=== PATIENT | male | born 1985 | race African-American/Black ===

== ENCOUNTER → 2020-09-15 07:55 | Outpatient (BNVA) | payer OTHER, SELFPAY | PROVIDERS: PCP Physician Assistant; Visit Provider Internal Medicine | DX: E11.59 Type 2 diabetes mellitus with other circulatory complications (principal); I10 Essential (primary) hypertension; E78.5 Hyperlipidemia, unspecified; Z79.4 Long term (current) use of insulin | CPT/HCPCS: 82947; 99212 ==

== ENCOUNTER 2020-09-15 08:56 | Outpatient (REF) | payer OTHER, SELFPAY ==
[2020-09-15 10:31] LABS: Hematocrit 34.5 % (42-52); Hemoglobin 10.9 g/dl (14.0-18.0); Mean Corpuscular HGB Conc 31.6 g/dl (31.0-36.0); Mean Corpuscular Hemoglobin 28.5 pg (27.0-33.0); Mean Corpuscular Volume 90.1 fL (80-98); Mean Platelet Volume 10.3 fL (9.4-12.4); Platelet Count 366 X10*3/uL (160-400); Red Blood Count 3.83 X10*6/uL (4.60-5.80); Red Cell Distribution Width 12.4 % (11.0-16.0); White Blood Count 6.4 X10*3/uL (4.8-10.8)
[2020-09-15 10:38] LABS: Alanine Aminotransferase 18 U/L (0-40); Albumin Level 4.2 g/dL (3.5-5.0); Alkaline Phosphatase 124 U/L (39-117); Anion Gap 15 (12-20); Aspartate Amino Transferase 14 U/L (5-37); Bilirubin Total 0.4 mg/dL (0.0-1.0); Blood Urea Nitrogen 26 mg/dL (9-16); Calcium 9.5 mg/dL (8.4-10.2); Carbon Dioxide 28 mmol/L (22-29); Chloride 102 mmol/L (96-108); Cholesterol 174 mg/dL; Estimated Glomerular Filt Rate 58; Glucose Fasting 116 mg/dL (60-99); HDL Cholesterol 25 mg/dL; Iron 52 mcg/dL (45-160); LDL Cholesterol Calculated 106 mg/dl; Percent Iron Saturation 19 % (15-50); Potassium 4.5 mmol/L (3.3-5.1); Sodium 140 mmol/L (135-145); Total Iron Binding Capacity 277 mcg/dL (228-428); Total Protein 7.3 g/dL (6.5-8.0); Triglycerides 216 mg/dL; Unsaturated Iron Binding 225 ug/dL
[2020-09-15 10:51] LABS: Vitamin D 25-OH Total 23.4 ng/mL (>30)
[2020-09-15 10:58] LABS: TSH reflex Free T4 2.96 uIU/mL (0.32-4.0)
[2020-09-15 11:06] LABS: Microalbum/Creatinine Ratio Ur 814.9 ug/mg cr
[2020-09-16 06:07] LABS: LDL Cholesterol Direct 113 mg/dL (<100)
[2020-09-22 14:46] LABS: Insulinoma associated 2 aatb <5.4 U/mL (<5.4)
[2020-09-22 23:51] LABS: Islet Cell Antibody Screen NEGATIVE (NEGATIVE)
[2020-09-23 08:06] LABS: Glutamic acid decarboxylase Ab <5 IU/mL (<5)
== END 2020-09-15 08:57 | disposition home or self-care (01) ==
LOC: HO.10HDL 08:56
PROVIDERS: Physician Assistant; Absent Provider Internal Medicine; Visit Provider Internal Medicine
DX: E11.59 Type 2 diabetes mellitus with other circulatory complications (principal); Z79.4 Long term (current) use of insulin; D50.9 Iron deficiency anemia, unspecified; E55.9 Vitamin D deficiency, unspecified
CPT/HCPCS: 36415; 80053; 80061; 82043; 82306; 83540; 83721; 84443; 85027; 86255; 86341

== ENCOUNTER → 2020-10-14 13:03 | Outpatient (BNVA) | payer OTHER, SELFPAY | PROVIDERS: PCP Physician Assistant; Visit Provider Dietitian, Registered ==

== ENCOUNTER → 2020-11-01 13:03 | Outpatient (BNVA) | payer OTHER, SELFPAY | PROVIDERS: PCP Physician Assistant; Visit Provider Internal Medicine ==

== ENCOUNTER → 2020-11-12 11:11 | Outpatient (BNVA) | payer OTHER, SELFPAY | PROVIDERS: PCP Physician Assistant; Visit Provider Dietitian, Registered | DX: E11.59 Type 2 diabetes mellitus with other circulatory complications (principal); Z79.4 Long term (current) use of insulin | CPT/HCPCS: 97803 ==

== ENCOUNTER → 2020-11-19 08:22 | Outpatient (BNVA) | payer OTHER, SELFPAY | PROVIDERS: PCP Physician Assistant; Visit Provider Surgery ==

== ENCOUNTER → 2020-11-24 12:58 | Outpatient (BNVA) | payer OTHER, SELFPAY | PROVIDERS: PCP Physician Assistant; Visit Provider Physician Assistant ==

== ENCOUNTER 2020-12-09 08:48 | Outpatient (REF) | payer OTHER, SELFPAY ==
--- NOTE | ~2020-12-09 | US_ITS ---
EXAMINATION: US COMPLETE ABDOMEN WITH LIVER ELASTOGRAPHY CLINICAL INFORMATION: Type 2 diabetes mellitus with other circulatory findings. COMPARISON: None. TECHNIQUE: Real-time imaging of the abdominal viscera. Noninvasive ultrasound liver fibrosis assessment is performed using Jose Martin ElastPQ point quantification shear wave elastography (pSWE) with a C5-2 MHz transducer. Multiple elastography samples are obtained. FINDINGS: PANCREAS: The body of the pancreas appears homogeneous in echotexture. The head and the tail of the pancreas are obscured by overlying gas. ABDOMINAL AORTA: The proximal, middle, and distal aortic segments are normal in caliber. INFERIOR VENA CAVA: Visualized portions are normal. LIVER: The liver demonstrates normal size, contour and increased echogenicity. There is a focal area of fatty sparing around the gallbladder. No other focal lesion or intrahepatic biliary duct dilatation. The right lobe measures 22.3 cm in length. The left lobe measures 18.2 cm in length. Portal flow is hepatopedal. Shear wave liver elastography median stiffness is 2.62 m/s (reference: normal median stiffness is 1.3 m/s or less). IQR/median stiffness to assess sampling precision is 0.31 (reference: good quality data set is IQR/median stiffness of 0.15 or less). GALLBLADDER: Normal. The gallbladder is physiologically distended without evidence of stones, sludge, polyps, wall thickening or pericholecystic fluid. COMMON BILE DUCT: Normal in caliber measuring 0.7 cm in diameter. RIGHT KIDNEY: Normal. No hydronephrosis. No renal calculi or focal parenchymal lesions. The kidney measures 12.0 cm in maximum dimension. LEFT KIDNEY: Normal. No hydronephrosis. No renal calculi or focal parenchymal lesions. The kidney measures 13.1 cm in maximum dimension. SPLEEN: Normal. The spleen measures 9.5 cm in maximum dimension. FREE FLUID: None. US/US abdomen comp w elastography IMPRESSION: 1. Hepatic steatosis with area of focal fatty sparing around the gallbladder. 2. Liver elastography: Highly suggestive of CSPH. REFERENCE: Society of Radiologists in Ultrasound Liver Stiffness Thresholds (2019): LIVER STIFFNESS THRESHOLDS: *Liver Stiffness equal or less than 1.3 m/s: High probability of being normal. *Liver Stiffness less than 1.7 m/s: In the absence of other known clinical signs, rules out compensated advanced chronic liver disease. *Liver Stiffness 1.7-2.1 m/s: Suggestive of compensated advanced chronic liver disease but need further test for confirmation. *Liver Stiffness over 2.1 m/s: Rules in compensated advanced chronic liver disease. *Liver Stiffness over 2.4 m/s: Suggestive of clinically significant portal hypertension. QUALITY OF DATA SET: *IQR/Median value equal or less than 0.15 implies a quality data set. *IQR/Median value over 0.15 implies a poor quality data set. SIGNIFICANT CHANGE FROM PRIOR EXAM: Significant change if liver stiffness measurement is 10% or greater from prior exam. OTHER CONSIDERATIONS: The stage of liver fibrosis may be overestimated in the setting of acute hepatitis, liver inflammation, elevated liver function tests, hepatic vascular congestion, obstructive cholestasis, non-fasting state, and infiltrative diseases such as amyloidosis and lymphoma. In some patients with NAFLD, the liver stiffness thresholds for compensated advanced chronic liver disease may be lower. In causes other than viral hepatitis and NAFLD, liver stiffness thresholds are not well established.
--- NOTE | ~2020-12-09 | FL_ITS ---
EXAMINATION: XR GI SERIES CLINICAL INFORMATION: Type 2 diabetes mellitus. COMPARISON: None TECHNIQUE: Routine upper GI single-contrast study. FINDINGS: Following oral administration of thin barium in recumbent position, there is normal propagation of bolus from the oral cavity through the pharynx, esophagus into stomach without any evidence of obstruction, narrowing or stricture. The gastroesophageal junction is widely patent. A large gastroesophageal reflux is seen. There is normal flow seen through the stomach into the duodenum. The course, caliber and peristalsis of the stomach and the duodenum are normal. The mucosal pattern of the stomach and the duodenum is normal. FLUOROSCOPY TIME: 1.3 minutes DOSE AREA PRODUCT: 57.362 uGy-m2 (microgray-meter squared) FL/FL upper GI series IMPRESSION: Large gastroesophageal reflux without hiatal hernia. Otherwise, unremarkable single-contrast barium study in the recumbent position.
--- NOTE | ~2020-12-09 | XR_ITS ---
EXAMINATION: XR CHEST CLINICAL INFORMATION: Type 2 diabetes. COMPARISON: None TECHNIQUE: 2 views of the chest were obtained. FINDINGS: No significant abnormality is noted involving the heart, lungs, mediastinum, bony thorax or soft tissues. XR/XR chest 2V IMPRESSION: Unremarkable chest examination.
[2020-12-09 11:17] LABS: MANUAL DIFF FLAG NO
[2020-12-09 11:32] LABS: Estimated Average Glucose 220 mg/dL; Hemoglobin A1c % 9.3 %
[2020-12-09 11:46] LABS: Basophils Percent Auto 0.7 % (0-2); Eosinophils Absolute Auto 0.2 X10*3/uL (0.0-0.4); Eosinophils Percent Auto 3.2 % (0-4); Hematocrit 35.9 % (42-52); Hemoglobin 11.3 g/dl (14.0-18.0); Imm Gran Abs Auto 0.02 X10*3/uL (0.00-0.03); Imm Gran Pct Auto 0.3 % (0.0-0.4); Lymphocytes Percent Auto 33.9 % (20-40); Mean Corpuscular HGB Conc 31.5 g/dl (31.0-36.0); Mean Corpuscular Hemoglobin 28.2 pg (27.0-33.0); Mean Corpuscular Volume 89.5 fL (80-98); Mean Platelet Volume 10.2 fL (9.4-12.4); Monocytes Absolute Auto 0.4 X10*3/uL (0.1-1.2); Monocytes Percent Auto 6.9 % (2-11); Neutrophils Absolute Auto 3.2 X10*3/uL (2.0-8.3); Platelet Count 362 X10*3/uL (160-400); Red Blood Count 4.01 X10*6/uL (4.60-5.80); Red Cell Distribution Width 12.2 % (11.0-16.0); White Blood Count 5.9 X10*3/uL (4.8-10.8)
[2020-12-09 11:52] LABS: Alanine Aminotransferase 21 U/L (0-40); Albumin Level 4.6 g/dL (3.5-5.0); Alkaline Phosphatase 119 U/L (39-117); Anion Gap 14 (12-20); Aspartate Amino Transferase 16 U/L (5-37); Bilirubin Total 0.6 mg/dL (0.0-1.0); Blood Urea Nitrogen 28 mg/dL (9-16); C Reactive Protein 0.93 mg/dL (< or = 0.50); Calcium 9.9 mg/dL (8.4-10.2); Carbon Dioxide 27 mmol/L (22-29); Chloride 105 mmol/L (96-108); Cholesterol 144 mg/dL; Estimated Glomerular Filt Rate 52; Glucose Random 80 mg/dL (60-115); HDL Cholesterol 22 mg/dL; LDL Cholesterol Calculated 86 mg/dl; Potassium 4.7 mmol/L (3.3-5.1); Sodium 141 mmol/L (135-145); Total Protein 7.9 g/dL (6.5-8.0); Triglycerides 183 mg/dL
[2020-12-09 11:56] LABS: Ferritin 208 ng/mL (20-250); TSH reflex Free T4 1.89 uIU/mL (0.32-4.0); Vitamin D 25-OH Total 27.6 ng/mL (>30)
[2020-12-09 12:13] LABS: Folate 9.2 ng/mL (> or = 4.0); Vitamin B12 560 pg/mL (200-900)
[2020-12-10 17:57] LABS: Calcium (PTHI) 9.8 mg/dL (8.6-10.3); PTHI 87 pg/mL (14-64)
[2020-12-12 23:47] LABS: Zinc 82 mcg/dL (60-130)
[2020-12-14 11:41] LABS: Vitamin A 82 mcg/dL (38-98)
[2020-12-15 12:44] LABS: Vitamin B1 7 nmol/L (8-30)
== END 2020-12-09 08:49 | disposition home or self-care (01) ==
LOC: HO.US 08:48
PROVIDERS: PCP Physician Assistant; Visit Provider Surgery
DX: K21.9 Gastro-esophageal reflux disease without esophagitis (principal); S88.119A Complete traumatic amputation at level between knee and ankle, unspecified lower leg, initial encounter; E11.59 Type 2 diabetes mellitus with other circulatory complications; E66.01 Morbid (severe) obesity due to excess calories; E78.5 Hyperlipidemia, unspecified; G47.30 Sleep apnea, unspecified; I10 Essential (primary) hypertension; G47.10 Hypersomnia, unspecified; G47.19 Other hypersomnia; Z79.4 Long term (current) use of insulin
CPT/HCPCS: 36415; 71046; 74240; 76705; 76981; 80053; 80061; 82306; 82607; 82728; 82746; 83036; 83525; 83970; 84425; 84443; 84590; 84630; 85025; 86140

== ENCOUNTER → 2020-12-13 08:18 | Outpatient (BNVA) | payer OTHER, SELFPAY | PROVIDERS: PCP Physician Assistant; Visit Provider Surgery ==

== ENCOUNTER → 2020-12-14 11:29 | Outpatient (BNVA) | payer OTHER, SELFPAY | PROVIDERS: PCP Physician Assistant; Visit Provider Physician Assistant ==

== ENCOUNTER → 2020-12-15 08:05 | Outpatient (BNVA) | payer OTHER, SELFPAY | PROVIDERS: PCP Physician Assistant; Visit Provider Dietitian, Registered | DX: E66.01 Morbid (severe) obesity due to excess calories (principal); Z68.43 Body mass index [BMI] 50.0-59.9, adult | CPT/HCPCS: 97802 ==

== ENCOUNTER 2020-12-30 07:13 | Day surgery (SDC) | payer OTHER, SELFPAY ==
[2020-12-23 13:15] VITALS: BMI 52.4
--- NOTE | 2020-12-28 14:43 | P.CONAN_ITS ---
Documented by User: Doreen Hernández 12/29/20 08:58 HPI - Anesthesia Eval Consult details Narrative: 35yo M for Upper Endoscopy h/o BKA L eye blind PMFSH Active Problems Active Problems: All Active Problems (Updated 12/23/20 @ 12:58 by Jessica Gloria) Type 2 diabetes mellitus (Acute) HTN (hypertension) (Acute) Below knee amputation (Acute) Morbidly obese (Acute) GERD (gastroesophageal reflux disease) (Acute) Amputated right leg (Acute) Phantom pain (Acute) Adjustment disorder, unspecified (Acute) Depression (Acute) Neuropathy (Acute) CVA (cerebral vascular accident) (Acute) Sleep apnea (Acute) Obesity (Acute) Vitamin D deficiency (Acute) HLD (hyperlipidemia) (Acute) Past Medical History Medical History Below knee amputation Blind left eye CVA (cerebral vascular accident) Depression GERD (gastroesophageal reflux disease) GERD (gastroesophageal reflux disease) HLD (hyperlipidemia) HTN (hypertension) Neuropathy Obesity Right below-knee amputee Sleep apnea Type 2 diabetes mellitus Vitamin D deficiency Family History Family History Mother Diabetes Father Prostate cancer Paternal Aunt Diabetes Brother No problems noted. Brother No problems noted. Brother No problems noted. Brother No problems noted. Brother No problems noted. Sister No problems noted. Surgical History Surgical History History of amputation of right foot Hx of eye surgery Social History Social History Alcohol intake: never Patient Tobacco Use Status: Never used Tobacco Use of substances other than those prescribed or required for medical reasons: No Have you been hit, kicked, punched, or otherwise hurt by someone within the past year? If so, by whom?: No Are you DNR?: No Advance Directives: No Advance Directives Information Provided: No Advance Directives on File: No Recently lost weight without trying: No Meds Allergies Allergy/AdvReac Type Severity Reaction Status Date / Time No Known Allergies Allergy Verified 12/23/20 12:58 Home Medications Medication Instructions Recorded Confirmed Last Taken Type lancets 28 gauge #100 ea 06/21/20 11/19/20 Unknown History blood sugar diagnostic #10 ea 09/15/20 11/19/20 Unknown History dorzolamide-timolol 1 drp OPHTHALMIC-RIGHT BID 12/23/20 12/23/20 Unknown History latanoprost 1 drp OPHTHALMIC (EYE) BEDTIME 12/23/20 12/23/20 Unknown History lisinopril 1 tab PO DAILY 12/23/20 12/23/20 Unknown History Exam Exam Date and Time: December 28, 2020 1443 Height,Weight and Vital Signs: Height 5 ft 9 in Weight 161.025 kg Pertinent Lab Results Pertinent Lab Results: Laboratory Tests 12/09/20 12/09/20 10:35 10:35 WBC 5.9 Hgb 11.3 L Hct 35.9 L Plt Count 362 Sodium 141 Potassium 4.7 Chloride 105 Carbon Dioxide 27 BUN 28 H Creatinine 1.52 H Assessment and Plan Assessment Anesthesia Assessment: Chart Reviewed Documented by User: Cristal Sher 12/30/20 08:23 [facility] Past Medical History Medical History Below knee amputation Blind left eye CVA (cerebral vascular accident) Depression GERD (gastroesophageal reflux disease) GERD (gastroesophageal reflux disease) HLD (hyperlipidemia) HTN (hypertension) Neuropathy Obesity Right below-knee amputee Sleep apnea Type 2 diabetes mellitus Vitamin D deficiency Family History Family History Mother Diabetes Father Prostate cancer Paternal Aunt Diabetes Brother No problems noted. Brother No problems noted. Brother No problems noted. Brother No problems noted. Brother No problems noted. Sister No problems noted. Surgical History Surgical History History of amputation of right foot Hx of eye surgery Social History Social History Alcohol intake: never Patient Tobacco Use Status: Never used Tobacco Use of substances other than those prescribed or required for medical reasons: No Have you been hit, kicked, punched, or otherwise hurt by someone within the past year? If so, by whom?: No Are you DNR?: No Advance Directives: No Advance Directives Information Provided: No Advance Directives on File: No Recently lost weight without trying: No Meds Allergies Allergy/AdvReac Type Severity Reaction Status Date / Time No Known Allergies Allergy Verified 12/23/20 12:58 Home Medications Medication Instructions Recorded Confirmed Last Taken Type lancets 28 gauge #100 ea 06/21/20 11/19/20 Unknown History blood sugar diagnostic #10 ea 09/15/20 11/19/20 Unknown History dorzolamide-timolol 1 drp OPHTHALMIC-RIGHT BID 12/23/20 12/23/20 Unknown History latanoprost 1 drp OPHTHALMIC (EYE) BEDTIME 12/23/20 12/23/20 Unknown History lisinopril 1 tab PO DAILY 12/23/20 12/23/20 Unknown History Exam Airway Mallampati Class: III TM Dist: >3cm Neck ROM: Limited Loose/Missing/Broken Teeth: No Heart: RRR Lungs: CTA Assessment and Plan Assessment Anesthesia Assessment: Anesthesia Plan Discussed and Chart Reviewed Final Anesthetic Review NPO: Yes ASA Class: III Final Preanesthetic Review: Meds/Allgs Chart Reviewed, Consent Obtained/Reviewed and Anes Risks/Benef Reviewed Patient Risk: Intermediate Procedure Risk: Intermediate Anesthetic Plan Anesthetic Plan: MAC: Disposition: Standard PACU
[2020-12-30 07:27] LABS: Glucose, Whole Blood 272 mg/dL (60-115)
[2020-12-30 07:29] VITALS: BP 168/87; PULSE 98; RESP 18; TEMP 35.9; O2SAT 98
--- NOTE | 2020-12-30 07:41 | MHC.SHP ---
Pre-Procedural Eval Section A The patient is an INPATIENT: No The History & Physical has been completed within 30 days and I have reviewed it.: Yes Section B Chief Complaint: GERD Details of Present Illness: GERD Relevant Family History (Specify if Yes): No Relevant Social History: None Present Medications: None Medical History: No relevant PMH History of Previous Operations: No relevant previous surgery Allergies: Allergies Allergy/AdvReac Type Severity Reaction Status Date / Time No Known Allergies Allergy Verified 12/23/20 12:58 Review of Systems Sugical H&P ROS: Negative: Constitution, Cardiovascular, Respiratory, Neurological, Psychiatric, Hem-Onc, Allergic/Immunologic, Gastrointestinal, Genitourinary, Musculoskeletal, Integumentary, Endocrine and Eyes/Ears/Nose/Throat Exam Surgical H&P Exam: Normal: HEENT, Normal: Heart, Normal: Lungs, Normal: Extremities, Normal: Abdomen, Normal: Skin and Normal: Neurological Plan Diagnosis/Plan: Unchanged (EGD to assess for GERD and H pylori) I have reviewed the history and physical and performed a pertinent physical examination on my patient. No changes have occurred unless specified.
--- NOTE | 2020-12-30 08:02 | PM.OP ---
Brief Operative Note Date of Service: 12/30/20 Pre-op diagnosis: GERD Post-op diagnosis: same (Hiatal hernia and esophagitis) Procedure: PROCEDURE DATE: 12/30/2020 PREOPERATIVE DIAGNOSIS: GERD and obesity POSTOPERATIVE DIAGNOSIS: Same as above. 1) small hiatal hernia, 2) distal gastritis, 3) esophagitis III, PROCEDURE: [id number] with biopsies Surgeon: Andrés Hays M.D.. Ph.D. Sanitation Supervisor: None Anesthesia: IV sedation Estimated blood loss: Minimal FINDINGS AND PROCEDURE: OPERATIVE INDICATIONS: The patient is a 35 year old female known to nd who is evaluated for morbid obesity and bariatric surgery. She had severe GERD and was not able to discontinue the PPI for 2 weeks to perform the H. pylori breath test. She presents for an endoscopy and a biopsy. Risks and complications of the surgery were discussed with the patient in advance particularly the possibility of perforation or bleeding that may require surgical intervention. The patient understood the risks and was in agreement with the plan. PROCEDURE: After informed consent was obtained by the patient, the patient was transferred to the Operating Room and was placed in the supine position. After successful induction of IV sedation, a mouth block was inserted and the patient was placed in the left lateral decubitus position. An upper endoscopy was performed next, the oropharynx and esophagus appeared within the normal limits. There was a small hiatal hernia. The z-line was irregular with tongues of gastric mucosa protruding into the esophagus in more than 50% circumference. One biopsy was obtained from the distal esohagus 2-3 cm proximal to the GE junction and two additional biopsies from the GE junction. The stomach was entered and it appeared to be of normal size. There was mild gastritis at distal antrum. There was no stricture or ulcer. Biopsies were obtained from the proximal stomach as well as the distal antrum. No significant bleeding was noted from any of the biopsy sites. The scope was then advanced into the duodenum which appeared to be normal as well. At that point the duodenum and the stomach were decompressed and the scope was withdrawn from the patient's mouth. The patient extubated and was transferred in stable condition to the Recovery Room for further care. I was present and performed all steps of the procedure. There were no residents to assist with this case. Andrés Hays M.D., Ph.D. Surgeon: Neri Hays MD Anesthesia: MAC Was an Sanitation Supervisor used for this Procedure?: No Estimated blood loss (mL): 0 IV fluids (mL): 400 Urine output (mL): 0 (No [place] to record) Pathology: other (1) GEJ x2, distal esophagus x1, 3) proximal stomach x1, 4) antrum x1) Condition: stable Disposition: PACU
[2020-12-30] MEDS: 0.9 % Sodium Chloride 1,000 ML 50 ML IVCONT (08:19)
[2020-12-30 08:55] VITALS: BP 113/55; PULSE 63; RESP 16; TEMP 36.6; O2SAT 96
[2020-12-30 09:10] VITALS: BP 141/85; PULSE 97; RESP 18; O2SAT 94
[2020-12-30 09:34] VITALS: BP 151/86; PULSE 95; RESP 18; O2SAT 96
== END 2020-12-30 10:26 ==
LOC: HO.SSS 07:13
PROVIDERS: PCP Physician Assistant; Visit Provider Surgery
PROC: 0DJ08ZZ Inspection of Upper Intestinal Tract, Via Natural or Artificial Opening Endoscopic (ICD-10-PCS; CPT 43235; principal; 2020-12-30 07:30)
DX: K21.9 Gastro-esophageal reflux disease without esophagitis (principal); K29.50 Unspecified chronic gastritis without bleeding; K44.9 Diaphragmatic hernia without obstruction or gangrene; K20.80 Other esophagitis without bleeding; E66.9 Obesity, unspecified; I10 Essential (primary) hypertension; G47.33 Obstructive sleep apnea (adult) (pediatric); E11.9 Type 2 diabetes mellitus without complications; G62.9 Polyneuropathy, unspecified; E78.5 Hyperlipidemia, unspecified; Z79.4 Long term (current) use of insulin; E55.9 Vitamin D deficiency, unspecified; Z89.511 Acquired absence of right leg below knee; Z79.899 Other long term (current) drug therapy
CPT/HCPCS: 43239; 82947; 88305; 88342

== ENCOUNTER → 2021-01-04 14:01 | Outpatient (BNVA) | payer OTHER, SELFPAY | PROVIDERS: PCP Physician Assistant; Referring Provider Physician Assistant; Visit Provider Internal Medicine | DX: Z01.810 Encounter for preprocedural cardiovascular examination (principal); E66.01 Morbid (severe) obesity due to excess calories; E11.8 Type 2 diabetes mellitus with unspecified complications; I10 Essential (primary) hypertension; Z86.73 Personal history of transient ischemic attack (TIA), and cerebral infarction without residual deficits | CPT/HCPCS: 93005; 99202 ==

== ENCOUNTER → 2021-01-10 07:47 | Outpatient (BNVA) | payer OTHER, SELFPAY | PROVIDERS: PCP Physician Assistant; Visit Provider Surgery ==

== ENCOUNTER → 2021-01-13 08:10 | Outpatient (BNVA) | payer OTHER, SELFPAY | PROVIDERS: PCP Physician Assistant; Visit Provider Dietitian, Registered | DX: E66.01 Morbid (severe) obesity due to excess calories (principal); Z68.43 Body mass index [BMI] 50.0-59.9, adult | CPT/HCPCS: 97803 ==

== ENCOUNTER → 2021-01-19 13:56 | Outpatient (REF) | payer OTHER, SELFPAY ==
--- NOTE | 2021-01-19 14:01 | CA_ITS ---
Transthoracic Echocardiogram Patient (Last, First, Middle): Kaitlynn Gómezrus, Gender: Male Date of : 1985 Age: 35 Procedure Date: 01/19/2021 Procedure Type: Transthoracic Echocardiogram Location: OP Height: 175.26 cm Weight: 161.03 kg BSA: 2.64 m2 Heart Rate: bpm BP: 118 / 76 mmHg Engineering Program Manager: MIKKI Referring MD: Jaguar Dodge MD Symptoms: Z01.810 - Encounter for preprocedural cardiovascular exam... Study Quality: Technically Difficult ECG Rhythm: Sinus Conclusions: - The left ventricular systolic function is normal. The visually estimated ejection fraction is between 60-65%. - There is mild mitral annular calcification. - No obvious valvular pathology seen on this study. Findings Procedure Information Contrast agent, definity, is being given per protocol without apparent complications. The patient receives contrast. Left Ventricle Normal left ventricular cavity size. There is moderately increased left ventricular wall thickness. The left ventricular systolic function is normal. The visually estimated ejection fraction is between 60-65%. There is no evidence of regional wall motion abnormalities. E/E prime ratio is between 8 and 15 consistent with indeterminate filling pressures. Evidence suggests grade I (mild) diastolic dysfunction. Right Ventricle Normal right ventricular cavity size and systolic function. Atria The left atrium is mildly dilated. The right atrium is normal in size. Aortic Valve There is a normal trileaflet aortic valve. There is no aortic valve stenosis. There is no aortic valve regurgitation. Mitral Valve There is mild mitral annular calcification. There is no mitral valve regurgitation. There is no mitral valve stenosis. Pulmonic Valve The pulmonic valve was not well visualized. Tricuspid Valve Normal tricuspid valve structure. There is trace tricuspid valve regurgitation. The pulmonary artery systolic pressure is normal. Great Vessels The aortic annulus, sinuses of valsalva, and asc aorta are normal in size. Venous The inferior vena cava was not well visualized. Pericardium/Pleural There is a trivial pericardial effusion. Prior Study Comparison No prior study available for comparison. Recommendations, Care & Conclusions No obvious valvular pathology seen on this study. Measurements M-Mode Liner Measurements Normals - Women/Men AOV Cusps: 2.40 1.5-2.6 cm/m2 2D Linear Measurements IVSd: 1.37 0.6-0.9/0.6-1.0 cm LVIDd: 4.68 3.9-5.3/4.2-5.9 cm LVIDd Index: 1.77 2.4-3.2/2.2-3.1 cm/m2 LVIDs: 3.29 2.0-3.6 cm LVPWd: 1.42 0.7-1.1 cm Ao Root: 3.00 2.1-3.5 cm LA Diam: 4.50 2.7-3.8/3.0-4.0 cm LAIDs Index: 1.70 1.5-2.3 cm/m2 LV Mass: 326.90 67-162/88-224 g LV Mass Index: 123.83 43-95/49-115 g/m2 LVOT Diam: 2.30 3.0+(-)1.3 cm Mitral Valve MV Pk E: 1.35 MV PK A: 1.42 MV Decel Time: 198.00 E/A: 1.00 E'Lateral: 7.83 E'Medial: 10.40 E/E' Med: 13.00 E/E' Lat: 17.20 PHT: 58.00 MVA PHT: 3.79 Decel [place]S: 6.81 Aortic Valve AoV Pk [place]: 1.45 AoV Mn Jordan: 1.01 AoV VTI: 0.25 AoV Pk Grad: 8.00 Aov Mn Grad: 5.00 PETTY Cont.VTI: 3.24 LVOT LVOT Pk [place]: 1.08 LVOT Mn [place]: 0.83 LVOT VTI: 0.20 LVOT Pk Grad: 5.00 LVOT Mn Grad: 3.00 LVOT Diam: 2.30 LVOT Area: 4.15 Diastolic Function MV Pk E: 1.35 MV Pk A: 1.42 E/A: 1.00 E'Medial: 10.40 E/E' Med: 13.00 E' Laterial: 7.83 E/E' Lat: 17.20 Great Vessels Aorta Ao Root-2D: 3.00 2.0-3.7 cm Ao Asc: 2.90 2.1-3.4 cm Pulmonary Valve PV Pk [place]: 1.17 Peak PV Grad: 5.00 Updated in Other Vendor System with Status of Final Jaguar Dodge MD electronically signed on 01/21/2021 1:30:40 PM with status of Final
== END ==
LOC: HO.CARD 13:56
PROVIDERS: Visit Provider Internal Medicine
DX: Z01.810 Encounter for preprocedural cardiovascular examination (principal)
CPT/HCPCS: 93306; Q9957

== ENCOUNTER → 2021-02-02 10:10 | Outpatient (REF) | payer OTHER, SELFPAY ==
--- NOTE | ~2021-02-02 | NM_ITS ---
Lexiscan Myocardial perfusion study Indication: Preoperative cardiac vascular evaluation, assess for coronary disease Technique: The patient was brought in for a Lexiscan perfusion study on 02/02/2021 and was injected 0.4 mg of Lexiscan intravenously. Within a minute of this injection 45 mCi of sestamibi was given intravenously. Images were obtained using the SPECT gamma camera interlaced with the gating device. Images were obtained in supine position. Resting perfusion study was performed on 02/03/2021. Patient was administered 45 mCi of sestamibi intravenously at rest. Images were then obtained in supine position. Total DLP 184mGy-cm. Images were processed with the software and compared side to side in short axis, horizontal long axis and vertical long axis views. Findings: Raw acquisition was reviewed. The stress perfusion study showed diminished tracer uptake along the lateral wall. With CT attenuation correction, there is improved uptake and hence this could all be from soft tissue attenuation artifact. The gated study shows normal LV systolic function with calculated LVEF of 63%. LV cavity is normal in size. The gated study shows diminished thickening in the lateral wall. Resting study shows no significant perfusion abnormality. Gating at rest reveals normal wall motion with ejection fraction at 55%. The findings are consistent with reversible lateral wall defect. NM/NM stuart perf SPECT rest & str Impression: 1. Myocardial perfusion imaging study shows reversible lateral defect but improving with CT attenuation correction. Probably from soft tissue attenuation artifact. Less likely to be from ischemia. 2. Gated LVEF is 63% during stress and 55% during rest. 3. Transient ischemic dilatation not present. EKG component of the test reported separately.
--- NOTE | 2021-02-02 10:18 | CA_ITS ---
Acquisition Time: 2021-02-02 10:24:19 Total Exercise Time: 00:02:00 Test Indications: PREOP Medications: SEE CHART Protocol: LEXISCAN Max HR: 106 BPM 57% of Pred: 184 BPM Max BP: 142/078 mmHG Max Work Load: 1.0 METS Pharmacological stress test with lexiscan injection, while sitting and kicking his left leg, without anginal symptoms, without arrythmia, with normotensive response to injection, with nondiagnostic EKG for ischemia. Nuclear images pending. Test reviewed with Dr Goldstein. Referred By: Jaguar Dodge Overread By: JUAN TORRE
== END ==
LOC: HO.CARD 10:10
PROVIDERS: Visit Provider Internal Medicine
DX: Z01.810 Encounter for preprocedural cardiovascular examination (principal)
CPT/HCPCS: 78452; 93017; A9500; J0280; J2785

== ENCOUNTER → 2021-02-28 13:39 | Outpatient (BNVA) | payer OTHER, SELFPAY | PROVIDERS: PCP Physician Assistant; Referring Provider Physician Assistant; Visit Provider Internal Medicine | DX: Z01.810 Encounter for preprocedural cardiovascular examination (principal); E66.01 Morbid (severe) obesity due to excess calories; E11.8 Type 2 diabetes mellitus with unspecified complications; I10 Essential (primary) hypertension; Z86.73 Personal history of transient ischemic attack (TIA), and cerebral infarction without residual deficits | CPT/HCPCS: 99212 ==

== ENCOUNTER → 2021-03-02 06:55 | Outpatient (BNVA) | payer OTHER, SELFPAY | PROVIDERS: PCP Physician Assistant; Visit Provider Surgery ==

== ENCOUNTER 2021-03-22 14:55 | Emergency (ER) | payer OTHER, SELFPAY ==
--- NOTE | ~2021-03-22 | XR_ITS ---
EXAMINATION: XR TOES, LEFT CLINICAL INFORMATION: First and second toe wound; question osteomyelitis. COMPARISON: None TECHNIQUE: Frontal, oblique and lateral views of the left toes were obtained. FINDINGS: Bony alignment and mineralization are normal. At the lateral articular surface of the base of the distal phalanx of the left great toe, there is a small focal cortical erosion. No periosteal thickening is seen. There is a small avulsion fragment of indeterminate chronicity is seen at the lateral aspect of the first metatarsophalangeal joint. There is mild osteoarthritic change of the left first and fifth metatarsophalangeal joints. A small bunionette is seen of the fifth metatarsal head. There is an old, healed of fracture of the second proximal phalanx. No acute fracture or dislocation is seen. There are atherosclerotic calcifications. There is generalized soft tissue swelling of the first and second toes. No soft tissue gas or foreign body is seen. XR/XR toe LT min 2V IMPRESSION: 1. There is soft tissue swelling of the left great toe. There is a small focal cortical erosion at the lateral aspect of the articular surface of the base of the distal phalanx of the left great toe. This is suspicious for acute osteomyelitis, versus alternatively a tiny osteochondral defect, and could be more fully evaluated with MRI, if clinically indicated. 2. At the lateral aspect of the first metatarsophalangeal joint, there is a small avulsion fragment of indeterminate chronicity. Please correlate clinically. 3. There is mild osteoarthritic change of the left first and fifth metatarsophalangeal joints. 4. The left second toe shows soft tissue swelling, without finding to suggest acute osteomyelitis. There is an old, healed fracture of the left second proximal phalanx. 5. There is a small bunionette is seen of the left fifth metatarsal head.
[2021-03-22 15:42] VITALS: BP 133/75; PULSE 93; RESP 18; TEMP 36.8; O2SAT 98; BMI 53.1
[2021-03-22 19:36] VITALS: BP 135/69; PULSE 90; RESP 18; TEMP 36.6; O2SAT 99
--- NOTE | 2021-03-22 19:47 | ED_ITS ---
HPI - Extremity Injury (Lower) General Chief Complaint: Extremity Injury, Lower <Guy Gutiérrez MD - Last Filed: 03/22/21 21:01> Stated Complaint: toe infection <Guy Gutiérrez MD - Last Filed: 03/22/21 21:01> Time Seen by Provider: 03/22/21 19:47 <Guy Gutiérrez MD - Last Filed: 03/22/21 21:01> Source: patient <Guy Gutiérrez MD - Last Filed: 03/22/21 21:01> Mode of arrival: ambulatory <Guy Gutiérrez MD - Last Filed: 03/22/21 21:01> Limitations: no limitations <Guy Gutiérrez MD - Last Filed: 03/22/21 21:01> History of Present Illness HPI Narrative: patient with left toe infection for past 4 days. patient with diabetic neuropathy, no fever. Patient denies injury. His PMD Dr. Guevara feels that the toe infection might have started with his toe trimming by his pediatrist.. patient is currently on bactrim and Keflex. <Guy Gutiérrez MD - Last Filed: 03/22/21 21:01> MD complaint: other (foot infection) <Guy Gutiérrez MD - Last Filed: 03/22/21 21:01> Onset (ago): day(s) <Guy Gutiérrez MD - Last Filed: 03/22/21 21:01> Related Data Home Medications: Home Medications Medication Instructions Recorded Confirmed lancets 28 gauge #100 ea 06/21/20 03/22/21 dorzolamide 22.3 mg-timolol 6.8 1 drp OPHTHALMIC-RIGHT BID 12/23/20 03/22/21 mg/mL eye drops latanoprost 0.005 % eye drops 1 drp OPHTHALMIC (EYE) BEDTIME 12/23/20 03/22/21 lisinopril 20 mg tablet 1 tab PO DAILY 12/23/20 03/22/21 melatonin 10 mg tablet 10 mg PO DAILY 01/04/21 03/22/21 Previous Rx's Medication Instructions Recorded blood pressure kit-extra large #1 ea 05/17/20 incontinence pad, liner, disp #18 ea 06/08/20 latex gloves (Latex Gloves, Large) #24 ea 06/08/20 alcohol swabs 1 pad TOPICAL QID #200 pad 10/07/20 omeprazole 40 mg capsule,delayed 40 mg PO DAILY 90 Days #90 cap 10/07/20 release pantoprazole 40 mg tablet,delayed 40 mg PO DAILY 90 Days #90 tab 10/07/20 release pen needle, diabetic 31 gauge x #1200 ea 10/07/2012/19 spironolactone 25 mg tablet 25 mg PO DAILY 90 Days #90 tab 10/07/20 miscellaneous medical supply 1 ea MISCELLANEOUS .once per week 10/21/20 28 Days #4 ea atorvastatin 80 mg tablet 80 mg PO BEDTIME 30 Days #30 tab 11/01/20 duloxetine 30 mg capsule,delayed 30 mg PO BID #60 cap 11/14/20 release nifedipine 90 mg tablet,extended 90 mg PO DAILY #30 tab 12/27/20 release 24 hr cholecalciferol (vitamin D3) 25 25 mcg PO DAILY #30 tab 01/06/21 mcg (1,000 unit) tablet (Vitamin D3) furosemide 40 mg tablet 40 mg PO DAILY 90 Days #90 tab 01/06/21 aspirin 81 mg tablet,delayed 81 mg PO DAILY 90 Days #90 tab 02/02/21 release (Adult Aspirin Regimen) ferrous sulfate 325 mg (65 mg 325 mg PO DAILY #30 tab 02/02/21 iron) tablet acetaminophen 650 mg 1,300 mg PO Q8H PRN 90 Days #180 02/10/21 tablet,extended release (Mapap tab Arthritis Pain) carvedilol 25 mg tablet 25 mg PO BID #180 tab 02/16/21 tramadol 50 mg tablet 50 mg PO BID 30 Days #60 tab 02/21/21 insulin regular hum U-500 conc 300 unit SUBCUT .COMPLEX 30 Days 02/26/21 (Humulin R U-500 (Conc) Insulin #18 ml Kwikpen) miscellaneous medical supply 1 ea MISCELLANEOUS ONCE 28 Days #4 03/09/21 ea gabapentin 600 mg tablet 600 mg PO BID 30 Days #60 tab 03/14/21 hydralazine 100 mg tablet 100 mg PO BID #60 tab 03/14/21 blood sugar diagnostic #100 ea 03/18/21 blood sugar diagnostic (FreeStyle #100 ea 03/21/21 Lite Strips) cephalexin 500 mg capsule 500 mg PO Q12H 10 Days #20 cap 03/21/21 sulfamethoxazole 800 1 tab PO Q12H 10 Days #20 tab 03/21/21 mg-trimethoprim 160 mg tablet (Bactrim DS) doxycycline hyclate 100 mg capsule 100 mg PO BID 10 Days #20 cap 03/23/21 <Guy Gutiérrez MD - Last Filed: 03/22/21 21:01> Allergies/Adverse Reactions: Allergies Allergy/AdvReac Type Severity Reaction Status Date / Time No Known Allergies Allergy Verified 03/22/21 15:42 <Guy Gutiérrez MD - Last Filed: 03/22/21 21:01> Review of Systems Constitutional: Constitutional: Reports no additional constitutional complaints <Guy Gutiérrez MD - Last Filed: 03/22/21 21:01> Eyes: Eyes: Reports no additional eye complaints <Guy Gutiérrez MD - Last Filed: 03/22/21 21:01> ENT: Denies dizziness <Guy Gutiérrez MD - Last Filed: 03/22/21 21:01> Cardiovascular: Cardiovascular: Reports no additional cardiovascular complaints <Guy Gutiérrez MD - Last Filed: 03/22/21 21:01> Respiratory: Respiratory: Reports as per HPI <Guy Gutiérrez MD - Last Filed: 03/22/21 21:01> Gastrointestinal: Gastrointestinal: Reports no additional gastrointestinal complaints <Guy Gutiérrez MD - Last Filed: 03/22/21 21:01> Musculoskeletal: Musculoskeletal: Reports no additional musculoskeletal complaints <Guy Gutiérrez MD - Last Filed: 03/22/21 21:01> Integumentary/Breasts: Skin/Breast: Denies rash <Guy Gutiérrez MD - Last Filed: 03/22/21 21:01> Neurologic: Reports system reviewed and no additional complaints, except as documented, Denies dizziness and Denies Sensory deficit (Neuro) <Guy Gutiérrez MD - Last Filed: 03/22/21 21:01> Psychiatric: Psychiatric: Denies anxiety <Guy Gutiérrez MD - Last Filed: 03/22/21 21:01> PMFSH Past Medical History Medical History: Medical History Below knee amputation Blind left eye CVA (cerebral vascular accident) Depression GERD (gastroesophageal reflux disease) GERD (gastroesophageal reflux disease) HLD (hyperlipidemia) HTN (hypertension) Neuropathy Obesity Right below-knee amputee Sleep apnea Type 2 diabetes mellitus Vitamin D deficiency <Guy Gutiérrez MD - Last Filed: 03/22/21 21:01> Surgical History: Surgical History History of amputation of right foot Hx of eye surgery <Guy Gutiérrez MD - Last Filed: 03/22/21 21:01> Family History Family History: Family History Mother Diabetes Father Prostate cancer Paternal Aunt Diabetes Brother No problems noted. Brother No problems noted. Brother No problems noted. Brother No problems noted. Brother No problems noted. Sister No problems noted. <Guy Gutiérrez MD - Last Filed: 03/22/21 21:01> Social History Social History: Social History Alcohol intake: never Patient Tobacco Use Status: Never used Tobacco Advance Directives: No <Guy Gutiérrez MD - Last Filed: 03/22/21 21:01> Physical Exam Vital Signs: Vital Signs: Last Vital Signs Temp 97.8 F 03/22/21 19:36 Pulse 90 03/22/21 19:36 Resp 18 03/22/21 19:36 BP 135/69 03/22/21 19:36 Pulse Ox 99 03/22/21 19:36 Body Mass Index 53.1 <Guy Gutiérrez MD - Last Filed: 03/22/21 21:01> Vital Signs: Last Vital Signs Temp 97.8 F 03/22/21 19:36 Pulse 90 03/22/21 19:36 Resp 18 03/22/21 19:36 BP 135/69 03/22/21 19:36 Pulse Ox 99 03/22/21 19:36 Body Mass Index 53.1 <Cristal Wick MD - Last Filed: 03/23/21 01:08> Const: Other: obese male chronically ill. <Guy Gutiérrez MD - Last Filed: 03/22/21 21:01> Nutritional Appearance: obese <Guy Gutiérrez MD - Last Filed: 03/22/21 21:01> Orientation/consciousness: oriented to person and patient oriented x3 <Walter Gutiérrez MD - Last Filed: 03/22/21 21:01> Limitations: no limitations <Guy Gutiérrez MD - Last Filed: 03/22/21 21:01> HENMT: Head: Yes normal to inspection <Guy Gutiérrez MD - Last Filed: 03/22/21 21:01> Ears: external ears normal <Guy Gutiérrez MD - Last Filed: 03/22/21 21:01> General nose exam: Normal external nose present <Guy Gutiérrez MD - Last F iled: 03/22/21 21:01> Mouth: Normal oral and palatal mucosa present and oropharynx normal <Guy Gutiérrez MD - Last Filed: 03/22/21 21:01> Throat: Yes posterior oropharynx normal <Guy Gutiérrez MD - Last Filed: 03/22/21 21:01> Eyes: General: appearance normal, both eyes and all related structures <Guy Gutiérrez MD - Last Filed: 03/22/21 21:01> Neck: Other: supple <Guy Gutiérrez MD - Last Filed: 03/22/21 21:01> Neck: Yes normal visual inspection <Guy Gutiérrez MD - Last Filed: 03/22/21 21:01> Chest: Chest palpation & inspection: normal inspection of the chest <Guy Gutiérrez MD - Last Filed: 03/22/21 21:01> Resp: Auscultation: clear to auscultation bilaterally <Guy Gutiérrez MD - Last Filed: 03/22/21 21:01> Cardio: Jugular venous distension: no JVD <Guy Gutiérrez MD - Last Filed: 03/22/21 21:01> Rate: regular rate <Guy Gutiérrez MD - Last Filed: 03/22/21 21:01> Rhythm: regular rhythm <Guy Gutiérrez MD - Last Filed: 03/22/21 21:01> Heart sounds: S1 normal heart sound present and S2 normal heart sound present <Guy Gutiérrez MD - Last Filed: 03/22/21 21:01> GI: Inspection: Yes normal to inspection <Guy Gutiérrez MD - Last Filed: 03/22/21 21:> Palpation (GI): Soft to palpation, nontender and No hepatosplenomegaly present <Guy Gutiérrez MD - Last Filed: 03/22/21 21:01> Auscultation: normal bowel sounds <Guy Gutiérrez MD - Last Filed: 03/22/21 21:01> : General: Yes no CVA tenderness <Guy Gutiérrez MD - Last Filed: 03/22/21 21:01> Back/Spine/Pelvis: Back: no CVA tenderness <Guy Gutiérrez MD - Last Filed: 03/22/21 21:01> Skin: Other: left great toe with slight swelling and erythema, some subungual pus, no extending erythema, second toe with similar swelling. <Guy Gutiérrez MD - Last Filed: 03/22/21 21:01> Neuro: Other: right hemiparesis is old <Guy Gutiérrez MD - Last Filed: 03/22/21 21:01> General: oriented to person and patient oriented x3 <Guy Gutiérrez MD - Last Filed: 03/22/21 21:01> Cranial nerves: Yes CN's II-XII intact bilaterally <Guy Gutiérrez MD - Last Filed: 03/22/21 21:01> Sensory Exam: No Sensory deficit (Neuro) <Guy Gutiérrez MD - Last Filed: 03/22/21 21:01> Extrem: General: Yes normal to inspection <Guy Gutiérrez MD - Last Filed: 03/22/21 21:01> Psych: Appearance: grossly normal <Guy Gutiérrez MD - Last Filed: 03/22/21 21:01> Course Reevaluation(s) Reevaluation #1: MRI staff stating the patient is too heavy for scanning and needs a GFR for scanning <Guy Gutiérrez MD - Last Filed: 03/22/21 21:01> Time: 20:43 <Guy Gutiérrez MD - Last Filed: 03/22/21 21:01> Reevaluation #2: patient with DM, neuropathy too heavy for MRI will check sed rate and CRP. Patient on a good combination for keflex and bactrim <Guy Gutiérrez MD - Last Filed: 03/22/21 21:01> Time: 21:01 <Guy Gutiérrez MD - Last Filed: 03/22/21 21:01> Reevaluation #3: On review of all investigations and on re-evaluation of the patient although there is noted elevation of the CRP/ESR this is likely demonstrative of patient's obvious infection of left toes. He has not taken any of the antibiotics since prescribed and will be provided with a dose here in the emergency room and then on review of his renal function I will switch Bactrim to doxycycline. He will be provided with a wound care referral and instructions to contact his primary care provider 1st thing in the morning for further outpati ent management. <Cristal Wick MD - Last Filed: 03/23/21 01:08> Time: 00:54 <Cristal Wick MD - Last Filed: 03/23/21 01:08> MDM - Extremity Injury (Lower) Lab Data Result diagrams: : 03/22/21 21:27 03/22/21 21:27 <Guy Gutiérrez MD - Last Filed: 03/22/21 21:01> Labs: Lab Results 03/22/21 03/22/21 03/22/21 Range/Units 21:27 21:27 21:27 WBC 8.4 (4.8-10.8) X10*3/uL RBC 3.80 L (4.60-5.80) X10*6/uL Hgb 11.0 L (14.0-18.0) g/dl Hct 33.1 L (42-52) % MCV 87.1 (80-98) fL MCH 28.9 (27.0-33.0) pg MCHC 33.2 (31.0-36.0) g/dl RDW 12.6 (11.0-16.0) % Plt Count 387 (160-400) X10*3/uL MPV 9.7 (9.4-12.4) fL Immature Gran % (Auto) 0.1 (0.0-0.4) % Neut % (Auto) 58.2 (45-73) % Lymph % (Auto) 32.5 (20-40) % [place] % (Auto) 6.2 (2-11) % Eos % (Auto) 2.6 (0-4) % Baso % (Auto) 0.4 (0-2) % Lymph # (Auto) 2.7 (1.2-4.9) X10*3/uL [place] # (Auto) 0.5 (0.1-1.2) X10*3/uL Eos # (Auto) 0.2 (0.0-0.4) X10*3/uL Baso # (Auto) 0.0 (0.0-0.2) X10*3/uL Abs Immat Gran (auto) 0.01 (0.00-0.03) X10*3/uL Absolute Neuts (auto) 4.9 (2.0-8.3) X10*3/uL Absolute Nucleated RBC 0.000 (0.0-0.012) X10*3/uL Nucleated RBC % (auto) 0.0 (0.0-0.2) /100WBC ESR 58 H (0-15) MM/HR Sodium 138 (135-145) mmol/L Potassium 4.0 (3.3-5.1) mmol/L Chloride 102 (96-108) mmol/L Carbon Dioxide 26 (22-29) mmol/L Anion Gap 14 (12-20) BUN 27 H (9-16) mg/dL Creatinine 2.27 H (0.5-1.4) mg/dL Estim Creat Clear Calc 68.5 Estimated GFR 33 Random Glucose 191 H D (60-115) mg/dL Calcium 10.4 H (8.4-10.2) mg/dL Total Bilirubin 0.3 (0.0-1.0) mg/dL AST 21 (5-37) U/L ALT 27 (0-40) U/L Alkaline Phosphatase 135 H (39-117) U/L C-Reactive Protein 1.32 H (< or = 0.50) mg/dL Total Protein 7.6 (6.5-8.0) g/dL Albumin 4.4 (3.5-5.0) g/dL /17/ Range/Units 21:27 WBC (4.8-10.8) X10*3/uL RBC (4.60-5.80) X10*6/uL Hgb (14.0-18.0) g/dl Hct (42-52) % MCV (80-98) fL MCH (27.0-33.0) pg MCHC (31.0-36.0) g/dl RDW (11.0-16.0) % Plt Count (160-400) X10*3/uL MPV (9.4-12.4) fL Immature Gran % (Auto) (0.0-0.4) % Neut % (Auto) (45-73) % Lymph % (Auto) (20-40) % [place] % (Auto) (2-11) % Eos % (Auto) (0-4) % Baso % (Auto) (0-2) % Lymph # (Auto) (1.2-4.9) X10*3/uL [place] # (Auto) (0.1-1.2) X10*3/uL Eos # (Auto) (0.0-0.4) X10*3/uL Baso # (Auto) (0.0-0.2) X10*3/uL Abs Immat Gran (auto) (0.00-0.03) X10*3/uL Absolute Neuts (auto) (2.0-8.3) X10*3/uL Absolute Nucleated RBC (0.0-0.012) X10*3/uL Nucleated RBC % (auto) (0.0-0.2) /100WBC ESR (0-15) MM/HR Sodium (135-145) mmol/L Potassium (3.3-5.1) mmol/L Chloride (96-108) mmol/L Carbon Dioxide (22-29) mmol/L Anion Gap (12-20) BUN (9-16) mg/dL Creatinine (0.5-1.4) mg/dL Estim Creat Clear Calc Estimated GFR Random Glucose (60-115) mg/dL Calcium (8.4-10.2) mg/dL Total Bilirubin (0.0-1.0) mg/dL AST (5-37) U/L ALT (0-40) U/L Alkaline Phosphatase (39-117) U/L C-Reactive Protein Cancelled (< or = 0.50) mg/dL Total Protein (6.5-8.0) g/dL Albumin (3.5-5.0) g/dL <Guy Gutiérrez MD - Last Filed: 03/22/21 21:01> Lab Results 03/22/21 03/22/21 03/22/21 Range/Units 21:27 21:27 21:27 WBC 8.4 (4.8-10.8) X10*3/uL RBC 3.80 L (4.60-5.80) X10*6/uL Hgb 11.0 L (14.0-18.0) g/dl Hct 33.1 L (42-52) % MCV 87.1 (80-98) fL MCH 28.9 (27.0-33.0) pg MCHC 33.2 (31.0-36.0) g/dl RDW 12.6 (11.0-16.0) % Plt Count 387 (160-400) X10*3/uL MPV 9.7 (9.4-12.4) fL Immature Gran % (Auto) 0.1 (0.0-0.4) % Neut % (Auto) 58.2 (45-73) % Lymph % (Auto) 32.5 (20-40) % [place] % (Auto) 6.2 (2-11) % Eos % (Auto) 2.6 (0-4) % Baso % (Auto) 0.4 (0-2) % Lymph # (Auto) 2.7 (1.2-4.9) X10*3/uL [place] # (Auto) 0.5 (0.1-1.2) X10*3/uL Eos # (Auto) 0.2 (0.0-0.4) X10*3/uL Baso # (Auto) 0.0 (0.0-0.2) X10*3/uL Abs Immat Gran (auto) 0.01 (0.00-0.03) X10*3/uL Absolute Neuts (auto) 4.9 (2.0-8.3) X10*3/uL Absolute Nucleated RBC 0.000 (0.0-0.012) X10*3/uL Nucleated RBC % (auto) 0.0 (0.0-0.2) /100WBC ESR 58 H (0-15) MM/HR Sodium 138 (135-145) mmol/L Potassium 4.0 (3.3-5.1) mmol/L Chloride 102 (96-108) mmol/L Carbon Dioxide 26 (22-29) mmol/L Anion Gap 14 (12-20) BUN 27 H (9-16) mg/dL Creatinine 2.27 H (0.5-1.4) mg/dL Estim Creat Clear Calc 68.5 Estimated GFR 33 Random Glucose 191 H D (60-115) mg/dL Calcium 10.4 H (8.4-10.2) mg/dL Total Bilirubin 0.3 (0.0-1.0) mg/dL AST 21 (5-37) U/L ALT 27 (0-40) U/L Alkaline Phosphatase 135 H (39-117) U/L C-Reactive Protein 1.32 H (< or = 0.50) mg/dL Total Protein 7.6 (6.5-8.0) g/dL Albumin 4.4 (3.5-5.0) g/dL 03/22/21 Range/Units 21:27 WBC (4.8-10.8) X10*3/uL RBC (4.60-5.80) X10*6/uL Hgb (14.0-18.0) g/dl Hct (42-52) % MCV (80-98) fL MCH (27.0-33.0) pg MCHC (31.0-36.0) g/dl RDW (11.0-16.0) % Plt Count (160-400) X10*3/uL MPV (9.4-12.4) fL Immature Gran % (Auto) (0.0-0.4) % Neut % (Auto) (45-73) % Lymph % (Auto) (20-40) % [place] % (Auto) (2-11) % Eos % (Auto) (0-4) % Baso % (Auto) (0-2) % Lymph # (Auto) (1.2-4.9) X10*3/uL [place] # (Auto) (0.1-1.2) X10*3/uL Eos # (Auto) (0.0-0.4) X10*3/uL Baso # (Auto) (0.0-0.2) X10*3/uL Abs Immat Gran (auto) (0.00-0.03) X10*3/uL Absolute Neuts (auto) (2.0-8.3) X10*3/uL Absolute Nucleated RBC (0.0-0.012) X10*3/uL Nucleated RBC % (auto) (0.0-0.2) /100WBC ESR (0-15) MM/HR Sodium (135-145) mmol/L Potassium (3.3-5.1) mmol/L Chloride (96-108) mmol/L Carbon Dioxide (22-29) mmol/L Anion Gap (12-20) BUN (9-16) mg/dL Creatinine (0.5-1.4) mg/dL Estim Creat Clear Calc Estimated GFR Random Glucose (60-115) mg/dL Calcium (8.4-10.2) mg/dL Total Bilirubin (0.0-1.0) mg/dL AST (5-37) U/L ALT (0-40) U/L Alkaline Phosphatase (39-117) U/L C-Reactive Protein Cancelled (< or = 0.50) mg/dL Total Protein (6.5-8.0) g/dL Albumin (3.5-5.0) g/dL <Cristal Wick MD - Last Filed: 03/23/21 01:08> Imaging Data left foot xray: Radiologist's impression: IMPRESSION: ? 1. There is soft tissue swelling of the left great toe. There is a small focal cortical erosion at the lateral aspect of the articular surface of the base of the distal phalanx of the left great toe. This is suspicious for acute osteomyelitis, versus alternatively a tiny osteochondral defect, and could be more fully evaluated with MRI, if clinically indicated. ? 2. At the lateral aspect of the first metatarsophalangeal joint, there is a small avulsion fragment of indeterminate chronicity. Please correlate clinically. ? 3. There is mild osteoarthritic change of the left first and fifth metatarsophalangeal joints. ? 4. The left second toe shows soft tissue swelling, without finding to suggest acute osteomyelitis. There is an old, healed fracture of the left second proximal phalanx. ? 5. There is a small bunionette is seen of the left fifth metatarsal head. <Guy Gutiérrez MD - Last Filed: 03/22/21 21:01> Discharge Plan Discharge Clinical Impression: Toe infection, Diabetes <Guy Gutiérrez MD - Last Filed: 03/22/21 21:01> Patient Disposition: Home, Self-Care <Guy Gutiérrez MD - Last Filed: 03/22/21 21:01> Instructions: Foot Care for People with Diabetes (ED), Acute Wounds (ED) <Guy Gutiérrez MD - Last Filed: 03/22/21 21:> Additional Instructions: 1. Resume all home medications as prescribed. 2. Continue with the Keflex (cephalexin) as prescribed. You are receiving the 1st dose here in the ER. 3. STOP taking Bactrim DS (sulfamethoxazole). 4. START taking doxycycline as directed on the prescription. You have received the 1st dose here in the ER. 5. You are being given a referral for the [facility] and should call them in the morning. 6. Follow-up with your primary care doctor by calling the office 1st thing in the morning for further outpatient management. Return to the ER for acute worsening of your symptoms. <Guy Gutiérrez MD - Last Filed: 03/22/21 21:01> Prescriptions: New doxycycline hyclate 100 mg capsule 100 mg PO BID 10 Days Qty: 20 RF: 0 No Action (DME) blood pressure kit-extra large Kit See Rx Instructions .ROUTE .MEDSUPPLY Qty: 1 RF: 0 (DME) latex gloves [Latex Gloves, Large] Misc See Rx Instructions .ROUTE .MEDSUPPLY Qty: 24 RF: 0 (DME) incontinence pad, liner, disp Pad See Rx Instructions .ROUTE .MEDSUPPLY Qty: 18 RF: 0 alcohol swabs Pads, Medicated 1 pad topical QID Qty: 200 RF: 5 omeprazole 40 mg capsule,delayed release(DR/EC) 40 mg PO DAILY 90 Days Qty: 90 RF: 2 (DME) pen needle, diabetic 31 gauge x 5/16 needle See Rx Instructions ea .ROUTE BID Qty: 1200 RF: 3 spironolactone 25 mg tablet 25 mg PO DAILY 90 Days Qty: 90 RF: 2 pantoprazole 40 mg tablet,delayed release (DR/EC) 40 mg PO DAILY 90 Days Qty: 90 RF: 2 duloxetine 30 mg capsule,delayed release(DR/EC) 30 mg PO BID Qty: 60 RF: 4 nifedipine 90 mg tablet extended release 24hr 90 mg PO DAILY Qty: 30 RF: 3 furosemide 40 mg tablet 40 mg PO DAILY 90 Days Qty: 90 RF: 2 cholecalciferol (vitamin D3) [Vitamin D3] 25 mcg (1,000 unit) tablet 25 mcg PO DAILY Qty: 30 RF: 2 ferrous sulfate 325 mg (65 mg iron) tablet 325 mg PO DAILY Qty: 30 RF: 3 aspirin [Adult Aspirin Regimen] 81 mg tablet,delayed release (DR/EC) 81 mg PO DAILY 90 Days Qty: 90 RF: 2 acetaminophen [Mapap Arthritis Pain] 650 mg tablet extended release 1,300 mg PO Q8H PRN (Reason: pain) 90 Days Qty: 180 RF: 3 carvedilol 25 mg tablet 25 mg PO BID Qty: 180 RF: 2 tramadol 50 mg tablet 50 mg PO BID 30 Days Qty: 60 RF: 2 insulin regular hum U-500 conc [Humulin R U-500 (Conc) Kwikpen] 500 unit/mL (3 mL) insulin pen 300 unit subcut .COMPLEX 30 Days Qty: 18 RF: 2 miscellaneous medical supply Misc 1 ea miscellaneous ONCE 28 Days Qty: 4 RF: 3 hydralazine 100 mg tablet 100 mg PO BID Qty: 60 RF: 3 gabapentin 600 mg tablet 600 mg PO BID 30 Days Qty: 60 RF: 3 (DME) blood sugar diagnostic Strip See Rx Instructions ea Not Applicable .MEDSUPPLY Qty: 100 RF: 11 (DME) FreeStyle Lite Strips Strip See Rx Instructions .Route Qty: 100 RF: 3 latanoprost 0.005 % drops 1 drp ophthalmic (eye) BEDTIME RF: 0 lisinopril 20 mg tablet 1 tab PO DAILY RF: 0 dorzolamide-timolol 22.3-6.8 mg/mL drops 1 drp ophthalmic-Right BID RF: 0 (DME) lancets 28 gauge misc See Rx Instructions ea topical QID Qty: 100 RF: 0 miscellaneous medical supply Misc 1 ea miscellaneous .once per week 28 Days Qty: 4 RF: 2 sulfamethoxazole-trimethoprim [Bactrim DS] 800-160 mg tablet 1 tab PO Q12H 10 Days Qty: 20 RF: 0 cephalexin 500 mg capsule 500 mg PO Q12H 10 Days Qty: 20 RF: 0 melatonin 10 mg tablet 10 mg PO DAILY RF: 0 atorvastatin 80 mg tablet 80 mg PO BEDTIME 30 Days Qty: 30 RF: 11 <Guy Gutiérrez MD - Last Filed: 03/22/21 21:01> Referrals: Clay Guevara PA-C [Primary Care Provider] - 1 day (Patient needs to be followed, an MRI is not possible currently due to weight restrictions, patient's Bactrim was switched to doxycycline due to the noted renal function. And he was provided with a wound care clinic referral.) [facility] [Outside] - 2 days (Please evaluate and assist and COVID management of patient's infected left great toe, 2nd and 3rd toe. He is currently on antibiotics.) <Guy Gutiérrez MD - Last Filed: 03/22/21 21:01>
[2021-03-22 21:35] LABS: Basophils Percent Auto 0.4 % (0-2); Eosinophils Absolute Auto 0.2 X10*3/uL (0.0-0.4); Eosinophils Percent Auto 2.6 % (0-4); Hematocrit 33.1 % (42-52); Imm Gran Abs Auto 0.01 X10*3/uL (0.00-0.03); Imm Gran Pct Auto 0.1 % (0.0-0.4); Lymphocytes Absolute Auto 2.7 X10*3/uL (1.2-4.9); Lymphocytes Percent Auto 32.5 % (20-40); MANUAL DIFF FLAG NO; Mean Corpuscular HGB Conc 33.2 g/dl (31.0-36.0); Mean Corpuscular Hemoglobin 28.9 pg (27.0-33.0); Mean Corpuscular Volume 87.1 fL (80-98); Mean Platelet Volume 9.7 fL (9.4-12.4); Monocytes Absolute Auto 0.5 X10*3/uL (0.1-1.2); Monocytes Percent Auto 6.2 % (2-11); Neutrophils Absolute Auto 4.9 X10*3/uL (2.0-8.3); Neutrophils Percent Auto 58.2 % (45-73); Platelet Count 387 X10*3/uL (160-400); Red Cell Distribution Width 12.6 % (11.0-16.0); White Blood Count 8.4 X10*3/uL (4.8-10.8)
[2021-03-22 22:04] LABS: Alanine Aminotransferase 27 U/L (0-40); Albumin Level 4.4 g/dL (3.5-5.0); Alkaline Phosphatase 135 U/L (39-117); Anion Gap 14 (12-20); Aspartate Amino Transferase 21 U/L (5-37); Bilirubin Total 0.3 mg/dL (0.0-1.0); Blood Urea Nitrogen 27 mg/dL (9-16); C Reactive Protein 1.32 mg/dL (< or = 0.50); Calcium 10.4 mg/dL (8.4-10.2); Carbon Dioxide 26 mmol/L (22-29); Chloride 102 mmol/L (96-108); Creatinine Clr Calc Pharmacy 68.5; Estimated Glomerular Filt Rate 33; Glucose Random 191 mg/dL (60-115); Sodium 138 mmol/L (135-145); Total Protein 7.6 g/dL (6.5-8.0)
[2021-03-22 22:29] LABS: Erythrocyte Sedimentation Rate 58 MM/HR (0-15)
[2021-03-23 02:00] VITALS: BP 137/65; PULSE 99; RESP 18; O2SAT 97
== END 2021-03-23 02:24 | disposition home or self-care (01) ==
PROVIDERS: Emergency Provider Emergency Medicine; PCP Physician Assistant
DX: L08.9 Local infection of the skin and subcutaneous tissue, unspecified (principal); E11.40 Type 2 diabetes mellitus with diabetic neuropathy, unspecified; I10 Essential (primary) hypertension; E66.01 Morbid (severe) obesity due to excess calories; E78.5 Hyperlipidemia, unspecified; Z79.4 Long term (current) use of insulin; Z79.82 Long term (current) use of aspirin; Z79.899 Other long term (current) drug therapy; Z79.02 Long term (current) use of antithrombotics/antiplatelets; Z86.73 Personal history of transient ischemic attack (TIA), and cerebral infarction without residual deficits; Z89.511 Acquired absence of right leg below knee
CPT/HCPCS: 36415; 73660; 80053; 85025; 85652; 86140; 87040; 99283; 99284

== ENCOUNTER 2021-03-29 09:19 | Outpatient (RCR) | payer OTHER, SELFPAY | END 2021-06-13 16:08 | disposition home or self-care (01) | LOC: HO.WCC 09:19 | PROVIDERS: PCP Family Medicine; Visit Provider Physician Assistant | DX: E11.621 Type 2 diabetes mellitus with foot ulcer (principal); L97.521 Non-pressure chronic ulcer of other part of left foot limited to breakdown of skin; E11.40 Type 2 diabetes mellitus with diabetic neuropathy, unspecified; E11.51 Type 2 diabetes mellitus with diabetic peripheral angiopathy without gangrene; I10 Essential (primary) hypertension; L84 Corns and callosities; R60.0 Localized edema; Z89.511 Acquired absence of right leg below knee | CPT/HCPCS: 11730; 97597; 99213 ==

== ENCOUNTER → 2021-04-18 15:19 | Outpatient (BNVA) | payer OTHER, SELFPAY | PROVIDERS: PCP Family Medicine; Visit Provider Physician Assistant ==

== ENCOUNTER 2021-05-02 13:35 | Outpatient (REF) | payer OTHER, SELFPAY ==
--- NOTE | ~2021-05-02 | US_ITS ---
EXAMINATION: US LEFT LOWER EXTREMITY DUPLEX CLINICAL INFORMATION: Nonhealing foot ulcer. TECHNIQUE: Real-time ultrasound and Doppler techniques (integrating B-mode 2-D vascular images, Doppler spectral analysis and color flow Doppler imaging) were utilized to interrogate the lower extremities. COMPARISON: None. FINDINGS: LEFT LEG: Common femoral artery: 165 cm/s, biphasic Profunda femoris artery: 124 cm/s, monophasic Superficial femoral artery (proximal): 111 cm/s, biphasic Superficial femoral artery (mid): 110 cm/s, biphasic Superficial femoral artery (distal): 90.3 cm/s, Triphasic Popliteal artery: 102 cm/s, biphasic Posterior tibial artery: 92 cm/s, monophasic US/US arterial duplex LE LT IMPRESSION: No evidence of hemodynamically significant arterial disease involving the left lower extremity.
== END 2021-05-02 13:36 | disposition home or self-care (01) ==
LOC: HO.US 13:35
PROVIDERS: PCP Physician Assistant; Visit Provider Physician Assistant
DX: E11.621 Type 2 diabetes mellitus with foot ulcer (principal)
CPT/HCPCS: 93926

== ENCOUNTER → 2021-05-04 13:01 | Outpatient (REF) | payer OTHER, SELFPAY | LOC: HO.SL 13:01 | PROVIDERS: Visit Provider Surgery | DX: G47.19 Other hypersomnia (principal); G47.33 Obstructive sleep apnea (adult) (pediatric) | CPT/HCPCS: 95806 ==

== ENCOUNTER → 2021-05-26 14:11 | Outpatient (BNVA) | payer OTHER, SELFPAY | PROVIDERS: PCP Physician Assistant; Visit Provider Internal Medicine | DX: G47.33 Obstructive sleep apnea (adult) (pediatric) (principal); E66.01 Morbid (severe) obesity due to excess calories | CPT/HCPCS: 99202 ==

== ENCOUNTER → 2021-06-10 14:41 | Outpatient (BNVA) | payer OTHER, SELFPAY | PROVIDERS: PCP Physician Assistant; Referring Provider Physician Assistant; Visit Provider Physician Assistant ==

== ENCOUNTER → 2021-06-16 08:01 | Outpatient (BNVA) | payer OTHER, SELFPAY | PROVIDERS: PCP Physician Assistant; Visit Provider Dietitian, Registered | DX: E66.01 Morbid (severe) obesity due to excess calories (principal) | CPT/HCPCS: 97803 ==

== ENCOUNTER 2021-06-20 10:17 | Outpatient (REF) | payer OTHER, SELFPAY ==
[2021-06-20 12:31] LABS: Estimated Average Glucose 209 mg/dL; Hemoglobin A1c % 8.9 %
[2021-06-20 12:52] LABS: Alanine Aminotransferase 28 U/L (0-40); Albumin Level 4.4 g/dL (3.5-5.0); Alkaline Phosphatase 117 U/L (39-117); Anion Gap 16 (12-20); Aspartate Amino Transferase 22 U/L (5-37); Bilirubin Total 0.5 mg/dL (0.0-1.0); Blood Urea Nitrogen 36 mg/dL (9-16); Calcium 9.4 mg/dL (8.4-10.2); Carbon Dioxide 24 mmol/L (22-29); Chloride 104 mmol/L (96-108); Cholesterol 148 mg/dL; Estimated Glomerular Filt Rate 43; Glucose Random 153 mg/dL (60-115); HDL Cholesterol 24 mg/dL; LDL Cholesterol Calculated 89 mg/dl; Sodium 139 mmol/L (135-145); Total Protein 7.6 g/dL (6.5-8.0); Triglycerides 175 mg/dL
[2021-06-20 13:23] LABS: Creatinine Urine 119.28 mg/dL
[2021-06-20 14:11] LABS: Microalbum/Creatinine Ratio Ur 413.3 ug/mg cr
[2021-06-22 03:56] LABS: LDL Cholesterol Direct 96 mg/dL (<100)
== END 2021-06-20 10:18 | disposition home or self-care (01) ==
LOC: HO.LAB 10:17
PROVIDERS: Absent Provider Internal Medicine; PCP Physician Assistant; Referring Provider Physician Assistant; Visit Provider Surgery
DX: E66.01 Morbid (severe) obesity due to excess calories (principal); Z68.42 Body mass index [BMI] 45.0-49.9, adult; E11.59 Type 2 diabetes mellitus with other circulatory complications; Z79.4 Long term (current) use of insulin; Z71.3 Dietary counseling and surveillance
CPT/HCPCS: 36415; 80053; 80061; 82043; 83036; 83721; 99212

== ENCOUNTER → 2021-07-13 15:11 | Outpatient (BNVA) | payer OTHER, SELFPAY | PROVIDERS: PCP Physician Assistant; Referring Provider Physician Assistant; Visit Provider Physician Assistant | DX: E66.01 Morbid (severe) obesity due to excess calories (principal); E78.5 Hyperlipidemia, unspecified; G47.30 Sleep apnea, unspecified; E11.22 Type 2 diabetes mellitus with diabetic chronic kidney disease; I12.9 Hypertensive chronic kidney disease with stage 1 through stage 4 chronic kidney disease, or unspecified chronic kidney disease; N18.30 Chronic kidney disease, stage 3 unspecified; K21.9 Gastro-esophageal reflux disease without esophagitis; Z86.73 Personal history of transient ischemic attack (TIA), and cerebral infarction without residual deficits | CPT/HCPCS: 99212 ==

== ENCOUNTER → 2021-07-15 14:03 | Outpatient (BNVA) | payer OTHER, SELFPAY | PROVIDERS: PCP Physician Assistant; Referring Provider Physician Assistant; Visit Provider Nurse Practitioner Family | DX: Z01.810 Encounter for preprocedural cardiovascular examination (principal); I10 Essential (primary) hypertension; E66.01 Morbid (severe) obesity due to excess calories; Z89.611 Acquired absence of right leg above knee; I69.351 Hemiplegia and hemiparesis following cerebral infarction affecting right dominant side; R94.39 Abnormal result of other cardiovascular function study | CPT/HCPCS: 93005; 99212 ==

== ENCOUNTER → 2021-08-15 11:35 | Outpatient (BNVA) | payer OTHER, SELFPAY | PROVIDERS: PCP Physician Assistant; Visit Provider Internal Medicine | DX: E11.59 Type 2 diabetes mellitus with other circulatory complications (principal); E78.5 Hyperlipidemia, unspecified; E55.9 Vitamin D deficiency, unspecified; E66.09 Other obesity due to excess calories; I10 Essential (primary) hypertension; Z79.4 Long term (current) use of insulin | CPT/HCPCS: 82947; 99212 ==

== ENCOUNTER → 2021-08-18 16:08 | Outpatient (BNVA) | payer OTHER, SELFPAY | PROVIDERS: PCP Physician Assistant; Referring Provider Physician Assistant; Visit Provider Physician Assistant | DX: E66.01 Morbid (severe) obesity due to excess calories (principal); F32.9 Major depressive disorder, single episode, unspecified; S88.911A Complete traumatic amputation of right lower leg, level unspecified, initial encounter; Z91.19 Patient's noncompliance with other medical treatment and regimen; Z68.43 Body mass index [BMI] 50.0-59.9, adult | CPT/HCPCS: 99212 ==

== ENCOUNTER → 2021-08-24 15:55 | Outpatient (BNVA) | payer OTHER, SELFPAY | PROVIDERS: PCP Physician Assistant; Referring Provider Physician Assistant; Visit Provider Dietitian, Registered | DX: E66.01 Morbid (severe) obesity due to excess calories (principal); E11.9 Type 2 diabetes mellitus without complications | CPT/HCPCS: 97803 ==

== ENCOUNTER → 2021-09-06 14:07 | Outpatient (BNVA) | payer OTHER, SELFPAY | PROVIDERS: PCP Physician Assistant; Visit Provider Internal Medicine | DX: G47.33 Obstructive sleep apnea (adult) (pediatric) (principal); E66.01 Morbid (severe) obesity due to excess calories | CPT/HCPCS: 99212 ==

== ENCOUNTER → 2021-12-19 09:23 | Outpatient (BNVA) | payer OTHER, SELFPAY | PROVIDERS: PCP Physician Assistant; Visit Provider Internal Medicine | DX: E11.59 Type 2 diabetes mellitus with other circulatory complications (principal); E78.5 Hyperlipidemia, unspecified; E55.9 Vitamin D deficiency, unspecified; E66.09 Other obesity due to excess calories; I10 Essential (primary) hypertension; Z79.4 Long term (current) use of insulin | CPT/HCPCS: 99212 ==

== ENCOUNTER 2022-01-25 15:10 | Outpatient (REF) | payer OTHER, SELFPAY ==
[2022-01-25 16:22] LABS: Estimated Average Glucose 183 mg/dL
[2022-01-25 16:27] LABS: Alanine Aminotransferase 32 U/L (0-40); Albumin Level 4.1 g/dL (3.5-5.0); Alkaline Phosphatase 107 U/L (39-117); Anion Gap 11 (12-20); Aspartate Amino Transferase 26 U/L (5-37); Bilirubin Total 0.5 mg/dL (0.0-1.0); Blood Urea Nitrogen 30 mg/dL (9-16); Carbon Dioxide 28 mmol/L (22-29); Chloride 106 mmol/L (96-108); Cholesterol 134 mg/dL; Estimated Glomerular Filt Rate 37; Glucose Random 196 mg/dL (60-115); HDL Cholesterol 21 mg/dL; LDL Cholesterol Calculated 76 mg/dl; Sodium 140 mmol/L (135-145); Total Protein 7.1 g/dL (6.5-8.0); Triglycerides 189 mg/dL
[2022-01-25 16:46] LABS: Vitamin D 25-OH Total 22.7 ng/mL (>30)
[2022-01-25 17:39] LABS: Microalbum/Creatinine Ratio Ur 329.5 ug/mg cr
[2022-01-26 18:11] LABS: LDL Cholesterol Direct 79 mg/dL (<100)
== END 2022-01-25 15:11 | disposition home or self-care (01) ==
LOC: HO.LAB 15:10
PROVIDERS: PCP Physician Assistant; Visit Provider Internal Medicine
DX: E11.8 Type 2 diabetes mellitus with unspecified complications (principal); E55.9 Vitamin D deficiency, unspecified
CPT/HCPCS: 36415; 80053; 80061; 82043; 82306; 83036; 83721

== ENCOUNTER 2022-02-05 16:17 | Emergency (ER) | payer OTHER, SELFPAY ==
[2022-02-05 16:28] VITALS: BP 156/86; PULSE 90; RESP 18; TEMP 36.6; O2SAT 99; BMI 48.7
--- NOTE | 2022-02-05 21:36 | ED_ITS ---
HPI - General Adult General Chief complaint: Wound/Laceration Stated complaint: diabetic sore on heal Time Seen by Provider: 02/05/22 21:36 Source: patient Limitations: no limitations History of Present Illness HPI narrative: this is a 36-year-old male with history of type 2 diabetes as well as morbid obesity, who has history also of right [id number] amputation, who notes that a chronic ulcer on his left heel today seemed to have some liquid drainage that smelled bad. The patient does have a visiting nurse who comes once a week on . She had put a new bandage on it few days ago. Patient denies any fever. He states he wanted to make sure to get it checked before got too bad. Related Data Home Medications Medication Instructions Recorded Confirmed lancets 28 gauge #100 ea 06/21/20 12/19/21 dorzolamide 22.3 mg-timolol 6.8 1 drp ophthalmic-Right BID 12/23/20 12/19/21 mg/mL eye drops latanoprost 0.005 % eye drops 1 drp ophthalmic (eye) BEDTIME 12/23/20 12/19/21 lisinopril 20 mg tablet 1 tab PO DAILY 12/23/20 12/19/21 insulin regular hum U-500 conc 80 unit subcut BID 12/19/21 12/19/21 (Humulin R U-500 (Conc) Insulin Kwikpen) Previous Rx's Medication Instructions Recorded blood pressure kit-extra large #1 ea 05/17/20 incontinence pad, liner, disp #18 ea 06/08/20 miscellaneous medical supply 1 ea miscellaneous ONCE 4 weeks #4 03/09/21 ea blood sugar diagnostic #100 ea 03/18/21 blood sugar diagnostic (FreeStyle #100 ea 03/21/21 Lite Strips) miscellaneous medical supply 1 ea miscellaneous .once per week 05/23/21 4 weeks #4 ea thiamine HCl (vitamin B1) 100 mg 100 mg PO DAILY #30 tabs 06/20/21 tablet spironolactone 25 mg tablet 25 mg PO DAILY 90 days #90 tabs 06/21/21 pantoprazole 40 mg tablet,delayed 80 mg PO DAILY 90 days #180 tabs 06/27/21 release omeprazole 40 mg capsule,delayed 40 mg PO DAILY 90 days #90 caps 07/31/21 release latex gloves (Latex Gloves, Large) #1,000 ea 08/29/21 miscellaneous medical supply 1 ea miscellaneous DAILY 90 days 08/29/21 #1,000 ea nifedipine 90 mg tablet,extended 90 mg PO DAILY #30 tabs 08/30/21 release 24 hr cholecalciferol (vitamin D3) 25 25 mcg PO DAILY #30 tabs 09/19/21 mcg (1,000 unit) tablet (Vitamin D3) duloxetine 30 mg capsule,delayed 30 mg PO BID #60 caps 09/19/21 release famotidine 20 mg tablet 20 mg PO DAILY 30 days #30 tabs 09/19/21 alcohol swabs 1 pad topical QID for diabetes 10/17/21 mellitus #200 pad ferrous sulfate 325 mg (65 mg 325 mg PO DAILY #30 tabs 10/17/21 iron) tablet carvedilol 25 mg tablet 25 mg PO BID #180 tabs 10/19/21 clotrimazole 1 % topical cream 1 appl topical DAILY 30 days #45 10/26/21 grams atorvastatin 80 mg tablet 80 mg PO BEDTIME 30 days #30 tabs 11/01/21 melatonin 10 mg tablet 10 mg PO DAILY #90 tabs 11/01/21 pen needle, diabetic 31 gauge x #1,200 ea 11/01/21 5/ gabapentin 600 mg tablet 600 mg PO BID 30 days #60 tabs 11/23/21 lidocaine 5 % topical patch 1 patch topical DAILY 30 days #30 11/28/21 ea tramadol 50 mg tablet 50 mg PO TID PRN pain 30 days #90 12/21/21 tabs acetaminophen 650 mg 1,300 mg PO Q8H PRN pain 90 days 12/30/21 tablet,extended release (Mapap #180 tabs Arthritis Pain) hydralazine 100 mg tablet 100 mg PO BID #60 tabs 01/16/22 amoxicillin 875 mg-potassium 1 tab PO BID #14 tabs 02/05/22 clavulanate 125 mg tablet aspirin 81 mg tablet,delayed 81 mg PO DAILY 90 days #90 tabs 02/05/22 release (Adult Aspirin Regimen) Allergies Allergy/AdvReac Type Severity Reaction Status Date / Time sulfamethoxazole AdvReac Intermediate Elevated Verified 02/05/22 16:28 [From Bactrim] renal functions trimethoprim [From Bactrim] AdvReac Intermediate Elevated Verified 02/05/22 16:28 renal functions Review of Systems Review of Systems: As per HPI [facility] Past Medical History Medical History Below knee amputation Blind left eye CVA (cerebral vascular accident) Depression GERD (gastroesophageal reflux disease) GERD (gastroesophageal reflux disease) HLD (hyperlipidemia) HTN (hypertension) Morbid obesity Neuropathy Obesity NOLAN (obstructive sleep apnea) Right below-knee amputee Sleep apnea Type 2 diabetes mellitus Vitamin D deficiency Surgical History History of amputation of right foot Hx of eye surgery Family History Family History Mother Diabetes Father Prostate cancer Paternal Aunt Diabetes Brother No problems noted. Brother No problems noted. Brother No problems noted. Brother No problems noted. Brother No problems noted. Sister No problems noted. Social History Social History Housing: Apartment Alcohol intake: never Patient Tobacco Use Status: Never used Tobacco Advance Directives: No Advance Directives Information Provided: No Current occupational status: disabled Physical Exam ED Vital Signs: Vital Signs - 24 hr 02/05/22 16:28 Temperature 97.8 F Pulse Rate 90 Respiratory Rate 18 Blood Pressure 156/86 H Pulse Oximetry 99 Oxygen Delivery Method Room Air BMI result Body Mass Index 48.7 Const Other: obese, not ill appearing General: no acute distress Orientation/consciousness: patient oriented x3 HENMT Head: Yes normal to inspection General nose exam: Normal external nose present Mouth: moist mucous membranes Throat: Yes posterior oropharynx normal, Yes tonsils normal and Yes uvula midline Eyes Eyelids: Yes eyelids normal Conjunctivae: conjunctivae normal Pupils: Equal, round and reactive pupils present Neck Neck: Yes supple Resp Effort & Inspection: normal respiratory effort Auscultation: clear to auscultation bilaterally Cardio Rate: regular rate Rhythm: regular rhythm Heart sounds: S1 normal heart sound present, S2 normal heart sound present, no gallops, no murmurs and no rubs GI Inspection: No distended Palpation (GI): Soft to palpation and nontender Auscultation: normal bowel sounds Skin Other: left heel with what appears to be an old ulcer along the lateral posterior aspect, which has healed, with healthy pink tissue. There is some skin that has peeled along the inferior aspect but there is no localized erythema. There is no drainage from the wound. Superior to the wound there is an area of more darker coloration, but it is not frankly erythematous and there is no fluctuance or crepitus, no pus can be expressed from the adjacent corner. General skin exam: other (Warm and dry) Neuro General: patient oriented x3 and CN's II-XI intact bilaterally Cranial nerves: Yes Equal, round and reactive pupils present Extrem General: Yes no pedal edema Psych Affect: normal affect Attitude: cooperative Medical Decision Making MDM Narrative Medical decision making narrative: Obese, diabetic patient concerned about a left heel ulcer. There is evidence of a previously healed wound that overall appears well. Slight discoloration and a proximal aspect, but no drainage, no erythema or swelling. Will start the patient on Augmentin for 7 days, recommend continued wound care , recheck by visiting nurse in 4 days Discharge Plan Discharge Clinical Impression: Diabetic foot ulcer Patient Disposition: Home, Self-Care Instructions: Diabetic Foot Ulcers (ED) Additional Instructions: try to soak the wound twice a day for 10 minutes in warm water, then pat dry, apply antibiotic ointment and a new bandage. Take the Augmentin as prescribed. Return for any new or worsened symptoms. Make sure your visiting nurse assesses the wound again when she comes on . Prescriptions: New amoxicillin-pot clavulanate 875-125 mg tablet 1 tab PO BID Qty: 14 0RF No Action (DME) blood pressure kit-extra large Kit See Rx Instructions .ROUTE .MEDSUPPLY Qty: 1 0RF Rx Instructions: As directed (DME) incontinence pad, liner, disp Pad See Rx Instructions .ROUTE .MEDSUPPLY Qty: 18 0RF Rx Instructions: As directed miscellaneous medical supply Misc 1 ea miscellaneous ONCE 28 Days Qty: 4 3RF (DME) blood sugar diagnostic Strip See Rx Instructions Not Applicable .MEDSUPPLY Qty: 100 11RF Rx Instructions: 4x daily (DME) FreeStyle Lite Strips Strip See Rx Instructions .Route Qty: 100 3RF Rx Instructions: As directed miscellaneous medical supply [facility] [place] 1 ea miscellaneous .once per week 28 Days Qty: 4 2RF spironolactone 25 mg tablet 25 mg PO DAILY 90 Days Qty: 90 2RF pantoprazole 40 mg tablet,delayed release (DR/EC) 80 mg PO DAILY 90 Days Qty: 180 2RF omeprazole 40 mg capsule,delayed release(DR/EC) 40 mg PO DAILY 90 Days Qty: 90 2RF (DME) latex gloves [Latex Gloves, Large] Misc See Rx Instructions .ROUTE .MEDSUPPLY Qty: 1000 3RF Rx Instructions: As directed miscellaneous medical supply Misc 1 ea miscellaneous DAILY 90 Days Qty: 1000 3RF nifedipine 90 mg tablet extended release 24hr 90 mg PO DAILY Qty: 30 3RF famotidine 20 mg tablet 20 mg PO DAILY 30 Days Qty: 30 4RF cholecalciferol (vitamin D3) [Vitamin D3] 25 mcg (1,000 unit) tablet 25 mcg PO DAILY Qty: 30 4RF duloxetine 30 mg capsule,delayed release(DR/EC) 30 mg PO BID Qty: 60 4RF alcohol swabs Pads, Medicated 1 pad topical QID Qty: 200 5RF ferrous sulfate 325 mg (65 mg iron) tablet 325 mg PO DAILY Qty: 30 3RF carvedilol 25 mg tablet 25 mg PO BID Qty: 180 2RF atorvastatin 80 mg tablet 80 mg PO BEDTIME 30 Days Qty: 30 11RF melatonin 10 mg tablet 10 mg PO DAILY Qty: 90 1RF (DME) pen needle, diabetic 31 gauge x 5/16 needle See Rx Instructions .ROUTE BID Qty: 1200 3RF Rx Instructions: As directed gabapentin 600 mg tablet 600 mg PO BID 30 Days Qty: 60 3RF lidocaine 5 % adhesive patch,medicated 1 patch topical DAILY 30 Days Qty: 30 3RF Rx Instructions: leave on most painful area for up to 12 hrs tramadol 50 mg tablet 50 mg PO TID PRN (Reason: pain) 30 Days Qty: 90 1RF acetaminophen [Mapap Arthritis Pain] 650 mg tablet extended release 1,300 mg PO Q8H PRN (Reason: pain) 90 Days Qty: 180 3RF hydralazine 100 mg tablet 100 mg PO BID Qty: 60 3RF aspirin [Adult Aspirin Regimen] 81 mg tablet,delayed release (DR/EC) 81 mg PO DAILY 90 Days Qty: 90 2RF latanoprost 0.005 % drops 1 drp ophthalmic (eye) BEDTIME lisinopril 20 mg tablet 1 tab PO DAILY dorzolamide-timolol 22.3-6.8 mg/mL drops 1 drp ophthalmic-Right BID (DME) lancets 28 gauge misc See Rx Instructions topical QID Qty: 100 Rx Instructions: As directed clotrimazole 1 % cream 1 appl topical DAILY 30 Days Qty: 45 2RF thiamine HCl (vitamin B1) 100 mg tablet 100 mg PO DAILY Qty: 30 2RF Humulin R U-500 (Conc) Kwikpen 500 unit/mL (3 mL) insulin pen 80 unit subcut BID Interventions: ED Discharge Assessment Last Done: 02/05/22 22:47 Discharge Date/Time: 02/05/22 22:49
[2022-02-05] MEDS: Amoxicillin/Potassium Clav 875 MG TABLET PO (22:33)
== END 2022-02-05 22:49 | disposition home or self-care (01) ==
PROVIDERS: Emergency Provider Emergency Medicine; PCP Physician Assistant
DX: E11.621 Type 2 diabetes mellitus with foot ulcer (principal); Z79.899 Other long term (current) drug therapy
CPT/HCPCS: 99282; 99283

== ENCOUNTER → 2022-02-20 11:44 | Outpatient (BNVA) | payer OTHER, SELFPAY | PROVIDERS: PCP Physician Assistant; Visit Provider Internal Medicine | DX: E11.59 Type 2 diabetes mellitus with other circulatory complications (principal); E78.5 Hyperlipidemia, unspecified; E55.9 Vitamin D deficiency, unspecified; E66.01 Morbid (severe) obesity due to excess calories; I10 Essential (primary) hypertension; Z79.4 Long term (current) use of insulin | CPT/HCPCS: 82947; 99212 ==

== ENCOUNTER 2022-02-24 14:05 | Outpatient (RCR) | payer OTHER, SELFPAY | END 2022-05-04 11:09 | disposition home or self-care (01) | LOC: HO.WCC 14:05 | PROVIDERS: PCP Physician Assistant; Visit Provider Physician Assistant | DX: E11.621 Type 2 diabetes mellitus with foot ulcer (principal); L97.422 Non-pressure chronic ulcer of left heel and midfoot with fat layer exposed; Q82.0 Hereditary lymphedema; E11.40 Type 2 diabetes mellitus with diabetic neuropathy, unspecified; E11.22 Type 2 diabetes mellitus with diabetic chronic kidney disease; I12.9 Hypertensive chronic kidney disease with stage 1 through stage 4 chronic kidney disease, or unspecified chronic kidney disease; N18.9 Chronic kidney disease, unspecified; E66.9 Obesity, unspecified; Z89.511 Acquired absence of right leg below knee; Z79.4 Long term (current) use of insulin; Z86.73 Personal history of transient ischemic attack (TIA), and cerebral infarction without residual deficits | CPT/HCPCS: 11042 ==

== ENCOUNTER 2022-08-14 14:28 | Outpatient (REF) | payer OTHER, SELFPAY ==
[2022-08-14 16:07] LABS: Estimated Average Glucose 169 mg/dL; Hemoglobin A1c % 7.5 %
[2022-08-14 16:23] LABS: Alanine Aminotransferase 24 U/L (0-40); Albumin Level 4.3 g/dL (3.5-5.0); Alkaline Phosphatase 149 U/L (39-117); Anion Gap 12 (12-20); Aspartate Amino Transferase 19 U/L (5-37); Bilirubin Total 0.5 mg/dL (0.0-1.0); Blood Urea Nitrogen 32 mg/dL (9-16); Calcium 9.6 mg/dL (8.4-10.2); Carbon Dioxide 27 mmol/L (22-29); Chloride 107 mmol/L (96-108); Cholesterol 124 mg/dL; Estimated Glomerular Filt Rate 49; Glucose Random 122 mg/dL (60-115); HDL Cholesterol 24 mg/dL; LDL Cholesterol Calculated 75 mg/dl; Potassium 4.2 mmol/L (3.3-5.1); Sodium 142 mmol/L (135-145); Total Protein 7.4 g/dL (6.5-8.0); Triglycerides 128 mg/dL
[2022-08-14 16:41] LABS: Vitamin D 25-OH Total 26.6 ng/mL (>30)
[2022-08-14 18:09] LABS: Creatinine Urine 62.09 mg/dL; Microalbum/Creatinine Ratio Ur 431.6 ug/mg cr
[2022-08-16 04:13] LABS: LDL Cholesterol Direct 79 mg/dL (<100)
== END 2022-08-14 14:29 | disposition home or self-care (01) ==
LOC: HO.LAB 14:28
PROVIDERS: Absent Provider Internal Medicine; PCP Physician Assistant; Visit Provider Registered Nurse Diabetes Educator
DX: E11.59 Type 2 diabetes mellitus with other circulatory complications (principal); E66.09 Other obesity due to excess calories; E78.5 Hyperlipidemia, unspecified; I10 Essential (primary) hypertension; E55.9 Vitamin D deficiency, unspecified; Z71.89 Other specified counseling; Z71.3 Dietary counseling and surveillance; Z79.4 Long term (current) use of insulin; Z79.899 Other long term (current) drug therapy
CPT/HCPCS: 36415; 80053; 80061; 82043; 82306; 82947; 83036; 83721; 99211; 99212

== ENCOUNTER → 2022-12-12 08:25 | Outpatient (BNVA) | payer OTHER, SELFPAY | PROVIDERS: PCP Physician Assistant; Visit Provider Registered Nurse Diabetes Educator | DX: E11.8 Type 2 diabetes mellitus with unspecified complications (principal); Z79.4 Long term (current) use of insulin; Z79.84 Long term (current) use of oral hypoglycemic drugs | CPT/HCPCS: 99211 ==

== ENCOUNTER → 2022-12-20 14:56 | Outpatient (BNVA) | payer OTHER, SELFPAY | PROVIDERS: PCP Physician Assistant; Visit Provider Internal Medicine | DX: E11.59 Type 2 diabetes mellitus with other circulatory complications (principal); E78.5 Hyperlipidemia, unspecified; E55.9 Vitamin D deficiency, unspecified; E66.09 Other obesity due to excess calories; I10 Essential (primary) hypertension; Z79.4 Long term (current) use of insulin | CPT/HCPCS: 82947; 83036; 99212 ==

== ENCOUNTER 2023-02-15 15:10 | Outpatient (AMB) | payer OTHER, SELFPAY ==
[2023-02-15 15:14] VITALS: BP 122/60; PULSE 101; O2SAT 98
--- NOTE | 2023-02-15 15:14 | A.OFFPC_ITS ---
Vital Signs 02/15/23 15:14 Height 5 ft 9 in BMI Reason not done Patient refused/unable BP 122/60 Blood Pressure Location Lt brachial Position Sitting Pulse 101 H Pulse Source Pulse Oximeter Temp Source Skin Pulse Oximetry (%) 98 Oxygen Delivery Method Room Air Intake Visit Reasons: PE Intake Note: Patient is here today for a physical. 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 Allergies sulfamethoxazole [From Bactrim] Adverse Reaction (Intermediate, Verified 02/15/23 15:23) Elevated renal functions trimethoprim [From Bactrim] Adverse Reaction (Intermediate, Verified 02/15/23 15:23) Elevated renal functions Medication List - Last Reconciled 02/15/23 by [place] acetaminophen ER (Mapap Arthritis Pain) 1,300 mg (2 x 650 mg) PO Q8H PRN 90 days alcohol swabs 1 pad topical QID aspirin (Adult Aspirin Regimen) 81 mg PO DAILY 90 days atorvastatin 80 mg PO BEDTIME 30 days blood pressure kit-extra large As directed blood sugar diagnostic (FreeStyle Lite Strips) As directed blood sugar diagnostic 4x daily carvedilol 25 mg PO BID cholecalciferol (vitamin D3) (Vitamin D3) 25 mcg PO DAILY duloxetine 30 mg PO BID famotidine 20 mg PO DAILY 30 days ferrous sulfate 325 mg PO DAILY furosemide 40 mg (2 x 20 mg) PO DAILY 30 days gabapentin 800 mg PO BID 30 days hydralazine 100 mg PO BID incontinence pad, liner, disp As directed insulin regular hum U-500 conc (Humulin R U-500 (Conc) Insulin Kwikpen) 40 units (0.08 mL) subcut TID 30 days lancets As directed latex gloves (Latex Gloves, Large) As directed lisinopril 1 tab PO DAILY melatonin 10 mg PO DAILY miscellaneous medical supply 1 ea miscellaneous ONCE 4 weeks miscellaneous medical supply 1 ea miscellaneous .once per week 4 weeks miscellaneous medical supply 1 ea miscellaneous DAILY 90 days nifedipine ER 90 mg PO DAILY 90 days omeprazole 40 mg PO DAILY 90 days pantoprazole 80 mg (2 x 40 mg) PO DAILY 90 days pen needle, diabetic As directed semaglutide 1 mg (0.75 mL) subcut QWEEK 30 days spironolactone 25 mg PO DAILY 90 days thiamine HCl (vitamin B1) 100 mg PO DAILY tramadol 50 mg PO TID PRN 30 days Tobacco use date assessed: 02/15/23 Dental Screening Dental Screen Date: 02/15/23 Did you have a dental visit in the last 12 months?: Yes Did you have a dental problem in the last 6 months where you did not have access to dental care?: No Was dental information given to patient?: Patient has dentist HPI PE HPI Details Patient is a 37-year-old male presents today for physical exam. Patient of RONY Guevara. medical history significant for hyperlipidemia, obesity, sleep apnea-on CPAP-followed by Dr. Anderson, history of CVA, depression, neuropathy, amputated right leg-phantom pain-stable with gabapentin, hypertension, GERD, diabetes type 2, CKD stage 3-followed by nephrology-blood pressure medications are managed by Nephrology as well, lower extremity edema. Patient reports that he is compliant with medications and denies side effects. He is also followed by Endocrinology for diabetes. Patient reports that he will call weight management to see them again. Patient reports that he has prosthesis for his right leg although is not working well, patient reports that he will start seeing weight management and then when he loses weight he will try to obtain new prosthesis for his right leg. Patient is due for diabetic eye exam, will refer, reports blind in left eye. Patient has declined tetanus vaccine. Patient is in a wheelchair. Patient denies shortness of breath or chest pain. [facility] Medical History Below knee amputation Blind left eye CVA (cerebral vascular accident) Depression GERD (gastroesophageal reflux disease) GERD (gastroesophageal reflux disease) HLD (hyperlipidemia) HTN (hypertension) Morbid obesity Neuropathy Obesity NOLAN (obstructive sleep apnea) Right below-knee amputee Sleep apnea Type 2 diabetes mellitus Vitamin D deficiency Surgical History History of amputation of right foot Hx of eye surgery Family History Mother Diabetes Father Prostate cancer Paternal Aunt Diabetes Brother No problems noted. Brother No problems noted. Brother No problems noted. Brother No problems noted. Brother No problems noted. Sister No problems noted. Social History Housing: Apartment Alcohol intake: never Patient Tobacco Use Status: Never used Tobacco e-Cigarette/Vaping Use: Never Used Second Hand Smoke Exposure: No service: No Current occupational status: disabled Cognitive needs: Yes (walk, wheelchair) Hearing needs: No Vision needs: Yes (glasses) Questionnaire PHQ-9 Over the last 2 weeks, how often have you been bothered by any of the following problems? 1. Little interest or pleasure in doing things: not at all 2. Feeling down, depressed, or hopeless: not at all 3. Trouble falling or staying asleep, or sleeping too much: not at all 4. Feeling tired or having little energy: not at all 5. Poor appetite or overeating: not at all 6. Feeling bad about yourself - or that you are a failure or have let yourself or your family down: not at all 7. Trouble concentrating on things, such as reading the newspaper or watching television: not at all 8. Moving or speaking so slowly that other people could have noticed. Or the op posite - being so fidgety or restless that you have been moving around a lot more than usual: not at all 9. Thoughts that you would be better off or of hurting yourself in some way: not at all Total score: 0 Depression Screening Interpretation: Negative 82511 - PHQ-9 Billing: Yes Source: Developed by Drs. Flaco Tovar, Muna Baumann, Satnam Pendleton and colleagues, with an educational carmelo from [employer]. Thrive Questionnaire Date Thrive assessed: 01/03/23 AUDIT C Alcohol Use Questionnaire (AUDIT-C) 1. How often do you have a drink containing alcohol?: Never Total Score: 0 Score Reviewed/Action Taken: No KAMALA-7 AMB Questionnaire KAMALA-7 Date KAMALA - 7 assessed: 02/15/23 Feeling nervous, anxious, or on edge: 0 = Not at all Not being able to stop or control worryin = Not at all Worrying too much about different things: 0 = Not at all Trouble relaxin = Not at all Being so restless that it is hard to sit still: 0 = Not at all Becoming easily annoyed or irritable: 0 = Not at all Feeling afraid as if something awful might happen: 0 = Not at all Total KAMALA-7 score (0-4 normal; 5-9 mild; 10-14 moderate; 15-21 severe): 0 Source: Developed by Drs. Flaco Tovar, Muna Baumann, Satnam Pendleton and colleagues, with an educational carmelo from [employer]. KAMALA-7 Assessment Billing KAMALA-7 Assessment Tool: KAMALA-7 Assessment 30517 Review of Systems Const Denies body aches, Denies chills, Denies fever(s) and Denies headache(s) Eyes Reports as per HPI ENT Denies dizziness, Denies otalgia, Denies headache(s), Denies nasal discharge, Denies sinus pain and Denies sore throat Card Denies chest pain, Denies edema, Reports leg edema (Left), Denies lightheadedness and Denies dyspnea Resp Denies cough and Denies dyspnea GI Denies constipation, Denies diarrhea, Denies nausea and Denies vomiting Denies dysuria Musc Details: Phantom pain right leg - s/p amputation Denies myalgias Skin/Breast Denies rash Neuro Denies dizziness and Denies headache(s) Physical exam (Primary Care) Vital Signs: Last Vital Signs Pulse 101 H 02/15/23 15:14 BP 122/60 02/15/23 15:14 Pulse Ox 98 02/15/23 15:14 Oxygen Delivery Method Room Air 02/15/23 15:14 Tobacco/Smoking Status: Tobacco use Status Tobacco use date assessed 02/15/23 02/15/23 15:19 Patient Tobacco Use Status Never used Tobacco 02/15/23 15:19 e-Cigarette/Vaping Use Never Used 02/15/23 15:19 PHQ-9: PHQ-9 Score PHQ-9: Total score 0 02/15/23 15:28 Depression Screening Interpretation: Negative Thrive Assessment: Date of Thrive Assessment Date Thrive assessed 01/03/23 02/15/23 15:19 Const Other: In wheelchair General: cooperative and no acute distress Orientation/consciousness: patient oriented x3 HENMT Head: Yes normocephalic and Yes atraumatic Ears: TM's normal bilaterally Face and sinus: Yes sinuses nontender Mouth: oropharynx normal and moist mucous membranes Throat: Yes posterior oropharynx normal Eyes General: appearance normal, both eyes and all related structures Pupils: Equal, round and reactive pupils present EOM: EOMs intact bilaterally Neck Neck: Yes normal visual inspection, Yes full ROM and Yes no lymphadenopathy Thyroid: Thyroid normal Resp Effort & Inspection: normal respiratory effort and able to speak in complete sentences Auscultation: clear to auscultation bilaterally, no crackles, no rales, no rhonchi and no wheezes Cardio Rate: regular rate Rhythm: regular rhythm Heart sounds: S1 normal heart sound present, S2 normal heart sound present and no murmurs GI Palpation (GI): Soft to palpation, not firm, nontender, no guarding, not rigid and no hepatosplenomegaly Auscultation: normal bowel sounds Skin General skin exam: no rashes or lesions noted Neuro General: patient oriented x3 Cranial nerves: Yes Equal, round and reactive pupils present Extrem Other: Right arm mild weakness noted status post CVA Left lower extremity nonpitting edema +2 Right BKA Assessment and Plan Assessment & Plan (1) Lower extremity edema: Code(s): R60.0 - Localized edema Plan: Elevate left lower extremity Encouraged to apply Evens wrap on during the day and off at night Continue Lasix 40 mg daily (2) Morbid obesity: Comment: Patient is in weight management program. Weight is still up and down. He does need to lose lot of weight, I think he will benefit from bariatric surgery, which has not been considered yet Code(s): E66.01 - Morbid (severe) obesity due to excess calories Plan: Patient reports that he will call weight management for an appointment Encouraged healthy food choices (3) CKD (chronic kidney disease) stage 3, GFR 30-59 ml/min: Code(s): N18.30 - Chronic kidney disease, stage 3 unspecified Qualifiers: Chronic kidney disease stage 3 subtype: unspecified whether 3a or 3b Qualified Code(s): N18.30 - Chronic kidney disease, stage 3 unspecified Plan: Continue to follow-up with nephrology as scheduled Avoid nephrotoxic medications (4) Annual physical exam: Code(s): Z00.00 - Encounter for general adult medical examination without abnormal findings Plan: Repeat in 1 year (5) Type 2 diabetes mellitus with unspecified complications: Code(s): E11.8 - Type 2 diabetes mellitus with unspecified complications Plan: A1c 6.9 12/2022 Continue current treatment Continue to follow-up with endocrinology Ophthalmology referral for diabetic eye exam (6) Essential hypertension: Code(s): I10 - Essential (primary) hypertension Plan: Goal BP equal or less than 140/90 Continue current treatment Low-sodium diet (7) GERD (gastroesophageal reflux disease): Code(s): K21.9 - Gastro-esophageal reflux disease without esophagitis Qualifiers: Esophagitis presence: without esophagitis Qualified Code(s): K21.9 - Gastro-esophageal reflux disease without esophagitis Plan: Continue current treatment Avoid GERD trigger foods Do not lay down 2-3 hours after evening meal (8) HLD (hyperlipidemia): Code(s): E78.5 - Hyperlipidemia, unspecified Qualifiers: Hyperlipidemia type: unspecified Qualified Code(s): E78.5 - Hyperlipidemia, unspecified Plan: LDL 75 08/2022 Continue atorvastatin Low-cholesterol diet Plan Follow-up with PCP in 3 months or sooner as needed Orders: Orders TSH reflex Free T4 Today E11.8 - Type 2 diabetes mellitus with unspecified complications Complete Blood Count Auto Diff Today E11.8 - Type 2 diabetes mellitus with unspecified complications Referrals Ophthalmology Referral E11.8 - Type 2 diabetes mellitus with unspecified complications Coding Level of Care Code Est Pt Prev Care 18-39y([id number]) Diagnoses Lower extremity edema R60.0 Morbid obesity E66.01 CKD (chronic kidney disease) stage 3, GFR 30-59 ml/min N18.30 Chronic kidney disease stage 3 subtype: unspecified whether 3a or 3b Annual physical exam Z00.00 Type 2 diabetes mellitus with unspecified complications E11.8 Essential hypertension I10 GERD (gastroesophageal reflux disease) K21.9 Esophagitis presence: without esophagitis HLD (hyperlipidemia) E78.5 Hyperlipidemia type: unspecified Additional Codes KAMALA-7 Assessment Billing - KAMALA-7 Assessment Tool: KAMALA-7 Assessment [id number] ([id number])
== END 2023-02-15 15:40 | disposition home or self-care (01) ==
PROVIDERS: PCP Physician Assistant; Visit Provider Nurse Practitioner Family
DX: Z00.00 Encounter for general adult medical examination without abnormal findings (principal); E11.22 Type 2 diabetes mellitus with diabetic chronic kidney disease; N18.30 Chronic kidney disease, stage 3 unspecified; I12.9 Hypertensive chronic kidney disease with stage 1 through stage 4 chronic kidney disease, or unspecified chronic kidney disease; E66.01 Morbid (severe) obesity due to excess calories; R60.0 Localized edema; K21.9 Gastro-esophageal reflux disease without esophagitis; E78.5 Hyperlipidemia, unspecified
CPT/HCPCS: 99395

== ENCOUNTER 2023-03-12 14:02 | Outpatient (AMB) | payer OTHER, SELFPAY ==
--- NOTE | 2023-03-12 14:24 | MHC.OFFVIS ---
Intake Vital Signs 03/12/23 14:26 Height 5 ft 9 in BMI Reason not done Patient refused/unable BP 122/68 Blood Pressure Location Lt brachial Position Sitting Pulse 100 Pulse Source Pulse Oximeter Pulse Oximetry (%) 100 Oxygen Delivery Method Room Air Intake Visit Reasons: Obstructive sleep apnea Intake Note: pt is here for follow up and states he is doing well with c-pap , breathing is good. Optician Manager Required: No Allergies sulfamethoxazole [From Bactrim] Adverse Reaction (Intermediate, Verified 03/12/23 14:39) Elevated renal functions trimethoprim [From Bactrim] Adverse Reaction (Intermediate, Verified 03/12/23 14:39) Elevated renal functions Medication List - Last Reconciled 03/12/23 by Malu Anderson MD acetaminophen ER (Mapap Arthritis Pain) 1,300 mg (2 x 650 mg) PO Q8H PRN 90 days alcohol swabs 1 pad topical QID aspirin (Adult Aspirin Regimen) 81 mg PO DAILY 90 days atorvastatin 80 mg PO BEDTIME 30 days blood pressure kit-extra large As directed blood sugar diagnostic (FreeStyle Lite Strips) As directed blood sugar diagnostic 4x daily carvedilol 25 mg PO BID cholecalciferol (vitamin D3) (Vitamin D3) 25 mcg PO DAILY duloxetine 30 mg PO BID famotidine 20 mg PO DAILY 30 days ferrous sulfate 325 mg PO DAILY furosemide 40 mg (2 x 20 mg) PO DAILY 30 days gabapentin 800 mg PO BID 30 days hydralazine 100 mg PO BID incontinence pad, liner, disp As directed insulin regular hum U-500 conc (Humulin R U-500 (Conc) Insulin Kwikpen) 40 units (0.08 mL) subcut TID 30 days lancets As directed latex gloves (Latex Gloves, Large) As directed lisinopril 1 tab PO DAILY melatonin 10 mg PO DAILY miscellaneous medical supply 1 ea miscellaneous ONCE 4 weeks miscellaneous medical supply 1 ea miscellaneous .once per week 4 weeks miscellaneous medical supply 1 ea miscellaneous DAILY 90 days nifedipine ER 90 mg PO DAILY 90 days omeprazole 40 mg PO DAILY 90 days pantoprazole 80 mg (2 x 40 mg) PO DAILY 90 days pen needle, diabetic As directed semaglutide 1 mg (0.75 mL) subcut QWEEK 30 days spironolactone 25 mg PO DAILY 90 days thiamine HCl (vitamin B1) 100 mg PO DAILY tramadol 50 mg PO TID PRN 30 days Do you need a note to return to daycare/school/sports/work: No HPI Obstructive sleep apnea HPI Details 37 YEARS OLD GENTLEMAN WITH MORBID OBESITY, COULD NOT BE WEIGHED IN THE OFFICE TODAY, HE HAS OBSTRUCTIVE SLEEP APNEA, BEING TREATED WITH CPAP. THE PATIENT IS NON AMBULATORY, STATUS POST RIGHT BELOW-KNEE AMPUTATION, AND HAS STASIS EDEMA OF THE LEFT LEG. HE IS IN A WIDE WHEELCHAIR. AT HOME HE HAS HOSPITAL BED , SLEEPS IN THE BED WITH HAD PROPPED UP. SLEEP APNEA IS BEING TREATED EFFECTIVELY WITH USE OF CPAP, ( APAP 6-20 CMS NASAL MASK ) HE STATES THAT HE USES CPAP EVERY NIGHT AT LEAST FOR 6-7 HOURS PER NIGHT AND SLEEPS GOOD. . DENIES ANY RESPIRATORY ISSUES HE GETS HIS SUPPLIES REGULARLY ON TIME. HE HAD MISSED GOING TO WEIGHT MANAGEMENT PROGRAM. HE SAY IS THAT HE IS DEFINITELY GOING TO CALL AND MAKE APPOINTMENT TO PARTICIPATE IN THE WEIGHT MANAGEMENT PROGRAM AGAIN. [facility] Medical History Below knee amputation Blind left eye CVA (cerebral vascular accident) Depression GERD (gastroesophageal reflux disease) GERD (gastroesophageal reflux disease) HLD (hyperlipidemia) HTN (hypertension) Morbid obesity Neuropathy Obesity NOLAN (obstructive sleep apnea) Right below-knee amputee Sleep apnea Type 2 diabetes mellitus Vitamin D deficiency Surgical History History of amputation of right foot Hx of eye surgery Family History Mother Diabetes Father Prostate cancer Paternal Aunt Diabetes Brother No problems noted. Brother No problems noted. Brother No problems noted. Brother No problems noted. Brother No problems noted. Sister No problems noted. Social History Housing: Apartment Alcohol intake: never Patient Tobacco Use Status: Never used Tobacco e-Cigarette/Vaping Use: Never Used Second Hand Smoke Exposure: No service: No Current occupational status: disabled Cognitive needs: Yes (walk, wheelchair) Hearing needs: No Vision needs: Yes (glasses) Review of Systems Const All systems reviewed & are unremarkable except as noted in HPI and below Reports snoring (Much less since he is using CPAP) Eyes Reports no additional complaints ENT Reports no additional complaints Card Denies chest pain, Denies irregular heart rhythm and Denies leg edema Resp Reports no additional complaints, Denies cough, Reports snoring (Much less since he is using CPAP) and Denies wheezing GI Reports heartburn (Being treated for GERD) Reports no additional complaints Musc Reports abnormal gait (Non ambulatory mostly in the powered wheelchair), Reports back pain and Reports muscle weakness Skin/Breast Reports system reviewed and no additional complaints, except as documented Neuro Reports abnormal gait (Non ambulatory mostly in the powered wheelchair) Psych Reports no additional complaints Aller/Immun Denies wheezing Physical Exam Vital Signs: Last Vital Signs Pulse 100 03/12/23 14:26 BP 122/68 03/12/23 14:26 Pulse Ox 100 03/12/23 14:26 Oxygen Delivery Method Room Air 03/12/23 14:26 He is obviously morbidly obese, with a round face. He is in powered wheelchair, Const General: comfortable, no acute distress, alert and awake Orientation/consciousness: patient oriented x3 HEENT Head: Yes normal to inspection General nose exam: No nasal polyps present and No nasal discharge present Face and sinus: Yes sinuses nontender Mouth: oropharynx abnormals (Very crowded and narrow oropharynx, Mallampati class 4) Throat: Yes posterior oropharynx normal Eyes General: appearance normal, both eyes and all related structures Neck Neck: Yes normal visual inspection, Yes no lymphadenopathy, Yes trachea midline and Yes no JVD Thyroid: Thyroid normal Chest Chest palpation & inspection: normal inspection of the chest, normal palpation of entire chest wall and no tenderness Resp Other: Percussion note is not perceptible, breath sounds are distant because of the thick chest wall. But no wheezes or rhonchi are heard. Cardio Palpation: PMI not normal (Not palpable) Rate: regular rate Rhythm: regular rhythm Heart sounds: no gallops and no murmurs Peripheral pulses: Peripheral pulses 2+ throughout GI Palpation (GI): Soft to palpation, nontender, No hepatosplenomegaly present, no masses and Other GI palpation findings present (Abdomen grossly obese and protuberant) Auscultation: normal bowel sounds Back/Spine/Pelvis Thoracic/Lumbar Spine: thoracic and lumbar spine normal to inspection and thoraco-lumbar ROM limited Skin General skin exam: no rashes or lesions noted Neuro General: patient oriented x3, No gait normal (Non ambulatory) and no focal motor deficits Cranial nerves: Yes CN's II-XII intact bilaterally Extrem Other: Right leg amputee. General: Yes normal to inspection, Yes no clubbing, cyanosis or edema, Yes no calf tenderness and Yes edema (PUFFINESS AROUND THE LEFT ANKLE, WITH QUESTIONABLE STASIS EDEMA.) Psych Appearance: grossly normal and well kempt Speech and movement: Normal speech and movement present Assessment & Plan Assessment & Plan (1) NOLAN (obstructive sleep apnea): Comment: PATIENT HAS LONG-STANDING HISTORY OF OBSTRUCTIVE SLEEP APNEA, EXPECTED FROM HIS MORBID OBESITY. SLEEP STUDY CONFIRMED PRESENCE OF MODERATELY SEVERE NOLAN, WITH MINIMAL NOCTURNAL HYPOXEMIA. PATIENT WAS STARTED ON AUTO PAP MODE PRESSURE SETTING 6-20 CM. COMPLIANCE DATA NOT AVAILABLE TODAY BUT THE PATIENT CLAIMS THAT HE IS USING IT REGULARLY EVERY NIGHT, AND SLEEPS GOOD. CLINICALLY HE IS DEFINITELY BENEFITTING FROM THE USE OF CPAP . Code(s): G47.33 - Obstructive sleep apnea (adult) (pediatric) (2) Morbid obesity: Comment: PATIENT REMAINS MORBIDLY OBESE, COULD NOT GET HIS EXACT WEIGHT BECAUSE HE IS NOT ABLE TO STAND. PATIENT HAS LEFT THE WEIGHT MANAGEMENT PROGRAM. I HAVE URGED HIM TO CALL BACK FOR AN APPOINTMENT AND REJOIN THE PROGRAM. ALSO URGED HIM TO KEEP HIS APPOINTMENTS OF EVERY 6 MONTHS FOR FOLLOW-UP. Code(s): E66.01 - Morbid (severe) obesity due to excess calories Coding Level of Care Code Est Pt Level 3 (37557) Diagnoses NOLAN (obstructive sleep apnea) G47.33 Morbid obesity E66.01
[2023-03-12 14:26] VITALS: BP 122/68; PULSE 100; O2SAT 100
== END 2023-03-12 14:39 | disposition home or self-care (01) ==
PROVIDERS: PCP Physician Assistant; Visit Provider Internal Medicine
DX: G47.33 Obstructive sleep apnea (adult) (pediatric) (principal); E66.01 Morbid (severe) obesity due to excess calories
CPT/HCPCS: 99213

== ENCOUNTER → 2023-03-12 14:02 | Outpatient (BNVA) | payer OTHER, SELFPAY | PROVIDERS: PCP Physician Assistant; Visit Provider Internal Medicine | DX: G47.33 Obstructive sleep apnea (adult) (pediatric) (principal); E66.01 Morbid (severe) obesity due to excess calories | CPT/HCPCS: 99212 ==

== ENCOUNTER 2023-05-21 15:09 | Outpatient (AMB) | payer OTHER, SELFPAY ==
--- NOTE | 2023-05-21 15:14 | MHC.PC.OV ---
Vital Signs 05/21/23 15:29 Height 5 ft 9 in BP 122/82 Blood Pressure Location Lt brachial Position Sitting Pulse 94 Pulse Source Pulse Oximeter Pulse Oximetry (%) 98 Oxygen Delivery Method Room Air Intake Visit Reasons: DM, HTN, GERD Planner/Scheduler Required: No Accompanied by: Sister Allergies sulfamethoxazole [From Bactrim] Adverse Reaction (Intermediate, Verified 05/21/23 16:05) Elevated renal functions trimethoprim [From Bactrim] Adverse Reaction (Intermediate, Verified 05/21/23 16:05) Elevated renal functions Medication List - Last Reconciled 05/21/23 by Clay Guevara PA-C acetaminophen ER (Mapap Arthritis Pain) 1,300 mg (2 x 650 mg) PO Q8H PRN 90 days alcohol swabs 1 pad topical QID aspirin (Adult Aspirin Regimen) 81 mg PO DAILY 90 days atorvastatin 80 mg PO BEDTIME 30 days blood pressure kit-extra large As directed blood sugar diagnostic (FreeStyle Lite Strips) As directed blood sugar diagnostic 4x daily carvedilol 25 mg PO BID cholecalciferol (vitamin D3) (Vitamin D3) 25 mcg PO DAILY duloxetine 30 mg PO BID famotidine 20 mg PO DAILY 30 days ferrous sulfate 325 mg PO DAILY furosemide 40 mg (2 x 20 mg) PO DAILY 30 days gabapentin 800 mg PO BID 30 days hydralazine 100 mg PO BID incontinence pad, liner, disp As directed insulin regular hum U-500 conc (Humulin R U-500 (Conc) Insulin Kwikpen) 40 units (0.08 mL) subcut TID 30 days lancets As directed latex gloves (Latex Gloves, Large) As directed lisinopril 1 tab PO DAILY melatonin 10 mg PO DAILY miscellaneous medical supply 1 ea miscellaneous ONCE 4 weeks miscellaneous medical supply 1 ea miscellaneous .once per week 4 weeks miscellaneous medical supply 1 ea miscellaneous DAILY 90 days nifedipine ER 90 mg PO DAILY 90 days omeprazole 40 mg PO DAILY 90 days pantoprazole 80 mg (2 x 40 mg) PO DAILY 90 days pen needle, diabetic As directed semaglutide 1 mg (0.75 mL) subcut QWEEK 30 days spironolactone 25 mg PO DAILY 90 days thiamine HCl (vitamin B1) 100 mg PO DAILY tramadol 50 mg PO TID PRN 30 days Tobacco use date assessed: 02/15/23 Dental Screening Dental Screen Date: 05/21/23 Did you have a dental visit in the last 12 months?: Yes Did you have a dental problem in the last 6 months where you did not have access to dental care?: No Was dental information given to patient?: Patient has dentist HPI DM, HTN, GERD HPI Details Patient a 37-year-old male here today for follow-up visit. ? Patient has a past medical history significant for DMII, HTN, HLD, Obesity, CVA, CKD , Amputee ( Right foot), CHF. Concerns--> he reports he continues to have lower extremity phantom limb pain. He does take gabapentin 800 BID which has not been very helpful. He also reports he continues to have shoulder pain that he has done physical therapy for. Has been also using tramadol 50 mg b.i.d. .. CHRONIC MEDICAL CONDITION--> Obesity:? He is currently enrolled in the weight management program here at [place] and has gotten cardiac evaluation and clearance for surgery.? He reports he did lose 30 lb when he was active with weight management room. ? Has been having a difficult time losing weight.? He has stopped following up with weight management and interested reestablishing care. ?Also will be going for sleep study in the next few weeks for his obstructive sleep apnea. He is eager to bariatric surgery to help loose weight. ? .. ? DMII: He was followed by Director Of Philanthropy here in [place].? Today's A1c at 8.3 from 6.9. He does report some dietary indiscretion as of lately. He ?Had a DM nonhealing foot ulcer in 2017 and needed an amputation.? Patient reports he is still awaiting a right lower extremity prosthesis so he can be come more active.? He does report gaining weight due to not being physically active. PLAN: Will increase his so some back to 2 mg weekly for better diabetes control and added benefit of weight loss. .. GERD:? Currently taking omeprazole in the morning and pantoprazole at night. .. Obstructive sleep apnea:? He now has a CPAP machine which he uses a nightly basis with good effect.? He follows a central office equipment installer. ? .. ? HTN:? Pressures have been better controlled with the addition of carvedilol 25 mg b.i.d..? Patient denies any chest discomfort, headaches, palpitations. ? .. ? CKD stage3 - Followed by vocational services specialist? whom is managing blood pressure meds. He has been set up for US of his kidney in Aug 2020. Most recent microalbumin elevated.? He was seen urgently at ER will taking Bactrim and his creatinine was 2.27 which is elevated above baseline. Laboratory Tests 08/14/22 12/20/22 05/21/23 15:50 15:21 15:53 Hgb A1c (Clinic) 6.9 H 8.3 H LDL Cholesterol Di rect 79 PFSH Medical History (Updated 05/22/23 @ 07:35 by Clay Guevara PA-C) Abnormal stress test History of stroke Morbid obesity NOLAN (obstructive sleep apnea) GERD (gastroesophageal reflux disease) HTN (hypertension) Right below-knee amputee Blind left eye Depression Neuropathy CVA (cerebral vascular accident) Sleep apnea Obesity Vitamin D deficiency HLD (hyperlipidemia) GERD (gastroesophageal reflux disease) Below knee amputation Type 2 diabetes mellitus Surgical History Hx of eye surgery History of amputation of right foot Family History Mother Diabetes Father Prostate cancer Paternal Aunt Diabetes Brother No problems noted. Brother No problems noted. Brother No problems noted. Brother No problems noted. Brother No problems noted. Sister No problems noted. Social History Housing: Apartment Alcohol intake: never Patient Tobacco Use Status: Never used Tobacco e-Cigarette/Vaping Use: Never Used Second Hand Smoke Exposure: No service: No Current occupational status: disabled Cognitive needs: Yes (walk, wheelchair) Hearing needs: No Vision needs: Yes (glasses) Questionnaire Thrive Questionnaire Date Thrive assessed: 01/03/23 KAMALA-7 AMB Questionnaire KAMALA-7 Date KAMALA - 7 assessed: 02/15/23 Source: Developed by Drs. Flaco Tovar, Muna Baumann, Satnam Pendleton and colleagues, with an educational carmelo from [employer]. Review of Systems Const Denies headache(s) Eyes Denies loss of vision ENT Denies vertigo, Denies dizziness, Denies headache(s) and Denies sore throat Card Denies chest pain, Denies leg edema and Denies lightheadedness Resp Denies cough, Denies hemoptysis and Denies wheezing GI Denies abdominal pain, Denies melena, Denies constipation, Denies diarrhea and Denies vomiting Denies dysuria, Denies urinary frequency and Denies urinary urgency Musc Denies arthralgias, Denies joint swelling, Denies numbness and Denies tingling Neuro Denies Abnormal speech present, Denies behavioral changes, Denies vertigo, Denies dizziness, Denies headache(s), Denies loss of vision, Denies memory loss, Denies numbness and Denies tingling Psych Denies anxiety, Denies behavioral changes, Denies depression, Denies memory loss and Denies panic attacks Eugenio/Lymph Denies easy bleeding and Denies easy bruising Aller/Immun Denies wheezing Physical exam (Primary Care) Vital Signs: Last Vital Signs Pulse 94 05/21/23 15:29 BP 122/82 05/21/23 15:29 Pulse Ox 98 05/21/23 15:29 Oxygen Delivery Method Room Air 05/21/23 15:29 BMI Assessment/Plan discussion: High Tobacco/Smoking Status: Tobacco use Status Tobacco use date assessed 02/15/23 05/21/23 15:14 Patient Tobacco Use Status Never used Tobacco 05/21/23 15:14 e-Cigarette/Vaping Use Never Used 05/21/23 15:14 Thrive Assessment: Date of Thrive Assessment Date Thrive assessed 01/03/23 05/21/23 15:14 Const Other: Morbidly obese, sitting somewhat comfortably in wheelchair. General: healthy appearing, no acute distress, alert and awake Nutritional Appearance: well nourished Orientation/consciousness: oriented to person, oriented to place and oriented to time HENMT Ears: TM's normal bilaterally General nose exam: Normal nasal mucous membranes and turbinates present Eyes Conjunctivae: conjunctivae normal Sclerae: sclerae normal Pupils: Equal, round and reactive pupils present Neck Neck: Yes no lymphadenopathy and Yes no JVD Thyroid: Thyroid normal Carotids: no bruits Resp Effort & Inspection: normal respiratory effort and not tachypneic Auscultation: no crackles, no rales, no rhonchi and no wheezes Cardio Rate: regular rate Rhythm: regular rhythm Heart sounds: no murmurs and normal S1 and S2 GI Palpation (GI): Soft to palpation, nontender, no hepatomegaly and no splenomegaly Auscultation: normal bowel sounds Skin General skin exam: no rashes or lesions noted and dry skin Neuro General: oriented to person, oriented to place and oriented to time Cranial nerves: Yes Equal, round and reactive pupils present Speech: No Abnormal speech present Gait exam (Neuro): Normal gait present Motor exam (neuro): no tremor noted Extrem Other: RIGHT LOWER EXTREMITY NOTED BELOW-KNEE AMPUTATION. Right upper extremity: full ROM Left upper extremity: full ROM Right lower extremity: edema Left lower extremity: full ROM; no edema Psych Mental Status: mental status grossly normal Speech and movement: Normal speech and movement present Affect: normal affect Attitude: cooperative Thought process: Normal thought process present Office Procedures Flu Questionnaire Does the patient have a severe egg allergy?: No Does the patient have severe life threatening allergies?: No Does the patient have a fever or illness today?: No Has the patient ever had Guillain-[place] Syndrome?: No Has the patient ever had any past reaction to a flu shot?: No Results AMB Hemoglobin A1c AMB Hemoglobin A1c 8.3 % Last Edit by WALE Benitez on 05/21/23 15:54 Immunizations flu vacc [id number] 6mos up(PF) 60 mcg(15 mcgx4)/0.5 mL IM syringe Performing Provider: Clay Guevara PA-C Performing Location: [facility] Administered by: WALE Benitez on 05/21/23 15:54 Dose Route Admin Location Dispensed Lot Number Expiration Date NDC Starting Sheet Tank Operator 0.5 mL IM Right Deltoid 0.5 mL [id number] 02/03/24 91988-198-05 [place] VIS Given Date VIS Provided VIS Publication Date 05/21/23 Single Vaccine 21 Eligibility Eligibility Date Funding Source Not [facility] Eligible 05/21/23 Private Results Reviewed Results Reviewed: Laboratory Last Values Hgb A1c (Clinic) 8.3 % (4.0-6.0) H 05/21/23 15:53 Assessment and Plan Assessment & Plan (1) Type 2 diabetes mellitus with unspecified complications: Code(s): E11.8 - Type 2 diabetes mellitus with unspecified complications Plan: Patient's type 2 diabetes seems to be well controlled now that he has at continues glucose monitor. He is on high-dose insulin therapy and continues follow-up with his electronic bench technician. Will increase his Ozempic dose. Goal A1c is to be below 7.0 (2) Phantom pain: Code(s): G54.6 - Phantom limb syndrome with pain Plan: Patient reports his phantom limb pain has been worsened late. He does report gabapentin work some though feels he needs a higher dose thus will increase gabapentin 800 t.i.d.. (3) Essential hypertension: Code(s): I10 - Essential (primary) hypertension Plan: Patient reports blood pressures have been stable. Continues on multiple medications for his blood pressure at this time. Goal blood pressure be below 140/90 (4) Morbidly obese: Code(s): E66.01 - Morbid (severe) obesity due to excess calories Plan: He is considering bariatric surgery still. He was followed by a [facility] bariatric program though has not had any follow-up in unfortunately has gained his weight back. He is consider restarting program (5) CKD (chronic kidney disease) stage 3, GFR 30-59 ml/min: Code(s): N18.30 - Chronic kidney disease, stage 3 unspecified Qualifiers: Chronic kidney disease stage 3 subtype: unspecified whether 3a or 3b Qualified Code(s): N18.30 - Chronic kidney disease, stage 3 unspecified Plan: Patient continues to follow nephrology. Most recent creatinine 1.59, continues to have microalbuminuria. Will continue to avoid nephrotoxins. (6) Amputated right leg: Code(s): S88.911A - Complete traumatic amputation of right lower leg, level unspecified, initial encounter Plan: Continues to be mostly wheelchair-bound, does have prosthetic for his right lower extremity. He does report having some phantom limb pain as of late which she reports gabapentin is helpful though feels he needs higher dose. He is also interested in speaking with a set painter about pain reduction as phantom limb pain. (7) CVA (cerebral vascular accident): Code(s): I63.9 - Cerebral infarction, unspecified Qualifiers: CVA mechanism: embolism Precerebral and cerebral artery: unspecified cerebral artery Qualified Code(s): I63.40 - Cerebral infarction due to embolism of unspecified cerebral artery Plan: Secondary to his comorbidities hypertension type 2 diabetes. Has not had any stroke symptoms. Does have deficit on right side. (8) Right shoulder pain: Code(s): M25.511 - Pain in right shoulder Qualifiers: Chronicity: chronic Qualified Code(s): M25.511 - Pain in right shoulder; G89.29 - Other chronic pain Plan: Continues to have right neck shoulder pain. Has done physical therapy though has not main much improvement. He would like to see orthopedic for evaluation possible cortisone injection. (9) Morbid obesity: Comment: PATIENT REMAINS MORBIDLY OBESE, COULD NOT GET HIS EXACT WEIGHT BECAUSE HE IS NOT ABLE TO STAND. PATIENT HAS LEFT THE WEIGHT MANAGEMENT PROGRAM. I HAVE URGED HIM TO CALL BACK FOR AN APPOINTMENT AND REJOIN THE PROGRAM. ALSO URGED HIM TO KEEP HIS APPOINTMENTS OF EVERY 6 MONTHS FOR FOLLOW-UP. Code(s): E66.01 - Morbid (severe) obesity due to excess calories Plan: Patient does understand he is morbidly obese. He has been in and out of weight management programs though has found it difficult to lose weight. He does seem to lack somewhat motivation. He does admit he has have a eating problem and will try to work on his eating habits. Orders: Orders AMB Hemoglobin A1c 05/21/23 E11.8 - Type 2 diabetes mellitus with unspecified complications Influenza [id number] Immunization 05/21/23 Z23 - Encounter for immunization Microalbumin, Random (w Creat) 05/21/23 I10 - Essential (primary) hypertension Comprehensive [place]. Panel Fast 05/21/23 I10 - Essential (primary) hypertension Lipid Panel 05/21/23 E78.5 - Hyperlipidemia, unspecified Complete Blood Count no Diff 05/21/23 E11.8 - Type 2 diabetes mellitus with unspecified complications Referrals Pain Management Referral G54.6 - Phantom limb syndrome with pain Ophthalmology Referral E11.8 - Type 2 diabetes mellitus with unspecified complications Orthopedics Referral M19.011 - Primary osteoarthritis, right shoulder Medications: New semaglutide (Ozempic) 2 mg (0.75 mL) subcut QWEEK 4 weeks 3 mL 3RF E11.8 - Type 2 diabetes mellitus with unspecified complications chair, wheel (Wheel chair) As directed 1 ea 0RF S88.911A - Complete traumatic amputation of right lower leg, level unspecified, initial encounter Changed From gabapentin 800 mg PO BID 30 days 60 tabs 3RF G54.6 - Phantom limb syndrome with pain To gabapentin 800 mg PO TID 30 days 90 tabs 3RF G54.6 - Phantom limb syndrome with pain Discontinued thiamine HCl (vitamin B1) Discontinued Reason: Doctor's Order 100 mg PO DAILY 30 tabs 2RF E51.9 - Thiamine deficiency, unspecified semaglutide Discontinued Reason: Doctor's Order 1 mg (0.75 mL) subcut QWEEK 30 days 3.75 mL 6RF E11.8 - Type 2 diabetes mellitus with unspecified complications Coding Level of Care Code Est Pt Level 4 (76322) Diagnoses Type 2 diabetes mellitus with unspecified complications E11.8 Phantom pain G54.6 Essential hypertension I10 Morbidly obese E66.01 Stage 3 chronic kidney disease, unspecified whether stage 3a or 3b CKD N18.30 Chronic kidney disease stage 3 subtype: unspecified whether 3a or 3b Amputated right leg S88.911A Cerebrovascular accident (CVA) due to embolism of cerebral artery I63.40 CVA mechanism: embolism Precerebral and cerebral artery: unspecified cerebral artery Chronic right shoulder pain M25.511; G89.29 Chronicity: chronic
[2023-05-21 15:29] VITALS: BP 122/82; PULSE 94; O2SAT 98
== END 2023-05-21 16:23 | disposition home or self-care (01) ==
PROVIDERS: PCP Physician Assistant; Visit Provider Physician Assistant
DX: Z23 Encounter for immunization (principal); E11.8 Type 2 diabetes mellitus with unspecified complications
CPT/HCPCS: 83036; 90471; 90686; 99214

== ENCOUNTER 2023-06-06 10:20 | Outpatient (REF) | payer OTHER, SELFPAY ==
--- NOTE | ~2023-06-06 | XR_ITS ---
EXAMINATION: XR SHOULDER, RIGHT CLINICAL INFORMATION: Reason for Exam M25.511 - Pain in right shoulder COMPARISON: None TECHNIQUE: Three views of the shoulder. FINDINGS: No acute fracture. Inferior subluxation of the humeral head with respect to the glenoid which can be seen in the setting of rotator cuff pathology.. Joint spaces are maintained without significant degenerative change. Soft tissues are unremarkable. XR/XR shoulder RT min 2V IMPRESSION: 1. Inferior subluxation of the humeral head with respect to the glenoid which can be seen in the setting of rotator cuff pathology. 2. No acute fracture.
== END 2023-06-06 10:21 | disposition home or self-care (01) ==
LOC: HO.HOSX 10:20
PROVIDERS: Visit Provider Orthopaedic Surgery
DX: M25.511 Pain in right shoulder (principal); M25.811 Other specified joint disorders, right shoulder; Z79.899 Other long term (current) drug therapy
CPT/HCPCS: 20610; 73030; 99202; J3301

== ENCOUNTER 2023-06-06 14:05 | Outpatient (AMB) | payer OTHER, SELFPAY ==
--- NOTE | 2023-06-06 14:22 | A.OFFVIS_ITS ---
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 Hx of stroke. Patient reports that he has had ongoing right shoulder pain for about 5-6 year now. Pain is felt on the right side of the neck and down to the shoulder. He has done PT with minimal relief. Hx of cortisone which was helpful. He is interested in possible cortisone. Allergies sulfamethoxazole [From Bactrim] Adverse Reaction (Intermediate, Verified 06/06/23 14:28) Elevated renal functions trimethoprim [From Bactrim] Adverse Reaction (Intermediate, Verified 06/06/23 14:28) Elevated renal functions Medication List - Last Reconciled 06/06/23 by Raffi Martins MD acetaminophen ER (Mapap Arthritis Pain) 1,300 mg (2 x 650 mg) PO Q8H PRN 90 days alcohol swabs 1 pad topical QID aspirin (Adult Aspirin Regimen) 81 mg PO DAILY 90 days atorvastatin 80 mg PO BEDTIME 30 days blood pressure kit-extra large As directed blood sugar diagnostic (FreeStyle Lite Strips) As directed blood sugar diagnostic 4x daily carvedilol 25 mg PO BID chair, wheel (Wheel chair) As directed cholecalciferol (vitamin D3) (Vitamin D3) 25 mcg PO DAILY duloxetine 30 mg PO BID famotidine 20 mg PO DAILY 30 days ferrous sulfate 325 mg PO DAILY furosemide 40 mg (2 x 20 mg) PO DAILY 30 days gabapentin 800 mg PO TID 30 days hydralazine 100 mg PO BID incontinence pad, liner, disp As directed insulin regular hum U-500 conc (Humulin R U-500 (Conc) Insulin Kwikpen) 40 units (0.08 mL) subcut TID 30 days lancets As directed latex gloves (Latex Gloves, Large) As directed lisinopril 1 tab PO DAILY melatonin 10 mg PO DAILY miscellaneous medical supply 1 ea miscellaneous ONCE 4 weeks miscellaneous medical supply 1 ea miscellaneous .once per week 4 weeks miscellaneous medical supply 1 ea miscellaneous DAILY 90 days nifedipine ER 90 mg PO DAILY 90 days omeprazole 40 mg PO DAILY 90 days pantoprazole 80 mg (2 x 40 mg) PO DAILY 90 days pen needle, diabetic As directed semaglutide (Ozempic) 2 mg (0.75 mL) subcut QWEEK 4 weeks spironolactone 25 mg PO DAILY 90 days tramadol 50 mg PO TID PRN 30 days [facility] Medical History Abnormal stress test History of stroke Morbid obesity NOLAN (obstructive sleep apnea) GERD (gastroesophageal reflux disease) HTN (hypertension) Right below-knee amputee Blind left eye Depression Neuropathy CVA (cerebral vascular accident) Sleep apnea Obesity Vitamin D deficiency HLD (hyperlipidemia) GERD (gastroesophageal reflux disease) Below knee amputation Type 2 diabetes mellitus Surgical History Hx of eye surgery History of amputation of right foot Family History Mother Diabetes Father Prostate cancer Paternal Aunt Diabetes Brother No problems noted. Brother No problems noted. Brother No problems noted. Brother No problems noted. Brother No problems noted. Sister No problems noted. Social History Housing: Apartment Alcohol intake: never Patient Tobacco Use Status: Never used Tobacco e-Cigarette/Vaping Use: Never Used Second Hand Smoke Exposure: No service: No Current occupational status: disabled Cognitive needs: Yes (walk, wheelchair) Hearing needs: No Vision needs: Yes (glasses) Physical Exam Const Other: Well-nourished well-developed very friendly male awake alert and oriented x3 in no acute distress Extrem Other: Bilateral upper extremity examination shows good capillary refill, no skin lesions noted, normal sensation light touch Right shoulder examination shows slightly decreased range of motion when compared to his left shoulder, positive impingement signs, mild tenderness over his acromioclavicular joint Office Procedures Joint Injection/Drain Joint Injection/Drain Primary Site: right shoulder Prep: site was prepped using aseptic technique Injected: 40 mg of, Kenalog and 1% plain lidocaine Procedure: The patient tolerated the procedure well Coding 63274 - Large joint Procedure code (CPT) selection complete Results Reviewed Results Reviewed: 06/06/23 14:39 Lidocaine HCl 2 % MPF [Xylocaine 2 % MPF] 5 ml .ROUTE .STK-MED ONE Triamcinolone Acetonide [Kenalog-40] 40 mg .ROUTE .STK-MED ONE X-rays of the patient's right shoulder show acromioclavicular joint narrowing, type 2 acromion, no acute bony abnormalities Assessment & Plan Assessment & Plan (1) Impingement of right shoulder: Code(s): M25.811 - Other specified joint disorders, right shoulder Plan: Mr. Gómez presents with right shoulder pain due to impingement syndrome. I had a lengthy discussion with the patient regarding the options. The risks and benefits of a cortisone injection were discussed at length with the patient. Th e patient wished to proceed. Patient tolerated the right shoulder cortisone injection well. He will continue with his home stretching program to prevent stiffness. He will follow up with me on an as-needed basis should his symptoms not plateau at an unacceptable level over the next few months. Feel free to call me at any time should questions regarding his orthopedic management arise. Thank you very much for asking me to see this very friendly gentleman. I spent 22 minutes in reviewing the patient's records and imaging studies, seeing the patient and documenting in the medical record. Orders: Orders XR shoulder RT min 2V Today M25.511 - Pain in right shoulder AMB Joint Injection/Aspiration Today M25.811 - Other specified joint disorders, right shoulder Coding Level of Care Code New Pt Level 2 (83990) Diagnoses Impingement of right shoulder M25.811 CPT Codes Coding - 82717 Large joint: 14532 - Large joint ([id number])
== END 2023-06-06 14:56 | disposition home or self-care (01) ==
PROVIDERS: PCP Physician Assistant; Visit Provider Orthopaedic Surgery
DX: M25.811 Other specified joint disorders, right shoulder (principal); M75.41 Impingement syndrome of right shoulder
CPT/HCPCS: 20610; 99204

== ENCOUNTER 2023-07-04 13:01 | Outpatient (AMB) | payer OTHER, SELFPAY ==
--- NOTE | 2023-07-04 13:29 | A.OFFVIS_ITS ---
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 Nursing Required: No Accompanied by: Other Relationship Allergies sulfamethoxazole [From Bactrim] Adverse Reaction (Intermediate, Verified 06/06/23 14:28) Elevated renal functions trimethoprim [From Bactrim] Adverse Reaction (Intermediate, Verified 06/06/23 14:28) Elevated renal functions HPI Comprehensive Diabetes Asmnt Most Recent Diabetes Results: Microalb/Creat Ratio 431.6 ug/mg cr 08/14/22 Cholesterol 124 mg/dL 08/14/22 HDL Cholesterol 24 mg/dL 08/14/22 Triglycerides 128 mg/dL 08/14/22 Creatinine 1.59 mg/dL (0.5-1.4) H 08/14/22 Blood Urea Nitrogen 32 mg/dL (9-16) H 08/14/22 Sodium 142 mmol/L (135-145) 08/14/22 Potassium 4.2 mmol/L (3.3-5.1) 08/14/22 Chloride 107 mmol/L (96-108) 08/14/22 Carbon Dioxide 27 mmol/L (22-29) 08/14/22 Calcium 9.6 mg/dL (8.4-10.2) 08/14/22 AST 19 U/L (5-37) 08/14/22 ALT 24 U/L (0-40) 08/14/22 Total Protein 7.4 g/dL (6.5-8.0) 08/14/22 Albumin 4.3 g/dL (3.5-5.0) 08/14/22 [facility] Medical History Abnormal stress test History of stroke Morbid obesity NOLAN (obstructive sleep apnea) GERD (gastroesophageal reflux disease) HTN (hypertension) Right below-knee amputee Blind left eye Depression Neuropathy CVA (cerebral vascular accident) Sleep apnea Obesity Vitamin D deficiency HLD (hyperlipidemia) GERD (gastroesophageal reflux disease) Below knee amputation Type 2 diabetes mellitus Surgical History Hx of eye surgery History of amputation of right foot Family History Mother Diabetes Father Prostate cancer Paternal Aunt Diabetes Brother No problems noted. Brother No problems noted. Brother No problems noted. Brother No problems noted. Brother No problems noted. Sister No problems noted. Social History (Reviewed 06/06/23 @ 14:23 by Cecilia Kan [facility]) Housing: Apartment Alcohol intake: never Patient Tobacco Use Status: Never used Tobacco e-Cigarette/Vaping Use: Never Used Second Hand Smoke Exposure: No service: No Current occupational status: disabled Cognitive needs: Yes (walk, wheelchair) Hearing needs: No Vision needs: Yes (glasses) Assessment & Plan Assessment & Plan (1) Type 2 diabetes mellitus with unspecified complications: Code(s): E11.8 - Type 2 diabetes mellitus with unspecified complications Plan: Personal Continuous Glucose Monitor: Patients CGM information reviewed Reviewed patient's sensor data: Hypoglycemia: ?0% Hyperglycemia:? 48% Time in Range:?52% Average glucose for the last 2 weeks? 182 mg/dL patient reports he takes Ozempic 2 mg weekly he is prescribed Humulin U 500 40 units t.i.d., however reports he really takes over 40 units in the a.m. because he often does not eat until between 12:00 and 1:00pm patient's glucose is elevated in the evenings and overnight. recommended to patient to increase mid day dose of Humulin U 500 to 45 units Reviewed how to interpret trend arrows Reminded patient that to check finger sticks if symptoms do not match sensor reading. Discussed lag time between finger stick and sensor data.? Patient able to insert sensor independently at home without issue.? Patient Instructions: Increase mid day dose from Humulin U 500 40 units to Humulin U 500 to 45 units Use rule of 15 to treat any hypoglycemia, if evening or overnight hypoglycemia increases go back to Humulin U 500 40 units Coding Level of Care Code Est Pt Level 1 (88935) Diagnoses Type 2 diabetes mellitus with unspecified complications E11.8
== END 2023-07-04 13:33 | disposition home or self-care (01) ==
PROVIDERS: PCP Physician Assistant; Visit Provider Registered Nurse Diabetes Educator
DX: E11.8 Type 2 diabetes mellitus with unspecified complications (principal)

== ENCOUNTER → 2023-07-04 13:01 | Outpatient (BNVA) | payer OTHER, SELFPAY | PROVIDERS: PCP Physician Assistant; Visit Provider Registered Nurse Diabetes Educator | DX: E11.8 Type 2 diabetes mellitus with unspecified complications (principal) | CPT/HCPCS: 99211 ==

== ENCOUNTER 2023-08-09 09:39 | Outpatient (AMB) | payer OTHER, SELFPAY ==
[2023-08-09 09:41] VITALS: BP 118/80; PULSE 95; O2SAT 100
--- NOTE | 2023-08-09 09:41 | MHC.OFFVIS ---
Intake Vital Signs 08/09/23 09:41 Height 5 ft 9 in BMI Reason not done Patient refused/unable BP 118/80 Blood Pressure Location Lt brachial Position Sitting Pulse 95 Pulse Source Pulse Oximeter Pulse Oximetry (%) 100 Oxygen Delivery Method Room Air Intake Visit Reasons: P&O Solution Ref for Hx R BKA & L LE swelling Intake Note: Pt presents to the office today for a P&O solution ref for Hx R BKA & L LE swelling. Pt states he is having bad ankle swelling for a couple of years. Pt states his leg and ankle are not painful. Pt states he is unable to put a sock on due to the swelling. Allergies sulfamethoxazole [From Bactrim] Adverse Reaction (Intermediate, Verified 08/09/23 09:42) Elevated renal functions trimethoprim [From Bactrim] Adverse Reaction (Intermediate, Verified 08/09/23 09:42) Elevated renal functions HPI P&O Solution Ref for Hx R BKA & L LE swelling HPI Details Very complex 37-year-old gentleman presents for evaluation regarding left lower extremity swelling. Undergone right BKA approximately 8 years ago in [place]. He reports this was secondary to a diabetic foot ulcer that was uncontrolled. It progressed and he did require amputation. Of note he is wheelchair-bound secondary to a stroke that happened about 5 years ago. This was all treated back in [place]. In addition he has been a diabetic since the age of 14 and is a type 2 diabetic. Has transitioned his care up here. Upon workup by the primary care team he was noted to have a significantly swollen left lower extremity. He now presents to us for follow-up evaluation [facility] Medical History Abnormal stress test History of stroke Morbid obesity NOLAN (obstructive sleep apnea) GERD (gastroesophageal reflux disease) HTN (hypertension) Right below-knee amputee Blind left eye Depression Neuropathy CVA (cerebral vascular accident) Sleep apnea Obesity Vitamin D deficiency HLD (hyperlipidemia) GERD (gastroesophageal reflux disease) Below knee amputation Type 2 diabetes mellitus Surgical History Hx of eye surgery History of amputation of right foot Family History Mother Diabetes Father Prostate cancer Paternal Aunt Diabetes Brother No problems noted. Brother No problems noted. Brother No problems noted. Brother No problems noted. Brother No problems noted. Sister No problems noted. Social History Housing: Apartment Alcohol intake: never Patient Tobacco Use Status: Never used Tobacco e-Cigarette/Vaping Use: Never Used Second Hand Smoke Exposure: No service: No Current occupational status: disabled Cognitive needs: Yes (walk, wheelchair) Hearing needs: No Vision needs: Yes (glasses) Review of Systems Const All systems reviewed & are unremarkable except as noted in HPI and below Reports no additional complaints ENT Reports Normal hearing present Card Denies chest pain, Denies chest pain at rest, Denies chest pain with activity and Denies pedal edema Resp Denies cough GI Denies abdominal pain Musc Denies abnormal gait, Denies muscle cramps and Denies radiating pain into limb Skin/Breast Denies skin ulcer and Denies wounds Neuro Reports Normal hearing present and Denies abnormal gait Psych Reports no additional complaints Physical Exam Vital Signs: Last Vital Signs Pulse 95 08/09/23 09:41 BP 118/80 08/09/23 09:41 Pulse Ox 100 08/09/23 09:41 Oxygen Delivery Method Room Air 08/09/23 09:41 Const General: cooperative, healthy appearing and comfortable Orientation/consciousness: oriented to person, oriented to place and oriented to time HEENT Head: Yes normal to inspection Neck Neck: Yes normal visual inspection Carotids: no bruits Chest Chest palpation & inspection: normal inspection of the chest Resp Effort & Inspection: normal respiratory effort and able to speak in complete sentences Auscultation: clear to auscultation bilaterally, no crackles, no rales, no rhonchi and no wheezes Cardio Rate: regular rate Rhythm: regular rhythm Heart sounds: S1 normal heart sound present and S2 normal heart sound present Bruits: no carotid bruits Peripheral pulses: Peripheral pulses 2+ throughout GI Inspection: Yes normal to inspection Skin Wounds: amputation site (Right stump well-healed) Hair: normal Neuro General: oriented to person, oriented to place and oriented to time Cranial nerves: Yes CN's II-XII intact bilaterally and Yes Normal hearing present Cognition (Neuro): normal cognition Motor exam (neuro): 5/5 motor strength present throughout Extrem Other: venous exam: +2 edema left lower extremity General: No clubbing, No cyanosis and Yes edema Psych Appearance: grossly normal Mental Status: mental status grossly normal Speech and movement: Normal speech and movement present Assessment & Plan Assessment & Plan (1) Bilateral carotid bruits: Code(s): R09.89 - Other specified symptoms and signs involving the circulatory and respiratory systems Plan: Patient has a prior history of stroke. He has had no surveillance follow-up of this. Due to his prior history of stroke I have taken the liberty of ordering carotid ultrasound. In addition we did discuss risk factor modification in particular diabetes control . He will follow up with us after testing (2) Varicose veins of left lower extremity with inflammation: Code(s): I83.12 - Varicose veins of left lower extremity with inflammation Plan: He has significant swelling of the left lower extremity and I have taken the liberty of ordering a left lower extremity venous insufficiency test. We did discuss routine conservative measures including compression elevation and exercise as tolerated. (3) PAD (peripheral artery disease): Code(s): I73.9 - Peripheral vascular disease, unspecified Plan: He has a longstanding history of diabetes and I am unable to appreciate palpable left lower extremity pulses. We will get an ultrasound of that left leg. (4) Lymphedema: Code(s): I89.0 - Lymphedema, not elsewhere classified Plan: He has classical clinical stigmata of lymphedema. I have taken the liberty of ordering arterial and venous testing to work that up. Should that prove to be negative he may benefit from lymphedema pumps. This was discussed with the patient. He will follow up with us after testing. Thank you for allowing us to assist in his care. Plan The patient had an opportunity to ask questions regarding the treatment plan. All questions were answered. Imaging studies, laboratory studies and physical exam results were discussed and reviewed in detail. No major barriers to understanding were identified. The patient expressed understanding and agreement with the above treatment plan. The patient is aware they should contact our office by phone for worsening of the current condition or the appearance of new symptoms. Thank you for allowing me to participate in the vascular care of this patient. If you have any questions or concerns regarding the treatment for the above condition please do not hesitate to contact me. The office telephone contact is [phone]. This note is constructed using voice recognition software. While every effort has been made to ensure accuracy, customs opener verifier packer errors may have been included. Thank you for allowing me to participate in the care of your patient. Yours sincerely, Alfredo Gutierrez MD, FACS, R.P.V.I. Orders: Orders US arterial duplex LE LT 1 Week I73.9 - Peripheral vascular disease, unspecified US venous duplex LE LT 1 Week I83.12 - Varicose veins of left lower extremity with inflammation US carotid duplex BI 1 Week R09.89 - Other specified symptoms and signs involving the circulatory and respiratory systems Coding Level of Care Code Est Pt Level 4 (77627) Diagnoses Bilateral carotid bruits R09.89 Varicose veins of left lower extremity with inflammation I83.12 PAD (peripheral artery disease) I73.9 Lymphedema I89.0
== END 2023-08-09 10:05 | disposition home or self-care (01) ==
PROVIDERS: PCP Physician Assistant; Visit Provider Surgery Vascular Surgery
DX: R09.89 Other specified symptoms and signs involving the circulatory and respiratory systems (principal); I83.12 Varicose veins of left lower extremity with inflammation; I73.9 Peripheral vascular disease, unspecified; I89.0 Lymphedema, not elsewhere classified
CPT/HCPCS: 99214

== ENCOUNTER → 2023-08-09 09:39 | Outpatient (BNVA) | payer OTHER, SELFPAY | PROVIDERS: PCP Physician Assistant; Visit Provider Surgery Vascular Surgery | DX: R09.89 Other specified symptoms and signs involving the circulatory and respiratory systems (principal); I83.12 Varicose veins of left lower extremity with inflammation; I73.9 Peripheral vascular disease, unspecified; I89.0 Lymphedema, not elsewhere classified | CPT/HCPCS: 99212 ==

== ENCOUNTER 2023-08-30 14:28 | Outpatient (REF) | payer OTHER, SELFPAY ==
--- NOTE | ~2023-08-30 | US_ITS ---
EXAMINATION: US LOWER EXTREMITY DUPLEX, LEFT CLINICAL INFORMATION: Peripheral vascular disease, history of BKA TECHNIQUE: Real-time ultrasound and Doppler techniques (integrating B-mode 2-D vascular images, Doppler spectral analysis and color flow Doppler imaging) were utilized to interrogate the left lower extremities. COMPARISON: None FINDINGS: LEFT LEG: Common femoral artery: 118 cm/s, Triphasic Profunda femoris artery: 68 cm/s, Triphasic Superficial femoral artery (proximal): 87 cm/s, Triphasic Superficial femoral artery (mid): 104 cm/s, monophasic Superficial femoral artery (distal): 86 cm/s, monophasic Popliteal artery: 75 cm/s, Triphasic Anterior tibial artery: 25 cm/s, monophasic Posterior tibial artery: 82 cm/s, monophasic Dorsalis pedis artery: 31 cm/s, monophasic US/US arterial duplex LE LT IMPRESSION: Mild plaque throughout the left lower extremity. However, no increased peak systolic velocities to suggest peripheral vascular disease by Doppler criteria.
== END 2023-08-30 14:29 | disposition home or self-care (01) ==
LOC: HO.US 14:28
PROVIDERS: PCP Physician Assistant; Visit Provider Surgery Vascular Surgery
DX: I73.9 Peripheral vascular disease, unspecified (principal)
CPT/HCPCS: 93926

== ENCOUNTER 2023-09-05 10:12 | Outpatient (REF) | payer OTHER, SELFPAY ==
[2023-09-05 12:36] LABS: Hematocrit 33.9 % (42.0-52.0); Mean Corpuscular HGB Conc 32.4 g/dl (31.0-36.0); Mean Corpuscular Hemoglobin 29.5 pg (27.0-33.0); Mean Corpuscular Volume 90.9 fL (80.0-98.0); Mean Platelet Volume 10.1 fL (9.4-12.4); Platelet Count 322 X10*3/uL (160-400); Red Blood Count 3.73 X10*6/uL (4.60-5.80); Red Cell Distribution Width 12.6 % (11.0-16.0); White Blood Count 5.9 X10*3/uL (4.8-10.8)
[2023-09-05 13:19] LABS: Creatinine Urine 121.89 mg/dL; Microalbum/Creatinine Ratio Ur 384.7 ug/mg cr (<30)
[2023-09-05 13:19] LABS: Alanine Aminotransferase 28 U/L (0-40); Albumin Level 3.5 g/dL (3.5-5.0); Alkaline Phosphatase 104 U/L (39-117); Anion Gap 12 (12-20); Aspartate Amino Transferase 22 U/L (5-37); Bilirubin Total 0.3 mg/dL (0.0-1.0); Blood Urea Nitrogen 22 mg/dL (9-16); Calcium 9.7 mg/dL (8.4-10.2); Carbon Dioxide 24 mmol/L (22-29); Chloride 108 mmol/L (96-108); Cholesterol 104 mg/dL (<200); Estimated Glomerular Filt Rate 51; Glucose Fasting 122 mg/dL (60-99); HDL Cholesterol 24 mg/dL (>40); LDL Cholesterol Calculated 54 mg/dL (<100); Potassium 4.3 mmol/L (3.3-5.1); Sodium 140 mmol/L (135-145); Total Protein 7.8 g/dL (6.5-8.0); Triglycerides 130 mg/dL (<150)
== END 2023-09-05 10:13 | disposition home or self-care (01) ==
LOC: HO.LAB 10:12
PROVIDERS: Absent Provider Internal Medicine; PCP Physician Assistant; Visit Provider Internal Medicine Endocrinology, Diabetes & Metabolism
DX: E11.8 Type 2 diabetes mellitus with unspecified complications (principal); I10 Essential (primary) hypertension; E78.5 Hyperlipidemia, unspecified
CPT/HCPCS: 36415; 80053; 80061; 82043; 82570; 82947; 83036; 85027; 99211; 99212

== ENCOUNTER 2023-09-05 10:12 | Outpatient (AMB) | payer OTHER, SELFPAY ==
[2023-09-05 10:17] VITALS: BP 140/86; PULSE 95
--- NOTE | 2023-09-05 10:17 | A.OFFVIS_ITS ---
Intake Vital Signs 09/05/23 10:17 Height 5 ft 9 in BP 140/86 H Blood Pressure Location Lt brachial Position Sitting Pulse 95 Pulse Source Pulse Oximeter Intake Visit Reasons: dm/CONFIRMED Intake Note: Patient presents today to follow up on D2MT. Last seen by Dr. Carter. Last Diabetic Eye exam: Patient can't recall his last eye exam. Last Podiatry Visit: 2022 Random Glucose: 122 mg/dl HgA1c: 7.5% Clearing House Clerk Required: No Information Interpreted: non-clinical & clinical Accompanied by: Self / Same As Patient Allergies sulfamethoxazole [From Bactrim] Adverse Reaction (Intermediate, Verified 09/05/23 10:32) Elevated renal functions trimethoprim [From Bactrim] Adverse Reaction (Intermediate, Verified 09/05/23 10:32) Elevated renal functions Medication List - Last Reconciled 09/05/23 by Flaco Styles MD acetaminophen ER (Mapap Arthritis Pain) 1,300 mg (2 x 650 mg) PO Q8H PRN 90 days alcohol swabs 1 pad topical QID aspirin (Adult Aspirin Regimen) 81 mg PO DAILY 90 days atorvastatin 80 mg PO BEDTIME 30 days blood pressure kit-extra large As directed blood sugar diagnostic (FreeStyle Lite Strips) As directed blood sugar diagnostic (FreeStyle Lite Strips) USE TO TEST FINGER STICK BLOOD SUGAR 4 (FOUR) TIMES DAILY carvedilol 25 mg PO BID chair, wheel (Wheel chair) lifetime use cholecalciferol (vitamin D3) (Vitamin D3) 25 mcg PO DAILY duloxetine 30 mg PO BID famotidine 20 mg PO DAILY 30 days ferrous sulfate 325 mg PO DAILY furosemide 40 mg (2 x 20 mg) PO DAILY 30 days gabapentin 800 mg PO TID 30 days hydralazine 100 mg PO BID incontinence pad, liner, disp As directed insulin regular hum U-500 conc (Humulin R U-500 (Conc) Insulin Kwikpen) 40 units (0.08 mL) subcut TID 30 days lancets As directed latex gloves (Latex Gloves, Large) As directed lisinopril 1 tab PO DAILY melatonin 10 mg PO DAILY miscellaneous medical supply 1 ea miscellaneous ONCE 4 weeks miscellaneous medical supply 1 ea miscellaneous .once per week 4 weeks miscellaneous medical supply 1 ea miscellaneous DAILY 90 days nifedipine ER 90 mg PO DAILY 90 days omeprazole 40 mg PO DAILY 90 days pantoprazole 80 mg (2 x 40 mg) PO DAILY 90 days pen needle, diabetic As directed spironolactone 25 mg PO DAILY 90 days tirzepatide (Mounjaro) 2.5 mg (0.5 mL) subcut QWEEK 4 weeks tramadol 50 mg PO TID PRN 30 days HPI HPI Comments History of Present Illness Details 38 YO M with PMHx T2DM who is seen in F/U for the same. Initially diagnosed with T2DM at the age of 14. Was initially started on treatment with Metformin and Glyburide. Began using Insulin at the age of 20. Current regimen Ozempic 2 mg once a week and Humulin U500 40 units with with breakfast, lunch and dinner. Has DEXCOM G6. 14 days of data downloaded from 08/21/2023 through 09/03/2023h . This reveals an average glucose of 162 and SD of 42 . He is at goal 71% of the time, above goal 29% of the time, and below goal 0% of the time. No hypoglycemia He has been undergoing evaluation for bariatric surgery, but has not met the weight loss goal so surgery has been put on hold. Most recent A1C: 6.9% 12/20/2022, down from 7.5% 08/14/2021, 8.0% 01/25/2022. A1C is inaccurate given his CKD. Family history of T2DM in his Parents. Has eyes checked yearly, last eye exam , Has retinopathy. Has neuropathy. Had a R BKA in 2017 due to an infected ulcer. Has nephropathy, on Lisinopril 20 mg PO daily. UAC 431.6 08/14/2022. Has HLD, on Atorvastatin 40 mg PO daily. LDL 79 08/14/2022. Has CAD and a prior CVA. Diet: Very poor. Does not monitor carbohydrates. Admits to drinking sweetened beverages such as juice and sprite all day long. Weight: Has severe obesity. Currently attending [facility]. Labs: Laboratory Tests 08/14/22 08/14/22 08/14/22 15:50 15:50 15:50 Sodium 142 Potassium 4.2 Creatinine 1.59 H Estimated GFR 49 Hemoglobin A1c % 7.5 LDL Cholesterol Di rect 79 25-OH Vitamin D To jonah 26.6 Microalb/Creat Rat io 08/14/22 16:15 Sodium Potassium Creatinine Estimated GFR Hemoglobin A1c % LDL Cholesterol Di rect 25-OH Vitamin D To jonah Microalb/Creat Rat io 431.6 [facility] Medical History (Updated 08/14/23 @ 10:56 by Stephanie Sue RN) Abnormal stress test History of stroke Morbid obesity NOLAN (obstructive sleep apnea) GERD (gastroesophageal reflux disease) HTN (hypertension) Right below-knee amputee Blind left eye Depression Neuropathy CVA (cerebral vascular accident) Sleep apnea Obesity Vitamin D deficiency HLD (hyperlipidemia) GERD (gastroesophageal reflux disease) Below knee amputation Type 2 diabetes mellitus Surgical History Hx of eye surgery History of amputation of right foot Family History Mother Diabetes Father Prostate cancer Paternal Aunt Diabetes Brother No problems noted. Brother No problems noted. Brother No problems noted. Brother No problems noted. Brother No problems noted. Sister No problems noted. Social History Housing: Apartment Alcohol intake: never Patient Tobacco Use Status: Never used Tobacco e-Cigarette/Vaping Use: Never Used Second Hand Smoke Exposure: No service: No Current occupational status: disabled Cognitive needs: Yes (walk, wheelchair) Hearing needs: No Vision needs: Yes (glasses) Physical Exam Vital Signs: Last Vital Signs Pulse 95 09/05/23 10:17 BP 140/86 H 09/05/23 10:17 Absence of Cushingoid features. Absence of acromegalic features. Neck exam reveals nl size thyroid about 15 gms. No thyroid nodules palpable. No carotid bruits present. Lungs CTA. Heart S1 S2, Reg R/R. No M/R/ G. Skin exam reveals absence of vitiligo or acanthosis nigricans. Abdominal exam reveals Soft NT/ND with NA BS. No organomegaly present. Neck Other: . Extrem Other: Visual exam of foot performed. R BKA LLE 3 + edema No ulcerations or open lesions. No onchomycosis, no callouses.Pulses 2 + distally Sensation intact to monofilament exam. Vibratory sensation sensed is decreased with 128 Hz tuning fork Results AMB Hemoglobin A1c AMB Hemoglobin A1c 7.5 % Last Edit by YUNI Vu on 09/05/23 11:04 Results Reviewed Results Reviewed: Laboratory Last Values Glucose (Clinic) 122 mg/dL (60-115) H 09/05/23 10:29 Hgb A1c (Clinic) 7.5 % (4.0-6.0) H 09/05/23 11:03 Assessment & Plan Assessment & Plan (1) Type 2 diabetes mellitus with unspecified complications: Code(s): E11.8 - Type 2 diabetes mellitus with unspecified complications Plan: This is a 38-year-old black male with a history of type 2 diabetes being treated with U-500 insulin and Ozempic with fair glycemic control with known microvascular and macrovascular complications including retinopathy, neuropathy, nephropathy, CAD and CVA. Plan is to switch the Ozempic to Mounjaro 2.5 mg Q weekly which would provide greater efficacy terms of A1c lowering and weight loss. Went over side effects of Mounjaro including but not limited to nausea, vomiting rare risk of pancreatitis. Patient will follow up with production operations inspector. Patient was told report any hypoglycemia once switching to Mounjaro so that the U-500 insulin dose can be adjusted Orders: Orders Lipid Panel Today E11.8 - Type 2 diabetes mellitus with unspecified complications Microalbumin, Random (w Creat) Today E11.8 - Type 2 diabetes mellitus with unspecified complications AMB Hemoglobin A1c Today E11.8 - Type 2 diabetes mellitus with unspecified complications Medications: New tirzepatide (Mounjaro) 2.5 mg (0.5 mL) subcut QWEEK 4 weeks 2 mL 0RF Discontinued semaglutide (Ozempic) Discontinued Reason: Doctor's Order 2 mg (0.75 mL) subcut QWEEK 4 weeks 3 mL 3RF E11.8 - Type 2 diabetes mellitus with unspecified complications Coding Level of Care Code Est Pt Level 4 (82593) Diagnoses Type 2 diabetes mellitus with unspecified complications E11.8
[2023-09-05 10:33] LABS: Glucose, Whole Blood 122 mg/dL (60-115)
== END 2023-09-05 11:18 | disposition home or self-care (01) ==
PROVIDERS: PCP Physician Assistant; Visit Provider Internal Medicine Endocrinology, Diabetes & Metabolism
DX: E11.8 Type 2 diabetes mellitus with unspecified complications (principal)
CPT/HCPCS: 99214

== ENCOUNTER 2023-09-05 12:03 | Outpatient (AMB) | payer OTHER, SELFPAY ==
--- NOTE | 2023-09-05 12:28 | A.OFFVIS_ITS ---
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: 30 min/CONFIRMED Sand Caster Required: No Accompanied by: Self / Same As Patient Allergies sulfamethoxazole [From Bactrim] Adverse Reaction (Intermediate, Verified 09/05/23 10:32) Elevated renal functions trimethoprim [From Bactrim] Adverse Reaction (Intermediate, Verified 09/05/23 10:32) Elevated renal functions HPI Comprehensive Diabetes Asmnt Most Recent Diabetes Results: Microalb/Creat Ratio 384.7 ug/mg cr (<30) H 09/05/23 Cholesterol 104 mg/dL (<200) 09/05/23 HDL Cholesterol 24 mg/dL (>40) L 09/05/23 Triglycerides 130 mg/dL (<150) 09/05/23 Creatinine 1.53 mg/dL (0.5-1.4) H 09/05/23 Blood Urea Nitrogen 22 mg/dL (9-16) H 09/05/23 Sodium 140 mmol/L (135-145) 09/05/23 Potassium 4.3 mmol/L (3.3-5.1) 09/05/23 Chloride 108 mmol/L (96-108) 09/05/23 Carbon Dioxide 24 mmol/L (22-29) 09/05/23 Calcium 9.7 mg/dL (8.4-10.2) 09/05/23 AST 22 U/L (5-37) 09/05/23 ALT 28 U/L (0-40) 09/05/23 Total Protein 7.8 g/dL (6.5-8.0) 09/05/23 Albumin 3.5 g/dL (3.5-5.0) 09/05/23 [facility] Medical History (Updated 08/14/23 @ 10:56 by Stephanie Sue RN) Abnormal stress test History of stroke Morbid obesity NOLAN (obstructive sleep apnea) GERD (gastroesophageal reflux disease) HTN (hypertension) Right below-knee amputee Blind left eye Depression Neuropathy CVA (cerebral vascular accident) Sleep apnea Obesity Vitamin D deficiency HLD (hyperlipidemia) GERD (gastroesophageal reflux disease) Below knee amputation Type 2 diabetes mellitus Surgical History Hx of eye surgery History of amputation of right foot Family History Mother Diabetes Father Prostate cancer Paternal Aunt Diabetes Brother No problems noted. Brother No problems noted. Brother No problems noted. Brother No problems noted. Brother No problems noted. Sister No problems noted. Social History Housing: Apartment Alcohol intake: never Patient Tobacco Use Status: Never used Tobacco e-Cigarette/Vaping Use: Never Used Second Hand Smoke Exposure: No service: No Current occupational status: disabled Cognitive needs: Yes (walk, wheelchair) Hearing needs: No Vision needs: Yes (glasses) Assessment & Plan Assessment & Plan (1) Type 2 diabetes mellitus with unspecified complications: Code(s): E11.8 - Type 2 diabetes mellitus with unspecified complications Plan: Insulin/Incretin?Mimetic Education visit Patient is transitioning from [facility] to [facility] Patient Education: Patient was instructed and provided with demonstration of the following: Insulin action and Incretin Mimetics medication storage how to set up medication pen/or syringe and vial Handwashing insulin injection site rotation Site rotation recognizing hypertrophy Testing blood glucose Removing and disposing needle from insulin pen Safe disposal of sharps Target blood sugar Signs/ symptoms/treatment of hypoglycemia/hyperglycemia Patient verbalized understanding of education provided and was able to demonstrate proper use of inject into injection pillow Reviewed rule of 15s to treat glucose under 70 mg/dL All questions were answered and patient was advised to contact the office with any questions or concerns. Patient at visit to set up an insert Instructed patient sensors water proof you can shower, or swim do not submerge sensor in water for over 30 minutes Is sensor falls off cannot put back in you need to replace sensor, customer service number given to patient for sensor replacement Sensor placed on the back of R arm Patient left visit with sensor in warmup Reviewed how to interpret trend arrows Reminded patient that to check finger sticks if symptoms do not match sensor reading. Discussed lag time between finger stick and sensor data.? Instructed patient she should always keep blood glucometer for backup testing if needed Reviewed delay of CGM from fingersticks Reminded pt that if symptoms do not match sensor still needs to check fingersticks. Patient Instructions: Follow-up with certified adaptive physical educator in 2 months Coding Level of Care Code Est Pt Level 1 (88373) Diagnoses Type 2 diabetes mellitus with unspecified complications E11.8 Results AMB Hemoglobin A1c AMB Hemoglobin A1c 7.5 % Last Edit by YUNI Vu on 09/05/23 11:04
== END 2023-09-05 14:32 | disposition home or self-care (01) ==
LOC: HO.ENCR 12:03
PROVIDERS: PCP Physician Assistant; Visit Provider Registered Nurse Diabetes Educator
DX: E11.8 Type 2 diabetes mellitus with unspecified complications (principal)

== ENCOUNTER 2023-09-06 14:24 | Outpatient (AMB) | payer OTHER, SELFPAY ==
--- NOTE | 2023-09-06 14:25 | A.OFFVIS_ITS ---
Intake Vital Signs 09/06/23 14:25 Height 5 ft 9 in Intake Visit Reasons: OV-Right shoulder INJ 06/06/23 Intake Note: Jerome is a 38 year old left handed male who presents today with CODING COMPLIANCE MANAGER for a follow up of right shoulder pain. Patient reports his last injection of the Right shoulder on 06/06/2023 helped and would like to repeat the injection. Allergies sulfamethoxazole [From Bactrim] Adverse Reaction (Intermediate, Verified 09/06/23 14:49) Elevated renal functions trimethoprim [From Bactrim] Adverse Reaction (Intermediate, Verified 09/06/23 14:49) Elevated renal functions PFSH Medical History Abnormal stress test History of stroke Morbid obesity NOLAN (obstructive sleep apnea) GERD (gastroesophageal reflux disease) HTN (hypertension) Right below-knee amputee Blind left eye Depression Neuropathy CVA (cerebral vascular accident) Sleep apnea Obesity Vitamin D deficiency HLD (hyperlipidemia) GERD (gastroesophageal reflux disease) Below knee amputation Type 2 diabetes mellitus Surgical History Hx of eye surgery History of amputation of right foot Family History Mother Diabetes Father Prostate cancer Paternal Aunt Diabetes Brother No problems noted. Brother No problems noted. Brother No problems noted. Brother No problems noted. Brother No problems noted. Sister No problems noted. Social History Housing: Apartment Alcohol intake: never Patient Tobacco Use Status: Never used Tobacco e-Cigarette/Vaping Use: Never Used Second Hand Smoke Exposure: No service: No Current occupational status: disabled Cognitive needs: Yes (walk, wheelchair) Hearing needs: No Vision needs: Yes (glasses) Physical Exam Extrem Other: Right shoulder examination shows pain with range of motion, tenderness over his acromioclavicular joint, positive impingement signs, no instability Office Procedures Joint Injection/Drain Joint Injection/Drain Primary Site: right shoulder Prep: site was prepped using aseptic technique Injected: 40 mg of, DepoMedrol and 1% plain lidocaine Procedure: The patient tolerated the procedure well Coding 53279 - Large joint Procedure code (CPT) selection complete Assessment & Plan Assessment & Plan (1) Impingement of right shoulder: Code(s): M25.811 - Other specified joint disorders, right shoulder Plan Mr. Gómez presents with right shoulder pain due to impingement syndrome. I had a lengthy discussion with the patient regarding the treatment options. He wishes to hold off on surgery for as long as possible. I agree with this plan. The risks and benefits of a right shoulder cortisone injection were discussed at length with the patient. The patient wished to proceed. He tolerated the injection well. Will continue with his home stretching program. He will follow up with me on an as-needed basis should his symptoms not plateau at an unacceptable level over the next few months. Feel free to call me at any time should questions regarding his orthopedic management arise. I spent 22 minutes in reviewing the patient's records and imaging studies, seeing the patient and documenting in the medical record. Orders: Orders 2 AMB Joint Injection/Aspiration 09/06/23 M25.811 - Other specified joint disorders, right shoulder Coding Level of Care Code Est Pt Level 2 (83224) Diagnoses Impingement of right shoulder M25.811 CPT Codes Coding - 98942 Large joint: 29520 - Large joint ([id number])
== END 2023-09-06 15:07 | disposition home or self-care (01) ==
PROVIDERS: PCP Physician Assistant; Visit Provider Orthopaedic Surgery
DX: M25.811 Other specified joint disorders, right shoulder (principal)
CPT/HCPCS: 20610; 99213

== ENCOUNTER → 2023-09-06 14:24 | Outpatient (BNVA) | payer OTHER, SELFPAY | PROVIDERS: PCP Physician Assistant; Visit Provider Orthopaedic Surgery | DX: M25.811 Other specified joint disorders, right shoulder (principal) | CPT/HCPCS: 20610; 99212; J1020 ==

== ENCOUNTER 2023-09-10 14:30 | Outpatient (AMB) | payer OTHER, SELFPAY ==
[2023-09-10 15:01] VITALS: BP 130/70; PULSE 95; O2SAT 98
--- NOTE | 2023-09-10 15:01 | A.OFFVIS_ITS ---
Intake Vital Signs 09/10/23 15:01 Height 5 ft 9 in BP 130/70 Blood Pressure Location Lt brachial Position Sitting Pulse 95 Pulse Source Pulse Oximeter Pulse Oximetry (%) 98 Oxygen Delivery Method Room Air Intake Visit Reasons: Obstructive sleep apnea Intake Note: Call [facility] to help get machine to have internet capabilities, receiving supplies okay, feel good, using machine everynight and using c-pap every night, cannot sleep with out it,. Network Management Specialist Required: No Allergies sulfamethoxazole [From Bactrim] Adverse Reaction (Intermediate, Verified 09/10/23 15:20) Elevated renal functions trimethoprim [From Bactrim] Adverse Reaction (Intermediate, Verified 09/10/23 15:20) Elevated renal functions Medication List - Last Reconciled 09/10/23 by Malu Anderson MD acetaminophen ER (Mapap Arthritis Pain) 1,300 mg (2 x 650 mg) PO Q8H PRN 90 days alcohol swabs 1 pad topical QID aspirin (Adult Aspirin Regimen) 81 mg PO DAILY 90 days atorvastatin 80 mg PO BEDTIME 30 days blood pressure kit-extra large As directed blood sugar diagnostic (FreeStyle Lite Strips) As directed blood sugar diagnostic (FreeStyle Lite Strips) USE TO TEST FINGER STICK BLOOD SUGAR 4 (FOUR) TIMES DAILY blood-glucose sensor (iLyngo G7 Sensor device) As directed change every 10 days carvedilol 25 mg PO BID chair, wheel (Wheel chair) lifetime use cholecalciferol (vitamin D3) (Vitamin D3) 25 mcg PO DAILY duloxetine 30 mg PO BID famotidine 20 mg PO DAILY 30 days ferrous sulfate 325 mg PO DAILY furosemide 40 mg (2 x 20 mg) PO DAILY 30 days gabapentin 800 mg PO TID 30 days hydralazine 100 mg PO BID incontinence pad, liner, disp As directed insulin regular hum U-500 conc (Humulin R U-500 (Conc) Insulin Kwikpen) 40 units (0.08 mL) subcut TID 30 days lancets As directed latex gloves (Latex Gloves, Large) As directed lisinopril 1 tab PO DAILY melatonin 10 mg PO DAILY miscellaneous medical supply 1 ea miscellaneous ONCE 4 weeks miscellaneous medical supply 1 ea miscellaneous .once per week 4 weeks miscellaneous medical supply 1 ea miscellaneous DAILY 90 days nifedipine ER 90 mg PO DAILY 90 days omeprazole 40 mg PO DAILY 90 days pantoprazole 80 mg (2 x 40 mg) PO DAILY 90 days pen needle, diabetic As directed spironolactone 25 mg PO DAILY 90 days tirzepatide (Mounjaro) 2.5 mg (0.5 mL) subcut QWEEK 4 weeks tramadol 50 mg PO TID PRN 30 days Do you need a note to return to daycare/school/sports/work: No HPI Obstructive sleep apnea HPI Details 38 years old gentleman with super morbid obesity. And multiple comorbidities. He comes today for follow-up on his obstructive sleep apnea. He uses CPAP regularly every night and a defect cannot sleep without the CPAP. He has the a Cassi model, which is not transmitting the data for compliance . We have call the DME supplier and they have confirms that he get supplies on time and according to their information he is very compliant. [facility] Medical History Abnormal stress test History of stroke Morbid obesity NOLAN (obstructive sleep apnea) GERD (gastroesophageal reflux disease) HTN (hypertension) Right below-knee amputee Blind left eye Depression Neuropathy CVA (cerebral vascular accident) Sleep apnea Obesity Vitamin D deficiency HLD (hyperlipidemia) GERD (gastroesophageal reflux disease) Below knee amputation Type 2 diabetes mellitus Surgical History Hx of eye surgery History of amputation of right foot Family History Mother Diabetes Father Prostate cancer Paternal Aunt Diabetes Brother No problems noted. Brother No problems noted. Brother No problems noted. Brother No problems noted. Brother No problems noted. Sister No problems noted. Social History Housing: Apartment Alcohol intake: never Patient Tobacco Use Status: Never used Tobacco e-Cigarette/Vaping Use: Never Used Second Hand Smoke Exposure: No service: No Current occupational status: disabled Cognitive needs: Yes (walk, wheelchair) Hearing needs: No Vision needs: Yes (glasses) Review of Systems Const All systems reviewed & are unremarkable except as noted in HPI and below Reports snoring (Much less since he is using CPAP) Eyes Reports no additional complaints ENT Reports no additional complaints Card Denies chest pain, Denies irregular heart rhythm and Denies leg edema Resp Reports no additional complaints, Denies cough, Reports snoring (Much less since he is using CPAP) and Denies wheezing GI Reports heartburn (Being treated for GERD) Reports no additional complaints Musc Reports abnormal gait (Non ambulatory mostly in the powered wheelchair), Reports back pain and Reports muscle weakness Skin/Breast Reports system reviewed and no additional complaints, except as documented Neuro Reports abnormal gait (Non ambulatory mostly in the powered wheelchair) Psych Reports no additional complaints Aller/Immun Denies wheezing Physical Exam Vital Signs: Last Vital Signs Pulse 95 09/10/23 15:01 BP 130/70 09/10/23 15:01 Pulse Ox 98 09/10/23 15:01 Oxygen Delivery Method Room Air 09/10/23 15:01 He is obviously morbidly obese, with a round face. He is in powered wheelchair, Const General: comfortable, no acute distress, alert and awake Orientation/consciousness: patient oriented x3 HEENT Head: Yes normal to inspection General nose exam: No nasal polyps present and No nasal discharge present Face and sinus: Yes sinuses nontender Mouth: oropharynx abnormals (Very crowded and narrow oropharynx, Mallampati class 4) Throat: Yes posterior oropharynx normal Eyes General: appearance normal, both eyes and all related structures Neck Neck: Yes normal visual inspection, Yes no lymphadenopathy, Yes trachea midline and Yes no JVD Thyroid: Thyroid normal Chest Chest palpation & inspection: normal inspection of the chest, normal palpation of entire chest wall and no tenderness Resp Other: Percussion note is not perceptible, breath sounds are distant because of the thick chest wall. But no wheezes or rhonchi are heard. Cardio Palpation: PMI not normal (Not palpable) Rate: regular rate Rhythm: regular rhythm Heart sounds: no gallops and no murmurs Peripheral pulses: Peripheral pulses 2+ throughout GI Palpation (GI): Soft to palpation, nontender, No hepatosplenomegaly present, no masses and Other GI palpation findings present (Abdomen grossly obese and protuberant) Auscultation: normal bowel sounds Back/Spine/Pelvis Thoracic/Lumbar Spine: thoracic and lumbar spine normal to inspection and thoraco-lumbar ROM limited Skin General skin exam: no rashes or lesions noted Neuro General: patient oriented x3, No gait normal (Non ambulatory) and no focal motor deficits Cranial nerves: Yes CN's II-XII intact bilaterally Extrem Other: Right leg amputee. General: Yes normal to inspection, Yes no clubbing, cyanosis or edema, Yes no calf tenderness and Yes edema (PUFFINESS AROUND THE LEFT ANKLE, WITH QUESTIONAB LE STASIS EDEMA.) Psych Appearance: grossly normal and well kempt Speech and movement: Normal speech and movement present Assessment & Plan Assessment & Plan (1) Morbid obesity: Comment: PATIENT REMAINS MORBIDLY OBESE, COULD NOT GET HIS EXACT WEIGHT BECAUSE HE IS NOT ABLE TO STAND. PATIENT IS NO LONGER IN THE WEIGHT MANAGEMENT PROGRAM. Code(s): E66.01 - Morbid (severe) obesity due to excess calories Plan: AGAIN DISCUSSED WITH HIM AND URGED FOR HIM TO CALL AND MAKE APPOINTMENT WITH THE WEIGHT MANAGEMENT PROGRAM. (2) NOLAN (obstructive sleep apnea): Comment: PATIENT HAS LONG-STANDING HISTORY OF OBSTRUCTIVE SLEEP APNEA, EXPECTED FROM HIS MORBID OBESITY. SLEEP STUDY CONFIRMED PRESENCE OF MODERATELY SEVERE NOLAN, WITH MINIMAL NOCTURNAL HYPOXEMIA. PATIENT HAS BEEN ON CPAP THERAPY WITH AUTOPAP MODE ( 6-20 CMs ) COMPLIANCE DATA NOT AVAILABLE TODAY BUT THE PATIENT CLAIMS THAT HE IS USING IT REGULARLY EVERY NIGHT, AND SLEEPS GOOD. CLINICALLY HE IS DEFINITELY BENEFITTING FROM THE USE OF CPAP . Code(s): G47.33 - Obstructive sleep apnea (adult) (pediatric) Plan: ADVISED TO CONTINUE USING IT EVERY NIGHT REGULARLY. Coding Level of Care Code Est Pt Level 3 (66665) Diagnoses Morbid obesity E66.01 NOLAN (obstructive sleep apnea) G47.33
== END 2023-09-10 15:20 | disposition home or self-care (01) ==
PROVIDERS: PCP Physician Assistant; Visit Provider Internal Medicine
DX: E66.01 Morbid (severe) obesity due to excess calories (principal); G47.33 Obstructive sleep apnea (adult) (pediatric)
CPT/HCPCS: 99213

== ENCOUNTER → 2023-09-10 14:30 | Outpatient (BNVA) | payer OTHER, SELFPAY | PROVIDERS: PCP Physician Assistant; Visit Provider Internal Medicine | DX: G47.33 Obstructive sleep apnea (adult) (pediatric) (principal); E66.01 Morbid (severe) obesity due to excess calories | CPT/HCPCS: 99212 ==

== ENCOUNTER 2023-09-17 13:41 | Outpatient (REF) | payer OTHER, SELFPAY ==
--- NOTE | ~2023-09-17 | US_ITS ---
EXAMINATION: US EXTRACRANIAL CAROTID DUPLEX, BILATERAL CLINICAL INFORMATION: Other specified symptoms and signs involving the circulatory anatomy. COMPARISON: None available. TECHNIQUE: Real-time ultrasound and Doppler techniques (integrating B-mode 2-D vascular images, Doppler spectral analysis and color-flow Doppler imaging) were utilized to interrogate the extracranial carotid arteries, the vertebral arteries and proximal subclavian arteries bilaterally. The degree of stenosis is determined by criteria similar to NASCET. FINDINGS: Right Side: 1. There is no atherosclerotic plaque seen in the bifurcation/proximal ICA region. 2. The common carotid artery PSV proximally is 83 cm/s and distally 74 cm/s. 3. The proximal internal carotid artery velocities are 52 cm/s systolic and 15 cm/s diastolic. 4. The proximal external carotid artery PSV is 74 cm/s. 5. The vertebral artery shows antegrade flow. 6. The subclavian artery waveforms are normal. Left Side: 1. There is no atherosclerotic plaque seen in the bifurcation/proximal ICA region. 2. The common carotid artery PSV proximally is 129 cm/s and distally 80 cm/s. 3. The proximal internal carotid artery velocities are 53 cm/s systolic and 13 cm/s diastolic. 4. The proximal external carotid artery PSV is 72 cm/s. 5. The vertebral artery shows antegrade flow. 6. The subclavian artery waveforms are normal. US/US carotid duplex BI IMPRESSION: 1. RIGHT: Normal right internal carotid artery without atherosclerotic plaque or hemodynamically significant stenosis. 2. LEFT: Normal left internal carotid artery without atherosclerotic plaque or hemodynamically significant stenosis.
== END 2023-09-17 13:42 | disposition home or self-care (01) ==
LOC: HO.US 13:41
PROVIDERS: PCP Physician Assistant; Visit Provider Surgery Vascular Surgery
DX: R09.89 Other specified symptoms and signs involving the circulatory and respiratory systems (principal)
CPT/HCPCS: 93880

== ENCOUNTER 2023-09-24 14:38 | Outpatient (AMB) | payer OTHER, SELFPAY ==
[2023-09-24 14:43] VITALS: BP 118/76; PULSE 95; O2SAT 98
--- NOTE | 2023-09-24 14:43 | MHC.PC.OV ---
Vital Signs 09/24/23 14:43 Height 5 ft 9 in BP 118/76 Blood Pressure Location Lt brachial Position Sitting Pulse 95 Pulse Source Pulse Oximeter Pulse Oximetry (%) 98 Oxygen Delivery Method Room Air Intake Visit Reasons: Type 2 diabetes hypertension and phantom limb pain Transmission Mechanic Required: No Accompanied by: Self / Same As Patient Allergies sulfamethoxazole [From Bactrim] Adverse Reaction (Intermediate, Verified 09/24/23 14:55) Elevated renal functions trimethoprim [From Bactrim] Adverse Reaction (Intermediate, Verified 09/24/23 14:55) Elevated renal functions Medication List - Last Reconciled 09/24/23 by Clay Guevara PA-C acetaminophen ER 1,300 mg (2 x 650 mg) PO Q8H PRN 90 days alcohol swabs 1 pad topical QID aspirin (Adult Aspirin Regimen) 81 mg PO DAILY 90 days atorvastatin 80 mg PO BEDTIME 30 days blood pressure kit-extra large As directed blood sugar diagnostic (FreeStyle Lite Strips) As directed blood sugar diagnostic (FreeStyle Lite Strips) USE TO TEST FINGER STICK BLOOD SUGAR 4 (FOUR) TIMES DAILY blood-glucose sensor (netFactor G7 Sensor device) As directed change every 10 days carvedilol 25 mg PO BID chair, wheel (Wheel chair) lifetime use cholecalciferol (vitamin D3) (Vitamin D3) 25 mcg PO DAILY duloxetine 30 mg PO BID famotidine 20 mg PO DAILY 30 days ferrous sulfate 325 mg PO DAILY furosemide 40 mg (2 x 20 mg) PO DAILY 30 days gabapentin 800 mg PO TID 30 days hydralazine 100 mg PO BID incontinence pad, liner, disp As directed insulin regular hum U-500 conc (Humulin R U-500 (Conc) Insulin Kwikpen) 40 units (0.08 mL) subcut TID 30 days lancets As directed latex gloves (Latex Gloves, Large) As directed lisinopril 1 tab PO DAILY melatonin 10 mg PO DAILY miscellaneous medical supply 1 ea miscellaneous ONCE 4 weeks miscellaneous medical supply 1 ea miscellaneous .once per week 4 weeks miscellaneous medical supply 1 ea miscellaneous DAILY 90 days nifedipine ER 90 mg PO DAILY 90 days omeprazole 40 mg PO DAILY 90 days pantoprazole 80 mg (2 x 40 mg) PO DAILY 90 days pen needle, diabetic As directed spironolactone 25 mg PO DAILY 90 days tirzepatide (Mounjaro) 2.5 mg (0.5 mL) subcut QWEEK 4 weeks tramadol 50 mg PO TID PRN 30 days Tobacco use date assessed: 09/24/23 Dental Screening Dental Screen Date: 09/24/23 Did you have a dental visit in the last 12 months?: Yes Did you have a dental problem in the last 6 months where you did not have access to dental care?: No Was dental information given to patient?: Patient has dentist HPI Type 2 diabetes hypertension and phantom limb pain HPI Details Patient a 38-year-old male here today for follow-up visit. ? Patient has a past medical history significant for DMII, HTN, HLD, Obesity, CVA, CKD , Amputee ( Right foot), CHF. Shoulder pain: Has followed up with Orthopedics and received cortisone injections with significantly reduced his shoulder pain. He did go over his medication list in reported he does not feel pantoprazole affective thus discontinued. Unclear as to why he is taking iron supplementation thus will put this on hold. Also he would like to reduce or stop taking Aldactone as he feels he is taking too many blood pressure medication. .. CHRONIC MEDICAL CONDITION--> Obesity:? He is currently enrolled in the weight management program here at [place] and has gotten cardiac evaluation and clearance for surgery.? ? Has been having a difficult time losing weight.? He has stopped following up with weight management and interested reestablishing care. ? .. ? DMII: He was followed by Occupational Analyst here in [place].? Has recently transition to [facility] from [facility]. He does report some dietary indiscretion as of lately. He ?Had a DM nonhealing foot ulcer in 2017 and needed an amputation.? Patient reports he is still awaiting a right lower extremity prosthesis so he can be come more active.? He does report gaining weight due to not being physically active. .. Below-knee amputation right side: Has phantom limb pain thus uses tramadol and gabapentin which is fairly effective. Has a prosthetic and is due for a new prothetic .. GERD:? Currently taking omeprazole in the morning and famotidine at night. .. Obstructive sleep apnea:? He now has a CPAP machine which he uses a nightly basis with good effect.? He follows a certified health education specialist. ? .. ? HTN:? Pressures have been better controlled with the addition of carvedilol 25 mg b.i.d..? Patient denies any chest discomfort, headaches, palpitations. ? .. ? CKD stage 3 - Followed by signal operator linguist? whom is managing blood pressure meds. He has been set up for US of his kidney in Aug 2020. Most recent microalbumin elevated.? Laboratory Tests 08/14/22 09/05/23 09/05/23 15:50 11:36 11:52 RBC 3.73 L Hgb 11.0 L Creatinine 1.59 H 1.53 H Fasting Glucose Cholesterol LDL Cholesterol, C alc Urine Microalbumin 469.0 09/05/23 11:52 RBC Hgb Creatinine Fasting Glucose 122 H Cholesterol 104 LDL Cholesterol, C alc 54 Urine Microalbumin PFS Medical History Abnormal stress test History of stroke Morbid obesity NOLAN (obstructive sleep apnea) GERD (gastroesophageal reflux disease) HTN (hypertension) Right below-knee amputee Blind left eye Depression Neuropathy CVA (cerebral vascular accident) Sleep apnea Obesity Vitamin D deficiency HLD (hyperlipidemia) GERD (gastroesophageal reflux disease) Below knee amputation Type 2 diabetes mellitus Surgical History Hx of eye surgery History of amputation of right foot Family History Mother Diabetes Father Prostate cancer Paternal Aunt Diabetes Brother No problems noted. Brother No problems noted. Brother No problems noted. Brother No problems noted. Brother No problems noted. Sister No problems noted. Social History Housing: Apartment Alcohol intake: never Patient Tobacco Use Status: Never used Tobacco e-Cigarette/Vaping Use: Never Used Second Hand Smoke Exposure: No service: No Current occupational status: disabled Cognitive needs: Yes (walk, wheelchair) Hearing needs: No Vision needs: Yes (glasses) Questionnaire PHQ-9 Over the last 2 weeks, how often have you been bothered by any of the following problems? 1. Little interest or pleasure in doing things: not at all 2. Feeling down, depressed, or hopeless: not at all 3. Trouble falling or staying asleep, or sleeping too much: not at all 4. Feeling tired or having little energy: not at all 5. Poor appetite or overeating: not at all 6. Feeling bad about yourself - or that you are a failure or have let yourself or your family down: not at all 7. Trouble concentrating on things, such as reading the newspaper or watching television: not at all 8. Moving or speaking so slowly that other people could have noticed. Or the opposite - being so fidgety or restless that you have been moving around a lot more than usual: not at all 9. Thoughts that you would be better off or of hurting yourself in some way: not at all Total score: 0 Depression Screening Interpretation: Negative Depression Screening Done: Yes 80174 - PHQ-9 Billing: Yes Source: Developed by Drs. Flaco Tovar, Muna Baumann, Satnam Pendleton and colleagues, with an educational carmelo from [employer] Thrive Questionnaire Date Thrive assessed: 09/24/23 I am a: Patient What is your living situation today?: I have a steady place to live Within the past 12 months, did the food you bought not last and you didn't have the money to get more?: Never true Within the past 12 months, did you worry whether your food would run out before you got money to buy more?: Never true Do you have trouble paying for medicines?: No Do you have trouble getting transportation to medical appointments?: No Do you have trouble paying your heating and electricity bill?: No Do you have trouble taking care of your child, family member or friend?: No Do you have trouble with day-to-day activities such as bathing, preparing meals, shopping, managing finances, etc.?: No Are you currently unemployed and looking for a job?: No Are you interested in more education?: No Please select the resources that you would like help with: None Currently or been in a relationship where the following occur: no concerns reported THRIVE Score: 0 AUDIT C Alcohol Use Questionnaire (AUDIT-C) 1. How often do you have a drink containing alcohol?: Never Total Score: 0 Score Reviewed/Action Taken: No KAMALA-7 AMB Questionnaire KAMALA-7 Date KAMALA - 7 assessed: 09/24/23 Feeling nervous, anxious, or on edge: 0 = Not at all Not being able to stop or control worryin = Not at all Worrying too much about different things: 0 = Not at all Trouble relaxin = Not at all Being so restless that it is hard to sit still: 0 = Not at all Becoming easily annoyed or irritable: 0 = Not at all Feeling afraid as if something awful might happen: 0 = Not at all Total KAMALA-7 score (0-4 normal; 5-9 mild; 10-14 moderate; 15-21 severe): 0 Source: Developed by Drs. Flaco Tovar, Muna Baumann, Satnam Pendleton and colleagues, with an educational carmelo from [employer] KAMALA-7 Assessment Billing KAMALA-7 Assessment Tool: KAMALA-7 Assessment 01190 Review of Systems Const Denies headache(s) Eyes Denies loss of vision ENT Denies vertigo, Denies dizziness, Denies headache(s) and Denies sore throat Card Denies chest pain, Denies leg edema and Denies lightheadedness Resp Denies cough, Denies hemoptysis and Denies wheezing GI Denies abdominal pain, Denies melena, Denies constipation, Denies diarrhea and Denies vomiting Denies dysuria, Denies urinary frequency and Denies urinary urgency Musc Denies arthralgias, Denies joint swelling, Denies numbness and Denies tingling Neuro Denies Abnormal speech present, Denies behavioral changes, Denies vertigo, Denies dizziness, Denies headache(s), Denies loss of vision, Denies memory loss, Denies numbness and Denies tingling Psych Denies anxiety, Denies behavioral changes, Denies depression, Denies memory loss and Denies panic attacks Eugenio/Lymph Denies easy bleeding and Denies easy bruising Aller/Immun Denies wheezing Physical exam (Primary Care) Vital Signs: Last Vital Signs Pulse 95 09/24/23 14:43 BP 118/76 09/24/23 14:43 Pulse Ox 98 09/24/23 14:43 Oxygen Delivery Method Room Air 09/24/23 14:43 Tobacco/Smoking Status: Tobacco use Status Tobacco use date assessed 09/24/23 09/24/23 14:53 Patient Tobacco Use Status Never used Tobacco 09/24/23 14:43 e-Cigarette/Vaping Use Never Used 09/24/23 14:43 PHQ-9: PHQ-9 Score PHQ-9: Total score 0 09/24/23 14:52 Depression Screening Interpretation: Negative Thrive Assessment: Date of Thrive Assessment Date Thrive assessed 09/24/23 09/24/23 14:53 Currently or been in a relationship where the following occur: no concerns reported Const General: healthy appearing, no acute distress, alert and awake Nutritional Appearance: well nourished Orientation/consciousness: oriented to person, oriented to place and oriented to time HENMT Ears: TM's normal bilaterally General nose exam: Normal nasal mucous membranes and turbinates present Eyes Conjunctivae: conjunctivae normal Sclerae: sclerae normal Pupils: Equal, round and reactive pupils present Neck Neck: Yes no lymphadenopathy and Yes no JVD Thyroid: Thyroid normal Carotids: no bruits Resp Effort & Inspection: normal respiratory effort and not tachypneic Auscultation: no crackles, no rales, no rhonchi and no wheezes Cardio Rate: regular rate Rhythm: regular rhythm Heart sounds: no murmurs and normal S1 and S2 GI Palpation (GI): Soft to palpation, nontender, no hepatomegaly and no splenomegaly Auscultation: normal bowel sounds Skin General skin exam: no rashes or lesions noted and dry skin Neuro General: oriented to person, oriented to place and oriented to time Cranial nerves: Yes Equal, round and reactive pupils present Speech: No Abnormal speech present Gait exam (Neuro): Normal gait present Motor exam (neuro): no tremor noted Extrem Right upper extremity: full ROM Left upper extremity: full ROM Right lower extremity: full ROM and edema Left lower extremity: full ROM and edema Ankle/foot/toe images: 1. RIGHT BELOW-KNEE AMPUTATION Psych Mental Status: mental status grossly normal Speech and movement: Normal speech and movement present Affect: normal affect Attitude: cooperative Thought process: Normal thought process present Assessment and Plan Assessment & Plan (1) Type 2 diabetes mellitus with unspecified complications: Code(s): E11.8 - Type 2 diabetes mellitus with unspecified complications Plan: Patient's type 2 diabetes seems to be well controlled now that he has at continues glucose monitor. He is on high-dose insulin therapy and continues follow-up with his senior j2ee developer. HAS TRANSITIONED TO [place]. Goal A1c is to be below 7.0 (2) Phantom pain: Code(s): G54.6 - Phantom limb syndrome with pain Plan: Patient reports his phantom limb pain has been worsened late. He does report gabapentin work some though. (3) Essential hypertension: Code(s): I10 - Essential (primary) hypertension Plan: Patient reports blood pressures have been stable. Continues on multiple medications for his blood pressure at this time. Goal blood pressure be below 140/90 He is questioning why the using Aldactone thus place this on hold. Advised to monitor for increased swelling and monitor blood pressure readings (4) Morbidly obese: Code(s): E66.01 - Morbid (severe) obesity due to excess calories Plan: He is considering bariatric surgery still. He was followed by a [place] bariatric program though has not had any follow-up in unfortunately has gained his weight back. He is consider restarting program (5) CKD (chronic kidney disease) stage 3, GFR 30-59 ml/min: Code(s): N18.30 - Chronic kidney disease, stage 3 unspecified Qualifiers: Chronic kidney disease stage 3 subtype: unspecified whether 3a or 3b Qualified Code(s): N18.30 - Chronic kidney disease, stage 3 unspecified Plan: Patient continues to follow nephrology. Most recent creatinine 1.5, continues to have microalbuminuria. Will continue to avoid nephrotoxins. (6) Amputated right leg: Code(s): S88.911A - Complete traumatic amputation of right lower leg, level unspecified, initial encounter Plan: Continues to be mostly wheelchair-bound, does have prosthetic for his right lower extremity. He has difficulty with using his prosthetic as he has extra skin and muscle in his stump that causes his prosthetic not to fit right. He does report having some phantom limb pain as of late which she reports gabapentin is helpful though feels he needs higher dose. (7) CVA (cerebral vascular accident): Code(s): I63.9 - Cerebral infarction, unspecified Qualifiers: CVA mechanism: embolism Precerebral and cerebral artery: unspecified cerebral artery Qualified Code(s): I63.40 - Cerebral infarction due to embolism of unspecified cerebral artery Plan: Secondary to his comorbidities hypertension type 2 diabetes. Has not had any stroke symptoms. Does have deficit on right side. (8) Right shoulder pain: Code(s): M25.511 - Pain in right shoulder Qualifiers: Chronicity: chronic Qualified Code(s): M25.511 - Pain in right shoulder; G89.29 - Other chronic pain Plan: Has received cortisone injections which have been very effective on reducing his shoulder pain (9) Morbid obesity: Comment: PATIENT REMAINS MORBIDLY OBESE, COULD NOT GET HIS EXACT WEIGHT BECAUSE HE IS NOT ABLE TO STAND. PATIENT IS NO LONGER IN THE WEIGHT MANAGEMENT PROGRAM. Code(s): E66.01 - Morbid (severe) obesity due to excess calories Plan: Patient does understand he is morbidly obese. He has been in and out of weight management programs though has found it difficult to lose weight. He does seem to lack somewhat motivation. He does admit he has have a eating problem and will try to work on his eating habits. (10) Constipation: Code(s): K59.00 - Constipation, unspecified Qualifiers: Constipation type: unspecified constipation type Qualified Code(s): K59.00 - Constipation, unspecified Plan: Reports having a bowel movement every 4-5 days. Will supply patient with MiraLax powder to use for constipation. Will place hold on iron supplement could be causing constipation. He does have slightly low hemoglobin though likely has anemia of chronic disease. Will check iron studies Orders: Orders IRON PROFILE Today D50.9 - Iron deficiency anemia, unspecified, K21.9 - Gastro-esophageal reflux disease without esophagitis Referrals Gastroenterology Referral K21.9 - Gastro-esophageal reflux disease without esophagitis Ophthalmology Referral E11.8 - Type 2 diabetes mellitus with unspecified complications Medications: New polyethylene glycol 3350 (Miralax) Makes 17 g packet in to 8 oz of water and drink daily 17 grams PO DAILY 30 days 30 ea 3RF Constipation K59.00 - Constipation, unspecified Changed From acetaminophen ER (Mapap Arthritis Pain) 1,300 mg (2 x 650 mg) PO Q8H 90 days PRN 180 tabs 3RF pain G54.6 - Phantom limb syndrome with pain, S88.119A - Complete traumatic amputation at level between knee and ankle, unspecified lower leg, initial encounter To acetaminophen ER 1,300 mg (2 x 650 mg) PO Q8H 90 days PRN 180 tabs 3RF pain G54.6 - Phantom limb syndrome with pain, S88.119A - Complete traumatic amputation at level between knee and ankle, unspecified lower leg, initial encounter Refilled carvedilol 25 mg PO BID 180 tabs 2RF Discontinued pantoprazole Discontinued Reason: Doctor's Order 80 mg (2 x 40 mg) PO DAILY 90 days 180 tabs 2RF K21.9 - Gastro-esophageal reflux disease without esophagitis On Hold ferrous sulfate Hold Comment: Doctor's Order 325 mg PO DAILY 30 tabs 6RF spironolactone Hold Comment: Doctor's Order 25 mg PO DAILY 90 days 90 tabs 2RF I10 - Essential (primary) hypertension Coding Level of Care Code Est Pt Level 4 (51378) Diagnoses Type 2 diabetes mellitus with unspecified complications E11.8 Phantom pain G54.6 Essential hypertension I10 Morbidly obese E66.01 Stage 3 chronic kidney disease, unspecified whether stage 3a or 3b CKD N18.30 Chronic kidney disease stage 3 subtype: unspecified whether 3a or 3b Amputated right leg S88.911A Cerebrovascular accident (CVA) due to embolism of cerebral artery I63.40 CVA mechanism: embolism Precerebral and cerebral artery: unspecified cerebral artery Chronic right shoulder pain M25.511; G89.29 Chronicity: chronic Constipation, unspecified constipation type K59.00 Constipation type: unspecified constipation type Additional Codes KAMALA-7 Assessment Billing - KAMALA-7 Assessment Tool: KAMALA-7 Assessment 66081 ([id number])
== END 2023-09-24 15:17 | disposition home or self-care (01) ==
PROVIDERS: PCP Physician Assistant; Visit Provider Physician Assistant
DX: E11.8 Type 2 diabetes mellitus with unspecified complications (principal); G54.6 Phantom limb syndrome with pain; E66.01 Morbid (severe) obesity due to excess calories; N18.30 Chronic kidney disease, stage 3 unspecified; S88.911A Complete traumatic amputation of right lower leg, level unspecified, initial encounter; I63.40 Cerebral infarction due to embolism of unspecified cerebral artery; I10 Essential (primary) hypertension; M25.511 Pain in right shoulder; G89.29 Other chronic pain; K59.00 Constipation, unspecified
CPT/HCPCS: 99214

== ENCOUNTER 2023-10-22 08:58 | Outpatient (REF) | payer OTHER, SELFPAY ==
--- NOTE | ~2023-10-22 | US_ITS ---
EXAMINATION: US LOWER EXTREMITY VENOUS (REFLUX EXAM), LEFT CLINICAL INDICATION: Varicose veins of left lower extremity with inflammation COMPARISON: Arterial duplex of the left lower extremity dated 08/30/2023. TECHNIQUE: Color flow triplex imaging and compression Doppler was performed to evaluate both the deep and the superficial systems of the left lower extremity. To evaluate the superficial system, the examination was performed in the upright position. Color-flow Doppler ultrasound and compression ultrasound were utilized. In addition, maneuvers were utilized to demonstrate reflux. FINDINGS: 1. DEEP VENOUS ULTRASOUND OF THE LEFT LOWER EXTREMITY: Common Femoral Vein: Compressible, normal respiratory variation and augmented flow. Femoral Vein: Compressible, normal color flow and augmentation. Popliteal Vein: Compressible, normal augmentation. Deep Reflux: There is no evidence of reflux in the deep system in either the common femoral vein, superficial femoral or the popliteal vein. There is no evidence of a Adair's cyst. 2. SUPERFICIAL ULTRASOUND WITH DOPPLER OF LEFT LOWER EXTREMITY: GREAT SAPHENOUS VEIN: Saphenofemoral Junction: 0.8 cm; Reflux: 0 ms Proximal Thigh: 0.5 cm; Reflux: 0 ms Mid Thigh: 0.4 cm; Reflux: 0 ms Above Knee: 0.5 cm; Reflux: 0 ms At Knee: 0.5 cm; Reflux: 0 ms Below Knee: 0.3 cm; Reflux: 1108 ms Mid Calf: 0.4 cm; Reflux: 0 ms Ankle: 0.3 cm; Reflux: 924 ms DUPLICATED MEDIAL GREAT SAPHENOUS VEIN: Saphenofemoral Junction: 0.4 cm; Reflux: 0 ms Mid Thigh: 0.3 cm; Reflux: 0 ms DUPLICATED LATERAL GREAT SAPHENOUS VEIN: Saphenofemoral Junction: 0.3 cm; Reflux: 0 ms Mid Thigh: 0.4 cm; Reflux: 0 ms SMALL SAPHENOUS VEIN: Saphenopopliteal Junction: 0.7 cm; Reflux: 1524 ms Proximal: 0.4 cm; Reflux: 1164 ms Distal: 0.3 cm; Reflux: 1388 ms VEIN OF GIACOMINI: Size: NA Reflux: NA PERFORATORS: Location: Mid calf; Size: 0.2; Reflux: 0 Location: Distal calf; Size: 0.3; Reflux: 0 Location: Midthigh; Size: 0.3; Reflux: 0 VARICOSITIES: Location: Proximal calf; Size: 0.3; Reflux: 0 US/US venous duplex LE LT IMPRESSION: 1. No evidence of deep venous thrombosis or reflux in the left common femoral vein, femoral vein, and popliteal vein. 2. Significant segmental reflux of the left great saphenous vein below the knee measuring up to 1108 ms. 3. Significant reflux in the small saphenous vein measuring up to 1524 ms.
== END 2023-10-22 08:59 | disposition home or self-care (01) ==
LOC: HO.US 08:58
PROVIDERS: PCP Physician Assistant; Visit Provider Surgery Vascular Surgery
DX: I83.12 Varicose veins of left lower extremity with inflammation (principal)
CPT/HCPCS: 93971

== ENCOUNTER 2023-10-25 13:47 | Outpatient (AMB) | payer OTHER, SELFPAY ==
--- NOTE | 2023-10-25 13:54 | MHC.OFFVIS ---
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: s/p US 10/04/2023 Intake Note: Patient presents for follow up 10/21 US, Carotid US 09/17 and arterial US 08/30. He has swelling in left leg that is of great concern to him. There is no pain in the left leg. Accompanied by: Self / Same As Patient Allergies sulfamethoxazole [From Bactrim] Adverse Reaction (Intermediate, Verified 09/24/23 14:55) Elevated renal functions trimethoprim [From Bactrim] Adverse Reaction (Intermediate, Verified 09/24/23 14:55) Elevated renal functions HPI s/p US 10/04/2023 HPI Details Very pleasant 38-year-old gentleman who presents for follow-up regarding his lower extremities. He is wheelchair-bound and has extremely edematous legs. He has undergone carotid testing arterial testing and venous testing. He now presents for follow-up. The left leg continues to be a source of concern for him. [facility] Medical History Abnormal stress test History of stroke Morbid obesity NOLAN (obstructive sleep apnea) GERD (gastroesophageal reflux disease) HTN (hypertension) Right below-knee amputee Blind left eye Depression Neuropathy CVA (cerebral vascular accident) Sleep apnea Obesity Vitamin D deficiency HLD (hyperlipidemia) GERD (gastroesophageal reflux disease) Below knee amputation Type 2 diabetes mellitus Surgical History Hx of eye surgery History of amputation of right foot Family History Mother Diabetes Father Prostate cancer Paternal Aunt Diabetes Brother No problems noted. Brother No problems noted. Brother No problems noted. Brother No problems noted. Brother No problems noted. Sister No problems noted. Social History Housing: Apartment Alcohol intake: never Patient Tobacco Use Status: Never used Tobacco e-Cigarette/Vaping Use: Never Used Second Hand Smoke Exposure: No service: No Current occupational status: disabled Cognitive needs: Yes (walk, wheelchair) Hearing needs: No Vision needs: Yes (glasses) Review of Systems Const All systems reviewed & are unremarkable except as noted in HPI and below Reports no additional complaints ENT Reports Normal hearing present Card Denies chest pain, Denies chest pain at rest, Denies chest pain with activity and Denies pedal edema Resp Denies cough GI Denies abdominal pain Musc Denies abnormal gait, Denies muscle cramps and Denies radiating pain into limb Skin/Breast Denies skin ulcer and Denies wounds Neuro Reports Normal hearing present and Denies abnormal gait Psych Reports no additional complaints Physical Exam Const General: cooperative, healthy appearing and comfortable Orientation/consciousness: oriented to person, oriented to place and oriented to time HEENT Head: Yes normal to inspection Neck Neck: Yes normal visual inspection Carotids: no bruits Chest Chest palpation & inspection: normal inspection of the chest Resp Effort & Inspection: normal respiratory effort and able to speak in complete sentences Auscultation: clear to auscultation bilaterally, no crackles, no rales, no rhonchi and no wheezes Cardio Rate: regular rate Rhythm: regular rhythm Heart sounds: S1 normal heart sound present and S2 normal heart sound present Bruits: no carotid bruits Peripheral pulses: Peripheral pulses 2+ throughout GI Inspection: Yes normal to inspection Skin Wounds: no wounds Hair: normal Neuro General: oriented to person, oriented to place and oriented to time Cranial nerves: Yes CN's II-XII intact bilaterally and Yes Normal hearing present Cognition (Neuro): normal cognition Motor exam (neuro): 5/5 motor strength present throughout Extrem Other: venous exam: +3 edema left greater than right. Right stump well-healed Right in cm: Amputation Left in cm: Thigh 75.5 Knee 65 Calf 49 Ankle 50 General: No clubbing, No cyanosis and Yes edema Psych Appearance: grossly normal Mental Status: mental status grossly normal Speech and movement: Normal speech and movement present Results Reviewed Results Reviewed: Arterial testing dated 08/30/2023 demonstrates no evidence of peripheral vascular disease. Venous insufficiency testing 10/22/2023 is essentially negative. He does have some reflux in the small saphenous vein Carotid testing dated 09/17/2023 was negative bilateral 0-49% stenosis. Assessment & Plan Assessment & Plan (1) Lymphedema: Code(s): I89.0 - Lymphedema, not elsewhere classified Plan: In short the patient has late on sent lymphedema. The patient has been on conservative treatment for at least 3 months with minimal relief. Patient has tried 30 mm of mercury compression garments, elevation, exercise healthy diet and doing manual says self MLD to the best of their ability for over 4 weeks but with no significant relief. She has been compliant with the program but has provided minimal relief. In addition on physical we are noticing hyperpigmentation, lymphorrhea, and hyperplasia. It appears that she has stage 2 lymphedema. Patient has completed multiple forms of conservative therapy yet significant symptoms remain. Patient requires the use of a pneumatic compression device which we will assist in trying to have the patient obtain them. A pneumatic compression device will help reduce swelling and other lymphedema comorbidities. He will follow up with us on our lymphedema clinic day. Thank you for allowing us to assist in his care. Coding Level of Care Code Est Pt Level 4 (66531) Diagnoses Lymphedema I89.0
== END 2023-10-25 14:45 | disposition home or self-care (01) ==
PROVIDERS: PCP Physician Assistant; Visit Provider Surgery Vascular Surgery
DX: I89.0 Lymphedema, not elsewhere classified (principal)
CPT/HCPCS: 99214

== ENCOUNTER → 2023-10-25 13:47 | Outpatient (BNVA) | payer OTHER, SELFPAY | PROVIDERS: PCP Physician Assistant; Visit Provider Surgery Vascular Surgery | DX: I89.0 Lymphedema, not elsewhere classified (principal); Z99.3 Dependence on wheelchair | CPT/HCPCS: 99212 ==

== ENCOUNTER 2023-11-26 14:37 | Outpatient (AMB) | payer OTHER, SELFPAY ==
[2023-11-26 14:40] VITALS: BMI 53.2
--- NOTE | 2023-11-26 14:40 | A.OFFVIS_ITS ---
Vital Signs 11/26/23 14:40 Height 5 ft 9 in Weight 360 lb BMI 53.2 Intake Visit Reasons: Lymphedema follow up Intake Note: follow up lumphedema in the left LE, started over 1 year ago. Pt states he elevates leg almost consistently, swelling does not go down. Has some hyperplasia, no discoloration or hyperkaratosis, no weeping. Accompanied by: Self / Same As Patient Allergies sulfamethoxazole [From Bactrim] Adverse Reaction (Intermediate, Verified 11/26/23 14:44) Elevated renal functions trimethoprim [From Bactrim] Adverse Reaction (Intermediate, Verified 11/26/23 14:44) Elevated renal functions HPI HPI Lymphedema follow up: Details: Very pleasant 38-year-old Year old patient presents for evaluation of lymphedema. The patient complains of lymphedema located bilateral lower extremity. Of note he is wheelchair-bound and has significantly edematous legs This has been present for approximately many years. Symptoms that the patient has been experiencing include hyperkeratosis hyperpigmentation lymphedema papillomatosis pitting edema recurrent episodes of infection cellulitis pain and wounds. Patient has had a trial of conservative therapy inclusive compression garments of 20-30 mmHg starting on 10/04/2023. In addition the patient has tried exercise limb elevation and home manual lymph decongestive therapy for proximally 30 minutes a day. They have not experienced any significant relief from the swelling and discomfort. They now present for follow-up evaluation. [facility] Medical History Abnormal stress test History of stroke Morbid obesity NOLAN (obstructive sleep apnea) GERD (gastroesophageal reflux disease) HTN (hypertension) Right below-knee amputee Blind left eye Depression Neuropathy CVA (cerebral vascular accident) Sleep apnea Obesity Vitamin D deficiency HLD (hyperlipidemia) GERD (gastroesophageal reflux disease) Below knee amputation Type 2 diabetes mellitus Surgical History Hx of eye surgery History of amputation of right foot Family History Mother Diabetes Father Prostate cancer Paternal Aunt Diabetes Brother No problems noted. Brother No problems noted. Brother No problems noted. Brother No problems noted. Brother No problems noted. Sister No problems noted. Social History (Reviewed 11/26/23 @ 14:45 by Felicia Prado [facility]) Housing: Apartment Alcohol intake: never Patient Tobacco Use Status: Never used Tobacco e-Cigarette/Vaping Use: Never Used Second Hand Smoke Exposure: No service: No Current occupational status: disabled Cognitive needs: Yes (walk, wheelchair) Hearing needs: No Vision needs: Yes (glasses) Review of Systems Const All systems reviewed & are unremarkable except as noted in HPI and below Reports no additional complaints ENT Reports Normal hearing present Card Denies chest pain, Denies chest pain at rest, Denies chest pain with activity and Denies pedal edema Resp Denies cough GI Denies abdominal pain Musc Denies abnormal gait, Denies muscle cramps and Denies radiating pain into limb Skin/Breast Denies skin ulcer and Denies wounds Neuro Reports Normal hearing present and Denies abnormal gait Psych Reports no additional complaints Physical Exam Vital Signs: BMI result Body Mass Index 53.2 Const General: cooperative, healthy appearing and comfortable Orientation/consciousness: oriented to person, oriented to place and oriented to time HEENT Head: Yes normal to inspection Neck Neck: Yes normal visual inspection Carotids: no bruits Chest Chest palpation & inspection: normal inspection of the chest Resp Effort & Inspection: normal respiratory effort and able to speak in complete sentences Auscultation: clear to auscultation bilaterally, no crackles, no rales, no rhonchi and no wheezes Cardio Rate: regular rate Rhythm: regular rhythm Heart sounds: S1 normal heart sound present and S2 normal heart sound present Bruits: no carotid bruits Peripheral pulses: Peripheral pulses 2+ throughout GI Inspection: Yes normal to inspection Skin Other: Right in cm: Thigh 71.5 Knee 56.5 Calf 53.25 Ankle 43.5 Left in cm: Thigh 68 Knee 54 Calf 49.5 Ankle 43.5 /waist 152.25 In seem left 63 right 54 Wounds: no wounds Hair: normal Neuro General: oriented to person, oriented to place and oriented to time Cranial nerves: Yes CN's II-XII intact bilaterally and Yes Normal hearing present Cognition (Neuro): normal cognition Motor exam (neuro): 5/5 motor strength present throughout Extrem Other: venous exam: No significant superficial varicosities or spider telangiectasias, minimal edema General: No clubbing, No cyanosis and No edema Psych Appearance: grossly normal Mental Status: mental status grossly normal Speech and movement: Normal speech and movement present Assessment & Plan Assessment & Plan (1) Lymphedema: Code(s): I89.0 - Lymphedema, not elsewhere classified Category: Medical Plan: In short the patient has late on sent lymphedema. The patient has been on conservative treatment for at least 3 months with minimal relief. Patient has tried 30 mm of mercury compression garments, elevation, exercise healthy diet and doing manual says self MLD to the best of their ability for over 4 weeks but with no significant relief. She has been compliant with the program but has provided minimal relief. In addition on physical we are noticing hyperp igmentation, lymphorrhea, and hyperplasia. It appears that she has stage 2 lymphedema. Patient has completed multiple forms of conservative therapy yet significant symptoms remain. Patient requires the use of a pneumatic compression device which we will assist in trying to have the patient obtain them. A pneumatic compression device will help reduce swelling and other lymphedema comorbidities. Thank you for allowing us to assist in this patient's care. Medications: Discontinued semaglutide (Ozempic) Discontinued Reason: Doctor's Order 1 mg (0.75 mL) subcut QWEEK 3 mL 4RF Coding Level of Care Code Est Pt Level 4 (71761) Diagnoses Lymphedema I89.0
== END 2023-11-27 08:37 | disposition home or self-care (01) ==
LOC: HO.HVS 14:38
PROVIDERS: PCP Physician Assistant; Visit Provider Surgery Vascular Surgery
DX: I89.0 Lymphedema, not elsewhere classified (principal)
CPT/HCPCS: 99214

== ENCOUNTER → 2023-11-26 14:37 | Outpatient (BNVA) | payer OTHER, SELFPAY | PROVIDERS: PCP Physician Assistant; Visit Provider Surgery Vascular Surgery | DX: I89.0 Lymphedema, not elsewhere classified (principal) | CPT/HCPCS: 99212 ==

== ENCOUNTER 2023-12-19 14:40 | Outpatient (AMB) | payer OTHER, SELFPAY ==
--- NOTE | 2023-12-19 14:40 | MHC.OFFVIS ---
Intake Visit Reasons: Gastroesophageal reflux disease (GERD) Intake Note: Jerome presents as a telehealth today regarding acid reflux. 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 Patient reports that has been having episodic heartburn and retrosternal chest pain on and off for at least the last 3-5 years. Takes omeprazole in the morning around 10:00, after breakfast. Symptoms also pronounced around bedtime. Does not smoke. Drinks occasionally. No recent NSAID use. Has morbid obesity with BMI of 50. Other metabolic factors include type 2 diabetes complicated by nonhealing diabetic foot ulcer leading to foot amputation. Hypertension. Likely sleep apnea. [facility] Medical History Abnormal stress test History of stroke Morbid obesity NOLAN (obstructive sleep apnea) GERD (gastroesophageal reflux disease) HTN (hypertension) Right below-knee amputee Blind left eye Depression Neuropathy CVA (cerebral vascular accident) Sleep apnea Obesity Vitamin D deficiency HLD (hyperlipidemia) GERD (gastroesophageal reflux disease) Below knee amputation Type 2 diabetes mellitus Surgical History Hx of eye surgery History of amputation of right foot Family History Mother Diabetes Father Prostate cancer Paternal Aunt Diabetes Brother No problems noted. Brother No problems noted. Brother No problems noted. Brother No problems noted. Brother No problems noted. Sister No problems noted. Social History Housing: Apartment Alcohol intake: never Patient Tobacco Use Status: Never used Tobacco e-Cigarette/Vaping Use: Never Used Second Hand Smoke Exposure: No service: No Current occupational status: disabled Cognitive needs: Yes (walk, wheelchair) Hearing needs: No Vision needs: Yes (glasses) Review of Systems Const All systems reviewed & are unremarkable except as noted in HPI and below Physical Exam Vital Signs: Video visit Obese appearing No acute distress Able to speak in full sentences Telehealth Telehealth Telehealth Platform: [employer] Location of provider rendering services: practice address Location of patient: address on file Patient Identification confirmed using: Name, : Yes Telehealth method: video Patient verbally consented to treatment: Yes Patient verbally consented to billing insurance company: Yes Patient informed of any privacy concerns related to visit: Yes Minutes spent on Phone/Video with Pt.: 12 Assessment & Plan Assessment & Plan (1) GERD (gastroesophageal reflux disease): Code(s): K21.9 - Gastro-esophageal reflux disease without esophagitis Category: Medical Qualifiers: Esophagitis presence: without esophagitis Qualified Code(s): K21.9 - Gastro-esophageal reflux disease without esophagitis Plan Reviewed with the patient the correct method of taking PPI is on empty stomach. In addition, recommend using it twice a day due to prominent nighttime symptoms. He was also advised to wait for at least 3 hours before going to bed after last meal. Most likely has compromised reflux barrier due to super morbid obesity, barium swallow ordered. He was also encouraged to follow back with Bariatric Medicine program. Follow-up in 3 months Orders: Orders FL barium swallow 12/19/23 K21.9 - Gastro-esophageal reflux disease without esophagitis Medications: New omeprazole 40 mg PO BID 90 days 180 caps 0RF K21.9 - Gastro-esophageal reflux disease without esophagitis Coding Level of Care Code Tele New Pt Level 3 (14890) Diagnoses Gastroesophageal reflux disease without esophagitis K21.9 Esophagitis presence: without esophagitis
== END 2023-12-19 14:54 | disposition home or self-care (01) ==
PROVIDERS: PCP Physician Assistant; Visit Provider Internal Medicine
DX: K21.9 Gastro-esophageal reflux disease without esophagitis (principal)
CPT/HCPCS: 99203

== ENCOUNTER → 2023-12-19 14:40 | Outpatient (BNVA) | payer OTHER, SELFPAY | PROVIDERS: PCP Physician Assistant; Visit Provider Internal Medicine ==

== ENCOUNTER 2024-01-08 09:22 | Outpatient (REF) | payer OTHER, SELFPAY ==
--- NOTE | ~2024-01-08 | FL_ITS ---
EXAMINATION: XR FLUOROSCOPY UPPER GI WITH AIR CLINICAL INFORMATION: Reflux COMPARISON: Upper GI December 2020 TECHNIQUE: Fluoroscopic air contrast upper GI examination was performed utilizing standard techniques with thin and thick barium and effervescent granules. Numerous spot images were obtained. FINDINGS: Dual and single contrast images of the esophagus demonstrate patulous caliber. There is normal contour and mucosal pattern. No evidence of stricture, mass, or ulcerations identified. Esophageal peristalsis was mildly disordered. A small type I hiatal hernia is present. Linear filling defect noted along the lateral margin of the hernia, possible thickened gastric folds versus esophageal varices. Severe gastroesophageal reflux is seen up to the thoracic inlet. Dual contrast and single contrast images of the stomach demonstrated a normal contour. Evaluation the gastric mucosa is limited due to poor coating and difficulty positioning the patient. Contrast freely passed into the gastric antrum and duodenal bulb without delay. Single and air-contrast images of the duodenal bulb demonstrate no abnormality. The duodenal sweep has a normal appearance, course, and mucosal fold appearance. The imaged proximal jejunum has a normal fold pattern and caliber. FLUOROSCOPY TIME: 4 minutes 11 seconds Number of Spot Images: 7 Number of Cine: 11 DOSE AREA PRODUCT: [id number] uGy-m2 (microgray-meter squared) FL/FL barium swallow IMPRESSION: 1. Small type I hiatal hernia. Linear filling defects along the margin of the hernia may relate to thickened gastric folds versus varices. 2. Severe gastroesophageal reflux. Patulous GE junction. 3. Patulous esophagus with mildly disordered peristalsis. No definite mucosal abnormality. 4. Limited evaluation of the gastric mucosa due to poor coating and difficulty positioning the patient. Consider correlating with EGD. This procedure was performed by Sammy Moreno PA-C, and supervised by Dr. Monterroso
== END 2024-01-08 09:23 | disposition home or self-care (01) ==
LOC: HO.XRAY 09:22
PROVIDERS: PCP Physician Assistant; Visit Provider Internal Medicine
DX: K21.9 Gastro-esophageal reflux disease without esophagitis (principal)
CPT/HCPCS: 74220

== ENCOUNTER → 2024-01-08 09:25 | Outpatient (BNV) | payer OTHER, SELFPAY | PROVIDERS: PCP Physician Assistant; Visit Provider Physician Assistant Surgical | DX: K21.9 Gastro-esophageal reflux disease without esophagitis (principal) | CPT/HCPCS: 74246 ==

== ENCOUNTER 2024-01-14 10:19 | Outpatient (AMB) | payer OTHER, SELFPAY ==
[2024-01-14 10:25] VITALS: BP 128/82; PULSE 98
--- NOTE | 2024-01-14 10:25 | MHC.OFFVIS ---
Vital Signs 01/14/24 10:25 Height 5 ft 9 in BP 128/82 Blood Pressure Location Lt brachial Position Sitting Pulse 98 Pulse Source Pulse Oximeter Intake Visit Reasons: f/u Type 2 DM-confirmed Intake Note: Patient presents today to follow up on D2MT. Last Diabetic Eye exam: Over 1 year ago but has upcoming appt on 01/16/24. Last Podiatry Visit: Random Glucose: 84 mg/dl HgA1c: 7.0% Mount Loader Required: No Accompanied by: Self / Same As Patient Allergies sulfamethoxazole [From Bactrim] Adverse Reaction (Intermediate, Verified 01/14/24 10:31) Elevated renal functions trimethoprim [From Bactrim] Adverse Reaction (Intermediate, Verified 01/14/24 10:31) Elevated renal functions Medication List - Last Reconciled 01/14/24 by Flaco Styles MD acetaminophen ER 1,300 mg (2 x 650 mg) PO Q8H PRN 90 days alcohol swabs 1 pad topical QID aspirin (Adult Aspirin Regimen) 81 mg PO DAILY 90 days atorvastatin 80 mg PO BEDTIME 30 days blood pressure kit-extra large As directed blood sugar diagnostic (FreeStyle Lite Strips) As directed blood sugar diagnostic (FreeStyle Lite Strips) USE TO TEST FINGER STICK BLOOD SUGAR 4 (FOUR) TIMES DAILY blood-glucose sensor ([employer] G7 Sensor device) As directed change every 10 days carvedilol 25 mg PO BID chair, wheel (Wheel chair) LIFETIME USE cholecalciferol (vitamin D3) (Vitamin D3) 25 mcg PO DAILY duloxetine 30 mg PO BID famotidine 40 mg PO BEDTIME 30 days ferrous sulfate 325 mg PO DAILY furosemide 40 mg (2 x 20 mg) PO DAILY 30 days gabapentin 800 mg PO TID 30 days hydralazine 100 mg PO BID incontinence pad, liner, disp As directed insulin regular hum U-500 conc (Humulin R U-500 (Conc) Insulin Kwikpen) 40 units (0.08 mL) subcut TID lancets As directed lancets (Easy Touch Lancets) As directed latex gloves (Latex Gloves, Large) As directed lidocaine 5% 1 patch topical DAILY lisinopril 1 tab PO DAILY [manual wheel chair As directed with adjustable leg rests ] melatonin 10 mg PO DAILY miscellaneous medical supply 1 ea miscellaneous ONCE 4 weeks miscellaneous medical supply 1 ea miscellaneous .once per week 4 weeks miscellaneous medical supply 1 ea miscellaneous DAILY 90 days nifedipine ER 90 mg PO DAILY 90 days omeprazole 40 mg PO DAILY 90 days omeprazole 40 mg PO BID 90 days pen needle, diabetic As directed polyethylene glycol 3350 (Miralax) 17 grams PO DAILY 30 days [Power wheel chair As directed] semaglutide (Ozempic) 2 mg (0.75 mL) subcut QWEEK spironolactone 25 mg PO DAILY 90 days tramadol 50 mg PO TID PRN 30 days HPI Comments Details: 38 YO M with PMHx T2DM who is seen in F/U for the same. Initially diagnosed with T2DM at the age of 14. Was initially started on treatment with Metformin and Glyburide. Began using Insulin at the age of 20. Current regimen Ozempic 2 mg once a week and Humulin U500 40 units with with breakfast, lunch and dinner. Has DEXCOM G6. 14 days of data downloaded from 01/01/24 through 01/14/24 . This reveals an average glucose of 164 and SD of 44 . He is at goal 68% of the time, above goal 31% of the time, and below goal <1% of the time. No hypoglycemia He has been undergoing evaluation for bariatric surgery, but has not met the weight loss goal so surgery has been put on hold. Most recent A1C: 6.9% 12/20/2022, down from 7.5% 08/14/2021, 8.0% 01/25/2022. A1C is inaccurate given his CKD. Family history of T2DM in his Parents. Has eyes checked yearly, has appt in 2 days , Has retinopathy. Has neuropathy. Had a R BKA in 2017 due to an infected ulcer. Has nephropathy, on Lisinopril 20 mg PO daily. UAC 431.6 08/14/2022. Has HLD, on Atorvastatin 40 mg PO daily. LDL 79 08/14/2022. Has CAD and a prior CVA. Diet: Very poor. Does not monitor carbohydrates. Admits to drinking sweetened beverages such as juice and sprite all day long. Weight: Has severe obesity. Currently attending [facility]. Labs: Laboratory Tests 08/14/22 08/14/22 08/14/22 15:50 15:50 15:50 Sodium 142 Potassium 4.2 Creatinine 1.59 H Estimated GFR 49 Hemoglobin A1c % 7.5 LDL Cholesterol Direct 79 25-OH Vitamin D Total 26.6 Microalb/Creat Ratio 08/14/22 16:15 Sodium Potassium Creatinine Estimated GFR Hemoglobin A1c % LDL Cholesterol Direct 25-OH Vitamin D Total Microalb/Creat Ratio 431.6 [facility] Medical History Abnormal stress test History of stroke Morbid obesity NOLAN (obstructive sleep apnea) GERD (gastroesophageal reflux disease) HTN (hypertension) Right below-knee amputee Blind left eye Depression Neuropathy CVA (cerebral vascular accident) Sleep apnea Obesity Vitamin D deficiency HLD (hyperlipidemia) GERD (gastroesophageal reflux disease) Below knee amputation Type 2 diabetes mellitus Surgical History Hx of eye surgery History of amputation of right foot Family History Mother Diabetes Father Prostate cancer Paternal Aunt Diabetes Brother No problems noted. Brother No problems noted. Brother No problems noted. Brother No problems noted. Brother No problems noted. Sister No problems noted. Social History Housing: Apartment Alcohol intake: never Patient Tobacco Use Status: Never used Tobacco e-Cigarette/Vaping Use: Never Used Second Hand Smoke Exposure: No service: No Current occupational status: disabled Cognitive needs: Yes (walk, wheelchair) Hearing needs: No Vision needs: Yes (glasses) Physical Exam Vital Signs: Last Vital Signs Pulse 98 01/14/24 10:25 BP 128/82 01/14/24 10:25 Absence of Cushingoid features. Absence of acromegalic features. Neck exam reveals nl size thyroid about 15 gms. No thyroid nodules palpable. No carotid bruits present. Lungs CTA. Heart S1 S2, Reg R/R. No M/R/ G. Skin exam reveals absence of vitiligo or acanthosis nigricans. Abdominal exam reveals Soft NT/ND with NA BS. No organomegaly present. Neck Other: . Extrem Other: Visual exam of foot performed. R BKA LLE 3 + edema No ulcerations or open lesions. No onchomycosis, no callouses.Pulses 2 + distally Sensation intact to monofilament exam. Vibratory sensation sensed is decreased with 128 Hz tuning fork Results AMB Hemoglobin A1c AMB Hemoglobin A1c 7.0 % Last Edit by YUNI Barbour on 01/14/24 11:01 Results Reviewed Results Reviewed: Laboratory Last Values Glucose (Clinic) 84 mg/dL (60-115) 01/14/24 10:33 Hgb A1c (Clinic) 7.0 % (4.0-6.0) H 01/14/24 10:36 Assessment & Plan Assessment & Plan (1) Type 2 diabetes mellitus with unspecified complications: Code(s): E11.8 - Type 2 diabetes mellitus with unspecified complications Category: Medical Plan: This is a 38-year-old black male with a history of type 2 diabetes being treated with U-500 insulin and Ozempic with excellent improved glycemic control with known microvascular and macrovascular complications including retinopathy, neuropathy, nephropathy, CAD and CVA. Plan is to continue the current regimen . We talked about his primary provider potentially giving him a referral to lymphedema clinic at [facility] or occupational therapy here to deal with his lymphedema. We also talked about potentially returning to bariatric clinic for possible bariatric surgery Orders: Orders AMB Hemoglobin A1c Today E11.8 - Type 2 diabetes mellitus with unspecified complications, Z13.9 - Encounter for screening, unspecified Coding Level of Care Code Est Pt Level 4 (19739) Diagnoses Type 2 diabetes mellitus with unspecified complications E11.8
[2024-01-14 10:37] LABS: Glucose, Whole Blood 84 mg/dL (60-115)
== END 2024-01-14 10:53 | disposition home or self-care (01) ==
PROVIDERS: PCP Physician Assistant; Visit Provider Internal Medicine Endocrinology, Diabetes & Metabolism
DX: Z13.9 Encounter for screening, unspecified (principal); E11.8 Type 2 diabetes mellitus with unspecified complications
CPT/HCPCS: 99214

== ENCOUNTER → 2024-01-14 10:19 | Outpatient (BNVA) | payer OTHER, SELFPAY | PROVIDERS: PCP Physician Assistant; Visit Provider Internal Medicine Endocrinology, Diabetes & Metabolism | DX: E11.8 Type 2 diabetes mellitus with unspecified complications (principal) | CPT/HCPCS: 82947; 83036; 99212 ==

== ENCOUNTER 2024-03-19 13:55 | Outpatient (AMB) | payer OTHER, SELFPAY ==
--- NOTE | 2024-03-19 13:57 | MHC.OFFVIS ---
Vital Signs 03/19/24 14:06 Height 5 ft 9 in Weight 354 lb BMI 52.3 BP 140/64 H Blood Pressure Location Lt brachial Position Sitting Pulse 96 Intake Visit Reasons: Follow up BS results Intake Note: Patient follow up for BS results. Patient cc: vomit in the morning on and off, constipation, acid reflex with burning sensation come and go. Camouflage Specialist Required: No Accompanied by: Family/Other Allergies NSAIDS (Non-Steroidal Anti-Inflamma Allergy (Unknown, Verified 05/03/24 15:28) Unknown sulfamethoxazole [From Bactrim] Adverse Reaction (Intermediate, Verified 05/03/24 15:28) Elevated renal functions trimethoprim [From Bactrim] Adverse Reaction (Intermediate, Verified 05/03/24 15:28) Elevated renal functions HPI Comments Details: This is a 38-year-old gentleman who was referred to our office for ongoing reflux symptoms. Patient reports that has been having episodic heartburn and retrosternal chest pain on and off for at least the last 3-5 years. Takes omeprazole in the morning around 10:00, after breakfast. Symptoms also pronounced around bedtime. Does not smoke. Drinks occasionally. No recent NSAID use. Has morbid obesity with BMI of 50. Other metabolic factors include type 2 diabetes complicated by non-healing diabetic foot ulcer leading to foot amputation. Hypertension. Likely sleep apnea. 03/19/24: Here for in person visit. Reports good contol of sx with BID PPI. Has been taking this for the last 3 months. No nausea or vomiting. Has not had a chance to reconnect with bariatrics yet. Barium swallow reviewed question of varices raised. Plt count normal, however will proceed with EGD. [facility] Medical History Abnormal stress test History of stroke Morbid obesity NOLAN (obstructive sleep apnea) GERD (gastroesophageal reflux disease) HTN (hypertension) Right below-knee amputee Blind left eye Depression Neuropathy CVA (cerebral vascular accident) Sleep apnea Obesity Vitamin D deficiency HLD (hyperlipidemia) GERD (gastroesophageal reflux disease) Below knee amputation Type 2 diabetes mellitus Surgical History Hx of eye surgery History of amputation of right foot Family History Mother Diabetes Father Prostate cancer Paternal Aunt Diabetes Brother No problems noted. Brother No problems noted. Brother No problems noted. Brother No problems noted. Brother No problems noted. Sister No problems noted. Social History Housing: Apartment Alcohol intake: never Patient Tobacco Use Status: Never used Tobacco e-Cigarette/Vaping Use: Never Used Second Hand Smoke Exposure: No service: No Current occupational status: disabled Cognitive needs: Yes (walk, wheelchair (w/c weighs 360lbs)) Hearing needs: No Vision needs: Yes (glasses) Review of Systems Const All systems reviewed & are unremarkable except as noted in HPI and below Physical Exam Vital Signs: Last Vital Signs Pulse 96 03/19/24 14:06 BP 140/64 H 03/19/24 14:06 BMI result Body Mass Index 52.3 No apparent distress Nonicteric, with obesity Abdomen soft, nondistended Alert and oriented x3, wheelchair bound, s/p amputated leg Assessment & Plan Assessment & Plan (1) Morbid obesity: Code(s): E66.01 - Morbid (severe) obesity due to excess calories Category: Medical (2) GERD (gastroesophageal reflux disease): Code(s): K21.9 - Gastro-esophageal reflux disease without esophagitis Category: Medical Qualifiers: Esophagitis presence: without esophagitis Qualified Code(s): K21.9 - Gastro-esophageal reflux disease without esophagitis (3) Abnormal barium swallow: Code(s): R93.3 - Abnormal findings on diagnostic imaging of other parts of digestive tract Category: Medical Plan #Low probability of portal HTN/varices based on fib 4 score 0.49 and total platelet count. However, barium swallow raises question of gastric varices versus thickened gastric folds. Will proceed with an upper endoscopy. # For his GERD, has good control with PPI therapy. Reviewed with the patient that this is most likely 2/2 central obesity leading to weakened reflux barrier. Hiatal hernia is small. BMI is >50. Would strongly recommend reestablish care with Bariatrics program for not just managing GERD but also for NOLAN, fatty liver. Reports difficulty/inability to stand as a barrier to weight loss. Encouraged to regularly wear prosthesis to try to stay active. Referral to Bariatrics requested today. Omeprazole refilled Follow up after procedure Orders: Referrals Bariatric Surgery Referral E66.01 - Morbid (severe) obesity due to excess calories, E11.8 - Type 2 diabetes mellitus with unspecified complications Medications: Changed From omeprazole 40 mg PO BID 90 days 180 caps 0RF K21.9 - Gastro-esophageal reflux disease without esophagitis To omeprazole 40 mg PO .night time 90 caps 1RF 90 days K21.9 - Gastro-esophageal reflux disease without esophagitis Discontinued omeprazole Discontinued Reason: Doctor's Order 40 mg PO DAILY 90 days 90 caps 2RF K21.9 - Gastro-esophageal reflux disease without esophagitis Coding Level of Care Code Est Pt Level 4 (03719) Diagnoses Morbid obesity E66.01 Gastroesophageal reflux disease without esophagitis K21.9 Esophagitis presence: without esophagitis Abnormal barium swallow R93.3
[2024-03-19 14:06] VITALS: BP 140/64; PULSE 96; BMI 52.3
== END 2024-03-19 14:45 | disposition home or self-care (01) ==
PROVIDERS: PCP Physician Assistant; Visit Provider Internal Medicine
DX: E66.01 Morbid (severe) obesity due to excess calories (principal); K21.9 Gastro-esophageal reflux disease without esophagitis; R93.3 Abnormal findings on diagnostic imaging of other parts of digestive tract
CPT/HCPCS: 99214

== ENCOUNTER → 2024-03-19 13:55 | Outpatient (BNVA) | payer OTHER, SELFPAY | PROVIDERS: PCP Physician Assistant; Visit Provider Internal Medicine | DX: E66.01 Morbid (severe) obesity due to excess calories (principal); Z68.43 Body mass index [BMI] 50.0-59.9, adult; K21.9 Gastro-esophageal reflux disease without esophagitis; R93.3 Abnormal findings on diagnostic imaging of other parts of digestive tract; Z79.899 Other long term (current) drug therapy | CPT/HCPCS: 99212 ==

== ENCOUNTER → 2024-03-31 13:08 | Outpatient (BNVA) | payer OTHER, SELFPAY | PROVIDERS: PCP Physician Assistant; Visit Provider Physician Assistant Surgical ==

== ENCOUNTER 2024-04-14 12:33 | Outpatient (REF) | payer OTHER, SELFPAY ==
[2024-04-14 12:59] LABS: MANUAL DIFF FLAG NO
[2024-04-14 13:09] LABS: Basophils Percent Auto 0.4 % (0-2); Eosinophils Absolute Auto 0.1 X10*3/uL (0.0-0.4); Eosinophils Percent Auto 2.5 % (0-4); Hematocrit 35.3 % (42.0-52.0); Hemoglobin 11.5 g/dl (14.0-18.0); Imm Gran Abs Auto 0.01 X10*3/uL (0.00-0.03); Imm Gran Pct Auto 0.2 % (0.0-0.4); Lymphocytes Absolute Auto 1.8 X10*3/uL (1.2-4.9); Lymphocytes Percent Auto 35.5 % (20-40); Mean Corpuscular HGB Conc 32.6 g/dl (31.0-36.0); Mean Corpuscular Hemoglobin 28.9 pg (27.0-33.0); Mean Corpuscular Volume 88.7 fL (80.0-98.0); Mean Platelet Volume 9.5 fL (9.4-12.4); Monocytes Absolute Auto 0.4 X10*3/uL (0.1-1.2); Neutrophils Absolute Auto 2.8 x10*3/uL (2.0-8.3); Neutrophils Percent Auto 54.4 % (45-73); Platelet Count 329 X10*3/uL (160-400); Red Blood Count 3.98 X10*6/uL (4.60-5.80); Red Cell Distribution Width 12.8 % (11.0-16.0); White Blood Count 5.2 X10*3/uL (4.8-10.8)
[2024-04-14 13:54] LABS: PTH Intact Intraoperative 178.3 pg/mL (8.7-77.1)
[2024-04-14 13:57] LABS: Albumin Level 4.3 g/dL (3.5-5.0); Anion Gap 12 (12-20); Blood Urea Nitrogen 30 mg/dL (9-16); Calcium 9.7 mg/dL (8.4-10.2); Carbon Dioxide 26 mmol/L (22-29); Chloride 107 mmol/L (96-108); Estimated Glomerular Filt Rate 45; Glucose Random 119 mg/dL (60-115); Phosphorus 3.3 mg/dL (2.7-4.5); Potassium 4.7 mmol/L (3.3-5.1); Sodium 140 mmol/L (135-145)
[2024-04-14 14:09] LABS: Vitamin D 25-OH Total 31.4 ng/mL (>30)
[2024-04-14 14:41] LABS: Uric Acid 7.7 mg/dL (3.4-7.0)
[2024-04-14 15:29] LABS: Appearance Urine Clear; Color Urine Yellow; Glucose Urine UA Negative (Negative); Leukocyte Esterase Urine Trace (Negative); Nitrite Urine Negative (Negative); UMIC TRIGGER UA YES; Urine Blood Negative (Negative); Urine Ketones Negative (Negative); Urine Protein 100 (2+) mg/dL (Neg-Trace)
[2024-04-14 15:33] LABS: Bacteria Urine None Seen (None Seen); Hyaline Casts Urine 0-2 /LPF (0-2); RBC Urine 0-2 /HPF (0-2); Squamous Epithelial Cell Urine 0-2 /HPF (0-2); WBC Urine 0-5 /HPF (0-5)
[2024-04-14 17:32] LABS: Creatinine Urine 158.38 mg/dL; Microalbum/Creatinine Ratio Ur 462.1 ug/mg cr (<30)
== END 2024-04-14 12:34 | disposition home or self-care (01) ==
LOC: HO.LAB 12:33
PROVIDERS: PCP Physician Assistant; Visit Provider Internal Medicine Nephrology
DX: R80.9 Proteinuria, unspecified (principal)
CPT/HCPCS: 36415; 80048; 81001; 82040; 82043; 82306; 82570; 83735; 83970; 84100; 84550; 85025

== ENCOUNTER → 2024-04-21 13:01 | Outpatient (BNVA) | payer OTHER, SELFPAY | PROVIDERS: PCP Physician Assistant; Visit Provider Physician Assistant Surgical ==

== ENCOUNTER 2024-05-02 08:51 | Outpatient (AMB) | payer OTHER, SELFPAY ==
--- NOTE | 2024-05-02 08:54 | MHC.OFFVISWM ---
VS Expanded 05/02/24 08:59 BP 120/66 Blood Pressure Location Rt brachial Blood Pressure Position Sitting Pulse 98 Pulse Source Pulse Oximeter Temp 97.9 F Temperature Source Tympanic Pulse Oximetry 99 Oxygen Delivery Method Room Air Height 5 ft 9 in Weight 327 lb 6.183 oz BMI 48.3 Intake Visit Reasons: OV Re-Est SWL *NO TANITA - WHEELCHAIR BOUND* Allergies NSAIDS (Non-Steroidal Anti-Inflamma Allergy (Unknown, Verified 05/02/24 13:01) Unknown sulfamethoxazole [From Bactrim] Adverse Reaction (Intermediate, Verified 05/02/24 13:01) Elevated renal functions trimethoprim [From Bactrim] Adverse Reaction (Intermediate, Verified 05/02/24 13:01) Elevated renal functions Medication List - Last Reconciled 05/02/24 by Neri Hays MD acetaminophen ER 1,300 mg (2 x 650 mg) PO Q8H PRN 90 days alcohol swabs 1 pad topical QID aspirin (Adult Aspirin Regimen) 81 mg PO DAILY 90 days atorvastatin 80 mg PO BEDTIME 30 days blood pressure kit-extra large As directed blood sugar diagnostic (FreeStyle Lite Strips) As directed blood sugar diagnostic (FreeStyle Lite Strips) USE TO TEST FINGER STICK BLOOD SUGAR 4 (FOUR) TIMES DAILY blood-glucose sensor ([employer] G7 Sensor device) As directed change every 10 days carvedilol 25 mg PO BID chair, wheel (Wheel chair) LIFETIME USE cholecalciferol (vitamin D3) (Vitamin D3) 25 mcg PO DAILY duloxetine 30 mg PO BID famotidine 40 mg PO BEDTIME 30 days ferrous sulfate 325 mg PO DAILY furosemide 40 mg (2 x 20 mg) PO DAILY 30 days gabapentin 800 mg PO TID 30 days hydralazine 100 mg PO BID incontinence pad, liner, disp As directed insulin regular hum U-500 conc (Humulin R U-500 (Conc) Insulin Kwikpen) 40 units (0.08 mL) subcut TID lancets As directed lancets (Easy Touch Lancets) As directed latex gloves (Latex Gloves, Large) As directed lisinopril 1 tab PO DAILY [manual wheel chair As directed with adjustable leg rests ] melatonin 10 mg PO DAILY miscellaneous medical supply 1 ea miscellaneous ONCE 4 weeks miscellaneous medical supply 1 ea miscellaneous .once per week 4 weeks miscellaneous medical supply 1 ea miscellaneous DAILY 90 days nifedipine ER 90 mg PO DAILY 90 days omeprazole 40 mg PO .night time 90 days pen needle, diabetic As directed [Power wheel chair As directed] semaglutide (Ozempic) 2 mg (0.75 mL) subcut QWEEK spironolactone 25 mg PO DAILY 90 days tramadol 50 mg PO TID PRN 30 days HPI Comments Details: Patient is re-establishing care No significant changes in his health since last time he was here I reviewed extensive previous records: 01/08/24: severe GERD and small HH. The HH is new from previous UGI in 202012/09/20: H pylori was negative by EGD. EGD was incomplete due to significant amount of food contents 12/09/20: abdominal US: severe hepatomegaly and severe fibrosis 01/19/2021: Lexiscan nuclear stress test: poss reversible defect but most likely soft tissue attenuation 01/19/2021: Echo: mod LVH PFSH Medical History Abnormal stress test History of stroke Morbid obesity NOLAN (obstructive sleep apnea) GERD (gastroesophageal reflux disease) HTN (hypertension) Right below-knee amputee Blind left eye Depression Neuropathy CVA (cerebral vascular accident) Sleep apnea Obesity Vitamin D deficiency HLD (hyperlipidemia) GERD (gastroesophageal reflux disease) Below knee amputation Type 2 diabetes mellitus Surgical History Hx of eye surgery History of amputation of right foot Family History Mother Diabetes Father Prostate cancer Paternal Aunt Diabetes Brother No problems noted. Brother No problems noted. Brother No problems noted. Brother No problems noted. Brother No problems noted. Sister No problems noted. Social History Housing: Apartment Alcohol intake: never Patient Tobacco Use Status: Never used Tobacco e-Cigarette/Vaping Use: Never Used Second Hand Smoke Exposure: No service: No Current occupational status: disabled Cognitive needs: Yes (walk, wheelchair (w/c weighs 360lbs)) Hearing needs: No Vision needs: Yes (glasses) Physical Exam Vital Signs: Last Vital Signs Temp 97.9 F 05/02/24 08:59 Pulse 98 05/02/24 08:59 BP 120/66 05/02/24 08:59 Pulse Ox 99 05/02/24 08:59 Oxygen Delivery Method Room Air 05/02/24 08:59 BMI result Body Mass Index 48.3 GI Inspection: Yes normal to inspection (Android [employer]us) and Yes obesity Palpation (GI): Firmness to palpation present (GI) Extrem Left lower extremity: edema Assessment & Plan Assessment & Plan (1) Morbidly obese: Code(s): E66.01 - Morbid (severe) obesity due to excess calories Category: Medical Plan: 1.? Plan for lap sleeve gastrectomy. If diaphragmatic or ventral hernias are present at time of surgery, these will be repaired laparoscopically as well. Risks and complications include possible conversion to an open procedure, anastomotic leak, bleeding requiring transfusion, small bowel obstruction, , DVT and pulmonary embolism, cardiac, or pulmonary complications, as detention complications such as anastomotic ulcer, insufficient weight loss and vitamin deficiencies. I emphasized the importance of close follow-up, adherence to instructions and good communication. 2. Nutritional counseling. Start with one PREMIER protein shake (HALF scoop in 8oz low fat unsweetened almond milk) at 10am-12pm, lunch at 1pm (10 forks of protein and 10 forks of salad/vegetables), one Pure protein bar at 3pm-5pm, dinner at 6pm (10 forks of protein and 10 forks of salad/vegetables), one PREMIER protein shake (HALF scoop in 8oz low fat unsweetened almond milk) at 8pm-10pm and one more Pure protein bar at 11pm-1am. So you do 2 protein shakes, 2 protein bars and 2 meals per day. Meal to include lean meat (beef, fish, pork, turkey, chicken), or telugu yogurt, or egg whites, or beans with a salad with olive oil and fruits (berries, pears, apples, kiwi). Avoid salt, breads, potatoes, rice, pasta, desserts. 3. Each shake would be drunk slowly, like coffee in a period of 2 hours. 4. Cut each bar in 4 pieces and eat each piece in 30min ?to make each bar last 2 hours. 5. I emphasized the importance of measuring accurately the food portion and measure it when serving the food in plate 6. The meal portions include 10 full-size forks of meat and 10 full-size forks of salad. You always eat the meat portion but you can replace up to 5 forks for salad/vegetables with rice, potatoes or pasta, or a fruit ?if you like. The less you do it the better weight loss will be. 7. One full-size fork is what it can be scooped on the fork without falling aside and not what can be bit with the fork. Use regular forks like those you find in a typical restaurant. 8.? Please send me weight measurements weekly on Fridays. Weigh with the prosthesis unsupported and weigh also the prosthesis separately 9. Try to wear the prosthesis and walk as much as possible within your house 10. Emphasized the importance of monitoring the blood pressure daily in am when wakes up and two more times throughout the day. If systolic blood pressure is 120 mmHg, or less I explained to the patient that needs to notify me. Also I explained the symptoms of orthostatic hypotension (dizziness and lightheadedness) for which the patient also needs to notify me. 11. Emphasized the importance of checking his blood glucose levels frequently and daily and to report to me any blood glucose below 100, so I can adjust his insulin and prevent hypoglycemic episodes 14. Please follow the diet plan exactly without any change. If you don't like something about the plan or you feel hungry you need to communicate with me so I can help you revise the plan. You should not change the plan yourself.
[2024-05-02 08:59] VITALS: BP 120/66; PULSE 98; TEMP 36.6; O2SAT 99; BMI 48.3
== END 2024-05-02 14:04 | disposition home or self-care (01) ==
PROVIDERS: PCP Physician Assistant; Visit Provider Surgery
DX: E66.01 Morbid (severe) obesity due to excess calories (principal); Z68.42 Body mass index [BMI] 45.0-49.9, adult
CPT/HCPCS: 99214

== ENCOUNTER → 2024-05-02 08:51 | Outpatient (BNVA) | payer OTHER, SELFPAY | PROVIDERS: PCP Physician Assistant; Visit Provider Surgery | DX: E66.01 Morbid (severe) obesity due to excess calories (principal); Z68.42 Body mass index [BMI] 45.0-49.9, adult; Z71.3 Dietary counseling and surveillance | CPT/HCPCS: 99212 ==

== ENCOUNTER 2024-05-03 15:13 | Emergency (ER) | payer OTHER, SELFPAY ==
[2024-05-03 15:24] VITALS: BP 109/62; PULSE 104; RESP 18; TEMP 36.8; O2SAT 99; BMI 48.3
--- NOTE | 2024-05-03 15:24 | ED_ITS ---
HPI - General Adult General Chief complaint: Skin/Abscess/Foreign Body Stated complaint: Boil is the middle of the buttocks Time Seen by Provider: 05/03/24 17:34 Source: patient Mode of arrival: ambulatory Limitations: no limitations History of Present Illness ED Provider: mary HPI narrative: Patient is a 38-year-old male with history of CKD, diabetes, HLD, HTN, GERD, BKA, CVA presenting to the ED with report of two painful masses to left side of gluteal cleft for the past few days. Reports similar episode around one month prior but at that time he was able to get the area to drain spontaneously. Has not had any discharge or drainage from the area this most recent time. Denies fevers, chills, body aches. Has been taking warm baths without any change in symptoms. MD complaint: pilonidal cyst Onset (ago): day(s) Location: buttocks Severity: moderate Quality: aching Associated symptoms: denies other symptoms Treatments prior to arrival: heat therapy Related Data Home Medications ?Medication ?Instructions ?Recorded ?Confirmed lancets 28 gauge #100 ea 06/21/20 05/02/24 lisinopril 20 mg tablet 1 tab PO DAILY 12/23/20 05/02/24 Previous Rx's ?Medication ?Instructions ?Recorded blood pressure kit-extra large #1 ea 05/17/20 incontinence pad, liner, disp #18 ea 06/08/20 miscellaneous medical supply 1 ea miscellaneous ONCE 4 weeks #4 03/09/21 ea blood sugar diagnostic (FreeStyle #100 ea 03/21/21 Lite Strips) miscellaneous medical supply 1 ea miscellaneous .once per week 05/23/21 4 weeks #4 ea latex gloves (Latex Gloves, Large) #1,000 ea 08/29/21 miscellaneous medical supply 1 ea miscellaneous DAILY 90 days 08/29/21 #1,000 ea duloxetine 30 mg capsule,delayed 30 mg PO BID #60 caps 02/02/23 release ferrous sulfate 325 mg (65 mg 325 mg PO DAILY #30 tabs 03/16/23 iron) tablet aspirin 81 mg tablet,delayed 81 mg PO DAILY 90 days #90 tabs 06/15/23 release (Adult Aspirin Regimen) blood sugar diagnostic (FreeStyle #100 strips 11/10/23 Lite Strips) blood-glucose sensor (Dexcom G7 #3 ea 09/05/23 Sensor device) spironolactone 25 mg tablet 25 mg PO DAILY 90 days #90 tabs 09/19/23 carvedilol 25 mg tablet 25 mg PO BID #180 tabs 09/24/23 chair, wheel (Wheel chair) #1 ea 10/02/23 manual wheel chair #1 ea 10/02/23 alcohol swabs 1 pad topical QID for diabetes 10/24/23 mellitus #200 pad hydralazine 100 mg tablet 100 mg PO BID #60 tabs 11/08/23 atorvastatin 80 mg tablet 80 mg PO BEDTIME 30 days #30 tabs 11/26/23 cholecalciferol (vitamin D3) 25 25 mcg PO DAILY #30 tabs 11/26/23 mcg (1,000 unit) tablet (Vitamin D3) insulin regular hum U-500 conc 500 40 unit (0.08 mL) subcut TID #6 mL 11/26/23 unit/mL(3 mL) subcut pen (Humulin R U-500 (Conc) Insulin Kwikpen) pen needle, diabetic 31 gauge x #1,200 ea 11/26/23/16 lancets 28 gauge (Easy Touch #100 ea 11/27/23 Lancets) semaglutide 2 mg/dose (8 mg/3 mL) 2 mg (0.75 mL) subcut QWEEK #3 mL 11/27/23 subcutaneous pen injector (Ozempic) Power wheel chair #1 ea 12/24/23 furosemide 20 mg tablet 40 mg (2 x 20 mg) PO DAILY 30 days 01/12/24 #60 tabs melatonin 10 mg tablet 10 mg PO DAILY #30 tabs 01/12/24 acetaminophen 650 mg 1,300 mg (2 x 650 mg) PO Q8H PRN 01/24/24 tablet,extended release pain 90 days #180 tabs tramadol 50 mg tablet 50 mg PO TID PRN pain 30 days #90 01/24/24 tabs famotidine 40 mg tablet 40 mg PO BEDTIME 30 days #30 tabs 02/13/24 gabapentin 800 mg tablet 800 mg PO TID 30 days #90 tabs 03/14/24 nifedipine 90 mg tablet,extended 90 mg PO DAILY 90 days #90 tabs 03/14/24 release 24 hr omeprazole 40 mg capsule,delayed 40 mg PO .night time 90 days #90 03/19/24 release caps cephalexin 500 mg capsule 500 mg PO QID 7 days #28 caps 05/03/24 Allergies Allergy/AdvReac Type Severity Reaction Status Date / Time NSAIDS (Non-Steroidal Allergy Unknown Unknown Verified 05/03/24 15:28 Anti-Inflamma sulfamethoxazole AdvReac Intermediate Elevated Verified 05/03/24 15:28 [From Bactrim] renal functions trimethoprim [From Bactrim] AdvReac Intermediate Elevated Verified 05/03/24 15:28 renal functions Review of Systems 2 Review of Systems: As per HPI. Yes all other systems are reviewed and are negative Constitutional: Constitutional: Reports as per HPI [facility] Past Medical History Medical History Abnormal stress test History of stroke Morbid obesity NOLAN (obstructive sleep apnea) GERD (gastroesophageal reflux disease) HTN (hypertension) Right below-knee amputee Blind left eye Depression Neuropathy CVA (cerebral vascular accident) Sleep apnea Obesity Vitamin D deficiency HLD (hyperlipidemia) GERD (gastroesophageal reflux disease) Below knee amputation Type 2 diabetes mellitus Surgical History Hx of eye surgery History of amputation of right foot Family History Family History Mother Diabetes Father Prostate cancer Paternal Aunt Diabetes Brother No problems noted. Brother No problems noted. Brother No problems noted. Brother No problems noted. Brother No problems noted. Sister No problems noted. Social History Social History Housing: Apartment Alcohol intake: never Patient Tobacco Use Status: Never used Tobacco e-Cigarette/Vaping Use: Never Used Second Hand Smoke Exposure: No Advance Directives: No Advance Directives Information Provided: No service: No Current occupational status: disabled Cognitive needs: Yes (walk, wheelchair (w/c weighs 360lbs)) Hearing needs: No Vision needs: Yes (glasses) Physical Exam ED Vital Signs: Vital Signs - 24 hr 05/03/24 15:24 Temperature 98.2 F Pulse Rate 104 H Respiratory Rate 18 Blood Pressure 109/62 Pulse Oximetry 99 Oxygen Delivery Method Room Air BMI result Body Mass Index 48.3 Vital signs have been reviewed and appear to be correct. Blood pressure normal. Heart rate slightly tachycardic. Respiratory rate normal. Temperature normal. Oxygen saturation normal. Const General: cooperative, healthy appearing and no acute distress Orientation/consciousness: oriented to person, oriented to place, oriented to time and patient oriented x3 Limitations: no limitations HENMT Head: Yes normocephalic and Yes atraumatic Ears: external ears normal General nose exam: Normal external nose present Face and sinus: Yes face symmetric Mouth: oropharynx normal and moist mucous membranes Throat: Yes uvula midline Eyes Pupils: Equal, round and reactive pupils present Neck Neck: Yes normal visual inspection and Yes supple Resp Effort & Inspection: normal respiratory effort and able to speak in complete sentences Auscultation: clear to auscultation bilaterally Cardio Rate: regular rate Rhythm: regular rhythm Heart sounds: S1 normal heart sound present and S2 normal heart sound present GI Palpation (GI): Soft to palpation and nontender Auscultation: normoactive bowel sounds General: Yes no CVA tenderness Back/Spine/Pelvis Back: no CVA tenderness Skin Other: Exam chaperoned by Mellisa quantitative analyst General skin exam: elasticity normal and turgor normal Full body images: 2 1. 2 firm nodules to left side of gluteal cleft, one with slight erythema, no fluctuance, no drainage, no surrounding warmth or erythema Neuro General: oriented to person, oriented to place, oriented to time, patient oriented x3, moves all extremities, no focal motor deficits and CN's II-XI intact bilaterally Cranial nerves: Yes Equal, round and reactive pupils present Cognition (Neuro): normal cognition Extrem Other: rigth BKA General: Yes full ROM, Yes no pedal edema and Yes no calf tenderness Psych Mental Status: mental status grossly normal Affect: normal affect Thought process: Normal thought process present Course Course Course Narrative: This is an RME: Additional HPI, ROS, PE not included below will be deferred to primary provider. RME assessment and note performed by: Sushma Mondragon PA-C This is a 20-sncr-pyb-male, with a hx of CKD, diabetes, HLD, HTN, GERD, BKA, CVA, who presents to the ER with complaints of gluteal cleft lump x 2 days. Pt had this 1 month ago and popped it by himself, reports went away, then developed swelling and pain to this area yesterday. No fevers or chills. sugars have been WNL. Unable to visualize given limited privacy in triage Plan: further ER eval needed for physical exam Medical Decision Making Medical Decision Making [facility] Narrative: Patient is a 38-year-old male with history of CKD, diabetes, HLD, HTN, GERD, BKA, CVA presenting to the ED with report of two painful masses to left side of gluteal cleft for the past few days. On exam patient is awake, A+Ox3, VS WNL, afebrile, normal neurological exam without focal deficits, physical exam findings as above. Given reported symptoms and physical exam findings, initial differential includes abscess, pilonidal cyst, cellulitis. Physical exam findings consistent with pilonidal cysts, no fluctuance noted, I and D not indicated at this time. Given history of diabetes, will start patient on cephalexin. Advised him to continue warm baths. Follow-up with PCP. Return precautions discussed. Patient verbalized understanding of and agreement with plan. Differential Diagnosis Differential Diagnoses: The differential diagnosis associated with the presentation includes As per MDM. External Record Review External record reviewed: Inpatient record, Office record and Outpatient record Prescription Management I considered prescription management with: Antibiotic Discharge Plan Discharge Clinical Impression: Pilonidal cyst Patient Disposition: Home, Self-Care Instructions: Pilonidal Cyst (ED) Additional Instructions: You have been evaluated in the emergency department today for a painful mass on your buttock area, called a pilonidal cyst. Please take your prescribed antibiotics as directed for the full course of the medication. We recommend that you take warm baths several times daily. You can use Tylenol or ibuprofen per package instructions every 6 hours as needed for pain. If necessary, you can alternate these medications so that you can take one medication every 3 hours. For instance, at noon take ibuprofen, then at 3:00 p.m. take Tylenol, then at 6:00 p.m. take ibuprofen. Please schedule an appointment for follow-up with your primary care physician as soon as possible. Return to the emergency department if you experience recurrent vomiting, fevers greater than 100.4? F, increasing area of redness, warmth around the area, foul-smelling discharge from the area, increased tenderness around the area, or any other concerning symptoms. Prescriptions: New cephalexin 500 mg capsule 500 mg PO QID 7 Days Qty: 28 0RF No Action (DME) blood pressure kit-extra large Kit See Rx Instructions .ROUTE .MEDSUPPLY Qty: 1 0RF Rx Instructions: As directed (DME) incontinence pad, liner, disp Pad See Rx Instructions .ROUTE .MEDSUPPLY Qty: 18 0RF Rx Instructions: As directed miscellaneous medical supply [facility] [place] 1 ea miscellaneous ONCE 28 Days Qty: 4 3RF (DME) FreeStyle Lite Strips Strip See Rx Instructions .Route Qty: 100 3RF Rx Instructions: As directed miscellaneous medical supply [facility] [place] 1 ea miscellaneous .once per week 28 Days Qty: 4 2RF (DME) latex gloves [Latex Gloves, Large] Misc See Rx Instructions .ROUTE .MEDSUPPLY Qty: 1000 3RF Rx Instructions: As directed miscellaneous medical supply [facility] [place] 1 ea miscellaneous DAILY 90 Days Qty: 1000 3RF duloxetine 30 mg capsule,delayed release(DR/EC) 30 mg PO BID Qty: 60 0RF ferrous sulfate 325 mg (65 mg iron) tablet 325 mg PO DAILY Qty: 30 6RF (DME) FreeStyle Lite Strips Strip See Rx Instructions .ROUTE .COMPLEX Qty: 100 11RF Dose Instruction: USE TO TEST FINGER STICK BLOOD SUGAR 4 (FOUR) TIMES DAILY Rx Instructions: USE TO TEST FINGER STICK BLOOD SUGAR 4 (FOUR) TIMES DAILY aspirin [Adult Aspirin Regimen] 81 mg tablet,delayed release (DR/EC) 81 mg PO DAILY 90 Days Qty: 90 2RF (DME) Dexcom G7 Sensor Device See Rx Instructions .Route Qty: 3 5RF Rx Instructions: As directed change every 10 days spironolactone 25 mg tablet 25 mg PO DAILY 90 Days Qty: 90 2RF (DME) Wheel chair Kit See Rx Instructions .Route Qty: 1 0RF Rx Instructions: LIFETIME USE (DME) manual wheel chair 20 inch See Rx Instructions .Route .MEDSUPPLY Qty: 1 0RF Rx Instructions: As directed with adjustable leg rests alcohol swabs Pads, Medicated 1 pad topical QID Qty: 200 5RF hydralazine 100 mg tablet 100 mg PO BID Qty: 60 6RF (DME) pen needle, diabetic 31 gauge x 5/16 needle See Rx Instructions .ROUTE BID Qty: 1200 3RF Rx Instructions: As directed atorvastatin 80 mg tablet 80 mg PO BEDTIME 30 Days Qty: 30 11RF cholecalciferol (vitamin D3) [Vitamin D3] 25 mcg (1,000 unit) tablet 25 mcg PO DAILY Qty: 30 11RF Humulin R U-500 (Conc) Kwikpen 500 unit/mL (3 mL) insulin pen 40 unit subcut TID Qty: 6 11RF Ozempic 2 mg/dose (8 mg/3 mL) pen injector 2 mg subcut QWEEK Qty: 3 4RF (DME) lancets [Easy Touch Lancets] 28 gauge misc See Rx Instructions .Route Qty: 100 4RF Rx Instructions: As directed (DME) Power wheel chair See Rx Instructions .Route .MEDSUPPLY Qty: 1 0RF Rx Instructions: As directed furosemide 20 mg tablet 40 mg PO DAILY 30 Days Qty: 60 2RF melatonin 10 mg tablet 10 mg PO DAILY Qty: 30 5RF acetaminophen 650 mg tablet extended release 1,300 mg PO Q8H PRN (Reason: pain) 90 Days Qty: 180 3RF tramadol 50 mg tablet 50 mg PO TID PRN (Reason: pain) 30 Days Qty: 90 3RF famotidine 40 mg tablet 40 mg PO BEDTIME 30 Days Qty: 30 3RF Rx Instructions: increased dose to 40mg To take in the p.m.. nifedipine 90 mg tablet extended release 24hr 90 mg PO DAILY 90 Days Qty: 90 0RF gabapentin 800 mg tablet 800 mg PO TID 30 Days Qty: 90 0RF lisinopril 20 mg tablet 1 tab PO DAILY (DME) lancets 28 gauge misc See Rx Instructions topical QID Qty: 100 Rx Instructions: As directed carvedilol 25 mg tablet 25 mg PO BID Qty: 180 2RF omeprazole 40 mg capsule,delayed release(DR/EC) 40 mg PO .night time 90 Days Qty: 90 1RF Print Language: Zambian
[2024-05-03] MEDS: cephALEXin 500 MG CAPSULE PO (18:17)
[2024-05-03 18:23] VITALS: BP 124/72; PULSE 98; RESP 20; TEMP 36.6; O2SAT 99
[2024-05-03 18:24] VITALS: BP 124/72; PULSE 98; RESP 20; TEMP 36.6; O2SAT 99
== END 2024-05-03 18:24 | disposition home or self-care (01) ==
PROVIDERS: Emergency Provider Emergency Medicine; PCP Physician Assistant
DX: R22.2 Localized swelling, mass and lump, trunk (principal); L05.91 Pilonidal cyst without abscess; E11.22 Type 2 diabetes mellitus with diabetic chronic kidney disease; I12.9 Hypertensive chronic kidney disease with stage 1 through stage 4 chronic kidney disease, or unspecified chronic kidney disease; N18.9 Chronic kidney disease, unspecified
CPT/HCPCS: 99282; 99283

== ENCOUNTER 2024-05-27 12:45 | Outpatient (AMB) | payer OTHER, SELFPAY ==
--- NOTE | 2024-05-27 13:14 | AM.OFFVISNUR ---
Intake Visit Reasons: flu shot Allergies NSAIDS (Non-Steroidal Anti-Inflamma Allergy (Unknown, Verified 05/03/24 15:28) Unknown sulfamethoxazole [From Bactrim] Adverse Reaction (Intermediate, Verified 05/03/24 15:28) Elevated renal functions trimethoprim [From Bactrim] Adverse Reaction (Intermediate, Verified 05/03/24 15:28) Elevated renal functions Office Procedures Flu Questionnaire Does the patient have a severe egg allergy?: No Does the patient have severe life threatening allergies?: No Does the patient have a fever or illness today?: No Has the patient ever had Guillain-[place] Syndrome?: No Has the patient ever had any past reaction to a flu shot?: No Assessment & Plan Assessment & Plan Orders: Orders Influenza [id number] Immunization Today Z23 - Encounter for immunization Medications: New Fluarix Triv [id number] (PF) (flu vacc [id number] 6mos up(PF)) 0.5 mL IM ONCE 0.5 mL 0RF NS Z23 - Encounter for immunization
== END 2024-05-27 13:33 | disposition home or self-care (01) ==
PROVIDERS: PCP Physician Assistant; Visit Provider Physician Assistant
DX: Z23 Encounter for immunization (principal)

== ENCOUNTER → 2024-05-27 12:45 | Outpatient (BNVA) | payer OTHER, SELFPAY | PROVIDERS: PCP Physician Assistant; Visit Provider Physician Assistant | DX: Z23 Encounter for immunization (principal) | CPT/HCPCS: 90471; 90656 ==

== ENCOUNTER 2024-06-16 11:57 | Outpatient (REF) | payer OTHER, SELFPAY ==
[2024-06-16 12:33] LABS: Hematocrit 34.2 % (42.0-52.0); Hemoglobin 11.4 g/dl (14.0-18.0); Mean Corpuscular HGB Conc 33.3 g/dl (31.0-36.0); Mean Corpuscular Hemoglobin 29.2 pg (27.0-33.0); Mean Corpuscular Volume 87.5 fL (80.0-98.0); Mean Platelet Volume 9.7 fL (9.4-12.4); Platelet Count 366 X10*3/uL (160-400); Red Blood Count 3.91 X10*6/uL (4.60-5.80); White Blood Count 6.7 X10*3/uL (4.8-10.8)
[2024-06-16 13:16] LABS: Creatinine Urine 228.45 mg/dL
[2024-06-16 13:17] LABS: Alanine Aminotransferase 35 U/L (0-40); Albumin Level 4.2 g/dL (3.5-5.0); Alkaline Phosphatase 101 U/L (39-117); Anion Gap 13 (12-20); Aspartate Amino Transferase 36 U/L (5-37); Bilirubin Total 0.5 mg/dL (0.0-1.0); Blood Urea Nitrogen 30 mg/dL (9-16); Calcium 9.6 mg/dL (8.4-10.2); Carbon Dioxide 25 mmol/L (22-29); Chloride 105 mmol/L (96-108); Cholesterol 106 mg/dL (<200); Estimated Glomerular Filt Rate 47; Glucose Fasting 182 mg/dL (60-99); HDL Cholesterol 20 mg/dL (>40); Iron 37 mcg/dL (45-160); LDL Cholesterol Calculated 47 mg/dL (<100); Percent Iron Saturation 19 % (15-50); Potassium 3.7 mmol/L (3.3-5.1); Sodium 139 mmol/L (135-145); Total Iron Binding Capacity 200 mcg/dL (228-428); Total Protein 7.7 g/dL (6.5-8.0); Triglycerides 198 mg/dL (<150); Unsaturated Iron Binding 163 ug/dL
[2024-06-16 13:30] LABS: Microalbum/Creatinine Ratio Ur 875.4 ug/mg cr (<30); Microalbumin Urine > 2000.0 mg/L
[2024-06-16 13:34] LABS: Vitamin D 25-OH Total 29.3 ng/mL (>30)
[2024-06-17 08:19] LABS: HIV AB/AG Nonreactive (Nonreactive); HIV Num 1 0.05 S/CO (0.00-0.99)
== END 2024-06-16 11:58 | disposition home or self-care (01) ==
LOC: HO.LAB 11:57
PROVIDERS: PCP Physician Assistant; Visit Provider Physician Assistant
DX: E11.8 Type 2 diabetes mellitus with unspecified complications (principal); I10 Essential (primary) hypertension; E55.9 Vitamin D deficiency, unspecified; E78.5 Hyperlipidemia, unspecified; D50.9 Iron deficiency anemia, unspecified; K21.9 Gastro-esophageal reflux disease without esophagitis; Z11.3 Encounter for screening for infections with a predominantly sexual mode of transmission
CPT/HCPCS: 36415; 80053; 80061; 82043; 82306; 82570; 82947; 83036; 83540; 85027; 87389; 99212

== ENCOUNTER 2024-06-16 12:48 | Outpatient (AMB) | payer OTHER, SELFPAY ==
--- NOTE | 2024-06-16 13:13 | MHC.OFFVIS ---
Vital Signs 06/16/24 13:16 BMI Reason not done Patient refused/unable BP 130/72 Blood Pressure Location Lt radial Position Sitting Pulse 107 H Pulse Source Pulse Oximeter Intake Visit Reasons: f/u Type 2 DM-mv not set up Intake Note: Patient present today to follow up on Type 2 Diabetes Mellitus. Last Diabetic Eye exam: Within the Past 6 months Last Podiatry Visit: [facility] , requesting New Referral. Right foot amputated. Random Glucose: 173 mg/dl HgA1C: 7.0% 06/16/24 Inside Sales Account Manager Required: No Accompanied by: Self / Same As Patient Allergies NSAIDS (Non-Steroidal Anti-Inflamma Allergy (Unknown, Verified 06/16/24 13:17) Unknown sulfamethoxazole [From Bactrim] Adverse Reaction (Intermediate, Verified 06/16/24 13:17) Elevated renal functions trimethoprim [From Bactrim] Adverse Reaction (Intermediate, Verified 06/16/24 13:17) Elevated renal functions Medication List - Last Reconciled 06/16/24 by Flaco Styles MD acetaminophen ER 1,300 mg (2 x 650 mg) PO Q8H PRN 90 days alcohol swabs 1 pad topical QID aspirin (Adult Aspirin Regimen) 81 mg PO DAILY 90 days atorvastatin 80 mg PO BEDTIME 30 days blood pressure kit-extra large As directed blood sugar diagnostic (FreeStyle Lite Strips) As directed blood sugar diagnostic (FreeStyle Lite Strips) USE TO TEST FINGER STICK BLOOD SUGAR 4 (FOUR) TIMES DAILY blood-glucose sensor (Dexcom G7 Sensor device) As directed change every 10 days carvedilol 25 mg PO BID cephalexin 500 mg PO QID 7 days chair, wheel (Wheel chair) LIFETIME USE cholecalciferol (vitamin D3) (Vitamin D3) 25 mcg PO DAILY duloxetine 30 mg PO BID famotidine 40 mg PO BEDTIME 30 days ferrous sulfate 325 mg PO DAILY furosemide 40 mg (2 x 20 mg) PO DAILY 30 days gabapentin 800 mg PO TID 30 days hydralazine 100 mg PO BID incontinence pad, liner, disp As directed insulin regular hum U-500 conc (Humulin R U-500 (Conc) Insulin Kwikpen) 40 units (0.08 mL) subcut TID lancets As directed lancets (Easy Touch Lancets) As directed latex gloves (Latex Gloves, Large) As directed lisinopril 1 tab PO DAILY [manual wheel chair As directed with adjustable leg rests ] melatonin 10 mg PO DAILY miscellaneous medical supply 1 ea miscellaneous ONCE 4 weeks miscellaneous medical supply 1 ea miscellaneous .once per week 4 weeks miscellaneous medical supply 1 ea miscellaneous DAILY 90 days nifedipine ER 90 mg PO DAILY 90 days omeprazole 40 mg PO .night time 90 days pen needle, diabetic As directed [Power wheel chair As directed] semaglutide (Ozempic) 2 mg (0.75 mL) subcut QWEEK spironolactone 25 mg PO DAILY 90 days tramadol 50 mg PO TID PRN 30 days HPI Comments Details: 38 YO M with PMHx T2DM who is seen in F/U for the same. Initially diagnosed with T2DM at the age of 14. Was initially started on treatment with Metformin and Glyburide. Began using Insulin at the age of 20. Current regimen Ozempic 2 mg once a week and Humulin U500 40 units with with breakfast, lunch and dinner. Has DEXCOM G6. 14 days of data downloaded from 09/03/23 through 06/16/24 . This reveals an average glucose of 163 and SD of 40 . He is at goal 70% of the time, above goal 30% of the time, and below goal <1% of the time. No hypoglycemia He has been undergoing evaluation for bariatric surgery, but has not met the weight loss goal so surgery has been put on hold.Waiting on date for surgery Family history of T2DM in his Parents. Has eyes checked yearly,last saw optho 6 mos ago , Has retinopathy. Has neuropathy. Had a R BKA in 2017 due to an infected ulcer. Has nephropathy, on Lisinopril 20 mg PO daily. UAC 431.6 08/14/2022. Has HLD, on Atorvastatin 40 mg PO daily. LDL 79 08/14/2022. Has CAD and a prior CVA. Diet: Very poor. Does not monitor carbohydrates. Admits to drinking sweetened beverages such as juice and sprite all day long. Weight: Has severe obesity. Currently attending [facility]. Labs: Laboratory Tests 08/14/22 08/14/22 08/14/22 15:50 15:50 15:50 Sodium 142 Potassium 4.2 Creatinine 1.59 H Estimated GFR 49 Hemoglobin A1c % 7.5 LDL Cholesterol Direct 79 25-OH Vitamin D Total 26.6 Microalb/Creat Ratio 08/14/22 16:15 Sodium Potassium Creatinine Estimated GFR Hemoglobin A1c % LDL Cholesterol Direct 25-OH Vitamin D Total Microalb/Creat Ratio 431.6 [facility] Medical History Abnormal stress test History of stroke Morbid obesity NOLAN (obstructive sleep apnea) GERD (gastroesophageal reflux disease) HTN (hypertension) Right below-knee amputee Blind left eye Depression Neuropathy CVA (cerebral vascular accident) Sleep apnea Obesity Vitamin D deficiency HLD (hyperlipidemia) GERD (gastroesophageal reflux disease) Below knee amputation Type 2 diabetes mellitus Surgical History Hx of eye surgery History of amputation of right foot Family History Mother Diabetes Father Prostate cancer Paternal Aunt Diabetes Brother No problems noted. Brother No problems noted. Brother No problems noted. Brother No problems noted. Brother No problems noted. Sister No problems noted. Social History Housing: Apartment Alcohol intake: never Patient Tobacco Use Status: Never used Tobacco e-Cigarette/Vaping Use: Never Used Second Hand Smoke Exposure: No service: No Current occupational status: disabled Cognitive needs: Yes (walk, wheelchair (w/c weighs 360lbs)) Hearing needs: No Vision needs: Yes (glasses) Physical Exam Vital Signs: Last Vital Signs Pulse 107 H 06/16/24 13:16 BP 130/72 06/16/24 13:16 Absence of Cushingoid features. Absence of acromegalic features. Neck exam reveals nl size thyroid about 15 gms. No thyroid nodules palpable. No carotid bruits present. Lungs CTA. Heart S1 S2, Reg R/R. No M/R/ G. Skin exam reveals absence of vitiligo or acanthosis nigricans. Abdominal exam reveals Soft NT/ND with NA BS. No organomegaly present. Neck Other: . Extrem Other: Visual exam of foot performed. R BKA LLE 3 + edema No ulcerations or open lesions. No onchomycosis, no callouses.Pulses 2 + distally Sensation intact to monofilament exam. Vibratory sensation sensed is decreased with 128 Hz tuning fork Results AMB Hemoglobin A1c AMB Hemoglobin A1c 7.0 % Last Edit by YUNI Vu on 06/16/24 13:32 Results Reviewed Results Reviewed: Laboratory Last Values Glucose (Clinic) 173 mg/dL (60-115) H 06/16/24 13:23 Assessment & Plan Assessment & Plan (1) Type 2 diabetes mellitus with unspecified complications: Code(s): E11.8 - Type 2 diabetes mellitus with unspecified complications Category: Medical Plan: This is a 38-year-old black male with a history of type 2 diabetes being treated with U-500 insulin and Ozempic with excellent improved glycemic control with known microvascular and macrovascular complications including retinopathy, neuropathy, nephropathy, CAD and CVA. Plan is to continue the current regimen . Will have follow-up with Shira Linda NP in 2 mos Orders: Orders AMB Hemoglobin A1c Today E11.8 - Type 2 diabetes mellitus with unspecified complications Coding Level of Care Code Est Pt Level 4 (71903) Complex EM visit Add On G2211 Diagnoses Type 2 diabetes mellitus with unspecified complications E11.8
[2024-06-16 13:16] VITALS: BP 130/72; PULSE 107
[2024-06-16 13:27] LABS: Glucose, Whole Blood 173 mg/dL (60-115)
== END 2024-06-16 13:45 | disposition home or self-care (01) ==
PROVIDERS: PCP Physician Assistant; Visit Provider Internal Medicine Endocrinology, Diabetes & Metabolism
DX: E11.8 Type 2 diabetes mellitus with unspecified complications (principal)
CPT/HCPCS: 99214; G2211

== ENCOUNTER → 2024-06-24 14:03 | Outpatient (BNVA) | payer OTHER, SELFPAY | PROVIDERS: PCP Physician Assistant; Visit Provider Surgery ==

== ENCOUNTER 2024-06-27 08:51 | Outpatient (AMB) | payer OTHER, SELFPAY ==
--- NOTE | 2024-06-27 08:57 | A.OFFVIS_ITS ---
VS Expanded 06/27/24 09:06 BP 141/73 H Blood Pressure Location Rt brachial Blood Pressure Position Sitting Pulse 95 Pulse Source Pulse Oximeter Temp 98.0 F Temperature Source Temporal Artery Scan Pulse Oximetry 98 Oxygen Delivery Method Room Air Height 5 ft 9 in Weight 315 lb 6.4 oz BMI 46.6 Intake Visit Reasons: OV Follow Up SWL Allergies NSAIDS (Non-Steroidal Anti-Inflamma Allergy (Unknown, Verified 06/27/24 09:08) Unknown sulfamethoxazole [From Bactrim] Adverse Reaction (Intermediate, Verified 06/27/24 09:08) Elevated renal functions trimethoprim [From Bactrim] Adverse Reaction (Intermediate, Verified 06/27/24 09:08) Elevated renal functions Medication List - Last Reconciled 06/27/24 by Neri Hays MD acetaminophen ER 1,300 mg (2 x 650 mg) PO Q8H PRN 90 days alcohol swabs 1 pad topical QID aspirin (Adult Aspirin Regimen) 81 mg PO DAILY 90 days atorvastatin 80 mg PO BEDTIME 30 days blood pressure kit-extra large As directed blood sugar diagnostic (FreeStyle Lite Strips) As directed blood sugar diagnostic (FreeStyle Lite Strips) USE TO TEST FINGER STICK BLOOD SUGAR 4 (FOUR) TIMES DAILY blood-glucose sensor (Seamless G7 Sensor device) As directed change every 10 days carvedilol 25 mg PO BID cephalexin 500 mg PO QID 7 days chair, wheel (Wheel chair) LIFETIME USE cholecalciferol (vitamin D3) (Vitamin D3) 25 mcg PO DAILY duloxetine 30 mg PO BID famotidine 40 mg PO BEDTIME 30 days ferrous sulfate 325 mg PO DAILY furosemide 40 mg (2 x 20 mg) PO DAILY 30 days gabapentin 800 mg PO TID 30 days hydralazine 100 mg PO BID incontinence pad, liner, disp As directed insulin regular hum U-500 conc (Humulin R U-500 (Conc) Insulin Kwikpen) 40 units (0.08 mL) subcut TID lancets As directed lancets (Easy Touch Lancets) As directed latex gloves (Latex Gloves, Large) As directed lisinopril 1 tab PO DAILY [manual wheel chair As directed with adjustable leg rests ] melatonin 10 mg PO DAILY miscellaneous medical supply 1 ea miscellaneous ONCE 4 weeks miscellaneous medical supply 1 ea miscellaneous .once per week 4 weeks miscellaneous medical supply 1 ea miscellaneous DAILY 90 days nifedipine ER 90 mg PO DAILY 90 days omeprazole 40 mg PO .night time 90 days pen needle, diabetic As directed [Power wheel chair As directed] semaglutide (Ozempic) 2 mg (0.75 mL) subcut QWEEK spironolactone 25 mg PO DAILY 90 days tirzepatide (weight loss) (Zepbound) 2.5 mg (0.5 mL) subcut QWEEK tramadol 50 mg PO TID PRN 30 days HPI Comments Details: Overall weight loss: 39.6lbs or 11.15% TBWL Is doing one protein shake, 3 protein bars and one meal for dinner Exercise: very limited as he is wheelchair bound due to his amputation COUNT INCLUDES THE [facility] Medical History Abnormal stress test History of stroke Morbid obesity NOLAN (obstructive sleep apnea) GERD (gastroesophageal reflux disease) HTN (hypertension) Right below-knee amputee Blind left eye Depression Neuropathy CVA (cerebral vascular accident) Sleep apnea Obesity Vitamin D deficiency HLD (hyperlipidemia) GERD (gastroesophageal reflux disease) Below knee amputation Type 2 diabetes mellitus Surgical History Hx of eye surgery History of amputation of right foot Family History Mother Diabetes Father Prostate cancer Paternal Aunt Diabetes Brother No problems noted. Brother No problems noted. Brother No problems noted. Brother No problems noted. Brother No problems noted. Sister No problems noted. Social History Housing: Apartment Alcohol intake: never Patient Tobacco Use Status: Never used Tobacco e-Cigarette/Vaping Use: Never Used Second Hand Smoke Exposure: No service: No Current occupational status: disabled Cognitive needs: Yes (walk, wheelchair (w/c weighs 360lbs)) Hearing needs: No Vision needs: Yes (glasses) Physical Exam Vital Signs: Last Vital Signs Temp 98.0 F 06/27/24 09:06 Pulse 95 06/27/24 09:06 BP 141/73 H 06/27/24 09:06 Pulse Ox 98 06/27/24 09:06 Oxygen Delivery Method Room Air 06/27/24 09:06 BMI result Body Mass Index 46.6 GI Inspection: Yes normal to inspection and Yes obesity Palpation (GI): Soft to palpation (softer than previous exam) Assessment & Plan Assessment & Plan (1) Morbid obesity: Code(s): E66.01 - Morbid (severe) obesity due to excess calories Category: Medical Plan: The patient has made substantial progress despite his limitations. However, more weight loss is required and that is difficult given he cannot exercise due to his below the knee amputation. The patient has been in our practice for nearly 3 years participating in our multidisciplinary program. In addition, he is not a candidate for Phentermine as he has an elevated blood pressure and he has a history of severe hypertension and is on 5 anti-hypertensive medications. In addition, he is on Ozempic with a modest result. Therefore I believe he is a very good candidate for the Zepbound which I will order and I hope that it will be approved by his insurance. We discussed the common side effects of this medication including constipation, nausea, diarrhea, abdominal pain or GERD. We also discussed the need to monitor his blood sugar as it may interfere with his diabetes management and needs to report to me any blood sugar below 100. The plan was discussed with the patient and he is in agreement with the plan. Medications: New tirzepatide (weight loss) (Zepbound) for 4 weeks 2.5 mg (0.5 mL) subcut QWEEK 2 mL 0RF E66.01 - Morbid (severe) obesity due to excess calories
[2024-06-27 09:06] VITALS: BP 141/73; PULSE 95; TEMP 36.7; O2SAT 98; BMI 46.6
== END 2024-06-27 12:01 | disposition home or self-care (01) ==
LOC: HO.HBS 08:51
PROVIDERS: PCP Physician Assistant; Visit Provider Surgery
DX: E66.01 Morbid (severe) obesity due to excess calories (principal); E66.813 Obesity, class 3; Z68.42 Body mass index [BMI] 45.0-49.9, adult
CPT/HCPCS: 99214

== ENCOUNTER → 2024-06-27 08:51 | Outpatient (BNVA) | payer OTHER, SELFPAY | PROVIDERS: PCP Physician Assistant; Visit Provider Surgery | DX: E66.01 Morbid (severe) obesity due to excess calories (principal); Z68.42 Body mass index [BMI] 45.0-49.9, adult | CPT/HCPCS: 99212 ==

== ENCOUNTER → 2024-07-22 13:51 | Outpatient (BNVA) | payer OTHER, SELFPAY | PROVIDERS: PCP Physician Assistant; Visit Provider Physician Assistant Surgical ==

== ENCOUNTER 2024-07-22 14:13 | Outpatient (REF) | payer OTHER, SELFPAY | END 2024-07-22 14:14 | disposition home or self-care (01) | LOC: HO.LAB 14:13 | PROVIDERS: PCP Physician Assistant; Visit Provider Physician Assistant | DX: Z13.89 Encounter for screening for other disorder (principal) ==

== ENCOUNTER 2024-07-29 13:42 | Outpatient (REF) | payer OTHER, SELFPAY ==
[2024-07-29 15:24] LABS: Cholesterol 111 mg/dL (<200); HDL Cholesterol 27 mg/dL (>40); LDL Cholesterol Calculated 60 mg/dL (<100); Triglycerides 124 mg/dL (<150)
[2024-07-30 10:45] LABS: CT PCR NOT DETECTED (Not Detect.); NG PCR NOT DETECTED (Not Detect.)
[2024-07-31 14:04] LABS: Syphilis Screen Nonreactive (Nonreactive)
[2024-07-31 15:07] LABS: HIV AB/AG Nonreactive (Nonreactive); HIV Num 1 0.11 S/CO (0.00-0.99)
== END 2024-07-29 13:43 | disposition home or self-care (01) ==
LOC: HO.LAB 13:42
PROVIDERS: PCP Physician Assistant; Visit Provider Physician Assistant
DX: E78.5 Hyperlipidemia, unspecified (principal); Z20.2 Contact with and (suspected) exposure to infections with a predominantly sexual mode of transmission; Z11.3 Encounter for screening for infections with a predominantly sexual mode of transmission
CPT/HCPCS: 80061; 86780; 87389; 87491; 87591

== ENCOUNTER → 2024-08-18 13:39 | Outpatient (BNVA) | payer OTHER, SELFPAY | PROVIDERS: PCP Physician Assistant; Visit Provider Physician Assistant Surgical ==

== ENCOUNTER 2024-09-09 10:09 | Outpatient (AMB) | payer OTHER, SELFPAY ==
[2024-09-09 10:32] VITALS: BP 140/80; PULSE 89; O2SAT 98; BMI 44.3
--- NOTE | 2024-09-09 10:32 | MHC.OFFVIS ---
Vital Signs 09/09/24 10:32 Height 5 ft 9 in Weight 300 lb BMI 44.3 BP 140/80 H Blood Pressure Location Lt brachial Position Sitting Pulse 89 Pulse Source Pulse Oximeter Pulse Oximetry (%) 98 Oxygen Delivery Method Room Air Intake Visit Reasons: sleep apnea Intake Note: pt is here for follow up of NOLAN, and he states he uses his machine every night. Personnel Scheduler Required: No Allergies NSAIDS (Non-Steroidal Anti-Inflamma Allergy (Unknown, Verified 09/09/24 10:35) Unknown sulfamethoxazole [From Bactrim] Adverse Reaction (Intermediate, Verified 09/09/24 10:35) Elevated renal functions trimethoprim [From Bactrim] Adverse Reaction (Intermediate, Verified 09/09/24 10:35) Elevated renal functions Medication List - Last Reconciled 09/09/24 by Malu Anderson MD acetaminophen ER 1,300 mg (2 x 650 mg) PO Q8H PRN 90 days alcohol swabs 1 pad topical QID aspirin (Adult Aspirin Regimen) 81 mg PO DAILY 90 days atorvastatin 80 mg PO BEDTIME 30 days blood pressure kit-extra large As directed blood sugar diagnostic (FreeStyle Lite Strips) As directed blood sugar diagnostic (FreeStyle Lite Strips) USE TO TEST FINGER STICK BLOOD SUGAR 4 (FOUR) TIMES DAILY blood-glucose sensor (9Flava G7 Sensor device) As directed change every 10 days carvedilol 25 mg PO BID cephalexin 500 mg PO QID 7 days chair, wheel (Wheel chair) LIFETIME USE cholecalciferol (vitamin D3) (Vitamin D3) 25 mcg PO DAILY duloxetine 30 mg PO BID famotidine 40 mg PO BEDTIME 30 days ferrous sulfate 325 mg PO DAILY furosemide 40 mg (2 x 20 mg) PO DAILY 30 days gabapentin 800 mg PO TID 30 days hydralazine 100 mg PO BID incontinence pad, liner, disp As directed insulin regular hum U-500 conc (Humulin R U-500 (Conc) Insulin Kwikpen) 40 units (0.08 mL) subcut TID lancets (Easy Touch Lancets) As directed lancets As directed latex gloves (Latex Gloves, Large) As directed lisinopril 1 tab PO DAILY [manual wheel chair As directed with adjustable leg rests ] melatonin 10 mg PO DAILY miscellaneous medical supply 1 ea miscellaneous ONCE 4 weeks miscellaneous medical supply 1 ea miscellaneous .once per week 4 weeks miscellaneous medical supply 1 ea miscellaneous DAILY 90 days nifedipine ER 90 mg PO DAILY 90 days omeprazole 40 mg PO .night time 90 days pen needle, diabetic As directed [Power wheel chair As directed] spironolactone 25 mg PO DAILY 90 days tirzepatide (weight loss) (Zepbound) 2.5 mg (0.5 mL) subcut QWEEK tirzepatide (weight loss) (Zepbound) 5 mg (0.5 mL) subcut QWEEK tramadol 50 mg PO TID PRN 30 days walker (Ultra-Light Rollator misc) As directed [Walker repair As directed] Do you need a note to return to daycare/school/sports/work: No HPI HPI sleep apnea: Details: This 39 years old gentleman who is morbidly obese, has impaired locomotion and has had right below-knee amputation, He is a case of severe obstructive sleep apnea, which is being treated with use of CPAP. Patient has been very compliant in using the CPAP, and sleeps well. He has old [employer] model and it does not transmit the data to print compliance report. He denies any difficulty. With the mask or the machine For weight reduction he is trying to do his best in controlling diet and has recently been started on ZEPBOUND THERAPY. REMAINS IN MOTORIZED CHAIR , AND REMAINS IN GOOD SPIRITS. [facility] Medical History Abnormal stress test History of stroke Morbid obesity NOLAN (obstructive sleep apnea) GERD (gastroesophageal reflux disease) HTN (hypertension) Right below-knee amputee Blind left eye Depression Neuropathy CVA (cerebral vascular accident) Sleep apnea Obesity Vitamin D deficiency HLD (hyperlipidemia) GERD (gastroesophageal reflux disease) Below knee amputation Type 2 diabetes mellitus Surgical History Hx of eye surgery History of amputation of right foot Family History Mother Diabetes Father Prostate cancer Paternal Aunt Diabetes Brother No problems noted. Brother No problems noted. Brother No problems noted. Brother No problems noted. Brother No problems noted. Sister No problems noted. Social History Housing: Apartment Alcohol intake: never Patient Tobacco Use Status: Never used Tobacco e-Cigarette/Vaping Use: Never Used Second Hand Smoke Exposure: No service: No Current occupational status: disabled Cognitive needs: Yes (walk, wheelchair (w/c weighs 360lbs)) Hearing needs: No Vision needs: Yes (glasses) Review of Systems Const All systems reviewed & are unremarkable except as noted in HPI and below Reports snoring (Much less since he is using CPAP) Eyes Reports no additional complaints ENT Reports no additional complaints Card Denies chest pain, Denies irregular heart rhythm and Denies leg edema Resp Reports no additional complaints, Denies cough, Reports snoring (Much less since he is using CPAP) and Denies wheezing GI Reports heartburn (Being treated for GERD) Reports no additional complaints Musc Reports abnormal gait (Non ambulatory mostly in the powered wheelchair), Reports back pain and Reports muscle weakness Skin/Breast Reports system reviewed and no additional complaints, except as documented Neuro Reports abnormal gait (Non ambulatory mostly in the powered wheelchair) Psych Reports no additional complaints Aller/Immun Denies wheezing Physical Exam Vital Signs: Last Vital Signs Pulse 89 09/09/24 10:32 BP 140/80 H 09/09/24 10:32 Pulse Ox 98 09/09/24 10:32 Oxygen Delivery Method Room Air 09/09/24 10:32 BMI result Body Mass Index 44.3 He is obviously morbidly obese, with a round face. He is in powered wheelchair, Const General: comfortable, no acute distress, alert and awake Orientation/consciousness: patient oriented x3 HEENT Head: Yes normal to inspection General nose exam: No nasal polyps present and No nasal discharge present Face and sinus: Yes sinuses nontender Mouth: oropharynx abnormals (Very crowded and narrow oropharynx, Mallampati class 4) Throat: Yes posterior oropharynx normal Eyes General: appearance normal, both eyes and all related structures Neck Neck: Yes normal visual inspection, Yes no lymphadenopathy, Yes trachea midline and Yes no JVD Thyroid: Thyroid normal Chest Chest palpation & inspection: normal inspection of the chest, normal palpation of entire chest wall and no tenderness Resp Other: Percussion note is not perceptible, breath sounds are distant because of the thick chest wall. But no wheezes or rhonchi are heard. Cardio Palpation: PMI not normal (Not palpable) Rate: regular rate Rhythm: regular rhythm Heart sounds: no gallops and no murmurs Peripheral pulses: Peripheral pulses 2+ throughout GI Palpation (GI): Soft to palpation, nontender, No hepatosplenomegaly present, no masses and Other GI palpation findings present (Abdomen grossly obese and protuberant) Auscultation: normal bowel sounds Back/Spine/Pelvis Thoracic/Lumbar Spine: thoracic and lumbar spine normal to inspection and thoraco-lumbar ROM limited Skin General skin exam: no rashes or lesions noted Neuro General: patient oriented x3, No gait normal (Non ambulatory) and no focal motor deficits Cranial nerves: Yes CN's II-XII intact bilaterally Extrem Other: Right leg amputee. General: Yes normal to inspection, Yes no clubbing, cyanosis or edema, Yes no calf tenderness and Yes edema (PUFFINESS AROUND THE LEFT ANKLE, WITH QUESTIONABLE STASIS EDEMA.) Psych Appearance: grossly normal and well kempt Speech and movement: Normal speech and movement present Results Reviewed Results Reviewed: COMPLIANCE REPORT IS NOT PRINTABLE. BUT ACCORDING TO HIS STATEMENT HE IS A 100% USER OF CPAP EVERY NIGHT. Assessment & Plan Assessment & Plan (1) Morbidly obese: Comment: PATIENT REMAINS MORBIDLY OBESE, HE IS SEDENTARY, MOSTLY IN THE POWERED WHEELCHAIR RECENTLY STARTED ON ZEPBOUND THERAPY, Code(s): E66.01 - Morbid (severe) obesity due to excess calories Category: Medical Plan: ENCOURAGED TO WATCH HIS DIET AND LOSE MUCH WEIGHT HE CAN (2) NOLAN (obstructive sleep apnea): Comment: PATIENT HAS LONG-STANDING HISTORY OF OBSTRUCTIVE SLEEP APNEA, EXPECTED FROM HIS MORBID OBESITY. * SLEEP STUDY CONFIRMED PRESENCE OF MODERATELY SEVERE NOLAN, WITH MINIMAL NOCTURNAL HYPOXEMIA. PATIENT HAS BEEN ON CPAP THERAPY WITH AUTOPAP MODE ( 6-20 CMs ) COMPLIANCE DATA NOT AVAILABLE BUT THE PATIENT CLAIMS THAT HE IS USING IT REGULARLY EVERY NIGHT, AND SLEEPS GOOD. CLINICALLY HE IS DEFINITELY BENEFITTING FROM THE USE OF CPAP . Code(s): G47.33 - Obstructive sleep apnea (adult) (pediatric) Category: Medical Plan: ENCOURAGED TO USE CPAP EVERY NIGHT,, DO USE THE DISTILLED WATER FOR HUMIDIFICATION. Coding Level of Care Code Est Pt Level 3 (98295) Diagnoses Morbidly obese E66.01 NOLAN (obstructive sleep apnea) G47.33
--- OUTSIDE RECORDS SUMMARY | 2024-09-09 10:52 | XMS_ITS | Encounter Summary ---
Author Organization [facility], Address [address] [place] [address] Phone Care Team Providers Care Livestock Inspector Name Role Phone Clay Guevara Primary Care Provider [phone] Reason for Visit * Reason Comments Med Refill Encounter Details Date Type Department Care Team (Late st Contact Info) Description 11/19/2023 Refill [facility], [address] [place] [phone] Lucio Hancock MD [address] [place] [phone] Social History Tobacco Use Types Packs/Day Years Used Date Smoking Tobacco: Never Alcohol Use Standard Drinks/Week Comments Yes 0 (1 standard drink = 0.6 oz pure alcohol) Alcoholic Drinks/day: Occasional social drink Sex and Gender Information Value Date Recorded Sex Assigned at Not on file Legal Sex Male 4:31 PM EST Gender Identity Not on file Sexual Orientation Not on file documented as of this encounter Plan of Treatment Not on file documented as of this encounter Visit Diagnoses Not on filedocumented in this encounter Care Teams Livestock Inspector Relationship Specialty Start Date End Date Clay Guevara PA [address], [address] [place], [place] [phone] PCP - General Physician Electronic Sensing Equipment Assembler 06/23/20 documented as of this encounter
--- OUTSIDE RECORDS SUMMARY | 2024-09-09 10:52 | XMS_ITS | Encounter Summary ---
Author Organization [facility], Address [address] [place] [address] Phone Care Team Providers Care Grinder Chipper Name Role Phone Clay Guevara Primary Care Provider [phone] Reason for Visit * Reason Comments Med Refill Encounter Details Date Type Department Care Team (Late st Contact Info) Description 12/15/2023 Refill [facility], [address] [place] [phone] Luico Hancock MD [address] [place] [phone] Social History Tobacco Use Types Packs/Day Years [...] on filedocumented in this encounter Care Teams Grinder Chipper Relationship Specialty Start Date End Date Clay Guevara PA [address], [address] [place], [place] [phone] PCP - General Physician Fuel Efficient Automobile Designer 06/23/20 documented as of this encounter
--- OUTSIDE RECORDS SUMMARY | 2024-09-09 10:53 | XMS_ITS | Encounter Summary ---
Author Organization [facility], Address [address] [place] [address] Phone Care Team Providers Care Lumber Press Operator Name Role Phone Clay Guevara Primary Care Provider [phone] Reason for Visit * Reason Onset Date Comments retirement visit 08/14/2019 CKDIII/HTN Encounter Details Date Type Department Care Team (Late st Contact Info) Description 08/14/2019 Documentation Only [facility] [address] [place] [phone] Connie Stafford PA retirement visit (CKDIII/HTN) Social History Tobacco Use Types Packs/Day Years Used Date Smoking Tobacco: Never Assessed Sex and Gender Information Value Date Recorded Sex Assigned at Not on file Legal Sex Male 4:31 PM EST Gender Identity Not on file Sexual Orientation Not on file documented as of this encounter Plan of Treatment Not on file documented as of this encounter Visit Diagnoses Not on filedocumented in this encounter Care Teams Lumber Press Operator Relationship Specialty Start Date End Date Clay Guevara PA [address], [address] [place] [id number] PCP - General Physician Asphalt Screed Operator 06/23/20 documented as of this encounter
--- OUTSIDE RECORDS SUMMARY | 2024-09-09 10:53 | XMS_ITS | Encounter Summary ---
Author Organization [facility], Address [address] [place] [address] Phone Care Team Providers Care Inside Barrel Polisher Name Role Phone Clay Guevara Primary Care Provider [phone] Encounter Details Date Type Department Care Team (Late st Contact Info) Description 04/28/2021 Documentation Only [facility], [address] [place] [address] Connie Stafford PA Social History Tobacco Use Types Packs/Day Years [...] on filedocumented in this encounter Care Teams Inside Barrel Polisher Relationship Specialty Start Date End Date Clay Guevara PA [address], [address] [place], [place] [phone] PCP - General Physician Eddy Current Inspector 06/23/20 documented as of this encounter
--- OUTSIDE RECORDS SUMMARY | 2024-09-09 10:53 | XMS_ITS | Clinical Summary ---
Author Organization [facility], Address [address] [place] [address] Phone Care Team Providers Care Can Repairer Name Role Phone Clay Guevara Primary Care Provider [phone] Allergies Active Allergy Reactions Criticality Noted Date Comments Nsaids Other (see comments) 03/05/2020 Medications insulin lispro (HumaLOG) 100 UNIT/ML injection Inject 15-23 Units under the skin 3 (three) times a day before meals Active omeprazole (PriLOSEC) [address] capsule Take 40 mg by mouth 2 (two) times a day Active DULoxetine HCl 30 MG Capsule Delayed Release Sprinkle Take 30 mg by mouth 2 (two) times a day Active hydrALAZINE (APRESOLINE) 100 MG tablet Take 100 mg by mouth 2 (two) times a day Active Cholecalciferol (Vitamin D) 25 MCG (1000 UT) tablet Take by mouth 1 (one) time each day Active ferrous sulfate 325 (65 Fe) MG tablet Take by mouth 1 (one) time each day Active NIFEdipine CC (ADALAT CC) 90 MG 24 hr tablet Take 90 mg by mouth daily Do not crush, chew, or split. Active Aspirin Low Dose 81 MG EC tablet TAKE 1 TABLET (81 MG TOTAL) BY MOUTH 1 (ONE) TIME EACH DAY 30 tablet 2 0 Active furosemide (LASIX) 40 MG tablet Take 40 mg by mouth 1 (one) time each day 1 Active carvedilol (COREG) 25 MG tablet Take 25 mg by mouth in the morning and 25 mg in the evening. Take with meals. 1 Active traMADol (ULTRAM) 50 MG tablet 50 MG BY MOUTH TWICE A DAY FOR PAIN 1 Active [facility] Melatonin 10 MG capsule Take 1 tablet by mouth 1 (one) time each day 1 Active Lancets (freestyle) lancets USE TO PRICK FINGERTIPS FOR BLOOD GLUCOSE TESTING UP TO 4 TIMES A DAY, E11.65 0 Active HumuLIN R U-500 KWIKPEN 500 UNIT/ML CONCENTRATED injection 100 units with breakfast, 80 units with lunch and 100 units with dinner. 1 Active B-D ULTRAFINE III SHORT PEN 31G X 8 MM misc USE TO INJECT HUMULIN 2 TIMES DAILY 0 Active FREESTYLE LITE test strip 1 Active gabapentin (NEURONTIN) 600 MG tablet Take 600 mg by mouth twice a day 1 Active dorzolamide-delonte lol (COSOPT) 22.3-6.8 MG/ML ophthalmic solution INSTILL 1 DROP INTO RIGHT EYE TWICE A DAY 0 Active spironolactone (ALDACTONE) 25 MG tablet Take 25 mg by mouth 1 (one) time each day 1 Active atorvastatin (LIPITOR) 80 MG tablet Take 40 mg by mouth every night Active insulin regular (HumuLIN R) 500 UNIT/ML patient supplied pump Inject 300 Units under the skin in the morning. Active thiamine (,VITAMIN B-1,) 100 MG tablet Take 100 mg by mouth 1 (one) time each day 2 Active DULoxetine (CYMBALTA) [address] capsule TAKE ONE CAPSULE BY MOUTH two (2) times a day 2 Active famotidine (PEPCID) 20 MG tablet TAKE ONE TABLET BY MOUTH DAILY. use as alternative to second dose of protonix 2 Active lisinopril 20 MG tablet Take 1 tablet (20 mg total) by mouth 1 (one) time each day 90 tablet 3 4 02/04/20 25 Active Active Problems Problem Noted Date Diagnosed Date Stage 3a chronic kidney disease 03/05/2020 Overview (10/06/2020): Update for Diagnosis Load Renal disorder due to type 2 diabetes mellitus Overview (10/06/2020): with diabetic neuropathy and nonproliferative retinopathy with macular edema Proteinuria Essential hypertension Resolved Problems Problem Noted Date Diagnosed Date Resolved Date Sleep apnea 10/06/2020 11/04/2020 Obesity 10/06/2020 11/04/2020 Lymphedema 10/06/2020 11/04/2020 Acute nontraumatic kidney injury 10/06/2020 11/04/2020 Vitamin D deficiency 021 TIA 07/07/2020 Overview (03/05/2020): recurrent TIA's Serum creatinine above reference range 11/04/2020 Iron deficiency anemia 08/29 Glycosuria 07/07/2020 Hyperkalemia 11/04/2020 Edema 11/04/2020 Diastolic dysfunction 2020 Family History Medical History Relation Comments Prostate cancer Father Prostate cancer Father's Brother 1 Prostate cancer Father's Brother 2 Diabetes type II Maternal Grandmother Diabetes Mother Diabetes type II Mother Hyperlipidemia Mother Hypertension Mother Diabetes type II Mother's Sister Diabetes Sibling Hypertension Sibling Relation Status Comments Father Alive Father's Brother 1 Father's Brother 2 Maternal Grandmother Mother Alive Mother's Sister Sibling Social History Tobacco Use Types Packs/Day Years Used Date Smoking Tobacco: Never Alcohol Use Standard Drinks/Week Comments Yes 0 (1 standard drink = 0.6 oz pure alcohol) Alcoholic Drinks/day: Occasional social drink Sex and Gender Information Value Date Recorded Sex Assigned at Not on file Legal Sex Male 4:31 PM EST Gender Identity Not on file Sexual Orientation Not on file Last Filed Vital Signs Vital Sign Reading Time Taken Comments Blood Pressure 145/64 10/27/2021 3:34 PM EDT Pulse 91 10/27/2021 3:34 PM EDT Temperature - - Respiratory Rate - - Oxygen Saturation - - Inhaled Oxygen Concentration - - Weight - - Height - - Body Mass Index - - Plan of Treatment Health Maintenance Due Date Last Done Comments Pneumococcal Vaccine: Pediat rics (0 to 5 Years) and At-Risk Patients (6 to 64 Years) (1 of 2 - PCV) 1990 Hepatitis B Vaccine (1 of 3 - 19+ 3-dose series) 08/15 Diabetes: Ophthalmology Exam 03/05/2020 Diabetes: Pedal Pulse Checked 03/05/2020 Diabetes: Sensory Foot Exam 03/05/2020 Diabetes: Visual Foot Exam 03/05/2020 Diabetes: Hemoglobin A1C 01/27/2022 10/27/2021 Influenza Vaccine (#1) 2024 Procedures Procedure Name Priority Date/Time Associated Diagnosis Comments HEMOGLOBIN A1C Routine 10/27/2021 3:46 PM EDT Stage 3b chronic kidney disease (HCC) from Last 3 Months or Most Recently Relevant to Health Maintenance Results * (ABNORMAL) Hemoglobin A1c (10/27/2021 3:46 PM EDT) Hemoglobin A1C 7.5(H) (4.0-5.6) % [facility] Comment: MONITORING: In known diabetic patients, hemoglobin A1c targets should be discussed with health care provider. DIAGNOSTIC USE: ??The [place] Diabetes Association (ADA) and the World Health Organization (WHO) recommend the use of HbA1c to diagnose diabetes using a threshold of 6.5%. Patients who have an HbA1c between 5.7% and 6.4% are considered at increased risk for developing diabetes in the future. CAUTION: Falsely low HbA1c results may be observed in patients with hemolytic anemia, homozygous forms of abnormal hemoglobin (e.g. SS, CC, SC), , recent blood loss or hemoglobin F greater than 7%. Fructosamine may be used as an alternate test in these cases. REFERENCE: ADA: Standards of Medical Care in Diabetes 2020, The Journal of Clinical and Applied Research and Education Volume 43, Supplement 1 Testing performed or reported by [facility], a Service of [facility], [address] [place] [id number] Marco Delgado MD, Principal Biostatistician [facility]# [id number] Blood (Blood, Venous) 10/27/2021 3:46 PM EDT 10/27/2021 4:03 PM EDT us Connie [facility] LAB BLOOD ORDERABLES Final Res ult [facility] from Last 3 Months or Most Recently Relevant to Health Maintenance Insurance [facility] Care Teams Can Repairer Relationship Specialty Start Date End Date Clay Guevara PA [address] [place] [address] Drive, [address] [place] [address] PCP - General Physician Printing Shop Supervisor 06/23/20
--- OUTSIDE RECORDS SUMMARY | 2024-09-09 10:53 | XMS_ITS | Encounter Summary ---
Author Organization [facility], Address [address] [place] [address] Phone Care Team Providers Care Hot Strip Finisher Name Role Phone Clay Guevara Primary Care Provider [phone] Encounter Details Date Type Department Care Team (Late st Contact Info) Description 04/16/2024 Documentation Only [facility], [address] [place] [address] Jean [place]án[place], [place] [address] [place] [address] Social History Tobacco Use Types Packs/Day Years [...] on filedocumented in this encounter Care Teams Hot Strip Finisher Relationship Specialty Start Date End Date Clay Guevara PA [address], [address] [place], [place] [id number] PCP - General Physician Timber Faller 06/23/20 documented as of this encounter
== END 2024-09-09 10:55 | disposition home or self-care (01) ==
PROVIDERS: PCP Physician Assistant; Visit Provider Internal Medicine
DX: E66.01 Morbid (severe) obesity due to excess calories (principal); G47.33 Obstructive sleep apnea (adult) (pediatric)
CPT/HCPCS: 99213

== ENCOUNTER → 2024-09-09 10:09 | Outpatient (BNVA) | payer OTHER, SELFPAY | PROVIDERS: PCP Physician Assistant; Visit Provider Internal Medicine | DX: G47.33 Obstructive sleep apnea (adult) (pediatric) (principal); E66.01 Morbid (severe) obesity due to excess calories; Z68.41 Body mass index [BMI] 40.0-44.9, adult | CPT/HCPCS: 99212 ==

== ENCOUNTER 2024-09-16 14:03 | Outpatient (AMB) | payer OTHER, SELFPAY ==
--- NOTE | 2024-09-16 14:10 | MHC.OFFVIS ---
Vital Signs 09/16/24 14:13 Height 5 ft 9 in Weight 300 lb BMI 44.3 BP 140/80 H Blood Pressure Location Rt brachial Position Sitting Pulse 90 Pulse Source Pulse Oximeter Pulse Oximetry (%) 99 Oxygen Delivery Method Room Air Intake Visit Reasons: T2DM Intake Note: Patient present today to follow up on Type 2 Diabetes Mellitus. Last Diabetic Eye exam: Within the new year Last Podiatry Visit: Van Driver Helper , requesting New Referral. Right foot amputated Random Glucose: 90 mg/dl HgA1C: 6.8% 09/16/2024 Manager Medicaid Required: No Allergies NSAIDS (Non-Steroidal Anti-Inflamma Allergy (Unknown, Verified 09/16/24 14:14) Unknown sulfamethoxazole [From Bactrim] Adverse Reaction (Intermediate, Verified 09/16/24 14:14) Elevated renal functions trimethoprim [From Bactrim] Adverse Reaction (Intermediate, Verified 09/16/24 14:14) Elevated renal functions Medication List - Last Reconciled 09/16/24 by Flaco Styles MD acetaminophen ER 1,300 mg (2 x 650 mg) PO Q8H PRN 90 days alcohol swabs 1 pad topical QID aspirin (Adult Aspirin Regimen) 81 mg PO DAILY 90 days atorvastatin 80 mg PO BEDTIME 30 days blood pressure kit-extra large As directed blood sugar diagnostic (FreeStyle Lite Strips) As directed blood sugar diagnostic (FreeStyle Lite Strips) USE TO TEST FINGER STICK BLOOD SUGAR 4 (FOUR) TIMES DAILY blood-glucose sensor (Dexcom G7 Sensor device) As directed change every 10 days carvedilol 25 mg PO BID cephalexin 500 mg PO QID 7 days chair, wheel (Wheel chair) LIFETIME USE cholecalciferol (vitamin D3) (Vitamin D3) 25 mcg PO DAILY duloxetine 30 mg PO BID famotidine 40 mg PO BEDTIME 30 days ferrous sulfate 325 mg PO DAILY furosemide 40 mg (2 x 20 mg) PO DAILY 30 days gabapentin 800 mg PO TID 30 days hydralazine 100 mg PO BID incontinence pad, liner, disp As directed insulin regular hum U-500 conc (Humulin R U-500 (Conc) Insulin Kwikpen) 40 units (0.08 mL) subcut TID lancets (Easy Touch Lancets) As directed lancets As directed latex gloves (Latex Gloves, Large) As directed lisinopril 1 tab PO DAILY [manual wheel chair As directed with adjustable leg rests ] melatonin 10 mg PO DAILY miscellaneous medical supply 1 ea miscellaneous ONCE 4 weeks miscellaneous medical supply 1 ea miscellaneous .once per week 4 weeks miscellaneous medical supply 1 ea miscellaneous DAILY 90 days nifedipine ER 90 mg PO DAILY 90 days omeprazole 40 mg PO .night time 90 days pen needle, diabetic As directed [Power wheel chair As directed] spironolactone 25 mg PO DAILY 90 days tirzepatide (weight loss) (Zepbound) 2.5 mg (0.5 mL) subcut QWEEK tirzepatide (weight loss) (Zepbound) 5 mg (0.5 mL) subcut QWEEK tramadol 50 mg PO TID PRN 30 days walker (Ultra-Light Rollator misc) As directed [Walker repair As directed] HPI Comments Details: 39 YO M with PMHx T2DM who is seen in F/U for the same. Initially diagnosed with T2DM at the age of 14. Was initially started on treatment with Metformin and Glyburide. Began using Insulin at the age of 20. Current regimen Mounjaro 5 mg Qwkly once a week just uped from 2.5 mg and Humulin U500 40 units with with breakfast, lunch and dinner. Has DEXCOM G6. 14 days of data downloaded from 09/03/23 through 09/16/23 . This reveals an average glucose of 177 and SD of 38.2 . He is at goal 52% of the time, above goal 45% of the time, and below goal 3% of the time. pattern shows drops in blood sugar overnight with increases in point of care occurring after 15:00 and after dinner He has been undergoing evaluation for bariatric surgery, but has not met the weight loss goal so surgery has been put on hold.Waiting on date for surgery No sx with hypoglycemia Family history of T2DM in his Parents. Has eyes checked yearly,last saw optho 6 mos a go , Has retinopathy. Has neuropathy. Had a R BKA in 2017 due to an infected ulcer. Has nephropathy, on Lisinopril 20 mg PO daily. UAC 431.6 08/14/2022. Has HLD, on Atorvastatin 40 mg PO daily. LDL 79 08/14/2022. Has CAD and a prior CVA. Diet: Following with bariatric and is on a meal replacements Weight: Has severe obesity. Currently attending [facility]. Labs: Laboratory Tests 08/14/22 08/14/22 08/14/22 15:50 15:50 15:50 Sodium 142 Potassium 4.2 Creatinine 1.59 H Estimated GFR 49 Hemoglobin A1c % 7.5 LDL Cholesterol Direct 79 25-OH Vitamin D Total 26.6 Microalb/Creat Ratio 08/14/22 16:15 Sodium Potassium Creatinine Estimated GFR Hemoglobin A1c % LDL Cholesterol Direct 25-OH Vitamin D Total Microalb/Creat Ratio 431.6 [facility] Medical History Abnormal stress test History of stroke Morbid obesity NOLAN (obstructive sleep apnea) GERD (gastroesophageal reflux disease) HTN (hypertension) Right below-knee amputee Blind left eye Depression Neuropathy CVA (cerebral vascular accident) Sleep apnea Obesity Vitamin D deficiency HLD (hyperlipidemia) GERD (gastroesophageal reflux disease) Below knee amputation Type 2 diabetes mellitus Surgical History Hx of eye surgery History of amputation of right foot Family History Mother Diabetes Father Prostate cancer Paternal Aunt Diabetes Brother No problems noted. Brother No problems noted. Brother No problems noted. Brother No problems noted. Brother No problems noted. Sister No problems noted. Social History Housing: Apartment Alcohol intake: never Patient Tobacco Use Status: Never used Tobacco e-Cigarette/Vaping Use: Never Used Second Hand Smoke Exposure: No service: No Current occupational status: disabled Cognitive needs: Yes (walk, wheelchair (w/c weighs 360lbs)) Hearing needs: No Vision needs: Yes (glasses) Physical Exam Vital Signs: Last Vital Signs Pulse 90 09/16/24 14:13 BP 140/80 H 09/16/24 14:13 Pulse Ox 99 09/16/24 14:13 Oxygen Delivery Method Room Air 09/16/24 14:13 BMI result Body Mass Index 44.3 Absence of Cushingoid features. Absence of acromegalic features. Neck exam reveals nl size thyroid about 15 gms. No thyroid nodules palpable. No carotid bruits present. Lungs CTA. Heart S1 S2, Reg R/R. No M/R/ G. Skin exam reveals absence of vitiligo or acanthosis nigricans. Abdominal exam reveals Soft NT/ND with NA BS. No organomegaly present. Neck Other: . Extrem Other: Visual exam of foot performed. R BKA LLE 3 + edema No ulcerations or open lesions. No onchomycosis, no callouses.Pulses 2 + distally Sensation intact to monofilament exam. Vibratory sensation sensed is decreased with 128 Hz tuning fork Results AMB Hemoglobin A1c AMB Hemoglobin A1c 6.8 % Last Edit by YUNI Vu on 09/16/24 14:43 Results Reviewed Results Reviewed: Laboratory Last Values Glucose (Clinic) 90 mg/dL (60-115) 09/16/24 14:15 Assessment & Plan Assessment & Plan (1) Type 2 diabetes mellitus with unspecified complications: Code(s): E11.8 - Type 2 diabetes mellitus with unspecified complications Category: Medical Plan: This is a 39-year-old black male with a history of type 2 diabetes being treated with U-500 insulin and Mounjaro with fair worsening improved glycemic control with known microvascular and macrovascular complications including retinopathy, neuropathy, nephropathy, CAD and CVA. Plan is to i continue the increased dose of Mounjaro to 5 mg Q weekly. Will attempt to switch U-500 insulin to Tresiba 70 units with Humalog U 200 20 units before supper. Could consider starting an SGLT 2 inhibitor but only with very close follow-up with Nephrology for adjustment of other medication Medications: New insulin degludec (Tresiba FlexTouch U-200 insulin) 70 units (0.35 mL) subcut BEDTIME 9 mL 5RF insulin lispro (Humalog KwikPen U-200 Insulin) 20 units (0.1 mL) subcut .ac dinner 6 mL 5RF Discontinued insulin regular hum U-500 conc (Humulin R U-500 (Conc) Insulin Kwikpen) Discontinued Reason: Doctor's Order 40 units (0.08 mL) subcut TID 6 mL 11RF E11.59 - Type 2 diabetes mellitus with other circulatory complications, Z79.4 - manager long term care (current) use of insulin Coding Level of Care Code Est Pt Level 4 (95374) Complex EM visit Add On G2211 Diagnoses Type 2 diabetes mellitus with unspecified complications E11.8
[2024-09-16 14:13] VITALS: BP 140/80; PULSE 90; O2SAT 99; BMI 44.3
[2024-09-16 14:20] LABS: Glucose, Whole Blood 90 mg/dL (60-115)
== END 2024-09-16 14:42 | disposition home or self-care (01) ==
PROVIDERS: PCP Physician Assistant; Visit Provider Internal Medicine Endocrinology, Diabetes & Metabolism
DX: E11.8 Type 2 diabetes mellitus with unspecified complications (principal)
CPT/HCPCS: 99214; G2211

== ENCOUNTER → 2024-09-16 14:03 | Outpatient (BNVA) | payer OTHER, SELFPAY | PROVIDERS: PCP Physician Assistant; Visit Provider Internal Medicine Endocrinology, Diabetes & Metabolism | DX: E11.8 Type 2 diabetes mellitus with unspecified complications (principal) | CPT/HCPCS: 82947; 83036; 99212 ==

== ENCOUNTER 2024-09-17 13:19 | Outpatient (AMB) | payer OTHER, SELFPAY ==
[2024-09-17 13:21] VITALS: BP 150/100; PULSE 88; O2SAT 99
--- NOTE | 2024-09-17 13:21 | MHC.PC.OV ---
Vital Signs 09/17/24 13:21 Height 5 ft 9 in BMI Reason not done Patient refused/unable BP 150/100 H Blood Pressure Location Lt brachial Position Sitting Pulse 88 Pulse Source Pulse Oximeter Pulse Oximetry (%) 99 Oxygen Delivery Method Room Air Intake Visit Reasons: Annual pe [employer] Field Supervisor Required: No Accompanied by: Self / Same As Patient Allergies NSAIDS (Non-Steroidal Anti-Inflamma Allergy (Unknown, Verified 09/17/24 13:33) Unknown sulfamethoxazole [From Bactrim] Adverse Reaction (Intermediate, Verified 09/17/24 13:33) Elevated renal functions trimethoprim [From Bactrim] Adverse Reaction (Intermediate, Verified 09/17/24 13:33) Elevated renal functions Medication List - Last Reconciled 09/17/24 by Clay Guevara PA-C acetaminophen ER 1,300 mg (2 x 650 mg) PO Q8H PRN 90 days alcohol swabs 1 pad topical QID aspirin (Adult Aspirin Regimen) 81 mg PO DAILY 90 days atorvastatin 80 mg PO BEDTIME 30 days blood pressure kit-extra large As directed blood sugar diagnostic (FreeStyle Lite Strips) As directed blood sugar diagnostic (FreeStyle Lite Strips) USE TO TEST FINGER STICK BLOOD SUGAR 4 (FOUR) TIMES DAILY blood-glucose sensor (DexHard Candy Cases G7 Sensor device) As directed change every 10 days carvedilol 25 mg PO BID cephalexin 500 mg PO QID 7 days chair, wheel (Wheel chair) LIFETIME USE cholecalciferol (vitamin D3) (Vitamin D3) 25 mcg PO DAILY duloxetine 30 mg PO BID famotidine 40 mg PO BEDTIME 30 days ferrous sulfate 325 mg PO DAILY furosemide 40 mg (2 x 20 mg) PO DAILY 30 days gabapentin 800 mg PO TID 30 days hydralazine 100 mg PO BID incontinence pad, liner, disp As directed insulin degludec (Tresiba FlexTouch U-200 insulin) 70 units (0.35 mL) subcut BEDTIME insulin lispro (Humalog KwikPen U-200 Insulin) 20 units (0.1 mL) subcut .ac dinner lancets (Easy Touch Lancets) As directed lancets As directed latex gloves (Latex Gloves, Large) As directed lisinopril 1 tab PO DAILY [manual wheel chair As directed with adjustable leg rests ] melatonin 10 mg PO DAILY miscellaneous medical supply 1 ea miscellaneous ONCE 4 weeks miscellaneous medical supply 1 ea miscellaneous .once per week 4 weeks miscellaneous medical supply 1 ea miscellaneous DAILY 90 days nifedipine ER 90 mg PO DAILY 90 days omeprazole 40 mg PO .night time 90 days pen needle, diabetic As directed [Power wheel chair As directed] spironolactone 25 mg PO DAILY 90 days tirzepatide (weight loss) (Zepbound) 5 mg (0.5 mL) subcut QWEEK tramadol 50 mg PO TID PRN 30 days walker (Ultra-Light Rollator misc) As directed [Walker repair As directed] Tobacco use date assessed: 09/17/24 Dental Screening Dental Screen Date: 09/17/24 Did you have a dental visit in the last 12 months?: Yes Did you have a dental problem in the last 6 months where you did not have access to dental care?: No Was dental information given to patient?: Patient has dentist HPI Annual pe HPI Details Patient a 39-year-old male here today for a routine annual physical ? Patient has a past medical history significant for DMII, HTN, HLD, Obesity, CVA, CKD , Amputee ( Right foot), CHF. .. CHRONIC MEDICAL CONDITION--> Obesity:? He is currently enrolled in the weight management program here at [place] and has gotten cardiac evaluation and clearance for surgery.? ? Has been able to lose weight with dietary modifications. Does have physical therapy coming to his home which he feels his exercise for him. He has also been on a GLP 1 that has been helpful on reducing his weight. ? .. ? DMII: He was followed by Associate Loan Officer here in [place].? Has recently transition to [facility] from [facility]. He does report some dietary indiscretion as of lately. ?Had a DM nonhealing foot ulcer in 2017 and needed an amputation.? Patient reports he is still awaiting a right lower extremity prosthesis so he can be come more active.? He does report gaining weight due to not being physically active. .. Below-knee amputation right side: Has phantom limb pain thus uses tramadol and gabapentin which is fairly effective. Has a prosthetic and is due for a new prosthesis. .. GERD:? Currently taking omeprazole in the morning and famotidine at night. .. Obstructive sleep apnea:? He now has a CPAP machine which he uses a nightly basis with good effect.? He follows a deck cadet. ? .. ? HTN:? Pressures have been better controlled with the addition of carvedilol 25 mg b.i.d..? Patient denies any chest discomfort, headaches, palpitations. ? .. ? CKD stage 3 - Followed by cloth stock sorter? whom is managing blood pressure meds. He has been set up for US of his kidney in Aug 2020. Most recent microalbumin very elevated.? Vaccines: Up-to-date with COVID vaccine, flu vaccine, pneumonia vaccine [facility] Medical History Abnormal stress test History of stroke Morbid obesity NOLAN (obstructive sleep apnea) GERD (gastroesophageal reflux disease) HTN (hypertension) Right below-knee amputee Blind left eye Depression Neuropathy CVA (cerebral vascular accident) Sleep apnea Obesity Vitamin D deficiency HLD (hyperlipidemia) GERD (gastroesophageal reflux disease) Below knee amputation Type 2 diabetes mellitus Surgical History Hx of eye surgery History of amputation of right foot Family History Mother Diabetes Father Prostate cancer Paternal Aunt Diabetes Brother No problems noted. Brother No problems noted. Brother No problems noted. Brother No problems noted. Brother No problems noted. Sister No problems noted. Social History Housing: Apartment Alcohol intake: never Patient Tobacco Use Status: Never used Tobacco e-Cigarette/Vaping Use: Never Used Second Hand Smoke Exposure: No service: No Current occupational status: disabled Cognitive needs: Yes (walk, wheelchair (w/c weighs 360lbs)) Hearing needs: No Vision needs: Yes (glasses) Questionnaire PHQ-9 Over the last 2 weeks, how often have you been bothered by any of the following problems? 1. Little interest or pleasure in doing things: not at all 2. Feeling down, depressed, or hopeless: not at all 3. Trouble falling or staying asleep, or sleeping too much: more than half the days 4. Feeling tired or having little energy: more than half the days 5. Poor appetite or overeating: more than half the days 6. Feeling bad about yourself - or that you are a failure or have let yourself or your family down: not at all 7. Trouble concentrating on things, such as reading the newspaper or watching television: not at all 8. Moving or speaking so slowly that other people could have noticed. Or the opposite - being so fidgety or restless that you have been moving around a lot more than usual: not at all 9. Thoughts that you would be better off or of hurting yourself in some way: not at all Total score: 6 Depression Screening Interpretation: Positive Depression Screening Follow-up: Existing condition Depression Screening Done: Yes 93974 - PHQ-9 Billing: Yes Source: Developed by Drs. Flaco Tovar, Muna Baumann, Satnam Pendleton and colleagues, with an educational carmelo from [email or web address]. Thrive Questionnaire Date Thrive assessed: 09/17/24 I am a: Patient What is your living situation today?: I have a steady place to live Within the past 12 months, did the food you bought not last and you didn't have the money to get more?: Sometimes True Within the past 12 months, did you worry whether your food would run out before you got money to buy more?: Sometimes True Do you have trouble paying for medicines?: No Do you have trouble getting transportation to medical appointments?: No Do you have trouble paying your heating and electricity bill?: Yes Do you have trouble taking care of your child, family member or friend?: No Do you have trouble with day-to-day activities such as bathing, preparing meals, shopping, managing finances, etc.?: Yes Are you currently unemployed and looking for a job?: No Are you interested in more education?: Yes Please select the resources that you would like help with: None Currently or been in a relationship where the following occur: No concerns reported THRIVE Score: 3 AUDIT C Alcohol Use Questionnaire (AUDIT-C) 1. How often do you have a drink containing alcohol?: Never 3. How often do you have six or more drinks on one occasion?: Never Total Score: 0 KAMALA-7 AMB Questionnaire KAMALA-7 Date KAMALA - 7 assessed: 09/17/24 Feeling nervous, anxious, or on edge: 0 = Not at all Not being able to stop or control worryin = Not at all Worrying too much about different things: 0 = Not at all Trouble relaxin = Not at all Being so restless that it is hard to sit still: 0 = Not at all Becoming easily annoyed or irritable: 0 = Not at all Feeling afraid as if something awful might happen: 0 = Not at all Total KAMALA-7 score (0-4 normal; 5-9 mild; 10-14 moderate; 15-21 severe): 0 Source: Developed by Drs. Flaco Tovar, Muna Baumann, Satnam Pendleton and colleagues, with an educational carmelo from [email or web address]. KAMALA-7 Assessment Billing KAMALA-7 Assessment Tool: KAMALA-7 Assessment 86957 Review of Systems Const Denies body aches, Denies chills, Denies excessive sweating, Denies fatigue, Denies fever(s) and Denies headache(s) Eyes Denies blurry vision ENT Denies dysphagia, Denies vertigo, Denies dizziness, Denies headache(s), Denies hearing loss and Denies tinnitus Card Denies chest pain, Denies chest pain with activity, Denies syncope, Denies irregular heart rhythm and Denies dyspnea Resp Denies chest congestion, Denies cough, Denies hemoptysis, Denies dyspnea and Denies wheezing GI Denies abdominal pain, Denies melena, Denies hematochezia, Denies coffee ground emesis, Denies dysphagia, Denies diarrhea, Denies nausea and Denies vomiting Denies difficulty urinating, Denies dysuria, Denies urinary frequency, Denies urinary hesitancy and Denies urinary urgency Musc Denies arthralgias, Denies limited range of motion, Denies muscle cramps and Denies muscle weakness Skin/Breast Denies rash and Denies skin ulcer Neuro Denies Abnormal speech present, Denies confusion, Denies vertigo, Denies dizziness, Denies syncope, Denies headache(s), Denies memory loss and Denies seizure-like activity Psych Denies anxiety, Denies confusion, Denies depression, Denies memory loss, Denies panic attacks and Denies paranoia Endo Denies excessive sweating, Denies fatigue, Denies flushing, Denies polydipsia and Denies polyuria Aller/Immun Denies wheezing Physical exam (Primary Care) Vital Signs: Last Vital Signs Pulse 88 09/17/24 13:21 BP 150/100 H 09/17/24 13:21 Pulse Ox 99 09/17/24 13:21 Oxygen Delivery Method Room Air 09/17/24 13:21 Tobacco/Smoking Status: Tobacco use Status Tobacco use date assessed 09/17/24 09/17/24 13:28 Patient Tobacco Use Status Never used Tobacco 09/17/24 13:28 e-Cigarette/Vaping Use Never Used 09/17/24 13:28 PHQ-9: PHQ-9 Score PHQ-9: Total score 6 09/17/24 13:28 Depression Screening Interpretation: Positive Depression Screening Follow-up: Existing condition Thrive Assessment: Date of Thrive Assessment Date Thrive assessed 09/17/24 09/17/24 13:28 Currently or been in a relationship where the following occur: No concerns reported Const General: cooperative, comfortable, no acute distress, alert and awake; No confusion Orientation/consciousness: oriented to person, oriented to place, patient oriented x3 and No confusion HENMT Head: Yes normocephalic Ears: external ears normal and TM's normal bilaterally Face and sinus: No sinus tenderness Mouth: Normal oral and palatal mucosa present and tongue normal Teeth and gingiva: dentition normal and gingiva normal Throat: Yes posterior oropharynx normal, Yes tonsils normal and Yes uvula midline Eyes Conjunctivae: conjunctivae normal Sclerae: sclerae normal Pupils: Equal, round and reactive pupils present EOM: EOMs intact bilaterally Direct Ophthalmoscopy: No no photophobia Neck Neck: Yes no lymphadenopathy, No tender and Yes no JVD Thyroid: Thyroid normal Carotids: no bruits Chest Chest palpation & inspection: no tenderness Resp Effort & Inspection: normal respiratory effort, no audible wheezes, not labored and no stridor Auscultation: no crackles, no rales, no rhonchi and no wheezes Cardio Jugular venous distension: no JVD Rate: regular rate, not bradycardic and not tachycardic Rhythm: regular rhythm Bruits: no carotid bruits Peripheral pulses: Peripheral pulses 2+ throughout GI Inspection: Yes normal to inspection, No abdominal wall ecchymosis and No visible herniation Palpation (GI): Soft to palpation, nontender, no guarding, not rigid and No hepatosplenomegaly present Auscultation: normoactive bowel sounds General: Yes no CVA tenderness Back/Spine/Pelvis Back: no CVA tenderness and No back tenderness Cervical Spine: cervical ROM normal Thoracic/Lumbar Spine: thoracic and lumbar spine normal to inspection, straight leg raise negative bilaterally, No thoraco-lumbar ROM limited and No lumbar spinal tenderness Skin Lesions: no lesions Rashes: no rashes Wounds: no wounds Neuro General: oriented to person, oriented to place, patient oriented x3, CN's II-XI intact bilaterally and No confusion Cranial nerves: Yes Equal, round and reactive pupils present and Yes Normal accommodation reflex present Cognition (Neuro): normal cognition Speech: No Abnormal speech present Gait exam (Neuro): Normal gait present Motor exam (neuro): 5/5 motor strength present throughout Extrem Right upper extremity: full ROM; no cyanosis Left upper extremity: full ROM; no cyanosis Right lower extremity: no edema Left lower extremity: no edema Psych Appearance: grossly normal Mental Status: mental status grossly normal Affect: normal affect Attitude: cooperative Thought process: Normal thought process present Coding Level of Care Code Est Pt Prev Care 40-64y(31246) Diagnoses Annual physical exam Z00.00 Stage 3 chronic kidney disease, unspecified whether stage 3a or 3b CKD N18.30 Chronic kidney disease stage 3 subtype: unspecified whether 3a or 3b Cerebrovascular accident (CVA) due to embolism of cerebral artery I63.40 CVA mechanism: embolism Precerebral and cerebral artery: unspecified cerebral artery Type 2 diabetes mellitus with unspecified complications E11.8 Essential hypertension I10 Hypertension type: essential hypertension Hyperlipidemia, unspecified hyperlipidemia type E78.5 Hyperlipidemia type: unspecified Amputated right leg S88.911A PAD (peripheral artery disease) I73.9 Phantom pain G54.6 Additional Codes PHQ-9 - 04184 - PHQ-9 Billing: Yes ([id number]) KAMALA-7 Assessment Billing - KAMALA-7 Assessment Tool: KAMALA-7 Assessment 04995 ([id number]) Assessment & Plan Assessment & Plan (1) Annual physical exam: Code(s): Z00.00 - Encounter for general adult medical examination without abnormal findings Category: Medical Plan: As per HPI (2) CKD (chronic kidney disease) stage 3, GFR 30-59 ml/min: Code(s): N18.30 - Chronic kidney disease, stage 3 unspecified Category: Medical Qualifiers: Chronic kidney disease stage 3 subtype: unspecified whether 3a or 3b Qualified Code(s): N18.30 - Chronic kidney disease, stage 3 unspecified Plan: Patient continues to follow Nephrology. Today's blood pressure elevated. He reports he just took his antihypertensive medication. On high doses of antihypertensive medication. He does not regularly check his blood pressure at home and will try to supply him (3) CVA (cerebral vascular accident): Code(s): I63.9 - Cerebral infarction, unspecified Category: Medical Qualifiers: CVA mechanism: embolism Precerebral and cerebral artery: unspecified cerebral artery Qualified Code(s): I63.40 - Cerebral infarction due to embolism of unspecified cerebral artery Plan: PATIENT HAD A CVA YEARS AGO AND HAS I SIDE ISSUES AND RIGHT-SIDED NEUROVASCULAR DEFICIT. Continues on aspirin therapy indefinitely. (4) Type 2 diabetes mellitus with unspecified complications: Code(s): E11.8 - Type 2 diabetes mellitus with unspecified complications Category: Medical Plan: Patient's type 2 diabetes has been well managed recently. Most recent A1c is 6.8. Continues on an insulin regime. He was started on zepbound by his bariatric surgeon has lost weight. He anticipates getting surgery though still undergoing fasting (5) HTN (hypertension): Code(s): I10 - Essential (primary) hypertension Category: Medical Qualifiers: Hypertension type: essential hypertension Qualified Code(s): I10 - Essential (primary) hypertension Plan: Patient's blood pressure very elevated today in office. He is asymptomatic. He reports he recently just took his medication. Already taking high doses of blood pressure medication at this point. He continues to follow Nephrology. Will supply patient with a home blood pressure monitor script. Goal blood pressures to be below 140/90 (6) HLD (hyperlipidemia): Code(s): E78.5 - Hyperlipidemia, unspecified Category: Medical Qualifiers: Hyperlipidemia type: unspecified Qualified Code(s): E78.5 - Hyperlipidemia, unspecified Plan: Most recent lipid panel showing good control of his total cholesterol and LDL. Will continue his current dose of statin therapy with goal LDL to be optimally below 100 (7) Amputated right leg: Code(s): S88.911A - Complete traumatic amputation of right lower leg, level unspecified, initial encounter Category: Medical Plan: Patient has a below knee right amputation. He is dependent on his electric wheelchair. He does able to stand and pivot while at home. He is asking for a new bariatric walker to help him with transfers. (8) PAD (peripheral artery disease): Code(s): I73.9 - Peripheral vascular disease, unspecified Category: Medical Plan: Continues to follow vascular surgeon. Again does have a below knee right amputation. He is awaiting to get a prosthesis. He continues to have chronic edema in his lower extremities though has been much better since getting better control of his diabetes and blood pressure. Does use a compression sock over his left lower extremity (9) Phantom pain: Code(s): G54.6 - Phantom limb syndrome with pain Category: Medical Plan: Continues to use gabapentin and tramadol for his phantom limb pain Orders: Orders Vitamin D 25-OH Total Today E55.9 - Vitamin D deficiency, unspecified Comprehensive [place]. Panel Fast Today I10 - Essential (primary) hypertension Complete Blood Count no Diff Today I10 - Essential (primary) hypertension Lipid Panel Today E78.5 - Hyperlipidemia, unspecified Medications: New [BARIATRIC WALKER] As directed 1 ea 0RF E66.01 - Morbid (severe) obesity due to excess calories, S88.911A - Complete traumatic amputation of right lower leg, level unspecified, initial encounter blood pressure monitor As directed 1 ea 0RF I10 - Essential (primary) hypertension Patient Instructions: Goal: Blood pressure to be below 140/90 A1c to remain below 7.0, LDL to be below 100 Barriers: Adherence to physical activity and healthy eating habits, below knee amputation on right side
--- OUTSIDE RECORDS SUMMARY | 2024-09-17 14:38 | XMS_ITS | Clinical Summary ---
Author Organization [facility], Address [address] [place] [address] Phone Care Team Providers Care Director Perioperative Name Role Phone Clay Guevara Primary Care Provider [phone] Allergies Active Allergy Reactions Criticality Noted Date [...] PM EDT) Hemoglobin A1C 7.5(H) (4.0-5.6) % [facility] Comment: MONITORING: In known diabetic patients, hemoglobin A1c targets should be discussed with health care provider. DIAGNOSTIC USE: ??The [place] Diabetes Association (ADA) and the World Health [...] Supplement 1 Testing performed or reported by [facility], a Service of [facility], [address] [place] [id number] Marco Delgado MD, Customer Support Associate [facility]# [id number] Blood (Blood, Venous) 10/27/2021 3:46 PM EDT 10/27/2021 4:03 PM EDT us Connie URIBE LAB BLOOD ORDERABLES Final Res ult [facility] from Last 3 Months or Most Recently Relevant to Health Maintenance Insurance [facility] Care Teams Director Perioperative Relationship Specialty Start Date End Date Clay Guevara PA [address] [place] [address] Drive, [address] [place] [address] PCP - General Physician Chalker Soles 06/23/20
--- OUTSIDE RECORDS SUMMARY | 2024-09-17 14:38 | XMS_ITS | Encounter Summary ---
Author Organization [facility], Address [address] [place] [address] Phone Care Team Providers Care Visiting Professor Name Role Phone Clay Guevara Primary Care Provider [phone] Encounter Details Date Type Department Care Team (Late st Contact Info) Description 04/28/2021 Documentation Only [facility], [address] [place] [address] Connie Stafford PA Social History Tobacco Use [...] on filedocumented in this encounter Care Teams Visiting Professor Relationship Specialty Start Date End Date Clay Guevara PA [address], [address] [place], [place] [id number] PCP - General Physician Distance Education Faculty Liaison 06/23/20 documented as of this encounter
--- OUTSIDE RECORDS SUMMARY | 2024-09-17 14:38 | XMS_ITS | Encounter Summary ---
Author Organization [facility], Address [address] [place] [address] Phone Care Team Providers Care Plant Accountant Name Role Phone Clay Guevara Primary Care Provider [phone] Reason for Visit * Reason Comments Med Refill Encounter Details Date Type Department Care Team (Late st Contact Info) Description 12/15/2023 Refill [facility], [address] [place] [phone] Lucio Hancock MD [address] [place] [phone] Social History Tobacco Use Types Packs/Day Years [...] on filedocumented in this encounter Care Teams Plant Accountant Relationship Specialty Start Date End Date Clay Guevara PA [address], [address] [place], [place] [phone] PCP - General Physician Explosive Ordnance Disposal Specialist 06/23/20 documented as of this encounter
--- OUTSIDE RECORDS SUMMARY | 2024-09-17 14:38 | XMS_ITS | Encounter Summary ---
Author Organization [facility], Address [address] [place] [address] Phone Care Team Providers Care Lumber Sorter Name Role Phone Clay Guevara Primary Care Provider [phone] Encounter Details Date Type Department Care Team (Late st Contact Info) Description 04/16/2024 Documentation Only [facility], [address] [place] [address] Jean [place], [place] [address] [place] [address] Social History Tobacco Use Types [...] filedocumented in this encounter Care Teams Lumber Sorter Relationship Specialty Start Date End Date Clay Guevara PA [address], [address] [place], [place] [phone] PCP - General Physician Fuselage Framer 06/23/20 documented as of this encounter
--- OUTSIDE RECORDS SUMMARY | 2024-09-17 14:38 | XMS_ITS | Encounter Summary ---
Author Organization [facility], Address [address] [place] [address] Phone Care Team Providers Care Delinquency Counselor Name Role Phone Clay Guevara Primary Care Provider [phone] Reason for Visit * Reason Onset Date Comments alf visit 08/14/2019 CKDIII/HTN Encounter Details Date Type Department Care Team (Late st Contact Info) Description 08/14/2019 Documentation Only [facility] [address] [place] [phone] Connie Stafford PA alf visit (CKDIII/HTN) Social History Tobacco Use Types [...] on filedocumented in this encounter Care Teams Delinquency Counselor Relationship Specialty Start Date End Date Clay Guevara PA [address], [address] [place] [id number] PCP - General Physician Affirmative Action Specialist 06/23/20 documented as of this encounter
--- OUTSIDE RECORDS SUMMARY | 2024-09-17 14:38 | XMS_ITS | Encounter Summary ---
Author Organization [facility], Address [address] [place] [address] Phone Care Team Providers Care Mutual Fund Accountant Name Role Phone Clay Guevara Primary Care Provider [phone] Reason for Visit * Reason Comments Med Refill Encounter Details Date Type Department Care Team (Late st Contact Info) Description 11/19/2023 Refill [facility], [address] [place] [phone] Lucio Hancock MD [address] [place] [phone] Social History Tobacco Use Types Packs/Day Years [...] on filedocumented in this encounter Care Teams Mutual Fund Accountant Relationship Specialty Start Date End Date Clay Guevara PA [address], [address] [place], [place] [phone] PCP - General Physician Printing Engineer 06/23/20 documented as of this encounter
== END 2024-09-17 13:59 | disposition home or self-care (01) ==
PROVIDERS: PCP Physician Assistant; Visit Provider Physician Assistant
DX: Z00.00 Encounter for general adult medical examination without abnormal findings (principal); I12.9 Hypertensive chronic kidney disease with stage 1 through stage 4 chronic kidney disease, or unspecified chronic kidney disease; N18.30 Chronic kidney disease, stage 3 unspecified; I63.40 Cerebral infarction due to embolism of unspecified cerebral artery; E11.8 Type 2 diabetes mellitus with unspecified complications; S88.911A Complete traumatic amputation of right lower leg, level unspecified, initial encounter; I73.9 Peripheral vascular disease, unspecified; G54.6 Phantom limb syndrome with pain; E78.5 Hyperlipidemia, unspecified

== ENCOUNTER → 2024-09-17 13:19 | Outpatient (BNVA) | payer OTHER, SELFPAY | PROVIDERS: PCP Physician Assistant; Visit Provider Physician Assistant | DX: Z00.00 Encounter for general adult medical examination without abnormal findings (principal); I12.9 Hypertensive chronic kidney disease with stage 1 through stage 4 chronic kidney disease, or unspecified chronic kidney disease; E11.22 Type 2 diabetes mellitus with diabetic chronic kidney disease; N18.30 Chronic kidney disease, stage 3 unspecified; I63.40 Cerebral infarction due to embolism of unspecified cerebral artery; E78.5 Hyperlipidemia, unspecified; I73.9 Peripheral vascular disease, unspecified; G54.6 Phantom limb syndrome with pain; S88.911D Complete traumatic amputation of right lower leg, level unspecified, subsequent encounter | CPT/HCPCS: 96127; 99396 ==

== ENCOUNTER 2024-09-29 12:06 | Outpatient (AMB) | payer OTHER, SELFPAY ==
--- NOTE | 2024-09-29 12:00 | MHC.WMTHER ---
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: VIDEO Intake Allergies NSAIDS (Non-Steroidal Anti-Inflamma Allergy (Unknown, Verified 09/17/24 13:33) Unknown sulfamethoxazole [From Bactrim] Adverse Reaction (Intermediate, Verified 09/17/24 13:33) Elevated renal functions trimethoprim [From Bactrim] Adverse Reaction (Intermediate, Verified 09/17/24 13:33) Elevated renal functions [facility] Medical History Abnormal stress test History of stroke Morbid obesity NOLAN (obstructive sleep apnea) GERD (gastroesophageal reflux disease) HTN (hypertension) Right below-knee amputee Blind left eye Depression Neuropathy CVA (cerebral vascular accident) Sleep apnea Obesity Vitamin D deficiency HLD (hyperlipidemia) GERD (gastroesophageal reflux disease) Below knee amputation Type 2 diabetes mellitus Surgical History Hx of eye surgery History of amputation of right foot Family History Mother Diabetes Father Prostate cancer Paternal Aunt Diabetes Brother No problems noted. Brother No problems noted. Brother No problems noted. Brother No problems noted. Brother No problems noted. Sister No problems noted. Social History Housing: Apartment Alcohol intake: never Patient Tobacco Use Status: Never used Tobacco e-Cigarette/Vaping Use: Never Used Second Hand Smoke Exposure: No service: No Current occupational status: disabled Cognitive needs: Yes (walk, wheelchair (w/c weighs 360lbs)) Hearing needs: No Vision needs: Yes (glasses) Behavioral Health Assessment Weight Management Therapy Therapy Notes Details PT is a 39-year-old male presenting for a behavioral health (BH) assessment as part of the surgical weight loss program. He has been part of the weight management program (WMP) since 2020 and completed the initial BH assessment at that time, where he was cleared. However, PT discontinued services as he didn?t feel ready for surgery. He has since returned to re-establish care in April 2021 at 331 lbs. PT reports that in August of last year, after reaching his highest weight of 385 lbs, he began efforts to lose weight. He successfully lost 50 lbs before returning to the program, now weighing 297 lbs, which is the lowest he has weighed in the past 10 years.PT seeks to improve his quality of life as his health is declining, and he hopes that weight-loss surgery will provide the best opportunity for significant change. PT denies any history of mental health treatment, past hospitalizations, or behavioral health crises. He also reports no concerns related to suicidality, self-harm, or harm to others. There is no history of substance use, nor any evidence of stress or emotional eating. The results of the BES indicate a low risk for binge eating behavior. Additionally, his PHQ-9 score shows no active symptoms or concerns related to depression. The mental status exam was within normal limits, indicating that his functioning is not impaired. At this time, the patient is cleared from a behavioral health standpoint. Presenting Concerns Referral Source WMP- Provider. PT was seen by the surgeon on 04/2024 to re-establish care. Reason for referral Completion of behavioral health assessment as part of process for weight-loss surgery. Precipitating Event Obesity and worsen medical issues. Living Situation Current Living Situation Rent At risk of losing current housing? No Satisfied with current living situation? Yes Comments PT lives alone Food/Weight/Diet Expectations of change PT is hoping that he will have improved mobility; he had a stroke a couple of years ago and the weight has added to his limited mobility. . Current meal plan: PT is using [employer] site and has a combination of shakes, bars, and 1 meal. Exercise plan: Attending physical therapy 2 times a week and OT 2x a week. Scale: Yes. Sending weekly measures on Mondays. History/Relationship with food PT identifies as a bored eater; food is a joyous occasion . PT connects food to socializing and watching television. PT reports food is very big on his culture, and they made History/Relationship with weight PT reports that he has always been big but was content with his weight at 250#; PT gained a good deal of weight about 6 years ago while in a [facility]p after spending 2 years there. In the last 10 years, his highest is 385 Lbs, and 297 Lbs. (current weight) his lowest weight. He has lost about 80 lbs in the last year. History/Relationship with dieting PT has tried IF, Keto, Atkins, eating on a schedule. Has been at this program since 2020. Binge Eating Do you frequently eat large amounts of food in short periods of time, not feeling physically hungry? No Do you feel out of control when you eat a large amount of food in a short period of time? No Do you eat large amounts of food rapidly and typically alone? No Night Eating Do you wake up at least once during the night to eat? No If you wake up in the night, do you find that it is necessary to eat something in order to fall back asleep? No Do you have little or no appetite in the morning and feel very hungry in the evening, often overeating between dinner and when you go to bed? Yes Social History Family history and relationship PT is single, never and has no children. 3 sisters, 3 brothers, Parents are alive. PT reports good relationships with his family. 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 Mom and siblings. 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 None Education Highest grade completed 12th and some college - studied his gen eds Preferred learning style Auditory, Verbal, Written, Learn by doing and Visual Currently enrolled in educational program? Yes Interested in further educational program? 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 No Meaningful activities Plays piano, shopping, cooking. Financial Situation Describe current financial situation Comfortable and Occasional struggle Financial assistance? Food Dietrich and SSDI Service Service? No Mental Health and Addiction Treatment Current/Past substance abuse? No Comments Alcohol: None. Cigarettes/Tobacco: None. Cannabis/Edibles: None. Current/Past addictive behavior concerns? No Psychiatric history PT denies ever been in mental health Tx, crisis, or inpatient for mental health. There is no history and/or current concern about SI/SA and self-harm or other harm. Medical and Physical Health Summary Additional Medical History not covered in history None noted Sexual History concerns None noted Physical exam in the last year? Yes (Sep 2024) Pain Screening Current pain? Yes (Neuropathy (L) foot, arthritis (R) shoulder ) Pain in the last few months? Yes Medications Is the patient compliant with medications? Yes Does the patient have Powers Guardian in place? Not applicable Does the patient use complimentary health approaches? No Trauma/Abuse History History of trauma? No Current Involvement By None Reported Additional Mandated Report Required None Reported Safety and Protective Factors Indicated by Mental Status Exam No Harm to Others Factors Is this assessment indicated by the Mental Status Exam? No Self-Harm Factors Suicidal thoughts/plans/rehearsal behaviors None Suicide attempts None Self-harm behaviors None Family history of suicidal/self harm None Life threatening eating disorder None Victimized by others/places self in danger None Command hallucinations for self harm None Elopement without ability to self preserve None Other self-harm None Other Risk Factors Is this assessment indicated by the Mental Status Exam? No Questionnaires PHQ-9 Over the last 2 weeks, how often have you been bothered by any of the following problems? 1. Little interest or pleasure in doing things: not at all 2. Feeling down, depressed, or hopeless: not at all 3. Trouble falling or staying asleep, or sleeping too much: not at all 4. Feeling tired or having little energy: not at all 5. Poor appetite or overeating: several days (increased appetite since ozempic was changed but has not overeat.) 6. Feeling bad about yourself - or that you are a failure or have let yourself or your family down: not at all 7. Trouble concentrating on things, such as reading the newspaper or watching television: not at all 8. Moving or speaking so slowly that other people could have noticed. Or the opposite - being so fidgety or restless that you have been moving around a lot more than usual: not at all 9. Thoughts that you would be better off or of hurting yourself in some way: not at all Total score: 1 Depression Screening Interpretation: Negative Depression Screening Done: Yes 05717 - PHQ-9 Billing: Yes Source: Developed by Drs. Flaco Tovar, Muna Baumann, Satnam Pendleton and colleagues, with an educational carmelo from [employer]. Binge Eating Scale Group 1 A. I don't feel self-conscious about my wt. or body size when I'm with others. B. I feel concerned about how I look to others, but it normally does not make me fell disappointed with myself C. I do get self-conscious about my appearance and wt. which makes me feel disappointed in myself. D. I feel very self-conscious about my wt. and frequently I feel intense shame and disgust for myself. I try to avoid social contacts because of my self-consciousness. Response Group 1: B Group 2 A. I don't have any difficulty eating slowly in the proper manner. B. Although I seem to gobble down foods, I don't end up feeling stuffed because of eating to much. C. At times, I tend to eat quickly and then, I feel uncomfortably full afterwards. D. I have the habit of bolting down my food, without really chewing it. When this happens I usually feel uncomfortably stuffed because I've eaten to much. Response Group 2: D Group 3 A. I feel capable to control my eating urges when I want to. B. I feel like I have failed to control my eating more than the average person. C. I feel utterly helpless when it comes to feeling in control of my eating urges. D. Because I feel so helpless about controlling my eating I have become very desperate about trying to get control. Response Group 3: A Group 4 A. I don't have the habit of eating when I'm bored. B. I sometimes eat when I'm bored, but often I'm able to get busy and get my mind off food. C. I have a regular habit of eating when I'm bored, but occasionally, I can use some other activity to get my mind off eating. D. I have a strong habit of eating when I'm bored. Nothing seems to help me breath the habit. Response Group 4: B Group 5 A. I'm usually physically hungry when I eat something. B. Occasionally, I eat something on impulse even though I really am not hungry. C. I have the regular habit of eating foods, that I might not really enjoy, to satisfy a hungry feeling even though physically, I don't need the food. D. Although I'm not physically hungry, I get a hungry feeling in my mouth that only seems to be satisfied when I eat a food, like sandwich, that fills my mouth. Sometimes, when I eat the food to satisfy my mouth hunger, I then spit the food out so I won't gain weight. Response Group 5: B Group 6 A. I don't feel any guilt or self-hate after I overeat. B. After I overeat, occasionally I feel guilt or self-hate. C. Almost all the time I experience strong guilt or self-hate after I overeat. Response Group 6: A Group 7 A. I don't lose total control of my eating when dieting even after periods when I overeat. B. Sometimes when I eat a forbidden food on a diet, I feel like I blew it and eat even more. C. Frequently, I have the habit of saying to myself, I've blown it now, why not go all the way, when I overeat on a diet. When that happens I eat more. D. I have a regular habit of starting a strict diets for myself but I break the diets by going on an eating binge. My life seems to be either a feast or famine. Response Group 7: A Group 8 A. I rarely eat so much food that I feel uncomfortably stuffed afterwards. B. Usually about once a month, I each such a quantity of food, I end up feeling very stuffed. C. I have regular periods during the month when I eat large amounts of food, either at mealtime or at snacks. D. I eat so much food that I regularly feel quite uncomfortable after eating and sometimes a bit nauseous. Response Group 8: C Group 9 A. My level of calorie intake does not go up very high or go down very low on a regular basis. B. Sometimes after I overeat, I will try to reduce my caloric intake to almost nothing to compensate for the excess calories I've eaten. C. I have a regular habit of overeating during the night. It seems that my routine is not to be hungry in the morning but overeat in the evening. D. In my adult years, I have had week-long periods where I practically starve myself. This follows periods when I overeat. It seems I live a life of either feast or famine. Response Group 9: A Group 10 A. I usually am able to stop eating when I want to. I know when enough is enough. B. Every so often, I experience a compulsion to eat which I can't seem to control. C. Frequently, I experience strong urges to eat which I seem unable to control, but at other times I can control my eating urges. D. I feel incapable of controlling urges to eat. I have a fear of not being able to stop eating voluntarily. Response Group 10: A Group 11 A. I don't have any problem stopping eating when I feel full. B. I usually can stop eating when I feel full but occasionally overeat leaving me feeling uncomfortably stuffed. C. I have a problem stopping eating once I start and usually I feel uncomfortably stuffed after I eat a meal. D. Because I have a problem not being able to stop eating when I want, I sometimes have to induce vomiting to relieve my stuffed feeling. Response Group 11: B Group 12 A. I seem to eat just as much when I'm with others, Family social gatherings as when I'm by myself. B. Sometimes, when I'm with other persons, I don't eat as much as I want to eat because I'm self-conscious about my eating. C. Frequently, I eat only a small amount of food when others are present, because I'm very embarrassed about my eating. D. I feel so ashamed about overeating that I pick times to overeat when I know no one will see me. I feel like a closet eater. Response Group 12: A Group 13 A. I eat three meals a day with only an occasional between meal snack. B. I eat 3 meals a day, but I also normally snack between meals. C. When I am snacking heavily, I get in the habit of skipping regular meals. D. There are regular periods when I seem to be continually eating, with no planned meals. Response Group 13: D Group 14 A. I don't think much about trying to control unwanted eating urges. B. At least some of the time, I feel my thoughts are pre-occupied with trying to control my eating urges. C. I feel that frequently I spend much time thinking about how much I ate or about trying not to eat anymore. D. It seems to me that most of my waking hours are pre-occupied by thoughts about eating or not eating. I feel like I'm constantly struggling not to eat. Response Group 14: A Group 15 A. I don't think about food a great deal. B. I have strong craving for food but they last only for brief periods of time. C. I have days when I can't seem to think about anything else but food. D. Most of my days seem to be pre-occupied with thoughts about food. I feel like I live to eat. Response Group 15: A Group 16 A. I usually know whether or not I'm physically hungry. I take the right portion of food to satisfy me. B. Occasionally, I feel uncertain about knowing whether or not I'm physically hungry. A these times it's hard to know how much food I should take to satisfy me. C. Even though I might know how many calories I should eat, I don't have any idea what is a normal amount of food for me. Response Group 16: C Binge Eating Score: 14 Score less than 17 Minimal Risk Score between 18-26 Moderate Risk Score between 27-46 High Risk Assessment & Plan Assessment & Plan (1) Adjustment disorder, unspecified: Code(s): F43.20 - Adjustment disorder, unspecified Qualifiers: Adjustment disorder type: unspecified type Qualified Code(s): F43.20 - Adjustment disorder, unspecified Plan At this time, the patient is cleared from a behavioral health standpoint and will be seen again 2-4 weeks post-operatively for continued support. Telehealth Telehealth Telehealth Platform: [facility] Location of provider rendering services: other Location of patient: address on file Patient Identification confirmed using: Name, : Yes Telehealth method: video Patient verbally consented to treatment: Yes Patient verbally consented to billing insurance company: Yes Patient informed of any privacy concerns related to visit: Yes Minutes spent on Phone/Video with Pt.: 60 Coding Level of Care Code New Pt Tele Psy Diag Eval (14224) Patient Type New Diagnoses Adjustment disorder, unspecified type F43.20 Adjustment disorder type: unspecified type Additional Codes PHQ-9 - 23808 - PHQ-9 Billing: Yes ([id number]) Time Spent (min) 60
--- OUTSIDE RECORDS SUMMARY | 2024-09-29 13:56 | XMS_ITS | Encounter Summary ---
Author Organization [facility], Address [address] [place] [address] Phone Care Team Providers Care Vending Machine Operator Name Role Phone Clay Guevara Primary Care Provider [phone] Reason for Visit * Reason Comments Med Refill Encounter Details Date Type Department Care Team (Late st Contact Info) Description 12/15/2023 Refill [facility], [address] [place] [phone] Lucio Hancock MD [address] [place] [phone] Social History Tobacco Use Types Packs/Day Years [...] on filedocumented in this encounter Care Teams Vending Machine Operator Relationship Specialty Start Date End Date Clay Guevara PA [address], [address] [place], [place] [phone] PCP - General Physician Physical Therapist Clinic Director 06/23/20 documented as of this encounter
--- OUTSIDE RECORDS SUMMARY | 2024-09-29 13:56 | XMS_ITS | Encounter Summary ---
Author Organization [facility], Address [address] [place] [address] Phone Care Team Providers Care Mat Roller Name Role Phone Clay Guevara Primary Care Provider [phone] Encounter Details Date Type Department Care Team (Late st Contact Info) Description 04/16/2024 Documentation Only [facility], [address] [place] [address] Jean [place], [place] [address] [place] [address] Social History Tobacco Use Types [...] on filedocumented in this encounter Care Teams Mat Roller Relationship Specialty Start Date End Date Clay Guevara PA [address], [address] [place], [place] [phone] PCP - General Physician Director Of Informatics 06/23/20 documented as of this encounter
--- OUTSIDE RECORDS SUMMARY | 2024-09-29 13:56 | XMS_ITS | Encounter Summary ---
Author Organization [facility], Address [address] [place] [address] Phone Care Team Providers Care Mounter Automatic Name Role Phone Clay Guevara Primary Care Provider [phone] Reason for Visit * Reason Comments Med Refill Encounter Details Date Type Department Care Team (Late st Contact Info) Description 11/19/2023 Refill [facility], [address] [place] [phone] Lucio Hancock MD [address] [place] [phone] Social History Tobacco Use Types Packs/Day Years [...] on filedocumented in this encounter Care Teams Mounter Automatic Relationship Specialty Start Date End Date Clay Guevara PA [address], [address] [place], [place] [phone] PCP - General Physician Motorcycle Sales Associate 06/23/20 documented as of this encounter
--- OUTSIDE RECORDS SUMMARY | 2024-09-29 13:56 | XMS_ITS | Encounter Summary ---
Author Organization [facility], Address [address] [place] [address] Phone Care Team Providers Care Wallpaper Scraper Name Role Phone Clay Guevara Primary Care Provider [phone] Reason for Visit * Reason Onset Date Comments detention visit 08/14/2019 CKDIII/HTN Encounter Details Date Type Department Care Team (Late st Contact Info) Description 08/14/2019 Documentation Only [facility] [address] [place] [phone] Connie Stafford PA detention visit (CKDIII/HTN) Social History Tobacco Use Types [...] on filedocumented in this encounter Care Teams Wallpaper Scraper Relationship Specialty Start Date End Date Clay Guevara PA [address], [address] [place] [phone] PCP - General Physician Marine Painter 06/23/20 documented as of this encounter
--- OUTSIDE RECORDS SUMMARY | 2024-09-29 13:56 | XMS_ITS | Clinical Summary ---
Author Organization [facility], Address [address] [place] [address] Phone Care Team Providers Care Second Baller Name Role Phone Clay Guevara Primary Care Provider [phone] Allergies Active Allergy Reactions Criticality Noted Date [...] PM EDT) Hemoglobin A1C 7.5(H) (4.0-5.6) % [facility] Comment: MONITORING: In known diabetic patients, hemoglobin A1c targets should be discussed with health care provider. DIAGNOSTIC USE: ??The [place] Diabetes Association (ADA) and the World Health [...] Supplement 1 Testing performed or reported by [facility], a Service of [facility], [address] [place] [id number] Marco Delgado MD, Wall Mirror Department Supervisor [facility]# [id number] Blood (Blood, Venous) 10/27/2021 3:46 PM EDT 10/27/2021 4:03 PM EDT us Connie [facility] BLOOD ORDERABLES Final Res ult [facility] from Last 3 Months or Most Recently Relevant to Health Maintenance Insurance [facility] Care Teams Second Baller Relationship Specialty Start Date End Date Clay Guevara PA [address] [place] [address] Drive, [address] [place] [address] PCP - General Physician Manager Animation 06/23/20
--- OUTSIDE RECORDS SUMMARY | 2024-09-29 13:56 | XMS_ITS | Encounter Summary ---
Author Organization [facility], Address [address] [place] [address] Phone Care Team Providers Care Hydroelectric Plant Structural Engineer Name Role Phone Clay Guevara Primary Care Provider [phone] Encounter Details Date Type Department Care Team (Late st Contact Info) Description 04/28/2021 Documentation Only [facility], [address] [place] [address] Connie Stafford PA Social History Tobacco Use [...] on filedocumented in this encounter Care Teams Hydroelectric Plant Structural Engineer Relationship Specialty Start Date End Date Clay Guevara PA [address], [address] [place], [place] [id number] PCP - General Physician Scrap Metal Processing Worker 06/23/20 documented as of this encounter
== END 2024-09-29 13:41 | disposition home or self-care (01) ==
LOC: HO.HBST 12:06
PROVIDERS: PCP Physician Assistant; Visit Provider Counselor Mental Health
DX: F43.20 Adjustment disorder, unspecified (principal)
CPT/HCPCS: 90791

== ENCOUNTER 2024-10-16 09:23 | Day surgery (SDC) | payer OTHER, SELFPAY ==
--- NOTE | 2024-04-02 08:26 | HO.ANESPROP2 ---
HPI - Anesthesia Eval Consult details Narrative: 38yo M for Upper Endoscopy BMI : 52 Neg cardiac w/u for preop bariatric surgery 2020 (no longer in weight management program) Anesthesia Pre-Procedure Meds Is the patient on any of the following meds?: GLP1/DPP4 PMFSH Active Problems Active Problems: All Active Problems Constipation (Acute) Lymphedema (Acute) PAD (peripheral artery disease) (Acute) Varicose veins of left lower extremity with inflammation (Acute) Bilateral carotid bruits (Acute) Impingement of right shoulder (Acute) Lower extremity edema (Acute) Degenerative arthritis of right shoulder region (Acute) Right shoulder pain (Acute) Tinea (Acute) Morbid obesity (Acute) Vitamin B1 deficiency (Acute) NOLAN (obstructive sleep apnea) (Acute) CKD (chronic kidney disease) stage 3, GFR 30-59 ml/min (Acute) Annual physical exam (Acute) Essential hypertension (Acute) Type 2 diabetes mellitus with unspecified complications (Acute) Preoperative cardiovascular examination (Acute) GERD (gastroesophageal reflux disease) (Acute) HTN (hypertension) (Acute) Morbidly obese (Acute) Amputated right leg (Acute) Phantom pain (Acute) Neuropathy (Acute) CVA (cerebral vascular accident) (Acute) Sleep apnea (Acute) Obesity (Acute) Vitamin D deficiency (Acute) HLD (hyperlipidemia) (Acute) Past Medical History Medical History Abnormal stress test History of stroke Morbid obesity NOLAN (obstructive sleep apnea) GERD (gastroesophageal reflux disease) HTN (hypertension) Right below-knee amputee Blind left eye Depression Neuropathy CVA (cerebral vascular accident) Sleep apnea Obesity Vitamin D deficiency HLD (hyperlipidemia) GERD (gastroesophageal reflux disease) Below knee amputation Type 2 diabetes mellitus Family History Family History Mother Diabetes Father Prostate cancer Paternal Aunt Diabetes Brother No problems noted. Brother No problems noted. Brother No problems noted. Brother No problems noted. Brother No problems noted. Sister No problems noted. Surgical History Surgical History Hx of eye surgery History of amputation of right foot Social History Social History (Updated 03/31/24 @ 13:36 by Connie Montemayor CMA) Housing: Apartment Alcohol intake: never Patient Tobacco Use Status: Never used Tobacco e-Cigarette/Vaping Use: Never Used Second Hand Smoke Exposure: No service: No Current occupational status: disabled Cognitive needs: Yes (walk, wheelchair (w/c weighs 360lbs)) Hearing needs: No Vision needs: Yes (glasses) Meds Allergies Allergy/AdvReac Type Severity Reaction Status Date / Time NSAIDS (Non-Steroidal Allergy Unknown Unknown Unverified 03/31/24 13:29 Anti-Inflamma sulfamethoxazole AdvReac Intermediate Elevated Verified 03/19/24 13:57 [From Bactrim] renal functions trimethoprim [From Bactrim] AdvReac Intermediate Elevated Verified 03/19/24 13:57 renal functions Home Medications ?Medication ?Instructions ?Recorded ?Confirmed ?Last Taken ?Type lancets 28 gauge #100 ea 06/21/20 09/24/23 Unknown History lisinopril 20 mg tablet 1 tab PO DAILY 12/23/20 09/24/23 Unknown History Assessment and Plan Assessment Anesthesia Assessment: Chart Reviewed
[2024-10-14 14:52] VITALS: BMI 44.6
--- NOTE | 2024-10-15 08:39 | HO.ANESPROP2 ---
Documented by User: Doreen Hernández NP 10/15/24 08:43 HPI - Anesthesia Eval Consult details Narrative: 39yo M for Upper Endoscopy Anesthesia Pre-Procedure Meds Is the patient on any of the following meds?: GLP1/DPP4 PMFSH Active Problems Active Problems: All Active Problems Encounter for counseling before starting and about pre-exposure prophylaxis for HIV (Acute) Abnormal barium swallow (Acute) Constipation (Acute) Lymphedema (Acute) PAD (peripheral artery disease) (Acute) Varicose veins of left lower extremity with inflammation (Acute) Bilateral carotid bruits (Acute) Impingement of right shoulder (Acute) Lower extremity edema (Acute) Degenerative arthritis of right shoulder region (Acute) Right shoulder pain (Acute) Tinea (Acute) Morbid obesity (Acute) Vitamin B1 deficiency (Acute) NOLAN (obstructive sleep apnea) (Acute) CKD (chronic kidney disease) stage 3, GFR 30-59 ml/min (Acute) Annual physical exam (Acute) Essential hypertension (Acute) Type 2 diabetes mellitus with unspecified complications (Acute) Preoperative cardiovascular examination (Acute) GERD (gastroesophageal reflux disease) (Acute) HTN (hypertension) (Acute) Morbidly obese (Acute) Amputated right leg (Acute) Phantom pain (Acute) Neuropathy (Acute) CVA (cerebral vascular accident) (Acute) Sleep apnea (Acute) Obesity (Acute) Vitamin D deficiency (Acute) HLD (hyperlipidemia) (Acute) Past Medical History Medical History Abnormal stress test History of stroke Morbid obesity NOLAN (obstructive sleep apnea) GERD (gastroesophageal reflux disease) HTN (hypertension) Right below-knee amputee Blind left eye Depression Neuropathy CVA (cerebral vascular accident) Sleep apnea Obesity Vitamin D deficiency HLD (hyperlipidemia) GERD (gastroesophageal reflux disease) Below knee amputation Type 2 diabetes mellitus Family History Family History Mother Diabetes Father Prostate cancer Paternal Aunt Diabetes Brother No problems noted. Brother No problems noted. Brother No problems noted. Brother No problems noted. Brother No problems noted. Sister No problems noted. Surgical History Surgical History Hx of eye surgery History of amputation of right foot Social History Social History Housing: Apartment Are you a primary medicare insurance specialist to a significant other at home: No Do you presently have visiting nurse or other home services: No Alcohol intake: never Patient Tobacco Use Status: Never used Tobacco e-Cigarette/Vaping Use: Never Used Second Hand Smoke Exposure: No Use of substances other than those prescribed or required for medical reasons: No Have you been hit, kicked, punched, or otherwise hurt by someone within the past year? If so, by whom?: No Are you DNR?: No Advance Directives: No Advance Directives Information Provided: Yes Recently lost weight without trying: No service: No Current occupational status: disabled Cognitive needs: Yes (walk, wheelchair (w/c weighs 360lbs)) Hearing needs: No Vision needs: Yes (glasses) Meds Allergies Allergy/AdvReac Type Severity Reaction Status Date / Time NSAIDS (Non-Steroidal Allergy Unknown Unknown Verified 09/17/24 13:33 Anti-Inflamma sulfamethoxazole AdvReac Intermediate Elevated Verified 09/17/24 13:33 [From Bactrim] renal functions trimethoprim [From Bactrim] AdvReac Intermediate Elevated Verified 09/17/24 13:33 renal functions Home Medications ?Medication ?Instructions ?Recorded ?Confirmed ?Last Taken ?Type lisinopril 20 mg tablet 1 tab PO DAILY 12/23/20 09/17/24 Unknown History Exam Height,Weight and Vital Signs: Height 5 ft 9 in Weight 136.985 kg Pertinent Lab Results Pertinent Lab Results: Laboratory Tests 06/16/24 12:15 WBC 6.7 Hgb 11.4 L Hct 34.2 L Plt Count 366 Sodium 139 Potassium 3.7 D Chloride 105 Carbon Dioxide 25 BUN 30 H Creatinine 1.65 H Assessment and Plan Assessment Anesthesia Assessment: Chart Reviewed Documented by User: Luann Michel MD 10/16/24 13:25 HPI - Anesthesia Eval Anesthesia Pre-Procedure Meds Is the patient on any of the following meds?: GLP1/DPP4 (Last dose of Tirzepatide 10/05/24) If yes to any meds - educate patient: Pt education - increased risk of aspiration and/or euvolemic DKA PMFSH Active Problems Active Problems: All Active Problems Encounter for counseling before starting and about pre-exposure prophylaxis for HIV (Acute) Abnormal barium swallow (Acute) Constipation (Acute) Lymphedema (Acute) PAD (peripheral artery disease) (Acute) Varicose veins of left lower extremity with inflammation (Acute) Bilateral carotid bruits (Acute) Impingement of right shoulder (Acute) Lower extremity edema (Acute) Degenerative arthritis of right shoulder region (Acute) Right shoulder pain (Acute) Tinea (Acute) Morbid obesity (Acute) Vitamin B1 deficiency (Acute) NOLAN (obstructive sleep apnea) (Acute). Uses CPAP machine CKD (chronic kidney disease) stage 3, GFR 30-59 ml/min (Acute) Annual physical exam (Acute) Essential hypertension (Acute) Type 2 diabetes mellitus with unspecified complications (Acute) Preoperative cardiovascular examination (Acute) GERD (gastroesophageal reflux disease) (Acute) HTN (hypertension) (Acute) Morbidly obese (Acute) Amputated right leg (Acute) Phantom pain (Acute) Neuropathy (Acute) CVA (cerebral vascular accident) (Acute)- 6 years ago. Right sided weakness Sleep apnea (Acute) Obesity (Acute) Vitamin D deficiency (Acute) HLD (hyperlipidemia) (Acute) Past Medical History Medical History Abnormal stress test History of stroke Morbid obesity NOLAN (obstructive sleep apnea) GERD (gastroesophageal reflux disease) HTN (hypertension) Right below-knee amputee Blind left eye Depression Neuropathy CVA (cerebral vascular accident) Sleep apnea Obesity Vitamin D deficiency HLD (hyperlipidemia) GERD (gastroesophageal reflux disease) Below knee amputation Type 2 diabetes mellitus Family History Family History Mother Diabetes Father Prostate cancer Paternal Aunt Diabetes Brother No problems noted. Brother No problems noted. Brother No problems noted. Brother No problems noted. Brother No problems noted. Sister No problems noted. Family history of problems with anesthesia: No Surgical History Surgical History Hx of eye surgery History of amputation of right foot History of Problems with Anesthesia: No Social History Social History Housing: Apartment Are you a primary medicare insurance specialist to a significant other at home: No Do you presently have visiting nurse or other home services: No Alcohol intake: never Patient Tobacco Use Status: Never used Tobacco e-Cigarette/Vaping Use: Never Used Second Hand Smoke Exposure: No Use of substances other than those prescribed or required for medical reasons: No Have you been hit, kicked, punched, or otherwise hurt by someone within the past year? If so, by whom?: No Are you DNR?: No Advance Directives: No Advance Directives Information Provided: Yes Recently lost weight without trying: No service: No Current occupational status: disabled Cognitive needs: Yes (walk, wheelchair (w/c weighs 360lbs)) Hearing needs: No Vision needs: Yes (glasses) Meds Allergies Allergy/AdvReac Type Severity Reaction Status Date / Time NSAIDS (Non-Steroidal Allergy Unknown Unknown Verified 09/17/24 13:33 Anti-Inflamma sulfamethoxazole AdvReac Intermediate Elevated Verified 09/17/24 13:33 [From Bactrim] renal functions trimethoprim [From Bactrim] AdvReac Intermediate Elevated Verified 09/17/24 13:33 renal functions Home Medications ?Medication ?Instructions ?Recorded ?Confirmed ?Last Taken ?Type lisinopril 20 mg tablet 1 tab PO DAILY 12/23/20 09/17/24 Unknown History Exam Height,Weight and Vital Signs: Height 5 ft 9 in Weight 136.985 kg Vital Signs Temp Pulse Resp BP Pulse Ox O2 Del Method 10/16/24 11:13 98.1 F 82 16 148/68 H 99 Room Air Pertinent Lab Results Pertinent Lab Results: Laboratory Tests 06/16/24 12:15 WBC 6.7 Hgb 11.4 L Hct 34.2 L Plt Count 366 Sodium 139 Potassium 3.7 D Chloride 105 Carbon Dioxide 25 BUN 30 H Creatinine 1.65 H Lab Results 10/16/24 Range/Units 11:18 POC Glucose 152 H (60-115) mg/dL Airway Mallampati Class: III TM Dist: >3cm Neck ROM: Full Loose/Missing/Broken Teeth: No Heart: RRR Lungs: CTAB Assessment and Plan Assessment Anesthesia Assessment: Anesthesia Plan Discussed and Chart Reviewed Final Anesthetic Review Family History of Problems with Anesthesia: No History of Problems with Anesthesia: No NPO: Yes ASA Class: III Final Preanesthetic Review: No Changes in Pt Med Stat, Meds/Allgs Chart Reviewed, Consent Obtained/Reviewed and Anes Risks/Benef Reviewed Patient Risk: Intermediate Procedure Risk: Low Assessment/Block/Sedation in SS: Assess/Block/Sedation-SS Anesthetic Plan Anesthetic Plan: GA Disposition: Standard PACU
[2024-10-16] VITALS (7 sets, daily range): BP systolic 138–188; BP diastolic 68–95; PULSE 82–92; RESP 16; TEMP 36.1–36.7; O2SAT 94–99
[2024-10-16 11:22] LABS: Glucose, Whole Blood 152 mg/dL (60-115)
[2024-10-16] MEDS: Lactated Ringers 1,000 ML 100 ML IVCONT (11:23)
--- NOTE | 2024-10-16 11:46 | MHC.SHP ---
Pre-Procedural Eval Section A - 24 Hr Update-Section A only Date of Service: 10/16/24 Section B - Complete if H&P > 30 days Chief Complaint: GERD, varices Details of Present Illness: Abnormal stress test History of stroke Morbid obesity NOLAN (obstructive sleep apnea) GERD (gastroesophageal reflux disease) HTN (hypertension) Right below-knee amputee Blind left eye Depression Neuropathy CVA (cerebral vascular accident) Sleep apnea Obesity Vitamin D deficiency HLD (hyperlipidemia) GERD (gastroesophageal reflux disease) Below knee amputation Type 2 diabetes mellitus Surgical History Hx of eye surgery History of amputation of right foot Present Medications: see Short Stay Collaborative assessment Allergies: Allergies Allergy/AdvReac Type Severity Reaction Status Date / Time NSAIDS (Non-Steroidal Allergy Unknown Unknown Verified 09/17/24 13:33 Anti-Inflamma sulfamethoxazole AdvReac Intermediate Elevated Verified 09/17/24 13:33 [From Bactrim] renal functions trimethoprim [From Bactrim] AdvReac Intermediate Elevated Verified 09/17/24 13:33 renal functions Review of Systems Review of Systems Comment: Ten point ROS negative Exam Exam Comment: Gen appear: No acute distress HEENT: no icterus Chest: No overt resp distress Abd: soft, nontender, nondistended Psych: Stable affect, answering questions appropriately Neuro: A/Ox3 Plan Diagnosis/Plan: Unchanged I have reviewed the history and physical and performed a pertinent physical examination on my patient. No changes have occurred unless specified. Time Spent With Patient Time: Total time managing care of this patient today ____ minutes.
--- NOTE | 2024-10-16 13:05 | P.OP_ITS ---
Operative Note Operative Note Date of Service: 10/16/24 Narrative: Procedure: Esophagogastroduodenoscopy Endoscopist: Sadia Mao MD Indication: R/o varices Anesthesia Provider: hSannon Weber CRNA Anesthesia Type: GEA ?? EGD Procedure:?? The procedure, indications, preparation and potential complications were reviewed with the patient, who indicated understanding and gave written informed consent to proceed. A physical exam was performed. The patient was electively intubated for airway protection the anesthesiologist. The endoscope was introduced through the mouth, and advanced to the second part of duodenum. The mucosa was carefully examined on slow withdrawal of the endoscope. The patient tolerated the procedure well. There were no immediate complications.? ? EGD Findings:? * Esophagus:? Normal mucosa noted in the entire esophagus. The Z line was at 40 cm. No varices were noted. * Stomach:?Erythema and edema noted in the body of the stomach. A few polyps noted in the cardia. Cold forceps polypectomy was performed. Retroflexion was performed the cardia. Random cold forceps gastric biopsies were taken to rule out H Pylori infection. * Duodenum:? Normal mucosa was noted in the whole of the examined duodenum. Two polyps were noted in the 1st portion of the duodenum. Cold forceps polypectomy was performed. Cold forceps biopsies were taken from duodenal bulb and second portion of the duodenum to rule out celiac sprue. ? EGD Impressions:? * Normal esophagus * Gastritis (biopsy) * Gastric polyps (biopsy) * Duodenal polyps (biopsy) ?? Recommendations:?? * Follow biopsy results. Our office will call or send a letter with results within 7-10 days. * No varices were noted today. Will repeat elastography and if continues to show advanced fibrosis, will favor repeating EGD in 2 years. Above has been reviewed with the patient.
== END 2024-10-16 15:16 | disposition home or self-care (01) ==
PROVIDERS: PCP Physician Assistant; Visit Provider Internal Medicine
PROC: 0DJ08ZZ Inspection of Upper Intestinal Tract, Via Natural or Artificial Opening Endoscopic (ICD-10-PCS; CPT 43235; principal; 2024-10-16 12:40)
DX: K21.9 Gastro-esophageal reflux disease without esophagitis (principal); K29.50 Unspecified chronic gastritis without bleeding; K31.7 Polyp of stomach and duodenum; E66.01 Morbid (severe) obesity due to excess calories; Z68.43 Body mass index [BMI] 50.0-59.9, adult; G47.33 Obstructive sleep apnea (adult) (pediatric); I10 Essential (primary) hypertension; E78.5 Hyperlipidemia, unspecified; E55.9 Vitamin D deficiency, unspecified; H54.40 Blindness, one eye, unspecified eye; E11.9 Type 2 diabetes mellitus without complications; Z89.431 Acquired absence of right foot; Z86.73 Personal history of transient ischemic attack (TIA), and cerebral infarction without residual deficits; Z79.899 Other long term (current) drug therapy; Z88.2 Allergy status to sulfonamides; Z88.6 Allergy status to analgesic agent; Z56.0 Unemployment, unspecified
CPT/HCPCS: 43239; 82947; 88305; 88313; 88342; J2003; J2250; J2704; J3010

== ENCOUNTER → 2024-10-16 09:23 | Outpatient (BNV) | payer OTHER, SELFPAY | PROVIDERS: PCP Physician Assistant; Visit Provider Internal Medicine | DX: K31.7 Polyp of stomach and duodenum (principal); K29.70 Gastritis, unspecified, without bleeding | CPT/HCPCS: 43239 ==

== ENCOUNTER → 2024-10-30 11:00 | Outpatient (BNVA) | payer OTHER, SELFPAY | PROVIDERS: PCP Physician Assistant; Visit Provider Physician Assistant Surgical ==

== ENCOUNTER 2024-11-06 14:30 | Outpatient (AMB) | payer OTHER, SELFPAY ==
--- NOTE | 2024-11-06 10:33 | A.OFFVIS_ITS ---
Vital Signs 11/06/24 14:40 Height 5 ft 9 in BMI Reason not done Patient refused/unable BP 128/80 Blood Pressure Location Rt brachial Position Sitting Pulse 83 Pulse Source Pulse Oximeter Pulse Oximetry (%) 98 Oxygen Delivery Method Room Air Intake Visit Reasons: DM/NEEDS ROOM 5 Intake Note: Patient presents today for a follow-up on Type 2 Diabetes Mellitus: Last Diabetic eye exam was on: 05/2024 Last Podiatry exam was on: Patient needs new referral to see a new Conditioner Tumbler Operator. Most recent HgA1c: 6.8%, 09/16/2024 Random Glucose: 131 mg/dL, Today Wireless Technician Required: No Accompanied by: Self / Same As Patient Allergies NSAIDS (Non-Steroidal Anti-Inflamma Allergy (Unknown, Verified 09/17/24 13:33) Unknown sulfamethoxazole [From Bactrim] Adverse Reaction (Intermediate, Verified 09/17/24 13:33) Elevated renal functions trimethoprim [From Bactrim] Adverse Reaction (Intermediate, Verified 09/17/24 13:33) Elevated renal functions HPI Comments Details: 39 YO M with PMHx T2DM who is seen in F/U for the same. He was last seen by Dr. Styles 09/16/2024. Initially diagnosed with T2DM at the age of 14. Was initially started on treatment with Metformin and Glyburide. Began using Insulin at the age of 20. Current regimen Mounjaro 7.5 mg Qwkly once a week Hasn't increased to higher dose yet prescribed by weight loss clinic Tresiba 70 units Humaloh 20 units befor supper Has DEXCOM G6. avg 163 with a GMI of 7.2 no significant lows He has been undergoing evaluation for bariatric surgery, but has not met the weight loss goal so surgery has been put on hold .Waiting on date for surgery No sx with hypoglycemia Family history of T2DM in his Parents. Has eyes checked yearly,last seen May , Has retinopathy. Has neuropathy. Had a R BKA in 2017 due to an infected ulcer. Has nephropathy, on Lisinopril 20 mg PO daily. UAC 431.6 08/14/2022. Has HLD, on Atorvastatin 40 mg PO daily. LDL 79 08/14/2022. Has CAD and a prior CVA. Diet: Following with bariatric and is on a meal replacements Weight: Has severe obesity. Currently attending [facility] Medical History Abnormal stress test History of stroke Morbid obesity NOLAN (obstructive sleep apnea) GERD (gastroesophageal reflux disease) HTN (hypertension) Right below-knee amputee Blind left eye Depression Neuropathy CVA (cerebral vascular accident) Sleep apnea Obesity Vitamin D deficiency HLD (hyperlipidemia) GERD (gastroesophageal reflux disease) Below knee amputation Type 2 diabetes mellitus Surgical History Hx of eye surgery History of amputation of right foot Family History Mother Diabetes Father Prostate cancer Paternal Aunt Diabetes Brother No problems noted. Brother No problems noted. Brother No problems noted. Brother No problems noted. Brother No problems noted. Sister No problems noted. Social History Housing: Apartment Are you a primary rn intensive care unit to a significant other at home: No Do you presently have visiting nurse or other home services: No Alcohol intake: never Patient Tobacco Use Status: Never used Tobacco e-Cigarette/Vaping Use: Never Used Second Hand Smoke Exposure: No service: No Current occupational status: disabled Cognitive needs: Yes (walk, wheelchair (w/c weighs 360lbs)) Hearing needs: No Vision needs: Yes (glasses) Physical Exam Vital Signs: Last Vital Signs Pulse 83 11/06/24 14:40 BP 128/80 11/06/24 14:40 Pulse Ox 98 11/06/24 14:40 Oxygen Delivery Method Room Air 11/06/24 14:40 Const Other: Absence of Cushingoid features. Absence of acromegalic features. Neck exam reveals nl size thyroid about 15 gms. No thyroid nodules palpable. Heart S1 S2, Reg R/R. No M/R G. Skin exam reveals absence of vitiligo or acanthosis nigricans. Results Reviewed Results Reviewed: Laboratory Last Values Glucose (Clinic) 131 mg/dL (60-115) H 11/06/24 14:41 Assessment & Plan Assessment & Plan (1) Type 2 diabetes mellitus with unspecified complications: Code(s): E11.8 - Type 2 diabetes mellitus with unspecified complications Category: Medical Plan: 39-year-old type 2 diabetic who was doing better since coming off U500 insulin. He is followed by bariatric clinic. Surgery has not been scheduled yet. He has a prescription for higher dose of Mounjaro from weight loss clinic. Current GMI on sensors 7.2 %. Could consider SGLT2 inhibitor if needed. He is on a portion control/calorie restricted diet through weight loss clinic, The patient had an opportunity to ask questions regarding treatment plan. The patient expressed understanding and agreement with the above treatment plan. The patient is aware they should contact our office by phone for worsening glucose readings or for any low blood sugars which may warrant a change in diabetes medication. Compliance is encouraged with medications and any followup testing/consults which may have been ordered. Patient Instructions: Take 15 carb carbohydrate grams to treat a low sugar (3-4 glucose tablets, half a glass of juice or 15 carbohydrate grams of soft candy such as gummie snacks). Recheck your sugar in 15 minutes and re-treat again with 15 carbohydrate grams if low or still with symptoms. Do not drive a car or operate machinery if you do not know what your blood sugar is, if it is low or in excess of 300. The patient was counseled to achieve a target A1C of 7% (154 avg). Fasting blood sugars should be 90-130 in the morning and less than 180 two hours after meals. Reviewed the relationship between poor diabetic control and the development of complications. Coding Level of Care Code Est Pt Level 4 (98120) Complex EM visit Add On G2211 Diagnoses Type 2 diabetes mellitus with unspecified complications E11.8 Time Spent (min) 30 Comment Time spent reviewing labs/provider notes, face to face, chart doc
[2024-11-06 14:40] VITALS: BP 128/80; PULSE 83; O2SAT 98
[2024-11-06 14:47] LABS: Glucose, Whole Blood 131 mg/dL (60-115)
--- OUTSIDE RECORDS SUMMARY | 2024-11-06 16:01 | XMS_ITS | Encounter Summary ---
Author Organization [facility], Address [address] [place] [address] Phone Care Team Providers Care Speech Language Assistant Name Role Phone Clay Guevara Primary Care Provider [phone] Reason for Visit * Reason Comments Med Refill Encounter Details Date Type Department Care Team (Late st Contact Info) Description 11/19/2023 Refill [facility], [address] [place] [phone] Lucio Hancock MD [address] [place] [phone] Social History Tobacco Use Types Packs/Day Years [...] on filedocumented in this encounter Care Teams Speech Language Assistant Relationship Specialty Start Date End Date Clay Guevara PA [address], [address] [place], [place] [phone] PCP - General Physician Registered Nurse First Assistant 06/23/20 documented as of this encounter
--- OUTSIDE RECORDS SUMMARY | 2024-11-06 16:01 | XMS_ITS | Clinical Summary ---
Author Organization [facility], Address [address] [place] [address] Phone Care Team Providers Care Learning Analyst Name Role Phone Clay Guevara Primary Care Provider [phone] Allergies Active Allergy Reactions Criticality Noted Date [...] PM EDT) Hemoglobin A1C 7.5(H) (4.0-5.6) % [facility] Comment: MONITORING: In known diabetic patients, hemoglobin A1c targets should be discussed with health care provider. DIAGNOSTIC USE: ??The [place] Diabetes Association (ADA) and the World Health [...] Supplement 1 Testing performed or reported by [facility], a Service of [facility], [address] [place] [address] Marco Delgado MD, Triage Clinician [facility]# [id number] Blood (Blood, Venous) 10/27/2021 3:46 PM EDT 10/27/2021 4:03 PM EDT us Connie URIBE LAB BLOOD ORDERABLES Final Res ult [facility] from Last 3 Months or Most Recently Relevant to Health Maintenance Insurance [facility] Care Teams Learning Analyst Relationship Specialty Start Date End Date Clay Guevara PA [address] [place] [address] Drive, [address] [place] [address] PCP - General Physician Risk Management Director 06/23/20
--- OUTSIDE RECORDS SUMMARY | 2024-11-06 16:01 | XMS_ITS | Encounter Summary ---
Author Organization [facility], Address [address] [place] [address] Phone Care Team Providers Care Hrbp Name Role Phone Clay Guevara Primary Care Provider [phone] Encounter Details Date Type Department Care Team (Late st Contact Info) Description 04/16/2024 Documentation Only [facility], [address] [place] [place] [address] Jean [place], [place] [address] [place] [address] Social History Tobacco Use Types [...] on filedocumented in this encounter Care Teams Hrbp Relationship Specialty Start Date End Date Clay Guevara PA [address], [address] [place], [place] [phone] PCP - General Physician Municipal Maintenance Worker 06/23/20 documented as of this encounter
--- OUTSIDE RECORDS SUMMARY | 2024-11-06 16:01 | XMS_ITS | Encounter Summary ---
Author Organization [facility], Address [address] [place] [address] Phone Care Team Providers Care Network Engineer Name Role Phone Clay Guevara Primary Care Provider [phone] Reason for Visit * Reason Onset Date Comments half-way visit 08/14/2019 CKDIII/HTN Encounter Details Date Type Department Care Team (Late st Contact Info) Description 08/14/2019 Documentation Only [facility] [address] [place] [phone] Connie Stafford PA half-way visit (CKDIII/HTN) Social History Tobacco Use Types [...] on filedocumented in this encounter Care Teams Network Engineer Relationship Specialty Start Date End Date Clay Guevara PA [address], [address] [place] [id number] PCP - General Physician Neurology Tech 06/23/20 documented as of this encounter
--- OUTSIDE RECORDS SUMMARY | 2024-11-06 16:01 | XMS_ITS | Encounter Summary ---
Author Organization [facility], Address [address] [place] [address] Phone Care Team Providers Care Ranch Hand Name Role Phone Clay Guevara Primary Care Provider [phone] Encounter Details Date Type Department Care Team (Late st Contact Info) Description 04/28/2021 Documentation Only [facility], [address] [place] [address] Connie Stafford PA Social History Tobacco Use [...] on filedocumented in this encounter Care Teams Ranch Hand Relationship Specialty Start Date End Date Clay Guevara PA [address], [address] [place], [place] [phone] PCP - General Physician Bus Person Dishwasher 06/23/20 documented as of this encounter
--- OUTSIDE RECORDS SUMMARY | 2024-11-06 16:01 | XMS_ITS | Encounter Summary ---
Author Organization [facility], Address [address] [place] [address] Phone Care Team Providers Care Edger Saw Operator Name Role Phone Clay Guevara Primary Care Provider [phone] Reason for Visit * Reason Comments Med Refill Encounter Details Date Type Department Care Team (Late st Contact Info) Description 12/15/2023 Refill [facility], [address] [place] [phone] Lucio Hancock MD [address] [place] [phone] Social History Tobacco Use Types Packs/Day Years [...] on filedocumented in this encounter Care Teams Edger Saw Operator Relationship Specialty Start Date End Date Clay Guevara PA [address], [address] [place], [place] [id number] PCP - General Physician Medical Diagnostic Radiographer 06/23/20 documented as of this encounter
== END 2024-11-06 15:15 | disposition home or self-care (01) ==
LOC: HO.ENCR 14:30
PROVIDERS: PCP Physician Assistant; Visit Provider Nurse Practitioner Adult Health
DX: E11.8 Type 2 diabetes mellitus with unspecified complications (principal)
CPT/HCPCS: 99214; G2211

== ENCOUNTER → 2024-11-06 14:30 | Outpatient (BNVA) | payer OTHER, SELFPAY | PROVIDERS: PCP Physician Assistant; Visit Provider Nurse Practitioner Adult Health | DX: E11.8 Type 2 diabetes mellitus with unspecified complications (principal) | CPT/HCPCS: 82947; 99212 ==

== ENCOUNTER → 2024-11-13 13:39 | Outpatient (BNVA) | payer OTHER, SELFPAY | PROVIDERS: PCP Physician Assistant; Visit Provider Physician Assistant Surgical ==

== ENCOUNTER 2024-11-20 10:41 | Outpatient (REF) | payer OTHER, SELFPAY ==
--- NOTE | ~2024-11-20 | US_ITS ---
EXAMINATION: US ABDOMEN COMPLETE WITH LIVER ELASTOGRAPHY HISTORY: E66.01 - Morbid (severe) obesity due to excess calories TECHNIQUE: Real-time grayscale ultrasound imaging of the abdomen was performed and images were reviewed. COMPARISON: Comparison is made with the prior examination dated 12/09/2020. FINDINGS: Liver: The right lobe of the liver measures 21.7 cm in size. The left lobe of the liver measures 15.0 cm in size. The liver demonstrates increased echotexture, consistent with steatosis. No focal mass or intrahepatic biliary ductal dilatation is identified. There is normal hepatopedal flow in the portal vein. Ultrasound elastography of the liver was performed with 10 separate measurements of the liver parenchyma with the patient in the supine position. Measurements were obtained approximately 2 cm below Silvia's capsule and perpendicular to the capsule. Images are of satisfactory quality. The median shear wave velocity is 1.76 m/s (previously 2.62 m/s). The interquartile range/median (IQR/median) is 0.08. Gallbladder and biliary tree: There is echogenic bile within the gallbladder. The gallbladder is otherwise unremarkable, without evidence of calculi, wall thickening, or pericholecystic fluid. There is no sonographic Martínez sign. The common bile duct is normal in caliber measuring 3 mm. Kidneys: The right kidney measures 12.0 cm in length. The left kidney measures 13.1 cm in length. The kidneys are unremarkable, without evidence of masses, hydronephrosis, or calculi. Pancreas: The pancreatic head, neck, and body are unremarkable. The pancreatic tail is obscured by bowel gas. Spleen: The spleen is normal in size and contour, measuring 10.7 cm in length. Abdominal aorta and inferior vena cava: The visualized portions of the abdominal aorta and inferior vena cava are normal in caliber. There is no free fluid in the abdomen. US/US abdomen comp w elastography IMPRESSION: Hepatomegaly and hepatic steatosis. The median shear wave velocity in the liver is 1.76 m/s, corresponding to a median liver stiffness of 9.74 kPa. The IQR/median value is 0.08. This is indicative of a quality data set. Findings are indicative of a high elastography value suggestive of compensated advanced chronic liver disease. REFERENCE: Society of Radiologists in Ultrasound Liver Stiffness Thresholds (2020): LIVER STIFFNESS THRESHOLDS: *Shear wave velocity less than 1.3 m/s (Liver Stiffness equal or less than 5 kPa): High probability of being normal. *Shear wave velocity less than 1.7 m/s (Liver Stiffness less than 9 kPa): In the absence of other known clinical signs, rules out compensated advanced chronic liver disease. *Shear wave velocity between 1.7-2.1 m/s (Liver Stiffness 9-13 kPa): Suggestive of compensated advanced chronic liver disease but need further test for confirmation. *Shear wave velocity between 2.1-2.4 m/s (Liver Stiffness 13-17 kPa): Rules in compensated advanced chronic liver disease. *Shear wave velocity greater than 2.4 m/s (Liver Stiffness over 17 kPa): Suggestive of clinically significant portal hypertension. QUALITY OF DATA SET: *IQR/Median value equal or less than 0.15 implies a quality data set. *IQR/Median value over 0.15 implies a poor quality data set. SIGNIFICANT CHANGE FROM PRIOR EXAM: Significant change if liver stiffness measurement is 10% or greater from prior exam. OTHER CONSIDERATIONS: The stage of liver fibrosis may be overestimated in the setting of acute hepatitis, liver inflammation, elevated liver function tests, hepatic vascular congestion, obstructive cholestasis, non-fasting state, and infiltrative diseases such as amyloidosis and lymphoma. In some patients with NAFLD, the liver stiffness thresholds for compensated advanced chronic liver disease may be lower. In causes other than viral hepatitis and NAFLD, liver stiffness thresholds are not well established. Electronically signed by: Flaco Horne MD 11/20/2024 12:18 PM EDT
--- OUTSIDE RECORDS SUMMARY | 2024-11-20 12:57 | XMS_ITS | Encounter Summary ---
Author Organization [facility], Address [address] [place] [address] Phone Care Team Providers Care Grout Machine Operator Name Role Phone Clay Guevara Primary Care Provider [phone] Reason for Visit * Reason Onset Date Comments [facility] visit 08/14/2019 CKDIII/HTN Encounter Details Date Type Department Care Team (Late st Contact Info) Description 08/14/2019 Documentation Only [facility] [address] [place] [phone] Connie Stafford PA [facility] visit (CKDIII/HTN) Social History Tobacco Use Types Packs/Day Years Used Date Smoking Tobacco: Never Assessed Sex and Gender Information Value Date Recorded Sex Assigned at Not on file Legal Sex Male 4:31 PM EST Gender Identity Not on file Sexual Orientation Not on file documented as of this encounter Plan of Treatment Upcoming Encounters Date Type Department Care Team (Late st Contact Info) Description 02/18/2025 10:20 AM EDT Office Visit [facility], [address] [address] Lucio Hancock MD [address] [place] [phone] documented as of this encounter Visit Diagnoses Not on filedocumented in this encounter Care Teams Grout Machine Operator Relationship Specialty Start Date End Date Clay Guevara PA [address] [facility], [address] [place] [address] PCP - General Physician Glass Ribbon Machine Operator Assistant 06/23/20 documented as of this encounter
--- OUTSIDE RECORDS SUMMARY | 2024-11-20 12:57 | XMS_ITS | Clinical Summary ---
Author Organization [facility], Address [address] [place] [address] Phone Care Team Providers Care Central Supply Technician Name Role Phone Clay Guevara Primary Care Provider [phone] Allergies Active Allergy Reactions Criticality Noted Date [...] Mass Index - - Plan of Treatment Upcoming Encounters Date Type Department Care Team (Late st Contact Info) Description 02/18/2025 10:20 AM EDT Office Visit [facility], [address] [place] [address] Lucio Hancock MD [address] [place] [address] Health Maintenance Due Date Last Done Comments Hepatitis B Vaccine (1 of 3 - 19+ 3-dose series) 08/15 Pneumococcal Vaccine: Peds ( 0 to 5 Years) and At-Risk Patients (6 to 49 Years) (1 of 2 - PCV) 2003 Diabetes: Ophthalmology Exam 03/05/2020 Diabetes: Pedal Pulse Checked 03/05/2020 Diabetes: Sensory Foot Exam 03/05/2020 Diabetes: Visual Foot Exam 03/05/2020 Diabetes: Hemoglobin A1C 01/27/2022 10/27/2021 Influenza Vaccine (Season Ended) 2025 Procedures Procedure Name Priority Date/Time Associated Diagnosis Comments HEMOGLOBIN A1C Routine 10/27/2021 3:46 PM EDT Stage 3b chronic kidney disease (HCC) from Last 3 Months or Most Recently Relevant to Health Maintenance Results * (ABNORMAL) Hemoglobin A1c (10/27/2021 3:46 PM EDT) Hemoglobin A1C 7.5(H) (4.0-5.6) % [facility] Comment: MONITORING: In known diabetic patients, hemoglobin A1c targets should be discussed with health care provider. DIAGNOSTIC USE: ??The [place] Diabetes Association (ADA) and the World Health [...] Supplement 1 Testing performed or reported by [facility] Reference [employer], a Service of [facility], [address] [place] [id number] Marco Delgado MD, Supplier Engineer [facility]# [id number] Blood (Blood, Venous) 10/27/2021 3:46 PM EDT 10/27/2021 4:03 PM EDT us Connie [facility] LAB BLOOD ORDERABLES Final Res ult [facility] from Last 3 Months or Most Recently Relevant to Health Maintenance Insurance [employer] Care Teams Central Supply Technician Relationship Specialty Start Date End Date Clay Guevara PA [address], [address] [place] [address] PCP - General Physician Glazier [employer] Furniture 06/23/20
--- OUTSIDE RECORDS SUMMARY | 2024-11-20 12:57 | XMS_ITS | Encounter Summary ---
Author Organization [facility] Address [address] [place] [address] Phone Care Team Providers Care Color Control Supervisor Name Role Phone Clay Guevara Primary Care Provider [phone] Reason for Visit * Reason Comments Med Refill Encounter Details Date Type Department Care Team (Late st Contact Info) Description 11/19/2023 Refill [facility] [address] [place] [address] Lucio Hancock MD [address] [facility] [place] [address] Social History Tobacco Use Types Packs/Day Years [...] Office Visit [facility] [address] [place] [address] Lucio Hancock MD [address] [facility] [place] [address] documented as of this encounter Visit Diagnoses Not on filedocumented in this encounter Care Teams Color Control Supervisor Relationship Specialty Start Date End Date Clay Guevara PA [address] [place] [address], [address] [place] [address] PCP - General Physician Swimming Coach 06/23/20 documented as of this encounter
--- OUTSIDE RECORDS SUMMARY | 2024-11-20 12:57 | XMS_ITS | Encounter Summary ---
Author Organization [facility], Address [address] [place] [address] Phone Care Team Providers Care Global Manager Name Role Phone Clay Guevara Primary Care Provider [phone] Encounter Details Date Type Department Care Team (Late st Contact Info) Description 04/28/2021 Documentation Only [facility] [address] [place] [phone] Connie Stafford PA Social History Tobacco Use [...] Visit [facility] [address] [place] [address] Lucio Hancock MD [address] [place] [address] [place] [phone] documented as of this encounter Visit Diagnoses Not on filedocumented in this encounter Care Teams Global Manager Relationship Specialty Start Date End Date Clay Guevara PA [address] [place] [address], [address] [place] [address] PCP - General Physician Computer Numerical Control Operator 06/23/20 documented as of this encounter
--- OUTSIDE RECORDS SUMMARY | 2024-11-20 12:57 | XMS_ITS | Encounter Summary ---
Author Organization [facility] Address [address] [place] [address] Phone Care Team Providers Care Cub Reporter Name Role Phone Clay Guevara Primary Care Provider [phone] Encounter Details Date Type Department Care Team (Late st Contact Info) Description 04/16/2024 Documentation Only [facility] [address] [place] [address] Susanne Durán [place] [address] [place] [address] Social History Tobacco Use Types [...] Visit [facility] [address] [place] [address] Lucio Hancock MD [address] [place] [address] documented as of this encounter Visit Diagnoses Not on filedocumented in this encounter Care Teams Cub Reporter Relationship Specialty Start Date End Date Clay Guevara PA [address] [place] [address], [address] [place] [address] PCP - General Physician Machine Hamper Maker 06/23/20 documented as of this encounter
--- OUTSIDE RECORDS SUMMARY | 2024-11-20 12:57 | XMS_ITS | Encounter Summary ---
Author Organization [facility] Address [address] [place] [address] Phone Care Team Providers Care Review Engineer Name Role Phone Clay Guevara Primary Care Provider [phone] Reason for Visit * Reason Comments Med Refill Encounter Details Date Type Department Care Team (Late st Contact Info) Description 12/15/2023 Refill [facility] [address] [place] [address] Lucio Hancock MD [address] [address] [place] [address] Social History Tobacco Use Types [...] Office Visit [facility] [address] [place] [address] Lucio Hancock MD [address] [place] [address] documented as of this encounter Visit Diagnoses Not on filedocumented in this encounter Care Teams Review Engineer Relationship Specialty Start Date End Date Clay Guevara PA [address] [place] [address], [address] [place] [address] PCP - General Physician Chemical Economist 06/23/20 documented as of this encounter
== END 2024-11-20 10:42 | disposition home or self-care (01) ==
LOC: HO.US 10:41
PROVIDERS: PCP Physician Assistant; Visit Provider Internal Medicine
DX: E66.01 Morbid (severe) obesity due to excess calories (principal)
CPT/HCPCS: 76700; 76981

== ENCOUNTER → 2024-11-20 10:44 | Outpatient (BNV) | payer OTHER, SELFPAY | PROVIDERS: PCP Physician Assistant; Visit Provider Radiology Diagnostic Radiology | DX: R16.0 Hepatomegaly, not elsewhere classified (principal); K76.0 Fatty (change of) liver, not elsewhere classified | CPT/HCPCS: 76700; 76981 ==

== ENCOUNTER → 2024-11-25 13:52 | Outpatient (BNVA) | payer OTHER, SELFPAY | PROVIDERS: PCP Physician Assistant; Visit Provider Physician Assistant Surgical ==

== ENCOUNTER → 2024-12-09 13:04 | Outpatient (BNVA) | payer OTHER, SELFPAY | PROVIDERS: PCP Physician Assistant; Visit Provider Physician Assistant Surgical ==

== ENCOUNTER → 2024-12-25 13:23 | Outpatient (BNVA) | payer OTHER, SELFPAY | PROVIDERS: PCP Physician Assistant; Visit Provider Physician Assistant Surgical ==

== ENCOUNTER → 2025-01-01 13:21 | Outpatient (BNVA) | payer OTHER, SELFPAY | PROVIDERS: PCP Physician Assistant; Visit Provider Physician Assistant Surgical ==

== ENCOUNTER 2025-01-26 08:10 | Outpatient (AMB) | payer OTHER, SELFPAY ==
--- OUTSIDE RECORDS SUMMARY | 2025-01-26 08:16 | XMS_ITS | Encounter Summary ---
Author Organization [facility] Address [address] [place] [address] Phone Care Team Providers Care Movers Name Role Phone Clay Guevara Primary Care Provider [phone] Reason for Visit * Reason Comments Med Refill Encounter Details Date Type Department Care Team (Late st Contact Info) Description 11/19/2023 Refill [facility] [address] [place] [address] Lucio Hancock MD [address] [facility] [place] [address] Social History Tobacco Use Types [...] Care Team (Late st Contact Info) Description 04/01/2025 4:00 PM EDT Office Visit [facility] [address] [place] [address] Lucio Hancock MD [address] [facility] [place] [address] documented as of this encounter Visit Diagnoses Not on filedocumented in this encounter Care Teams Movers Relationship Specialty Start Date End Date Clay Guevara PA [address] [place] [address], [address] [place] [address] PCP - General Physician Dentistry Professor 06/23/20 documented as of this encounter
--- NOTE | 2025-01-26 09:14 | A.OFFVIS_ITS ---
"VS Expanded 01/26/25 09:27 Height 5 ft 9 in Weight 315 lb BMI 46.5 Intake Visit Reasons: TV Pre Op LSG 02/10/25 Allergies NSAIDS (Non-Steroidal Anti-Inflamma Allergy (Unknown, Verified 01/26/25 09:14) Unknown sulfamethoxazole (From Bactrim) Adverse Reaction (Intermediate, Verified 01/26/25 09:14) Elevated renal functions trimethoprim (From Bactrim) Adverse Reaction (Intermediate, Verified 01/26/25 09:14) Elevated renal functions Medication List - Last Reconciled 01/26/25 by Neri Hays MD acetaminophen ER 1,300 mg (2 x 650 mg) PO Q8H PRN 90 days alcohol swabs 1 pad topical QID aspirin (Adult Aspirin Regimen) 81 mg PO DAILY 90 days atorvastatin 80 mg PO BEDTIME 30 days [BARIATRIC WALKER As directed] blood pressure kit-extra large As directed blood pressure monitor As directed blood sugar diagnostic (FreeStyle Lite Strips) As directed blood sugar diagnostic (FreeStyle Lite Strips) USE TO TEST FINGER STICK BLOOD SUGAR 4 (FOUR) TIMES DAILY blood-glucose sensor ([employer] G7 Sensor device) As directed change every 10 days carvedilol 25 mg PO BID chair, wheel (Wheel chair) LIFETIME USE cholecalciferol (vitamin D3) (Vitamin D3) 25 mcg PO DAILY duloxetine 30 mg PO BID famotidine 20 mg PO DAILY ferrous sulfate 325 mg PO DAILY Held on 09/24/23. Instructions: Doctor's Order furosemide 40 mg (2 x 20 mg) PO DAILY 30 days gabapentin 800 mg PO TID 30 days hydralazine 100 mg PO BID incontinence pad, liner, disp As directed insulin degludec (Tresiba FlexTouch U-200 insulin) 70 units (0.35 mL) subcut BEDTIME insulin lispro (Humalog KwikPen U-200 Insulin) 34 units (0.17 mL) subcut .ac dinner 30 days lancets (Easy Touch Lancets) As directed lancets As directed latex gloves (Latex Gloves, Large) As directed lisinopril 1 tab PO DAILY [manual wheel chair As directed with adjustable leg rests ] melatonin 10 mg PO DAILY miscellaneous medical supply 1 ea miscellaneous ONCE 4 weeks miscellaneous medical supply 1 ea miscellaneous .once per week 4 weeks miscellaneous medical supply 1 ea miscellaneous DAILY 90 days nifedipine ER 90 mg PO DAILY 90 days omeprazole 20 mg PO DAILY 90 days ondansetron 4 mg PO Q12H pantoprazole 40 mg PO DAILY pen needle, diabetic As directed polyethylene glycol 3350 17 grams PO DAILY [Power wheel chair As directed] spironolactone 25 mg PO DAILY 90 days Held on 09/24/23. Instructions: Doctor's Order sucralfate 10 mL PO BID tirzepatide (weight loss) (Zepbound) 15 mg (0.5 mL) subcut QWEEK tramadol 50 mg PO TID PRN 30 days walker (Ultra-Light Rollator misc) As directed [Walker repair As directed] HPI HPI TV Pre Op LSG 02/10/25: Details: Start time: 9.00am, End time: 9.45am ?I spent 40 minutes speaking with the patient on the phone plus an additional 5 minutes reviewing and updating records for a total of 45 minutes HPI Comments Details: Overall weight loss: 40lbs or 11.3% TBWL This is his preop appointment for the upcoming sleeve gastrectomy [facility] Medical History Abnormal stress test History of stroke Morbid obesity NOLAN (obstructive sleep apnea) GERD (gastroesophageal reflux disease) HTN (hypertension) Right below-knee amputee Blind left eye Depression Neuropathy CVA (cerebral vascular accident) Sleep apnea Obesity Vitamin D deficiency HLD (hyperlipidemia) GERD (gastroesophageal reflux disease) Below knee amputation Type 2 diabetes mellitus Surgical History Hx of eye surgery History of amputation of right foot Family History Mother Diabetes Father Prostate cancer Paternal Aunt Diabetes Brother No problems noted. Brother No problems noted. Brother No problems noted. Brother No problems noted. Brother No problems noted. Sister No problems noted. Social History Housing: Apartment Are you a primary medicare specialist to a significant other at home: No Do you presently have visiting nurse or other home services: No Alcohol intake: never Patient Tobacco Use Status: Never used Tobacco e-Cigarette/Vaping Use: Never Used Second Hand Smoke Exposure: No service: No Current occupational status: disabled Cognitive needs: Yes (walk, wheelchair (w/c weighs 360lbs)) Hearing needs: No Vision needs: Yes (glasses) Telehealth Telehealth Telehealth Platform: Telephone Location of provider rendering services: practice address Location of patient: address on file Patient Identification confirmed using: Name, : Yes Telehealth method: voice only Patient verbally consented to treatment: Yes Patient verbally consented to billing insurance company: Yes Patient informed of any privacy concerns related to visit: Yes Minutes spent on Phone/Video with Pt.: 45 Assessment & Plan Assessment & Plan (1) Morbid obesity: Code(s): E66.01 - Morbid (severe) obesity due to excess calories Category: Medical Plan: 1. Plan for lap sleeve gastrectomy including upper GI endoscopy. All tests has been completed and reviewed and the patient is cleared for the surgery. ?If canelo phragmatic or ventral hernias are present at time of surgery, these will be repaired laparoscopically as well. 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 I emphasized the importance of close follow-up, adherence to instructions and good communication. So far he has proven to be an excellent communicator and very compliant with all our directions accomplishing a great weight loss. I believe that he is an excellent candidate and he is ready. 2. Preop prescriptions were provided and explained the purpose of each one. Need to be purchased preop. Start Pantoprazole now as you get it from the pharmacy, 1 pill per day. Sucralfate and Zofran are for after surgery as needed. 3. Bowel prep: please do 7 packets ?of Miralax mixing each one with a an 8oz glass of water, crystal light, gatorade zero, or propel ?on 02/08/25 and the same amount on 02/09/25. The Miralax you begin with one packet at a time in 8oz water or crystal light, gatorade zero, or propel ?as early in the day as you can and you do them back to back until you finish them. Continue the protein shakes during ?the bowel prep. 4. Needs to purchase 1oz medicine cups . 5. Needs to purchase Children's liquid Tylenol for postop pain control. 6. He needs to STOP: the Tirzepatide injections and the Aspirin on 02/03/25 or sooner, the Furosemide and Gabapentin on 02/07/25 (last dose). Avoid aspirin, motrin, Advil, Aleve, Meloxicam, Excedrin, Ibuprofen, Naproxyn. Tylenol is OK. 7. He needs to purchase the Celebrate multivitamins from the hospital's gift shop, chewable or pills whatever you prefer. 8. Will do basic preop blood work-up any day between Sunday02/02/25 and 02/05/25 fasting for 12 hours and is scheduled to see the Anesthesiologist prior to the day of surgery. 9. Check your blood sugar daily and let me know immediately of the blood sugar is below 100. 10. Importance of adherence to postop folllow-up and recommendations was underscored and she understands that. 11. Stop food and bars as of TODAY 01/26/25 and continue with 3 PREMIER premade protein shakes (8oz per shake and NOT the whole bottle) at 11am-1pm, 2pm-4pm and 5pm-7pm and TWO more premade PREMIER protein shakes (WHOLE BOTTLE) at 8pm-10pm and 11pm-1am. 12. No soups, broths or V8 13. The patient's?medical?history has been reviewed and they are considered low risk for post op DVT and therefore DVT prophylaxis is not considered necessary. Travel after surgery was reviewed. The patient has not disclosed any travel pl ans during the first 30 days after surgery and they have been advised that within the first 30 days after surgery any bus, plane, train or car travel over 2 hours in duration is contraindicated due to the possibility of developing blood clots from immobility. Any travel, needs to include periods of ambulation of 10 minutes in duration every 2 hours.? Patient was instructed to discuss any plans for travel during this period with their bariatric surgeon.? 14. Use your CPAP daily and bring it to the hospital with your mask 15. As of tomorrow, please check your blood pressure daily in the morning. If your blood pressure is: Below 120/70: take only the Spironolactone 121/71 to 130/80: take ONE Spironolactone, ONE Carvedilol and ONE Hydralazine 131/81 to 140/90: take ONE Spironolactone, ONE Carvedilol, ONE Nifedipine, HALF Furosemide, and ONE Hydralazine Over 141/91: take ONE Spironolactone, ONE Carvedilol, ONE Nifedipine, HALF Furosemide, ONE Lisinopril and ONE Hydralazine 16. Please take at the day of surgery the following medications: Lisinopril, Carvedilol, Nifedipine and Hydralazine IF the blood pressure that day is high enough to justify it based on the parameters at the previous bullet point. 17. Absolutely no smoking or vaping, or marijuana until the surgery and for at least the first 4 weeks. Only nicotine patches are allowed. 18. Send me weight measurements TOMORROW 01/27/25 from your home scale 19. Avoid any steroids by mouth for any reason. Let me know if someone prescribes them to you 20. These instructions supersede anything else you read in the handbook, anything you watched in videos or classes or you were told by any other provider. If there is any conflict, you follow the above instructions and nothing else. Orders: Orders Prothrombin Time INR Today E66.01 - Morbid (severe) obesity due to excess calories, I10 - Essential (primary) hypertension, K21.9 - Gastro-esophageal reflux disease without esophagitis Type and Screen Today E66.01 - Morbid (severe) obesity due to excess calories, I10 - Essential (primary) hypertension, K21.9 - Gastro-esophageal reflux disease without esophagitis Hemoglobin A1c Today E66.01 - Morbid (severe) obesity due to excess calories, I10 - Essential (primary) hypertension, K21.9 - Gastro-esophageal reflux disease without esophagitis Insulin Today E66.01 - Morbid (severe) obesity due to excess calories, I10 - Essential (primary) hypertension, K21.9 - Gastro-esophageal reflux disease without esophagitis Comprehensive Met. Panel Today E66.01 - Morbid (severe) obesity due to excess calories, I10 - Essential (primary) hypertension, K21.9 - Gastro-esophageal reflux disease without esophagitis TSH reflex Free T4 Today E66.01 - Morbid (severe) obesity due to excess calories, I10 - Essential (primary) hypertension, K21.9 - Gastro-esophageal reflux disease without esophagitis Partial Thromboplastin Time Today E66.01 - Morbid (severe) obesity due to excess calories, I10 - Essential (primary) hypertension, K21.9 - Gastro- esophageal reflux disease without esophagitis Lipid Panel Today E66.01 - Morbid (severe) obesity due to excess calories, I10 - Essential (primary) hypertension, K21.9 - Gastro-esophageal reflux disease without esophagitis C Reactive Protein Today E66.01 - Morbid (severe) obesity due to excess calories, I10 - Essential (primary) hypertension, K21.9 - Gastro-esophageal reflux disease without esophagitis Complete Blood Count Auto Diff Today E66.01 - Morbid (severe) obesity due to excess calories, I10 - Essential (primary) hypertension, K21.9 - Gastro- esophageal reflux disease without esophagitis Medications: New ondansetron Only take one every 12 hours as needed if you have nausea 4 mg PO Q12H 20 tabs 0RF nausea and vomiting R11.0 - Nausea polyethylene glycol 3350 Mix each measuring cup with 8oz of water, Crystal light, or Gatorade zero, or Propel and do 7 measuring cups on 02/08/25 and another 7 measuring cups on 02/09/25 17 grams PO DAILY 238 grams 0RF Z01.818 - Encounter for other preprocedural examination pantoprazole 40 mg PO DAILY 90 tabs 0RF K21.9 - Gastro-esophageal reflux disease without esophagitis sucralfate 10 mL PO BID 600 mL 2RF K21.9 - Gastro-esophageal reflux disease without esophagitis"
[2025-01-26 09:27] VITALS: BMI 46.5
== END 2025-01-26 09:46 | disposition home or self-care (01) ==
LOC: HO.HBS 08:10
PROVIDERS: PCP Physician Assistant; Visit Provider Surgery
DX: E66.01 Morbid (severe) obesity due to excess calories (principal); Z68.42 Body mass index [BMI] 45.0-49.9, adult
CPT/HCPCS: 99499

== ENCOUNTER → 2025-01-27 13:48 | Outpatient (BNVA) | payer OTHER, SELFPAY | PROVIDERS: PCP Physician Assistant; Visit Provider Physician Assistant Surgical | DX: E66.01 Morbid (severe) obesity due to excess calories (principal); G47.33 Obstructive sleep apnea (adult) (pediatric) | CPT/HCPCS: 99212 ==

== ENCOUNTER 2025-01-27 14:25 | Outpatient (AMB) | payer OTHER, SELFPAY ==
--- NOTE | 2025-01-27 14:34 | MHC.OFFVIS ---
Vital Signs 01/27/25 14:35 Height 5 ft 9 in Weight 315 lb BMI 46.5 BP 120/78 Blood Pressure Location Lt brachial Position Sitting Pulse 97 Pulse Source Pulse Oximeter Pulse Oximetry (%) 97 Oxygen Delivery Method Room Air Intake Visit Reasons: nolan Intake Note: pt is here for follow up and states he is using his cpap every night, but download isn't available, he is having weight loss surgery on at [employer] Required: No Allergies NSAIDS (Non-Steroidal Anti-Inflamma Allergy (Unknown, Verified 01/27/25 16:28) Unknown sulfamethoxazole (From Bactrim) Adverse Reaction (Intermediate, Verified 01/27/25 16:28) Elevated renal functions trimethoprim (From Bactrim) Adverse Reaction (Intermediate, Verified 01/27/25 16:28) Elevated renal functions Medication List - Last Reconciled 01/27/25 by Malu Anderson MD acetaminophen ER 1,300 mg (2 x 650 mg) PO Q8H PRN 90 days alcohol swabs 1 pad topical QID aspirin (Adult Aspirin Regimen) 81 mg PO DAILY 90 days atorvastatin 80 mg PO BEDTIME 30 days [BARIATRIC WALKER As directed] blood pressure kit-extra large As directed blood pressure monitor As directed blood sugar diagnostic (FreeStyle Lite Strips) As directed blood sugar diagnostic (FreeStyle Lite Strips) USE TO TEST FINGER STICK BLOOD SUGAR 4 (FOUR) TIMES DAILY blood-glucose sensor ([employer] G7 Sensor device) As directed change every 10 days carvedilol 25 mg PO BID chair, wheel (Wheel chair) LIFETIME USE cholecalciferol (vitamin D3) (Vitamin D3) 25 mcg PO DAILY duloxetine 30 mg PO BID famotidine 20 mg PO DAILY ferrous sulfate 325 mg PO DAILY Held on 09/24/23. Instructions: Doctor's Order furosemide 40 mg (2 x 20 mg) PO DAILY 30 days gabapentin 800 mg PO TID 30 days hydralazine 100 mg PO BID incontinence pad, liner, disp As directed insulin degludec (Tresiba FlexTouch U-200 insulin) 70 units (0.35 mL) subcut BEDTIME insulin lispro (Humalog KwikPen U-200 Insulin) 34 units (0.17 mL) subcut .ac dinner 30 days lancets (Easy Touch Lancets) As directed lancets As directed latex gloves (Latex Gloves, Large) As directed lisinopril 1 tab PO DAILY [manual wheel chair As directed with adjustable leg rests ] melatonin 10 mg PO DAILY miscellaneous medical supply 1 ea miscellaneous ONCE 4 weeks miscellaneous medical supply 1 ea miscellaneous .once per week 4 weeks miscellaneous medical supply 1 ea miscellaneous DAILY 90 days nifedipine ER 90 mg PO DAILY 90 days omeprazole 20 mg PO DAILY 90 days ondansetron 4 mg PO Q12H pantoprazole 40 mg PO DAILY pen needle, diabetic As directed polyethylene glycol 3350 17 grams PO DAILY [Power wheel chair As directed] [Replacement prosthesis for right lower extremity As directed] spironolactone 25 mg PO DAILY 90 days Held on 09/24/23. Instructions: Doctor's Order sucralfate 10 mL PO BID tirzepatide (weight loss) (Zepbound) 15 mg (0.5 mL) subcut QWEEK tramadol 50 mg PO TID PRN 30 days walker (Ultra-Light Rollator misc) As directed [Walker repair As directed] Do you need a note to return to daycare/school/sports/work: No HPI HPI nolan: Details: This 39 years old gentleman who is morbidly obese, has impaired locomotion and has had right below-knee amputation, He is a case of severe obstructive sleep apnea, which is being treated with use of CPAP. Patient has been very compliant in using the CPAP, and sleeps well. He has old [employer] model and it does not transmit the data to print compliance report. He denies any difficulty. With the mask or the machine For weight reduction he is trying to do his best in controlling diet . He did join the weight management program and now is awaiting to undergo bariatric surgery in February. In the meantime he is fully compliant with using the CPAP. [facility] Medical History Abnormal stress test History of stroke Morbid obesity NOLAN (obstructive sleep apnea) GERD (gastroesophageal reflux disease) HTN (hypertension) Right below-knee amputee Blind left eye Depression Neuropathy CVA (cerebral vascular accident) Sleep apnea Obesity Vitamin D deficiency HLD (hyperlipidemia) GERD (gastroesophageal reflux disease) Below knee amputation Type 2 diabetes mellitus Surgical History Hx of eye surgery History of amputation of right foot Family History Mother Diabetes Father Prostate cancer Paternal Aunt Diabetes Brother No problems noted. Brother No problems noted. Brother No problems noted. Brother No problems noted. Brother No problems noted. Sister No problems noted. Social History Housing: Apartment Are you a primary child care aide to a significant other at home: No Do you presently have visiting nurse or other home services: No Alcohol intake: never Patient Tobacco Use Status: Never used Tobacco e-Cigarette/Vaping Use: Never Used Second Hand Smoke Exposure: No service: No Current occupational status: disabled Cognitive needs: Yes (walk, wheelchair (w/c weighs 360lbs)) Hearing needs: No Vision needs: Yes (glasses) Review of Systems Const All systems reviewed & are unremarkable except as noted in HPI and below Reports snoring (Much less since he is using CPAP) Eyes Reports no additional complaints ENT Reports no additional complaints Card Denies chest pain, Denies irregular heart rhythm and Denies leg edema Resp Reports no additional complaints, Denies cough, Reports snoring (Much less since he is using CPAP) and Denies wheezing GI Reports heartburn (Being treated for GERD) Reports no additional complaints Musc Reports abnormal gait (Non ambulatory mostly in the powered wheelchair), Reports back pain and Reports muscle weakness Skin/Breast Reports system reviewed and no additional complaints, except as documented Neuro Reports abnormal gait (Non ambulatory mostly in the powered wheelchair) Psych Reports no additional complaints Aller/Immun Denies wheezing Physical Exam Vital Signs: Last Vital Signs BP 120/78 01/27/25 14:35 BMI result Body Mass Index 46.5 He is obviously morbidly obese, with a round face. He is in powered wheelchair, Const General: comfortable, no acute distress, alert and awake Orientation/consciousness: patient oriented x3 HEENT Head: Yes normal to inspection General nose exam: No nasal polyps present and No nasal discharge present Face and sinus: Yes sinuses nontender Mouth: oropharynx abnormals (Very crowded and narrow oropharynx, Mallampati class 4) Throat: Yes posterior oropharynx normal Eyes General: appearance normal, both eyes and all related structures Neck Neck: Yes normal visual inspection, Yes no lymphadenopathy, Yes trachea midline and Yes no JVD Thyroid: Thyroid normal Chest Chest palpation & inspection: normal inspection of the chest, normal palpation of entire chest wall and no tenderness Resp Other: Percussion note is not perceptible, breath sounds are distant because of the thick chest wall. But no wheezes or rhonchi are heard. Cardio Palpation: PMI not normal (Not palpable) Rate: regular rate Rhythm: regular rhythm Heart sounds: no gallops and no murmurs Peripheral pulses: Peripheral pulses 2+ throughout GI Palpation (GI): Soft to palpation, nontender, No hepatosplenomegaly present, no masses and Other GI palpation findings present (Abdomen grossly obese and protuberant) Auscultation: normal bowel sounds Back/Spine/Pelvis Thoracic/Lumbar Spine: thoracic and lumbar spine normal to inspection and thoraco-lumbar ROM limited Skin General skin exam: no rashes or lesions noted Neuro General: patient oriented x3, No gait normal (Non ambulatory) and no focal motor deficits Cranial nerves: Yes CN's II-XII intact bilaterally Extrem Other: Right leg amputee. General: Yes normal to inspection, Yes no clubbing, cyanosis or edema, Yes no calf tenderness and Yes edema (PUFFINESS AROUND THE LEFT ANKLE, WITH QUESTIONABLE STASIS EDEMA.) Psych Appearance: grossly normal and well kempt Speech and movement: Normal speech and movement present Results Reviewed Results Reviewed: Compliance report not available because his model is old and does not transmit compliance data. As per patient's statement he is 100% compliant and uses every night for at least 6-7 hours per night. 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 Code(s): E66.01 - Morbid (severe) obesity due to excess calories Category: Medical Plan: HOPE THAT AFTER BARIATRIC SURGERY HE WOULD LOSE SIGNIFICANT WEIGHT. (2) NOLAN (obstructive sleep apnea): Comment: PATIENT HAS LONG-STANDING HISTORY OF OBSTRUCTIVE SLEEP APNEA, EXPECTED FROM HIS MORBID OBESITY. PATIENT HAS BEEN ON CPAP THERAPY WITH AUTOPAP MODE ( 6-20 CMs ) COMPLIANCE DATA NOT AVAILABLE BUT THE PATIENT CLAIMS THAT HE IS USING IT REGULARLY EVERY NIGHT, AND SLEEPS GOOD. CLINICALLY HE IS DEFINITELY BENEFITTING FROM THE USE OF CPAP . Code(s): G47.33 - Obstructive sleep apnea (adult) (pediatric) Category: Medical Plan: COMMENDED FOR GOOD COMPLIANCE AND ADVISED TO CONTINUE USING THE CPAP REGULARLY EVERY NIGHT Coding Level of Care Code Est Pt Level 3 (52280) Diagnoses Morbidly obese E66.01 NOLAN (obstructive sleep apnea) G47.33
[2025-01-27 14:35] VITALS: BP 120/78; PULSE 97; O2SAT 97; BMI 46.5
== END 2025-01-27 14:48 | disposition home or self-care (01) ==
LOC: HO.HPS 14:26
PROVIDERS: PCP Physician Assistant; Visit Provider Internal Medicine
DX: E66.01 Morbid (severe) obesity due to excess calories (principal); G47.33 Obstructive sleep apnea (adult) (pediatric)
CPT/HCPCS: 99213

== ENCOUNTER 2025-02-03 08:29 | Outpatient (AMB) | payer OTHER, SELFPAY ==
--- OUTSIDE RECORDS SUMMARY | 2025-02-03 08:36 | XMS_ITS | Encounter Summary ---
Author Organization [facility] Address [address] [place] [address] Phone Care Team Providers Care Machine Quilt Stuffer Name Role Phone Clay Guevara Primary Care Provider [phone] Reason for Visit * Reason Comments Med Refill Encounter Details Date Type Department Care Team (Late st Contact Info) Description 11/19/2023 Refill [facility] [address] [place] [address] Lucio Hancock MD [address] [place] [address] Social History Tobacco Use Types [...] Office Visit [facility] [address] [place] [address] Lucio Hancock MD [address] [place] [address] documented as of this encounter Visit Diagnoses Not on filedocumented in this encounter Care Teams Machine Quilt Stuffer Relationship Specialty Start Date End Date Clay Guevara PA [address] [place] [address], [address] [place] [address] PCP - General Physician Blue[employer]inter 06/23/20 documented as of this encounter
--- NOTE | 2025-02-03 08:42 | MHC.PC.OV ---
Vital Signs 02/03/25 08:45 Height 5 ft 9 in BMI Reason not done Patient refused/unable BP 140/86 H Blood Pressure Location Lt brachial Position Sitting Pulse 97 Pulse Source Pulse Oximeter Temp 97.3 F Temp Source Temporal Artery Scan Pulse Oximetry (%) 97 Oxygen Delivery Method Room Air Intake Visit Reasons: Medical notes Fashion Design Professor Required: No Supervisor Train Operations: Not Required per policy Accompanied by: Self / Same As Patient Allergies NSAIDS (Non-Steroidal Anti-Inflamma Allergy (Unknown, Verified 02/03/25 08:58) Unknown sulfamethoxazole (From Bactrim) Adverse Reaction (Intermediate, Verified 02/03/25 08:58) Elevated renal functions trimethoprim (From Bactrim) Adverse Reaction (Intermediate, Verified 02/03/25 08:58) Elevated renal functions Medication List - Last Reconciled 02/03/25 by Clay Guevara PA-C acetaminophen ER 1,300 mg (2 x 650 mg) PO Q8H PRN 90 days alcohol swabs 1 pad topical QID aspirin (Adult Aspirin Regimen) 81 mg PO DAILY 90 days atorvastatin 80 mg PO BEDTIME 30 days [BARIATRIC WALKER As directed] blood pressure kit-extra large As directed blood pressure monitor As directed blood sugar diagnostic (FreeStyle Lite Strips) As directed blood sugar diagnostic (FreeStyle Lite Strips) USE TO TEST FINGER STICK BLOOD SUGAR 4 (FOUR) TIMES DAILY blood-glucose sensor (Ooploo G7 Sensor device) As directed change every 10 days carvedilol 25 mg PO BID chair, wheel (Wheel chair) LIFETIME USE cholecalciferol (vitamin D3) (Vitamin D3) 25 mcg PO DAILY duloxetine 30 mg PO BID famotidine 20 mg PO DAILY ferrous sulfate 325 mg PO DAILY Held on 09/24/23. Instructions: Doctor's Order furosemide 40 mg (2 x 20 mg) PO DAILY 30 days gabapentin 800 mg PO TID 30 days hydralazine 100 mg PO BID incontinence pad, liner, disp As directed insulin degludec (Tresiba FlexTouch U-200 insulin) 70 units (0.35 mL) subcut BEDTIME insulin lispro (Humalog KwikPen U-200 Insulin) 34 units (0.17 mL) subcut .ac dinner 30 days lancets (Easy Touch Lancets) As directed lancets As directed latex gloves (Latex Gloves, Large) As directed lisinopril 1 tab PO DAILY [manual wheel chair As directed with adjustable leg rests ] melatonin 10 mg PO DAILY miscellaneous medical supply 1 ea miscellaneous ONCE 4 weeks miscellaneous medical supply 1 ea miscellaneous .once per week 4 weeks miscellaneous medical supply 1 ea miscellaneous DAILY 90 days nifedipine ER 90 mg PO DAILY 90 days omeprazole 20 mg PO DAILY 90 days ondansetron 4 mg PO Q12H pantoprazole 40 mg PO DAILY pen needle, diabetic As directed polyethylene glycol 3350 17 grams PO DAILY [Power wheel chair As directed] [Replacement prosthesis for right lower extremity As directed] spironolactone 25 mg PO DAILY 90 days Held on 09/24/23. Instructions: Doctor's Order sucralfate 10 mL PO BID tirzepatide (weight loss) (Zepbound) 15 mg (0.5 mL) subcut QWEEK tramadol 50 mg PO TID PRN 30 days walker (Ultra-Light Rollator misc) As directed [Walker repair As directed] Tobacco use date assessed: 02/03/25 Dental Screening Dental Screen Date: 09/17/24 HPI Medical notes HPI Details Patient a 39-year-old male here today for a follow-up visit. ? Patient has a past medical history significant for DMII, HTN, HLD, Obesity, CVA, CKD , Amputee ( Right foot), CHF. Obesity:? Has been diligently following the [place] bariatric program, has been cleared for bariatric surgery that is due for March of 2025. He is nervous about the procedure though nose this surgery may help him significantly with his health. ? .. ? DMII: He was followed by Electronic Warfare Linguist here in [place]. Today's A1c at 6.2.? She continues on Monjauro . He does report some dietary indiscretion as of lately. ?Had a DM nonhealing foot ulcer in 2017 and needed an amputation.? Patient reports he is still awaiting a right lower extremity prosthesis so he can be come more active.? He does report gaining weight due to not being physically active. .. * Below-knee amputation right side: Has phantom limb pain thus uses tramadol and gabapentin which is fairly effective. Jerome is in need for prosthetic repair and management of his right below knee amputation. The patient has had the current prosthetic for approximately five to six years, and it is now breaking down, particularly the liner, which is causing concerns for potential skin issues. The prosthetic is currently in the repair shop, and the patient has been without it for about four weeks, impacting his mobility and ability to perform activities of daily living. The patient has a history of stroke, which has resulted in tightness in the hip, affecting his ability to walk without assistance. He currently uses a walker but expresses a desire to walk independently, as he is only 39 years old. .. GERD:? Currently taking omeprazole in the morning and famotidine at night. .. Obstructive sleep apnea:? He now has a CPAP machine which he uses a nightly basis with good effect.? He follows a transfer station attendant. ? .. ? HTN:? Pressures have been better controlled with the addition of carvedilol 25 mg b.i.d..? Patient denies any chest discomfort, headaches, palpitations. ? .. ? CKD stage 3 - Followed by registered massage therapist? whom is managing blood pressure meds. He has been set up for US of his kidney in Aug 2020. Most recent microalbumin very elevated.? PFSH Medical History Abnormal stress test History of stroke Morbid obesity NOLAN (obstructive sleep apnea) HTN (hypertension) Right below-knee amputee Blind left eye Depression Neuropathy CVA (cerebral vascular accident) Sleep apnea Obesity Vitamin D deficiency HLD (hyperlipidemia) GERD (gastroesophageal reflux disease) Below knee amputation Type 2 diabetes mellitus Surgical History Hx of eye surgery History of amputation of right foot Family History Mother Diabetes Father Prostate cancer Paternal Aunt Diabetes Brother No problems noted. Brother No problems noted. Brother No problems noted. Brother No problems noted. Brother No problems noted. Sister No problems noted. Social History Housing: Apartment Are you a primary direct care staffer to a significant other at home: No Do you presently have visiting nurse or other home services: No Alcohol intake: never Patient Tobacco Use Status: Never used Tobacco e-Cigarette/Vaping Use: Never Used Second Hand Smoke Exposure: No service: No Current occupational status: disabled Cognitive needs: Yes (walk, wheelchair (w/c weighs 360lbs)) Hearing needs: No Vision needs: Yes (glasses) Questionnaire PHQ-9 Over the last 2 weeks, how often have you been bothered by any of the following problems? 1. Little interest or pleasure in doing things: more than half the days 2. Feeling down, depressed, or hopeless: not at all 6. Feeling bad about yourself - or that you are a failure or have let yourself or your family down: not at all 7. Trouble concentrating on things, such as reading the newspaper or watching television: not at all 8. Moving or speaking so slowly that other people could have noticed. Or the opposite - being so fidgety or restless that you have been moving around a lot more than usual: not at all 9. Thoughts that you would be better off or of hurting yourself in some way: not at all Depression Screening Interpretation: Positive Depression Screening Done: Yes Source: Developed by Drs. Flaco Tovar, Muna Baumann, Satnam Pendleton and colleagues, with an educational carmelo from [employer]. Thrive Questionnaire Date Thrive assessed: 09/15/24 I am a: Patient What is your living situation today?: I have a steady place to live Within the past 12 months, did the food you bought not last and you didn't have the money to get more?: Sometimes True Within the past 12 months, did you worry whether your food would run out before you got money to buy more?: Sometimes True Do you have trouble paying for medicines?: No Do you have trouble getting transportation to medical appointments?: No Do you have trouble paying your heating and electricity bill?: Yes Do you have trouble taking care of your child, family member or friend?: No Do you have trouble with day-to-day activities such as bathing, preparing meals, shopping, managing finances, etc.?: Yes Are you currently unemployed and looking for a job?: No Are you interested in more education?: Yes Please select the resources that you would like help with: None Currently or been in a relationship where the following occur: No concerns reported THRIVE Score: 3 KAMALA-7 AMB Questionnaire KAMALA-7 Date KAMALA - 7 assessed: 09/17/24 Source: Developed by Drs. Flaco Tovar, Muna Baumann, Satnam Pendleton and colleagues, with an educational carmelo from [employer]. Review of Systems Const Denies headache(s) Eyes Denies loss of vision ENT Denies vertigo, Denies dizziness, Denies headache(s) and Denies sore throat Card Denies chest pain, Denies leg edema and Denies lightheadedness Resp Denies cough, Denies hemoptysis and Denies wheezing GI Denies abdominal pain, Denies melena, Denies constipation, Denies diarrhea and Denies vomiting Denies dysuria, Denies urinary frequency and Denies urinary urgency Musc Denies arthralgias, Denies joint swelling, Denies numbness and Denies tingling Neuro Denies Abnormal speech present, Denies behavioral changes, Denies vertigo, Denies dizziness, Denies headache(s), Denies loss of vision, Denies memory loss, Denies numbness and Denies tingling Psych Denies anxiety, Denies behavioral changes, Denies depression, Denies memory loss and Denies panic attacks Eugenio/Lymph Denies easy bleeding and Denies easy bruising Aller/Immun Denies wheezing Physical exam (Primary Care) Vital Signs: Last Vital Signs Temp 97.3 F 02/03/25 08:45 Pulse 97 02/03/25 08:45 BP 140/86 H 02/03/25 08:45 Pulse Ox 97 02/03/25 08:45 Oxygen Delivery Method Room Air 02/03/25 08:45 Tobacco/Smoking Status: Tobacco use Status Tobacco use date assessed 02/03/25 02/03/25 08:54 Patient Tobacco Use Status Never used Tobacco 02/03/25 08:43 e-Cigarette/Vaping Use Never Used 02/03/25 08:43 Depression Screening Interpretation: Positive Thrive Assessment: Date of Thrive Assessment Date Thrive assessed 09/15/24 02/03/25 08:43 Currently or been in a relationship where the following occur: No concerns reported Const General: healthy appearing, no acute distress, alert and awake Nutritional Appearance: well nourished Orientation/consciousness: oriented to person, oriented to place and oriented to time HENMT Ears: TM's normal bilaterally General nose exam: Normal nasal mucous membranes and turbinates present Eyes Conjunctivae: conjunctivae normal Sclerae: sclerae normal Pupils: Equal, round and reactive pupils present Neck Neck: Yes no lymphadenopathy and Yes no JVD Thyroid: Thyroid normal Carotids: no bruits Resp Effort & Inspection: normal respiratory effort and not tachypneic Auscultation: no crackles, no rales, no rhonchi and no wheezes Cardio Rate: regular rate Rhythm: regular rhythm Heart sounds: no murmurs and normal S1 and S2 GI Palpation (GI): Soft to palpation, nontender, no hepatomegaly and no splenomegaly Auscultation: normal bowel sounds Skin General skin exam: no rashes or lesions noted and dry skin Neuro General: oriented to person, oriented to place and oriented to time Cranial nerves: Yes Equal, round and reactive pupils present Speech: No Abnormal speech present Gait exam (Neuro): Normal gait present Motor exam (neuro): no tremor noted Extrem Other: RIGHT LOWER EXTREMITY: BELOW-KNEE AMPUTATION NOTED, NO SKIN BREAKDOWN OR ULCERATIONS NOTED AT AMPUTATION STUB. Right upper extremity: full ROM Left upper extremity: full ROM Right lower extremity: full ROM and edema Left lower extremity: full ROM and edema Psych Mental Status: mental status grossly normal Speech and movement: Normal speech and movement present Affect: normal affect Attitude: cooperative Thought process: Normal thought process present Results AMB Hemoglobin A1c AMB Hemoglobin A1c 6.2 % Last Edit by YUNI Cohen on 02/03/25 08:58 Results Reviewed Results Reviewed: Laboratory Last Values Hgb A1c (Clinic) 6.2 % (4.0-6.0) H 02/03/25 08:44 Coding Level of Care Code Est Pt Level 4 (91712) Diagnoses Amputated right leg S88.911A Stage 3 chronic kidney disease, unspecified whether stage 3a or 3b CKD N18.30 Chronic kidney disease stage 3 subtype: unspecified whether 3a or 3b Cerebrovascular accident (CVA) due to embolism of cerebral artery I63.40 CVA mechanism: embolism Precerebral and cerebral artery: unspecified cerebral artery Type 2 diabetes mellitus with unspecified complications E11.8 Essential hypertension I10 Hypertension type: essential hypertension Hyperlipidemia, unspecified hyperlipidemia type E78.5 Hyperlipidemia type: unspecified Assessment & Plan Assessment & Plan (1) Amputated right leg: Code(s): S88.911A - Complete traumatic amputation of right lower leg, level unspecified, initial encounter Category: Medical Plan: Patient has a below knee right amputation. He is dependent on his electric wheelchair. He does able to stand and pivot while at home. He is asking for a new bariatric walker to help him with transfers. The patient requires a replacement prosthesis due to the current one breaking down, particularly the liner, which poses a risk for skin issues. The prosthetic is in the repair shop, and the patient has been without it for four weeks, affecting his mobility. A note will be provided to facilitate the repair and return of the prosthesis to enable the patient to resume normal activities. (2) CKD (chronic kidney disease) stage 3, GFR 30-59 ml/min: Code(s): N18.30 - Chronic kidney disease, stage 3 unspecified Category: Medical Qualifiers: Chronic kidney disease stage 3 subtype: unspecified whether 3a or 3b Qualified Code(s): N18.30 - Chronic kidney disease, stage 3 unspecified Plan: Patient continues to follow Nephrology. Today's blood pressure elevated. He reports he just took his antihypertensive medication. On high doses of antihypertensive medication. He does not regularly check his blood pressure at home and will try to supply him (3) CVA (cerebral vascular accident): Code(s): I63.9 - Cerebral infarction, unspecified Category: Medical Qualifiers: CVA mechanism: embolism Precerebral and cerebral artery: unspecified cerebral artery Qualified Code(s): I63.40 - Cerebral infarction due to embolism of unspecified cerebral artery Plan: PATIENT HAD A CVA YEARS AGO AND HAS I SIDE ISSUES AND RIGHT-SIDED NEUROVASCULAR DEFICIT. Continues on aspirin therapy indefinitely. (4) Type 2 diabetes mellitus with unspecified complications: Code(s): E11.8 - Type 2 diabetes mellitus with unspecified complications Category: Medical Plan: Patient's type 2 diabetes has been well managed recently. Most recent A1c is 6.8. Continues on an insulin regime. He was started on zepbound by his bariatric surgeon has lost weight. He anticipates getting surgery though still undergoing fasting (5) HTN (hypertension): Code(s): I10 - Essential (primary) hypertension Category: Medical Qualifiers: Hypertension type: essential hypertension Qualified Code(s): I10 - Essential (primary) hypertension Plan: Patient's blood pressure very elevated today in office. He is asymptomatic. He reports he recently just took his medication. Already taking high doses of blood pressure medication at this point. He continues to follow Nephrology. Will supply patient with a home blood pressure monitor script. Goal blood pressures to be below 140/90 (6) HLD (hyperlipidemia): Code(s): E78.5 - Hyperlipidemia, unspecified Category: Medical Qualifiers: Hyperlipidemia type: unspecified Qualified Code(s): E78.5 - Hyperlipidemia, unspecified Plan: Most recent lipid panel showing good control of his total cholesterol and LDL. Will continue his current dose of statin therapy with goal LDL to be optimally below 100 Orders: Orders AMB Hemoglobin A1c Today E11.8 - Type 2 diabetes mellitus with unspecified complications Medications: Refilled furosemide 40 mg (2 x 20 mg) PO DAILY 60 tabs 0RF 30 days R60.0 - Localized edema
[2025-02-03 08:45] VITALS: BP 140/86; PULSE 97; TEMP 36.3; O2SAT 97
== END 2025-02-03 09:18 | disposition home or self-care (01) ==
LOC: HO.HMCH 08:29
PROVIDERS: PCP Physician Assistant; Visit Provider Physician Assistant
DX: S88.911A Complete traumatic amputation of right lower leg, level unspecified, initial encounter (principal); N18.30 Chronic kidney disease, stage 3 unspecified; I63.40 Cerebral infarction due to embolism of unspecified cerebral artery; E11.8 Type 2 diabetes mellitus with unspecified complications; I10 Essential (primary) hypertension; E78.5 Hyperlipidemia, unspecified

== ENCOUNTER → 2025-02-03 08:29 | Outpatient (BNVA) | payer OTHER, SELFPAY | PROVIDERS: PCP Physician Assistant; Visit Provider Physician Assistant | DX: E11.22 Type 2 diabetes mellitus with diabetic chronic kidney disease (principal); I13.0 Hypertensive heart and chronic kidney disease with heart failure and stage 1 through stage 4 chronic kidney disease, or unspecified chronic kidney disease; E78.5 Hyperlipidemia, unspecified; E66.9 Obesity, unspecified; I50.9 Heart failure, unspecified; N18.30 Chronic kidney disease, stage 3 unspecified; K21.9 Gastro-esophageal reflux disease without esophagitis; Z86.73 Personal history of transient ischemic attack (TIA), and cerebral infarction without residual deficits; Z89.511 Acquired absence of right leg below knee | CPT/HCPCS: 83036; 99212 ==

== ENCOUNTER 2025-02-16 15:21 | Outpatient (AMB) | payer OTHER, SELFPAY ==
[2025-02-16 15:53] VITALS: BP 136/80; PULSE 106; O2SAT 96; BMI 46.5
--- NOTE | 2025-02-16 15:53 | MHC.OFFVIS ---
Vital Signs 02/16/25 15:53 Height 5 ft 9 in Weight 315 lb BMI 46.5 BP 136/80 Pulse 106 H Pulse Oximetry (%) 96 Intake Visit Reasons: needs Prep for HIV Allergies NSAIDS (Non-Steroidal Anti-Inflamma Allergy (Unknown, Verified 02/16/25 15:54) Unknown sulfamethoxazole (From Bactrim) Adverse Reaction (Intermediate, Verified 02/16/25 15:54) Elevated renal functions trimethoprim (From Bactrim) Adverse Reaction (Intermediate, Verified 02/16/25 15:54) Elevated renal functions HPI HPI needs Prep for HIV: Details: He is interested in HIV prep once maybe a month possible encounter. COUNT INCLUDES [facility] Medical History Exposure to bloodborne pathogen Abnormal stress test History of stroke Morbid obesity NOLAN (obstructive sleep apnea) HTN (hypertension) Right below-knee amputee Blind left eye Depression Neuropathy CVA (cerebral vascular accident) Sleep apnea Obesity Vitamin D deficiency HLD (hyperlipidemia) GERD (gastroesophageal reflux disease) Below knee amputation Type 2 diabetes mellitus Surgical History Hx of eye surgery History of amputation of right foot Family History Mother Diabetes Father Prostate cancer Paternal Aunt Diabetes Brother No problems noted. Brother No problems noted. Brother No problems noted. Brother No problems noted. Brother No problems noted. Sister No problems noted. Social History Housing: Apartment Are you a primary primary care nurse to a significant other at home: No Do you presently have visiting nurse or other home services: No Alcohol intake: never Patient Tobacco Use Status: Never used Tobacco e-Cigarette/Vaping Use: Never Used Second Hand Smoke Exposure: No service: No Current occupational status: disabled Cognitive needs: Yes (walk, wheelchair (w/c weighs 360lbs)) Hearing needs: No Vision needs: Yes (glasses) Review of Systems Const All systems reviewed & are unremarkable except as noted in HPI and below Physical Exam Vital Signs: Last Vital Signs Pulse 106 H 02/16/25 15:53 BP 136/80 02/16/25 15:53 Pulse Ox 96 02/16/25 15:53 BMI result Body Mass Index 46.5 Const General: cooperative Orientation/consciousness: patient oriented x3 HEENT Head: Yes normal to inspection Mouth: Normal oral and palatal mucosa present Eyes General: appearance normal, both eyes and all related structures Pupils: Equal, round and reactive pupils present Resp Effort & Inspection: normal respiratory effort Cardio Rate: regular rate Rhythm: regular rhythm GI Palpation (GI): Soft to palpation and nontender General: Yes no CVA tenderness Back/Spine/Pelvis Back: no CVA tenderness Skin General skin exam: no rashes or lesions noted Neuro General: patient oriented x3 Cranial nerves: Yes CN's II-XII intact bilaterally and Yes Equal, round and reactive pupils present Extrem General: Yes normal to inspection Psych Appearance: grossly normal Assessment & Plan Assessment & Plan (1) Exposure to bloodborne pathogen: Code(s): Z77.21 - Contact with and (suspected) exposure to potentially hazardous body fluids Category: Medical Plan: na (2) Encounter for counseling before starting and about pre-exposure prophylaxis for HIV: Code(s): Z29.81 - Encounter for HIV pre-exposure prophylaxis; Z71.89 - Other specified counseling Category: Medical Plan: Counseling on types of Prep done. He needs type free of renal affects as possible. Descovy day before encounter,day of and 48 h after. Check for STIs with PCP. Orders: Orders Hepatitis B Surface Antibody 02/17/25 Z29.81 - Encounter for HIV pre-exposure prophylaxis, Z71.89 - Other specified counseling Hepatitis B Surface Antigen 02/17/25 Z.81 - Encounter for HIV pre-exposure prophylaxis, Z71.89 - Other specified counseling HIV Ab/Ag 3 Months Z.81 - Encounter for HIV pre-exposure prophylaxis, Z71.89 - Other specified counseling HIV Ab/Ag 02/17/25 Z77. - Contact with and (suspected) exposure to potentially hazardous body fluids Hepatitis C Antibody 02/17/25 Z77. - Contact with and (suspected) exposure to potentially hazardous body fluids Syphilis Screen 02/17/25 Z77. - Contact with and (suspected) exposure to potentially hazardous body fluids Hepatitis A IgG 02/17/25 Z. - Encounter for HIV pre-exposure prophylaxis, Z71.89 - Other specified counseling HIV Ab/Ag 6 Months Z29.81 - Encounter for HIV pre-exposure prophylaxis, Z71.89 - Other specified counseling Medications: New emtricitabine-tenofovir alafen 200-25 mg (Descovy) 1 tab PO DAILY 30 tabs 1RF 30 days Coding Level of Care Code Est Pt Level 3 (99312) Diagnoses Exposure to bloodborne pathogen Z77.21 Encounter for counseling before starting and about pre-exposure prophylaxis for HIV Z29.81; Z71.89
--- OUTSIDE RECORDS SUMMARY | 2025-02-16 16:34 | XMS_ITS | Encounter Summary ---
Author Organization [facility] Address [address] [place] [address] Phone Care Team Providers Care Rn Interventional Name Role Phone Clay Guevara Primary Care Provider [phone] Reason for Visit * Reason Comments Med Refill Encounter Details Date Type Department Care Team (Late st Contact Info) Description 11/19/2023 Refill [facility] [address] [place] [address] Lucio Hancock MD [address] [place] [address] Social History Tobacco Use Types [...] Office Visit [facility] [address] [place] [address] Lucio Hancock MD [address] [place] [address] documented as of this encounter Visit Diagnoses Not on filedocumented in this encounter Care Teams Rn Interventional Relationship Specialty Start Date End Date Clay Guevara PA [address] [place] [address], [address] [place] [address] PCP - General Physician Guideman 06/23/20 documented as of this encounter
== END 2025-02-16 16:20 | disposition home or self-care (01) ==
LOC: HO.HID 15:21
PROVIDERS: PCP Physician Assistant; Visit Provider Internal Medicine
DX: Z77.21 Contact with and (suspected) exposure to potentially hazardous body fluids (principal); Z29.81 Encounter for HIV pre-exposure prophylaxis; Z71.89 Other specified counseling
CPT/HCPCS: 99213

== ENCOUNTER → 2025-02-16 15:21 | Outpatient (BNVA) | payer OTHER, SELFPAY | PROVIDERS: PCP Physician Assistant; Visit Provider Internal Medicine | DX: Z29.81 Encounter for HIV pre-exposure prophylaxis (principal); Z77.21 Contact with and (suspected) exposure to potentially hazardous body fluids; Z71.89 Other specified counseling | CPT/HCPCS: 99212 ==

== ENCOUNTER 2025-02-17 11:57 | Outpatient (REF) | payer OTHER, SELFPAY ==
[2025-02-17 12:23] LABS: MANUAL DIFF FLAG NO
[2025-02-17 12:35] LABS: Hematocrit 38.8 % (42.0-52.0); Hematocrit 39.4 % (42.0-52.0); Hemoglobin 12.8 g/dl (14.0-18.0); Hemoglobin 12.9 g/dl (14.0-18.0); Imm Gran Abs Auto 0.02 X10*3/uL (0.00-0.03); Imm Gran Pct Auto 0.3 % (0.0-0.4); Lymphocytes Absolute Auto 2.2 X10*3/uL (1.2-4.9); Mean Corpuscular HGB Conc 32.5 g/dl (31.0-36.0); Mean Corpuscular HGB Conc 33.2 g/dl (31.0-36.0); Mean Corpuscular Hemoglobin 28.0 pg (27.0-33.0); Mean Corpuscular Hemoglobin 28.3 pg (27.0-33.0); Mean Corpuscular Volume 85.1 fL (80.0-98.0); Mean Corpuscular Volume 86.2 fL (80.0-98.0); NRBC Abs Auto 0.000 X10*3/uL (0.0-0.012); NRBC Pct Auto 0.0 /100WBC (0.0-0.2); Platelet Count 334 X10*3/uL (160-400); Platelet Count 336 X10*3/uL (160-400); Red Blood Count 4.56 X10*6/uL (4.60-5.80); Red Blood Count 4.57 X10*6/uL (4.60-5.80); White Blood Count 6.0 X10*3/uL (4.8-10.8); White Blood Count 6.1 X10*3/uL (4.8-10.8)
[2025-02-17 12:47] LABS: INTERNATIONAL NORM RATIO 0.9 (0.9-1.1); Prothrombin Time 10.6 SEC (10.9-12.4)
[2025-02-17 12:48] LABS: Hemoglobin A1C 147.7442 umol/L; Total Hemoglobin (HGBA1C) 3355.9784 umol/L
[2025-02-17 12:49] LABS: Partial Thromboplastin Time 40.6 SEC (26.0-36.8)
[2025-02-17 13:16] LABS: Cholesterol 115 mg/dL (<200); HDL Cholesterol 23 mg/dL (>40); Triglycerides 161 mg/dL (<150)
--- OUTSIDE RECORDS SUMMARY | 2025-02-17 13:17 | XMS_ITS | Encounter Summary ---
Author Organization [facility] Address [address] [place] [address] Phone Care Team Providers Care Cyber Transport Systems Specialist Name Role Phone Clay Guevara Primary Care Provider [phone] Reason for Visit * Reason Comments Med Refill Encounter Details Date Type Department Care Team (Late st Contact Info) Description 11/19/2023 Refill [facility] [address] [place] [address] Lucio Hancock MD [address] [facility] [place] [address] Social History Tobacco Use Types [...] Office Visit [facility] [address] [place] [address] Lucio Hancock MD [address] [facility] [place] [address] documented as of this encounter Visit Diagnoses Not on filedocumented in this encounter Care Teams Cyber Transport Systems Specialist Relationship Specialty Start Date End Date Clay Guevara PA [address] [place] [address], [address] [place] [address] PCP - General Physician Stage Manager 06/23/20 documented as of this encounter
[2025-02-17 13:20] LABS: Alanine Aminotransferase 33 U/L (0-40); Albumin Level 3.9 g/dL (3.5-5.0); Alkaline Phosphatase 109 U/L (39-117); Anion Gap 12 (12-20); Aspartate Amino Transferase 31 U/L (5-37); Blood Urea Nitrogen 27 mg/dL (9-16); Calcium 9.4 mg/dL (8.4-10.2); Carbon Dioxide 27 mmol/L (22-29); Chloride 109 mmol/L (96-108); Cholesterol 117 mg/dL (<200); Estimated Glomerular Filt Rate 52; HDL Cholesterol 23 mg/dL (>40); Potassium 3.8 mmol/L (3.3-5.1); Sodium 144 mmol/L (135-145); Total Protein 6.9 g/dL (6.5-8.0); Triglycerides 160 mg/dL (<150)
[2025-02-17 13:22] LABS: Syphilis Screen Nonreactive (Nonreactive)
[2025-02-17 13:23] LABS: HBS Num1 1.00 mIU/mL (0-7.99); HBsAGNum1 0.33 S/CO (0.00-0.99); HIV Num 1 0.05 S/CO (0.00-0.99); Hepatitis B Surface Antigen Negative (Negative); ~HepC Num1 0.07 S/CO (0.00-0.79); ~Hepatitis B Surface Antibody NONREACTIVE (Nonreactive); ~Hepatitis C Antibody Nonreactive (Nonreactive)
[2025-02-20 04:07] LABS: ~Hepatitis A Antibody IgG 0.41 S/CO (0.00-0.99)
== END 2025-02-17 11:58 | disposition home or self-care (01) ==
LOC: HO.LAB 11:57
PROVIDERS: Absent Provider Surgery; PCP Physician Assistant; Referring Provider Internal Medicine; Visit Provider Physician Assistant
DX: E11.8 Type 2 diabetes mellitus with unspecified complications (principal); E66.01 Morbid (severe) obesity due to excess calories; Z79.4 Long term (current) use of insulin; Z79.85 Long-term (current) use of injectable non-insulin antidiabetic drugs; I10 Essential (primary) hypertension; K21.9 Gastro-esophageal reflux disease without esophagitis; Z29.81 Encounter for HIV pre-exposure prophylaxis; Z77.21 Contact with and (suspected) exposure to potentially hazardous body fluids; Z71.89 Other specified counseling; E78.5 Hyperlipidemia, unspecified; E55.9 Vitamin D deficiency, unspecified
CPT/HCPCS: 36415; 80053; 80061; 82306; 82947; 83036; 83525; 84443; 85025; 85027; 85610; 85730; 86140; 86706; 86708; 86780; 86803; 87340; 87389; 99212

== ENCOUNTER 2025-02-17 15:57 | Outpatient (AMB) | payer OTHER, SELFPAY ==
--- NOTE | 2025-02-17 15:58 | A.OFFVIS_ITS ---
Vital Signs 02/17/25 16:06 Height 5 ft 9 in BMI Reason not done Patient refused/unable BP 124/82 Blood Pressure Location Rt brachial Position Sitting Pulse 103 H Pulse Source Pulse Oximeter Pulse Oximetry (%) 98 Oxygen Delivery Method Room Air Intake Visit Reasons: DM/ Needs room 5 Intake Note: Patient presents today for a follow-up on Type 2 Diabetes Mellitus: Last Diabetic eye exam was on: 05/2024 Last Podiatry exam was on: Patient needs new referral to see a new Healthcare Administrator. Most recent HgA1c: 6.2%, 02/17/2025 Random Glucose: 145 mg/dL, Today Crayon Painter Required: No Allergies NSAIDS (Non-Steroidal Anti-Inflamma Allergy (Unknown, Verified 02/16/25 15:54) Unknown sulfamethoxazole (From Bactrim) Adverse Reaction (Intermediate, Verified 02/16/25 15:54) Elevated renal functions trimethoprim (From Bactrim) Adverse Reaction (Intermediate, Verified 02/16/25 15:54) Elevated renal functions HPI Comments Details: This is a 39-year-old male with a past medical history of type 2 diabetes, fatty liver disease, lymphedema, peripheral arterial disease, CKD stage 3, hypertension, obesity, NOLAN, GERD, CVA, hyperlipidemia and vitamin-D deficiency presenting for diabetic management. He was last seen by my colleague in November 2024. He was initially diagnosed with type 2 diabetes at the age of 14. Current medication regimen: Mounjaro 15 mg weekly, Tresiba 70 units at bedtime, Humalog 38 units before dinner He has shakes and bars throughout the day as part of his meal plan, and he eats food for dinner. He has been undergoing evaluation for bariatric surgery, and he has been cleared for surgery which he says we will be next month hopefully. Past medication: Was initially on metformin and glyburide and began using insulin at age 20. 80% of his blood sugars are within target range on his CGM Very high 1% High 18% Less than 1% hypoglycemia He denies episodes of hypoglycemia His hemoglobin A1c is 6.2% today. Hypoglycemia: None Hyperglycemia symptoms: None Diabetic complications: Retinopathy, neuropathy, nephropathy (CKD and microalbuminuria), atherosclerotic vascular disease. CAD, CVA, Right BKA 8 years ago. ROS: Constitutional: No unexplained weight loss, fever, chills, fatigue or night sweats. Respiratory: No shortness of breath Cardiovascular: No chest pain Neurologic: No headache or dizziness Endocrine: No cold or heat intolerance. No polyuria or polydipsia. Physical exam: Constitutional: Alert, in no distress. Neck: Supple, Full range of motion. No lymphadenopathy. No palpable thyroid masses. Respiratory: Clear to auscultation. Cardiovascular: S1 S2 regular. No murmurs Neurologic: No focal neurological deficits. Extremities: Bilateral lower extremity edema. Right BKA. Psychiatric: Normal mood and affect [facility] Medical History (Updated 02/16/25 @ 16:17 by Kary Renee MD) Exposure to bloodborne pathogen Abnormal stress test History of stroke Morbid obesity NOLAN (obstructive sleep apnea) HTN (hypertension) Right below-knee amputee Blind left eye Depression Neuropathy CVA (cerebral vascular accident) Sleep apnea Obesity Vitamin D deficiency HLD (hyperlipidemia) GERD (gastroesophageal reflux disease) Below knee amputation Type 2 diabetes mellitus Surgical History Hx of eye surgery History of amputation of right foot Family History Mother Diabetes Father Prostate cancer Paternal Aunt Diabetes Brother No problems noted. Brother No problems noted. Brother No problems noted. Brother No problems noted. Brother No problems noted. Sister No problems noted. Social History Housing: Apartment Are you a primary farm or ranch animal caretaker to a significant other at home: No Do you presently have visiting nurse or other home services: No Alcohol intake: never Patient Tobacco Use Status: Never used Tobacco e-Cigarette/Vaping Use: Never Used Second Hand Smoke Exposure: No service: No Current occupational status: disabled Cognitive needs: Yes (walk, wheelchair (w/c weighs 360lbs)) Hearing needs: No Vision needs: Yes (glasses) Physical Exam Vital Signs: Last Vital Signs Pulse 103 H 02/17/25 16:06 BP 124/82 02/17/25 16:06 Pulse Ox 98 02/17/25 16:06 Oxygen Delivery Method Room Air 02/17/25 16:06 Results Reviewed Results Reviewed: Laboratory Last Values Glucose (Clinic) 146 mg/dL (60-115) H 02/17/25 16:07 Laboratory Tests 06/16/24 02/17/25 12:07 12:22 Plt Count 334 Creatinine 1.50 H Estimated GFR 52 Hemoglobin A1c % 6.2 H AST 31 ALT 33 Triglycerides 161 H Cholesterol 115 LDL Cholesterol, Calc 60 HDL Cholesterol 23 L TSH 1.48 Urine Creatinine 228.45 Urine Microalbumin > 2000.0 Microalb/Creat Ratio 875.4 H Assessment & Plan Assessment & Plan (1) Type 2 diabetes mellitus with unspecified complications: Code(s): E11.8 - Type 2 diabetes mellitus with unspecified complications Category: Medical (2) Morbid obesity: Code(s): E66.01 - Morbid (severe) obesity due to excess calories Category: Medical Plan In summary this is a 39-year-old male with longstanding type 2 diabetes that is currently well-controlled on basal bolus insulin and Mounjaro. He has been undergoing evaluation for bariatric surgery, and he has been cleared by his surgeon to proceed. He feels very ready for the surgery. His diabetes is well-controlled. I made no medication changes today. Continue efforts at weight loss. He is following a diabetic diet. Reviewed treatment of hypoglycemia. Sent glucose tablets to his pharmacy. Follow up in 6-8 weeks for re-evaluation. Medications: New glucose (Dex4 Glucose Quick Dissolve) until symptoms of low blood sugar are controlled 16 grams (4 x 4 gram) PO Q15M PRN 30 tabs 3RF hypoglycemia Changed From insulin lispro (Humalog KwikPen U-200 Insulin) 34 units (0.17 mL) subcut .ac dinner 30 days 9 mL 5RF To insulin lispro (Humalog KwikPen U-200 Insulin) 38 units (0.19 mL) subcut .ac dinner 6 mL 5RF 30 days Refilled insulin degludec (Tresiba FlexTouch U-200 insulin) 70 units (0.35 mL) subcut BEDTIME 12 mL 5RF 30 days Coding Level of Care Code Est Pt Level 4 (67743) Complex EM visit Add On G2211 Diagnoses Type 2 diabetes mellitus with unspecified complications E11.8 Morbid obesity E66.01
[2025-02-17 16:06] VITALS: BP 124/82; PULSE 103; O2SAT 98
[2025-02-17 16:11] LABS: Glucose, Whole Blood 146 mg/dL (60-115)
== END 2025-02-17 16:36 | disposition home or self-care (01) ==
LOC: HO.ENCR 15:58
PROVIDERS: PCP Physician Assistant; Visit Provider Physician Assistant Medical
DX: E11.8 Type 2 diabetes mellitus with unspecified complications (principal); E66.01 Morbid (severe) obesity due to excess calories

== ENCOUNTER 2025-03-03 08:17 | Outpatient (AMB) | payer OTHER, SELFPAY ==
[2025-03-02 22:36] VITALS: BMI 43.9
--- NOTE | 2025-03-02 22:36 | A.OFFVIS_ITS ---
VS Expanded 03/02/25 22:36 Height 5 ft 9 in Weight 297 lb BMI 43.9 Intake Visit Reasons: TV Pre Op LSG 03/24/25 Allergies NSAIDS (Non-Steroidal Anti-Inflamma Allergy (Unknown, Verified 03/02/25 22:38) Unknown sulfamethoxazole (From Bactrim) Adverse Reaction (Intermediate, Verified 03/02/25 22:38) Elevated renal functions trimethoprim (From Bactrim) Adverse Reaction (Intermediate, Verified 03/02/25 22:38) Elevated renal functions Medication List - Last Reconciled 03/02/25 by Neri Hays MD acetaminophen ER 1,300 mg (2 x 650 mg) PO Q8H PRN 90 days alcohol swabs 1 pad topical QID aspirin (Adult Aspirin Regimen) 81 mg PO DAILY 90 days atorvastatin 80 mg PO BEDTIME 30 days [BARIATRIC WALKER As directed] blood pressure kit-extra large As directed blood pressure monitor As directed blood sugar diagnostic (FreeStyle Lite Strips) As directed blood sugar diagnostic (FreeStyle Lite Strips) USE TO TEST FINGER STICK BLOOD SUGAR 4 (FOUR) TIMES DAILY blood-glucose sensor (Dexcom G7 Sensor device) As directed change every 10 days carvedilol 25 mg PO BID chair, wheel (Wheel chair) LIFETIME USE cholecalciferol (vitamin D3) (Vitamin D3) 25 mcg PO DAILY duloxetine 30 mg PO BID emtricitabine-tenofovir alafen 200-25 mg (Descovy) 1 tab PO DAILY 30 days famotidine 20 mg PO DAILY ferrous sulfate 325 mg PO DAILY Held on 09/24/23. Instructions: Doctor's Order furosemide 40 mg (2 x 20 mg) PO DAILY 30 days gabapentin 800 mg PO TID 30 days glucose (Dex4 Glucose Quick Dissolve) 16 grams (4 x 4 gram) PO Q15M PRN hydralazine 100 mg PO BID incontinence pad, liner, disp As directed insulin degludec (Tresiba FlexTouch U-200 insulin) 70 units (0.35 mL) subcut BEDTIME 30 days insulin lispro (Humalog KwikPen U-200 Insulin) 38 units (0.19 mL) subcut .ac dinner 30 days lancets As directed lancets (Easy Touch Lancets) As directed 3 times daily latex gloves (Latex Gloves, Large) As directed lisinopril 1 tab PO DAILY [manual wheel chair As directed with adjustable leg rests ] melatonin 10 mg PO DAILY miscellaneous medical supply 1 ea miscellaneous DAILY 90 days nifedipine ER 90 mg PO DAILY 90 days omeprazole 20 mg PO DAILY 90 days ondansetron 4 mg PO Q12H pantoprazole 40 mg PO DAILY pen needle, diabetic As directed polyethylene glycol 3350 17 grams PO DAILY [Power wheel chair As directed] [Replacement prosthesis for right lower extremity As directed] spironolactone 25 mg PO DAILY 90 days Held on 09/24/23. Instructions: Doctor's Order sucralfate 10 mL PO BID tirzepatide (weight loss) (Zepbound) 15 mg (0.5 mL) subcut QWEEK tramadol 50 mg PO TID PRN 30 days walker (Ultra-Light Rollator mis) As directed [Walker repair As directed] HPI HPI TV Pre Op LSG 03/24/25: Details: Start time: 8.30am, End time: 9am I spent 25 minutes speaking with the patient on the phone plus an additional 5 minutes reviewing and updating records for a total of 30 minutes HPI Comments Details: Overall weight loss: 62lbs, or 17.5% TBWL Is doing 2 Premier shakes with half scoop each in almond milk, 3 Pure protein bars and one meal (10 forks each) Exercise: Stair climbing 4 times per day for 10min each. Patient is an amputee [facility] Medical History Exposure to bloodborne pathogen Abnormal stress test History of stroke Morbid obesity NOLAN (obstructive sleep apnea) HTN (hypertension) Right below-knee amputee Blind left eye Depression Neuropathy CVA (cerebral vascular accident) Sleep apnea Obesity Vitamin D deficiency HLD (hyperlipidemia) GERD (gastroesophageal reflux disease) Below knee amputation Type 2 diabetes mellitus Surgical History Hx of eye surgery History of amputation of right foot Family History Mother Diabetes Father Prostate cancer Paternal Aunt Diabetes Brother No problems noted. Brother No problems noted. Brother No problems noted. Brother No problems noted. Brother No problems noted. Sister No problems noted. Social History Housing: Apartment Are you a primary human services care specialist to a significant other at home: No Do you presently have visiting nurse or other home services: No Alcohol intake: never Patient Tobacco Use Status: Never used Tobacco e-Cigarette/Vaping Use: Never Used Second Hand Smoke Exposure: No service: No Current occupational status: disabled Cognitive needs: Yes (walk, wheelchair (w/c weighs 360lbs)) Hearing needs: No Vision needs: Yes (glasses) Physical Exam Vital Signs: BMI result Body Mass Index 43.9 Telehealth Telehealth Telehealth Platform: Telephone Location of provider rendering services: practice address Location of patient: address on file Patient Identification confirmed using: Name, : Yes Telehealth method: voice only Patient verbally consented to treatment: Yes Patient verbally consented to billing insurance company: Yes Patient informed of any privacy concerns related to visit: Yes Minutes spent on Phone/Video with Pt.: 30 Assessment & Plan Assessment & Plan (1) Morbid obesity: Code(s): E66.01 - Morbid (severe) obesity due to excess calories Category: Medical Plan: 1. Plan for lap sleeve gastrectomy including upper GI endoscopy. All tests has been completed and reviewed and the patient is cleared for the surgery. ?If diaphragmatic or ventral hernias are present at time of surgery, these will be repaired laparoscopically as well. Risks and complications were discussed in detail including possible conversion to an open procedure, anastomotic leak, bleeding requiring transfusion, small bowel obstruction, , DVT and pulmonary embolism, cardiac, or pulmonary complications, as oil heaterman complications such as anastomotic ulcer, insufficient weight loss and vitamin deficiencies. I emphasized the importance of close follow-up, adherence to instructions and good communication. So far he has proven to be an excellent communicator and very compliant with all our directions accomplishing a great weight loss. I believe that he is an excellent candidate and he is ready. 2. Preop prescriptions were provided and explained the purpose of each one. Need to be purchased preop. Start Pantoprazole now as you get it from the pharmacy, 1 pill per day. Sucralfate and Zofran are for after surgery as needed. 3. Bowel prep: please do 7 packets ?of Miralax mixing each one with a an 8oz glass of water, crystal light, gatorade zero, or propel ?on 03/22/25 and the same amount on 03/23/25. The Miralax you begin with one packet at a time in 8oz water or crystal light, gatorade zero, or propel ?as early in the day as you can and you do them back to back until you finish them. Continue the protein shakes during ?the bowel prep. 4. Needs to purchase 1oz medicine cups . 5. Needs to purchase Children's liquid Tylenol for postop pain control. 6. He needs to STOP: the Tirzepatide injections and the Aspirin on 03/17/25, the Furosemide and Gabapentin on 03/21/25 (last dose). Avoid aspirin, motrin, Advil, Aleve, Meloxicam, Excedrin, Ibuprofen, Naproxyn. Tylenol is OK. 7. He needs to purchase the Celebrate multivitamins from the hospital's gift shop, chewable or pills whatever you prefer. 8. Check your blood sugar daily and let me know immediately of the blood sugar is below 100. 9. Importance of adherence to postop folllow-up and recommendations was underscored and she understands that. 10. Stop food and bars as of TODAY 03/03/25 and continue with 3 PREMIER premade protein shakes (8oz per shake and NOT the whole bottle) at 11am-1pm, 2pm-4pm and 5pm-7pm and TWO more premade PREMIER protein shakes (WHOLE BOTTLE) at 8pm-10pm and 11pm-1am. 11. No soups, broths or V8 12. The patient's?medical?history has been reviewed and they are considered low risk for post op DVT and therefore DVT prophylaxis is not considered necessary. Travel after surgery was reviewed. The patient has not disclosed any travel plans during the first 30 days after surgery and they have been advised that within the first 30 days after surgery any bus, plane, train or car travel over 2 hours in duration is contraindicated due to the possibility of developing blood clots from immobility. Any travel, needs to include periods of ambulation of 10 minutes in duration every 2 hours.? Patient was instructed to discuss any plans for travel during this period with their bariatric surgeon.? 13. Use your CPAP daily and bring it to the hospital with your mask 14. As of tomorrow, please check your blood pressure daily in the morning. If your blood pressure is: Below 120/70: take only the Spironolactone 121/71 to 130/80: take ONE Spironolactone, ONE Carvedilol and ONE Hydralazine 131/81 to 140/90: take ONE Spironolactone, ONE Carvedilol, ONE Nifedipine, HALF Furosemide, and ONE Hydralazine Over 141/91: take ONE Spironolactone, ONE Carvedilol, ONE Nifedipine, HALF Furosemide, ONE Lisinopril and ONE Hydralazine 15. Please take at the day of surgery the following medications: Lisinopril, Carvedilol, Nifedipine and Hydralazine IF the blood pressure that day is high enough to justify it based on the parameters at the previous bullet point. 16. Absolutely no smoking or vaping, or marijuana until the surgery and for at least the first 4 weeks. Only nicotine patches are allowed. 17. Send me weight measurements from your home scale on Sunday03/09/15, Sunday03/16/25 and on Sunday03/24/25 18. Avoid any steroids by mouth for any reason. Let me know if someone prescribes them to you 19. These instructions supersede anything else you read in the handbook, anything you watched in videos or classes or you were told by any other provider. If there is any conflict, you follow the above instructions and nothing else.
--- OUTSIDE RECORDS SUMMARY | 2025-03-03 08:22 | XMS_ITS | Encounter Summary ---
Author Organization [facility] Address [address] [place] [address] Phone Care Team Providers Care District Branch Manager Name Role Phone Clay Guevara Primary Care Provider [phone] Reason for Visit * Reason Comments Med Refill Encounter Details Date Type Department Care Team (Late st Contact Info) Description 11/19/2023 Refill [facility] [address] [place] [address] Lucio Hancock MD [address] [place] [address] Social History Tobacco Use Types [...] Office Visit [facility] [address] [place] [address] Lucio Hancock MD [address] [place] [address] documented as of this encounter Visit Diagnoses Not on filedocumented in this encounter Care Teams District Branch Manager Relationship Specialty Start Date End Date Clay Guevara PA [address] [place] [address], [address] [place] [address] PCP - General Physician Dishwashing Machine Operator 06/23/20 documented as of this encounter
== END 2025-03-03 11:04 | disposition home or self-care (01) ==
LOC: HO.HBS 08:17
PROVIDERS: PCP Physician Assistant; Visit Provider Surgery
DX: E66.01 Morbid (severe) obesity due to excess calories (principal)
CPT/HCPCS: 99214

== ENCOUNTER → 2025-03-17 11:09 | Outpatient (REF) | payer OTHER, SELFPAY ==
--- NOTE | 2025-03-17 11:38 | ECG_ITS ---
Test Reason : PREOP Blood Pressure : */* mmHG Vent. Rate : 93 BPM Atrial Rate : 93 BPM P-R Int : 194 ms QRS Dur : 86 ms QT Int : 356 ms P-R-T Axes : * -33 14 degrees QTcB Int : 442 ms Normal sinus rhythm Left axis deviation Minimal voltage criteria for LVH, may be normal variant ( R in aVL ) Possible Anterior infarct , age undetermined Abnormal ECG No previous ECGs available Referred By: Santa Childers Electronically Signed By: Jethro Romero
== END ==
LOC: HO.CARD 11:09
PROVIDERS: Absent Provider Physician Assistant Surgical; PCP Physician Assistant; Visit Provider Physician Assistant Surgical
DX: Z01.810 Encounter for preprocedural cardiovascular examination (principal)
CPT/HCPCS: 93005

== ENCOUNTER → 2025-03-17 11:38 | Outpatient (BNV) | payer OTHER, SELFPAY | PROVIDERS: Absent Provider Physician Assistant Surgical; PCP Physician Assistant; Visit Provider Internal Medicine Cardiovascular Disease | DX: R94.31 Abnormal electrocardiogram [ECG] [EKG] (principal); Z01.810 Encounter for preprocedural cardiovascular examination | CPT/HCPCS: 93010 ==

== ENCOUNTER 2025-03-24 | Day surgery (SDC) | payer OTHER, SELFPAY ==
[2025-03-17 10:02] VITALS: BMI 43.9
[2025-03-24] VITALS (8 sets, daily range): BP systolic 111–133; BP diastolic 55–72; PULSE 76–79; RESP 18; TEMP 36.2–36.6; O2SAT 91–98; BMI 43.3
--- NOTE | 2025-03-24 07:00 | HO.ANESPROP2 ---
Documented by User: Doreen Hernández NP 03/20/25 08:18 HPI - Anesthesia Eval Consult details Narrative: 39yo M for Gastrectomy Sleeve - EGD, possible diaphragmatic hernia, possible ventral hernia, possible open Follows renal for CKD 3 (baseline creat 1.5-1.7). Stable with good BP control at 05/2024 office visit s/p R BKA Pt with previous cardiac w/u 2020 - echo and stress ok (most recent EKG abnormal but no change from 2020) Anesthesia Pre-Procedure Meds Is the patient on any of the following meds?: GLP1/DPP4 PMFSH Active Problems Active Problems: All Active Problems Fatty liver disease, nonalcoholic (Acute) Encounter for counseling before starting and about pre-exposure prophylaxis for HIV (Acute) Abnormal barium swallow (Acute) Constipation (Acute) Lymphedema (Acute) PAD (peripheral artery disease) (Acute) Varicose veins of left lower extremity with inflammation (Acute) Bilateral carotid bruits (Acute) Impingement of right shoulder (Acute) Lower extremity edema (Acute) Degenerative arthritis of right shoulder region (Acute) Right shoulder pain (Acute) Tinea (Acute) Vitamin B1 deficiency (Acute) CKD (chronic kidney disease) stage 3, GFR 30-59 ml/min (Acute) Annual physical exam (Acute) Essential hypertension (Acute) Type 2 diabetes mellitus with unspecified complications (Acute) Preoperative cardiovascular examination (Acute) Phantom pain (Acute) Amputated right leg (Acute) Morbidly obese (Acute) HTN (hypertension) (Acute) Exposure to bloodborne pathogen (Acute) Morbid obesity (Acute) NOLAN (obstructive sleep apnea) (Acute) GERD (gastroesophageal reflux disease) (Acute) Neuropathy (Acute) CVA (cerebral vascular accident) (Acute ~2019) Sleep apnea (Acute) Obesity (Acute) Vitamin D deficiency (Acute) HLD (hyperlipidemia) (Acute) Past Medical History Medical History (Updated 03/17/25 @ 10:06 by Ciara Fisher RN) Arthritis PAD (peripheral artery disease) CKD (chronic kidney disease) Exposure to bloodborne pathogen Abnormal stress test History of stroke Morbid obesity NOLAN (obstructive sleep apnea) HTN (hypertension) Right below-knee amputee Blind left eye Depression Neuropathy CVA (cerebral vascular accident) (~2019) Sleep apnea Obesity Vitamin D deficiency HLD (hyperlipidemia) GERD (gastroesophageal reflux disease) Below knee amputation Type 2 diabetes mellitus Family History Family History Mother Diabetes Father Prostate cancer Paternal Aunt Diabetes Brother No problems noted. Brother No problems noted. Brother No problems noted. Brother No problems noted. Brother No problems noted. Sister No problems noted. Family history of problems with anesthesia: No Surgical History Surgical History (Updated 03/17/25 @ 10:07 by Ciara Fisher, RN) History of esophagogastroduodenoscopy (EGD) (10/15/24) Hx of eye surgery History of amputation of right foot History of Problems with Anesthesia: No Social History Social History (Updated 03/17/25 @ 10:08 by Ciara Fisher, ROBS[place]) Household Members: None Housing: Apartment Are you a primary adult care manager to a significant other at home: No Do you presently have visiting nurse or other home services: Yes ([employer] daily) Alcohol intake: never Patient Tobacco Use Status: Never used Tobacco e-Cigarette/Vaping Use: Never Used Second Hand Smoke Exposure: No Use of substances other than those prescribed or required for medical reasons: No Have you been hit, kicked, punched, or otherwise hurt by someone within the past year? If so, by whom?: No Advance Directives: No Advance Directives Information Provided: Yes Advance Directives on File: No Poor oral hygiene: No service: No Current occupational status: disabled Cognitive needs: Yes (walk, wheelchair (w/c weighs 360lbs)) Hearing needs: No Vision needs: Yes (glasses) Meds Allergies Allergy/AdvReac Type Severity Reaction Status Date / Time NSAIDS (Non-Steroidal Allergy Unknown Unknown Verified 03/02/25 22:38 Anti-Inflamma sulfamethoxazole (From AdvReac Intermediate Elevated Verified 03/02/25 22:38 Bactrim) renal functions trimethoprim (From Bactrim) AdvReac Intermediate Elevated Verified 03/02/25 22:38 renal functions Home Medications ?Medication ?Instructions ?Recorded ?Confirmed ?Last Taken ?Type lisinopril 20 mg tablet 1 tab PO DAILY 12/23/20 03/17/25 03/24/25 History famotidine 20 mg tablet 20 mg PO BEDTIME 03/17/25 03/17/25 03/23/25 History insulin lispro 200 unit/mL (3 mL) 38 unit subcut .ac dinner PRN 03/17/25 03/17/25 03/22/25 History subcutaneous pen (Humalog KwikPen Hyperglycemia U-200 Insulin) Exam Height,Weight and Vital Signs: Height 5 ft 9 in Weight 134.717 kg Pertinent Lab Results Pertinent Lab Results: Laboratory Tests 03/17/25 11:55 Blood Type O Positive Antibody Screen NEGATIVE Laboratory Tests 02/17/25 12:22 WBC 6.1 Hgb 12.8 L Hct 39.4 L Plt Count 336 Sodium 144 Potassium 3.8 Chloride 109 H Carbon Dioxide 27 BUN 27 H Creatinine 1.50 H Narrative Narrative: EKG 03/2025 Vent. Rate : 93 BPM Atrial Rate : 93 BPM P-R Int : 194 ms QRS Dur : 86 ms QT Int : 356 ms P-R-T Axes : * -33 14 degrees QTcB Int : 442 ms Normal sinus rhythm Left axis deviation Minimal voltage criteria for LVH, may be normal variant ( R in aVL ) Possible Anterior infarct , age undetermined Abnormal ECG No change from previous at [facility] [place] cardiology Assessment and Plan Assessment Anesthesia Assessment: Chart Reviewed Final Anesthetic Review Family History of Problems with Anesthesia: No History of Problems with Anesthesia: No Documented by User: Elaine Boudreaux NP 03/23/25 11:28 HPI - Anesthesia Eval Consult details Narrative: 39yo M for Gastrectomy Sleeve - EGD, possible diaphragmatic hernia, possible ventral hernia, possible open Follows renal for CKD 3 (baseline creat 1.5-1.7). Stable with good BP control at 05/2024 office visit s/p R BKA Pt with previous cardiac w/u 2020 - echo and stress ok (most recent EKG abnormal but no change from 2020) Morbid obesity BMI: 43.9 [facility] Past Medical History Medical History (Updated 03/17/25 @ 10:06 by Ciara Fisher, [place]) Arthritis PAD (peripheral artery disease) CKD (chronic kidney disease) Exposure to bloodborne pathogen Abnormal stress test History of stroke Morbid obesity NOLAN (obstructive sleep apnea) HTN (hypertension) Right below-knee amputee Blind left eye Depression Neuropathy CVA (cerebral vascular accident) (~2019) Sleep apnea Obesity Vitamin D deficiency HLD (hyperlipidemia) GERD (gastroesophageal reflux disease) Below knee amputation Type 2 diabetes mellitus Family History Family History Mother Diabetes Father Prostate cancer Paternal Aunt Diabetes Brother No problems noted. Brother No problems noted. Brother No problems noted. Brother No problems noted. Brother No problems noted. Sister No problems noted. Surgical History Surgical History (Updated 03/17/25 @ 10:07 by Ciara Fisher, RN) History of esophagogastroduodenoscopy (EGD) (10/15/24) Hx of eye surgery History of amputation of right foot Social History Social History (Updated 03/17/25 @ 10:08 by Ciara Fisher, RN) Household Members: None Housing: Apartment Are you a primary adult care manager to a significant other at home: No Do you presently have visiting nurse or other home services: Yes ([employer] daily) Alcohol intake: never Patient Tobacco Use Status: Never used Tobacco e-Cigarette/Vaping Use: Never Used Second Hand Smoke Exposure: No Use of substances other than those prescribed or required for medical reasons: No Have you been hit, kicked, punched, or otherwise hurt by someone within the past year? If so, by whom?: No Advance Directives: No Advance Directives Information Provided: Yes Advance Directives on File: No Poor oral hygiene: No service: No Current occupational status: disabled Cognitive needs: Yes (walk, wheelchair (w/c weighs 360lbs)) Hearing needs: No Vision needs: Yes (glasses) Meds Allergies Allergy/AdvReac Type Severity Reaction Status Date / Time NSAIDS (Non-Steroidal Allergy Unknown Unknown Verified 03/02/25 22:38 Anti-Inflamma sulfamethoxazole (From AdvReac Intermediate Elevated Verified 03/02/25 22:38 Bactrim) renal functions trimethoprim (From Bactrim) AdvReac Intermediate Elevated Verified 03/02/25 22:38 renal functions Home Medications ?Medication ?Instructions ?Recorded ?Confirmed ?Last Taken ?Type lisinopril 20 mg tablet 1 tab PO DAILY 12/23/20 03/17/25 03/24/25 History famotidine 20 mg tablet 20 mg PO BEDTIME 03/17/25 03/17/25 03/23/25 History insulin lispro 200 unit/mL (3 mL) 38 unit subcut .ac dinner PRN 03/17/25 03/17/25 03/22/25 History subcutaneous pen (Humalog KwikPen Hyperglycemia U-200 Insulin) Documented by User: Christiana Carrillo DO 03/24/25 07:19 HPI - Anesthesia Eval Consult details Narrative: 39yo M for Gastrectomy Sleeve - EGD, possible diaphragmatic hernia, possible ventral hernia, possible open Follows renal for CKD 3 (baseline creat 1.5-1.7). Stable with good BP control at 05/2024 office visit s/p R BKA Pt with previous cardiac w/u 2020 - echo and stress ok (most recent EKG abnormal but no change from 2020) Morbid obesity BMI: 43.9 CVA with residual right sided weakness Anesthesia Pre-Procedure Meds Is the patient on any of the following meds?: GLP1/DPP4 PMFSH Past Medical History Medical History (Updated 03/17/25 @ 10:06 by Ciara Fisher, RN) Arthritis PAD (peripheral artery disease) CKD (chronic kidney disease) Exposure to bloodborne pathogen Abnormal stress test History of stroke Morbid obesity NOLAN (obstructive sleep apnea) HTN (hypertension) Right below-knee amputee Blind left eye Depression Neuropathy CVA (cerebral vascular accident) (~2018) Sleep apnea Obesity Vitamin D deficiency HLD (hyperlipidemia) GERD (gastroesophageal reflux disease) Below knee amputation Type 2 diabetes mellitus Family History Family History Mother Diabetes Father Prostate cancer Paternal Aunt Diabetes Brother No problems noted. Brother No problems noted. Brother No problems noted. Brother No problems noted. Brother No problems noted. Sister No problems noted. Family history of problems with anesthesia: No Surgical History Surgical History (Updated 03/17/25 @ 10:07 by Ciara Fisher RN) History of esophagogastroduodenoscopy (EGD) (10/15/24) Hx of eye surgery History of amputation of right foot History of Problems with Anesthesia: No Social History Social History (Updated 03/17/25 @ 10:08 by Ciara Fisher RN) Household Members: None Housing: Apartment Are you a primary adult care manager to a significant other at home: No Do you presently have visiting nurse or other home services: Yes ([employer] daily) Alcohol intake: never Patient Tobacco Use Status: Never used Tobacco e-Cigarette/Vaping Use: Never Used Second Hand Smoke Exposure: No Use of substances other than those prescribed or required for medical reasons: No Have you been hit, kicked, punched, or otherwise hurt by someone within the past year? If so, by whom?: No Advance Directives: No Advance Directives Information Provided: Yes Advance Directives on File: No Poor oral hygiene: No service: No Current occupational status: disabled Cognitive needs: Yes (walk, wheelchair (w/c weighs 360lbs)) Hearing needs: No Vision needs: Yes (glasses) Meds Allergies Allergy/AdvReac Type Severity Reaction Status Date / Time NSAIDS (Non-Steroidal Allergy Unknown Unknown Verified 03/02/25 22:38 Anti-Inflamma sulfamethoxazole (From AdvReac Intermediate Elevated Verified 03/02/25 22:38 Bactrim) renal functions trimethoprim (From Bactrim) AdvReac Intermediate Elevated Verified 03/02/25 22:38 renal functions Home Medications ?Medication ?Instructions ?Recorded ?Confirmed ?Last Taken ?Type lisinopril 20 mg tablet 1 tab PO DAILY 12/23/20 03/17/25 03/24/25 History famotidine 20 mg tablet 20 mg PO BEDTIME 03/17/25 03/17/25 03/23/25 History insulin lispro 200 unit/mL (3 mL) 38 unit subcut .ac dinner PRN 03/17/25 03/17/25 03/22/25 History subcutaneous pen (Humalog KwikPen Hyperglycemia U-200 Insulin) Exam Exam Date and Time: 03/24/25 0700 Height,Weight and Vital Signs: Height 5 ft 9 in Weight 134.717 kg Vital Signs Temperature 97.9 F 03/24/25 06:30 Pulse Rate 79 03/24/25 06:30 Respiratory Rate 18 03/24/25 06:30 Blood Pressure 111/60 03/24/25 06:30 Pulse Oximetry 98 03/24/25 06:30 Oxygen Delivery Method Room Air 03/24/25 06:30 Temperature 97.9 F 03/24/25 06:30 Pulse Rate 79 03/24/25 06:30 Respiratory Rate 18 03/24/25 06:30 Blood Pressure 111/60 03/24/25 06:30 Pulse Oximetry 98 03/24/25 06:30 Oxygen Delivery Method Room Air 03/24/25 06:30 Airway Mallampati Class: III TM Dist: <=3cm Neck ROM: Full Loose/Missing/Broken Teeth: No (patient denies any loose or broken teeth) Heart: S1S2 Lungs: CTAB Assessment and Plan Assessment Anesthesia Assessment: Anesthesia Plan Discussed and Chart Reviewed Final Anesthetic Review Family History of Problems with Anesthesia: No History of Problems with Anesthesia: No NPO: Yes ASA Class: III Final Preanesthetic Review: No Changes in Pt Med Stat, Meds/Allgs Chart Reviewed, Consent Obtained/Reviewed and Anes Risks/Benef Reviewed Patient Risk: Intermediate Procedure Risk: Intermediate Anesthetic Plan Anesthetic Plan: GA and Agree w/ Assess. and Plan Disposition: Standard PACU
--- NOTE | 2025-03-24 07:39 | MHC.SHP ---
Pre-Procedural Eval Section A - 24 Hr Update-Section A only Date of Service: 03/24/25 The patient is an INPATIENT: Yes The patient has been examined within 24 hours of the surgical procedure. The History & Physical has been completed within 30 days and I have reviewed it.: Yes Section B - Complete if H&P > 30 days Chief Complaint: Morbid Obesity Relevant Family History (Specify if Yes): No Relevant Social History: None Present Medications: None Medical History: No relevant PMH History of Previous Operations: No relevant previous surgery Allergies: Allergies Allergy/AdvReac Type Severity Reaction Status Date / Time NSAIDS (Non-Steroidal Allergy Unknown Unknown Verified 03/02/25 22:38 Anti-Inflamma sulfamethoxazole (From AdvReac Intermediate Elevated Verified 03/02/25 22:38 Bactrim) renal functions trimethoprim (From Bactrim) AdvReac Intermediate Elevated Verified 03/02/25 22:38 renal functions Review of Systems Sugical H&P ROS: Negative: Constitution, Cardiovascular, Respiratory, Neurological, Psychiatric, Hem-Onc, Allergic/Immunologic, Gastrointestinal, Genitourinary, Musculoskeletal, Integumentary, Endocrine and Eyes/Ears/Nose/Throat Exam Surgical H&P Exam: Normal: HEENT, Normal: Heart, Normal: Lungs, Normal: Extremities, Normal: Abdomen, Normal: Skin and Normal: Neurological Plan Diagnosis/Plan: Unchanged I have reviewed the history and physical and performed a pertinent physical examination on my patient. No changes have occurred unless specified. Time Spent With Patient Time: Total time managing care of this patient today ____ minutes.
--- NOTE | 2025-03-24 07:40 | P.BOP_ITS ---
Brief Operative Note Date of Service: 03/24/25 Pre-op diagnosis: Morbid obesity with comorbidities (see below) Post-op diagnosis: same (Food contents in stomach) Procedure: INITIAL PATIENT BMI ON PRESENTATION AT OUR OFFICE: 48.3 kg/m2 LAST BMI BEFORE SURGERY: 43.6 kg/m2 COMORBIDITIES: Insulin dependent diabetes, hypertension, sleep apnea on CPAP, GERD, hyperlipidemia, DJD, depression, anxiety, insomnia, liver steatosis, liver fibrosis ?The patient presented to the Weight Management Program with significant obesity that was negatively impacting the patient's comorbidities as listed above.? The program is a phased program with a special focus on preoperative medical weight management to promote substantial weight loss and prepare the patients for the second phase of the program: bariatric surgery. The patient participated in an intensive weekly lifestyle ?intervention and exercise program during which the patient ?has lost between the initial office visit and the last preoperative visit 60 lbs, or 16.9% of initial actual body weight. It was deemed appropriate for the patient to now have bariatric surgery. In light of the current Covid-19 pandemic and the well documented strong association of obesity and increased risk of worse outcomes if infected with Covid-19 (REFERENCES: https://pubmed.ncbi.nlm.nih.gov/58716662/ ,? https://pubmed.ncbi.nlm.nih.gov/11959187/ ), any delay in undergoing bariatric surgery may lead to the patient's worsening health condition and increased?risk of more severe Covid-19 disease if infected. In addition a recent?study from [facility] published in ANI Surgery on 08/01/2021 ([email or web address]) found that, among patients with obesity, substantial weight loss achieved with surgery was associated with improved outcomes of COVID-19 infection. The findings suggest that obesity can be a modifiable risk factor for the severity of COVID-19 infection. In addition, the patient met the BMI-criteria for bariatric surgery based on the BMI on initial presentation. The patient should not be penalized for achieving such weight loss because ?it is not sustainable long-term without surgical intervention and it was achieved in preparation for bariatric surgery ?under my direction and based on my published research ([email or web address] and? https://www.soard.org/article/Q9281-1321(71)82003-X/pdf ) ?that a 10% preoperative weight loss improves long-term weight loss after surgery and reduces perioperative complications.? Insurance carriers such as [facility] have endorsed my recommendations ?and have included in their policies criteria to include a 10% preoperative weight loss requirement. PROCEDURE: Esophago-gastroscopy INDICATIONS: This is a 39 year-old male who was electively scheduled for laparoscopic, possibly open sleeve gastrectomy. The risks and complications of the procedure were discussed with the patient in advance, particularly the possibility of ; pulmonary embolism; staple line leak; bleeding; GERD; cardiac, pulmonary, or renal complications; as well as long-term problems such as insufficient weight loss, vitamin deficiency, strictures, or ulcers. The patient understood all the risks, and was in agreement to proceed with surgery. DESCRIPTION OF PROCEDURE: After informed consent was obtained from the patient, the patient was given preoperative antibiotics, and was transferred to the operating room. After successful induction of general anesthesia, pneumatic compression devices were placed on both lower extremities. An upper endoscopy was performed next. The oropharynx and upper esophagus appeared to be within normal limits. There was a large amount of brown material in the lower esophagus and within the stomach suggestive of recent food ingestion. Patient was supposed to be on liquid diet for the last few weeks. The patient was placed in a reverse Trendelenburg position. The stomach was entered which also revealed a large amount of food contents. At that point the scope was withdrawn and the procedure will be aborted. Andrés Hays MD, PhD, FACS Surgeon: Neri Hays MD Anesthesia: GETA Was an Agricultural Consultant used for this Procedure?: No Estimated blood loss (mL): 10 IV fluids (mL): 1,000 Urine output (mL): 0 (No [place] to record output) Pathology: none sent Condition: stable Disposition: PACU
--- NOTE | 2025-03-24 07:44 | PM.PNGS ---
Subjective Subjective Date of Service: 03/24/25 Interval history: Feels well. Mild incisional pain. He is tolerating phase 1 bariatric diet Physical Exam Vital Signs: Vital Signs: Last Vital Signs Temp 97.9 F 03/24/25 06:30 Pulse 79 03/24/25 06:30 Resp 18 03/24/25 06:30 BP 111/60 03/24/25 06:30 Pulse Ox 98 03/24/25 06:30 O2 Del Method Room Air 03/24/25 06:30 BMI result Body Mass Index 43.3 GI: Inspection: Yes normal to inspection, Yes incision (clean, dry and intact) and Yes obesity Palpation (GI): Soft to palpation Extrem: Right lower extremity: normal to inspection (amputation) Left lower extremity: normal to inspection (no calf tenderness) Objective Data Active Medications Haloperidol Lactate (Haloperidol Lactate 5 Mg/Ml Vial) 1 mg IVPUSH ONCE PRN PRN Reason: intractable nausea Stop: 03/24/25 13:21 Hydromorphone HCl (Hydromorphone Hcl 0.5 Mg/0.5 Ml Syringe) 0.5 mg IVPUSH Q5M PRN PRN Reason: Pain, Moderate to Severe (Pain Scale 4-10) Stop: 03/24/25 13:21 Lactated Ringer's (Lr) 1,000 mls @ 100 mls/hr IVCONT .Q10H TIMMY Stop: 03/24/25 10:29 Lactated Ringer's (Lr) 1,000 mls @ 999 mls/hr IV .Q1H1M TIMMY Stop: 03/24/25 08:30 Naloxone HCl (Naloxone Hcl 0.4 Mg/Ml Vial) 0.04 mg IVPUSH Q5M PRN PRN Reason: Excessive sedation or RR < 8 Procedures Date of Service Date of Service: 03/24/25 Progress Note: A&P Assessment and plan (1) Morbidly obese: Status: Acute Assessment and Plan: s/p laparoscopic sleeve gastrectomy, lysis of adhesions, diaphragmatic hernia repair and gastropexy Doing well Will check am labs and if OK the patient will be discharged home (2) HTN (hypertension): Status: Acute (3) HLD (hyperlipidemia): Status: Acute (4) GERD (gastroesophageal reflux disease): Status: Acute (5) Fatty liver disease, nonalcoholic: Status: Acute (6) PAD (peripheral artery disease): Status: Acute (7) Sleep apnea treated with continuous positive airway pressure (CPAP): Status: Acute (8) DJD (degenerative joint disease): Status: Acute (9) Depression: Status: Acute (10) Anxiety: Status: Acute (11) Insomnia: Status: Acute Time Spent With Patient Time: Total time managing care of this patient today ____ minutes. Quality Stroke Does the patient have a stroke diagnosis?: Yes VTE VTE Risk Level:: Surgical - moderate VTE Device Contraindication: N/A - Device Ordered VTE Drug Contraindication: Treatment Not Indicated
[2025-03-24] MEDS: Lactated Ringers 1,000 ML 999 ML IV (08:03)
[2025-03-24] MEDS: Aprepitant 32 MG/4.4 ML VIAL IVPUSH (08:03)
--- NOTE | 2025-03-24 08:49 | P.DS_ITS ---
DS: Providers Provider Date of Service: 03/24/25 Date of admission: 03/24/25 06:27 Date of discharge: 03/24/25 Primary care physician: Clay Guevara PA-C DS: Diagnosis Discharge Diagnosis (1) Morbidly obese: Status: Acute (2) HTN (hypertension): Status: Acute (3) HLD (hyperlipidemia): Status: Acute (4) GERD (gastroesophageal reflux disease): Status: Acute (5) Fatty liver disease, nonalcoholic: Status: Acute (6) PAD (peripheral artery disease): Status: Acute (7) Sleep apnea treated with continuous positive airway pressure (CPAP): Status: Acute (8) DJD (degenerative joint disease): Status: Acute (9) Depression: Status: Acute (10) Anxiety: Status: Acute (11) Insomnia: Status: Acute DS: Summary Hospital Course Hospital Course: ADMITTING DIAGNOSIS: morbid obesity, HTN, DJD, NOLAN on CPAP, anxiety, insomnia, fatty liver, lymphedema, PAD, CKD, T2DM, right leg amputee, GERD, CVA, HLD DISCHARGE DIAGNOSIS: same, s/p upper endoscopy with aborted sleeve gastrectomy PAST SURGICAL HISTORY:? Hx of eye surgery History of amputation of right foot PROCEDURE: upper endoscopy DISCHARGE SUMMARY: History of Present Illness: The patient is a?39 year-old man with a BMI of 43.3 kg/m2 and associated co-morbidities as described above. The patient had extensive work-up, lost?34.6 lbs preoperatively and was electively scheduled for laparoscopic, possible open sleeve gastrectomy and gastropexy. Risks and complications of the surgery were discussed with the patient in advance, particularly the possibility of , pulmonary embolism, anastomotic leak, bleeding, bowel injury, GERD, cardiac, renal or pulmonary complications. The patient understood all the risks and was in agreement with the surgical plan. Hospital Course: Upper endoscopy was performed after induction of general anesthesia and food c ontents were found in the stomach. Decision was made to abort the planned sleeve gastrectomy. Postprocedure, the patient was transferred to the PACU and recovered uneventfully prior to discharge to home. Time Attestation Discharge Coordination Time (in mins): 30 Quality: Safe Use of Opioids Does Pt have an Active Cancer Diagnosis on the Problem List?: No Quality: Stroke Does the patient have a stroke diagnosis?: No Physical Exam Vital Signs: Vital Signs: Last Vital Signs Temp 97.2 F 03/24/25 08:43 Pulse 79 03/24/25 08:43 Resp 18 03/24/25 06:30 BP 133/72 03/24/25 08:43 Pulse Ox 95 03/24/25 08:43 O2 Del Method Nasal Cannula 03/24/25 08:43 O2 Flow Rate 2 03/24/25 08:43 BMI result Body Mass Index 43.3 Discharge Plan Discharge Anticipated Discharge Date/Time: 03/24/25 08:42 Patient Disposition: Home, Self-Care Discharge Diagnosis: Food contents in stomach and esophagus Referrals: Clay Guevara PA-C [Primary Care Provider, Internal Medicine] - 1 Week Discharge Medications: Continued (DME) blood pressure kit-extra large Kit See Rx Instructions .ROUTE .MEDSUPPLY Qty: 1 0RF Rx Instructions: As directed (DME) incontinence pad, liner, disp Pad See Rx Instructions .ROUTE .MEDSUPPLY Qty: 18 0RF Rx Instructions: As directed (DME) FreeStyle Lite Strips Strip See Rx Instructions .Route Qty: 100 3RF Rx Instructions: As directed (DME) latex gloves [Latex Gloves, Large] Misc See Rx Instructions .ROUTE .MEDSUPPLY Qty: 1000 3RF Rx Instructions: As directed miscellaneous medical supply Misc 1 ea miscellaneous DAILY 90 Days Qty: 1000 3RF ferrous sulfate 325 mg (65 mg iron) tablet 325 mg PO DAILY Qty: 30 6RF (DME) Dexcom G7 Sensor Device See Rx Instructions .Route Qty: 3 5RF Rx Instructions: As directed change every 10 days spironolactone 25 mg tablet 25 mg PO DAILY 90 Days Qty: 90 2RF (DME) Wheel chair Kit See Rx Instructions .Route Qty: 1 0RF Rx Instructions: LIFETIME USE (DME) manual wheel chair 20 inch See Rx Instructions .Route .MEDSUPPLY Qty: 1 0RF Rx Instructions: As directed with adjustable leg rests (DME) pen needle, diabetic 31 gauge x 5/16 needle See Rx Instructions .ROUTE BID Qty: 1200 3RF Rx Instructions: As directed aspirin [Adult Aspirin Regimen] 81 mg tablet,delayed release (DR/EC) 81 mg PO DAILY 90 Days Qty: 90 3RF nifedipine 90 mg tablet extended release 24hr 90 mg PO DAILY 90 Days Qty: 90 3RF (DME) FreeStyle Lite Strips Strip See Rx Instructions .ROUTE .COMPLEX Qty: 100 11RF Dose Instruction: USE TO TEST FINGER STICK BLOOD SUGAR 4 (FOUR) TIMES DAILY Rx Instructions: USE TO TEST FINGER STICK BLOOD SUGAR 4 (FOUR) TIMES DAILY (DME) Power wheel chair See Rx Instructions .Route .MEDSUPPLY Qty: 1 0RF Rx Instructions: As directed (DME) lancets 28 gauge misc See Rx Instructions topical QID Qty: 100 4RF Rx Instructions: As directed (DME) Walker repair See Rx Instructions .Route .MEDSUPPLY Qty: 1 0RF Rx Instructions: As directed (DME) Ultra-Light Rollator Misc See Rx Instructions .Route Qty: 1 0RF Rx Instructions: As directed carvedilol 25 mg tablet 25 mg PO BID Qty: 180 2RF gabapentin 800 mg tablet 800 mg PO TID 30 Days Qty: 90 6RF alcohol swabs Pads, Medicated 1 pad topical QID Qty: 200 11RF acetaminophen 650 mg tablet extended release 1,300 mg PO Q8H PRN (Reason: pain) 90 Days Qty: 180 3RF tramadol 50 mg tablet 50 mg PO TID PRN (Reason: pain) 30 Days Qty: 90 3RF hydralazine 100 mg tablet 100 mg PO BID Qty: 60 6RF cholecalciferol (vitamin D3) [Vitamin D3] 25 mcg (1,000 unit) tablet 25 mcg PO DAILY Qty: 30 11RF atorvastatin 80 mg tablet 80 mg PO BEDTIME 30 Days Qty: 30 11RF melatonin 10 mg tablet 10 mg PO DAILY Qty: 30 2RF (DME) lancets [Easy Touch Lancets] 28 gauge misc See Rx Instructions .Route Qty: 100 4RF Rx Instructions: As directed 3 times daily Zepbound 15 mg/0.5 mL pen injector 15 mg subcut QWEEK Qty: 2 2RF lisinopril 20 mg tablet 1 tab PO DAILY Humalog KwikPen Insulin 200 unit/mL (3 mL) insulin pen 38 unit subcut .ac dinner PRN (Reason: Hyperglycemia) famotidine 20 mg tablet 20 mg PO BEDTIME (DME) BARIATRIC WALKER See Rx Instructions .Route .MEDSUPPLY Qty: 1 0RF Rx Instructions: As directed (DME) blood pressure monitor Kit See Rx Instructions .Route Qty: 1 0RF Rx Instructions: As directed omeprazole 20 mg capsule,delayed release(DR/EC) 20 mg PO DAILY 90 Days Qty: 90 1RF insulin degludec [Tresiba FlexTouch U-200] 200 unit/mL (3 mL) insulin pen 70 unit subcut BEDTIME 30 Days Qty: 12 5RF glucose [Dex4 Glucose Quick Dissolve] 4 gram tablet,chewable 16 g PO Q15M PRN (Reason: hypoglycemia) Qty: 30 3RF Rx Instructions: until symptoms of low blood sugar are controlled sucralfate 100 mg/mL suspension 10 ml PO BID Qty: 600 2RF furosemide 20 mg tablet 40 mg PO DAILY 30 Days Qty: 60 0RF (DME) Replacement prosthesis for right lower extremity See Rx Instructions .Route .MEDSUPPLY Qty: 1 0RF Rx Instructions: As directed Descovy 200-25 mg tablet 1 tab PO DAILY 30 Days Qty: 30 1RF Discontinued pantoprazole 40 mg tablet,delayed release (DR/EC) 40 mg PO DAILY Qty: 90 0RF polyethylene glycol 3350 17 gram/dose powder 17 g PO DAILY Qty: 238 0RF Rx Instructions: Mix each measuring cup with 8oz of water, Crystal light, or Gatorade zero, or Propel and do 7 measuring cups on 02/08/25 and another 7 measuring cups on 02/09/25 ondansetron 4 mg tablet,disintegrating 4 mg PO Q12H Qty: 20 0RF Rx Instructions: Only take one every 12 hours as needed if you have nausea Discharge Orders: Discharge Order (Routine); Ordered 03/24/25 Ordered By: Neri Hays Diet: Advance to usual diet Activity on Discharge: As tolerated Stand Alone Forms: Patient Portal Discharge page Print Language: Albanian Care Plan Goals: weight loss Health Concerns: morbid obesity Plan of Treatment: Discharge Instructions Please call your doctor or come back to the emergency room should any new symptoms arise. Call your doctor if: - Your temperature exceeds 101.5 F - You experience excessive pain or swelling - You have an unexpected reaction to medication - You have excessive bleeding - You experience continued vomiting/nausea General instructions: No driving within 24 hours of taking narcotic pain medications. If you do not move your bowels in the next 2 days, please take milk of magnesia over the counter. You may shower. Please make sure you are consuming 40-60 ounces of total fluids per day. Please call the office with any questions or concerns such as increasing abdominal pain, fever, chills, shortness of breath, chest pain, leg pain or swelling, or redness or drainage from your incisions. Do not hesitate to contact the office with any questions at . The patient's medical history has been reviewed and they are considered low risk for post op DVT and therefore DVT prophylaxis is not considered necessary. Travel after surgery was reviewed. The patient has not disclosed any travel plans during the first 30 days after surgery and they have been advised that within the first 30 days after surgery any bus, plane, train or car travel over 2 hours in duration is contraindicated due to the possibility of developing blood clots from immobility. Any travel, needs to include periods of ambulation of 10 minutes in duration every 2 hours.? The patient was instructed to discuss any plans for travel during this period with their bariatric surgeon. Assessment: s/p upper endoscopy
--- OUTSIDE RECORDS SUMMARY | 2025-03-24 17:40 | XMS_ITS | Encounter Summary ---
Author Organization [facility] Address [address] [place] [address] Phone Care Team Providers Care Appellate Conferee Name Role Phone Clay Guevara Primary Care Provider Reason for Visit * Reason Comments Med Refill Encounter Details Date Type Department Care Team (Late st Contact Info) Description 11/19/2023 Refill [facility] [address] [place] [address] Lucio Hancock MD [address] [facility] [place] [address] Social History Tobacco Use Types [...] Office Visit [facility] [address] [place] [address] Lucio Hancock MD [address] [facility] [place] [address] documented as of this encounter Visit Diagnoses Not on filedocumented in this encounter Care Teams Appellate Conferee Relationship Specialty Start Date End Date Clay Guevara PA [address] [place] [address], [address] [place] [address] PCP - General Physician Granite Cutter 06/23/20 documented as of this encounter
== END 2025-03-24 06:28 | disposition home or self-care (01) ==
LOC: HO.SSSA 08:43 → HO.SSS 03-26 08:19
PROVIDERS: PCP Physician Assistant; Visit Provider Surgery
PROC: (CPT 43845; principal; 2025-03-24 07:30)
DX: E66.01 Morbid (severe) obesity due to excess calories (principal); Z68.41 Body mass index [BMI] 40.0-44.9, adult; T18.2XXA Foreign body in stomach, initial encounter; W44.F3XA Food entering into or through a natural orifice, initial encounter; I10 Essential (primary) hypertension; K21.9 Gastro-esophageal reflux disease without esophagitis; K76.0 Fatty (change of) liver, not elsewhere classified; K74.00 Hepatic fibrosis, unspecified; E78.5 Hyperlipidemia, unspecified; I73.9 Peripheral vascular disease, unspecified; G47.33 Obstructive sleep apnea (adult) (pediatric); G47.00 Insomnia, unspecified; E11.9 Type 2 diabetes mellitus without complications; F32.9 Major depressive disorder, single episode, unspecified; F41.9 Anxiety disorder, unspecified; M19.90 Unspecified osteoarthritis, unspecified site; Z89.431 Acquired absence of right foot; H54.62 Unqualified visual loss, left eye, normal vision right eye; Z86.73 Personal history of transient ischemic attack (TIA), and cerebral infarction without residual deficits; Z79.82 Long term (current) use of aspirin; Z79.4 Long term (current) use of insulin; Z79.85 Long-term (current) use of injectable non-insulin antidiabetic drugs; Z99.89 Dependence on other enabling machines and devices; Z79.899 Other long term (current) drug therapy; Z88.2 Allergy status to sulfonamides; Z88.6 Allergy status to analgesic agent; Z91.040 Latex allergy status; Z98.890 Other specified postprocedural states
CPT/HCPCS: 43775; 86850; 86900; 86901; A4649; C9145; J0131; J0690; J1100; J2003; J2250; J2405; J2704; J2795; J3010

== ENCOUNTER → 2025-03-24 06:27 | Outpatient (BNV) | payer OTHER, SELFPAY | PROVIDERS: Admitting Provider Surgery; PCP Physician Assistant; Visit Provider Surgery | DX: E66.01 Morbid (severe) obesity due to excess calories (principal); Z68.41 Body mass index [BMI] 40.0-44.9, adult; Z91.199 Patient's noncompliance with other medical treatment and regimen due to unspecified reason | CPT/HCPCS: 43235; 99499 ==

== ENCOUNTER 2025-04-09 12:55 | Outpatient (AMB) | payer OTHER, SELFPAY ==
[2025-04-09 12:56] VITALS: BP 142/80; PULSE 102; TEMP 36.6; O2SAT 98
--- NOTE | 2025-04-09 12:56 | MHC.OFFWIV ---
Intake Vital Signs 04/09/25 12:56 Height 5 ft 9 in BMI Reason not done Patient refused/unable BP 142/80 H Blood Pressure Location Lt brachial Position Sitting Pulse 102 H Pulse Source Pulse Oximeter Temp 97.8 F Temp Source Oral Pulse Oximetry (%) 98 Oxygen Delivery Method Room Air Intake Visit Reasons: EP-body ache, sore throat, sinus issues Patient Tobacco Use Status: Never used Tobacco Allergies NSAIDS (Non-Steroidal Anti-Inflamma Allergy (Unknown, Verified 04/09/25 12:56) Unknown sulfamethoxazole (From Bactrim) Adverse Reaction (Intermediate, Verified 04/09/25 12:56) Elevated renal functions trimethoprim (From Bactrim) Adverse Reaction (Intermediate, Verified 04/09/25 12:56) Elevated renal functions Do you need a note to return to daycare/school/sports/work: No HPI HPI Comments History of Present Illness Details 39 y/o Male patient who presents to the walk in clinic with c/o URI symptoms for more than 1 week. Pt c/o Sore-throat, Body aches, and Sinus congestion. Denies fevers, but reports Body chills. Denies nausea or vomiting. About 2 weeks ago Pt was under general Ansthesia for Weight loss surgery, which was eventually cancelled. He had ET placed which caused Throat irritation. [facility] Medical History (Updated 04/09/25 @ 13:38 by Freda Sahni NP) Acute respiratory disease Depression Insomnia Anxiety DJD (degenerative joint disease) Sleep apnea treated with continuous positive airway pressure (CPAP) Arthritis PAD (peripheral artery disease) CKD (chronic kidney disease) Exposure to bloodborne pathogen Abnormal stress test History of stroke Morbid obesity NOLAN (obstructive sleep apnea) HTN (hypertension) Right below-knee amputee Blind left eye Neuropathy CVA (cerebral vascular accident) (~2019) Sleep apnea Obesity Vitamin D deficiency HLD (hyperlipidemia) GERD (gastroesophageal reflux disease) Below knee amputation Type 2 diabetes mellitus Surgical History (Updated 03/17/25 @ 10:07 by Ciara Fisher RN) History of esophagogastroduodenoscopy (EGD) (10/15/24) Hx of eye surgery History of amputation of right foot Family History Mother Diabetes Father Prostate cancer Paternal Aunt Diabetes Brother No problems noted. Brother No problems noted. Brother No problems noted. Brother No problems noted. Brother No problems noted. Sister No problems noted. Social History (Updated 03/17/25 @ 10:08 by Ciara Fisher RN) Household Members: None Housing: Apartment Are you a primary animal care assistant to a significant other at home: No Do you presently have visiting nurse or other home services: Yes (PUTTY AND CAULKING SUPERVISOR daily) 75 years or older and lives alone: No Alcohol intake: never Patient Tobacco Use Status: Never used Tobacco e-Cigarette/Vaping Use: Never Used Second Hand Smoke Exposure: No service: No Current occupational status: disabled Cognitive needs: Yes (walk, wheelchair (w/c weighs 360lbs)) Hearing needs: No Vision needs: Yes (glasses) Review of Systems Const All systems reviewed & are unremarkable except as noted in HPI and below Physical Exam Vital Signs: Last Vital Signs Temp 97.8 F 04/09/25 12:56 Pulse 102 H 04/09/25 12:56 BP 142/80 H 04/09/25 12:56 Pulse Ox 98 04/09/25 12:56 Oxygen Delivery Method Room Air 04/09/25 12:56 Const General: no acute distress Nutritional Appearance: obese morbidly obese Orientation/consciousness: patient oriented x3 HEENT Head: Yes normocephalic Ears: external ears normal and TM's normal bilaterally General nose exam: Nasal discharge present Face and sinus: Yes sinuses nontender Mouth: moist mucous membranes Throat: Yes uvula midline Resp Effort & Inspection: normal respiratory effort and able to speak in complete sentences Auscultation: clear to auscultation bilaterally, no crackles, no rales, no rhonchi and no wheezes Cardio Heart sounds: S1 normal heart sound present and S2 normal heart sound present Neuro General: patient oriented x3 Results AMB Rapid Strep AMB Rapid Strep Negative Last Edit by Live Kaufman CMA on 04/09/25 13:11 Results Reviewed Results Reviewed: Laboratory Last Values Strep Scn Rapid Clinic Negative 04/09/25 13:10 Assessment & Plan Assessment & Plan (1) Acute respiratory disease: Code(s): J06.9 - Acute upper respiratory infection, unspecified Plan: Ordered SARs Rapid Strep Negative Probably Viral vs Bacterial. Acetaminophen and NSAIDs for pain relief. Rest and hydrate well. OTC sore-throat remedies. Orders: Orders AMB Rapid Strep Screen Today Sushma Nunez PA-C Z13.9 - Encounter for screening, unspecified SARS-CoV2/FLU/RSV Today Freda Sahni NP J06.9 - Acute upper respiratory infection, unspecified Coding Level of Care Code Est Pt Level 4 (34034) Diagnoses Acute respiratory disease J06.9 Time Spent (min) 20
--- OUTSIDE RECORDS SUMMARY | 2025-04-09 14:13 | XMS_ITS | Encounter Summary ---
Author Organization [facility] Address [address] [place] [address] Phone Care Team Providers Care Vehicle Operator Name Role Phone Clay Guevara Primary Care Provider [phone] Reason for Visit * Reason Comments Med Refill Encounter Details Date Type Department Care Team (Late st Contact Info) Description 12/15/2023 [facility]ill [facility] [address] [place] [address] Lucio Hancock MD [address] [facility] [place] [address] Social History Tobacco Use Types [...] Care Team (Late st Contact Info) Description 05/13/2025 4:30 PM EDT Office Visit [facility] [address] [place] [address] Lucio H[place] MD [address] [facility] [place] [address] documented as of this encounter Visit Diagnoses Not on filedocumented in this encounter Care Teams Vehicle Operator Relationship Specialty Start Date End Date Clay Guevara PA [address] [place] [address], [address] [place] [address] PCP - General Physician Crabbing Machine Operator 06/23/20 documented as of this encounter
--- OUTSIDE RECORDS SUMMARY | 2025-04-09 14:13 | XMS_ITS | Encounter Summary ---
Author Organization [facility] [place], Address [address] [place] [address] Phone Care Team Providers Care Outsole Cementer Name Role Phone Clay Guevara Primary Care Provider [phone] Reason for Visit * Reason Onset Date Comments [facility] visit 08/14/2019 CKDIII/HTN Encounter Details Date Type Department Care Team (Late st Contact Info) Description 08/14/2019 Documentation Only [facility] [address] [place] [phone] Connie Stafford PA Social History Tobacco Use [...] Visit [facility] [place], [address] [place] [id number] Lucio [place] MD [address] [facility] [place] [phone] documented as of this encounter Visit Diagnoses Not on filedocumented in this encounter Care Teams Outsole Cementer Relationship Specialty Start Date End Date Clay Guevara PA [address] [place] [address], [address] [place] [address] PCP - General Physician Professor Of Fine Art 06/23/20 documented as of this encounter
--- OUTSIDE RECORDS SUMMARY | 2025-04-09 14:13 | XMS_ITS | Clinical Summary ---
Author Organization [facility] [place], Address [address] [place] [address] Phone Care Team Providers Care Gunnery/Ordnance Officer Name Role Phone Clay Guevara Primary Care Provider [phone] Allergies Active Allergy Reactions Criticality Noted Date [...] (ONE) TIME EACH DAY 30 tablet 2 07/22/20 20 Active furosemide (LASIX) 40 MG tablet Take 40 mg by mouth 1 (one) time each day 08/17/19 21 Active carvedilol (COREG) 25 MG tablet Take 25 mg by mouth in the morning and 25 mg in the evening. Take with meals. 09/01/19 Active traMADol (ULTRAM) 50 MG tablet 50 MG BY MOUTH TWICE A DAY FOR PAIN 08/26/19 Active [facility] Melatonin 10 MG capsule Take 1 tablet by mouth 1 (one) time each day 08/15/19 21 Active Lancets (freestyle) lancets USE TO PRICK FINGERTIPS FOR BLOOD GLUCOSE TESTING UP TO 4 TIMES A DAY, E11.65 07/26/20 Active HumuLIN R U-500 KWIKPEN 500 UNIT/ML CONCENTRATED injection 100 units with breakfast, 80 units with lunch and 100 units with dinner. 08/23/19 Active B-D ULTRAFINE III SHORT PEN 31G X 8 MM misc USE TO INJECT HUMULIN 2 TIMES DAILY 07/26/20 Active FREESTYLE LITE test strip 08/30/19 Active gabapentin (NEURONTIN) 600 MG tablet Take 600 mg by mouth twice a day 08/16/19 Active dorzolamide-siria olol (COSOPT) 22.3-6.8 MG/ML ophthalmic solution INSTILL 1 DROP INTO RIGHT EYE TWICE A DAY 08/03/20 Active spironolactone (ALDACTONE) 25 MG tablet Take 25 mg by mouth 1 (one) time each day 10/09/19 21 Active atorvastatin (LIPITOR) 80 MG tablet Take 40 mg by mouth every night Active insulin regular (HumuLIN R) 500 UNIT/ML patient supplied pump Inject 300 Units under the skin in the morning. Active thiamine (,VITAMIN B-1,) 100 MG tablet Take 100 mg by mouth 1 (one) time each day 08/22/19 22 Active DULoxetine (CYMBALTA) [address] capsule TAKE ONE CAPSULE BY MOUTH two (2) times a day 08/22/19 22 Active famotidine (PEPCID) 20 MG tablet TAKE ONE TABLET BY MOUTH DAILY. use as alternative to second dose of protonix 08/25/19 22 Active lisinopril 20 MG tablet TAKE 1 TABLET BY MOUTH ONCE DAILY 90 tablet 3 03/12/20 25 Active lisinopril 20 MG tablet Take 1 tablet (20 mg total) by mouth 1 (one) time each day 90 tablet 3 02/04/20 24 025 Discontinued Active Problems Problem Noted Date Diagnosed Date [...] Hyperkalemia 11/04/2020 Edema 11/04/2020 Diastolic dysfunction 2020 Encounters Date Type Department Care Team Description 03/11/2025 Refill [facility] [address] [place] [address] Lucio Hancock MD 01/12/2025 Orders Only [facility] [address] [place] [address] Susanne Durán [place] Stage 3a chronic kidney disease (HCC) (Primary Dx); Proteinuria, not otherwise specified from Last 3 Months Family History Medical History Relation Comments Prostate [...] Visit [facility] [place], [address] [place] [address] Lucio H[place] MD [address] [facility] [place] [address] Health Maintenance Due Date Last Done [...] Hemoglobin A1C 01/27/2022 10/27/2021 Influenza Vaccine (#1) 2025 Procedures Procedure Name Priority Date/Time Associated Diagnosis Comments HEMOGLOBIN A1C Routine 10/27/2021 3:46 PM EDT Stage 3b chronic kidney disease (HCC) from Last 3 Months or Most Recently Relevant to Health Maintenance Results * (ABNORMAL) Hemoglobin A1c (10/27/2021 3:46 PM EDT) Hemoglobin A1C 7.5(H) (4.0-5.6) % [facility] Comment: MONITORING: In known diabetic patients, hemoglobin A1c targets should be discussed with health care provider. DIAGNOSTIC USE: The [place] Diabetes Association (ADA) and the World Health [...] Supplement 1 Testing performed or reported by [facility], a Service of [facility], [address] [place] [id number] Marco Delgado MD, Legal Transcriptionist [facility]# [id number] Blood specimen (specimen) Venous blood / Unknown 10/27/2021 3:46 PM EDT 10/27/2021 4:03 PM EDT us Connie URIBE LAB BLOOD ORDERABLES Final Res ult [facility] from Last 3 Months or Most Recently Relevant to Health Maintenance Insurance [facility] [employer] Care Teams Gunnery/Ordnance Officer Relationship Specialty Start Date End Date Clay Guevara PA [address] [facility], [address] [place] [address] PCP - General Physician Locker Plant Attendant 06/23/20
--- OUTSIDE RECORDS SUMMARY | 2025-04-09 14:13 | XMS_ITS | Clinical Summary ---
Author Organization [facility] Address [address] [place] [address] Phone Care Team Providers Care Welt Rander Name Role Phone Clay Guevara Primary Care Provider Medical History Medical History Date Comments Other and unspecified hyperlipidemia 04/18/2005 DX:Other and unspecified hyperlipidemia Morbid obesity ([facility] V24, [facility] V28) 04/18/2005 DX:Morbid obesity ([facility]) Type II or unspecified type diabetes mellitus without mention of complication, not stated as uncontrolled 04/18/2005 DX:Type II or unspecified ty pe diabetes mellitus without mention of complication, not stated as uncontrolled Type 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, uncontrolled(250.42) (CMS/HCC V24, [facility] V28) 02/01/2007 DX:Type II or unspecified ty pe diabetes mellitus with renal manifestations, uncontrolled(250.42) ([facility]) Reflux 07/27/07 DX:Reflux Essential hypertension, benign 05/17/07 D X:Essential hypertension, benign Essential hypertension, benign 05/17/07 D X:Essential hypertension, benign Preglaucoma 07/27/07 DX:Preglaucoma Family History Medical History Relation Name Comments Cataracts Maternal Grandmother Blindness Neg Hx Glaucoma Neg Hx Macular degeneration Neg Hx Strabismus Neg Hx Relation Name Status Comments Maternal Grandmother Social History Tobacco Use Types Packs/Day Years Used Date Smoking Tobacco: Never Alcohol Use Standard Drinks/Week Comments No 0 (1 standard drink = 0.6 oz pur e alcohol) Sex and Gender Information Value Date Recorded Sex Assigned at Not on file Legal Sex Male 6:39 AM EST Gender Identity Not on file Sexual Orientation Not on file Obstetrics History Plan of Treatment Upcoming Encounters Date Type Department Care Team (Late st Contact Info) Description 04/15/2025 2:30 PM EDT Office Visit Bariatric Surgery - [address] [place] [address] Makenzie Rodriguez MD [address] [place] [phone] Health Maintenance Due Date Last Done Comments Diabetes: Annual GFR (Glomer ular Filtration Rate) 1984 Diabetes: Annual Foot Exam 1994 Diabetes: Annual Retina Eye Exam 1994 DTaP,Tdap,and Td Vaccines (1 - Tdap) 2003 Hepatitis B Vaccines (1 of 3 - 19+ 3-dose series) 2003 Depression Screening 08/06/2024 Cholesterol Screening (Lipid Panel) 01/06/2025 Diabetes: Annual Urine Albumin-Creatinine Ratio (uACR) 01/06/2025 Diabetes: Blood Sugar Contro l Test (HGBA1C) 01/06/2025 HIV Screening 01/06/2025 Hepatitis C Screening 01/06/2025 Hypertension/CHF/CAD Annual BMP Blood Test 01/06/2025 Social Influencers of Health Screening 01/06/2025 COVID-19 Vaccine ( - 2023-2 5 season) 2025 Influenza Vaccine (#1) 2025 HIB Vaccines Aged Out No longer eligi ble based on patient's age to complete this topic HPV Vaccines Aged Out No longer eligi ble based on patient's age to complete this topic Hepatitis A Vaccines Aged Out No long er eligible based on patient's age to complete this topic IPV Vaccines Aged Out No longer eligi ble based on patient's age to complete this topic MMR Vaccines Aged Out No longer eligi ble based on patient's age to complete this topic Meningococcal ACWY Vaccine Aged Out N o longer eligible based on patient's age to complete this topic Meningococcal B Vaccine Aged Out No l onger eligible based on patient's age to complete this topic Pneumococcal Vaccine: Pediat rics (0 to 5 Years) and At-Risk Patients (6 to 49 Years) Aged Out No longer eligible b ased on patient's age to complete this topic RSV Immunization Patients Un willie 20 months Aged Out No longer eligible b ased on patient's age to complete this topic Varicella Vaccines Aged Out No longer eligible based on patient's age to complete this topic Insurance [facility] [place] [address] Care Teams Welt Rander Relationship Specialty [place] [address] [place] [id number] PCP - General Physician Event Decorator And Designer 01/05/25
--- OUTSIDE RECORDS SUMMARY | 2025-04-09 14:13 | XMS_ITS | Encounter Summary ---
Author Organization [facility] [place] [facility] Address [address] [place] [address] Phone Care Team Providers Care Senior Dot Net Developer Name Role Phone Clay Guevara Primary Care Provider [phone] Reason for Visit * Reason Comments Med Refill Encounter Details Date Type Department Care Team (Late st Contact Info) Description 11/19/2023 [facility]ill [facility] [address] [place] [address] Lucio Hancock MD [address] [facility] [place] [address] Social History Tobacco Use Types [...] Office Visit [facility] [address] [place] [address] Lucio Hancock MD [address] [facility] [place] [address] documented as of this encounter Visit Diagnoses Not on filedocumented in this encounter Care Teams Senior Dot Net Developer Relationship Specialty Start Date End Date Clay Guevara PA [address] [place] [address], [address] [place] [address] PCP - General Physician Farm Implement Mechanic 06/23/20 documented as of this encounter
--- OUTSIDE RECORDS SUMMARY | 2025-04-09 14:13 | XMS_ITS | Encounter Summary ---
Author Organization [facility] [place], Address [address] [place] [address] Phone Care Team Providers Care Supervisor Compressed Yeast Name Role Phone Clay Guevara Primary Care Provider Encounter Details Date Type Department Care Team (Late st Contact Info) Description 04/28/2021 Documentation Only [facility] [address] [facility] [place] [address] Connie Stafford PA Social History Tobacco Use [...] Visit [facility] [address] [place] [address] Lucio Hancock MD [address] [place] [address] [place] [phone] documented as of this encounter Visit Diagnoses Not on filedocumented in this encounter Care Teams Supervisor Compressed Yeast Relationship Specialty Start Date End Date Clay Guevara PA [address] [place] [address], [address] [place] [address] PCP - General Physician Senior Windows Systems Administrator 06/23/20 documented as of this encounter
--- OUTSIDE RECORDS SUMMARY | 2025-04-09 14:13 | XMS_ITS | Encounter Summary ---
Author Organization [facility] Address [address] [place] [address] Phone Care Team Providers Care Federal Appellate Law Clerk Name Role Phone Clay Guevara Primary Care Provider [phone] Encounter Details Date Type Department Care Team (Late st Contact Info) Description 04/16/2024 Documentation Only [facility] [address] [place] [address] Susanne DuránULM, [place] [address] [place] [address] Social History Tobacco Use Types [...] Visit [facility] [address] [place] [address] Lucio Hancock MD [address] [facility] [place] [address] documented as of this encounter Visit Diagnoses Not on filedocumented in this encounter Care Teams Federal Appellate Law Clerk Relationship Specialty Start Date End Date Clay Guevara PA [address] [place] [address], [address] [place] [address] PCP - General Physician Special Procedures Technologist 06/23/20 documented as of this encounter
== END 2025-04-09 13:39 | disposition home or self-care (01) ==
PROVIDERS: PCP Physician Assistant; Visit Provider Nurse Practitioner Family
DX: Z13.9 Encounter for screening, unspecified (principal); J06.9 Acute upper respiratory infection, unspecified

== ENCOUNTER 2025-04-09 12:55 | Outpatient (REF) | payer OTHER, SELFPAY ==
[2025-04-09 17:24] LABS: Resp Syncy Virus RNA Qual PCR NEGATIVE (Negative); SARS COV2 PCR INHOUSE NEGATIVE (Negative)
== END 2025-04-09 12:56 | disposition home or self-care (01) ==
LOC: HO.LAB 12:55
PROVIDERS: PCP Physician Assistant; Visit Provider Nurse Practitioner Family
DX: J06.9 Acute upper respiratory infection, unspecified (principal)
CPT/HCPCS: 87637; 87880; 99212

== ENCOUNTER 2025-04-14 13:45 | Outpatient (AMB) | payer OTHER, SELFPAY ==
--- NOTE | 2025-04-14 13:52 | A.OFFVIS_ITS ---
Vital Signs 04/14/25 13:55 Height 5 ft 9 in BP 130/80 Blood Pressure Location Rt brachial Position Sitting Pulse 106 H Pulse Source Pulse Oximeter Pulse Oximetry (%) 96 Oxygen Delivery Method Room Air Intake Visit Reasons: DM/ Needs room 5 Intake Note: Patient present today to follow up on Type 2 Diabetes Mellitus. Last Diabetic Eye exam: 05/2024 Last Podiatry Visit: Needs a referral Random Glucose: 107 mg/dL Hgb A1C: 6.2% 02/17/2025 Physicist Solid State Required: No Accompanied by: Self / Same As Patient Allergies NSAIDS (Non-Steroidal Anti-Inflamma Allergy (Unknown, Verified 04/14/25 13:54) Unknown sulfamethoxazole (From Bactrim) Adverse Reaction (Intermediate, Verified 04/14/25 13:54) Elevated renal functions trimethoprim (From Bactrim) Adverse Reaction (Intermediate, Verified 04/14/25 13:54) Elevated renal functions Medication List - Last Reconciled 04/14/25 by RONY Moore acetaminophen ER 1,300 mg (2 x 650 mg) PO Q8H PRN 90 days alcohol swabs 1 pad topical QID aspirin (Adult Aspirin Regimen) 81 mg PO DAILY 90 days atorvastatin 80 mg PO BEDTIME 30 days [BARIATRIC WALKER As directed] blood pressure kit-extra large As directed blood pressure monitor As directed blood sugar diagnostic (FreeStyle Lite Strips) As directed blood sugar diagnostic (FreeStyle Lite Strips) USE TO TEST FINGER STICK BLOOD SUGAR 4 (FOUR) TIMES DAILY blood-glucose sensor (Targeted Growth G7 Sensor device) As directed change every 10 days carvedilol 25 mg PO BID chair, wheel (Wheel chair) LIFETIME USE cholecalciferol (vitamin D3) (Vitamin D3) 25 mcg PO DAILY emtricitabine-tenofovir alafen 200-25 mg (Descovy) 1 tab PO DAILY 30 days famotidine 20 mg PO BEDTIME ferrous sulfate 325 mg PO DAILY furosemide 40 mg (2 x 20 mg) PO DAILY 30 days gabapentin 800 mg PO TID 30 days glucose (Dex4 Glucose Quick Dissolve) 16 grams (4 x 4 gram) PO Q15M PRN hydralazine 100 mg PO BID incontinence pad, liner, disp As directed insulin degludec (Tresiba FlexTouch U-200 insulin) 70 units (0.35 mL) subcut BEDTIME 30 days insulin lispro (Humalog KwikPen U-200 Insulin) 38 units subcut .ac dinner PRN lancets As directed lancets (Easy Touch Lancets) As directed 3 times daily lancets (True Comfort Lancet) As directed latex gloves (Latex Gloves, Large) As directed lisinopril 1 tab PO DAILY [manual wheel chair As directed with adjustable leg rests ] melatonin 10 mg PO DAILY miscellaneous medical supply 1 ea miscellaneous DAILY 90 days nifedipine ER 90 mg PO DAILY 90 days omeprazole 20 mg PO BID pen needle, diabetic As directed [Power wheel chair As directed] [Replacement prosthesis for right lower extremity As directed] semaglutide (Ozempic) 0.5 mg (0.736 mL) subcut QWEEK spironolactone 25 mg PO DAILY 90 days sucralfate 10 mL PO BID tramadol 50 mg PO TID PRN 30 days walker (Ultra-Light Rollator misc) As directed [Walker repair As directed] HPI Comments Details: This is a 39-year-old male with a past medical history of type 2 diabetes, fatty liver disease, lymphedema, peripheral arterial disease, CKD stage 3, hyperte nsion, obesity, NOLAN, GERD, CVA, hyperlipidemia and vitamin-D deficiency presenting for diabetic management. He was initially diagnosed with type 2 diabetes at the age of 14. Current medication regimen: Zepbound 15 mg weekly, Tresiba 70 units at bedtime, Humalog 38 units before dinner Past medication: Was initially on metformin and glyburide and began using insulin at age 20. Reviewed CGM G CA 7% 76% of his blood sugars are within target range Very high 3% High 20% 0% hypoglycemia His hemoglobin A1c is 6.2% 02/17/2025. Hypoglycemia: None Hyperglycemia symptoms: None Diabetic complications: Retinopathy, neuropathy, nephropathy (CKD and microalbuminuria), atherosclerotic vascular disease. CAD, CVA, Right BKA 8 years ago. He requests a referral to Podiatry for nail care and neuropathy of the left lower extremity. He reports that he is seeking a 2nd opinion for bariatric surgery at [facility]. He has an appointment scheduled tomorrow. He would like to change Zepbound back to Ozempic. He says he had better weight loss with Ozempic. He denies side effects on it. ROS: Constitutional: No unexplained weight loss, fever, chills, fatigue or night sweats. Respiratory: No shortness of breath Cardiovascular: No chest pain Neurologic: No headache or dizziness Endocrine: No cold or heat intolerance. No polyuria or polydipsia. Physical exam: Constitutional: Alert, in no distress. Neck: Supple, Full range of motion. No lymphadenopathy. No palpable thyroid masses. Respiratory: Clear to auscultation. Cardiovascular: S1 S2 regular. No murmurs Neurologic: No focal neurological deficits. Extremities: Left lower extremity edema, right BKA. Mild onychomycosis of the left toenails. Psychiatric: Normal mood and affect [facility] Medical History (Updated 04/09/25 @ 13:38 by Freda Sahni NP) Acute respiratory disease Depression Insomnia Anxiety DJD (degenerative joint disease) Sleep apnea treated with continuous positive airway pressure (CPAP) Arthritis PAD (peripheral artery disease) CKD (chronic kidney disease) Exposure to bloodborne pathogen Abnormal stress test History of stroke Morbid obesity NOLAN (obstructive sleep apnea) HTN (hypertension) Right below-knee amputee Blind left eye Neuropathy CVA (cerebral vascular accident) (~2019) Sleep apnea Obesity Vitamin D deficiency HLD (hyperlipidemia) GERD (gastroesophageal reflux disease) Below knee amputation Type 2 diabetes mellitus Surgical History (Updated 03/17/25 @ 10:07 by Ciara Fisher RN) History of esophagogastroduodenoscopy (EGD) (10/15/24) Hx of eye surgery History of amputation of right foot Family History Mother Diabetes Father Prostate cancer Paternal Aunt Diabetes Brother No problems noted. Brother No problems noted. Brother No problems noted. Brother No problems noted. Brother No problems noted. Sister No problems noted. Social History (Updated 03/17/25 @ 10:08 by Ciara Fisher RN) Household Members: None Housing: Apartment Are you a primary patient care manager to a significant other at home: No Do you presently have visiting nurse or other home services: Yes (DE ICER INSTALLER daily) 75 years or older and lives alone: No Alcohol intake: never Patient Tobacco Use Status: Never used Tobacco e-Cigarette/Vaping Use: Never Used Second Hand Smoke Exposure: No service: No Current occupational status: disabled Cognitive needs: Yes (walk, wheelchair (w/c weighs 360lbs)) Hearing needs: No Vision needs: Yes (glasses) Physical Exam Vital Signs: Last Vital Signs Pulse 106 H 04/14/25 13:55 BP 130/80 04/14/25 13:55 Pulse Ox 96 04/14/25 13:55 Oxygen Delivery Method Room Air 04/14/25 13:55 Office Procedures Glucose Monitoring Details Details: See [facility] [address] - Glucose monitoring, continuous-physician I&R Procedure code (CPT) selection complete Results Reviewed Results Reviewed: Laboratory Last Values Glucose (Clinic) 107 mg/dL (60-115) 04/14/25 13:56 Laboratory Tests 09/15/20 06/16/24 02/17/25 09:00 12:07 12:22 Plt Count 334 Creatinine 1.50 H Estimated GFR 52 AST 31 ALT 33 Triglycerides 161 H Cholesterol 115 HDL Cholesterol 23 L TSH 1.48 Microalb/Creat Ratio 875.4 H Islet Cell Ab Screen NEGATIVE KAMALA Antibody <5 Assessment & Plan Assessment & Plan (1) Type 2 diabetes mellitus with unspecified complications: Code(s): E11.8 - Type 2 diabetes mellitus with unspecified complications Category: Medical (2) Morbid obesity: Code(s): E66.01 - Morbid (severe) obesity due to excess calories Category: Medical Plan In summary this is a 39-year-old male with longstanding type 2 diabetes that is currently well-controlled on basal bolus insulin and Zepbound, but he is requesting to switch back to Ozempic. He endorses improved appetite control compared to Zepbound. He is undergoing a 2nd opinion for bariatric surgery at [facility]. You will stop Mounjaro and stop Ozempic 0.5 mg 1 week after his last dose. Side effects reviewed. Continue current dosages for basal bolus insulin. Refer to podiatry. Reviewed treatment of hypoglycemia. Sent glucose tablets to his pharmacy. Follow up in 4 weeks for type 2 diabetes med check. Orders: Orders AMB Glucose Monitoring Today E11.9 - Type 2 diabetes mellitus without complications Referrals Podiatry Referral E11.9 - Type 2 diabetes mellitus without complications, Z79.4 - residential (current) use of insulin, Z91.89 - Other specified personal risk factors, not elsewhere classified Medications: New semaglutide (Ozempic) 0.5 mg (0.736 mL) subcut QWEEK 3 mL 0RF Discontinued tirzepatide (weight loss) (Zepbound) Discontinued Reason: Doctor's Order 15 mg (0.5 mL) subcut QWEEK 2 mL 2RF E66.01 - Morbid (severe) obesity due to excess calories Coding Level of Care Code Est Pt Level 4 (09516) Diagnoses Type 2 diabetes mellitus with unspecified complications E11.8 Morbid obesity E66.01 CPT Codes Details - CPT: 26555 - Glucose monitoring, continuous-physician I&R ([id number])
[2025-04-14 13:55] VITALS: BP 130/80; PULSE 106; O2SAT 96
[2025-04-14 14:01] LABS: Glucose, Whole Blood 107 mg/dL (60-115)
--- OUTSIDE RECORDS SUMMARY | 2025-04-14 16:21 | XMS_ITS | Clinical Summary ---
Author Organization [facility] [place], Address [address] [place] [address] Phone Care Team Providers Care Electric Golf Cart Repairer Name Role Phone Clay Guevara Primary Care Provider [phone] Allergies Active Allergy Reactions Criticality Noted Date [...] protonix 2 Active lisinopril 20 MG tablet TAKE 1 TABLET BY MOUTH ONCE DAILY 90 tablet 3 5 Active Active Problems Problem Noted Date Diagnosed [...] Refill [facility] [address] [place] [address] Lucio Hancock MD 01/12/2025 Orders Only [facility] Of [address] [place] [address] Susanne Durán [place] Stage 3a chronic kidney [...] Visit [facility] [place], [address] [place] [address] Lucio Hancock MD [address] [facility] [place] [phone] Health Maintenance Due Date Last Done Comments [...] (ABNORMAL) Hemoglobin A1c (10/27/2021 3:46 PM EDT) Pathologist [facility] Hemoglobin A1C 7.5(H) (4.0-5.6) % [facility] Comment: MONITORING: In known diabetic patients, hemoglobin A1c targets should be discussed with health care provider. DIAGNOSTIC USE: The [place] Diabetes Association (ADA) and the World Health [...] Supplement 1 Testing performed or reported by [facility] Reference [employer], a Service of [facility], [address] [place] [address] Marco Delgado MD, Back End Developer [facility]# [id number] Blood specimen (specimen) Venous blood / Unknown 10/27/2021 3:46 PM EDT 10/27/2021 4:03 PM EDT us Connie URIBE LAB BLOOD ORDERABLES Final Res ult [facility] from Last 3 Months or Most Recently Relevant to Health Maintenance Insurance [facility] Healthnet Care Teams Electric Golf Cart Repairer Relationship Specialty Start Date End Date Clay Guevara PA [address] [facility], [address] [place] [address] PCP - General Physician Zipper Trimmer Hand 06/23/20
--- OUTSIDE RECORDS SUMMARY | 2025-04-14 16:21 | XMS_ITS | Encounter Summary ---
Author Organization [facility] Address [address] [place] [address] Phone Care Team Providers Care Retail Seasonal Specialist Name Role Phone Clay Guevara Primary Care Provider Reason for Visit * Reason Comments Med Refill Encounter Details Date Type Department Care Team (Late st Contact Info) Description 12/15/2023 Refill [facility] [address] [place] [address] Lucio Hancock MD [address] [facility] [place] [address] Social History Tobacco Use Types [...] Office Visit [facility] [address] [place] [address] Lucio Hancock MD [address] [facility] [place] [address] documented as of this encounter Visit Diagnoses Not on filedocumented in this encounter Care Teams Retail Seasonal Specialist Relationship Specialty Start Date End Date Clay Guevara PA [address] [place] [address], [address] [place] [address] PCP - General Physician Ski Edge Painter 06/23/20 documented as of this encounter
--- OUTSIDE RECORDS SUMMARY | 2025-04-14 16:21 | XMS_ITS | Encounter Summary ---
Author Organization [facility] [place], Address [address] [place] [address] Phone Care Team Providers Care Vest Backer Name Role Phone Clay Guevara Primary Care Provider [phone] Encounter Details Date Type Department Care Team (Late st Contact Info) Description 04/28/2021 Documentation Only [facility] [address] [place] [address] Connie Stafford PA Social History [...] Visit [facility] [address] [place] [address] Lucio Hancock MD [address] [place] [address] [place] [phone] documented as of this encounter Visit Diagnoses Not on filedocumented in this encounter Care Teams Vest Backer Relationship Specialty Start Date End Date Clay Guevara PA [address] [place] [address], [address] [place] [address] PCP - General Physician Electrician'S Helper 06/23/20 documented as of this encounter
--- OUTSIDE RECORDS SUMMARY | 2025-04-14 16:21 | XMS_ITS | Encounter Summary ---
Author Organization [facility] Address [address] [place] [address] Phone Care Team Providers Care Manual Writer Name Role Phone Clay Guevara Primary Care Provider [phone] Encounter Details Date Type Department Care Team (Late st Contact Info) Description 04/16/2024 Documentation Only [facility] [address] [place] [address] Susanne Durán[place], [place] [address] [place] [address] Social History Tobacco Use Types [...] Visit [facility] [address] [place] [address] Lucio Hancock MD [address] [facility] [place] [address] documented as of this encounter Visit Diagnoses Not on filedocumented in this encounter Care Teams Manual Writer Relationship Specialty Start Date End Date Clay Guevara PA [address] [place] [address], [address] [place] [address] PCP - General Physician Plisse Machine Operator 06/23/20 documented as of this encounter
--- OUTSIDE RECORDS SUMMARY | 2025-04-14 16:21 | XMS_ITS | Encounter Summary ---
Author Organization [facility] Address [address] [place] [address] Phone Care Team Providers Care Test Rider Name Role Phone Clay Guevara Primary Care Provider [phone] Reason for Visit * Reason Comments Med Refill Encounter Details Date Type Department Care Team (Late st Contact Info) Description 11/19/2023 Refill [facility] [address] [place] [address] Lucio Hancock MD [address] [facility] [place] [address] Social History Tobacco Use Types [...] Office Visit [facility] [address] [place] [address] Lucio Hancock MD [address] [facility] [place] [address] documented as of this encounter Visit Diagnoses Not on filedocumented in this encounter Care Teams Test Rider Relationship Specialty Start Date End Date Clay Guevara PA [address] [place] [address], [address] [place] [address] PCP - General Physician Tobacco Sprayer 06/23/20 documented as of this encounter
--- OUTSIDE RECORDS SUMMARY | 2025-04-14 16:21 | XMS_ITS | Clinical Summary ---
Author Organization [facility] Address [address] [place] [address] Phone Care Team Providers Care Injection Molding Process Technician Name Role Phone Clay Guevara Primary Care Provider Medical History Medical History Date Comments Other and unspecified hyperlipidemia 04/18/2005 DX:Other and unspecified hyperlipidemia Morbid obesity ([facility] V24, [facility] V28) 04/18/2005 DX:Morbid obesity ([facility]) Type II or unspecified type diabetes mellitus without mention of complication, not stated as uncontrolled 04/18/2005 DX:Type II or unspecified ty pe diabetes mellitus without mention of complication, not stated as uncontrolled Type 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, uncontrolled(250.42) (CMS/HCC V24, [facility] V28) 02/01/2007 DX:Type II or unspecified ty pe diabetes mellitus with renal manifestations, uncontrolled(250.42) ([facility]) Reflux 07/27/07 DX:Reflux Essential hypertension, benign 05/17/07 [...] PM EDT Office Visit Bariatric Surgery - [address] [place] [address] Makenzie Rodriguez MD [address] [place] [phone] Health Maintenance Due Date Last Done Comments [...] Influencers of Health Screening 01/06/2025 COVID-19 Vaccine (2023-2 5 season) 2025 Influenza Vaccine (#1) 2025 [...] patient's age to complete this topic Insurance [employer] Care Teams Injection Molding Process Technician Relationship Specialty Start Date End Date Clay Guevara PA [address] [place] [phone] PCP - General Physician Surgical Nurse 01/05/25
--- OUTSIDE RECORDS SUMMARY | 2025-04-14 16:21 | XMS_ITS | Encounter Summary ---
Author Organization [facility], Address [address] [place] [address] Phone Care Team Providers Care Gum Machine Operator Name Role Phone Clay Guevara Primary Care Provider [phone] Reason for Visit * Reason Onset Date Comments senior living visit 08/14/2019 CKDIII/HTN Encounter Details Date Type Department Care Team (Late st Contact Info) Description 08/14/2019 Documentation Only [facility] [address] [place] [phone] Connie Stafford PA Social History Tobacco Use [...] Visit [facility], [address] [place] [phone] Lucio Hancock MD [address] [place] [phone] documented as of this encounter Visit Diagnoses Not on filedocumented in this encounter Care Teams Gum Machine Operator Relationship Specialty Start Date End Date Clay Guevara PA [address] [place] [address], [address] [place] [address] PCP - General Physician Cullet Crusher 06/23/20 documented as of this encounter
== END 2025-04-14 14:20 | disposition home or self-care (01) ==
LOC: HO.ENCR 13:46
PROVIDERS: PCP Physician Assistant; Visit Provider Physician Assistant Medical
DX: E11.8 Type 2 diabetes mellitus with unspecified complications (principal); E66.01 Morbid (severe) obesity due to excess calories

== ENCOUNTER → 2025-04-14 13:45 | Outpatient (BNVA) | payer OTHER, SELFPAY | PROVIDERS: PCP Physician Assistant; Visit Provider Physician Assistant Medical | DX: E11.8 Type 2 diabetes mellitus with unspecified complications (principal); Z79.4 Long term (current) use of insulin; E66.01 Morbid (severe) obesity due to excess calories; N18.30 Chronic kidney disease, stage 3 unspecified; E11.22 Type 2 diabetes mellitus with diabetic chronic kidney disease; I10 Essential (primary) hypertension | CPT/HCPCS: 82947; 99212 ==

== ENCOUNTER 2025-05-07 14:53 | Outpatient (AMB) | payer OTHER, SELFPAY ==
--- OUTSIDE RECORDS SUMMARY | 2025-05-05 14:40 | XMS_ITS | Encounter Summary ---
Author Organization [facility] Address [address] [place] [address] Care Team Providers Care Silk Screen Printer Name Role Phone Clay Guevara Primary Care Provider [phone] Encounter Details Date Type Department Care Team (Latest Contact Info) Description 05/05/2025 2:40 PM EDT - 05/05/2025 11:59 PM EDT Hospital Encounter [facility] Xray [address] [place] [address] Arrived Discharge Disposition: Home or Self Care Social History Tobacco Use Types Packs/Day Years Used Date Smoking Tobacco: Never Alcohol Use Standard Drinks/Week Comments No 0 (1 standard drink = 0.6 oz pur e alcohol) Sex and Gender Information Value Date Recorded Sex Assigned at Male 04/16/2025 9:30 AM EDT Legal Sex Male 6:39 AM EST Gender Identity Not on file Sexual Orientation Not on file documented as of this encounter Medications at Time of Discharge aspirin 81 mg EC tablet Take 1 tablet (81 mg total) by mouth 1 (one) time each day. 06/05/2018 atorvastatin (LIPITOR) 80 mg tablet Take 1 tablet (80 mg total) by mouth 1 (one) time each day. carvediloL (COREG) 25 mg tablet Take 1 tablet (25 mg total) by mouth 2 (two) times a day with meals. 09/01/2020 cholecalciferol (VITAMIN D-3) 25 mcg (1,000 unit) tablet 1 tablet (1,000 Units total). famotidine (PEPCID) 20 mg tablet Take 1 tablet (20 mg total) by mouth 1 (one) time each day. gabapentin (NEURONTIN) 800 mg tablet Take 1 tablet (800 mg total) by mouth 3 (three) times a day. 04/21/2025 HumaLOG KwikPen Insulin 200 unit/mL (3 mL) CONCENTRATED injection pen Inject 38 Units under the skin 1 (one) time each day before dinner. 04/21/2025 hydrALAZINE (APRESOLINE) 100 mg tablet Take 1 tablet (100 mg total) by mouth 2 (two) times a day. hydroCHLOROthiazid e (HYDRODIURIL) 25 mg tablet Take 1 tablet (25 mg total) by mouth 1 (one) time each day. 07/20/2010 lisinopriL (PRINIVIL,ZESTRIL) 20 mg tablet Take 1 tablet (20 mg total) by mouth 1 (one) time each day. NIFEdipine CC (ADALAT CC) 90 mg 24 hr tablet Take 1 tablet (90 mg total) by mouth 1 (one) time each day before breakfast. omeprazole (PriLOSEC) [address] capsule Take 1 capsule (40 mg total) by mouth at bedtime. at bedtime Tresiba FlexTouch U-200 200 unit/mL (3 mL) CONCENTRATED injection pen Inject 70 Units under the skin at bedtime. 03/27/2025 documented as of this encounter Discharge Disposition Disposition Code Departure Means Destination Home or Self Care documented in this encounter Plan of Treatment Upcoming Encounters Date Type Department Care Team (Late st Contact Info) Description 05/19/2025 1:15 PM EDT Consult Bariatric Surgery - [address] [place] [phone] Makenzie Rodriguez MD [address] [place] [phone] 05/21/2025 10:00 AM EDT Hospital Encounter [facility] Main OR [address] [place] [phone] Makenzie Rodriguez MD [address] [place] [phone] 05/21/2025 10:00 AM EDT - 05/21/2025 12:30 PM EDT Surgery [facility] Main OR [address] [place] [phone] Makenzie Rodriguez MD [address] [place] [phone] DAVINCI SLEEVE GASTRECTOMY [70311 (CPT )] 06/08/2025 11:15 AM EST Office Visit Bariatric Surgery [facility] [address] [phone] Makenzie Rodriguez MD [address] [place] [phone] 06/16/2025 8:00 AM EST Appointment [facility] Nuclear Medicine [address] [place] [phone] 06/23/2025 11:00 AM EST Telemedicine Bariatric Surgery - [place] [address] [phone] Carmel Blake, RD [address] [phone] 08/03/2025 1:00 PM EST Office Visit Bariatric Surgery [address] [phone] Makenzie Rodriguez MD [address] [place] [phone] Scheduled Procedures Name Priority Associated Diagnoses Date/Ti me GASTRECTOMY SLEEVE ROBOT Morbid obesity with BMI of 45.0-49.9, adult (CMS/HCC V24, CMS/HCC V28) 05/21/2025 10:00 AM EDT documented as of this encounter Goals Goal Patient Goal Type Associated Problems Recent Progress Patient-Stated? Author Autogenera geetha Goal Care Plan Autogenerated Problem No Makenzie Rodriguez MD documented as of this encounter Procedures Procedure Name Priority Date/Time Associated Diagnosis Comments XR CHEST 2 VIEWS Routine 05/05/2025 2:55 PM EDT Morbid obesity with BMI of 45.0-49.9, adult (CMS/HCC V24, [facility] V28) documented in this encounter Results * XR Chest 2 Views (05/05/2025 2:55 PM EDT) Anatomical Region Laterality Modality Body Radiographic Anastacia ging 05/06/2025 7:50 AM EDT Impressions 05/06/2025 7:51 AM EDT No acute pulmonary disease. Code 07647 -------- FINAL REPORT -------- Dictated By: Reji Nicholson Dictated Date: 05/06/2025 07:50 ET Assigned Physician: Reji Nicholson Reviewed and Electronically Signed By: Reji Nicholson Signed Date: 05/06/2025 07:51 ET Workstation ID: [id number] Transcribed By: Self Edit Transcribed Date: 05/06/2025 07:50 ET Narrative 05/06/2025 7:51 AM EDT HISTORY: The patient is a 39-year-old male undergoing evaluation prior to bariatric surgery. FINDINGS: Sitting AP and lateral radiographs of the chest, without previous for comparison, demonstrate the thoracic spine to be moderately kyphotic. 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 The cardiac and mediastinal contours are within normal limits allowing for AP technique. The lungs and costophrenic angles are clear. Procedure Note Reji Nicholson MD - 05/06/2025 HISTORY: The patient is a 39-year-old male undergoing evaluation prior tobariatric surgery. FINDINGS: Sitting AP and lateral radiographs of the chest, withoutprevious for comparison, demonstrate the thoracic spine to be moderatelykyphotic. 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 The cardiac andmediastinal contours are within normal limits allowing for AP technique.The lungs and costophrenic angles are clear. IMPRESSION: No acute pulmonary disease. Code 28676 -------- FINAL REPORT -------- Dictated By: Reji Nicholson Dictated Date: 05/06/2025 07:50 ET Assigned Physician: Reji Nicholson Reviewed and Electronically Signed By: Reji Nicholson Signed Date: 05/06/2025 07:51 ET Workstation ID: [id number] Transcribed By: Self Edit Transcribed Date: 05/06/2025 07:50 ET us Makenzie Rodriguez MD IMG XR PROCEDURES Final Result documented in this encounter Visit Diagnoses Not on filedocumented in this encounter Additional Health Concerns Active Problems Noted Date Diagnosed Date Autogenerated Problem 05/04/2025 documented as of this encounter Care Teams Silk Screen Printer Relationship Specialty Start Date End Date Clay Guevara PA [address] [place] [phone] PCP - General Physician Paper Sample Clerk 01/05/25 documented as of this encounter
--- OUTSIDE RECORDS SUMMARY | 2025-05-07 11:00 | XMS_ITS | Encounter Summary ---
Author Organization [facility] Address [address] [place] [address] Care Team Providers Care Carton Liner Name Role Phone Clay Guevara Primary Care Provider [phone] Reason for Visit * Reason Comments Obesity Encounter Details Date Type Department Care Team ([facility] st Contact Info) Description 05/07/2025 11:00 AM EDT Consult Bariatric Surgery - [address] [phone] Carmel Blake, CASIMIRO [address] [address] Class 3 severe obesity with serious comorbidity and body mass index (BMI) of 45.0 to 49.9 in adult, unspecified obesity type (CMS/HCC V24, CMS/HCC V28) (Primary Dx) Social History Tobacco Use Types Packs/Day Years [...] on file documented as of this encounter Last Filed Vital Signs Vital Sign Reading Time Taken Comments Blood Pressure - - Pulse - - Temperature - - Respiratory Rate - - Oxygen Saturation - - Inhaled Oxygen Concentration - - Weight 142 kg (314 lb) 05/07/2025 11:21 AM EDT Height - - Body Mass Index 46.37 04/15/2025 2:38 PM EDT documented in this encounter Progress Notes * Carmel lBake RD - 05/07/2025 11:00 AM EDT Start pre-op diet today (14 days prior to surgery date 05/21/25 Over the counter medications and supplements (not covered by insurance) Further details can be found in your binder -Oral Bariatric multi-vitamin or multivitamin patch ([email or web address])- Will not need additional calcium citrate below with patch -Calcium Citrate 600mg with Vitamin D3 (taken separately from multi-vitamin) -Simethicone (Gas-x) -Benefiber (for constipation) -Tylenol -Miralax (for constipation) * Carmel Blake RD - 05/07/2025 11:00 AM EDT INITIAL NUTRITION CONSULT Patient Name: Jerome Gómez Date of : 1985 Date of Service: 05/07/2025 SURGEON: Makenzie Rodriguez MD DESIRED SURGERY: Gastric Sleeve Pt completed [place] program, surgery was cancelled in OR, pt had food in stomach This appointment was a consult and pre and post-op teaching CHIEF COMPLAINT: Obesity HISTORY: Jerome Gómez is a 39 y.o. Male who presents for initial nutrition visit for Pre-op bariatric surgery Reports reasons for wanting to lose weight: To improve mobility, To be more independent , and To help resolve co morbidities What made you decide to have weight loss surgery? Other methods unsuccessful Do you know anyone who has had weight loss surgery? 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 Wt at initial: 310 Wt change since initial: +4 EBW = current - wt at BMI of 25: 314 - 160 (calculated ideal BW with lower leg amputee) = 154 Goal wt: 240 Highest/lowest wt: 380/300 Onset of obesity: 9 years ago Family history of obesity: Yes Possible triggers to weight gain: emotional Life events that lead to weight gain: stroke 9 years ago, gained during rehab (2 years) , during covid Factors making weight loss difficult: limited activity right leg amputee in wheel chair sometimes awalker, bread lover Weight change in the past year: steady EATING HABITS/DIET RECALL: wake: 9 am; sleep 1 am Breakfast: skip Lunch: (12 pm): shake (Premiere, 30 grams) Lunch: (3 pm): yogurt Dinner: (7 pm): dinner and vegetables Beverages: water (4 bottles), may have soda with dinner Dislikes: did not discuss Dines out: yes too much chicken [facility] History of disordered eating: Did not discuss Skips meals: Yes Pace of eating: Fast GI issues: Heartburn, constipated chronic (prune juice, miralax) Food allergies / intolerances: None, shell fish Exercise: swimming, PT 3-4 x a week Reasons patient cannot / should not exercise: uses wheelchair/ walker below knee amputee (no prosthetic until after wt loss) SOCIAL HISTORY: Occupation: disabled Work schedule: none Lives with: self Support system: family Who cooks at home/shopping: self Alcohol: No Smoking: No PAST MEDICAL HISTORY: Medical History[1] ACTIVE PROBLEM LIST: Problem List[2] PAST SURGICAL HISTORY: Surgical History[3] PAST FAMILY HISTORY: Family History[4] ACTIVE MEDICATIONS: Medications Ordered Prior to Encounter[5] ALLERGIES: Current Allergies[6] Nutrition diagnosis: Class III obesity related to {Food/Nutrition related knowledge deficit and Inadequate Physical Activity as evidenced by A BMI 46 Patient-created Goals: Start pre-op diet today (14 days prior to surgery date 05/21/25 Over the counter medications and supplements (not covered by insurance) Further details can be found in your binder -Oral Bariatric multi-vitamin or multivitamin patch (patchaid.Myoonet)- Will not need additional calcium citrate below with patch -Calcium Citrate 600mg with Vitamin D3 (taken separately from multi-vitamin) -Simethicone (Gas-x) -Benefiber (for constipation) -Tylenol -Miralax (for constipation) Literature Provided: Build a healthy plate, Healthy snack handout, Protein content , Goal sheets, RD contact information , Pr-op dietary guidelines, and Post-op dietary guidelines Interventions: Discussed pre and post=op diet Nutrition assessment: Pt is 39 y.o. 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 He has no past medical history of Amblyopia, unspecified, Bronchitis, not specified as acute or chronic, Macular degeneration (senile) of retina, unspecified, Retinal detachment with retinal defect, unspecified, or Unspecified disorder of thyroid. Obesity class III Stage of change/Barriers to understanding: Pt is motivated to make changes to diet and lifestyle and No barriers to understanding Concerns regarding considerations for bariatric surgery: Pt voiced none and RD has none Monitoring/Evaluation: Monitor weight and Monitor progress toward nutrition goals RD to see patient for follow-up in 6 weeks Visit Time: Total time of the visit was spent face to face in medical nutritional therapy was [address] NUTRITION SERVICES [1] Past Medical History: Diagnosis Date Essential hypertension, benign 05/17/07 DX:Essential hypertension, benign Essential hypertension, benign 05/17/07 DX:Essential hypertension, benign Morbid obesity (CMS/HCC V24, CMS/HCC V28) 04/18/2005 DX:Morbid obesity (HCC) Other and unspecified hyperlipidemia 04/18/2005 DX:Other and unspecified hyperlipidemia Preglaucoma 07/27/07 DX:Preglaucoma Reflux 07/27/07 DX:Reflux Type 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, uncontrolled(250.42) (CMS/[facility] V24, CMS/[facility] V28) 02/01/2007 DX:Type 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, uncontrolled(250.42) ([facility]) Type II or unspecified type diabetes mellitus without mention of complication, not stated as uncontrolled 04/18/2005 DX:Type II or unspecified type diabetes mellitus without mention of complication, not stated as uncontrolled [2] Patient Active Problem List Diagnosis Morbid obesity with BMI of 45.0-49.9, adult ([facility] V24, [facility] V28) [3] Past Surgical History: Procedure Laterality Date AMPUTATION RBKA EYE SURGERY RETINAL DETACHMENT [4] Family History Problem Relation Name Age of Onset Cataracts Maternal Grandmother Blindness Neg Hx Glaucoma Neg Hx Macular degeneration Neg Hx Strabismus Neg Hx [5] Current Outpatient Medications on File Prior to Visit Medication Sig Dispense Refill aspirin 81 mg EC tablet Take 1 tablet (81 mg total) by mouth 1 (one) time each day. atorvastatin (LIPITOR) 80 mg tablet Take 1 tablet (80 mg total) by mouth 1 (one) time each day. carvediloL (COREG) 25 mg tablet Take 1 tablet (25 mg total) by mouth 2 (two) times a day with meals. cholecalciferol (VITAMIN D-3) 25 mcg (1,000 unit) tablet 1 tablet (1,000 Units total). famotidine (PEPCID) 20 mg tablet Take 1 tablet (20 mg total) by mouth 1 (one) time each day. gabapentin (NEURONTIN) 800 mg tablet Take 1 tablet (800 mg total) by mouth 3 (three) times a day. HumaLOG KwikPen Insulin 200 unit/mL (3 mL) CONCENTRATED injection pen Inject 38 Units under the skin 1 (one) time each day before dinner. hydrALAZINE (APRESOLINE) 100 mg tablet Take 1 tablet (100 mg total) by mouth 2 (two) times a day. hydroCHLOROthiazide (HYDRODIURIL) 25 mg tablet Take 1 tablet (25 mg total) by mouth 1 (one) time each day. lisinopriL (PRINIVIL,ZESTRIL) 20 mg tablet Take 1 tablet (20 mg total) by mouth 1 (one) time each day. NIFEdipine CC (ADALAT CC) 90 mg 24 hr tablet Take 1 tablet (90 mg total) by mouth 1 (one) time eachday before breakfast. omeprazole (PriLOSEC) [address] capsule Take 1 capsule (40 mg total) by mouth at bedtime. at bedtime Tresiba FlexTouch U-200 200 unit/mL (3 mL) CONCENTRATED injection pen Inject 70 Units under the skin at bedtime. No current facility-administered medications on file prior to visit. [6] Allergies Allergen Reactions Nsaids (Non-Steroidal Anti-Inflammatory Drug) Unsure. documented in this encounter Plan of Treatment Upcoming Encounters Date Type Department Care Team (Late st Contact Info) Description 05/19/2025 1:15 PM EDT Consult Bariatric Surgery [address] [phone] Makenzie Rodriguez MD [address] [place] [phone] 05/21/2025 10:00 AM EDT Hospital Encounter [address] [phone] Makenzie Rodriguez MD [address] [place] [phone] 05/21/2025 10:00 AM EDT - 05/21/2025 12:30 PM EDT Surgery [address] [phone] Makenzie Rodriguez MD [address] [place] [phone] DAVINCI SLEEVE GASTRECTOMY [52567 (CPT )] 06/08/2025 11:15 AM EST Office Visit Bariatric Surgery [address] [phone] Makenzie Rodriguez MD [address] [place] [phone] 06/16/2025 8:00 AM EST Appointment [facility] Nuclear Medicine [address] [place] [phone] 06/23/2025 11:00 AM EST Telemedicine Bariatric Surgery - [place] [address] [facility] [address] [place] [address] Carmel Blake, RD 175 [facility] [address] [place] [phone] 08/03/2025 1:00 PM EST Office Visit Bariatric Surgery - [place] [address] [phone] Makenzie Rodriguez MD [address] [place] [phone] Scheduled Procedures Name Priority Associated Diagnoses Date/Ti me GASTRECTOMY SLEEVE ROBOT Morbid obesity with BMI of 45.0-49.9, adult ([facility] V24, [facility] V28) 05/21/2025 10:00 AM EDT documented as of this encounter Goals Goal Patient Goal Type Associated Problems Recent Progress Patient-Stated? Author Autogenera geetha Goal Care Plan Autogenerated Problem No Makenzie Rodriguez MD documented as of this encounter Visit Diagnoses Diagnosis Morbid obesity with BMI of 45.0-49.9, adult ([facility] V24, CMS/[facility] V28)- Primary Class 3 severe obesity with serious comorbidity and body mass index (BMI) of 45.0 to 49.9 in adult, unspecified obesity type ([facility] V24, CMS/[facility] V28)- Primary Morbid obesity with BMI of 45.0-49.9, adult ([facility] V24, CMS/[facility] V28) documented in this encounter Additional Health Concerns Active Problems Noted Date Diagnosed Date Autogenerated Problem 05/04/2025 documented as of this encounter Care Teams Carton Liner Relationship Specialty Start Date End Date Clay Guevara PA [address] [place] [phone] PCP - General Physician Advance Agent 01/05/25 documented as of this encounter
[2025-05-07 15:11] VITALS: BMI 46.4
--- NOTE | 2025-05-07 15:11 | A.OFFVIS_ITS ---
Vital Signs 05/07/25 15:11 Height 5 ft 9 in Weight 314 lb BMI 46.4 Intake Visit Reasons: New Pt- Diabetic foot exam Intake Note: Jerome is a 39 year old male who presents today as a new patient for a bilateral diabetic foot exam. He had checked his glucose levels today and his reading is 279. Patient reports feeling numbness or tingling in his feet with no burning. Patient has history of a wound in his left foot about 2 years ago and he has an amputation of his right foot. he states he has back pain all the time with no injuries occurring and he is currently taking gabapentin. Allergies NSAIDS (Non-Steroidal Anti-Inflamma Allergy (Unknown, Verified 05/07/25 15:12) Unknown sulfamethoxazole (From Bactrim) Adverse Reaction (Intermediate, Verified 05/07/25 15:12) Elevated renal functions trimethoprim (From Bactrim) Adverse Reaction (Intermediate, Verified 05/07/25 15:12) Elevated renal functions HPI HPI New Pt- Diabetic foot exam: Details: This patient is a 39-year-old male with past medical history of diabetes mellitus type 2, CKD, CVA with right-sided weakness, hypertension, GERD, right hip arthritis, right below-knee amputation, and left eye blindness. He was seen for initial evaluation of left foot painful toenails as well as left ankle swelling. At baseline, the patient ambulates using a walker a few times a day, states he is able to also climbs stairs. He was seen today in a wheelchair. He states his limitation in walking is both due to his amputation as well as right hip pain. He mentions that he has a prosthetic leg however he is not wearing one today. Patient states he was diagnosed with type 2 diabetes at the age of 14. He had not treated his diabetes until his 30s when he started having several health complications including his amputation. He states his right below-knee amputation started with a blister/infection to his foot which led to subsequent below-knee amputation. He also notes that he has excess tissue in his right leg and is planned for revision amputation/plastics closure with Plastic surgery in the future after he undergoes bariatric surgery. Patient states that he has planned for bariatric surgery May 2025. The patient states his FBS today was in the mid 200s, stating that he was unable to take his insulin today. He mentions that he has not been on top his diabetes as regularly. The patient today denies dizziness, blurry vision, nausea, vomiting, headache, chills, chest pain, shortness of breath. [facility] Medical History (Updated 05/07/25 @ 15:35 by Colby Auguste DPM) Acute respiratory disease Depression Insomnia Anxiety DJD (degenerative joint disease) Sleep apnea treated with continuous positive airway pressure (CPAP) Arthritis PAD (peripheral artery disease) CKD (chronic kidney disease) Exposure to bloodborne pathogen Abnormal stress test History of stroke Morbid obesity NOLAN (obstructive sleep apnea) HTN (hypertension) Right below-knee amputee Blind left eye Neuropathy CVA (cerebral vascular accident) (~2019) Sleep apnea Obesity Vitamin D deficiency HLD (hyperlipidemia) GERD (gastroesophageal reflux disease) Below knee amputation Type 2 diabetes mellitus Surgical History (Updated 03/17/25 @ 10:07 by Ciara Fisher, RN) History of esophagogastroduodenoscopy (EGD) (10/15/24) Hx of eye surgery History of amputation of right foot Family History Mother Diabetes Father Prostate cancer Paternal Aunt Diabetes Brother No problems noted. Brother No problems noted. Brother No problems noted. Brother No problems noted. Brother No problems noted. Sister No problems noted. 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 CONSULTING MANAGER daily) 75 years or older and lives alone: No Alcohol intake: never Patient Tobacco Use Status: Never used Tobacco e-Cigarette/Vaping Use: Never Used Second Hand Smoke Exposure: No service: No Current occupational status: disabled Cognitive needs: Yes (walk, wheelchair (w/c weighs 360lbs)) Hearing needs: No Vision needs: Yes (glasses) Review of Systems Const All systems reviewed & are unremarkable except as noted in HPI and below Physical Exam Vital Signs: BMI result Body Mass Index 46.4 Extrem Other: *Bilateral Lower Extremity Focused Diabetic Foot Exam Vascular: DP/PT 2/4 left foot, CFT<3s to digits, TG warm to cool, no pitting or nonpitting left foot edema, significant perimalleolar left ankle tissue, pedal hair absent Derm: Skin: No open lesions, ulcerations, or calluses to the left foot. There is a healed dorsal lateral skin patch from a previous wound. Interdigital spaces: Clear, no maceration or fungal infection. Nails: Thickened elongated dystrophic toenails left foot. Neuro: Protective sensation grossly diminished to the left lower extremity. Msk: Status post right below-knee amputation with at least 6-8 inches of excess tissue distal to the transected tibia/fibula. Deformities: Pes planus left foot type. Significant lymphedema/adipose tissue left medial ankle. Muscle strength: 4/5 left lower extremity. Gait: Nonweightbearing in wheelchair. Footwear Assessment: Shoes inspected; appropriate fit, no excessive wear, or foreign objects noted. Office Procedures AMB Debridement/Avulsion Podia Details: Procedure: Nail debridement Location: 5 nails left foot Anesthesia: N/A Description: The affected toenails were cleansed with an antiseptic solution. Using sterile nail nippers and a rotary katrina, dystrophic and mycotic nail material was carefully debrided and reduced in thickness. Care was taken to avoid trauma to the surrounding skin and nail bed. All debris was removed as tolerated. The area was inspected for signs of infection or ulceration. Patient tolerated the procedure well without complications. Tolerance: Patient tolerated procedure well, no immediate complications. Class A & B findings as per physical exam findings above. The patient has a diagnosis of diabetes mellitus and presents with elongated, thickened toenails. Due to underlying diabetic neuropathy and mild vascular disease findings, the patient is at increased risk for complications such as ulceration, infection, and difficulty with self-care. Debridement of elongated toenails is medically necessary to prevent development of pressure-related lesions, reduce risk of secondary infection, and maintain foot health in high- risk comorbidities. 40854-Stohsuqkjsw of Nail <6 Procedure code (CPT) selection complete Assessment & Plan Assessment & Plan (1) Type 2 diabetes mellitus with unspecified complications: Code(s): E11.8 - Type 2 diabetes mellitus with unspecified complications Category: Medical Plan: Risk Stratification: No current ulceration, infection, or pre-ulcerative lesion. The patient has significant loss of protective sensation and arterial studies that show mild peripheral arterial disease. Patient is at high risk for diabetic foot complications at this time. Recommendations: Continue routine foot care and daily self-inspection. Recommend moisturizing daily. Recommend supportive proper fitting shoe-wear. Reinforced diabetic foot education and risks from peripheral neuropathy. Explained that he must achieve glycemic control and reduce his A1c. Even though there are no ulcerative lesions at this time, he is still high risk of below- knee amputation left leg. (2) Left leg swelling: Code(s): M79.89 - Other specified soft tissue disorders Category: Medical Plan: * Left foot and ankle x-rays ordered * The patient may require left ankle MRI (3) Amputated right leg: Code(s): S88.911A - Complete traumatic amputation of right lower leg, level unspecified, initial encounter Category: Medical Plan: * Recommended revision right below-knee amputation with vascular surgery (or pl astic surgery as per patient's current plan) to accommodate for better prosthetic limb. However, rest of care per vascular/past surgery team. (4) Tinea: Code(s): B35.9 - Dermatophytosis, unspecified Category: Medical Plan: * Debrided elongated nails x5 left foot. Slight pinpoint bleeding to the left 4th digit after nail removal. This was cauterized using a silver nitrate stick, dressed with triple antibiotic ointment and Band-Aid. He has rec ommended discontinuing the Band-Aid tomorrow. * Follow up in 9 weeks. Orders: Orders AMB Debridement/Avulsion Podiatry Today B35.9 - Dermatophytosis, unspecified XR ankle LT min 3V Today M79.89 - Other specified soft tissue disorders XR foot LT min 3V Today M79.89 - Other specified soft tissue disorders Coding Level of Care Code New Pt Level 4 (96482) Diagnoses Type 2 diabetes mellitus with unspecified complications E11.8 Left leg swelling M79.89 Amputated right leg S88.911A Tinea B35.9 CPT Codes Skin Debridement - CPT: 85219-Fqwombbocdm of Nail <6 ([id number]) Time Spent (min) 45
--- OUTSIDE RECORDS SUMMARY | 2025-05-07 16:22 | XMS_ITS | Clinical Summary ---
Author Organization [facility] Address [address] [place] [address] Phone Care Team Providers Care Heating Element Builder Name Role Phone Clay Guevara Primary Care Provider Allergies Active Allergy Reactions Criticality Noted Date Comments Nsaids (Non-Steroidal Anti-I nflammatory Drug) 04/15/2025 Unsure. Medications aspirin 81 mg EC tablet Take 1 tablet (81 mg total) by mouth 1 (one) time each day. 8 Active atorvastatin (LIPITOR) 80 mg tablet Take 1 tablet (80 mg total) by mouth 1 (one) time each day. Active carvediloL (COREG) 25 mg tablet Take 1 tablet (25 mg total) by mouth 2 (two) times a day with meals. 1 Active cholecalciferol (VITAMIN D-3) 25 mcg (1,000 unit) tablet 1 tablet (1,000 Units total). Active famotidine (PEPCID) 20 mg tablet Take 1 tablet (20 mg total) by mouth 1 (one) time each day. Active hydrALAZINE (APRESOLINE) 100 mg tablet Take 1 tablet (100 mg total) by mouth 2 (two) times a day. Active hydroCHLOROthiazi de (HYDRODIURIL) 25 mg tablet Take 1 tablet (25 mg total) by mouth 1 (one) time each day. 0 Active Tresiba FlexTouch U-200 200 unit/mL (3 mL) CONCENTRATED injection pen Inject 70 Units under the skin at bedtime. Active HumaLOG KwikPen Insulin 200 unit/mL (3 mL) CONCENTRATED injection pen Inject 38 Units under the skin 1 (one) time each day before dinner. Active lisinopriL (PRINIVIL,ZESTRIL ) 20 mg tablet Take 1 tablet (20 mg total) by mouth 1 (one) time each day. Active NIFEdipine CC (ADALAT CC) 90 mg 24 hr tablet Take 1 tablet (90 mg total) by mouth 1 (one) time each day before breakfast. Active omeprazole (PriLOSEC) [address] capsule Take 1 capsule (40 mg total) by mouth at bedtime. at bedtime Active gabapentin (NEURONTIN) 800 mg tablet Take 1 tablet (800 mg total) by mouth 3 (three) times a day. Active Active Problems Problem Noted Date Diagnosed Date Class 3 severe obesity with serious comorbidity and body mass index (BMI) of 45.0 to 49.9 in adult ([facility] V24, [facility] V28) 05/07/2025 Morbid obesity with BMI of 4 5.0-49.9, adult ([facility] V24, [facility] V28) 04/17/2025 Encounters Date Type Department Care Team Description 05/07/2025 11:00 AM EDT Consult Bariatric Surgery [address] [phone] Carmel Blake, CASIMIRO Class 3 severe obesity with serious comorbidity and body mass index (BMI) of 45.0 to 49.9 in adult, unspecified obesity type ([facility] V24, [facility] V28) (Primary Dx) 05/05/2025 2:40 PM EDT - 05/05/2025 11:59 PM EDT Hospital Encounter [facility] Xray [address] [place] [address] Arrived Discharge Disposition: Home or Self Care 04/15/2025 2:30 PM EDT Office Visit Bariatric Surgery [facility] [address] [phone] Makenzie Rodriguez MD Gastroparesis (Primary Dx); Obesity, Class III, BMI 40-49.9 (morbid obesity); Sleep apnea, unspecified type; Type 2 diabetes mellitus with obesity ([facility] V24, [facility] V28); Primary hypertension; Gastroesophageal reflux disease, unspecified whether esophagitis present from Last 3 Months Surgical History Surgery Date Site/Laterality Comments EYE SURGERY RETINAL DETACHMENT AMPUTATION [facility] Medical History Medical History Date Comments Other and unspecified hyperlipidemia 04/18/2005 DX:Other and unspecified hyperlipidemia Morbid obesity ([facility] V24, [facility] V28) 04/18/2005 DX:Morbid obesity ([facility]) Type II or unspecified type diabetes mellitus without mention of complication, not stated as uncontrolled 04/18/2005 DX:Type II or unspecified ty pe diabetes mellitus without mention of complication, not stated as uncontrolled Type 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, uncontrolled(250.42) ([facility] V24, [facility] V28) 02/01/2007 DX:Type II or unspecified ty pe diabetes mellitus with renal manifestations, uncontrolled(250.42) ([facility]) Reflux 07/27/07 DX:Reflux Essential hypertension, [...] Sexual Orientation Not on file Obstetrics History Last Filed Vital Signs Vital Sign Reading Time Taken Comments Blood Pressure 173/99 04/15/2025 2:38 PM EDT Pt didnt take medication today Pulse 96 04/15/2025 2:38 PM EDT Temperature 37.1 C (98.7 F) 04/15/2025 2:38 PM EDT Respiratory Rate - - Oxygen Saturation - - Inhaled Oxygen Concentration - - Weight 142 kg (314 lb) 05/07/2025 11:21 AM EDT Height 175.3 cm (5' 9 ) 04/15/2025 2:38 PM EDT Body Mass Index 46.37 04/15/2025 2:38 PM EDT Plan of Treatment Upcoming Encounters Date Type Department Care Team (Late st Contact Info) Description 05/19/2025 1:15 PM EDT Consult Bariatric Surgery [facility] [address] [phone] Makenzie Rodriguez MD [address] [place] [phone] 05/21/2025 10:00 AM EDT Hospital Encounter [facility] Main [address] [phone] Makenzie Rodriguez MD [address] [place] [phone] 05/21/2025 10:00 AM EDT - 05/21/2025 12:30 PM EDT Surgery [address] [phone] Makenzie Rodriguez MD [address] [place] [phone] DAVINCI SLEEVE GASTRECTOMY [86202 (CPT )] 06/08/2025 11:15 AM EST Office Visit Bariatric Surgery [facility] [address] [phone] Makenzie Rodriguez MD [address] [place] [phone] 06/16/2025 8:00 AM EST Appointment [facility] Nuclear Medicine [address] [place] [phone] 06/23/2025 11:00 AM EST Telemedicine Bariatric Surgery [facility] [address] [phone] Carmel Blake, RD 175 [facility] [address] [place] [address] 08/03/2025 1:00 PM EST Office Visit Bariatric Surgery - [place] [address] [facility] [address] [place] [address] Makenzie Rodriguez MD [address] [place] [phone] Scheduled Procedures Name Priority Associated Diagnoses Date/Ti me GASTRECTOMY SLEEVE ROBOT Morbid obesity with BMI of 45.0-49.9, adult (CMS/HCC V24, CMS/HCC V28) 05/21/2025 10:00 AM EDT Health Maintenance Due Date Last Done Comments Diabetes: Annual Foot Exam 1994 Diabetes: Annual Retina Eye Exam 1994 Hepatitis B Vaccines (1 of 3 - 19+ 3-dose series) 2003 Pneumococcal Vaccine: Pediatrics (0 to 5 Years) and At-Risk Patients (6 to 49 Years) (1 of 2 - PCV) 2003 HPV Vaccines (1 - 3-dose SCD M series) 2011 Depression Screening 08/06/2024 DTaP,Tdap,and Td Vaccines (2 - Td or Tdap) 08/11/2024 08/11/2014 Cholesterol Screening (Lipid Panel) 01/06/2025 Diabetes: Annual Urine Albumin-Creatinine Ratio (uACR) 01/06/2025 Diabetes: Blood Sugar Contro l Test (HGBA1C) 01/06/2025 10/27/2021 HIV Screening 01/06/2025 Hepatitis C Screening 01/06/2025 Social Influencers of Health Screening 01/06/2025 COVID-19 Vaccine ( - 2023-2 5 season) 2025 Influenza Vaccine (#1) 2025 , 05/21/2023 Diabetes: Annual GFR (Glomerular Filtration Rate) 05/05/2026 05/05/2025 Hypertension/CHF/CAD Annual BMP Blood Test 05/05/2026 05/05/2025 RSV Immunization Adult Patients (1 - 1-dose 75+ series) 2059 HIB Vaccines Aged Out No longer eligi [...] to complete this topic RSV Immunization Patients Under 20 months Aged Out No longer eligible b ased on patient's age to complete this topic Varicella Vaccines Aged Out No longer eligible based on patient's age to complete this topic Goals Goal Patient Goal Type Associated Problems Recent Progress Patient-Stated? Author Autogenera geetha Goal Care Plan Autogenerated Problem No Makenzie Rodriguez MD Procedures Procedure Name Priority Date/Time Associated Diagnosis Comments XR CHEST 2 VIEWS Routine 05/05/2025 2:55 PM EDT Morbid obesity with BMI of 45.0-49.9, adult (CMS/HCC V24, CMS/HCC V28) ECG 12-LEAD Routine 05/05/2025 2:34 PM EDT Morbid obesity with BMI of 45.0-49.9, adult (CMS/HCC V24, CMS/HCC V28) CBC WITH AUTO DIFFERENTIAL Routine 05/05/2025 2:18 PM EDT Morbid obesity with BMI of 45.0-49.9, adult (CMS/HCC V24, CMS/HCC V28) COMPREHENSIVE METABOLIC PANEL Routine 05/05/2025 2:18 PM EDT Morbid obesity with BMI of 45.0-49.9, adult (CMS/HCC V24, CMS/HCC V28) CBC AND DIFFERENTIAL Routine 05/05/2025 2:18 PM EDT Morbid obesity with BMI of 45.0-49.9, adult (CMS/HCC V24, CMS/HCC V28) TYPE AND SCREEN Routine 05/05/2025 2:18 PM EDT Morbid obesity with BMI of 45.0-49.9, adult (CMS/[facility] V24, CMS/[facility] V28) from Last 3 Months Results * XR Chest 2 Views (05/05/2025 2:55 PM EDT) Anatomical Region Laterality Modality Body Radiographic Anastacia ging 05/06/2025 7:50 AM EDT Impressions 05/06/2025 7:51 AM EDT No acute pulmonary disease. Code 67848 -------- FINAL REPORT -------- Dictated By: Reji Nicholson Dictated Date: 05/06/2025 07:50 ET Assigned Physician: Reji Nicholson Reviewed and Electronically Signed By: Reji Nicholson Signed Date: 05/06/2025 07:51 ET Workstation ID: [id number] Transcribed By: Self Edit Transcribed Date: 05/06/2025 [...] clear. IMPRESSION: No acute pulmonary disease. Code 77749 -------- FINAL REPORT -------- Dictated By: Reji Nicholson Dictated Date: 05/06/2025 07:50 ET Assigned Physician: Reji Nicholson Reviewed and Electronically Signed By: Reji Nicholson Signed Date: 05/06/2025 07:51 ET Workstation ID: [id number] Transcribed By: Self Edit Transcribed Date: 05/06/2025 07:50 ET Makenzie Rodriguez MD IMG XR PROCEDURES Final Result * ECG 12 lead (05/05/2025 2:34 PM EDT) Ventricular Rate ECG 78 BPM GEMUSE Atrial Rate 78 BPM GEMUSE P-R Interval 170 ms GEMUSE QRS Duration 86 ms GEMUSE Q-T Interval 356 ms GEMUSE QTc 405 ms GEMUSE P Wave [place] 46 degrees GEMUSE R [place] -49 degrees GEMUSE T [place] 17 degrees GEMUSE ECG Interpretation Normal sinus rhythm Left anterior fascicular block Minimal voltage criteria for LVH, may be normal variant ( R in aVL ) Possible Anterior infarct , age undetermined Abnormal ECG No previous ECGs available Confirmed by Claudine MINA JAMES ([id number]) on 05/05/2025 4:35:36 PM GEMUSE 05/05/2025 2:34 PM EDT 05/05/2025 4:35 PM EDT Makenzie Rodriguez MD ECG ORDERABLES Final R esult GEMUSE * (ABNORMAL) CBC auto differential (05/05/2025 2:18 PM EDT) Pathologist [facility] WBC 5.5 4.8 - 10.8 K/mcL LAB HEMETOLOGY METHOD 05/05/2025 4:28 PM EDT [facility] RBC 4.30(L) 4.50 - 5.50 M/mcL LAB HEMETOLOGY METHOD 05/05/2025 4:28 PM EDT [facility] Hemoglobin 12.5(L) 13.5 - 17.5 g/dL LAB HEMETOLOGY METHOD 05/05/2025 4:28 PM EDT [facility] Hematocrit 38.7(L) 42.0 - 54.0 % LAB HEMETOLOGY METHOD 05/05/2025 4:28 PM EDT [facility] MCV 89.2 79.0 - 98.0 FL LAB HEMETOLOGY METHOD 05/05/2025 4:28 PM EDT [facility] MCH 28.8 27.0 - 32.0 pcg LAB HEMETOLOGY METHOD 05/05[facility]2025 [facility] MCHC 32.3 32.0 - 37.0 g/dL LAB HEMETOLOGY METHOD 05/05/2025 4:28 PM EDT [facility] RDW 12.7 11.0 - 15.0 % LAB HEMETOLOGY METHOD 05/05/2025 4:[facility] Platelets 330 130 - 400 K/mcL LAB HEMETOLOGY METHOD 05/05/2025 4:28 [facility] MPV 9.8 7.0 - 11.0 FL LAB HEMETOLOGY METHOD 05/05/2025 4:28 PM EDT [facility] NRBC 0.0 <1.0 % LAB HEMETOLOGY METHOD 05/05/2025 4:28 [facility] NRBC Absolute 0.00 <0.10 K/mcL LAB HEMETOLOGY METHOD 05/05/2025 4:28 PM [facility] Neutrophils Relative 45.6 % LAB HEMETOLOGY METHOD 05/05/2025 4:28 PM EDT [facility] Lymphocytes Relative 44.2 % LAB HEMETOLOGY METHOD 05/05/2025 4:28 [facility] Monocytes Relative 6.3 % LAB HEMETOLOGY METHOD 05/05/2025 4:28 PM [facility] Eosinophils Relative 3.3 % LAB HEMETOLOGY METHOD 05/05/2025 4:28 PM [facility] Basophils Relative 0.4 % LAB HEMETOLOGY METHOD 05/05/2025 4:28 PM EDT [facility] Immature Granulocytes Relative 0.2 % LAB HEMETOLOGY METHOD 05/05/2025 4:28 PM EDT [facility] Neutrophils Absolute 2.52 1.50 - 7.00 K/mcL LAB HEMETOLOGY METHOD 05/05/2025 4:28 PM EDT [facility] Lymphocytes Absolute 2.44 1.00 - 5.00 K/mcL LAB HEMETOLOGY METHOD 05/05/2025 4:28 PM EDT [facility] Monocytes Absolute 0.35 0.20 - 1.00 K/mcL LAB HEMETOLOGY METHOD 05/05/2025 4:28 PM EDT [facility] Eosinophils Absolute 0.18 0.00 - 0.50 K/mcL LAB HEMETOLOGY METHOD 05/05/2025 4:28 PM EDT [facility] Basophils Absolute 0.02 0.00 - 0.20 K/mcL LAB HEMETOLOGY METHOD 05/05/2025 4:28 PM EDT [facility] Immature Granulocytes Absolute 0.01 0.00 - 0.03 K/mcL LAB HEMETOLOGY METHOD 05/05/2025 4:28 PM EDT [facility] Blood Venous blood specimen / Unknown Venipuncture / Unknown 05/05/2025 2:18 PM EDT 05/05/2025 4:17 PM EDT us Makenzie Rodriguez MD LAB BLOOD ORDERABLES Fi nal Result [facility] [address] [place] [address], * Type and screen (05/05/2025 2:18 PM EDT) ABO Group O 05/06/2025 9:10 AM EDT [facility] Rh Type Positive 05/06/2025 9:10 AM EDT [facility] Antibody Screen Negative 05/06/2025 9:10 AM [facility] Blood Venous blood specimen / Unknown Venipuncture / Unknown 05/05/2025 2:18 PM EDT 05/05/2025 4:17 PM EDT us Makenzie Rodriguez MD LAB BLOOD BANK TEST ORD ERABLES Final Result [facility] [address] [place] [address], * (ABNORMAL) CMP (05/05/2025 2:18 PM EDT) Sodium 139 133 - 145 mmol/L LAB CHEMISTRY METHOD 05/05/2025 4:42 PM [facility] Potassium 4.9 3.5 - 5.5 mmol/L LAB CHEMISTRY METHOD 05/05/2025 4:42 PM [facility] Chloride 105 96 - 110 mmol/L LAB CHEMISTRY METHOD 05/05/2025 4:42 PM [facility] CO2 29 21 - 32 mmol/L LAB CHEMISTRY METHOD 05/05/2025 4:42 PM [facility] Anion Gap 5 3 - 11 LAB CHEMISTRY METHOD 05/05/2025 4:42 PM [facility] Glucose 119(H) 70 - 100 mg/dL LAB CHEMISTRY METHOD 05/05/2025 4:42 PM [facility] BUN 21 5 - 25 mg/dL LAB CHEMISTRY METHOD 05/05/2025 4:42 PM [facility] Creatinine 1.44(H) 0.70 - 1.30 mg/dL LAB CHEMISTRY METHOD 05/05/2025 4:42 PM [facility] eGFR 63 >=60 mL/min/1. 73m2 LAB CHEMISTRY METHOD 05/05/2025 4:42 PM T [facility] Comment:Calculation based on the Chronic Kidney Disease Epidemiology Collaboration (CKD-EPI) equation refit without adjustment for race. BUN/Creatinine Ratio 14.6 LAB CHEMISTRY METHOD 05/05/2025 4:42 PM EDT [facility] Calcium 9.3 8.5 - 10.5 mg/dL LAB CHEMISTRY METHOD 05/05/2025 4:42 PM EDT [facility] AST (SGOT) 20 10 - 42 unit/L LAB CHEMISTRY METHOD 05/05/2025 4:42 PM [facility] ALT (SGPT) 30 10 - 60 unit/L LAB CHEMISTRY METHOD 05/05/2025 4:42 PM [facility] Alkaline Phosphatase 128(H) 42 - 121 unit/L LAB CHEMISTRY METHOD 05/05/2025 4:[facility] Total Protein 6.8 6.0 - 8.0 g/dL LAB CHEMISTRY METHOD 05/05/2025 4:42 PM [facility] Albumin 3.5 3.2 - 5.0 g/dL LAB CHEMISTRY METHOD 05/05/2025 4:42 PM [facility] Total Bilirubin 0.7 0.0 - 1.4 mg/dL LAB CHEMISTRY METHOD 05/05/2025 4:42 PM [facility] Blood Venous blood specimen / Unknown Venipuncture / Unknown 05/05/2025 2:18 PM EDT 05/05/2025 4:17 PM EDT us Makenzie Rodriguez MD LAB BLOOD ORDERABLES Fi nal Result [facility] [address] [place] [address], [place] [phone] from Last 3 Months Additional Health Concerns Active Problems Noted Date Diagnosed Date Autogenerated Problem 05/04/2025 Insurance [facility] Care Teams Heating Element Builder Relationship Specialty Start Date End Date Clay Guevara PA [address] [place] [phone] PCP - General Physician Compliance Aide 01/05/25
== END 2025-05-07 15:34 | disposition home or self-care (01) ==
LOC: HO.HPODS 14:54
PROVIDERS: PCP Physician Assistant; Visit Provider Student in an Organized Health Care Education/Training Program
DX: E11.8 Type 2 diabetes mellitus with unspecified complications (principal); M79.89 Other specified soft tissue disorders; S88.911A Complete traumatic amputation of right lower leg, level unspecified, initial encounter; B35.9 Dermatophytosis, unspecified
CPT/HCPCS: 11720; 99203

== ENCOUNTER → 2025-05-07 14:53 | Outpatient (BNVA) | payer OTHER, SELFPAY | PROVIDERS: PCP Physician Assistant; Visit Provider Student in an Organized Health Care Education/Training Program | DX: E11.8 Type 2 diabetes mellitus with unspecified complications (principal); M79.89 Other specified soft tissue disorders; B35.1 Tinea unguium; E11.22 Type 2 diabetes mellitus with diabetic chronic kidney disease; N18.9 Chronic kidney disease, unspecified; I69.351 Hemiplegia and hemiparesis following cerebral infarction affecting right dominant side; Z89.511 Acquired absence of right leg below knee | CPT/HCPCS: 11720; 99202 ==

== ENCOUNTER 2025-05-12 14:15 | Outpatient (AMB) | payer OTHER, SELFPAY ==
--- OUTSIDE RECORDS SUMMARY | 2025-05-07 11:00 | XMS_ITS | Encounter Summary ---
Author Organization [facility] Address [address] [place] [address] Care Team Providers Care Lens And Frames Prescription Clerk Name Role Phone Clay Guevara Primary Care Provider [phone] Reason for Visit * Reason Comments Obesity Encounter Details Date Type Department Care Team ([facility] st Contact Info) Description 05/07/2025 11:00 AM EDT Consult Bariatric Surgery - [address] [phone] Carmel Blake, CASIMIRO [address] [address] Class 3 severe obesity with [...] in this encounter Progress Notes * Carmel Blake RD - 05/07/2025 11:00 AM EDT Start pre-op diet today (14 days prior to surgery date 05/21/25 Over the counter medications and supplements (not covered by insurance) Further details can be found in your binder -Oral Bariatric multi-vitamin or multivitamin patch ([email or web address].[email or web address])- Will not need additional calcium citrate below with patch -Calcium Citrate 600mg with Vitamin D3 (taken separately from multi-vitamin) -Simethicone (Gas-x) -Benefiber (for constipation) -Tylenol -Miralax (for constipation) * Carmel Blake RD - 05/07/2025 11:00 AM EDT INITIAL NUTRITION CONSULT Patient Name: Jerome Gómez Date of : 1985 Date of Service: 05/07/2025 SURGEON: Makenzie Rodriguez MD DESIRED SURGERY: Gastric Sleeve Pt completed [place] program, surgery was cancelled in OR, pt [...] joined Y for pool exercises 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 Ht Readings from Last [...] Dines out: yes too much chicken [facility] History of disordered eating: Did not discuss [...] binder -Oral Bariatric multi-vitamin or multivitamin patch (patchaid.[email or web address])- Will not need additional calcium citrate below [...] hypertension, benign (05/17/07), Morbid obesity (CMS/HCC V24, CMS/[facility] V28) (04/18/2005), Other and unspecified hyperlipidemia (04/18/2005), 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), Reflux (07/27/07), Type 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, uncontrolled(250.42) (CMS/[facility] V24, CMS/[facility] V28) (02/01/2007), and Type II or unspecified [...] type diabetes mellitus with renal manifestations, uncontrolled(250.42) (CMS/[facility] V24, CMS/[facility] V28) 02/01/2007 DX:Type 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, uncontrolled(250.42) ([facility]) Type II or unspecified type diabetes mellitus without mention of complication, not stated as uncontrolled 04/18/2005 DX:Type II or unspecified type diabetes mellitus without mention of complication, not stated as uncontrolled [2] Patient Active Problem List Diagnosis Morbid obesity with BMI of 45.0-49.9, adult ([facility] V24, [facility] V28) [3] Past Surgical History: Procedure Laterality [...] 05/19/2025 1:15 PM EDT Consult Bariatric Surgery [address] [phone] Makenzie Rodriguez MD [address] [place] [phone] 05/21/2025 10:00 AM EDT Hospital Encounter [address] [phone] Makenzie Rodriguez MD [address] [place] [phone] 05/21/2025 10:00 AM EDT - 05/21/2025 12:30 PM EDT Surgery [address] [phone] Makenzie Rodriguez MD [address] [place] [phone] DAVINCI SLEEVE GASTRECTOMY [37600 (CPT )] 06/08/2025 11:15 AM EST Office Visit Bariatric Surgery [address] [phone] Makenzie Rodriguez MD [address] [place] [phone] 06/16/2025 8:00 AM EST Appointment [facility] Nuclear Medicine [address] [place] [phone] 06/23/2025 11:00 AM EST Telemedicine Bariatric Surgery - [place] [facility] [address] [place] [address] Carmel Blake, RD 175 [facility] [address] [place] [phone] 08/03/2025 1:00 PM EST Office Visit Bariatric Surgery - [place] [address] [phone] Makenzie Rodriguez MD [address] [place] [phone] Scheduled Procedures Name Priority Associated Diagnoses Date/Ti me GASTRECTOMY SLEEVE ROBOT Morbid obesity with BMI of 45.0-49.9, adult ([facility] V24, [facility] V28) 05/21/2025 10:00 AM EDT documented as of this encounter Goals Goal Patient Goal Type Associated Problems Recent Progress Patient-Stated? Author Autogenera geetha Goal Care Plan Autogenerated Problem No Makenzie Rodriguez MD documented as of this encounter Visit Diagnoses Diagnosis Morbid obesity with BMI of 45.0-49.9, adult ([facility] V24, CMS/[facility] V28)- Primary Class 3 severe obesity with serious comorbidity and body mass index (BMI) of 45.0 to 49.9 in adult, unspecified obesity type ([facility] V24, CMS/[facility] V28)- Primary Morbid obesity with BMI of 45.0-49.9, adult ([facility] V24, CMS/[facility] V28) documented in this encounter Additional Health Concerns Active Problems Noted Date Diagnosed Date Autogenerated Problem 05/04/2025 documented as of this encounter Care Teams Lens And Frames Prescription Clerk Relationship Specialty Start Date End Date Clay Guevara PA [address] [place] [phone] PCP - General Physician Reference Librarian 01/05/25 documented as of this encounter
--- NOTE | 2025-05-12 14:18 | A.OFFVIS_ITS ---
Vital Signs 05/12/25 14:31 Height 5 ft 9 in BMI Reason not done Patient refused/unable BP 124/80 Blood Pressure Location Rt brachial Position Sitting Pulse 83 Pulse Source Pulse Oximeter Pulse Oximetry (%) 97 Oxygen Delivery Method Room Air Intake Visit Reasons: telehealth OK Type II DM med check Intake Note: Patient present today to follow up on Type 2 Diabetes Mellitus. Last Diabetic Eye exam: 05/2024 Last Podiatry Visit: Needs a referral Random Glucose: 176 mg/dL Hgb A1C: 6.4%, 05/12/2025 Pantograph Transferrer Required: No Accompanied by: Self / Same As Patient Allergies NSAIDS (Non-Steroidal Anti-Inflamma Allergy (Unknown, Verified 05/12/25 14:21) Unknown sulfamethoxazole (From Bactrim) Adverse Reaction (Intermediate, Verified 05/12/25 14:21) Elevated renal functions trimethoprim (From Bactrim) Adverse Reaction (Intermediate, Verified 05/12/25 14:21) Elevated renal functions Medication List - Last Reconciled 05/12/25 by RONY Moore acetaminophen ER 1,300 mg (2 x 650 mg) PO Q8H PRN 90 days alcohol swabs 1 pad topical QID aspirin (Adult Aspirin Regimen) 81 mg PO DAILY 90 days atorvastatin 80 mg PO BEDTIME 30 days [BARIATRIC WALKER As directed] blood pressure kit-extra large As directed blood pressure monitor As directed blood sugar diagnostic (FreeStyle Lite Strips) As directed blood sugar diagnostic (FreeStyle Lite Strips) USE TO TEST FINGER STICK BLOOD SUGAR 4 (FOUR) TIMES DAILY blood-glucose sensor ([employer] G7 Sensor device) As directed change every 10 days carvedilol 25 mg PO BID chair, wheel (Wheel chair) LIFETIME USE cholecalciferol (vitamin D3) (Vitamin D3) 25 mcg PO DAILY emtricitabine-tenofovir alafen 200-25 mg (Descovy) 1 tab PO DAILY 30 days famotidine 20 mg PO BEDTIME ferrous sulfate 325 mg PO DAILY furosemide 40 mg (2 x 20 mg) PO DAILY 30 days gabapentin 800 mg PO TID 30 days glucose (Dex4 Glucose Quick Dissolve) 16 grams (4 x 4 gram) PO Q15M PRN hydralazine 100 mg PO BID incontinence pad, liner, disp As directed insulin degludec (Tresiba FlexTouch U-200 insulin) 70 units (0.35 mL) subcut BEDTIME 30 days insulin lispro (Humalog KwikPen U-200 Insulin) subcutaneously 2 times a day; 4 units before breakfast and 42 units before dinner lancets As directed lancets (Easy Touch Lancets) As directed 3 times daily lancets (True Comfort Lancet) As directed latex gloves (Latex Gloves, Large) As directed lisinopril 1 tab PO DAILY [manual wheel chair As directed with adjustable leg rests ] melatonin 10 mg PO DAILY miscellaneous medical supply 1 ea miscellaneous DAILY 90 days nifedipine ER 90 mg PO DAILY 90 days omeprazole 20 mg PO BID pen needle, diabetic As directed [Power wheel chair As directed] [Replacement prosthesis for right lower extremity As directed] semaglutide (Ozempic) 0.5 mg (0.736 mL) subcut QWEEK spironolactone 25 mg PO DAILY 90 days sucralfate 10 mL PO BID tramadol 50 mg PO TID PRN 30 days walker (Ultra-Light Rollator misc) As directed [Walker repair As directed] HPI Comments Details: This is a 39-year-old male with a past medical history of type 2 diabetes, fatty liver disease, lymphedema, peripheral arterial disease, CKD stage 3, hypertension, obesity, NOLAN, GERD, CVA, hyperlipidemia and vitamin-D deficiency presenting for diabetic management. He was initially diagnosed with type 2 diabetes at the age of 14. Current medication regimen: Tresiba 70 units at bedtime, Humalog 38 units before dinner He ran out of stickK a month ago. I prescribed Ozempic in place of this after our last discussion, and we are waiting to hear if the insurance will approve it after an appeal. Past medication: Was initially on metformin and glyburide and began using insulin at age 20. Bariatric surgery is scheduled at [facility] on 05/21/25. [place] [facility] [place] Reviewed Dexcom G IA 7.6% Very high 14% 29% high 56% in range 1% low He has a rare hypoglycemia overnight and he has hyperglycemia after breakfast and dinner. He is eating more solid foods now. His hemoglobin A1c is 6.4% today 05/12/2025. Hypoglycemia: He had 1 low blood sugar overnight. Hyperglycemia symptoms: None Diabetic complications: Retinopathy, neuropathy, nephropathy (CKD and m icroalbuminuria), atherosclerotic vascular disease. CAD, CVA, Right BKA 8 years ago. ROS: Constitutional: No unexplained weight loss, fever, chills, fatigue or night sweats. Respiratory: No shortness of breath Cardiovascular: No chest pain Neurologic: No headache or dizziness Endocrine: No cold or heat intolerance. No polyuria or polydipsia. Physical exam: Constitutional: Alert, in no distress. Neck: Supple, Full range of motion. No lymphadenopathy. No palpable thyroid masses. Respiratory: Clear to auscultation. Cardiovascular: S1 S2 regular. No murmurs Neurologic: No focal neurological deficits. Extremities: Left lower extremity edema, right BKA. Psychiatric: Normal mood and affect [facility] Medical History Acute respiratory disease Depression Insomnia Anxiety DJD (degenerative joint disease) Sleep apnea treated with continuous positive airway pressure (CPAP) Arthritis PAD (peripheral artery disease) CKD (chronic kidney disease) Exposure to bloodborne pathogen Abnormal stress test History of stroke Morbid obesity NOLAN (obstructive sleep apnea) HTN (hypertension) Right below-knee amputee Blind left eye Neuropathy CVA (cerebral vascular accident) (~2018) Sleep apnea Obesity Vitamin D deficiency HLD (hyperlipidemia) GERD (gastroesophageal reflux disease) Below knee amputation Type 2 diabetes mellitus Surgical History History of esophagogastroduodenoscopy (EGD) (10/15/24) Hx of eye surgery History of amputation of right foot Family History Mother Diabetes Father Prostate cancer Paternal Aunt Diabetes Brother No problems noted. Brother No problems noted. Brother No problems noted. Brother No problems noted. Brother No problems noted. Sister No problems noted. Social History Household Members: None Housing: Apartment Are you a primary animal caregiver to a significant other at home: No Do you presently have visiting nurse or other home services: Yes (SKIDDER OPERATOR daily) 75 years or older and lives alone: No Alcohol intake: never Patient Tobacco Use Status: Never used Tobacco e-Cigarette/Vaping Use: Never Used Second Hand Smoke Exposure: No service: No Current occupational status: disabled Cognitive needs: Yes (walk, wheelchair (w/c weighs 360lbs)) Hearing needs: No Vision needs: Yes (glasses) Physical Exam Vital Signs: Last Vital Signs Pulse 83 05/12/25 14:31 BP 124/80 05/12/25 14:31 Pulse Ox 97 05/12/25 14:31 Oxygen Delivery Method Room Air 05/12/25 14:31 Office Procedures Glucose Monitoring Details Details: See [facility] [address] - Glucose monitoring, continuous-physician I&R Procedure code (CPT) selection complete Results AMB Hemoglobin A1c AMB Hemoglobin A1c 6.4 % Last Edit by YUNI Carr on 05/12/25 14:52 Results Reviewed Results Reviewed: Laboratory Last Values Glucose (Clinic) 176 mg/dL (60-115) H 05/12/25 14:32 Laboratory Tests 09/15/20 06/16/24 02/17/25 09:00 12:07 12:22 Plt Count 334 Creatinine 1.50 H Estimated GFR 52 AST 31 ALT 33 Triglycerides 161 H Cholesterol 115 HDL Cholesterol 23 L TSH 1.48 Microalb/Creat Ratio 875.4 H Islet Cell Ab Screen NEGATIVE KAMALA Antibody <5 Assessment & Plan Assessment & Plan (1) Type 2 diabetes mellitus with unspecified complications: Code(s): E11.8 - Type 2 diabetes mellitus with unspecified complications Category: Medical (2) HTN (hypertension): Code(s): I10 - Essential (primary) hypertension Category: Medical Qualifiers: Hypertension type: essential hypertension Qualified Code(s): I10 - Essential (primary) hypertension (3) PAD (peripheral artery disease): Code(s): I73.9 - Peripheral vascular disease, unspecified Category: Medical (4) Morbidly obese: Code(s): E66.01 - Morbid (severe) obesity due to excess calories Category: Medical Plan Patient's hemoglobin A1c is less than 7% however his GMI has increased after coming off Zepbound and he is having some postprandial episodes of hypoglycemia. Continue Tresiba 70 units at bedtime Take Humalog 4 units before breakfast Increase Humalog to 42 units before dinner Insurance appeal is processing for Caren. He has bariatric surgery scheduled 05/21/2025. He will not start the GLP 1 prior to surgery. If you experience low blood sugar, treat this by eating a chewable fruit candy like skittles or jelly beans (about 8 pieces), 4 ounces (1/2 cup) of fruit juice (not diet), 1 tablespoon of honey or 4 glucose tablets. If your blood sugar is under 50, take double the amount of one of the above. Recheck your blood sugar in 15 minutes. Hypertension is well-controlled. Continue current regimen. Continue atorvastatin 80 mg. Recommended low-cholesterol diet. Avoid full fat dairy products and red meat. Follow up in 3 months for type 2 diabetes. Orders: Orders AMB Hemoglobin A1c Today E11.8 - Type 2 diabetes mellitus with unspecified complications AMB Glucose Monitoring Today E11.9 - Type 2 diabetes mellitus without complications Patient Instructions: Continue Tresiba 70 units at bedtime Take Humalog 4 units before breakfast Increase Humalog 42 units before dinner If you experience low blood sugar, treat this by eating a chewable fruit candy like skittles or jelly beans (about 8 pieces), 4 ounces (1/2 cup) of fruit juice (not diet), 1 tablespoon of honey or 4 glucose tablets. If your blood sugar is under 50, take double the amount of one of the above. Recheck your blood sugar in 15 minutes. Coding Level of Care Code Est Pt Level 4 (73613) Diagnoses Type 2 diabetes mellitus with unspecified complications E11.8 Essential hypertension I10 Hypertension type: essential hypertension PAD (peripheral artery disease) I73.9 Morbidly obese E66.01 CPT Codes Details - CPT: 06906 - Glucose monitoring, continuous-physician I&R ([id number])
[2025-05-12 14:31] VITALS: BP 124/80; PULSE 83; O2SAT 97
[2025-05-12 14:36] LABS: Glucose, Whole Blood 176 mg/dL (60-115)
--- OUTSIDE RECORDS SUMMARY | 2025-05-12 17:33 | XMS_ITS | Clinical Summary ---
Author Organization [facility] Address [address] [place] [address] Phone Care Team Providers Care Inventory Associate Name Role Phone Clay Guevara Primary Care [...] (BMI) of 45.0 to 49.9 in adult ([facility] V24, [facility] V28) 05/07/2025 Morbid obesity with BMI of 4 5.0-49.9, adult ([facility] V24, [facility] V28) 04/17/2025 Encounters Date Type Department Care Team Description 05/07/2025 11:00 AM EDT Consult Bariatric Surgery [address] [phone] Carmel Blake, CASIMIRO Class 3 severe obesity with serious comorbidity and body mass index (BMI) of 45.0 to 49.9 in adult, unspecified obesity type ([facility] V24, [facility] V28) (Primary Dx) 05/05/2025 2:40 PM EDT - 05/05/2025 11:59 PM EDT Hospital Encounter [facility] [address] [place] [address] Discharge Disposition: Home or Self Care 04/15/2025 2:30 PM EDT Office Visit Bariatric Surgery [facility] [address] [phone] Makenzie Rodriguez MD Gastroparesis (Primary Dx); Obesity, Class III, BMI 40-49.9 (morbid obesity); Sleep apnea, unspecified type; Type 2 diabetes mellitus with obesity ([facility] V24, [facility] V28); Primary hypertension; Gastroesophageal reflux disease, unspecified whether esophagitis present from Last 3 Months Surgical History Surgery Date Site/Laterality Comments EYE SURGERY RETINAL DETACHMENT AMPUTATION [facility] Medical History Medical History Date Comments Other and unspecified hyperlipidemia 04/18/2005 DX:Other and unspecified hyperlipidemia Morbid obesity ([facility] V24, [facility] V28) 04/18/2005 DX:Morbid obesity ([facility]) Type II or unspecified type diabetes mellitus without mention of complication, not stated as uncontrolled 04/18/2005 DX:Type II or unspecified ty pe diabetes mellitus without mention of complication, not stated as uncontrolled Type 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, uncontrolled(250.42) ([facility] V24, [facility] V28) 02/01/2007 DX:Type II or unspecified ty pe diabetes mellitus with renal manifestations, uncontrolled(250.42) ([facility]) Reflux 07/27/07 DX:Reflux Essential hypertension, benign 05/17/07 [...] 05/19/2025 1:15 PM EDT Consult Bariatric Surgery [facility] [address] [phone] Makenzie Rodriguez MD [address] [place] [phone] 05/21/2025 10:00 AM EDT Hospital Encounter [facility] Main HI [address] [place] [phone] Makenzie Rodriguez MD [address] [place] [phone] 05/21/2025 10:00 AM EDT - 05/21/2025 12:30 PM EDT Surgery [address] [phone] Makenzie Rodriguez MD [address] [place] [phone] DAVINCI SLEEVE GASTRECTOMY [62473 (CPT )] 06/08/2025 11:15 AM EST Office Visit Bariatric Surgery [facility] [address] [phone] Mkaenzie Rodriguez MD [address] [place] [phone] 06/16/2025 8:[address] [facility] Nuclear Medicine [address] [place] [phone] 06/23/2025 11:00 AM EST Telemedicine Bariatric Surgery [facility] [address] [phone] Carmel Blake, RD 175 [facility] [address] [place] [address] 08/03/2025 1:00 PM EST Office Visit Bariatric Surgery - [place] 175 [facility] [address] [place] [address] Makenzie Rodriguez MD [address] [place] [phone] Scheduled Procedures Name Priority Associated [...] 5 season) 2025 Influenza Vaccine (#1) 2025 4, 05/21/2023 Diabetes: Annual GFR (Glomerular Filtration Rate) [...] Morbid obesity with BMI of 45.0-49.9, adult ([facility] V24, [facility] V28) from Last 3 Months Results * XR Chest 2 Views (05/05/2025 2:55 PM EDT) Anatomical Region Laterality Modality Body Radiographic Anastacia ging 05/06/2025 7:50 AM EDT Impressions 05/06/2025 7:51 AM EDT No acute pulmonary disease. Code 86014 -------- FINAL REPORT -------- Dictated By: Reji Nicholson Dictated Date: 05/06/2025 07:50 ET Assigned Physician: Reji Nicholson Reviewed and Electronically Signed By: Reji Nicholson Signed Date: 05/06/2025 07:51 ET Workstation ID: [id number] Transcribed By: Self Edit Transcribed Date: 05/06/2025 [...] clear. IMPRESSION: No acute pulmonary disease. Code 56716 -------- FINAL REPORT -------- Dictated By: Reji Nicholson Dictated Date: 05/06/2025 07:50 ET Assigned Physician: Reji Nicholson Reviewed and Electronically Signed By: Reji Nicholson Signed Date: 05/06/2025 07:51 ET Workstation ID: [id number] Transcribed By: Self Edit Transcribed Date: 05/06/2025 07:50 ET us Makenzie Rodriguez MD IMG XR PROCEDURES Final Result * ECG 12 lead (05/05/2025 2:34 PM EDT) Ventricular Rate ECG 78 BPM GEMUSE Atrial Rate 78 BPM GEMUSE P-R Interval 170 ms GEMUSE QRS Duration 86 ms GEMUSE Q-T Interval 356 ms GEMUSE QTc 405 ms GEMUSE P Wave Endeavor 46 degrees GEMUSE R Endeavor -49 degrees GEMUSE T Endeavor 17 degrees GEMUSE ECG Interpretation Normal sinus rhythm Left anterior fascicular block Minimal voltage criteria for LVH, may be normal variant ( R in aVL ) Possible Anterior infarct , age undetermined Abnormal ECG No previous ECGs available Confirmed by Claudine MINA JAMES ([id number]) on 05/05/2025 4:35:36 PM GEMUSE 05/05/2025 2:34 PM EDT 05/05/2025 4:35 PM EDT us Makenzie Rodriguez MD ECG ORDERABLES Final R esult GEMUSE * (ABNORMAL) CBC auto differential (05/05/2025 2:18 PM EDT) Pathologist [facility] WBC 5.5 4.8 - 10.8 K/mcL LAB HEMETOLOGY METHOD 05/05/2025 4:28 PM EDT [facility] RBC 4.30(L) 4.50 - 5.50 M/mcL LAB HEMETOLOGY METHOD 05/05/2025 4:28 PM EDT [facility] Hemoglobin 12.5(L) 13.5 - 17.5 g/dL LAB HEMETOLOGY METHOD 05/05/2025 4:28 PM EDT [facility] Hematocrit 38.7(L) 42.0 - 54.0 % LAB HEMETOLOGY METHOD 05/05/2025 4:28 PM EDT [facility] MCV 89.2 79.0 - 98.0 FL LAB HEMETOLOGY METHOD 05/05/2025 4:28 PM EDT [facility] MCH 28.8 27.0 - 32.0 pcg LAB HEMETOLOGY METHOD 05/05/2025 4:28 PM EDT [facility] MCHC 32.3 32.0 - 37.0 g/dL LAB HEMETOLOGY METHOD 05/05/2025 4:28 PM EDT [facility] RDW 12.7 11.0 - 15.0 % LAB HEMETOLOGY METHOD 05/05/2025 4:28 PM EDT [facility] Platelets 330 130 - 400 K/mcL LAB HEMETOLOGY METHOD 05/05/2025 4:28 PM EDT [facility] MPV 9.8 7.0 - 11.0 FL LAB HEMETOLOGY METHOD 05/05/2025 4:28 PM EDT [facility] NRBC 0.0 <1.0 % [facility]OLOGY [facility] NRBC Absolute 0.00 <0.10 K/mcL LAB HEMETOLOGY METHOD 05/05[facility]2025 [facility] Neutrophils Relative 45.6 % LAB HEMETOLOGY METHOD 05/05/2025 4:28 PM EDT [facility] Lymphocytes Relative 44.2 % LAB HEMETOLOGY METHOD 05/05/2025 4:28 PM EDT [facility] Monocytes Relative 6.3 % LAB HEMETOLOGY METHOD [facility]25 [facility] Eosinophils Relative 3.3 % LAB HEMETOLOGY METHOD 05/05/2025 4:28 PM EDT [facility] Basophils Relative 0.4 % LAB HEMETOLOGY METHOD 05/05/2025 4:28 PM EDT [facility] Immature Granulocytes Relative 0.2 % LAB HEMETOLOGY METHOD 05/05/2025 4:28 PM EDT [facility] Neutrophils Absolute 2.52 1.50 - 7.00 K/mcL LAB HEMETOLOGY METHOD 05/05/2025 4:28 PM EDT [facility] Lymphocytes Absolute 2.44 1.00 - 5.00 K/mcL LAB HEMETOLOGY METHOD 05/05/2025 4:28 PM EDT [facility] Monocytes Absolute 0.35 0.20 - 1.00 K/mcL LAB HEMETOLOGY METHOD 05/05/2025 4:28 PM EDT [facility] Eosinophils Absolute 0.18 0.00 - 0.50 K/mcL LAB HEMETOLOGY METHOD 05/05/2025 4:28 PM EDT [facility] Basophils Absolute 0.02 0.00 - 0.20 K/mcL LAB HEMETOLOGY METHOD 05/05/2025 4:28 PM EDT [facility] Immature Granulocytes Absolute 0.01 0.00 - 0.03 K/mcL LAB HEMETOLOGY METHOD 05/05/2025 4:28 PM EDT [facility] Blood Venous blood specimen / Unknown Venipuncture / Unknown 05/05/2025 2:18 PM EDT 05/05/2025 4:17 PM EDT us Makenzie Rodriguez MD LAB BLOOD ORDERABLES Fi nal Result [facility] [address] [place] [address], * Type and screen (05/05/2025 2:18 PM EDT) ABO Group O 05/06/2025 9:10 AM EDT [facility] Rh Type Positive 05/06/2025 9:10 AM EDT [facility] Antibody Screen Negative 05/06/2025 9:[address] [facility] Blood Venous blood specimen / Unknown Venipuncture / Unknown 05/05/2025 2:18 PM EDT 05/05/2025 4:17 PM EDT us Makenzie Rodriguez MD LAB BLOOD BANK TEST ORD ERABLES Final Result [facility] [address] [place] [address], * (ABNORMAL) CMP (05/05/2025 2:18 PM EDT) Sodium 139 133 - 145 mmol/L LAB CHEMISTRY METHOD 05/05/2025 4:[address] [facility] Potassium 4.9 3.5 - 5.5 mmol/L LAB CHEMISTRY METHOD 05/05/2025 4:[address] [facility] Chloride 105 96 - 110 mmol/L LAB CHEMISTRY METHOD 05/05/2025 4:[address] [facility] CO2 29 21 - 32 mmol/L LAB CHEMISTRY METHOD 05/05/2025 4:[address] [facility] Anion Gap 5 3 - 11 LAB CHEMISTRY METHOD 05/05/2025 4:[address] [facility] Glucose 119(H) 70 - 100 mg/dL LAB CHEMISTRY METHOD 05/05/2025 4:[address] [facility] BUN 21 5 - 25 mg/dL LAB CHEMISTRY METHOD 05/05/2025 4:[address] [facility] Creatinine 1.44(H) 0.70 - 1.30 mg/dL LAB CHEMISTRY METHOD 05/05/2025 4:[address] [facility] eGFR 63 >=60 mL/min/1. 73m2 LAB CHEMISTRY METHOD 05/05/2025 4:42 PM EDT [facility] Comment:Calculation based on the Chronic Kidney Disease Epidemiology Collaboration (CKD-EPI) equation refit without adjustment for race. BUN/Creatinine Ratio 14.6 LAB CHEMISTRY METHOD 05/05/2025 4:42 PM EDT [facility] Calcium 9.3 8.5 - 10.5 mg/dL LAB CHEMISTRY METHOD 05/05/2025 4:42 PM T [facility] AST (SGOT) 20 10 - 42 unit/L LAB CHEMISTRY METHOD 05/05/2025 4:[address] [facility] ALT (SGPT) 30 10 - 60 unit/L LAB CHEMISTRY METHOD 05/05/2025 4:[address] [facility] Alkaline Phosphatase 128(H) 42 - 121 unit/L LAB CHEMISTRY METHOD 05/05/2025 4:[address] [facility] Total Protein 6.8 6.0 - 8.0 g/dL LAB CHEMISTRY METHOD 05/05/2025 4:[address] [facility] Albumin 3.5 3.2 - 5.0 g/dL LAB CHEMISTRY METHOD 05/05/2025 4:[address] [facility] Total Bilirubin 0.7 0.0 - 1.4 mg/dL LAB CHEMISTRY METHOD 05/05/2025 4:[address] [facility] Blood Venous blood specimen / Unknown Venipuncture / Unknown 05/05/2025 2:18 PM EDT 05/05/2025 4:17 PM EDT us Makenzie Rodriguez MD LAB BLOOD ORDERABLES Fi nal Result [facility] [address] [place] [address], [place] [phone] from Last 3 Months Additional Health Concerns Active Problems Noted Date Diagnosed Date Autogenerated Problem 05/04/2025 Insurance [facility] [employer] Care Teams Inventory Associate Relationship Specialty Start Date End Date Clay Guevara PA [address] [place] [phone] PCP - General Physician Professor Of Music 01/05/25
== END 2025-05-12 14:59 | disposition home or self-care (01) ==
LOC: HO.ENCR 14:16
PROVIDERS: PCP Physician Assistant; Visit Provider Physician Assistant Medical
DX: E11.8 Type 2 diabetes mellitus with unspecified complications (principal); I10 Essential (primary) hypertension; I73.9 Peripheral vascular disease, unspecified; E66.01 Morbid (severe) obesity due to excess calories

== ENCOUNTER → 2025-05-12 14:15 | Outpatient (BNVA) | payer OTHER, SELFPAY | PROVIDERS: PCP Physician Assistant; Visit Provider Physician Assistant Medical | DX: E11.9 Type 2 diabetes mellitus without complications (principal); I10 Essential (primary) hypertension; I73.9 Peripheral vascular disease, unspecified; E66.01 Morbid (severe) obesity due to excess calories | CPT/HCPCS: 82947; 83036; 99212 ==

== ENCOUNTER 2025-05-29 14:38 | Outpatient (AMB) | payer OTHER, SELFPAY ==
--- NOTE | 2025-05-29 14:39 | A.OFFVIS_ITS ---
Vital Signs 05/29/25 14:40 Height 5 ft 9 in BP 146/72 H Blood Pressure Location Lt brachial Position Sitting Pulse 91 Pulse Source Pulse Oximeter Pulse Oximetry (%) 98 Oxygen Delivery Method Room Air Intake Visit Reasons: DM2 f/u after bariatric surgery last week Intake Note: Patient present today for Type 2 Diabetes Mellitus Last Diabetic eye exam: Last exam was in 2024 but patient is unsure of exact month. Last Podiatry Visit: Last visit was on 03/2025 Random Glucose: 212 mg/dl HgA1C: 6.4% 05/12/25 Faith Doctor Required: No Accompanied by: Self / Same As Patient Allergies NSAIDS (Non-Steroidal Anti-Inflamma Allergy (Unknown, Verified 05/29/25 14:47) Unknown sulfamethoxazole (From Bactrim) Adverse Reaction (Intermediate, Verified 05/07 11/28 14:47) Elevated renal functions trimethoprim (From Bactrim) Adverse Reaction (Intermediate, Verified 05/29/25 14:47) Elevated renal functions Medication List - Last Reconciled 05/29/25 by RONY Moore acetaminophen ER 1,300 mg (2 x 650 mg) PO Q8H PRN 90 days alcohol swabs 1 pad topical QID aspirin (Adult Aspirin Regimen) 81 mg PO DAILY 90 days atorvastatin 80 mg PO BEDTIME 30 days [BARIATRIC WALKER As directed] blood pressure kit-extra large As directed blood pressure monitor As directed blood sugar diagnostic (FreeStyle Lite Strips) As directed blood sugar diagnostic (FreeStyle Lite Strips) As directed to check glucose up to 3 times daily blood sugar diagnostic (FreeStyle Lite Strips) USE TO TEST FINGER STICK BLOOD SUGAR 4 (FOUR) TIMES DAILY blood-glucose meter (FreeStyle Lite Meter kit) 3 times a day blood-glucose sensor (FreeStyle Kishan 3 Plus Sensor device) Apply 1 new sensor every 15 days as directed to monitor blood glucose continuously. blood-glucose,bacteriologist industrial,cont (FreeStyle Kishan 3 [place]) Use daily to monitor blood glucose levels continuously. carvedilol 25 mg PO BID chair, wheel (Wheel chair) LIFETIME USE cholecalciferol (vitamin D3) (Vitamin D3) 25 mcg PO DAILY emtricitabine-tenofovir alafen 200-25 mg (Descovy) 1 tab PO DAILY 30 days famotidine 20 mg PO BEDTIME ferrous sulfate 325 mg PO DAILY furosemide 40 mg (2 x 20 mg) PO DAILY 30 days gabapentin 800 mg PO TID 30 days glucose (Dex4 Glucose Quick Dissolve) 16 grams (4 x 4 gram) PO Q15M PRN hydralazine 100 mg PO BID incontinence pad, liner, disp As directed insulin degludec (Tresiba FlexTouch U-200 insulin) 60 units subcut BEDTIME insulin lispro (Humalog KwikPen U-200 Insulin) subcutaneously daily; 30 units before dinner lancets As directed lancets (Easy Touch Lancets) As directed 3 times daily lancets (True Comfort Lancet) As directed lancets (FreeStyle Lancets) Use to monitor blood glucose 3 times daily. latex gloves (Latex Gloves, Large) As directed lisinopril 1 tab PO DAILY [manual wheel chair As directed with adjustable leg rests ] melatonin 10 mg PO DAILY miscellaneous medical supply 1 ea miscellaneous DAILY 90 days nifedipine ER 90 mg PO DAILY 90 days omeprazole 20 mg PO BID pen needle, diabetic As directed [Power wheel chair As directed] [Replacement prosthesis for right lower extremity As directed] spironolactone 25 mg PO DAILY 90 days sucralfate 10 mL PO BID tirzepatide (Mounjaro) 2.5 mg (0.5 mL) subcut QWEEK tramadol 50 mg PO TID PRN 30 days walker (Ultra-Light Rollator misc) As directed [Walker repair As directed] HPI Comments Details: This is a 39-year-old male with a past medical history of type 2 diabetes, fatty liver disease, lymphedema, peripheral arterial disease, CKD stage 3, hypertension, obesity, NOLAN, GERD, CVA, hyperlipidemia and vitamin-D deficiency presenting for diabetic management. He was initially diagnosed with type 2 diabetes at the age of [age] years old. He had a gastric sleeve procedure at [facility] with Dr. Rodriguez 05/21/2025. Patient says he has realized his Dexcom is not accurate. It has been reading about 60-80 points higher than fingersticks. Currently it says his blood sugar is 285, but his fingerstick is 212. His 90 day G RI is 7.2%, but his hemoglobin A1c is 6.4% this month. His blood sugar on the CGM was 300 the other night, so he administered more insulin, and this resulted in an episode of hypoglycemia which he treated with orange juice. Current medication regimen: Tresiba 70 units at bedtime, Humalog 38 units before dinner. Previously on Zepbound. He requested to go back on Ozempic, but his insurance denied it. He would like to start Mounjaro. Past medication: Was initially on metformin and glyburide and began using insulin at age 20. He saw [facility] on 05/07/2025. Reviewed Dexcom Very high 8% 23% high 67% in range 1% low Diabetic complications: Retinopathy, neuropathy, nephropathy (CKD and microalbuminuria), atherosclerotic vascular disease. CAD, CVA, Right BKA 8 years ago. His blood pressure is elevated today. He takes spironolactone, nifedipine, lisinopril, hydralazine, furosemide Hyperlipidemia is treated with atorvastatin ROS: Constitutional: No unexplained weight loss, fever, chills, fatigue or night sweats. Respiratory: No shortness of breath Cardiovascular: No chest pain Neurologic: No headache or dizziness Endocrine: No cold or heat intolerance. No polyuria or polydipsia. Physical exam: Constitutional: Alert, in no distress. Neck: Supple, Full range of motion. No lymphadenopathy. Respiratory: Clear to auscultation. Cardiovascular: S1 S2 regular. No murmurs Neurologic: No focal neurological deficits. Psychiatric: Normal mood and affect [facility] Medical History (Updated 05/12/25 @ 15:04 by RONY Moore) Acute respiratory disease Depression Insomnia Anxiety DJD (degenerative joint disease) Sleep apnea treated with continuous positive airway pressure (CPAP) Arthritis PAD (peripheral artery disease) CKD (chronic kidney disease) Exposure to bloodborne pathogen Abnormal stress test History of stroke Morbid obesity NOLAN (obstructive sleep apnea) HTN (hypertension) Right below-knee amputee Blind left eye Neuropathy CVA (cerebral vascular accident) (~2018) Sleep apnea Obesity Vitamin D deficiency HLD (hyperlipidemia) GERD (gastroesophageal reflux disease) Below knee amputation Type 2 diabetes mellitus Surgical History History of bariatric surgery History of esophagogastroduodenoscopy (EGD) (10/15/24) Hx of eye surgery History of amputation of right foot Family History Mother Diabetes Father Prostate cancer Paternal Aunt Diabetes Brother No problems noted. Brother No problems noted. Brother No problems noted. Brother No problems noted. Brother No problems noted. Sister No problems noted. Social History Household Members: None Housing: Apartment Are you a primary patient care nursing assistant to a significant other at home: No Do you presently have visiting nurse or other home services: Yes (FACILITY COORDINATOR daily) 75 years or older and lives alone: No Alcohol intake: never Patient Tobacco Use Status: Never used Tobacco e-Cigarette/Vaping Use: Never Used Second Hand Smoke Exposure: No service: No Current occupational status: disabled Cognitive needs: Yes (walk, wheelchair (w/c weighs 360lbs)) Hearing needs: No Vision needs: Yes (glasses) Physical Exam Vital Signs: Last Vital Signs Pulse 91 05/29/25 14:40 BP 146/72 H 05/29/25 14:40 Pulse Ox 98 05/29/25 14:40 Oxygen Delivery Method Room Air 05/29/25 14:40 Results Reviewed Results Reviewed: Laboratory Last Values Glucose (Clinic) 212 mg/dL (60-115) H 05/29/25 14:49 Laboratory Tests 08/14/22 06/16/24 02/17/25 15:50 12:07 12:22 Creatinine 1.50 H Estimated GFR 52 AST 31 ALT 33 LDL Cholesterol Direct 79 Triglycerides 161 H Cholesterol 115 LDL Cholesterol, Calc 60 HDL Cholesterol 23 L TSH 1.48 Urine Creatinine 228.45 Urine Microalbumin > 2000.0 Microalb/Creat Ratio 875.4 H Assessment & Plan Assessment & Plan (1) Type 2 diabetes mellitus with unspecified complications: Code(s): E11.8 - Type 2 diabetes mellitus with unspecified complications Category: Medical (2) HTN (hypertension): Code(s): I10 - Essential (primary) hypertension Category: Medical Qualifiers: Hypertension type: essential hypertension Qualified Code(s): I10 - Essential (primary) hypertension (3) PAD (peripheral artery disease): Code(s): I73.9 - Peripheral vascular disease, unspecified Category: Medical (4) Morbidly obese: Code(s): E66.01 - Morbid (severe) obesity due to excess calories Category: Medical Plan 39-year-old male with type 2 diabetes, controlled, with multiple complications. Status post gastric sleeve 05/21/2025. Following postop diet-on purees. Start Mounjaro 2.5 mg weekly. Side effects reviewed. Reduce Tresiba to 60 units at bedtime. Reduce Humalog to 30 units before dinner. Dexcom G7 is not providing accurate glucose readings. There is always some difference between a fingerstick and sensor however it is 60-80 points higher on CGM. We will see if insurance covers Kishan 3 plus, and I sent a prescription for a new glucometer, lancets and test strips. If he has alerted to high or low sugar by his CGM he will check a fingerstick to confirm the reading. Reviewed treatment of hypoglycemia. His insurance does not cover glucose tablets, but he will purchase them [id number]. Hypertension-blood pressure is mildly elevated today. Continue current regimen and recheck at next visit. Continue atorvastatin 80 mg. Recommended low-cholesterol diet. Avoid full fat dairy products and red meat. Labs ordered. Follow up in 1 month for type 2 diabetes. Orders: Orders Microalbumin, Random (w Creat) Today E11.8 - Type 2 diabetes mellitus with unspecified complications, E11.9 - Type 2 diabetes mellitus without complications, E78.5 - Hyperlipidemia, unspecified, I10 - Essential (primary) hypertension Creatinine Today E11.8 - Type 2 diabetes mellitus with unspecified complications, E11.9 - Type 2 diabetes mellitus without complications, E78.5 - Hyperlipidemia, unspecified, I10 - Essential (primary) hypertension Lipid Panel Today E11.8 - Type 2 diabetes mellitus with unspecified complications, E78.5 - Hyperlipidemia, unspecified, I10 - Essential (primary) hypertension Alanine Aminotransferase Today E11.8 - Type 2 diabetes mellitus with uns pecified complications, E78.5 - Hyperlipidemia, unspecified, I10 - Essential (primary) hypertension Aspartate Amino Transferase Today E11.8 - Type 2 diabetes mellitus with u nspecified complications, E78.5 - Hyperlipidemia, unspecified, I10 - Essential (primary) hypertension Medications: New blood-glucose,bacteriologist industrial,cont (FreeStyle Kishan 3 [place]) Use daily to monitor blood glucose levels continuously. 1 ea 0RF blood sugar diagnostic (FreeStyle Lite Strips) As directed to check glucose up to 3 times daily 100 ea 5RF blood-glucose sensor (FreeStyle Kishan 3 Plus Sensor device) Apply 1 new sensor every 15 days as directed to monitor blood glucose continuously. 2 ea 11RF tirzepatide (Mounjaro) for 4 weeks 2.5 mg (0.5 mL) subcut QWEEK 2 mL 0RF blood-glucose meter (FreeStyle Lite Meter kit) 3 times a day 1 ea 0RF E11.9 - Type 2 diabetes mellitus without complications lancets (FreeStyle Lancets) Use to monitor blood glucose 3 times daily. 100 ea 5RF Changed From insulin degludec (Tresiba FlexTouch U-200 insulin) 70 units (0.35 mL) subcut BEDTIME 30 days 12 mL 5RF To insulin degludec (Tresiba FlexTouch U-200 insulin) 60 units subcut BEDTIME Discontinued blood-glucose sensor (Dexcom G7 Sensor device) Discontinued Reason: Doctor's Order As directed change every 10 days 3 ea 5RF Patient Instructions: Start Mounjaro 2.5 mg weekly Decrease Tresiba to 60 units at bedtime Decrease Humalog to 30 units before dinner If you experience low blood sugar, treat this by eating a chewable fruit candy like skittles or jelly beans (about 8 pieces), 4 ounces (1/2 cup) of fruit juice (not diet), 1 tablespoon of honey or 4 glucose tablets. If your blood sugar is under 50, take double the amount of one of the above. Recheck your blood sugar in 15 minutes. Coding Level of Care Code Est Pt Level 4 (76375) Complex EM visit Add On G2211 Diagnoses Type 2 diabetes mellitus with unspecified complications E11.8 Essential hypertension I10 Hypertension type: essential hypertension PAD (peripheral artery disease) I73.9 Morbidly obese E66.01
[2025-05-29 14:40] VITALS: BP 146/72; PULSE 91; O2SAT 98
[2025-05-29 14:54] LABS: Glucose, Whole Blood 212 mg/dL (60-115)
--- OUTSIDE RECORDS SUMMARY | 2025-05-29 16:24 | XMS_ITS | Encounter Summary ---
Author Organization [facility] Address [address] [place] [address] Care Team Providers Care Sql Analyst Name Role Phone Clay Guevara Primary Care Provider [phone] Reason for Visit * Reason Onset Date Comments Advice Only 05/26/2025 Encounter Details Date Type Department Care Team ([facility] st Contact Info) Description 05/26/2025 Telephone Bariatric Surgery - [place] [address] [facility] [address] [place] [address] Carmel Blake, RD 175 [facility] [address] [place] [address] Social History Tobacco Use Types Packs/Day Years Used Date Smoking Tobacco: Never Alcohol Use Standard Drinks/Week Comments No 0 (1 standard drink = 0.6 oz pur e alcohol) Housing Instability Answer Date Recorde d Are you worried that in the next 2 months you may not have stable housing? No 05/21/2025 Food Access & Nutrition Answer Date Rec orded Do you have access to a vari ety of food including fruits and vegetables? Yes 05/21/2025 Access to Healthcare Answer Date Record ed Within the last 3 months, ho w many times did you visit the emergency department for your medical care? 0 05/21/2025 Health Literacy Answer Date Recorded How often do you need to hav e someone help you when you read instructions, pamphlets, or other written material from your doctor or pharmacy? Never 05/21/2025 Caregiver: How often do you need to have someone help you when you read instructions, pamphlets, or other written material from your doctor or pharmacy? Not on file 05/21/2025 Financial Risk Answer Date Recorded How hard is it for you to pa y for the very basics like food, housing, medical care, and air conditioning / heating? Not very hard 05/21/2025 Transportation Answer Date Recorded Has the lack of transportati on kept you from meetings, work, or from getting things needed for daily living? No Has the lack of transportati on kept you from medical appointments or from getting medications? No 05/21/2025 Social Isolation Answer Date Recorded How often do you feel lonely or isolated from th ose around you? Never 05/21/2025 Food Risk Answer Date Recorded Within the past 12 months we worried whether our food would run out before we got money to buy more. Never true 05/21/2025 Within the past 12 months th e food we bought just didn't last and we didn't have money to get more. Never true 05/21/2025 Dependent Care Answer Date Recorded Do you need help finding or paying for care for your loved ones. For example, child and adolescent psychiatrist or elderly care for an older adult? No 05/21/2025 Education Answer Date Recorded Do you think completing more education or training, like finishing a GED, going to college, or learning a trade, would be helpful for you? No 05/21/2025 Employment and Income Answer Date Recor ded During the last four weeks, have you been actively looking for work? No 05/21/2025 Living Situation Answer Date Recorded What is your living situation? Unrecognized valu e 05/21/2025 Interpersonal Safety Answer Date Record ed Physical Abuse Unrecognized value 05/21/2025 Verbal Abuse Unrecognized value 05/21/2025 Sex and Gender Information Value Date Recorded Sex Assigned at Male 04/16/2025 9:30 AM EDT Legal Sex Male 6:39 AM EST Gender Identity Not on file Sexual Orientation Lesbian or Bacon 05/21/2025 3: 58 PM EDT documented as of this encounter Progress Notes * Carmel Blake RD - 05/26/2025 10:50 AM EDT Called pt, left voicemail documented in this encounter Plan of Treatment Upcoming Encounters Date Type Department Care Team (Late st Contact Info) Description 06/08/2025 11:15 AM EST Office Visit Bariatric Surgery [facility] [address] [phone] Makenzie Rodriguez MD [address] [place] [phone] 06/16/2025 8:00 AM EST Appointment [facility] Nuclear Medicine [address] [place] [phone] 06/23/2025 11:00 AM EST Telemedicine Bariatric Surgery [facility] [address] [phone] Carmel Blake, RD [address] [phone] 08/03/2025 1:00 PM EST Office Visit Bariatric Surgery [facility] [address] [phone] Makenzie Rodriguez MD [address] [place] [phone] documented as of this encounter Goals Goal Patient Goal Type Associated Problems Recent Progress Patient-Stated? Author Autogenera geetha Goal Care Plan Autogenerated Problem No Makenzie Rodriguez MD documented as of this encounter Visit Diagnoses Not on filedocumented in this encounter Additional Health Concerns Active Problems Noted Date Diagnosed Date Autogenerated Problem 05/04/2025 documented as of this encounter Care Teams Sql Analyst Relationship Specialty Start Date End Date Clay Guevara PA [facility] [place] [address] PCP - General Physician Senior Db2 Systems Programmer 01/05/25 documented as of this encounter
--- OUTSIDE RECORDS SUMMARY | 2025-05-29 16:24 | XMS_ITS | Encounter Summary ---
Author Organization [facility], Address [address] [place] [address] Phone Care Team Providers Care Security Escort Name Role Phone Clay Guevara Primary Care Provider [phone] Reason for Visit * Reason Onset Date Comments longterm visit 08/14/2019 CKDIII/HTN Encounter Details Date Type Department Care Team (Late st Contact Info) Description 08/14/2019 Documentation Only [facility] [address] [place] [address] Connie Stafford PA Social History Tobacco Use [...] on filedocumented in this encounter Care Teams Security Escort Relationship Specialty Start Date End Date Clay Guevara PA [address], [address] [place] [address] PCP - General Physician Computer Science Teacher 06/23/20 documented as of this encounter
--- OUTSIDE RECORDS SUMMARY | 2025-05-29 16:24 | XMS_ITS | Encounter Summary ---
Author Organization [facility], Address [address] [place] [address] Phone Care Team Providers Care Health Physicist Name Role Phone Clay Guevara Primary Care Provider [phone] Reason for Visit * Reason Comments Med Refill Encounter Details Date Type Department Care Team (Late st Contact Info) Description 11/19/2023 Refill [facility], [address] [place] [phone] Lucio Hancock MD [address] [facility] [place] [place] [phone] Social History Tobacco Use Types Packs/Day Years [...] on filedocumented in this encounter Care Teams Health Physicist Relationship Specialty Start Date End Date Clay Guevara PA [address], [address] [place], [place] [phone] PCP - General Physician Test Development Engineer 06/23/20 documented as of this encounter
--- OUTSIDE RECORDS SUMMARY | 2025-05-29 16:24 | XMS_ITS | Encounter Summary ---
Author Organization [facility], Address [address] [place] [address] Phone Care Team Providers Care Die Storage Clerk Name Role Phone Clay Guevara Primary Care Provider [phone] Encounter Details Date Type Department Care Team (Late st Contact Info) Description 04/16/2024 Documentation Only [facility], [address] [place] [address] Jean [place], [place] [address] [place] [address] Social History Tobacco Use Types [...] on filedocumented in this encounter Care Teams Die Storage Clerk Relationship Specialty Start Date End Date Clay Guevara PA [address], [address] [place], [place] [phone] PCP - General Physician Pants Closer 06/23/20 documented as of this encounter
--- OUTSIDE RECORDS SUMMARY | 2025-05-29 16:24 | XMS_ITS | Encounter Summary ---
Author Organization [facility], Address [address] [place] [address] Phone Care Team Providers Care Airplane Patrol Pilot Name Role Phone Clay Guevara Primary Care Provider [phone] Encounter Details Date Type Department Care Team (Late st Contact Info) Description 04/28/2021 Documentation Only [facility], [address] [place] [address] Connie Stafford PA Social History Tobacco Use [...] on filedocumented in this encounter Care Teams Airplane Patrol Pilot Relationship Specialty Start Date End Date Clay Guevara PA [address], [address] [place], [place] [phone] PCP - General Physician Beam Sealer 06/23/20 documented as of this encounter
--- OUTSIDE RECORDS SUMMARY | 2025-05-29 16:24 | XMS_ITS | Encounter Summary ---
Author Organization [facility], Address [address] [place] [address] Phone Care Team Providers Care Die Keeper Name Role Phone Clay Guevara Primary Care Provider [phone] Reason for Visit * Reason Comments Med Refill Encounter Details Date Type Department Care Team (Late st Contact Info) Description 12/15/2023 Refill [facility], [address] [place] [phone] Lucio Hancock MD [address] [facility] [place] [phone] Social History Tobacco Use Types Packs/Day Years [...] filedocumented in this encounter Care Teams Die Keeper Relationship Specialty Start Date End Date Clay Guevara PA [address], [address] [place], [place] [phone] PCP - General Physician Senior Sales Representative 06/23/20 documented as of this encounter
--- OUTSIDE RECORDS SUMMARY | 2025-05-29 16:24 | XMS_ITS | Clinical Summary ---
Author Organization [facility], Address [address] [place] [address] Phone Care Team Providers Care Software Validation Engineer Name Role Phone Clay Guevara Primary Care Provider [phone] Allergies Active Allergy Reactions Criticality Noted Date [...] Encounters Date Type Department Care Team Description 05/13/2025 4:30 PM EDT Office Visit [facility] [address] [place] [address] Lucio Hancock MD Stage 3a chronic kidney disease (HCC) (Primary Dx) 03/11/2025 Refill [facility] [address] [place] [address] Lucio Hancock MD from Last 3 Months Family History Medical [...] PM EDT) Hemoglobin A1C 7.5(H) (4.0-5.6) % [facility] Comment: MONITORING: In known diabetic patients, hemoglobin A1c targets should be discussed with health care provider. DIAGNOSTIC USE: The [place] Diabetes Association (ADA) and the World Health [...] Supplement 1 Testing performed or reported by [facility], a Service of [facility], [address] [place] [address] Marco Delgado MD, Montessori Lead Teacher [facility]# [id number] Blood specimen (specimen) Venous blood / Unknown 10/27/2021 3:46 PM EDT 10/27/2021 4:03 PM EDT us Connie [facility]BE LAB BLOOD ORDERABLES Final Res ult [facility] from Last 3 Months or Most Recently Relevant to Health Maintenance Insurance [facility] [employer] Care Teams Software Validation Engineer Relationship Specialty Start Date End Date Clay Guevara PA [address] [facility], [address] [place] [address] PCP - General Physician Tie Up Worker 06/23/20
--- OUTSIDE RECORDS SUMMARY | 2025-05-29 16:24 | XMS_ITS | Clinical Summary ---
Author Organization [facility] Address [address] [place] [address] Phone Care Team Providers Care Manager Relationship Name Role Phone Clay Guevara Primary Care Provider Allergies Active Allergy Reactions Criticality Noted Date Comments Nsaids (Non-Steroidal Anti-I nflammatory Drug) Other Medium 04/15/2025 CKD Medications aspirin 81 mg EC tablet Take [...] 70 Units under the skin at bedtime. 5 Active HumaLOG KwmallyPen Insulin 200 unit/mL (3 mL) CONCENTRATED injection pen Inject 38 Units under the skin 1 (one) time each day before dinner. 5 Active lisinopriL (PRINIVIL,ZESTRIL ) 20 mg tablet [...] mouth 3 (three) times a day. Active acetaminophen (TYLENOL) 500 mg tablet Take 2 tablets (1,000 mg total) by mouth every 8 (eight) hours. 180 tablet Active simethicone (MYLICON) 80 mg chewable tablet Chew 1 tablet (80 mg total) every 6 (six) hours if needed for flatulence. 30 tablet 5 Active wheat dextrin 3 gram/3.5 gram powder in packet Take 1 packet by mouth 1 (one) time each day. 30 packet 5 Active ursodioL (ACTIGALL) 300 mg capsule Take 1 capsule (300 mg total) by mouth 2 (two) times a day. 60 each 5 5 11/16/19 26 Active oxyCODONE (ROXICODONE) 5 mg immediate release tablet Take 1 tablet (5 mg total) by mouth every 4 (four) hours if needed for severe pain. Max Daily Amount: 30 mg 12 tablet 5 Active ondansetron (ZOFRAN) 4 mg tablet Take 1 tablet (4 mg total) by mouth every 8 (eight) hours if needed for nausea or vomiting for up to 7 days. 21 tablet 5 05/26/20 25 Active Problems Problem Noted Date Diagnosed Date Class 3 severe obesity with serious comorbidity and body mass index (BMI) of 45.0 to 49.9 in adult ([facility] V24, [facility] V28) 05/07/2025 Morbid obesity with BMI of 4 5.0-49.9, adult ([facility] V24, [facility] V28) 04/17/2025 Encounters Date Type Department Care Team Description 05/26/2025 Telephone Bariatric Surgery - [place] [address] [phone] 05/21/2025 11:08 AM EDT Anesthesia Event [facility] Main OR [address] [place] [phone] Freddie Villa DO Burton, Heather, CRNA 05/21/2025 10:00 AM EDT - 05/21/2025 12:30 PM EDT Surgery [facility] OR [address] [place] [phone] Makenzie Rodriguez MD DAVINCI SLEEVE GASTRECTOMY [07326 (CPT )] 05/21/2025 9:02 AM EDT - 05/22/2025 3:48 PM EDT Hospital Encounter [facility] Medical Surgical Unit [address] [place] [phone] Makenzie Rodriguez MD Morbid obesity with BMI of 45.0-49.9, adult ([facility] V24, [facility] V28) Discharge Disposition: Home or Self Care 05/19/2025 1:15 PM EDT Consult Bariatric Surgery [address] [phone] Makenzie Rodriguez MD Obesity, Class III, BMI 40-49.9 (morbid obesity) ([facility] V28) (Primary Dx); Sleep apnea, unspecified type; Gastroesophageal reflux disease, unspecified whether esophagitis present 05/07/2025 11:00 AM EDT Consult Bariatric Surgery [address] [phone] Carmel Blake, CASIMIRO Class 3 severe obesity with serious comorbidity and body mass index (BMI) of 45.0 to 49.9 in adult, unspecified obesity type ([facility] V24, [facility] V28) (Primary Dx) 05/05/2025 2:40 PM EDT - 05/05/2025 11:59 PM EDT Hospital Encounter [facility] Xray [address] [place] [address] Discharge Disposition: Home or Self Care 04/15/2025 2:30 PM EDT Office Visit Bariatric Surgery - [place] 175 [facility] [address] [place] [address] Makenzie Rodriguez MD Gastroparesis (Primary Dx); Obesity, Class III, BMI 40-49.9 (morbid obesity); Sleep apnea, unspecified type; Type 2 diabetes mellitus with obesity ([facility] V24, [facility] V28); Primary hypertension; Gastroesophageal reflux disease, unspecified whether esophagitis present from Last 3 Months Surgical History Surgery Date Site/Laterality Comments EYE SURGERY RETINAL DETACHMENT AMPUTATION RBKA Medical History Medical History Date Comments Other and unspecified hyperlipidemia 04/18/2005 DX:Other and unspecified hyperlipidemia Morbid obesity ([facility] V24, [facility] V28) 04/18/2005 DX:Morbid obesity ([facility]) Type II or unspecified type diabetes mellitus without mention of complication, not stated as uncontrolled 04/18/2005 DX:Type II or unspecified ty pe diabetes mellitus without mention of complication, not stated as uncontrolled Type 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, uncontrolled(250.42) ([facility] V24, [facility] V28) 02/01/2007 DX:Type II or unspecified ty pe diabetes mellitus with renal manifestations, uncontrolled(250.42) ([facility]) Reflux 07/27/07 DX:Reflux Essential hypertension, benign 05/17/07 D X:Essential hypertension, benign Essential hypertension, benign 05/17/07 D X:Essential hypertension, benign Preglaucoma 07/27/07 DX:Preglaucoma Chronic kidney disease CKD (chronic kidney disease) stage 3, GFR 30-59 ml/min ([facility] V24, [facility] V28) per h&p CVA (cerebral vascular accid ent) ([facility] V24, [facility] V28) right sided weakness Retinopathy due to secondary diabetes mellitus ([facility] V24, [facility] V28) Family History Medical History Relation Name Comments [...] care for your loved ones. For example, childhood development teacher or elderly care for an older adult? [...] or Bacon 05/21/2025 3: 58 PM EDT Obstetrics History Last Filed Vital Signs Vital Sign Reading Time Taken Comments Blood Pressure 177/87 05/22/2025 7:45 AM EDT Pulse 106 05/22/2025 7:45 AM EDT Temperature 37.6 C (99.6 F) 05/22/2025 7:45 AM EDT Respiratory Rate 18 05/22/2025 7:45 AM EDT Oxygen Saturation 99% 05/22/2025 7:4 5 AM EDT Inhaled Oxygen Concentration - - Weight 147 kg (323 lb) 05/21/2025 9:19 AM EDT 05/19/26 doctors office Height 175.3 cm (5' 9 ) 05/21/2025 9:19 AM EDT Body Mass Index 47.7 05/21/2025 9:19 AM EDT Plan of Treatment Upcoming Encounters Date Type Department Care Team (Late st Contact Info) Description 06/08/2025 11:15 AM EST Office Visit Bariatric Surgery [facility] [address] [phone] Makenzie Rodriguez MD [address] [place] [phone] 06/16/2025 8:00 AM EST Appointment [facility] Nuclear Medicine [address] [place] [phone] 06/23/2025 11:00 AM EST Telemedicine Bariatric Surgery [facility] [address] [phone] Carmel Blake, RD 175 [facility] [address] [place] [address] 08/03/2025 1:00 PM EST Office Visit Bariatric Surgery - [place] 175 [facility] [address] [place] [address] Makenzie Rodriguez MD [address] [place] [phone] Health Maintenance Due Date Last Done [...] HIV Screening 01/06/2025 Hepatitis C Screening 01/06/2025 COVID-19 Vaccine ( - 2023-2 5 season) 2025 Influenza Vaccine (#1) 2025 , 05/21/2023 Social Influencers of Health Screening 05/21/2026 05/21/2025 Diabetes: Annual GFR (Glomerular Filtration Rate) 05/22/2026 05/22/2025, 05/05/2025 Hypertension/CHF/CAD Annual BMP Blood Test 05/22/2026 05/22/2025, 05/05/2025 RSV Immunization Adult Patients (1 - [...] Procedure Name Priority Date/Time Associated Diagnosis Comments POCT GLUCOSE BLOOD Routine 05/22/2025 11 :06 AM EDT CBC WITH AUTO DIFFERENTIAL Routine 05/22/2025 8:02 AM EDT MAGNESIUM Routine 05/22/2025 8:02 AM EDT BASIC METABOLIC PANEL Routine 05/22/2025 8:02 AM EDT CBC AND DIFFERENTIAL Routine 05/22/2025 8:02 AM EDT POCT GLUCOSE BLOOD Routine 05/22/2025 7: 45 AM EDT POCT GLUCOSE BLOOD Routine 05/21/2025 7: 37 PM EDT POCT GLUCOSE BLOOD Routine 05/21/2025 4: 13 PM EDT OXYGEN THERAPY, ADULT Routine 05/21/2025 1:16 PM EDT TISSUE EXAM Routine 05/21/2025 12:59 PM EDT Morbid obesity with BMI of 45.0-49.9, adult (CMS/HCC V24, CMS/HCC V28) TH AN ENDOTRACHEAL(NO CHARGE) Routine 05/21/2025 11:34 AM EDT [facility] [facility] GASTRIC RESTRICTIVE PROCEDURE LONGITUDINAL GASTRECTOMY 05/21/2025 11:08 AM EDT Morbid obesity with BMI of 45.0-49.9, adult (CMS/HCC V24, CMS/HCC V28) Case Notes INPT Special Needs In patient - 120 minutes POCT GLUCOSE BLOOD Routine 05/21/2025 9: 18 AM EDT XR CHEST 2 VIEWS Routine 05/05/2025 2:55 [...] of 45.0-49.9, adult (CMS/HCC V24, CMS/HCC V28) from Last 3 Months Results * (ABNORMAL) POCT Glucose, blood (05/22/2025 11:06 AM EDT) Only the most recent of5 resultswithin the time period is included. [facility] Signature Glucose POCT 183(H) 70 - 100 mg/dL 05/22/2025 11:07 AM EDT [facility] Blood Capillary blood specimen / Unknown 05/22/2025 11:06 AM EDT 05/22/2025 11:08 AM EDT us Makenzie Rodriguez MD LAB POINT OF CA RE TEST DOCKED DEVICE UNSOLICITED RESULTS Final Result [facility] [address] [place] [address], [place] [phone] * (ABNORMAL) CBC auto differential (05/22/2025 8:02 AM EDT) Only the most recent of2 resultswithin the time period is included. WBC 10.3 4.8 - 10.8 K/mcL LAB HEMETOLOGY [facility]25 [facility] RBC 4.10(L) 4.50 - 5.50 M/mcL LAB HEMETOLOGY METHOD 05/22/2025 8:33 AM [facility] Hemoglobin 12.1(L) 13.5 - 17.5 g/dL LAB HEMETOLOGY METHOD 05/22/2025 8:33 AM [facility] Hematocrit 35.9(L) 42.0 - 54.0 % LAB HEMETOLOGY METHOD 05/22/2025 8:[facility] MCV 86.7 79.0 - 98.0 FL LAB HEMETOLOGY METHOD 05/22/2025 8:33 AM [facility] MCH 29.2 27.0 - 32.0 pcg LAB HEMETOLOGY METHOD 05/22/2025 8:33 AM [facility] MCHC 33.7 32.0 - 37.0 g/dL LAB HEMETOLOGY METHOD 05/22/2025 8:[facility] RDW 13.1 11.0 - 15.0 % LAB HEMETOLOGY METHOD 05/22/2025 8:33 AM [facility] Platelets 332 130 - 400 K/mcL LAB HEMETOLOGY METHOD 05/22/2025 8:33 AM [facility] MPV 9.5 7.0 - 11.0 FL LAB HEMETOLOGY METHOD 05/22/2025 8:33 AM [facility] NRBC 0.0 <1.0 % LAB HEMETOLOGY METHOD 05/22/2025 8:33 AM [facility] NRBC Absolute 0.00 <0.10 K/mcL LAB HEMETOLOGY METHOD 05/22/2025 8:33 AM [facility] Neutrophils Relative 75.8 % LAB HEMETOLOGY METHOD 05/22/2025 8:33 AM [facility] Lymphocytes Relative 15.9 % LAB HEMETOLOGY METHOD 05/22/2025 8:33 AM [facility] Monocytes Relative 7.8 % LAB HEMETOLOGY METHOD 05/22/2025 8:33 AM [facility] Eosinophils Relative 0.1 % LAB HEMETOLOGY METHOD 05/22/2025 8:33 AM [facility] Basophils Relative 0.2 % LAB HEMETOLOGY METHOD 05/22/2025 8:33 AM [facility] Immature Granulocytes Relative 0.2 % LAB HEMETOLOGY METHOD 05/22/2025 8:33 AM [facility] Neutrophils Absolute 7.78(H) 1.50 - 7.00 K/mcL LAB HEMETOLOGY METHOD 05/22/2025 8:33 AM [facility] Lymphocytes Absolute 1.63 1.00 - 5.00 K/mcL LAB HEMETOLOGY METHOD 05/22/2025 8:33 AM [facility] Monocytes Absolute 0.80 0.20 - 1.00 K/mcL LAB HEMETOLOGY METHOD 05/22/2025 8:33 AM EDT [facility] Eosinophils Absolute 0.01 0.00 - 0.50 K/[facility] LAB HEMETOLOGY METHOD 05/22/2025 8:33 AM EDT [facility] Basophils Absolute 0.02 0.00 - 0.20 K/[facility] LAB HEMETOLOGY METHOD 05/22/2025 8:33 AM EDT [facility] Immature Granulocytes Absolute 0.02 0.00 - 0.03 K/[facility] LAB HEMETOLOGY METHOD 05/22/2025 8:33 AM EDT [facility] Blood Venous blood specimen / Unknown Venipuncture / Unknown 05/22/2025 8:02 AM EDT 05/22/2025 8:21 AM EDT us Yolette URIBE LAB BLOOD ORDERABLES Final Res ult Performing Organization Address City/[facility]/ZIP Co de Phone Number [facility] [address] [place] [address], [place] [phone] * (ABNORMAL) Magnesium (05/22/2025 8:02 AM EDT) Magnesium 1.6(L) 1.9 - 2.6 mg/dL LAB CHEMISTRY METHOD 05/22/2025 8:53 AM EDT [facility] Blood Venous blood specimen / Unknown Venipuncture / Unknown 05/22/2025 8:02 AM EDT 05/22/2025 8:21 AM EDT us Yolette URIBE LAB BLOOD ORDERABLES Final Res ult [facility] [address] [place] [address], [place] [phone] * (ABNORMAL) Basic metabolic panel (05/22/2025 8:02 AM EDT) Sodium 137 133 - 145 mmol/L LAB CHEMISTRY METHOD 05/22/2025 8:53 AM [facility] Potassium 4.7 3.5 - 5.5 mmol/L LAB CHEMISTRY METHOD 05/22/2025 8:53 AM [facility] Chloride 105 96 - 110 mmol/L LAB CHEMISTRY METHOD 05/22/2025 8:53 AM [facility] CO2 26 21 - 32 mmol/L LAB CHEMISTRY METHOD 05/22/2025 8:53 AM [facility] Anion Gap 6 3 - 11 LAB CHEMISTRY METHOD 05/22/2025 8:53 AM [facility] Glucose 187(H) 70 - 100 mg/dL LAB CHEMISTRY METHOD 05/22/2025 8:53 AM [facility] BUN 21 5 - 25 mg/dL LAB CHEMISTRY METHOD 05/22/2025 8:53 AM [facility] Creatinine 1.19 0.70 - 1.30 mg/dL LAB CHEMISTRY METHOD 05/22/2025 8:53 AM [facility] eGFR 79 >=60 mL/min/1. 73m2 LAB CHEMISTRY METHOD 05/22/2025 8:53 AM [facility] Comment:Calculation based on the Chronic Kidney Disease Epidemiology Collaboration (CKD-EPI) equation refit without adjustment for race. BUN/Creatinine Ratio 17.6 LAB CHEMISTRY METHOD 05/22/2025 8:53 AM [facility] Calcium 9.2 8.5 - 10.5 mg/dL LAB CHEMISTRY METHOD 05/22/2025 8:53 AM [facility] Blood Venous blood specimen / Unknown Venipuncture / Unknown 05/22/2025 8:02 AM EDT 05/22/2025 8:21 AM EDT Yolette URIBE LAB BLOOD ORDERABLES Final Res ult Performing Organization Address City/[facility]/ZIP Co de Phone Number [facility] [address] [place] [address], [place] [phone] * Tissue exam (05/21/2025 12:59 PM EDT) Final Diagnosis A. Stomach, sleeve gastrectomy: - Portion of stomach with lamina propria hemorrhage. 05/22/2025 12:50 PM EDT [facility] at 1250 EDT Gross Description A. Stomach, : Labeled stomach . Received in formalin is a 19.0 x 3.8 x 3.2 cm pouch of stomach with a linear stapled margin of resection. There is scant attached perigastric adipose tissue. The serosa is pink to red-purple and focally hemorrhagic. The staple line is removed and inked black. The specimen is opened to show a bhandari-pink to dark red, hemorrhagic mucosa with prominent to flattened rugal folds. The hemorrhagic mucosa is most prominent in one half of the specimen. ) Polyps and masses are absent. Lymph nodes are absent. The luminal contents consist of red, bilious and bloody material. Receiving Barn Custodian sections are submitted in one cassette to include a perpendicular section of the margin and random stomach, three pieces. TS 05/22/2025 12:50 PM EDT [facility] Disclaimer Unless otherwise specified, all tissue is 10% NB formalin fixed and paraffin embedded. 05/22/2025 12:50 PM EDT [facility] Tissue Stomach structure / Unknown 05/21/2025 12:59 PM EDT 05/21/2025 3:46 PM EDT Makenzie Rodriguez MD LAB PATHOLOGY ORDERABLE S Final Result Performing Organization Address City/[facility]/ZIP Co de Phone Number [facility] [address] [place] [address], [place] [phone] * TH AN ENDOTRACHEAL(NO CHARGE) (05/21/2025 11:34 AM EDT) Narrative Doreen Gordon CRNA - 05/21/2025 11:34 AM EDT Doreen Gordon CRNA 05/21/2025 11:36 AM General Information and Staff Patient location during procedure: OR Resident/HAT FORMING MACHINE FEEDER: Doreen Gordon CRNA Performed: resident/HAT FORMING MACHINE FEEDER/CAA Performed by: Doreen Gordon CRNA Authorized by: Freddie Villa DO Intubation Additional Comments RSI due to active reflux. Glidescope used due to large neck/ large tongue/ small mouth opening. Grade 1 view with provu mac 4 Airway not difficult Reason: elective Final Airway Details Successful airway: ETT Cuffed: yes Successful intubation technique: video laryngoscopy Adjuncts used in placement: intubating stylet Endotracheal tube insertion site: oral Blade: Rama Blade size: #4 ETT size (mm): 7.5 Cormack-Lehane Classification: grade I - full view of glottis Placement verified by: chest auscultation and capnometry Measured from: lips ETT to lips (cm): 23 Final airway type: endotracheal airway Indications and Patient Condition Indications for airway management: anesthesia Sedation level: Yes Preoxygenated: yesSoft Tissue Damage: No Dentition Unchanged: Yes Patient position: ramp Mask difficulty assessment: 0 - not attempted us Freddie Villa DO ANESTHESIA ORDERABLES Final Res ult * XR Chest 2 Views (05/05/2025 2:55 PM EDT) Anatomical Region Laterality Modality Body Radiographic Anastacia ging 05/06/2025 7:50 AM EDT Impressions 05/06/2025 7:51 AM EDT No acute pulmonary disease. Code 22520 -------- FINAL REPORT -------- Dictated By: Reji Nicholson Dictated Date: 05/06/2025 07:50 ET Assigned Physician: Reji Nicholson Reviewed and Electronically Signed By: Reji Nicholson Signed Date: 05/06/2025 07:51 ET Workstation ID: [id number] Transcribed By: Self Edit Transcribed Date: 05/06/2025 [...] clear. IMPRESSION: No acute pulmonary disease. Code 19377 -------- FINAL REPORT -------- Dictated By: Reji Nicholson Dictated Date: 05/06/2025 07:50 ET Assigned Physician: Reji Nicholson Reviewed and Electronically Signed By: Reji Nicholson Signed Date: 05/06/2025 07:51 ET Workstation ID: [id number] Transcribed By: Self Edit Transcribed Date: 05/06/2025 07:50 ET us Makenzie Rodriguez MD IMG XR PROCEDURES Final Result * ECG 12 lead (05/05/2025 2:34 PM EDT) Ventricular Rate ECG 78 BPM GEMUSE Atrial Rate 78 BPM GEMUSE P-R Interval 170 ms GEMUSE QRS Duration 86 ms GEMUSE Q-T Interval 356 ms GEMUSE QTc 405 ms GEMUSE P Wave Franklin 46 degrees GEMUSE R Franklin -49 degrees GEMUSE T Franklin 17 degrees GEMUSE ECG Interpretation Normal sinus [...] ECG ORDERABLES Final R esult GEMUSE * Type and screen (05/05/2025 2:18 PM EDT) ABO Group O 05/06/2025 9:10 AM EDT [facility] Rh Type Positive 05/06/2025 9:10 AM EDT [facility] Antibody Screen Negative 05/06/2025 9:10 AM EDT [facility] Blood Venous blood specimen / Unknown Venipuncture / Unknown 05/05/2025 2:18 PM EDT 05/05/2025 4:17 PM EDT us Makenzie Rodriguez MD LAB BLOOD BANK TEST ORD ERABLES Final Result Performing Organization Address [facility] Co de Phone Number [facility] [address] [place] [address], [place] [phone] * (ABNORMAL) CMP (05/05/2025 2:18 PM EDT) Sodium 139 133 - 145 mmol/L LAB CHEMISTRY METHOD 05/05/2025 4:42 PM EDT [facility] Potassium 4.9 3.5 - 5.5 mmol/L LAB CHEMISTRY METHOD 05/05/2025 4:42 PM EDT [facility] Chloride 105 96 - 110 mmol/L LAB CHEMISTRY METHOD 05/05/2025 4:42 PM EDT [facility] CO2 29 21 - 32 mmol/L LAB CHEMISTRY METHOD 05/05/2025 4:42 PM EDT [facility] Anion Gap 5 3 - 11 LAB CHEMISTRY METHOD 05/05/2025 4:42 PM EDT [facility] Glucose 119(H) 70 - 100 mg/dL LAB CHEMISTRY METHOD 05/05/2025 4:42 PM [facility] BUN 21 5 - 25 mg/dL LAB CHEMISTRY METHOD 05/05/2025 4:42 PM [facility] Creatinine 1.44(H) 0.70 - 1.30 mg/dL LAB CHEMISTRY METHOD 05/05/2025 4:42 PM [facility] eGFR 63 >=60 mL/min/1. 73m2 LAB CHEMISTRY METHOD 05/05/2025 4:42 PM [facility] Comment:Calculation based on the Chronic Kidney Disease Epidemiology Collaboration (CKD-EPI) equation refit without adjustment for race. BUN/Creatinine Ratio 14.6 LAB CHEMISTRY METHOD 05/05/2025 4:42 PM [facility] Calcium 9.3 8.5 - 10.5 mg/dL LAB CHEMISTRY METHOD 05/05/2025 4:42 PM [facility] AST (SGOT) 20 10 - 42 unit/L LAB CHEMISTRY METHOD 05/05/2025 4:42 PM [facility] ALT (SGPT) 30 10 - 60 unit/L LAB CHEMISTRY METHOD 05/05/2025 4:42 PM [facility] Alkaline Phosphatase 128(H) 42 - 121 unit/L LAB CHEMISTRY METHOD 05/05/2025 4:42 PM [facility] Total Protein 6.8 6.0 - 8.0 g/dL LAB CHEMISTRY METHOD 05/05/2025 4:42 PM [facility] Albumin 3.5 3.2 - 5.0 g/dL LAB CHEMISTRY METHOD 05/05/2025 4:42 PM [facility] Total Bilirubin 0.7 0.0 - 1.4 mg/dL LAB CHEMISTRY METHOD 05/05/2025 4:42 PM [facility] Blood Venous blood specimen / Unknown Venipuncture / Unknown 05/05/2025 2:18 PM EDT 05/05/2025 4:17 PM EDT us Makenzie Rodriguez MD LAB BLOOD ORDERABLES Fi nal Result [facility] [address] [place] [address], from Last 3 Months Additional Health Concerns Active Problems Noted Date Diagnosed Date Autogenerated Problem 05/04/2025 Insurance [facility] [employer] PLAN Advance Directives * Full Code - Default (Latest Code Status on File) Date Activated Date Inactivated Comments 05/21/2025 9:09 AM 05/22/2025 5:53 PM This is or willie is used when code status has not been discussed with the patient, or code status is otherwise unknown/unconfirmed To update the patient's code status, place a code status order. Do not modify or discontinue any currently active code status orders. Care Teams Manager Relationship Relationship Specialty Start Date End Date Clay Guevara PA [address] [place] [phone] PCP - General Physician [employer] 01/05/25
== END 2025-05-29 15:15 | disposition home or self-care (01) ==
LOC: HO.ENCR 14:39
PROVIDERS: PCP Physician Assistant; Visit Provider Physician Assistant Medical
DX: E11.8 Type 2 diabetes mellitus with unspecified complications (principal); I10 Essential (primary) hypertension; I73.9 Peripheral vascular disease, unspecified; E66.01 Morbid (severe) obesity due to excess calories

== ENCOUNTER → 2025-05-29 14:38 | Outpatient (BNVA) | payer OTHER, SELFPAY | PROVIDERS: PCP Physician Assistant; Visit Provider Physician Assistant Medical | DX: I10 Essential (primary) hypertension (principal); E66.01 Morbid (severe) obesity due to excess calories; I73.9 Peripheral vascular disease, unspecified; E11.8 Type 2 diabetes mellitus with unspecified complications | CPT/HCPCS: 82947; 99212 ==

== ENCOUNTER 2025-06-15 15:25 | Outpatient (AMB) | payer OTHER, SELFPAY ==
[2025-06-15 15:38] VITALS: BP 141/73; PULSE 80; BMI 46.2
--- NOTE | 2025-06-15 15:38 | A.OFFVIS_ITS ---
Vital Signs 06/15/25 15:38 Height 5 ft 9 in Weight 313 lb BMI 46.2 BP 141/73 H Blood Pressure Location Lt brachial Position Sitting Pulse 80 Intake Visit Reasons: 5 MO F/U Intake Note: Jerome presents in the office as a 5 month follow up. CC: he had the gastric sleeve 3 weeks ago. Nursing Techn Required: No Allergies NSAIDS (Non-Steroidal Anti-Inflamma Allergy (Unknown, Verified 05/29/25 14:47) Unknown sulfamethoxazole (From Bactrim) Adverse Reaction (Intermediate, Verified 05/29/25 14:47) Elevated renal functions trimethoprim (From Bactrim) Adverse Reaction (Intermediate, Verified 05/29/25 14:47) Elevated renal functions HPI Comments Details: This is a 38-year-old gentleman who was referred to our office for ongoing refl ux symptoms. Patient reports that has been having episodic heartburn and retrosternal chest pain on and off for at least the last 3-5 years. Takes omeprazole in the morning around 10:00, after breakfast. Symptoms also pronounced around bedtime. Does not smoke. Drinks occasionally. No recent NSAID use. Has morbid obesity with BMI of 50. Other metabolic factors include type 2 diabetes complicated by non-healing diabetic foot ulcer leading to foot amputation. Hypertension. Likely sleep apnea. 03/19/24: Here for in person visit. Reports good contol of sx with BID PPI. Has been taking this for the last 3 months. No nausea or vomiting. Has not had a chance to reconnect with bariatrics yet. Barium swallow reviewed question of varices raised. Plt count normal, however will proceed with EGD. 10/16/24: * Normal esophagus * Gastritis (biopsy) * Gastric polyps (biopsy) * Duodenal polyps (biopsy)?? Recommendations:?? * Follow biopsy results. Our office will call or send a letter with results within 7-10 days. * No varices were noted today. Will repeat elastography and if continues to show advanced fibrosis, will favor repeating EGD in 2 years. Path: A. Duodenum, biopsy: Duodenal mucosa within normal limits. B. Duodenum, polypectomies: Hyperplastic duodenal mucosa with chronic, focally active, inflammation; negative for dysplasia. C. Stomach, polypectomy: Hyperplastic mucosal polyp with background moderate chronic inactive inflammation; no Helicobacter organisms seen. D. Stomach, biopsy: Antral-type and oxyntic mucosa with moderate chronic inactive inflammation; no Helicobacter organisms seen. US elastography: Hepatomegaly and hepatic steatosis. The median shear wave velocity in the liver is 1.76 m/s, corresponding to a median liver stiffness of 9.74 kPa. The IQR/median value is 0.08. This is indicative of a quality data set. Findings are indicative of a high elastography value suggestive of compensated advanced chronic liver disease. 01/14/25: Here for follow up. Reviewed EGD and US results. 06/15/25: Pt seen in follow up. Reported he had the weight loss surgery [facility] a few weeks ago. Reports he cont on Starting weight 380 # before he saw bariatric suregry. Went down to 314# before the surgery. Now is 290# Currently also on mounjaro 2.5 mg. Going up to 5 mg next week. [facility] Medical History Acute respiratory disease Depression Insomnia Anxiety DJD (degenerative joint disease) Sleep apnea treated with continuous positive airway pressure (CPAP) Arthritis PAD (peripheral artery disease) CKD (chronic kidney disease) Exposure to bloodborne pathogen Abnormal stress test History of stroke Morbid obesity NOLAN (obstructive sleep apnea) HTN (hypertension) Right below-knee amputee Blind left eye Neuropathy CVA (cerebral vascular accident) (~2019) Sleep apnea Obesity Vitamin D deficiency HLD (hyperlipidemia) GERD (gastroesophageal reflux disease) Below knee amputation Type 2 diabetes mellitus Surgical History History of bariatric surgery History of esophagogastroduodenoscopy (EGD) (10/15/24) Hx of eye surgery History of amputation of right foot Family History Mother Diabetes Father Prostate cancer Paternal Aunt Diabetes Brother No problems noted. Brother No problems noted. Brother No problems noted. Brother No problems noted. Brother No problems noted. Sister No problems noted. Social History Household Members: None Housing: Apartment Are you a primary career development counselor to a significant other at home: No Do you presently have visiting nurse or other home services: Yes ([employer] daily) 75 years or older and lives alone: No Alcohol intake: never Patient Tobacco Use Status: Never used Tobacco e-Cigarette/Vaping Use: Never Used Second Hand Smoke Exposure: No service: No Current occupational status: disabled Cognitive needs: Yes (walk, wheelchair (w/c weighs 360lbs)) Hearing needs: No Vision needs: Yes (glasses) Review of Systems Const All systems reviewed & are unremarkable except as noted in HPI and below Physical Exam Exam Exam: No apparent distress Nonicteric Abdomen soft, nondistended Alert and oriented x3, normal gait Vital Signs: Last Vital Signs Pulse 80 06/15/25 15:38 BP 141/73 H 06/15/25 15:38 BMI result Body Mass Index 46.2 Assessment & Plan Assessment & Plan (1) Fatty liver disease, nonalcoholic: Code(s): K76.0 - Fatty (change of) liver, not elsewhere classified Category: Medical (2) Type 2 diabetes mellitus with unspecified complications: Code(s): E11.8 - Type 2 diabetes mellitus with unspecified complications Category: Medical (3) Morbidly obese: Code(s): E66.01 - Morbid (severe) obesity due to excess calories Category: Medical (4) GERD (gastroesophageal reflux disease): Code(s): K21.9 - Gastro-esophageal reflux disease without esophagitis Category: Medical Qualifiers: Esophagitis presence: without esophagitis Qualified Code(s): K21.9 - Gastro-esophageal reflux disease without esophagitis Plan COngratulated pt on ongoing weight loss. Has lost a total of 80 lbs since Apr of last year. Encouraged ongoing efforts with diet, exercise (wears prosthetic - advised to talk to PT about stationary exercises or non weight bearing exercises), and meds. Plan: - US elastography - If improvement in liver stiffness will defer further US unless has rise in LFTs or weight regain Follow up 1 year Orders: Orders US abdomen comp w elastography Today K76.0 - Fatty (change of) liver, not elsewhere classified Coding Level of Care Code Est Pt Level 4 (15478) Diagnoses Fatty liver disease, nonalcoholic K76.0 Type 2 diabetes mellitus with unspecified complications E11.8 Morbidly obese E66.01 Gastroesophageal reflux disease without esophagitis K21.9 Esophagitis presence: without esophagitis
--- OUTSIDE RECORDS SUMMARY | 2025-06-15 17:29 | XMS_ITS | Clinical Summary ---
Author Organization [facility] Address [address] [place] [address] Phone Care Team Providers Care Civil Defense Director Name Role Phone Clay Guevara Primary Care [...] (BMI) of 45.0 to 49.9 in adult ([facility] V24, [facility] V28) 05/07/2025 Morbid obesity with BMI of 4 5.0-49.9, adult ([facility] V24, [facility] V28) 04/17/2025 Encounters Date Type Department Care Team Description 05/26/2025 Telephone Bariatric Surgery - [place] [address] [phone] 05/21/2025 11:08 AM EDT Anesthesia Event [facility] Main OR [address] [place] [phone] Freddie Villa DO Burton, Heather, CRNA 05/21/2025 10:00 AM EDT - 05/21/2025 12:30 PM EDT Surgery [facility] OR [address] [place] [phone] Makenzie Rodriguez MD DAVINCI SLEEVE GASTRECTOMY [33595 (CPT )] 05/21/2025 9:02 AM EDT - 05/22/2025 3:48 PM EDT Hospital Encounter [facility] Medical Surgical Unit [address] [place] [phone] Makenzie Rodriguez MD Morbid obesity with BMI of 45.0-49.9, adult ([facility] V24, [facility] V28) Discharge Disposition: Home or Self Care 05/19/2025 1:15 PM EDT Consult Bariatric Surgery [address] [phone] Makenzie Rodriguez MD Obesity, Class III, BMI 40-49.9 (morbid obesity) ([facility] V28) (Primary Dx); Sleep apnea, unspecified type; Gastroesophageal reflux disease, unspecified whether esophagitis present 05/07/2025 11:00 AM EDT Consult Bariatric Surgery [address] [phone] Carmel Blake, CASIMIRO Class 3 severe obesity with serious comorbidity and body mass index (BMI) of 45.0 to 49.9 in adult, unspecified obesity type ([facility] V24, [facility] V28) (Primary Dx) 05/05/2025 2:40 PM EDT - 05/05/2025 11:59 PM EDT Hospital Encounter [facility] Xray [address] [place] [address] Discharge Disposition: Home or Self Care 04/15/2025 2:30 PM EDT Office Visit Bariatric Surgery - [place] [address] [facility] [address] [place] [address] Makenzie Rodriguez MD Gastroparesis (Primary Dx); Obesity, Class III, BMI 40-49.9 (morbid obesity); Sleep apnea, unspecified type; Type 2 diabetes mellitus with obesity ([facility] V24, [facility] V28); Primary hypertension; Gastroesophageal reflux disease, unspecified whether esophagitis present from Last 3 Months Surgical History Surgery Date Site/Laterality Comments EYE SURGERY RETINAL DETACHMENT AMPUTATION [facility] Medical History Medical History Date Comments Other and unspecified hyperlipidemia 04/18/2005 DX:Other and unspecified hyperlipidemia Morbid obesity ([facility] V24, [facility] V28) 04/18/2005 DX:Morbid obesity ([facility]) Type II or unspecified type diabetes mellitus without mention of complication, not stated as uncontrolled 04/18/2005 DX:Type II or unspecified ty pe diabetes mellitus without mention of complication, not stated as uncontrolled Type 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, uncontrolled(250.42) ([facility] V24, [facility] V28) 02/01/2007 DX:Type II or unspecified ty pe diabetes mellitus with renal manifestations, uncontrolled(250.42) ([facility]) Reflux 07/27/07 DX:Reflux Essential hypertension, benign 05/17/07 D X:Essential hypertension, benign Essential hypertension, benign 05/17/07 D X:Essential hypertension, benign Preglaucoma 07/27/07 DX:Preglaucoma Chronic kidney disease CKD (chronic kidney disease) stage 3, GFR 30-59 ml/min ([facility] V24, [facility] V28) per h&p CVA (cerebral vascular accid ent) ([facility] V24, [facility] V28) right sided weakness Retinopathy due to secondary diabetes mellitus ([facility] V24, [facility] V28) Family History Medical History Relation Name [...] care for your loved ones. For example, infant childcare provider or elderly care for an older adult? [...] Care Team (Late st Contact Info) Description 06/16/2025 8:00 AM EST Appointment [facility] Nuclear Medicine [address] [place] [address] 06/23/2025 11:00 AM EST Telemedicine Bariatric Surgery - [place] [address] [phone] Carmel Blake, RD [address] [phone] 06/23/2025 1:15 PM EST Office Visit Bariatric Surgery - [place] [address] [phone] Makenzie Rodriguez MD [address] [place] [phone] 08/03/2025 1:00 PM EST Office Visit Bariatric Surgery - [address] [place] [address] Makenzie Rodriguez MD [address] [place] [address] Health Maintenance Due Date Last [...] ENDOTRACHEAL(NO CHARGE) Routine 05/21/2025 11:34 AM EDT [place] [facility] RESTRICTIVE PROCEDURE LONGITUDINAL GASTRECTOMY [...] of5 resultswithin the time period is included. [facility] Signature Glucose POCT 183(H) 70 - 100 mg/dL 05/22/2025 11:07 AM EDT [facility] Blood Capillary blood specimen / Unknown 05/22/2025 11:06 AM EDT 05/22/2025 11:08 AM EDT us Makenzie Rodriguez MD LAB POINT OF CA RE TEST DOCKED DEVICE UNSOLICITED RESULTS Final Result [facility] [address] [place] [address], [place] [phone] * (ABNORMAL) CBC auto differential (05/22/2025 8:02 AM EDT) Only the most recent of2 resultswithin the time period is included. WBC 10.3 4.8 - 10.8 K/mcL LAB HEMETOLOGY METHOD 05/22[facility]2025 8[facility] RBC 4.10(L) 4.50 - 5.50 M/mcL LAB HEMETOLOGY METHOD 05/22/2025 8:33 AM [facility] Hemoglobin 12.1(L) 13.5 - 17.5 g/dL LAB HEMETOLOGY METHOD 05/22/2025 8:33 AM [facility] Hematocrit 35.9(L) 42.0 - 54.0 % LAB HEMETOLOGY METHOD 05/22/2025 8:33 [facility] MCV 86.7 79.0 - 98.0 FL LAB HEMETOLOGY METHOD 05/22/2025 8:33 AM [facility] MCH 29.2 27.0 - 32.0 pcg LAB HEMETOLOGY METHOD 05/22/2025 8:33 AM [facility] MCHC 33.7 32.0 - 37.0 g/dL LAB HEMETOLOGY METHOD 05/22/2025 8:33 [facility] RDW 13.1 11.0 - 15.0 % LAB HEMETOLOGY METHOD 05/22/2025 8:33 AM [facility] Platelets 332 130 - 400 K/mcL LAB HEMETOLOGY METHOD 05/22/2025 8:33 AM [facility] MPV 9.5 7.0 - 11.0 FL LAB HEMETOLOGY METHOD 05/22/2025 8:33 AM [facility] NRBC 0.0 <1.0 % LAB HEMETOLOGY METHOD 05/22/2025 8:33 AM [facility] NRBC Absolute 0.00 <0.10 K/mcL LAB HEMETOLOGY METHOD 05/22/2025 8:33 AM [facility] Neutrophils Relative 75.8 % LAB HEMETOLOGY METHOD 05/22/2025 8:33 AM [facility] Lymphocytes Relative 15.9 % LAB HEMETOLOGY METHOD 05/22/2025 8:33 AM [facility] Monocytes Relative 7.8 % LAB HEMETOLOGY METHOD 05/22/2025 8:33 AM [facility] Eosinophils Relative 0.1 % LAB HEMETOLOGY METHOD 05/22/2025 8:33 AM [facility] Basophils Relative 0.2 % LAB HEMETOLOGY METHOD 05/22/2025 8:33 AM [facility] Immature Granulocytes Relative 0.2 % LAB HEMETOLOGY METHOD 05/22/2025 8:33 AM [facility] Neutrophils Absolute 7.78(H) 1.50 - 7.00 K/mcL LAB HEMETOLOGY METHOD 05/22/2025 8:33 AM [facility] Lymphocytes Absolute 1.63 1.00 - 5.00 K/mcL LAB HEMETOLOGY METHOD 05/22/2025 8:33 AM [facility] Monocytes Absolute 0.80 0.20 - 1.00 K/mcL LAB HEMETOLOGY METHOD 05/22/2025 8:33 AM EDT [facility] Eosinophils Absolute 0.01 0.00 - 0.50 K/[facility] LAB HEMETOLOGY METHOD 05/22/2025 8:33 AM EDT [facility] Basophils Absolute 0.02 0.00 - 0.20 K/[facility] LAB HEMETOLOGY METHOD 05/22/2025 8:33 AM EDT [facility] Immature Granulocytes Absolute 0.02 0.00 - 0.03 K/[facility] LAB HEMETOLOGY METHOD 05/22/2025 8:33 AM EDT [facility] Blood Venous blood specimen / Unknown Venipuncture / Unknown 05/22/2025 8:02 AM EDT 05/22/2025 8:21 AM EDT us Yolette URIBE LAB BLOOD ORDERABLES Final Res ult Performing Organization Address City/[facility]/ZIP Co de Phone Number [facility] [address] [place] [address], [place] [phone] * (ABNORMAL) Magnesium (05/22/2025 8:02 AM EDT) Magnesium 1.6(L) 1.9 - 2.6 mg/dL LAB CHEMISTRY METHOD 05/22/2025 8:53 AM EDT [facility] Blood Venous blood specimen / Unknown Venipuncture / Unknown 05/22/2025 8:02 AM EDT 05/22/2025 8:21 AM EDT us Yolette URIBE LAB BLOOD ORDERABLES Final Res ult [facility] [address] [place] [address], [place] [phone] * (ABNORMAL) Basic metabolic panel (05/22/2025 8:02 AM EDT) Sodium 137 133 - 145 mmol/L LAB CHEMISTRY METHOD 05/22/2025 8:53 AM [facility] Potassium 4.7 3.5 - 5.5 mmol/L LAB CHEMISTRY METHOD 05/22/2025 8:53 AM [facility] Chloride 105 96 - 110 mmol/L LAB CHEMISTRY METHOD 05/22/2025 8:53 AM [facility] CO2 26 21 - 32 mmol/L LAB CHEMISTRY METHOD 05/22/2025 8:53 AM [facility] Anion Gap 6 3 - 11 LAB CHEMISTRY METHOD 05/22/2025 8:53 AM [facility] Glucose 187(H) 70 - 100 mg/dL LAB CHEMISTRY METHOD 05/22/2025 8:53 AM [facility] BUN 21 5 - 25 mg/dL LAB CHEMISTRY METHOD 05/22/2025 8:53 AM [facility] Creatinine 1.19 0.70 - 1.30 mg/dL LAB CHEMISTRY METHOD 05/22/2025 8:53 AM [facility] eGFR 79 >=60 mL/min/1. 73m2 LAB CHEMISTRY METHOD 05/22/2025 8:53 AM [facility] Comment:Calculation based on the Chronic Kidney Disease Epidemiology Collaboration (CKD-EPI) equation refit without adjustment for race. BUN/Creatinine Ratio 17.6 LAB CHEMISTRY METHOD 05/22/2025 8:53 AM [facility] Calcium 9.2 8.5 - 10.5 mg/dL LAB CHEMISTRY METHOD 05/22/2025 8:53 AM [facility] Blood Venous blood specimen / Unknown Venipuncture / Unknown 05/22/2025 8:02 AM EDT 05/22/2025 8:21 AM EDT Yolette URIBE LAB BLOOD ORDERABLES Final Res ult Performing Organization Address City/[facility]/ZIP Co de Phone Number [facility] [address] [place] [address], [place] [phone] * Tissue exam (05/21/2025 12:59 PM EDT) Final Diagnosis A. Stomach, sleeve gastrectomy: - Portion of stomach with lamina propria hemorrhage. 05/22/2025 12:50 PM EDT [facility] at 1250 EDT Gross Description A. [...] consist of red, bilious and bloody material. Certified Hyperbaric Technician sections are submitted in one cassette to include a perpendicular section of the margin and random stomach, three pieces. TS 05/22/2025 12:50 PM EDT [facility] Disclaimer Unless otherwise specified, all tissue is 10% NB formalin fixed and paraffin embedded. 05/22/2025 12:50 PM EDT [facility] Tissue Stomach structure / Unknown 05/21/2025 12:59 PM EDT 05/21/2025 3:46 PM EDT Makenzie Rodriguez MD LAB PATHOLOGY ORDERABLE S Final Result Performing Organization Address City/[facility]/ZIP Co de Phone Number [facility] [address] [place] [address], [place] [phone] * TH AN ENDOTRACHEAL(NO CHARGE) (05/21/2025 11:34 AM EDT) Narrative Doreen Gordon CRNA - 05/21/2025 11:34 AM EDT Doreen Gordon CRNA 05/21/2025 11:36 AM General Information and Staff Patient location during procedure: OR Resident/FIRE TECHNOLOGY INSTRUCTOR: Doreen Gordon CRNA Performed: resident/FIRE TECHNOLOGY INSTRUCTOR/CAA Performed by: Doreen Gordon CRNA Authorized by: [...] AM EDT No acute pulmonary disease. Code 56028 -------- FINAL REPORT -------- Dictated By: Reji Nicholson Dictated Date: 05/06/2025 07:50 ET Assigned Physician: Reji Nicholson Reviewed and Electronically Signed By: Reji Nicholson Signed Date: 05/06/2025 07:51 ET Workstation ID: [id number] Transcribed By: Self Edit Transcribed Date: 05/06/2025 [...] clear. IMPRESSION: No acute pulmonary disease. Code 39983 -------- FINAL REPORT -------- Dictated By: Rjei Nicholson Dictated Date: 05/06/2025 07:50 ET Assigned Physician: Reji Nicholson Reviewed and Electronically Signed By: Reji Nicholson Signed Date: 05/06/2025 07:51 ET Workstation ID: [id number] Transcribed By: Self Edit Transcribed Date: 05/06/2025 07:50 ET us Makenzie Rodriguez MD IMG XR PROCEDURES Final Result * ECG 12 lead (05/05/2025 2:34 PM EDT) Ventricular Rate ECG 78 BPM GEMUSE Atrial Rate 78 BPM GEMUSE P-R Interval 170 ms GEMUSE QRS Duration 86 ms GEMUSE Q-T Interval 356 ms GEMUSE QTc 405 ms GEMUSE P Wave [place] 46 degrees GEMUSE R [place] -49 degrees GEMUSE T [place] 17 degrees GEMUSE ECG Interpretation Normal sinus [...] ABO Group O 05/06/2025 9:10 AM EDT [facility] Rh Type Positive 05/06/2025 9:10 AM EDT [facility] Antibody Screen Negative 05/06/2025 9:10 AM EDT [facility] Blood Venous blood specimen / Unknown Venipuncture / Unknown 05/05/2025 2:18 PM EDT 05/05/2025 4:17 PM EDT us Makenzie Rodriguez MD LAB BLOOD BANK TEST ORD ERABLES Final Result Performing Organization Address [facility] Co de Phone Number [facility] [address] [place] [address], [place] [phone] * (ABNORMAL) CMP (05/05/2025 2:18 PM EDT) Sodium 139 133 - 145 mmol/L LAB CHEMISTRY METHOD 05/05/2025 4:42 PM EDT [facility] Potassium 4.9 3.5 - 5.5 mmol/L LAB CHEMISTRY METHOD 05/05/2025 4:42 PM EDT [facility] Chloride 105 96 - 110 mmol/L LAB CHEMISTRY METHOD 05/05/2025 4:42 PM EDT [facility] CO2 29 21 - 32 mmol/L LAB CHEMISTRY METHOD 05/05/2025 4:42 PM EDT [facility] Anion Gap 5 3 - 11 LAB CHEMISTRY METHOD 05/05/2025 4:42 PM EDT [facility] Glucose 119(H) 70 - 100 mg/dL LAB CHEMISTRY METHOD 05/05/2025 4:42 PM [facility] BUN 21 5 - 25 mg/dL LAB CHEMISTRY METHOD 05/05/2025 4:42 PM [facility] Creatinine 1.44(H) 0.70 - 1.30 mg/dL LAB CHEMISTRY METHOD 05/05/2025 4:42 PM [facility] eGFR 63 >=60 mL/min/1. 73m2 LAB CHEMISTRY METHOD 05/05/2025 4:42 PM [facility] Comment:Calculation based on the Chronic Kidney Disease Epidemiology Collaboration (CKD-EPI) equation refit without adjustment for race. BUN/Creatinine Ratio 14.6 LAB CHEMISTRY METHOD 05/05/2025 4:42 PM [facility] Calcium 9.3 8.5 - 10.5 mg/dL LAB CHEMISTRY METHOD 05/05/2025 4:42 PM [facility] AST (SGOT) 20 10 - 42 unit/L LAB CHEMISTRY METHOD 05/05/2025 4:42 PM [facility] ALT (SGPT) 30 10 - 60 unit/L LAB CHEMISTRY METHOD 05/05/2025 4:42 PM [facility] Alkaline Phosphatase 128(H) 42 - 121 unit/L LAB CHEMISTRY METHOD 05/05/2025 4:42 PM [facility] Total Protein 6.8 6.0 - 8.0 g/dL LAB CHEMISTRY METHOD 05/05/2025 4:42 PM [facility] Albumin 3.5 3.2 - 5.0 g/dL LAB CHEMISTRY METHOD 05/05/2025 4:42 PM [facility] Total Bilirubin 0.7 0.0 - 1.4 mg/dL LAB CHEMISTRY METHOD 05/05/2025 4:42 PM [facility] Blood Venous blood specimen / Unknown Venipuncture / Unknown 05/05/2025 2:18 PM EDT 05/05/2025 4:17 PM EDT us Makenzie Rodriguez MD LAB BLOOD ORDERABLES Fi nal Result [facility] [address] [place] [address], from Last 3 Months Additional Health Concerns Active Problems Noted Date Diagnosed Date Autogenerated Problem 05/04/2025 Insurance [facility] [employer] Advance Directives * Full Code - [...] currently active code status orders. Care Teams Civil Defense Director Relationship Specialty Start Date End Date Clay Guevara PA [address] [facility][1] [place] [phone] PCP - General Physician Pipe Puller 01/05/25
== END 2025-06-15 16:23 | disposition home or self-care (01) ==
LOC: HO.HGI 15:25
PROVIDERS: PCP Physician Assistant; Visit Provider Internal Medicine
DX: K76.0 Fatty (change of) liver, not elsewhere classified (principal); E11.8 Type 2 diabetes mellitus with unspecified complications; E66.01 Morbid (severe) obesity due to excess calories; K21.9 Gastro-esophageal reflux disease without esophagitis
CPT/HCPCS: 99214

== ENCOUNTER → 2025-06-15 15:25 | Outpatient (BNVA) | payer OTHER, SELFPAY | PROVIDERS: PCP Physician Assistant; Visit Provider Internal Medicine | DX: K21.9 Gastro-esophageal reflux disease without esophagitis (principal); E66.01 Morbid (severe) obesity due to excess calories; E11.8 Type 2 diabetes mellitus with unspecified complications; K76.0 Fatty (change of) liver, not elsewhere classified | CPT/HCPCS: 99212 ==

== ENCOUNTER 2025-06-17 10:38 | Outpatient (REF) | payer OTHER, SELFPAY ==
--- NOTE | ~2025-06-17 | US_ITS ---
EXAMINATION: US COMPLETE ABDOMEN WITH LIVER ELASTOGRAPHY CLINICAL INFORMATION: Fatty change of the liver COMPARISON: Ultrasound 11/20/2024 TECHNIQUE: Real-time imaging of the abdominal viscera. Noninvasive ultrasound liver fibrosis assessment is performed using Jose Martin ElastPQ point quantification shear wave elastography (pSWE) with a C5-2 MHz transducer. Multiple elastography samples are obtained. FINDINGS: Study limited by body habitus. PANCREAS: The visualized pancreatic head and body are normal in appearance. The remainder of the pancreas is obscured from visualization by the overlying bowel gas. ABDOMINAL AORTA: Proximal aorta is obscured. Mid/distal aorta demonstrates caliber within normal limits. INFERIOR VENA CAVA: Visualized portions are normal. LIVER: The liver demonstrates normal contour. Increased parenchymal echogenicity.. No focal lesion or intrahepatic biliary duct dilatation. The right lobe measures 16.9 cm in length. The left lobe measures 12.6 cm in length. Portal flow is hepatopedal Shear wave liver elastography median stiffness is 1.49 m/s (reference: normal median stiffness is 1.3 m/s or less). (Previously measuring 1.76 m/s) IQR/median stiffness to assess sampling precision is 0.48 (reference: good quality data set is IQR/median stiffness of 0.15 or less). GALLBLADDER: The gallbladder is physiologically distended with echogenic bile. No shadowing gallstones. No, polyps, wall thickening or pericholecystic fluid. COMMON BILE DUCT: Normal in caliber measuring 0.3 cm in diameter. RIGHT KIDNEY: No hydronephrosis. No renal calculi or focal parenchymal lesions. The kidney measures 11.1 cm in maximum dimension. LEFT KIDNEY: No hydronephrosis. No renal calculi or focal parenchymal lesions. The kidney measures 11.9 cm in maximum dimension. SPLEEN: Unremarkable. The spleen measures 8.1 cm in maximum dimension. FREE FLUID: None seen. US/US abdomen comp w elastography IMPRESSION: 1. Hepatomegaly. There is generalized increase in hepatic echotexture, consistent with fatty infiltration or hepatocellular disease. Please correlate clinically. No focal hepatic mass or intrahepatic biliary duct dilatation is seen. 2. Liver elastography: Median stiffness measures 1.4 cm/s. Previously measured 1.76 m/s. This correlates with: *Liver Stiffness 1.7-2.1 m/s: Suggestive of compensated advanced chronic liver disease but need further test for confirmation. The sampling precision is suboptimal measuring 0.48. REFERENCE: Society of Radiologists in Ultrasound Liver Stiffness Thresholds (2020): LIVER STIFFNESS THRESHOLDS: *Liver Stiffness equal or less than 1.3 m/s: High probability of being normal. *Liver Stiffness less than 1.7 m/s: In the absence of other known clinical signs, rules out compensated advanced chronic liver disease. *Liver Stiffness 1.7-2.1 m/s: Suggestive of compensated advanced chronic liver disease but need further test for confirmation. *Liver Stiffness over 2.1 m/s: Rules in compensated advanced chronic liver disease. *Liver Stiffness over 2.4 m/s: Suggestive of clinically significant portal hypertension. QUALITY OF DATA SET: *IQR/Median value equal or less than 0.15 implies a quality data set. *IQR/Median value over 0.15 implies a poor quality data set. SIGNIFICANT CHANGE FROM PRIOR EXAM: Significant change if liver stiffness measurement is 10% or greater from prior exam. OTHER CONSIDERATIONS: The stage of liver fibrosis may be overestimated in the setting of acute hepatitis, liver inflammation, elevated liver function tests, hepatic vascular congestion, obstructive cholestasis, non-fasting state, and infiltrative diseases such as amyloidosis and lymphoma. In some patients with NAFLD, the liver stiffness thresholds for compensated advanced chronic liver disease may be lower. In causes other than viral hepatitis and NAFLD, liver stiffness thresholds are not well established. Electronically signed by: Ernesto Clarke MD 06/18/2025 02:06 PM [facility]
--- OUTSIDE RECORDS SUMMARY | 2025-06-17 12:45 | XMS_ITS | Clinical Summary ---
Author Organization [facility] Address [address] [place] [address] Phone Care Team Providers Care Water Manager Name Role Phone Clay Guevara Primary Care Provider [phone] Allergies Active Allergy Reactions Criticality Noted Date [...] (BMI) of 45.0 to 49.9 in adult ([facility] V24, [facility] V28) 05/07/2025 Morbid obesity with BMI of 4 5.0-49.9, adult ([facility] V24, [facility] V28) 04/17/2025 Encounters Date Type Department Care Team Description 05/26/2025 Telephone Bariatric Surgery - [place] [address] [phone] 05/21/2025 11:08 AM EDT Anesthesia Event [facility] Main OR [address] [place] [phone] Freddie Villa DO Burton, Heather, CRNA 05/21/2025 10:00 AM EDT - 05/21/2025 12:30 PM EDT Surgery [facility] OR [address] [place] [phone] Makenzie Rodriguez MD DAVINCI SLEEVE GASTRECTOMY [[id number] (CPT )] 05/21/2025 9:02 AM EDT - 05/22/2025 3:48 PM EDT Hospital Encounter [facility] Medical Surgical Unit [address] [place] [phone] Makenzie Rodriguez MD Morbid obesity with BMI of 45.0-49.9, adult ([facility] V24, [facility] V28) Discharge Disposition: Home or Self Care 05/19/2025 1:15 PM EDT Consult Bariatric Surgery [address] [phone] Makenzie Rodriguez MD Obesity, Class III, BMI 40-49.9 (morbid obesity) ([facility] V28) (Primary Dx); Sleep apnea, unspecified type; Gastroesophageal reflux disease, unspecified whether esophagitis present 05/07/2025 11:00 AM EDT Consult Bariatric Surgery [address] [phone] Carmel Blake, CASIMIRO Class 3 severe obesity with serious comorbidity and body mass index (BMI) of 45.0 to 49.9 in adult, unspecified obesity type ([facility] V24, [facility] V28) (Primary Dx) 05/05/2025 2:40 PM EDT - 05/05/2025 11:59 PM EDT Hospital Encounter [facility] Xray [address] [place] [address] Discharge Disposition: Home or Self Care 04/15/2025 2:30 PM EDT Office Visit Bariatric Surgery - [place] 175 [facility] [address] [place] [address] Makenzie Rodriguez MD Gastroparesis (Primary Dx); Obesity, Class III, BMI 40-49.9 (morbid obesity); Sleep apnea, unspecified type; Type 2 diabetes mellitus with obesity ([facility] V24, [facility] V28); Primary hypertension; Gastroesophageal reflux disease, unspecified whether esophagitis present from Last 3 Months Surgical History Surgery Date Site/Laterality Comments EYE SURGERY RETINAL DETACHMENT AMPUTATION [facility] Medical History Medical History Date Comments Other and unspecified hyperlipidemia 04/18/2005 DX:Other and unspecified hyperlipidemia Morbid obesity ([facility] V24, [facility] V28) 04/18/2005 DX:Morbid obesity ([facility]) Type II or unspecified type diabetes mellitus without mention of complication, not stated as uncontrolled 04/18/2005 DX:Type II or unspecified ty pe diabetes mellitus without mention of complication, not stated as uncontrolled Type 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, uncontrolled(250.42) ([facility] V24, [facility] V28) 02/01/2007 DX:Type II or unspecified ty pe diabetes mellitus with renal manifestations, uncontrolled(250.42) ([facility]) Reflux 07/27/07 DX:Reflux Essential hypertension, benign 05/17/07 D X:Essential hypertension, benign Essential hypertension, benign 05/17/07 D X:Essential hypertension, benign Preglaucoma 07/27/07 DX:Preglaucoma Chronic kidney disease CKD (chronic kidney disease) stage 3, GFR 30-59 ml/min ([facility] V24, [facility] V28) per h&p CVA (cerebral vascular accid ent) ([facility] V24, [facility] V28) right sided weakness Retinopathy due to secondary diabetes mellitus ([facility] V24, [facility] V28) Family History Medical History Relation Name [...] for your loved ones. For example, child care center assistant director or elderly care for an older adult? [...] Care Team (Late st Contact Info) Description 06/23/2025 11:00 AM EST Telemedicine Bariatric Surgery - [place] [address] [phone] Carmel Blake, RD [address] [phone] 06/23/2025 1:15 PM EST Office Visit Bariatric Surgery - [place] [address] [phone] Makenzie Rodriguez MD [address] [place] [phone] 08/03/2025 1:00 PM EST Office Visit Bariatric Surgery - [address] [place] [address] Makenzie Rodriguez MD [address] [place] [phone] Health Maintenance Due Date Last [...] C Screening 01/06/2025 COVID-19 Vaccine ( - 2024-2 6 season) 2025 Influenza Vaccine (#1) 2025 , [...] ENDOTRACHEAL(NO CHARGE) Routine 05/21/2025 11:34 AM EDT [place] [facility] RESTRICTIVE PROCEDURE LONGITUDINAL GASTRECTOMY [...] of5 resultswithin the time period is included. [facility] Signature Glucose POCT 183(H) 70 - 100 mg/dL 05/22/2025 11:07 AM EDT [facility] Blood Capillary blood specimen / Unknown 05/22/2025 11:06 AM EDT 05/22/2025 11:08 AM EDT Makenzie Rodriguez MD LAB POINT OF CA RE TEST DOCKED DEVICE UNSOLICITED RESULTS Final Result [facility] [address] [place] [address], * (ABNORMAL) CBC auto differential (05/22/2025 8:02 AM EDT) Only the most recent of2 resultswithin the time period is included. WBC 10.3 4.8 - 10.8 K/mcL LAB HEMETOLOGY METHOD 05/22/2025 8:33 AM EDT [facility] RBC 4.10(L) 4.50 - 5.50 M/mcL LAB HEMETOLOGY [facility] Hemoglobin 12.1(L) 13.5 - 17.5 g/dL LAB HEMETOLOGY METHOD 05/22/2025 8:33 AM [facility] Hematocrit 35.9(L) 42.0 - 54.0 % LAB HEMETOLOGY METHOD 05/22/2025 8:33 AM [facility] MCV 86.7 79.0 - 98.0 FL LAB HEMETOLOGY METHOD 05/22/2025 8:33 AM EDT [facility] MCH 29.2 27.0 - 32.0 pcg LAB HEMETOLOGY METHOD 05/22/2025 8:33 AM [facility] MCHC 33.7 32.0 - 37.0 g/dL LAB HEMETOLOGY METHOD 05/22/2025 8:33 AM [facility] RDW 13.1 11.0 - 15.0 % LAB HEMETOLOGY METHOD 05/22/2025 8:[facility] Platelets 332 130 - 400 K/mcL LAB HEMETOLOGY METHOD 05/22/2025 8:33 AM [facility] MPV 9.5 7.0 - 11.0 FL LAB HEMETOLOGY METHOD 05/22/2025 8:33 AM [facility] NRBC 0.0 <1.0 % LAB HEMETOLOGY METHOD 05/22/2025 8:33 AM [facility] NRBC Absolute 0.00 <0.10 K/mcL LAB HEMETOLOGY METHOD 05/22/2025 8:33 AM [facility] Neutrophils Relative 75.8 % LAB HEMETOLOGY METHOD 05/22/2025 8:33 AM [facility] Lymphocytes Relative 15.9 % LAB HEMETOLOGY METHOD 05/22/2025 8:33 AM [facility] Monocytes Relative 7.8 % LAB HEMETOLOGY METHOD 05/22/2025 8:33 AM [facility] Eosinophils Relative 0.1 % LAB HEMETOLOGY METHOD 05/22/2025 8:33 AM [facility] Basophils Relative 0.2 % LAB HEMETOLOGY METHOD 05/22/2025 8:33 AM [facility] Immature Granulocytes Relative 0.2 % LAB HEMETOLOGY METHOD 05/22/2025 8:33 AM [facility] Neutrophils Absolute 7.78(H) 1.50 - 7.00 K/mcL LAB HEMETOLOGY METHOD 05/22/2025 8:33 AM [facility] Lymphocytes Absolute 1.63 1.00 - 5.00 K/mcL LAB HEMETOLOGY METHOD 05/22/2025 8:33 AM [facility] Monocytes Absolute 0.80 0.20 - 1.00 K/mcL LAB HEMETOLOGY METHOD 05/22/2025 8:33 AM EDT [facility] Eosinophils Absolute 0.01 0.00 - 0.50 K/[facility] LAB HEMETOLOGY METHOD 05/22/2025 8:33 AM EDT [facility] Basophils Absolute 0.02 0.00 - 0.20 K/[facility] LAB HEMETOLOGY METHOD 05/22/2025 8:33 AM EDT [facility] Immature Granulocytes Absolute 0.02 0.00 - 0.03 K/[facility] LAB HEMETOLOGY METHOD 05/22/2025 8:33 AM EDT [facility] Blood Venous blood specimen / Unknown Venipuncture / Unknown 05/22/2025 8:02 AM EDT 05/22/2025 8:21 AM EDT us Yolette URIBE LAB BLOOD ORDERABLES Final Res ult Performing Organization Address City/[facility]/ZIP Co de Phone Number [facility] [address] [place] [address], [place] [phone] * (ABNORMAL) Magnesium (05/22/2025 8:02 AM EDT) Magnesium 1.6(L) 1.9 - 2.6 mg/dL LAB CHEMISTRY METHOD 05/22/2025 8:53 AM EDT [facility] Blood Venous blood specimen / Unknown Venipuncture / Unknown 05/22/2025 8:02 AM EDT 05/22/2025 8:21 AM EDT us Yolette URIBE LAB BLOOD ORDERABLES Final Res ult [facility] [address] [place] [address], [place] [phone] * (ABNORMAL) Basic metabolic panel (05/22/2025 8:02 AM EDT) Sodium 137 133 - 145 mmol/L LAB CHEMISTRY METHOD 05/22/2025 8:53 AM [facility] Potassium 4.7 3.5 - 5.5 mmol/L LAB CHEMISTRY METHOD 05/22/2025 8:53 AM [facility] Chloride 105 96 - 110 mmol/L LAB CHEMISTRY METHOD 05/22/2025 8:53 AM [facility] CO2 26 21 - 32 mmol/L LAB CHEMISTRY METHOD 05/22/2025 8:53 AM [facility] Anion Gap 6 3 - 11 LAB CHEMISTRY METHOD 05/22/2025 8:53 AM [facility] Glucose 187(H) 70 - 100 mg/dL LAB CHEMISTRY METHOD 05/22/2025 8:53 AM [facility] BUN 21 5 - 25 mg/dL LAB CHEMISTRY METHOD 05/22/2025 8:53 AM [facility] Creatinine 1.19 0.70 - 1.30 mg/dL LAB CHEMISTRY METHOD 05/22/2025 8:53 AM [facility] eGFR 79 >=60 mL/min/1. 73m2 LAB CHEMISTRY METHOD 05/22/2025 8:53 AM [facility] Comment:Calculation based on the Chronic Kidney Disease Epidemiology Collaboration (CKD-EPI) equation refit without adjustment for race. BUN/Creatinine Ratio 17.6 LAB CHEMISTRY METHOD 05/22/2025 8:53 AM [facility] Calcium 9.2 8.5 - 10.5 mg/dL LAB CHEMISTRY METHOD 05/22/2025 8:53 AM [facility] Blood Venous blood specimen / Unknown Venipuncture / Unknown 05/22/2025 8:02 AM EDT 05/22/2025 8:21 AM EDT us Yolette URIBE LAB BLOOD ORDERABLES Final Res ult [facility] [address] [place] [address], [place] [phone] * Tissue exam (05/21/2025 12:59 PM EDT) Final Diagnosis A. Stomach, sleeve gastrectomy: - Portion of stomach with lamina propria hemorrhage. 05/22/2025 12:50 PM EDT [facility] at 1250 EDT Gross Description [...] consist of red, bilious and bloody material. Business Analyst [employer] sections are submitted in one cassette to include a perpendicular section of the margin and random stomach, three pieces. TS 05/22/2025 12:50 PM EDT [facility] Disclaimer Unless otherwise specified, all tissue is 10% NB formalin fixed and paraffin embedded. 05/22/2025 12:50 PM EDT [facility] Tissue Stomach structure / Unknown 05/21/2025 12:59 PM EDT 05/21/2025 3:46 PM EDT us Makenzie Rodriguez MD LAB PATHOLOGY ORDERABLE S Final Result [facility] [address] [place] [address], * TH AN ENDOTRACHEAL(NO CHARGE) (05/21/2025 11:34 AM EDT) Narrative Doreen Gordon CRNA - 05/21/2025 11:34 AM EDT Doreen Gordon CRNA 05/21/2025 11:36 AM General Information and Staff Patient location during procedure: OR Resident/INTERPRETER TRANSLATOR: Doreen Gordon CRNA Performed: resident/INTERPRETER TRANSLATOR/CAA Performed by: Doreen Gordon CRNA Authorized by: [...] Mask difficulty assessment: 0 - not attempted Freddie Villa DO ANESTHESIA ORDERABLES Final Res ult * XR Chest 2 Views (05/05/2025 2:55 PM EDT) Anatomical Region Laterality Modality Body Radiographic Anastacia ging 05/06/2025 7:50 AM EDT Impressions 05/06/2025 7:51 AM EDT No acute pulmonary disease. Code 84227 -------- FINAL REPORT -------- Dictated By: Reji Nicholson Dictated Date: 05/06/2025 07:50 ET Assigned Physician: Reji Nicholson Reviewed and Electronically Signed By: Reji Nicholson Signed Date: 05/06/2025 07:51 ET Workstation ID: [id number] Transcribed By: Self Edit Transcribed Date: 05/06/2025 [...] clear. IMPRESSION: No acute pulmonary disease. Code 05407 -------- FINAL REPORT -------- Dictated By: Reji Nicholson Dictated Date: 05/06/2025 07:50 ET Assigned Physician: Reji Nicholson Reviewed and Electronically Signed By: Reji Nicholson Signed Date: 05/06/2025 07:51 ET Workstation ID: [id number] Transcribed By: Self Edit Transcribed Date: 05/06/2025 07:50 ET Makenzie Rodriguez MD IMG XR PROCEDURES Final Result * ECG 12 lead (05/05/2025 2:34 PM EDT) Ventricular Rate ECG 78 BPM GEMUSE Atrial Rate 78 BPM GEMUSE P-R Interval 170 ms GEMUSE QRS Duration 86 ms GEMUSE Q-T Interval 356 ms GEMUSE QTc 405 ms GEMUSE P Wave [place] 46 degrees GEMUSE R [place] -49 degrees GEMUSE T [place] 17 degrees GEMUSE ECG Interpretation Normal sinus [...] ABO Group O 05/06/2025 9:10 AM EDT [facility] Rh Type Positive 05/06/2025 9:10 AM EDT [facility] Antibody Screen Negative 05/06/2025 9:10 AM EDT [facility] Blood Venous blood specimen / Unknown Venipuncture / Unknown 05/05/2025 2:18 PM EDT 05/05/2025 4:17 PM EDT us Makenzie Rodriguez MD LAB BLOOD BANK TEST ORD ERABLES Final Result Performing Organization Address [facility] Co de Phone Number [facility] [address] [place] [address], * (ABNORMAL) CMP (05/05/2025 2:18 PM EDT) Sodium 139 133 - 145 mmol/L LAB CHEMISTRY METHOD 05/05/2025 4:42 PM [facility] Potassium 4.9 3.5 - 5.5 mmol/L LAB CHEMISTRY METHOD 05/05/2025 4:42 PM [facility] Chloride 105 96 - 110 mmol/L LAB CHEMISTRY METHOD 05/05/2025 4:42 PM T [facility] CO2 29 21 - 32 mmol/L LAB CHEMISTRY METHOD 05/05/2025 4:42 PM T [facility] Anion Gap 5 3 - 11 LAB CHEMISTRY METHOD 05/05/2025 4:42 PM [facility] Glucose 119(H) 70 - 100 mg/dL LAB CHEMISTRY METHOD 05/05/2025 4:42 PM [facility] BUN 21 5 - 25 mg/dL LAB CHEMISTRY METHOD 05/05/2025 4:42 PM [facility] Creatinine 1.44(H) 0.70 - 1.30 mg/dL LAB CHEMISTRY METHOD 05/05/2025 4:42 PM [facility] eGFR 63 >=60 mL/min/1. 73m2 LAB CHEMISTRY METHOD 05/05/2025 4:42 PM [facility] Comment:Calculation based on the Chronic Kidney Disease Epidemiology Collaboration (CKD-EPI) equation refit without adjustment for race. BUN/Creatinine Ratio 14.6 LAB CHEMISTRY METHOD 05/05/2025 4:42 PM [facility] Calcium 9.3 8.5 - 10.5 mg/dL LAB CHEMISTRY METHOD 05/05/2025 4:42 PM [facility] AST (SGOT) 20 10 - 42 unit/L LAB CHEMISTRY METHOD 05/05/2025 4:42 PM [facility] ALT (SGPT) 30 10 - 60 unit/L LAB CHEMISTRY METHOD 05/05/2025 4:42 PM [facility] Alkaline Phosphatase 128(H) 42 - 121 unit/L LAB CHEMISTRY METHOD 05/05/2025 4:42 PM [facility] Total Protein 6.8 6.0 - 8.0 g/dL LAB CHEMISTRY METHOD 05/05/2025 4:42 PM [facility] Albumin 3.5 3.2 - 5.0 g/dL LAB CHEMISTRY METHOD 05/05/2025 4:42 PM [facility] Total Bilirubin 0.7 0.0 - 1.4 mg/dL LAB CHEMISTRY METHOD 05/05/2025 4:42 PM [facility] Blood Venous blood specimen / Unknown Venipuncture / Unknown 05/05/2025 2:18 PM EDT 05/05/2025 4:17 PM EDT Makenzie Rodriguez MD LAB BLOOD ORDERABLES Fi nal Result [facility] [address] [place] [address], from Last 3 Months Additional Health Concerns Active Problems Noted Date Diagnosed Date Autogenerated Problem 05/04/2025 Insurance [facility] [employer] PLAN Advance Directives * Full Code [...] currently active code status orders. Care Teams Water Manager Relationship Specialty Start Date End Date Clay Guevara PA [address] [place] [phone] PCP - General Physician Accounting File Clerk 01/05/25
== END 2025-06-17 10:39 | disposition home or self-care (01) ==
LOC: HO.US 10:38
PROVIDERS: PCP Physician Assistant; Visit Provider Internal Medicine
DX: K76.0 Fatty (change of) liver, not elsewhere classified (principal)
CPT/HCPCS: 76700; 76981

== ENCOUNTER 2025-06-24 14:39 | Outpatient (AMB) | payer OTHER, SELFPAY ==
[2025-06-24 15:19] VITALS: BP 110/78; PULSE 86; RESP 18; O2SAT 99; BMI 45.0
--- NOTE | 2025-06-24 15:19 | A.OFFPC_ITS ---
Vital Signs 06/24/25 15:19 Height 5 ft 9 in Weight 305 lb BMI 45.0 BP 110/78 Blood Pressure Location Lt brachial Position Sitting Respiration 18 Pulse 86 Pulse Source Pulse Oximeter Temp Source Temporal Artery Scan Pulse Oximetry (%) 99 Oxygen Delivery Method Room Air Intake Visit Reasons: f/u DMII/ s/p bariatric surgery Manager Progressive Care Required: No Accompanied by: Self / Same As Patient Allergies NSAIDS (Non-Steroidal Anti-Inflamma Allergy (Unknown, Verified 06/24/25 15:29) Unknown sulfamethoxazole (From Bactrim) Adverse Reaction (Intermediate, Verified 06/24/25 15:29) Elevated renal functions trimethoprim (From Bactrim) Adverse Reaction (Intermediate, Verified 06/24/25 15:29) Elevated renal functions Medication List - Last Reconciled 06/24/25 by Clay Guevara PA-C acetaminophen ER 1,300 mg (2 x 650 mg) PO Q8H PRN 90 days alcohol swabs 1 pad topical QID aspirin (Adult Aspirin Regimen) 81 mg PO DAILY 90 days atorvastatin 80 mg PO BEDTIME 30 days [BARIATRIC WALKER As directed] blood pressure kit-extra large As directed blood pressure monitor As directed blood sugar diagnostic (FreeStyle Lite Strips) As directed to check glucose up to 3 times daily blood-glucose meter (FreeStyle Lite Meter kit) 3 times a day blood-glucose sensor (FreeStyle Kishan 3 Plus Sensor device) Apply 1 new sensor every 15 days as directed to monitor blood glucose continuously. blood-glucose,shank inspector,cont (FreeStyle Kishan 3 [place]) Use daily to monitor blood glucose levels continuously. carvedilol 25 mg PO BID chair, wheel (Wheel chair) LIFETIME USE cholecalciferol (vitamin D3) (Vitamin D3) 25 mcg PO DAILY emtricitabine-tenofovir alafen 200-25 mg (Descovy) 1 tab PO DAILY 30 days famotidine 20 mg PO BEDTIME ferrous sulfate 325 mg PO DAILY furosemide 40 mg (2 x 20 mg) PO DAILY 30 days gabapentin 800 mg PO TID 30 days glucose (Dex4 Glucose Quick Dissolve) 16 grams (4 x 4 gram) PO Q15M PRN hydralazine 100 mg PO BID incontinence pad, liner, disp As directed insulin degludec (Tresiba FlexTouch U-200 insulin) 60 units subcut BEDTIME insulin lispro (Humalog KwikPen U-200 Insulin) subcutaneously daily; 30 units before dinner lancets As directed lancets (FreeStyle Lancets) Use to monitor blood glucose 3 times daily. latex gloves (Latex Gloves, Large) As directed lisinopril 1 tab PO DAILY [manual wheel chair As directed with adjustable leg rests ] melatonin 10 mg PO DAILY miscellaneous medical supply 1 ea miscellaneous DAILY 90 days nifedipine ER 90 mg PO DAILY 90 days omeprazole 20 mg PO BID pen needle, diabetic As directed [Power wheel chair As directed] [Replacement prosthesis for right lower extremity As directed] spironolactone 25 mg PO DAILY 90 days sucralfate 10 mL PO BID tirzepatide (Mounjaro) 5 mg (0.5 mL) subcut QWEEK tramadol 50 mg PO TID PRN 30 days walker (Ultra-Light Rollator misc) As directed [Walker repair As directed] Tobacco use date assessed: 06/24/25 Dental Screening Dental Screen Date: 06/24/25 Did you have a dental visit in the last 12 months?: No Did you have a dental problem in the last 6 months where you did not have access to dental care?: No Was dental information given to patient?: Patient has dentist HPI f/u DMII/ s/p bariatric surgery HPI Details Patient a 39-year-old male here today for a follow-up visit. ? Patient has a past medical history significant for DMII, HTN, HLD, Obesity, CVA, CKD , Amputee ( Right foot), CHF. Class 3 Obesity:? Patient recently underwent bariatric surgery in May of 2025. He reports he is doing well and has lost weight. He reports his starting weight was 330 lb Hypotension--> The patient's home health nurse has noted that his blood pressure is running low, with readings in the 90s/60s, and he is concerned about being on too many blood pressure medications. His current antihypertensive regimen includes carvedilol, furosemide, hydralazine, lisinopril, spironolactone, and nifedipine. Has been diligently following the [place] bariatric program, has been cleared for bariatric surgery that is due for March of 2025. He is nervous about the procedure though nose this surgery may help him significantly with his health. ? .. ? DMII status post right below-knee amputation:: He was followed by [facility] here in [place]. Most recent A1c 6.2.? She continues on Mo njauro . He does report some dietary indiscretion as of lately. ?Had a DM nonhealing foot ulcer in 2017 and needed an amputation.? He does have a prosthesis for his right lower extremity though has significant lymphedema and skin stretching that has not allowed him to have a correct fit for his prosthesis. --> He reports he will be following up w [facility] the vascular surgeon to see if you would be a candidate for revision of his right lower extremity below-knee amputation .. GERD:? Currently taking omeprazole in the morning and famotidine at night. .. Obstructive sleep apnea:? He now has a CPAP machine which he uses a nightly basis with good effect.? He follows a business segment manager. ? .. ? HTN:? Pressures have been better on the low side since his bariatric surgery. Will discontinue his hydralazine and continue monitoring blood pressure with goal blood pressure to be above 100/60 and below 140/90 ? .. ? CKD stage 3 - Followed by acute care certified nursing assistant? whom is managing blood pressure meds. He has been set up for US of his kidney in Aug 2020. Most recent microalbumin very elevated.? [facility] Medical History Acute respiratory disease Depression Insomnia Anxiety DJD (degenerative joint disease) Sleep apnea treated with continuous positive airway pressure (CPAP) Arthritis PAD (peripheral artery disease) CKD (chronic kidney disease) Exposure to bloodborne pathogen Abnormal stress test History of stroke Morbid obesity NOLAN (obstructive sleep apnea) HTN (hypertension) Right below-knee amputee Blind left eye Neuropathy CVA (cerebral vascular accident) (~2018) Sleep apnea Obesity Vitamin D deficiency HLD (hyperlipidemia) GERD (gastroesophageal reflux disease) Below knee amputation Type 2 diabetes mellitus Surgical History History of bariatric surgery History of esophagogastroduodenoscopy (EGD) (10/15/24) Hx of eye surgery History of amputation of right foot Family History Mother Diabetes Father Prostate cancer Paternal Aunt Diabetes Brother No problems noted. Brother No problems noted. Brother No problems noted. Brother No problems noted. Brother No problems noted. Sister No problems noted. Social History Household Members: None Housing: Apartment Are you a primary complex care nurse to a significant other at home: No Do you presently have visiting nurse or other home services: Yes (POULTRY EVISCERATOR daily) 75 years or older and lives alone: No Alcohol intake: never Patient Tobacco Use Status: Never used Tobacco e-Cigarette/Vaping Use: Never Used Second Hand Smoke Exposure: No service: No Current occupational status: disabled Cognitive needs: Yes (walk, wheelchair (w/c weighs 360lbs)) Hearing needs: No Vision needs: Yes (glasses) Questionnaire PHQ-9 Over the last 2 weeks, how often have you been bothered by any of the following problems? 1. Little interest or pleasure in doing things: more than half the days 2. Feeling down, depressed, or hopeless: not at all 6. Feeling bad about yourself - or that you are a failure or have let yourself or your family down: not at all 7. Trouble concentrating on things, such as reading the newspaper or watching television: not at all 8. Moving or speaking so slowly that other people could have noticed. Or the opposite - being so fidgety or restless that you have been moving around a lot more than usual: not at all 9. Thoughts that you would be better off or of hurting yourself in some way: not at all Depression Screening Interpretation: Positive Depression Screening Done: Yes 52368 - PHQ-9 Billing: Patient declined-do not bill Source: Developed by Drs. Flaco Tovar, Muna Baumann, Satnam Pendleton and colleagues, with an educational carmelo from [employer]. Thrive Questionnaire Date Thrive assessed: 06/24/25 I am a: Patient What is your living situation today?: I have a steady place to live Within the past 12 months, did the food you bought not last and you didn't have the money to get more?: Sometimes True Within the past 12 months, did you worry whether your food would run out before you got money to buy more?: Sometimes True Do you have trouble paying for medicines?: No Do you have trouble getting transportation to medical appointments?: No Do you have trouble paying your heating and electricity bill?: Yes Do you have trouble taking care of your child, family member or friend?: No Do you have trouble with day-to-day activities such as bathing, preparing meals, shopping, managing finances, etc.?: Yes Are you currently unemployed and looking for a job?: No Are you interested in more education?: Yes Please select the resources that you would like help with: None Currently or been in a relationship where the following occur: No concerns reported THRIVE Score: 3 AUDIT C Alcohol Use Questionnaire (AUDIT-C) 1. How often do you have a drink containing alcohol?: Never 3. How often do you have six or more drinks on one occasion?: Never Total Score: 0 KAMALA-7 AMB Questionnaire KAMALA-7 Date KAMALA - 7 assessed: 09/17/24 Feeling nervous, anxious, or on edge: 0 = Not at all Not being able to stop or control worryin = Not at all Worrying too much about different things: 0 = Not at all Trouble relaxin = Not at all Being so restless that it is hard to sit still: 0 = Not at all Becoming easily annoyed or irritable: 0 = Not at all Feeling afraid as if something awful might happen: 0 = Not at all Total KAMALA-7 score (0-4 normal; 5-9 mild; 10-14 moderate; 15-21 severe): 0 Source: Developed by Drs. Flaco Tovar, Muna Baumann, Satnam Pendleton and colleagues, with an educational carmelo from [employer]. KAMALA-7 Assessment Billing KAMALA-7 Assessment Tool: KAMALA-7 Assessment 60910 Review of Systems Const Denies headache(s) Eyes Denies loss of vision ENT Denies vertigo, Denies dizziness, Denies headache(s) and Denies sore throat Card Denies chest pain, Denies leg edema and Denies lightheadedness Resp Denies cough, Denies hemoptysis and Denies wheezing GI Denies abdominal pain, Denies melena, Denies constipation, Denies diarrhea and Denies vomiting Denies dysuria, Denies urinary frequency and Denies urinary urgency Musc Denies arthralgias, Denies joint swelling, Denies numbness and Denies tingling Neuro Denies Abnormal speech present, Denies behavioral changes, Denies vertigo, Denies dizziness, Denies headache(s), Denies loss of vision, Denies memory loss, Denies numbness and Denies tingling Psych Denies anxiety, Denies behavioral changes, Denies depression, Denies memory loss and Denies panic attacks Eugenio/Lymph Denies easy bleeding and Denies easy bruising Aller/Immun Denies wheezing Physical exam (Primary Care) Vital Signs: Last Vital Signs Pulse 86 06/24/25 15:19 Resp 18 06/24/25 15:19 BP 110/78 06/24/25 15:19 Pulse Ox 99 06/24/25 15:19 Oxygen Delivery Method Room Air 06/24/25 15:19 BMI result Body Mass Index 45.0 Tobacco/Smoking Status: Tobacco use Status Tobacco use date assessed 06/24/25 06/24/25 15:26 Patient Tobacco Use Status Never used Tobacco 06/24/25 15:26 e-Cigarette/Vaping Use Never Used 06/24/25 15:26 Depression Screening Interpretation: Positive Thrive Assessment: Date of Thrive Assessment Date Thrive assessed 06/24/25 06/24/25 15:26 Currently or been in a relationship where the following occur: No concerns reported Const General: healthy appearing, no acute distress, alert and awake Nutritional Appearance: well nourished Orientation/consciousness: oriented to person, oriented to place and oriented to time HENMT Ears: TM's normal bilaterally General nose exam: Normal nasal mucous membranes and turbinates present Eyes Conjunctivae: conjunctivae normal Sclerae: sclerae normal Pupils: Equal, round and reactive pupils present Neck Neck: Yes no lymphadenopathy and Yes no JVD Thyroid: Thyroid normal Carotids: no bruits Resp Effort & Inspection: normal respiratory effort and not tachypneic Auscultation: no crackles, no rales, no rhonchi and no wheezes Cardio Rate: regular rate Rhythm: regular rhythm Heart sounds: no murmurs and normal S1 and S2 GI Palpation (GI): Soft to palpation, nontender, no hepatomegaly and no splenomegaly Auscultation: normal bowel sounds Skin General skin exam: no rashes or lesions noted and dry skin Neuro General: oriented to person, oriented to place and oriented to time Cranial nerves: Yes Equal, round and reactive pupils present Speech: No Abnormal speech present Gait exam (Neuro): Normal gait present Motor exam (neuro): no tremor noted Extrem Other: RIGHT LOWER EXTREMITY BELOW-KNEE AMPUTATION Right upper extremity: ROM limited Left upper extremity: full ROM Right lower extremity: full ROM; no edema Left lower extremity: full ROM; no edema Psych Mental Status: mental status grossly normal Speech and movement: Normal speech and movement present Affect: normal affect Attitude: cooperative Thought process: Normal thought process present Coding Level of Care Code Est Pt Level 4 (90744) Diagnoses Essential hypertension I10 Hypertension type: essential hypertension Hyperlipidemia, unspecified hyperlipidemia type E78.5 Hyperlipidemia type: unspecified Type 2 diabetes mellitus with unspecified complications E11.8 Cerebrovascular accident (CVA) due to embolism of cerebral artery I63.40 CVA mechanism: embolism Precerebral and cerebral artery: unspecified cerebral artery Class 3 obesity E66.813 Status post bariatric surgery Z98.84 Additional Codes KAMALA-7 Assessment Billing - KAMALA-7 Assessment Tool: KAMALA-7 Assessment 63451 ([id number]) Assessment & Plan Assessment & Plan (1) HTN (hypertension): Code(s): I10 - Essential (primary) hypertension Category: Medical Qualifiers: Hypertension type: essential hypertension Qualified Code(s): I10 - Essential (primary) hypertension Plan: Patient's blood pressure on low side. Will hold his hydralazine for now. He will continue all other antihypertensive. We will consider reducing dose of nifedipine and blood pressure remains low. Goal blood pressures to be below 140/90 and above 100/60 (2) HLD (hyperlipidemia): Code(s): E78.5 - Hyperlipidemia, unspecified Category: Medical Qualifiers: Hyperlipidemia type: unspecified Qualified Code(s): E78.5 - Hyperlipidemia, unspecified Plan: Patient continues on statin therapy with decent affect. Most recent lipid panel showing good control of his total cholesterol and LDL. Goal LDL is to be below 100 (3) Type 2 diabetes mellitus with unspecified complications: Code(s): E11.8 - Type 2 diabetes mellitus with unspecified complications Category: Medical Plan: Continues to follow endocrinology here in [place]. Patient's type 2 diabetes well controlled . His insulin doses particularly his preprandial short-acting insulin on have needed reduction in dose and discontin uation due to low blood sugars ever since his bariatric surgery. (4) CVA (cerebral vascular accident): Onset Date: ~2018 Comment: weakness on right side Code(s): I63.9 - Cerebral infarction, unspecified Category: Medical Qualifiers: CVA mechanism: embolism Precerebral and cerebral artery: unspecified cerebral artery Qualified Code(s): I63.40 - Cerebral infarction due to embolism of unspecified cerebral artery Plan: Patient has a history of CVA with right-sided neuromuscular weakness. Continues on high dose statin therapy and aspirin indefinitely. Goal LDL is to be below 100 (5) Class 3 obesity: Code(s): E66.813 - Obesity, class 3 Category: Medical Plan: Patient's BMI remains above 40 and will continue working on weight reduction with his bariatric program. (6) Status post bariatric surgery: Code(s): Z98.84 - Bariatric surgery status Category: Surgical Plan: Patient is 1 month status post bariatric surgery. He is doing well, he reports he feels well as he is able to reduce doses of medication and is feeling encouraged about the future. Orders: Orders Influenza [id number] Immunization Today Z23 - Encounter for immunization Medications: New Fluarix [id number] (PF) (flu vac ts (6mos up)-PF) 0.5 mL IM ONCE 0.5 mL 0RF NS Z23 - Encounter for immunization
--- OUTSIDE RECORDS SUMMARY | 2025-06-25 03:12 | XMS_ITS | Encounter Summary ---
Author Organization [facility], Address [address] [place] [address] Phone Care Team Providers Care Drill Rig Operator Helper Name Role Phone Clay Guevara Primary Care Provider [phone] Encounter Details Date Type Department Care Team (Late st Contact Info) Description 04/28/2021 Documentation Only [facility], [address] [place] [address] Connie Stafford PA Social History Tobacco Use [...] on filedocumented in this encounter Care Teams Drill Rig Operator Helper Relationship Specialty Start Date End Date Clay Guevara PA [address], [address] [place], [place] [phone] PCP - General Physician Coating Mixer 06/23/20 documented as of this encounter
--- OUTSIDE RECORDS SUMMARY | 2025-06-25 03:12 | XMS_ITS | Encounter Summary ---
Author Organization [facility], Address [address] [place] [address] Phone Care Team Providers Care Skein Yarn Drier Name Role Phone Clay Guevara Primary Care Provider [phone] Reason for Visit * Reason Comments Med Refill Encounter Details Date Type Department Care Team (Late st Contact Info) Description 12/15/2023 Refill [facility], [address] [place] [phone] Lucio Hancock MD [address] [place] [phone] Social History Tobacco Use Types Packs/Day Years [...] on filedocumented in this encounter Care Teams Skein Yarn Drier Relationship Specialty Start Date End Date Clay Guevara PA [address], [address] [place], [place] [phone] PCP - General Physician Manufacturing Maintenance Manager 06/23/20 documented as of this encounter
--- OUTSIDE RECORDS SUMMARY | 2025-06-25 03:12 | XMS_ITS | Clinical Summary ---
Author Organization [facility], Address [address] [place] [address] Phone Care Team Providers Care Legal Analyst Name Role Phone Clay Guevara Primary [...] Visit [facility] [address] [place] [address] Lucio Hancock MD Stage 3a chronic kidney disease (HCC) (Primary Dx) from Last 3 Months Family History Medical [...] PM EDT) Hemoglobin A1C 7.5(H) (4.0-5.6) % [facility] Comment: MONITORING: In known diabetic patients, hemoglobin A1c targets should be discussed with health care provider. DIAGNOSTIC USE: The [place] Diabetes Association (ADA) and the World Health [...] Supplement 1 Testing performed or reported by [facility], a Service of [facility], [address] [place] [id number] Marco Delgado MD, [employer] Retailer Sales Consultant GOOD# [id number] Blood specimen (specimen) Venous blood / Unknown 10/27/2021 3:46 PM EDT 10/27/2021 4:03 PM EDT us Connie URIBE LAB BLOOD ORDERABLES Final Res ult [facility] from Last 3 Months or Most Recently Relevant to Health Maintenance Insurance [facility] Health[employer] Care Teams Legal Analyst Relationship Specialty Start Date End Date Clay Guevara PA [address], [address] [place] [address] PCP - General Physician Truck Driver Rubbish Collector 06/23/20
--- OUTSIDE RECORDS SUMMARY | 2025-06-25 03:12 | XMS_ITS | Encounter Summary ---
Author Organization [facility], Address [address] [place] [address] Phone Care Team Providers Care Orthodontic Technician Assistant Name Role Phone Clay Guevara Primary Care Provider [phone] Reason for Visit * Reason Comments Med Refill Encounter Details Date Type Department Care Team (Late st Contact Info) Description 11/19/2023 Refill [facility], [address] [place] [phone] Lucio Hancock MD [address] [place] [phone] Social History Tobacco Use Types Packs/Day Years [...] on filedocumented in this encounter Care Teams Orthodontic Technician Assistant Relationship Specialty Start Date End Date Clay Guevara PA [address], [address] [place], [place] [phone] PCP - General Physician Network Cabler 06/23/20 documented as of this encounter
--- OUTSIDE RECORDS SUMMARY | 2025-06-25 03:12 | XMS_ITS | Encounter Summary ---
Author Organization [facility], Address [address] [place] [address] Phone Care Team Providers Care Turkey Boner Name Role Phone Clay Guevara Primary Care Provider [phone] Encounter Details Date Type Department Care Team (Late st Contact Info) Description 04/16/2024 Documentation Only [facility], [address] [place] [address] Jean [place], [place] [address] [place] [address] Social History Tobacco Use Types [...] on filedocumented in this encounter Care Teams Turkey Boner Relationship Specialty Start Date End Date Clay Guevara PA [address], [address] [place], [place] [phone] PCP - General Physician Music Rehabilitation Therapist 06/23/20 documented as of this encounter
--- OUTSIDE RECORDS SUMMARY | 2025-06-25 03:12 | XMS_ITS | Encounter Summary ---
Author Organization [facility], Address [address] [place] [address] Phone Care Team Providers Care Outside Sales Representative Name Role Phone Clay Guevara Primary Care Provider [phone] Reason for Visit * Reason Onset Date Comments care home visit 08/14/2019 CKDIII/HTN Encounter Details Date Type Department Care Team (Late st Contact Info) Description 08/14/2019 Documentation Only [facility] [address] [place] [address] Connie Stafford PA Social History [...] on filedocumented in this encounter Care Teams Outside Sales Representative Relationship Specialty Start Date End Date Clay Guevara PA [address], [address] [place] [address] PCP - General Physician Director Of Cardiology 06/23/20 documented as of this encounter
== END 2025-06-24 16:01 | disposition home or self-care (01) ==
LOC: HO.HMCH 14:40
PROVIDERS: PCP Physician Assistant; Visit Provider Physician Assistant
DX: E11.69 Type 2 diabetes mellitus with other specified complication (principal); I63.40 Cerebral infarction due to embolism of unspecified cerebral artery; E66.813 Obesity, class 3; Z68.42 Body mass index [BMI] 45.0-49.9, adult; I10 Essential (primary) hypertension; E78.5 Hyperlipidemia, unspecified; Z98.84 Bariatric surgery status; Z23 Encounter for immunization

== ENCOUNTER → 2025-06-24 14:39 | Outpatient (BNVA) | payer OTHER, SELFPAY | PROVIDERS: PCP Physician Assistant; Visit Provider Physician Assistant | DX: I10 Essential (primary) hypertension (principal); E11.8 Type 2 diabetes mellitus with unspecified complications; E78.5 Hyperlipidemia, unspecified; I63.40 Cerebral infarction due to embolism of unspecified cerebral artery; E66.813 Obesity, class 3; Z98.84 Bariatric surgery status; Z68.42 Body mass index [BMI] 45.0-49.9, adult | CPT/HCPCS: 90471; 90656; 96127; 99212 ==

== ENCOUNTER 2025-07-08 15:04 | Outpatient (AMB) | payer OTHER, SELFPAY ==
--- NOTE | 2025-07-08 15:13 | MHC.OFFVIS ---
Intake Visit Reasons: X-rays and nail care Intake Note: Jerome is a 39 year old male who presents today as a new patient for a bilateral diabetic foot. Patient report he is doing good. He was wondering about his toe nails being cut. Allergies NSAIDS (Non-Steroidal Anti-Inflamma Allergy (Unknown, Verified 07/08/25 15:14) Unknown sulfamethoxazole (From Bactrim) Adverse Reaction (Intermediate, Verified 07/08/25 15:14) Elevated renal functions trimethoprim (From Bactrim) Adverse Reaction (Intermediate, Verified 07/08/25 15:14) Elevated renal functions HPI HPI X-rays and nail care: Details: This patient is a 39-year-old male with past medical history of diabetes mellitus type 2, CKD, CVA with right-sided weakness, hypertension, GERD, right hip arthritis, right below-knee amputation, and left eye blindness. He recently underwent bariatric surgery and states A1 successfully and he has lost 30 lb of far. He has also noticed less left ankle swelling. He was seen for follow up evaluation of his left foot painful toenails as well as left ankle swelling. History: At baseline, the patient ambulates using a walker a few times a day, states he is able to also climbs stairs. He was seen today in a wheelchair. He states his limitation in walking is both due to his amputation as well as right hip pain. He mentions that he has a prosthetic leg however he is not wearing one today. Patient states he was diagnosed with type 2 diabetes at the age of 14. He had not treated his diabetes until his 30s when he started having several health complications including his amputation. He states his right below-knee amputation started with a blister/infection to his foot which led to subsequent below-knee amputation. He also notes that he has excess tissue in his right leg and is planned for revision amputation/plastics closure with Plastic surgery in the future. REPLACED BY [facility] Medical History Acute respiratory disease Depression Insomnia Anxiety DJD (degenerative joint disease) Sleep apnea treated with continuous positive airway pressure (CPAP) Arthritis PAD (peripheral artery disease) CKD (chronic kidney disease) Exposure to bloodborne pathogen Abnormal stress test History of stroke Morbid obesity NOLAN (obstructive sleep apnea) HTN (hypertension) Right below-knee amputee Blind left eye Neuropathy CVA (cerebral vascular accident) (~2019) Sleep apnea Obesity Vitamin D deficiency HLD (hyperlipidemia) GERD (gastroesophageal reflux disease) Below knee amputation Type 2 diabetes mellitus Surgical History History of bariatric surgery History of esophagogastroduodenoscopy (EGD) (10/15/24) Hx of eye surgery History of amputation of right foot Family History Mother Diabetes Father Prostate cancer Paternal Aunt Diabetes Brother No problems noted. Brother No problems noted. Brother No problems noted. Brother No problems noted. Brother No problems noted. Sister No problems noted. Social History Household Members: None Housing: Apartment Are you a primary hourly caregiver to a significant other at home: No Do you presently have visiting nurse or other home services: Yes ([employer] daily) 75 years or older and lives alone: No Alcohol intake: never Patient Tobacco Use Status: Never used Tobacco e-Cigarette/Vaping Use: Never Used Second Hand Smoke Exposure: No service: No Current occupational status: disabled Cognitive needs: Yes (walk, wheelchair (w/c weighs 360lbs)) Hearing needs: No Vision needs: Yes (glasses) Review of Systems Const All systems reviewed & are unremarkable except as noted in HPI and below Physical Exam Extrem Other: *Bilateral Lower Extremity Focused Diabetic Foot Exam Vascular: DP/PT 2/4 left foot, CFT<3s to digits, TG warm to cool, no pitting or nonpitting left foot edema, significant perimalleolar left ankle tissue, pedal hair absent Derm: Skin: No open lesions, ulcerations, or calluses to the left foot. There is a healed dorsal lateral skin patch from a previous wound. Interdigital spaces: Clear, no maceration or fungal infection. Nails: Thickened elongated dystrophic toenails left foot x5 Neuro: Protective sensation grossly diminished to the left lower extremity. Msk: Status post right below-knee amputation with at least 6-8 inches of excess tissue distal to the transected tibia/fibula. Deformities: Pes planus left foot type. Significant lymphedema/adipose tissue left medial ankle measuring 17 cm in width. Muscle strength: 4/5 left lower extremity. Gait: Nonweightbearing in wheelchair. Footwear Assessment: Shoes inspected; appropriate fit, no excessive wear, or foreign objects noted. Office Procedures AMB Debridement/Avulsion Podia Details: AMB Debridement/Avulsion Podia Details: Procedure: Nail debridement Location: 5 nails left foot Anesthesia: N/A Description: The affected toenails were cleansed with an antiseptic solution. Using sterile nail nippers, dystrophic and mycotic nail material was carefully debrided and reduced in thickness. Care was taken to avoid trauma to the surrounding skin and nail bed. All debris was removed as tolerated. The area was inspected for signs of infection or ulceration. Patient tolerated the procedure well without complications. Tolerance: Patient tolerated procedure well, no immediate complications. Class A & B findings as per physical exam findings above. The patient has a diagnosis of diabetes mellitus and presents with elongated, thickened toenails. Due to underlying diabetic neuropathy and mild vascular disease findings, the patient is at increased risk for complications such as ulceration, infection, and difficulty with self-care. Debridement of elongated toenails is medically necessary to prevent development of pressure-related lesions, reduce risk of secondary infection, and maintain foot health in high-risk comorbidities. 40357-Ccczpcpezac of Nail <6 Procedure code (CPT) selection complete 55516-[id number] of Nail <6 Procedure code (CPT) selection complete Assessment & Plan Assessment & Plan (1) Tinea: Code(s): B35.9 - Dermatophytosis, unspecified Category: Medical Plan: Debrided elongated nails x5 left foot. Follow up in 9 weeks. (2) Left leg swelling: Code(s): M79.89 - Other specified soft tissue disorders Category: Medical Plan: Left foot and ankle x-rays pending Left ankle lipedema measures 17 cm today (3) Amputated right leg: Code(s): S88.911A - Complete traumatic amputation of right lower leg, level unspecified, initial encounter Category: Medical Plan: Recommended revision right below-knee amputation with vascular surgery (or plastic surgery as per patient's current plan) to accommodate for better prosthetic limb. However, rest of care per vascular/past surgery team. (4) Type 2 diabetes mellitus with unspecified complications: Code(s): E11.8 - Type 2 diabetes mellitus with unspecified complications Category: Medical Plan: Risk Stratification: No current ulceration, infection, or pre-ulcerative lesion. The patient has significant loss of protective sensation and arterial studies that show mild peripheral arterial disease. Patient is at high risk for diabetic foot complications at this time. Recommendations: Continue routine foot care and daily self-inspection. Recommend moisturizing daily. Recommend supportive proper fitting shoe-wear. Reinforced diabetic foot education and risks from peripheral neuropathy. Explained that he must achieve glycemic control and reduce his A1c. Even though there are no ulcerative lesions at this time, he is still high risk of below-knee amputation left leg. Coding Level of Care Code Est Pt Level 3 (31564) Diagnoses Tinea B35.9 Left leg swelling M79.89 Amputated right leg S88.911A Type 2 diabetes mellitus with unspecified complications E11.8 CPT Codes Skin Debridement - CPT: 86090-Qgsxzmzvqnr of Nail <6 ([id number]) Time Spent (min) 20
== END 2025-07-08 15:40 | disposition home or self-care (01) ==
LOC: HO.HPODS 15:05
PROVIDERS: PCP Physician Assistant; Visit Provider Student in an Organized Health Care Education/Training Program
DX: E11.8 Type 2 diabetes mellitus with unspecified complications (principal); B35.9 Dermatophytosis, unspecified; M79.89 Other specified soft tissue disorders; S88.911A Complete traumatic amputation of right lower leg, level unspecified, initial encounter
CPT/HCPCS: 11720; 99213

== ENCOUNTER → 2025-07-08 15:04 | Outpatient (BNVA) | payer OTHER, SELFPAY | PROVIDERS: PCP Physician Assistant; Visit Provider Student in an Organized Health Care Education/Training Program | DX: E11.8 Type 2 diabetes mellitus with unspecified complications (principal); M79.89 Other specified soft tissue disorders; Z89.511 Acquired absence of right leg below knee; Z98.84 Bariatric surgery status | CPT/HCPCS: 11720; 99212 ==

== ENCOUNTER 2025-07-16 14:00 | Outpatient (AMB) | payer OTHER, SELFPAY ==
--- NOTE | 2025-07-16 14:04 | MHC.OFFVIS ---
Intake Visit Reasons: PRN Follow up BKA revision check Intake Note: Patient presents for BKA revision check. BKA done around 8 years ago, patient would like to see if a revision can be done. Accompanied by: Self / Same As Patient Allergies NSAIDS (Non-Steroidal Anti-Inflamma Allergy (Unknown, Verified 07/16/25 14:07) Unknown sulfamethoxazole (From Bactrim) Adverse Reaction (Intermediate, Verified 07/16/25 14:07) Elevated renal functions trimethoprim (From Bactrim) Adverse Reaction (Intermediate, Verified 07/16/25 14:07) Elevated renal functions HPI HPI PRN Follow up BKA revision check: Details: The patient is a 39 year old male presenting for evaluation for revision surgery of a prior below-knee amputation. He is wheelchair-bound and has a history of lymphedema. The patient was last seen in this clinic approximately a year and a half ago for lymphedema. The original below-knee amputation was performed in [place] secondary to a diabetic foot ulcer. He is now seeking a revision surgery because of excess soft tissue on the residual limb, which is impeding a proper fit for his a prosthesis. The patient reports having undergone weight loss surgery, after which he lost at least 90 pounds. He notes that since the weight loss, he is not retaining as much water and the edema in his contralateral ankle has improved significantly. He recalls being seen by a plastic surgeon in the past for the revision, but surgery was not performed at that time because he was heavier. He was referred for the current evaluation by his inspector integrated circuits, Dr. Auguste. [facility] Medical History Acute respiratory disease Depression Insomnia Anxiety DJD (degenerative joint disease) Sleep apnea treated with continuous positive airway pressure (CPAP) Arthritis PAD (peripheral artery disease) CKD (chronic kidney disease) Exposure to bloodborne pathogen Abnormal stress test History of stroke Morbid obesity NOLAN (obstructive sleep apnea) HTN (hypertension) Right below-knee amputee Blind left eye Neuropathy CVA (cerebral vascular accident) (~2018) Sleep apnea Obesity Vitamin D deficiency HLD (hyperlipidemia) GERD (gastroesophageal reflux disease) Below knee amputation Type 2 diabetes mellitus Surgical History History of bariatric surgery History of esophagogastroduodenoscopy (EGD) (10/15/24) Hx of eye surgery History of amputation of right foot Family History Mother Diabetes Father Prostate cancer Paternal Aunt Diabetes Brother No problems noted. Brother No problems noted. Brother No problems noted. Brother No problems noted. Brother No problems noted. Sister No problems noted. Social History Household Members: None Housing: Apartment Are you a primary managed care analyst to a significant other at home: No Do you presently have visiting nurse or other home services: Yes ([employer]OR daily) 75 years or older and lives alone: No Alcohol intake: never Patient Tobacco Use Status: Never used Tobacco e-Cigarette/Vaping Use: Never Used Second Hand Smoke Exposure: No service: No Current occupational status: disabled Cognitive needs: Yes (walk, wheelchair (w/c weighs 360lbs)) Hearing needs: No Vision needs: Yes (glasses) Review of Systems Const All systems reviewed & are unremarkable except as noted in HPI and below Reports no additional complaints ENT Reports Normal hearing present Card Denies chest pain, Denies chest pain at rest, Denies chest pain with activity and Denies pedal edema Resp Denies cough GI Denies abdominal pain Musc Denies abnormal gait, Denies muscle cramps and Denies radiating pain into limb Skin/Breast Denies skin ulcer and Denies wounds Neuro Reports Normal hearing present and Denies abnormal gait Psych Reports no additional complaints Physical Exam Const General: cooperative, healthy appearing and comfortable Orientation/consciousness: oriented to person, oriented to place and oriented to time HEENT Head: Yes normal to inspection Neck Neck: Yes normal visual inspection Carotids: no bruits Chest Chest palpation & inspection: normal inspection of the chest Resp Effort & Inspection: normal respiratory effort and able to speak in complete sentences Auscultation: clear to auscultation bilaterally, no crackles, no rales, no rhonchi and no wheezes Cardio Rate: regular rate Rhythm: regular rhythm Heart sounds: S1 normal heart sound present and S2 normal heart sound present Bruits: no carotid bruits Peripheral pulses: Peripheral pulses 2+ throughout GI Inspection: Yes normal to inspection Skin Other: Excessive skin on right below-knee amputation site Wounds: amputation site Hair: normal Neuro General: oriented to person, oriented to place and oriented to time Cranial nerves: Yes CN's II-XII intact bilaterally and Yes Normal hearing present Cognition (Neuro): normal cognition Motor exam (neuro): 5/5 motor strength present throughout Extrem Other: venous exam: No significant superficial varicosities or spider telangiectasias, minimal edema General: No clubbing, No cyanosis and No edema Psych Appearance: grossly normal Mental Status: mental status grossly normal Speech and movement: Normal speech and movement present Assessment & Plan Assessment & Plan (1) PAD (peripheral artery disease): Code(s): I73.9 - Peripheral vascular disease, unspecified Category: Medical Plan: In short patient has poor right below-knee amputation. Issue is that because of the shape and form of this he is unable to properly use a prosthetic in become more mobile. Due to his young age he would expect him to be significantly more mobile than he is at the current time. He has lost a fair amount of weight in appears to be motivated to become active. I have taken the liberty of ordering a CT angiogram with runoff to better elucidate the bony structures the blood flow down to that stump. Pending that we can plan for revision of the right below-knee amputation. This was discussed in detail with the patient and he was in agreement. Thank you for allowing us to assist in his care. Orders: Orders Blood Urea Nitrogen Today I73.9 - Peripheral vascular disease, unspecified Creatinine Today I73.9 - Peripheral vascular disease, unspecified CT angio abd aorta runoff Today I73.9 - Peripheral vascular disease, unspecified Coding Level of Care Code Est Pt Level 4 (03656) Diagnoses PAD (peripheral artery disease) I73.9
--- OUTSIDE RECORDS SUMMARY | 2025-07-16 21:30 | XMS_ITS | Clinical Summary ---
Author Organization [facility] Address [address] [place] [address] Phone Care Team Providers Care Research Hydraulic Engineer Name Role Phone Clay Guevara Primary [...] the skin at bedtime. 5 Active HumaLOG KwikPen Insulin 200 unit/mL (3 [...] mouth 3 (three) times a day. Active simethicone (MYLICON) 80 mg chewable tablet [...] Amount: 30 mg 12 tablet 5 Active acetaminophen (TYLENOL) 500 mg tablet Take 2 tablets (1,000 mg total) by mouth every 8 (eight) hours. 180 tablet 5 Active acetaminophen (TYLENOL) 500 mg tablet Take 2 tablets (1,000 mg total) by mouth every 8 (eight) hours. 180 tablet 5 06/23/20 25 Discontinu ed(Reorder ) Active Problems Problem Noted Date Diagnosed Date Class 3 severe obesity with serious comorbidity and body mass index (BMI) of 45.0 to 49.9 in adult 05/07/2025 Morbid obesity with BMI of 45.0-49.9, adult 04/06 Encounters Date Type Department Care Team Description 06/23/2025 1:15 PM EST Office Visit Bariatric Surgery - [address] [phone] Makenzie Rodriguez MD S/P bariatric surgery (Primary Dx); Obesity, Class III, BMI 40-49.9 (morbid obesity) ([facility] V28) 06/23/2025 11:00 AM EST Telemedicine Bariatric Surgery - [address] [phone] S/P bariatric surgery (Primary Dx) 05/26/2025 Telephone Bariatric Surgery - [address] [phone] 05/21/2025 11:08 AM EDT Anesthesia Event [facility] [address] [place] [phone] Freddei Villa DO Burton, Heather, CRNA 05/21/2025 10:00 AM EDT - 05/21/2025 12:30 PM EDT Surgery [facility] OR [address] [place] [phone] Makenzie Rodriguez MD DAVINCI SLEEVE GASTRECTOMY [25723 (CPT )] 05/21/2025 9:02 AM EDT - 05/22/2025 3:48 PM EDT Hospital Encounter [facility] [address] [place] [address] Makenzie Rodriguez MD Morbid obesity with BMI of 45.0-49.9, adult ([facility] V24, [facility] V28) Discharge Disposition: Home or Self Care 05/19/2025 1:15 PM EDT Consult Bariatric Surgery - [address] [phone] Makenzie Rodriguez MD Obesity, Class III, BMI 40-49.9 (morbid obesity) ([facility] V28) (Primary Dx); Sleep apnea, unspecified type; Gastroesophageal reflux disease, unspecified whether esophagitis present 05/07/2025 11:00 AM EDT Consult Bariatric Surgery - [place] [address] [facility] [address] [place] [address] Carmel Blake, RD Class 3 severe obesity with serious comorbidity and body mass index (BMI) of 45.0 to 49.9 in adult, unspecified obesity type ([facility] V24, [facility] V28) (Primary Dx) 05/05/2025 2:40 PM EDT - 05/05/2025 11:59 PM EDT Hospital Encounter [facility] [address] [place] [address] Discharge Disposition: Home or Self Care from Last 3 Months Surgical History Surgery Date Site/Laterality Comments EYE SURGERY RETINAL DETACHMENT AMPUTATION RBKA Medical History Medical History Date Comments Other and unspecified hyperlipidemia 04/18/2005 DX:Other and unspecified hyperlipidemia Morbid obesity ([facility] V24, [facility] V28) 04/18/2005 DX:Morbid obesity (HCC) Type II or unspecified type diabetes mellitus without mention of complication, not stated as uncontrolled 04/18/2005 DX:Type II or unspecified ty pe diabetes mellitus without mention of complication, not stated as uncontrolled Type 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, uncontrolled(250.42) ([facility] V24, [facility] V28) 02/01/2007 DX:Type II or unspecified ty pe diabetes mellitus with renal manifestations, uncontrolled(250.42) ([facility]) Reflux 07/27/07 DX:Reflux Essential hypertension, benign 05/17/07 D X:Essential hypertension, benign Essential hypertension, benign 05/17/07 D X:Essential hypertension, benign Preglaucoma 07/27/07 DX:Preglaucoma Chronic kidney disease CKD (chronic kidney disease) stage 3, GFR 30-59 ml/min ([facility] V24, [facility] V28) per h&p CVA (cerebral vascular accid ent) ([facility] V24, [facility] V28) right sided weakness Retinopathy due to secondary diabetes mellitus ([facility] V24, [facility] V28) Family History Medical History Relation Name [...] for your loved ones. For example, child welfare specialist or elderly care for an older adult? [...] or Bacon 05/21/2025 3: 58 PM EDT Last Filed Vital Signs Vital Sign Reading Time Taken Comments Blood Pressure 155/82 06/23/2025 1:17 PM EST Pulse 92 06/23/2025 1:17 PM EST Temperature 36.7 C (98.1 F) 06/23/2025 1:17 PM EST Respiratory Rate 18 05/22/2025 7:45 AM EDT Oxygen Saturation 99% 05/22/2025 7:45 AM EDT Inhaled Oxygen Concentration - - Weight 140 kg (309 lb) 06/23/2025 1:17 PM EST Height 175.3 cm (5' 9 ) 06/23/2025 1:17 PM EST Body Mass Index 45.63 06/23/2025 1:17 PM EST Plan of Treatment Upcoming Encounters Date Type Department Care Team (Late st Contact Info) Description 08/03/2025 1:00 PM EST Office Visit Bariatric Surgery [facility] [address] [phone] Makenzie Rodriguez MD [address] [place] [phone] 09/21/2025 2:00 PM EST Nutrition Bariatric Surgery [facility] [address] [phone] Carmel Blake, CASIMIRO [address] [address] Health Maintenance Due Date Last Done Comments [...] 01/06/2025 Hepatitis C Screening 01/06/2025 COVID-19 Vaccine (1 - 2024-2 6 season) 2025 Influenza Vaccine [...] ENDOTRACHEAL(NO CHARGE) Routine 05/21/2025 11:34 AM EDT [facility] GASTRIC RESTRICTIVE PROCEDURE LONGITUDINAL GASTRECTOMY [...] of5 resultswithin the time period is included. [facility] Signature Glucose POCT 183(H) 70 - 100 mg/dL 05/22/2025 11:[address] [facility] Blood Capillary blood specimen / Unknown 05/22/2025 11:06 AM EDT 05/22/2025 11:08 AM EDT us Makenzie Rodriguez MD LAB POINT OF CA RE TEST DOCKED DEVICE UNSOLICITED RESULTS Final Result [facility] [address] [place] [address], [place] [phone] * (ABNORMAL) CBC auto differential (05/22/2025 8:02 AM EDT) Only the most recent of2 resultswithin the time period is included. [facility] Signature WBC 10.3 4.8 - 10.8 K/mcL LAB HEMETOLOGY METHOD 05/22/2025 8:33 AM [facility] RBC 4.10(L) 4.50 - 5.50 M/mcL LAB HEMETOLOGY METHOD 05/22/2025 8:33 AM [facility] Hemoglobin 12.1(L) 13.5 - 17.5 g/dL LAB HEMETOLOGY METHOD 05/22/2025 8:33 AM [facility] Hematocrit 35.9(L) 42.0 - 54.0 % LAB HEMETOLOGY METHOD 05/22/2025 8:33 AM [facility] MCV 86.7 79.0 - 98.0 FL LAB HEMETOLOGY METHOD 05/22/2025 8:33 AM [facility] MCH 29.2 27.0 - 32.0 pcg LAB HEMETOLOGY METHOD 05/22/2025 8:33 AM [facility] MCHC 33.7 32.0 - 37.0 g/dL LAB HEMETOLOGY METHOD 05/22/2025 8:33 AM [facility] RDW 13.1 11.0 - 15.0 % LAB HEMETOLOGY METHOD 05/22/2025 8:33 AM [facility] Platelets 332 130 - 400 K/mcL LAB HEMETOLOGY METHOD 05/22/2025 8:33 AM [facility] MPV 9.5 7.0 - 11.0 FL LAB HEMETOLOGY METHOD 05/22/2025 8:33 AM [facility] NRBC 0.0 <1.0 % LAB HEMETOLOGY METHOD 05/22/2025 8:33 AM [facility] NRBC Absolute 0.00 <0.10 K/mcL LAB HEMETOLOGY METHOD 05/22/2025 8:33 AM [facility] Neutrophils Relative 75.8 % LAB HEMETOLOGY METHOD 05/22/2025 8:33 AM [facility] Lymphocytes Relative 15.9 % LAB HEMETOLOGY METHOD 05/22/2025 8:33 AM [facility] Monocytes Relative 7.8 % LAB HEMETOLOGY METHOD 05/22/2025 8:33 AM [facility] Eosinophils Relative 0.1 % LAB HEMETOLOGY METHOD 05/22/2025 8:33 AM [facility] Basophils Relative 0.2 % LAB HEMETOLOGY METHOD 05/22/2025 8:33 AM [facility] Immature Granulocytes Relative 0.2 % LAB HEMETOLOGY METHOD 05/22/2025 8:33 AM [facility] Neutrophils Absolute 7.78(H) 1.50 - 7.00 K/mcL LAB HEMETOLOGY METHOD 05/22/2025 8:33 AM [facility] Lymphocytes Absolute 1.63 1.00 - 5.00 K/mcL LAB HEMETOLOGY METHOD 05/22/2025 8:33 AM [facility] Monocytes Absolute 0.80 0.20 - 1.00 K/mcL LAB HEMETOLOGY METHOD 05/22/2025 8:33 AM [facility] Eosinophils Absolute 0.01 0.00 - 0.50 K/mcL LAB HEMETOLOGY METHOD 05/22/2025 8:33 AM [facility] Basophils Absolute 0.02 0.00 - 0.20 K/mcL LAB HEMETOLOGY METHOD 05/22/2025 8:33 AM [facility] Immature Granulocytes Absolute 0.02 0.00 - 0.03 K/mcL LAB HEMETOLOGY METHOD 05/22/2025 8:[address] [facility] Blood Venous blood specimen / Unknown Venipuncture / Unknown 05/22/2025 8:02 AM EDT 05/22/2025 8:21 AM EDT us Yolette URIBE LAB BLOOD ORDERABLES Final Res ult Performing Organization Address [facility]/ZIP Co de Phone Number [facility] [address] [place] [address], [place] [phone] * (ABNORMAL) Magnesium (05/22/2025 8:02 AM EDT) [facility] Magnesium 1.6(L) 1.9 - 2.6 mg/dL LAB CHEMISTRY METHOD 05/22/2025 8:[address] [facility] Blood Venous blood specimen / Unknown Venipuncture / Unknown 05/22/2025 8:02 AM EDT 05/22/2025 8:21 AM EDT us Yolette URIBE LAB BLOOD ORDERABLES Final Res ult Performing Organization Address [facility]/ZIP Co de Phone Number [facility] [address] [place] [address], [place] [phone] * (ABNORMAL) Basic metabolic panel (05/22/2025 8:02 AM EDT) Sodium 137 133 - 145 mmol/L LAB CHEMISTRY METHOD 05/22/2025 8:[address] [facility] Potassium 4.7 3.5 - 5.5 mmol/L LAB CHEMISTRY METHOD 05/22/2025 8:[address] [facility] Chloride 105 96 - 110 mmol/L LAB CHEMISTRY METHOD 05/22/2025 8:[address] [facility] CO2 26 21 - 32 mmol/L LAB CHEMISTRY METHOD 05/22/2025 8:[address] [facility] Anion Gap 6 3 - 11 LAB CHEMISTRY METHOD 05/22/2025 8:[address] [facility] Glucose 187(H) 70 - 100 mg/dL LAB CHEMISTRY METHOD 05/22/2025 8:[address] [facility] BUN 21 5 - 25 mg/dL LAB CHEMISTRY METHOD 05/22/2025 8:[address] [facility] Creatinine 1.19 0.70 - 1.30 mg/dL LAB CHEMISTRY METHOD 05/22/2025 8:[address] [facility] eGFR 79 >=60 mL/min/1. 73m2 LAB CHEMISTRY METHOD 05/22/2025 8:[address] [facility] Comment:Calculation based on the Chronic Kidney Disease Epidemiology Collaboration (CKD-EPI) equation refit without adjustment for race. BUN/Creatinine Ratio 17.6 LAB CHEMISTRY METHOD 05/22/2025 8:53 AM [facility] Calcium 9.2 8.5 - 10.5 mg/dL LAB CHEMISTRY METHOD 05/22/2025 8:53 AM [facility] Blood Venous blood specimen / Unknown Venipuncture / Unknown 05/22/2025 8:02 AM EDT 05/22/2025 8:21 AM EDT Yolette URIBE LAB BLOOD ORDERABLES Final Res ult [facility] [address] [place] [address], * Tissue exam (05/21/2025 12:59 PM EDT) Final Diagnosis A. Stomach, sleeve gastrectomy: - Portion of stomach with lamina propria hemorrhage. 05/22/2025 12:[address] [facility] at 1250 EDT Gross Description [...] consist of red, bilious and bloody material. [place] Consultant sections are submitted in one cassette to include a perpendicular section of the margin and random stomach, three pieces. TS 05/22/2025 12:[address] [facility] Disclaimer Unless otherwise specified, all tissue is 10% NB formalin fixed and paraffin embedded. 05/22/2025 12:[address] [facility] Tissue Stomach structure / Unknown 05/21/2025 12:59 PM EDT 05/21/2025 3:46 PM EDT us Makenzie Rodriguez MD LAB PATHOLOGY ORDERABLE S Final Result [facility] [address] [place] [address], * TH AN ENDOTRACHEAL(NO CHARGE) (05/21/2025 11:34 AM EDT) Narrative Doreen Gordon CRNA - 05/21/2025 11:34 AM EDT Doreen Gordon CRNA 05/21/2025 11:36 AM General Information and Staff Patient location during procedure: OR Resident/MANAGER MED SURG: Doreen Gordon CRNA Performed: resident/MANAGER MED SURG/CAA Performed by: Doreen Gordon CRNA Authorized by: [...] AM EDT No acute pulmonary disease. Code 14068 -------- FINAL REPORT -------- Dictated By: Reji Nicholson Dictated Date: 05/06/2025 07:50 ET Assigned Physician: Reji Nicholson Reviewed and Electronically Signed By: Reji Nicholson Signed Date: 05/06/2025 07:51 ET Workstation ID: [id number] Transcribed By: Self Edit Transcribed Date: 05/06/2025 [...] clear. IMPRESSION: No acute pulmonary disease. Code 59366 -------- FINAL REPORT -------- Dictated By: Reji Nicholson Dictated Date: 05/06/2025 07:50 ET Assigned Physician: Reji Nicholson Reviewed and Electronically Signed By: Reji Nicholson Signed Date: 05/06/2025 07:51 ET Workstation ID: [id number] Transcribed By: Self Edit Transcribed Date: 05/06/2025 07:50 ET Makenzie Rodriguez MD IMG XR PROCEDURES Final Result * ECG 12 lead (05/05/2025 2:34 PM EDT) Pathologist [facility] Ventricular Rate ECG 78 BPM GEMUSE Atrial Rate 78 BPM GEMUSE P-R Interval 170 ms GEMUSE QRS Duration 86 ms GEMUSE Q-T Interval 356 ms GEMUSE QTc 405 ms GEMUSE P Wave [place] 46 degrees GEMUSE R [place] -49 degrees GEMUSE T [place] 17 degrees GEMUSE ECG Interpretation Normal sinus [...] Type and screen (05/05/2025 2:18 PM EDT) Pathologist [facility] ABO Group O 05/06/2025 9:[address] [facility] Rh Type Positive 05/06/2025 9:[address] [facility] Antibody Screen Negative 05/06/2025 9:[address] [facility] Blood Venous blood specimen / Unknown Venipuncture / Unknown 05/05/2025 2:18 PM EDT 05/05/2025 4:17 PM EDT us Makenzie Rodriguez MD LAB BLOOD BANK TEST ORD ERABLES Final Result [facility] [address] [place] [address], * (ABNORMAL) CMP (05/05/2025 2:18 PM EDT) Sodium 139 133 - 145 mmol/L LAB CHEMISTRY METHOD 05/05/2025 4:42 PM [facility] Potassium 4.9 3.5 - 5.5 mmol/L LAB CHEMISTRY METHOD 05/05/2025 4:42 PM [facility] Chloride 105 96 - 110 mmol/L LAB CHEMISTRY METHOD 05/05/2025 4:42 PM [facility] CO2 29 21 - 32 mmol/L LAB CHEMISTRY METHOD 05/05/2025 4:42 PM [facility] Anion Gap 5 3 - 11 LAB CHEMISTRY METHOD 05/05/2025 4:42 PM [facility] Glucose 119(H) 70 - 100 mg/dL LAB CHEMISTRY METHOD 05/05/2025 4:42 PM [facility] BUN 21 5 - 25 mg/dL LAB CHEMISTRY METHOD 05/05/2025 4:42 PM [facility] Creatinine 1.44(H) 0.70 - 1.30 mg/dL LAB CHEMISTRY METHOD 05/05/2025 4:42 PM [facility] eGFR 63 >=60 mL/min/1. 73m2 LAB CHEMISTRY METHOD 05/05/2025 4:42 PM EDT [facility] Comment:Calculation based on the Chronic Kidney Disease Epidemiology Collaboration (CKD-EPI) equation refit without adjustment for race. BUN/Creatinine Ratio 14.6 LAB CHEMISTRY METHOD 05/05/2025 4:[address] [facility] Calcium 9.3 8.5 - 10.5 mg/dL LAB CHEMISTRY METHOD 05/05/2025 4:42 PM [facility] AST (SGOT) 20 10 - 42 unit/L LAB CHEMISTRY METHOD 05/05/2025 4:42 PM [facility] ALT (SGPT) 30 10 - 60 unit/L LAB CHEMISTRY METHOD 05/05/2025 4:42 PM [facility] Alkaline Phosphatase 128(H) 42 - 121 unit/L LAB CHEMISTRY METHOD 05/05/2025 4:[address] [facility] Total Protein 6.8 6.0 - 8.0 g/dL LAB CHEMISTRY METHOD 05/05/2025 4:[address] [facility] Albumin 3.5 3.2 - 5.0 g/dL LAB CHEMISTRY METHOD 05/05/2025 4:42 PM [facility] Total Bilirubin 0.7 0.0 - 1.4 mg/dL LAB CHEMISTRY METHOD 05/05/2025 4:[address] [facility] Blood Venous blood specimen / Unknown Venipuncture / Unknown 05/05/2025 2:18 PM EDT 05/05/2025 4:17 PM EDT us Makenzie Rodriguez MD LAB BLOOD ORDERABLES Fi nal Result [facility] [address] [place] [address], from Last 3 Months Additional Health Concerns Active Problems Noted Date Diagnosed Date Autogenerated Problem 05/04/2025 Insurance [facility] PL[facility] Advance Directives * Full Code - [...] currently active code status orders. Care Teams Research Hydraulic Engineer Relationship Specialty Start Date End Date Clay Guevara PA [address] [place] [phone] PCP - General Physician Senior Chemical Engineer 01/05/25
== END 2025-07-16 14:24 | disposition home or self-care (01) ==
LOC: HO.HVS 14:01
PROVIDERS: PCP Physician Assistant; Visit Provider Surgery Vascular Surgery
DX: I73.9 Peripheral vascular disease, unspecified (principal)
CPT/HCPCS: 99214

== ENCOUNTER → 2025-07-16 14:00 | Outpatient (BNVA) | payer OTHER, SELFPAY | PROVIDERS: PCP Physician Assistant; Visit Provider Surgery Vascular Surgery | DX: I73.9 Peripheral vascular disease, unspecified (principal) | CPT/HCPCS: 99212 ==

== ENCOUNTER 2025-07-23 09:44 | Outpatient (REF) | payer OTHER, SELFPAY ==
--- NOTE | ~2025-07-23 | CT_ITS ---
EXAMINATION: CT ANGIOGRAPHY LEGS WITH RUNOFF CLINICAL INFORMATION: I 73.9 Status post right below knee amputation. COMPARISON: Ultrasound lower extremity arteries, left dated August 30, 2023. TECHNIQUE: Contiguous axial images during the arterial phase following the IV contrast administration 99 cc of Omnipaque 350 strength without reported immediate complications from the suprarenal abdominal aorta to the left foot using 5 mm collimation with 0.6 mm collimation reformatted Sagittal and coronal reformatted images acquired. Maximum intensity projections in the coronal and sagittal planes. This CT examination was performed using dose optimization techniques as appropriate, variously including the following: *Automated exposure control *Adjustment of mA and/or kV according to patient size (this includes techniques or standardized protocols for targeted exams where dose is matched to indication/reason for exam; i.e. extremities or head) *Use of iterative reconstruction technique DLP: 1169 mGy-cm FINDINGS: Abdominal aorta: Normal caliber and enhancement pattern without intimal flap. No focal stenosis. No aneurysm. No IV contrast extravasation. Suprarenal/proximal segment measures 18 x 20 mm. Infrarenal/mid segment measures 16 x 15 mm. Distal segment measures 15 x 15 mm. Celiac trunk is patent without focal stenosis. Superior mesenteric artery is patent without high degree stenosis. Main renal arteries are patent without focal stenosis. Inferior mesenteric artery is patent without focal stenosis. Right common iliac artery diameter is 9 m. Left common iliac artery diameter is 9.4 mm. Right lower extremity: Common femoral artery is patent without focal stenosis. Profundal femoral artery is patent without focal stenosis. Superficial femoral artery is patent without focal stenosis. Calcified plaques. Popliteal artery demonstrates multiple plaques with decreased IV contrast enhancement. Left lower extremity: Common femoral artery is patent with calcified plaque. No focal stenosis. Profunda femoris artery is patent without focal stenosis. Calcified plaque. Superficial femoral artery is patent with calcified plaque. No focal stenosis. Popliteal artery demonstrates calcified plaque with high degree stenosis. Calcified plaques and barely no IV contrast enhancement in the lumen of the posterior tibialis, peroneal artery and anterior tibialis and dorsalis pedis. Ancillary findings: Status post gastric sleeve. Nodular surface of the liver. Liver measures 17 cm. Probable gallbladder sludge. No hydronephrosis in either kidney. Diastases abdominal rectus muscles and fat-containing umbilical hernia. Fatty atrophy of the muscles left lower extremity. Soft tissue edema without fluid collections in the stump of the right below knee amputation and from the left knee to the ankle. CT/CT angio abd aorta runoff IMPRESSION: Severe atherosclerosis disease with very little IV contrast enhanced lumen of the arteries from the left popliteal to the left dorsalis pedis. Normal abdominal aorta and iliac arteries. No high degree stenosis in the mesenteric arteries or the main renal arteries. Electronically signed by: Taqueria Collazo MD 07/23/2025 02:25 PM EST
[2025-07-23 10:22] LABS: Hematocrit 39.0 % (42.0-52.0); Hemoglobin 12.8 g/dl (14.0-18.0); Mean Corpuscular HGB Conc 32.8 g/dl (31.0-36.0); Mean Corpuscular Hemoglobin 28.8 pg (27.0-33.0); Mean Corpuscular Volume 87.8 fL (80.0-98.0); NRBC Abs Auto 0.000 X10*3/uL (0.0-0.012); NRBC Pct Auto 0.0 /100WBC (0.0-0.2); Platelet Count 292 X10*3/uL (160-400); Red Blood Count 4.44 X10*6/uL (4.60-5.80); White Blood Count 4.9 X10*3/uL (4.8-10.8)
[2025-07-23 10:23] LABS: INTERNATIONAL NORM RATIO 1.1 (0.9-1.1); Prothrombin Time 12.9 SEC (11.2-13.5)
--- OUTSIDE RECORDS SUMMARY | 2025-07-23 11:31 | XMS_ITS | Encounter Summary ---
Author Organization [facility], Address [address] [place] [address] Phone Care Team Providers Care Heating Worker Name Role Phone Clay Guevara Primary Care Provider [phone] Reason for Visit * Reason Comments Med Refill Encounter Details Date Type Department Care Team (Late st Contact Info) Description 12/15/2023 Refill [facility], [address] [place] [phone] Lucio Hancock MD [address] [place] [phone] Social History Tobacco Use Types Packs/Day Years [...] on filedocumented in this encounter Care Teams Heating Worker Relationship Specialty Start Date End Date Clay Guevara PA [address], [address] [place], [place] [phone] PCP - General Physician Dirt Shoveler 06/23/20 documented as of this encounter
--- OUTSIDE RECORDS SUMMARY | 2025-07-23 11:31 | XMS_ITS | Clinical Summary ---
Author Organization [facility], Address [address] [place] [address] Phone Care Team Providers Care Recreation Adviser Name Role Phone Clay Guevara Primary Care Provider [phone] Allergies Active Allergy Reactions Criticality Noted Date [...] Visit [facility] [address] [place] [address] Lucio Hancock MD Stage 3a chronic kidney [...] PM EDT) Hemoglobin A1C 7.5(H) (4.0-5.6) % [facility] Comment: MONITORING: In known diabetic patients, hemoglobin A1c targets should be discussed with health care provider. DIAGNOSTIC USE: The [place] [employer] (ADA) and the World Health [...] Supplement 1 Testing performed or reported by [facility], a Service of [facility], [address] [place] [id number] Marco Delgado MD, Apparel Merchandiser GOOD# [id number] Blood specimen (specimen) Venous blood / Unknown 10/27/2021 3:46 PM EDT 10/27/2021 4:03 PM EDT us Connie URIBE LAB BLOOD ORDERABLES Final Res ult [facility] from Last 3 Months or Most Recently Relevant to Health Maintenance Insurance [facility] [employer] Care Teams Recreation Adviser Relationship Specialty Start Date End Date Clay Guevara PA [address], [address] [place] [address] PCP - General Physician Leather Seasoner 06/23/20
--- OUTSIDE RECORDS SUMMARY | 2025-07-23 11:31 | XMS_ITS | Clinical Summary ---
Author Organization [facility] Address [address] [place] [address] Phone Care Team Providers Care Internal Communications Specialist Name Role Phone Clay Guevara Primary [...] hours if needed for flatulence. 30 tablet Active wheat dextrin 3 gram/3.5 gram powder [...] 8 (eight) hours. 180 tablet 5 Active Active Problems Problem Noted Date Diagnosed Date Class 3 severe obesity with serious comorbidity and body mass index (BMI) of 45.0 to 49.9 in adult 05/07/2025 Morbid obesity with BMI of 45.0-49.9, adult 04/06 Encounters Date Type Department Care Team Description 06/23/2025 1:15 PM EST Office Visit Bariatric Surgery - [address] [phone] Makenzie Rodriguez MD S/P bariatric surgery (Primary Dx); Obesity, Class III, BMI 40-49.9 (morbid obesity) ([facility] V28) 06/23/2025 11:00 AM EST Telemedicine Bariatric Surgery - [address] [phone] S/P bariatric surgery (Primary Dx) 05/26/2025 Telephone Bariatric Surgery - [address] [phone] [address] Blake RD 05/21/2025 11:08 AM EDT Anesthesia Event [facility] Main OR [address] [place] [phone] Freddie Villa DO Burton, Heather, CRNA 05/21/2025 10:00 AM EDT - 05/21/2025 12:30 PM EDT Surgery [facility] OR [address] [place] [phone] Makenzie Rodriguez MD DAVINCI SLEEVE GASTRECTOMY [89137 (CPT )] 05/21/2025 9:02 AM EDT - 05/22/2025 3:48 PM EDT Hospital Encounter [facility] Medical Surgical Unit [address] [place] [phone] Makenzie Rodriguez MD Morbid obesity with BMI of 45.0-49.9, adult (CMS/[facility] V24, [facility] V28) Discharge Disposition: Home or Self Care 05/19/2025 1:15 PM EDT Consult Bariatric Surgery [address] [phone] Makenzie Rodriguez MD Obesity, Class III, BMI 40-49.9 (morbid obesity) ([facility] V28) (Primary Dx); Sleep apnea, unspecified type; Gastroesophageal reflux disease, unspecified whether esophagitis present 05/07/2025 11:00 AM EDT Consult Bariatric Surgery [address] [phone] Mis Blakeah, RD Class 3 severe obesity with serious comorbidity and body mass index (BMI) of 45.0 to 49.9 in adult, unspecified obesity type ([facility] V24, [facility] V28) (Primary Dx) 05/05/2025 2:40 PM EDT - 05/05/2025 11:59 PM EDT Hospital Encounter [facility] Xray [address] [place] [address] Discharge Disposition: Home or Self Care from Last 3 Months Surgical History Surgery Date Site/Laterality Comments EYE SURGERY RETINAL DETACHMENT AMPUTATION [facility]KA Medical History Medical History Date Comments Other and unspecified hyperlipidemia 04/18/2005 DX:Other and unspecified hyperlipidemia Morbid obesity ([facility] V24, [facility] V28) 04/18/2005 DX:Morbid obesity ([facility]) Type II or unspecified type diabetes mellitus without mention of complication, not stated as uncontrolled 04/18/2005 DX:Type II or unspecified ty pe diabetes mellitus without mention of complication, not stated as uncontrolled Type 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, uncontrolled(250.42) ([facility] V24, [facility] V28) 02/01/2007 DX:Type II or unspecified ty pe diabetes mellitus with renal manifestations, uncontrolled(250.42) ([facility]) Reflux 07/27/07 DX:Reflux Essential hypertension, benign 05/17/07 D X:Essential hypertension, benign Essential hypertension, benign 05/17/07 D X:Essential hypertension, benign Preglaucoma 07/27/07 DX:Preglaucoma Chronic kidney disease CKD (chronic kidney disease) stage 3, GFR 30-59 ml/min ([facility] V24, [facility] V28) per h&p CVA (cerebral vascular accid ent) ([facility] V24, [facility] V28) right sided weakness Retinopathy due to secondary diabetes mellitus ([facility] V24, [facility] V28) Family History Medical History Relation Name [...] for your loved ones. For example, child life assistant or elderly care for an older adult? [...] PM EST Office Visit Bariatric Surgery - [place] [address] [phone] Makenzie Rodriguez MD [address] [place] [phone] 09/21/2025 2:00 PM EST Nutrition Bariatric Surgery - [place] [address] [phone] Carmel Blake, CASIMIRO [address] [phone] Health Maintenance Due Date Last [...] Type Associated Problems Recent Progress Patient-Stated? Author Kat iniguez Goal Care Plan Autogenerated Problem No Makenzie [...] ENDOTRACHEAL(NO CHARGE) Routine 05/21/2025 11:34 AM EDT [place] [facility] SURGICAL GASTRIC RESTRICTIVE PROCEDURE LONGITUDINAL GASTRECTOMY [...] of5 resultswithin the time period is included. [facility] Glucose POCT 183(H) 70 - 100 mg/dL 05/22/2025 11:07 AM EDT [facility] Blood Capillary blood specimen / Unknown 05/22/2025 11:06 AM EDT 05/22/2025 11:08 AM EDT us Makenzie Rodriguez MD LAB POINT OF CA RE TEST DOCKED DEVICE UNSOLICITED RESULTS Final Result [facility] [address] [place] [address], * (ABNORMAL) CBC auto differential (05/22/2025 8:02 AM EDT) Only the most recent of2 resultswithin the time period is included. [facility] WBC 10.3 4.8 - 10.8 K/mcL LAB HEMETOLOGY METHOD 05/22/2025 8:33 AM [facility] RBC 4.10(L) 4.50 - 5.50 M/[facility] LAB HEMETOLOGY METHOD 05/22/2025 8:33 AM [facility] Hemoglobin 12.1(L) 13.5 - 17.5 g/dL LAB HEMETOLOGY METHOD 05/22/2025 8:33 AM [facility] Hematocrit 35.9(L) 42.0 - 54.0 % LAB HEMETOLOGY METHOD 05/22/2025 8:33 AM [facility] MCV 86.7 79.0 - 98.0 FL LAB HEMETOLOGY METHOD 05/22/2025 8:33 AM [facility] MCH 29.2 27.0 - 32.0 pcg LAB HEMETOLOGY METHOD 05/22/2025 8:33 AM [facility] MCHC 33.7 32.0 - 37.0 g/dL LAB HEMETOLOGY METHOD 05/22/2025 8:33 AM [facility] RDW 13.1 11.0 - 15.0 % LAB HEMETOLOGY METHOD 05/22/2025 8:33 AM [facility] Platelets 332 130 - 400 K/[facility] LAB HEMETOLOGY METHOD 05/22/2025 8:33 AM [facility] MPV 9.5 7.0 - 11.0 FL LAB HEMETOLOGY METHOD 05/22/2025 8:33 AM [facility] NRBC 0.0 <1.0 % LAB HEMETOLOGY METHOD 05/22/2025 8:33 AM [facility] NRBC Absolute 0.00 <0.10 K/[facility] LAB HEMETOLOGY METHOD 05/22/2025 8:33 AM [facility] Neutrophils Relative 75.8 % LAB HEMETOLOGY METHOD 05/22/2025 8:33 AM [facility] Lymphocytes Relative 15.9 % LAB HEMETOLOGY METHOD 05/22/2025 8:33 AM [facility] Monocytes Relative 7.8 % LAB HEMETOLOGY METHOD 05/22/2025 8:33 AM [facility] Eosinophils Relative 0.1 % LAB HEMETOLOGY METHOD 05/22/2025 8:33 AM [facility] Basophils Relative 0.2 % LAB HEMETOLOGY METHOD 05/22/2025 8:33 AM [facility] Immature Granulocytes Relative 0.2 % LAB HEMETOLOGY METHOD 05/22/2025 8:33 AM [facility] Neutrophils Absolute 7.78(H) 1.50 - 7.00 K/mcL LAB HEMETOLOGY METHOD 05/22/2025 8:33 AM [facility] Lymphocytes Absolute 1.63 1.00 - 5.00 K/mcL LAB HEMETOLOGY METHOD 05/22/2025 8:33 AM [facility] Monocytes Absolute 0.80 0.20 - 1.00 K/mcL LAB HEMETOLOGY METHOD 05/22/2025 8:33 AM [facility] Eosinophils Absolute 0.01 0.00 - 0.50 K/mcL LAB HEMETOLOGY METHOD 05/22/2025 8:33 AM [facility] Basophils Absolute 0.02 0.00 - 0.20 K/mcL LAB HEMETOLOGY METHOD 05/22/2025 8:33 AM [facility] Immature Granulocytes Absolute 0.02 0.00 - 0.03 K/mcL LAB HEMETOLOGY METHOD 05/22/2025 8:33 AM [facility] Blood Venous blood specimen / Unknown Venipuncture / Unknown 05/22/2025 8:02 AM EDT 05/22/2025 8:21 AM EDT us Yolette URIBE LAB BLOOD ORDERABLES Final Res ult Performing Organization Address [facility]/ZIP Co de Phone Number [facility] [address] [place] [address], [place] [phone] * (ABNORMAL) Magnesium (05/22/2025 8:02 AM EDT) [facility] Magnesium 1.6(L) 1.9 - 2.6 mg/dL LAB CHEMISTRY METHOD 05/22/2025 8:53 AM EDT [facility] Blood Venous blood specimen / Unknown Venipuncture / Unknown 05/22/2025 8:02 AM EDT 05/22/2025 8:21 AM EDT us Yolette URIBE LAB BLOOD ORDERABLES Final Res ult Performing Organization Address City/[facility]/ZIP Co de Phone Number [facility] [address] [place] [address], [place] [phone] * (ABNORMAL) Basic metabolic panel (05/22/2025 8:02 AM EDT) [facility] Sodium 137 133 - 145 mmol/L LAB CHEMISTRY METHOD 05/22/2025 8:53 AM EDT [facility] Potassium 4.7 3.5 - 5.5 mmol/L LAB CHEMISTRY METHOD 05/22/2025 8:53 AM EDT [facility] Chloride 105 96 - 110 mmol/L LAB CHEMISTRY METHOD 05/22/2025 8:53 AM EDT [facility] CO2 26 21 - 32 mmol/L LAB CHEMISTRY METHOD 05/22/2025 8:53 AM EDT [facility] Anion Gap 6 3 - 11 LAB CHEMISTRY METHOD 05/22/2025 8:53 AM EDT [facility] Glucose 187(H) 70 - 100 mg/dL LAB CHEMISTRY METHOD 05/22/2025 8:53 AM EDT [facility] BUN 21 5 - 25 mg/dL LAB CHEMISTRY METHOD 05/22/2025 8:53 AM EDT [facility] Creatinine 1.19 0.70 - 1.30 mg/dL LAB CHEMISTRY METHOD 05/22/2025 8:53 AM EDT [facility] eGFR 79 >=60 mL/min/1. 73m2 LAB CHEMISTRY METHOD 05/22/2025 8:53 AM EDT [facility] Comment:Calculation based on the Chronic Kidney Disease Epidemiology Collaboration (CKD-EPI) equation refit without adjustment for race. BUN/Creatinine Ratio 17.6 LAB CHEMISTRY METHOD 05/22/2025 8:53 AM EDT [facility] Calcium 9.2 8.5 - 10.5 mg/dL LAB CHEMISTRY METHOD 05/22/2025 8:53 AM EDT [facility] Blood Venous blood specimen / Unknown Venipuncture / Unknown 05/22/2025 8:02 AM EDT 05/22/2025 8:21 AM EDT Yolette URIBE LAB BLOOD ORDERABLES Final Res ult [facility] [address] [place] [address], * Tissue exam (05/21/2025 12:59 PM EDT) Final Diagnosis A. Stomach, sleeve gastrectomy: - Portion of stomach with lamina propria hemorrhage. 05/22/2025 12:50 PM EDT [facility] at 1250 EDT Gross Description [...] consist of red, bilious and bloody material. Magazine Journalist sections are submitted in one cassette to include a perpendicular section of the margin and random stomach, three pieces. TS 05/22/2025 12:50 PM EDT [facility] Disclaimer Unless otherwise specified, all tissue is 10% NB formalin fixed and paraffin embedded. 05/22/2025 12:50 PM EDT [facility] Tissue Stomach structure / Unknown 05/21/2025 12:59 PM EDT 05/21/2025 3:46 PM EDT Makenzie Rodriguez MD LAB PATHOLOGY ORDERABLE S Final Result [facility] [address] [place] [address], * TH AN ENDOTRACHEAL(NO CHARGE) (05/21/2025 11:34 AM EDT) Narrative Doreen Gordon CRNA - 05/21/2025 11:34 AM EDT Doreen Gordon CRNA 05/21/2025 11:36 AM General Information and Staff Patient location during procedure: OR Resident/INTEGRATED CIRCUITS INSPECTOR: Doreen Gordon CRNA Performed: resident/INTEGRATED CIRCUITS INSPECTOR/CAA Performed by: Doreen Gordon CRNA Authorized by: [...] AM EDT No acute pulmonary disease. Code 32267 -------- FINAL REPORT -------- Dictated By: Reji Nicholson Dictated Date: 05/06/2025 07:50 ET Assigned Physician: Reji Nicholson Reviewed and Electronically Signed By: Reji Nicholson Signed Date: 05/06/2025 07:51 ET Workstation ID: [id number] Transcribed By: Self Edit Transcribed Date: 05/06/2025 [...] clear. IMPRESSION: No acute pulmonary disease. Code 02107 -------- FINAL REPORT -------- Dictated By: Reji Nicholson Dictated Date: 05/06/2025 07:50 ET Assigned Physician: Reji Nicholson Reviewed and Electronically Signed By: Reji Nicholson Signed Date: 05/06/2025 07:51 ET Workstation ID: [id number] Transcribed By: Self Edit Transcribed Date: 05/06/2025 07:50 ET us Makenzie Rodriguez MD IMG XR PROCEDURES Final Result * ECG 12 lead (05/05/2025 2:34 PM EDT) Ventricular Rate ECG 78 BPM GEMUSE Atrial Rate 78 BPM GEMUSE P-R Interval 170 ms GEMUSE QRS Duration 86 ms GEMUSE Q-T Interval 356 ms GEMUSE QTc 405 ms GEMUSE P Wave Campbell 46 degrees GEMUSE R Campbell -49 degrees GEMUSE T Campbell 17 degrees GEMUSE ECG Interpretation Normal sinus [...] ABO Group O 05/06/2025 9:10 AM EDT [facility] Rh Type Positive 05/06/2025 9:10 AM EDT [facility] Antibody Screen Negative 05/06/2025 9:10 AM EDT [facility] Blood Venous blood specimen / Unknown Venipuncture / Unknown 05/05/2025 2:18 PM EDT 05/05/2025 4:17 PM EDT us Makenzie Rodriguez MD LAB BLOOD BANK TEST ORD ERABLES Final Result [facility] [address] [place] [address], [place] [phone] * (ABNORMAL) CMP (05/05/2025 2:18 PM EDT) Sodium 139 133 - 145 mmol/L LAB CHEMISTRY METHOD 05/05/2025 4:42 PM [facility] Potassium 4.9 3.5 - 5.5 mmol/L LAB CHEMISTRY METHOD 05/05/2025 4:42 PM [facility] Chloride 105 96 - 110 mmol/L LAB CHEMISTRY METHOD 05/05/2025 4:42 PM [facility] CO2 29 21 - 32 mmol/L LAB CHEMISTRY METHOD 05/05/2025 4:42 PM [facility] Anion Gap 5 3 - 11 LAB CHEMISTRY METHOD 05/05/2025 4:42 PM [facility] Glucose 119(H) 70 - 100 mg/dL LAB CHEMISTRY METHOD 05/05/2025 4:42 PM [facility] BUN 21 5 - 25 mg/dL LAB CHEMISTRY METHOD 05/05/2025 4:42 PM [facility] Creatinine 1.44(H) 0.70 - 1.30 mg/dL LAB CHEMISTRY METHOD 05/05/2025 4:42 PM [facility] eGFR 63 >=60 mL/min/1. 73m2 LAB CHEMISTRY METHOD 05/05/2025 4:42 PM [facility] Comment:Calculation based on the Chronic Kidney Disease Epidemiology Collaboration (CKD-EPI) equation refit without adjustment for race. BUN/Creatinine Ratio 14.6 LAB CHEMISTRY METHOD 05/05/2025 4:42 PM [facility] Calcium 9.3 8.5 - 10.5 mg/dL LAB CHEMISTRY METHOD 05/05/2025 4:42 PM EDT [facility] AST (SGOT) 20 10 - 42 unit/L LAB CHEMISTRY METHOD 05/05/2025 4:42 PM EDT [facility] ALT (SGPT) 30 10 - 60 unit/L LAB CHEMISTRY METHOD 05/05/2025 4:42 PM EDT [facility] Alkaline Phosphatase 128(H) 42 - 121 unit/L LAB CHEMISTRY METHOD 05/05/2025 4:42 PM EDT [facility] Total Protein 6.8 6.0 - 8.0 g/dL LAB CHEMISTRY METHOD 05/05/2025 4:42 PM EDT [facility] Albumin 3.5 3.2 - 5.0 g/dL LAB CHEMISTRY METHOD 05/05/2025 4:42 PM EDT [facility] Total Bilirubin 0.7 0.0 - 1.4 mg/dL LAB CHEMISTRY METHOD 05/05/2025 4:42 PM EDT [facility] Blood Venous blood specimen / Unknown Venipuncture / Unknown 05/05/2025 2:18 PM EDT 05/05/2025 4:17 PM EDT us Makenzie Rodriguez MD LAB BLOOD ORDERABLES Fi nal Result [facility] [address] [place] [address], from Last 3 Months Additional Health Concerns Active Problems Noted Date Diagnosed Date Autogenerated Problem 05/04/2025 Insurance [facility] Advance Directives * Full Code - Default [...] currently active code status orders. Care Teams Internal Communications Specialist Relationship Specialty Start Date End Date Clay Guevara PA [address] [place] [phone] PCP - General Physician Public Policy Manager 01/05/25
--- OUTSIDE RECORDS SUMMARY | 2025-07-23 11:31 | XMS_ITS | Encounter Summary ---
Author Organization [facility], Address [address] [place] [address] Phone Care Team Providers Care Security Solutions Architect Name Role Phone Clay Guevara Primary Care Provider [phone] Encounter Details Date Type Department Care Team (Late st Contact Info) Description 04/28/2021 Documentation Only [facility], [address] [place] [address] Connie Stafford PA Social History Tobacco Use [...] filedocumented in this encounter Care Teams Security Solutions Architect Relationship Specialty Start Date End Date Clay Guevara PA [address], [address] [place], [place] [phone] PCP - General Physician Machinist Helper 06/23/20 documented as of this encounter
--- OUTSIDE RECORDS SUMMARY | 2025-07-23 11:31 | XMS_ITS | Encounter Summary ---
Author Organization [facility], Address [address] [place] [address] Phone Care Team Providers Care Health Type Technician Name Role Phone Clay Guevara Primary Care Provider [phone] Reason for Visit * Reason Comments Med Refill Encounter Details Date Type Department Care Team (Late st Contact Info) Description 11/19/2023 Refill [facility], [address] [place] [phone] Lucio Hancock MD [address] [place] [phone] Social History Tobacco Use Types Packs/Day Years [...] filedocumented in this encounter Care Teams Health Type Technician Relationship Specialty Start Date End Date Clay Guevara PA [address], [address] [place], [place] [phone] PCP - General Physician Transplant Nurse 06/23/20 documented as of this encounter
--- OUTSIDE RECORDS SUMMARY | 2025-07-23 11:31 | XMS_ITS | Encounter Summary ---
Author Organization [facility], Address [address] [place] [address] Phone Care Team Providers Care Dinkey Skinner Name Role Phone Clay Guevara Primary Care Provider [phone] Reason for Visit * Reason Onset Date Comments [facility] visit 08/14/2019 CKDIII/HTN Encounter Details Date Type Department Care Team (Late st Contact Info) Description 08/14/2019 Documentation Only [facility] [address] [place] [address] Connie Stafford PA Social History [...] on filedocumented in this encounter Care Teams Dinkey Skinner Relationship Specialty Start Date End Date Clay Guevara PA [address], [address] [place] [address] PCP - General Physician Plug Maker 06/23/20 documented as of this encounter
--- OUTSIDE RECORDS SUMMARY | 2025-07-23 11:31 | XMS_ITS | Encounter Summary ---
Author Organization [facility], Address [address] [place] [address] Phone Care Team Providers Care Operational Communication Chief Name Role Phone Clay Guevara Primary Care Provider Encounter Details Date Type Department Care Team (Late st Contact Info) Description 04/16/2024 Documentation Only [facility], [address] [place] [place] [address] Jean [place]án[place], [place] [address] [place] [address] Social History Tobacco Use Types [...] on filedocumented in this encounter Care Teams Operational Communication Chief Relationship Specialty Start Date End Date Clay Guevara PA [address], [address] [place], [place] [phone] PCP - General Physician Patient Admitting Representative 06/23/20 documented as of this encounter
[2025-07-23 11:36] LABS: Alanine Aminotransferase 14 U/L (0-40); Albumin Level 4.1 g/dL (3.5-5.0); Alkaline Phosphatase 111 U/L (39-117); Anion Gap 10 (12-20); Aspartate Amino Transferase 24 U/L (5-37); Blood Urea Nitrogen 18 mg/dL (9-16); Calcium 9.2 mg/dL (8.4-10.2); Carbon Dioxide 30 mmol/L (22-29); Chloride 107 mmol/L (96-108); Cholesterol 109 mg/dL (<200); Estimated Glomerular Filt Rate > 60; HDL Cholesterol 24 mg/dL (>40); Potassium 4.1 mmol/L (3.3-5.1); Sodium 143 mmol/L (135-145); Total Protein 7.2 g/dL (6.5-8.0); Triglycerides 152 mg/dL (<150)
[2025-07-23 12:52] LABS: Microalbum/Creatinine Ratio Ur 674.5 ug/mg cr (<30)
[2025-07-23] MEDS: iohexoL 350 MG/ML 100 ML INFUS..BTL IV (13:31)
[2025-07-23 13:56] LABS: HIV Num 1 0.08 S/CO (0.00-0.99)
== END 2025-07-23 09:45 | disposition home or self-care (01) ==
LOC: HO.CT 09:44
PROVIDERS: Internal Medicine; Physician Assistant Medical; PCP Physician Assistant; Visit Provider Surgery Vascular Surgery
DX: I10 Essential (primary) hypertension (principal); E78.5 Hyperlipidemia, unspecified; E11.8 Type 2 diabetes mellitus with unspecified complications; E66.09 Other obesity due to excess calories; I73.9 Peripheral vascular disease, unspecified; Z29.81 Encounter for HIV pre-exposure prophylaxis; Z71.89 Other specified counseling
CPT/HCPCS: 36415; 75635; 80053; 80061; 82043; 82570; 85027; 85610; 87389; Q9967

== ENCOUNTER → 2025-07-23 10:17 | Outpatient (BNV) | payer OTHER, SELFPAY | PROVIDERS: PCP Physician Assistant; Visit Provider Radiology Diagnostic Radiology | DX: I73.9 Peripheral vascular disease, unspecified (principal) | CPT/HCPCS: 75635 ==

== ENCOUNTER 2025-07-29 11:01 | Outpatient (AMB) | payer OTHER, SELFPAY ==
--- OUTSIDE RECORDS SUMMARY | 2025-07-29 11:09 | XMS_ITS | Clinical Summary ---
Author Organization [facility], Address [address] [place] [address] Phone Care Team Providers Care Supervisor Stripping Name Role Phone Clay Guevara Primary Care Provider [phone] Allergies Active Allergy Reactions Criticality Noted Date [...] Visit [facility] [address] [place] [address] Lucio Hancock MD Stage 3a chronic kidney [...] PM EDT) Hemoglobin A1C 7.5(H) (4.0-5.6) % [facility] Comment: MONITORING: In known diabetic patients, hemoglobin A1c targets should be discussed with health care provider. DIAGNOSTIC USE: The [place] Diabetes Association (ADA) and the World Health [...] Supplement 1 Testing performed or reported by [facility], a Service of [facility], [address] [place] [id number] Marco Delgado MD, Air Antisubmarine Officer GOOD# [id number] Blood specimen (specimen) Venous blood / Unknown 10/27/2021 3:46 PM EDT 10/27/2021 4:03 PM EDT us Connie URIBE LAB BLOOD ORDERABLES Final Res ult [facility] from Last 3 Months or Most Recently Relevant to Health Maintenance Insurance [facility] Care Teams Supervisor Stripping Relationship Specialty Start Date End Date Clay Guevara PA [address], [address] [place] [address] PCP - General Physician Linker Up 06/23/20
--- OUTSIDE RECORDS SUMMARY | 2025-07-29 11:09 | XMS_ITS | Encounter Summary ---
Author Organization [facility] [place], Address [address] [place] [address] Phone Care Team Providers Care Content Management Specialist Name Role Phone Clay Guevara Primary Care Provider Reason for Visit * Reason Comments Med Refill Encounter Details Date Type Department Care Team (Late st Contact Info) Description 11/19/2023 Refill [facility], [address] [place] [phone] Lucio Hancock MD [address] [place] [phone] Social History Tobacco Use Types Packs/Day Years [...] on filedocumented in this encounter Care Teams Content Management Specialist Relationship Specialty Start Date End Date Clay Guevara PA [address], [address] [place], [place] [phone] PCP - General Physician Clinical Education Manager 06/23/20 documented as of this encounter
--- OUTSIDE RECORDS SUMMARY | 2025-07-29 11:09 | XMS_ITS | Encounter Summary ---
Author Organization [facility] [place], Address [address] [place] [address] Phone Care Team Providers Care Tile Molder Hand Name Role Phone Clay Guevara Primary Care Provider [phone] Encounter Details Date Type Department Care Team (Late st Contact Info) Description 04/28/2021 Documentation Only [facility] [place], [address] [place] [address] Connie Stafford PA Social History Tobacco Use [...] on filedocumented in this encounter Care Teams Tile Molder Hand Relationship Specialty Start Date End Date Clay Guevara PA [address], [address] [place], [place] [phone] PCP - General Physician Fitter Helper 06/23/20 documented as of this encounter
--- OUTSIDE RECORDS SUMMARY | 2025-07-29 11:09 | XMS_ITS | Encounter Summary ---
Author Organization [facility] [place], Address [address] [place] [address] Phone Care Team Providers Care Website/Blog Editor Name Role Phone Clay Guevara Primary Care Provider [phone] Encounter Details Date Type Department Care Team (Late st Contact Info) Description 04/16/2024 Documentation Only [facility], [address] [place] [address] [place], [place] [address] [place] [address] Social History Tobacco Use Types [...] on filedocumented in this encounter Care Teams Website/Blog Editor Relationship Specialty Start Date End Date Clay Guevara PA [address], [address] [place], [place] [phone] PCP - General Physician Hairspring Vibrator 06/23/20 documented as of this encounter
--- OUTSIDE RECORDS SUMMARY | 2025-07-29 11:09 | XMS_ITS | Encounter Summary ---
Author Organization [facility] [place], Address [address] [place] [address] Phone Care Team Providers Care High Density Press Laborer Name Role Phone Clay Guevara Primary Care Provider [phone] Reason for Visit * Reason Comments Med Refill Encounter Details Date Type Department Care Team (Late st Contact Info) Description 12/15/2023 Refill [facility] [place], [address] [place] [phone] Lucio Hancock MD [address] [place] [phone] Social History Tobacco Use Types Packs/Day Years [...] on filedocumented in this encounter Care Teams High Density Press Laborer Relationship Specialty Start Date End Date Clay Guevara PA [address], [address] [place], [place] [phone] PCP - General Physician Carding Supervisor 06/23/20 documented as of this encounter
--- OUTSIDE RECORDS SUMMARY | 2025-07-29 11:09 | XMS_ITS | Clinical Summary ---
Author Organization [facility] Address [address] [place] [address] Phone Care Team Providers Care Floor Installer Name Role Phone Clay Guevara Primary Care [...] PM EST Office Visit Bariatric Surgery - [address] [address] Makenzie Rodriguez MD S/P bariatric surgery (Primary Dx); Obesity, Class III, BMI 40-49.9 (morbid obesity) ([facility] V28) 06/23/2025 11:00 AM EST Telemedicine Bariatric Surgery - [address] [phone] S/P bariatric surgery (Primary Dx) 05/26/2025 Telephone Bariatric Surgery - [address] [phone] [address] 05/21/2025 11:08 AM EDT Anesthesia Event [facility] Main OR [address] [place] [phone] Freddie Villa DO Burton, Heather, CRNA 05/21/2025 10:00 AM EDT - 05/21/2025 12:30 PM EDT Surgery [facility] OR [address] [place] [phone] Makenzie Rodriguez MD DAVINCI SLEEVE GASTRECTOMY [[id number] (CPT )] 05/21/2025 9:02 AM EDT - 05/22/2025 3:48 PM EDT Hospital Encounter [facility] Medical Surgical Unit [address] [place] [phone] Makenzie Rodriguez MD Morbid obesity with BMI of 45.0-49.9, adult ([facility] V24, [facility] V28) Discharge Disposition: Home or Self Care 05/19/2025 1:15 PM EDT Consult Bariatric Surgery [address] [phone] Makenzie Rodriguez MD Obesity, Class III, BMI 40-49.9 (morbid obesity) ([facility] V28) (Primary Dx); Sleep apnea, unspecified type; Gastroesophageal reflux disease, unspecified whether esophagitis present 05/07/2025 11:00 AM EDT Consult Bariatric Surgery [address] [phone] Mis Blakeah, RD Class 3 severe obesity with serious comorbidity and body mass index (BMI) of 45.0 to 49.9 in adult, unspecified obesity type ([facility] V24, [facility] V28) (Primary Dx) 05/05/2025 2:40 PM EDT - 05/05/2025 11:59 PM EDT Hospital Encounter [facility] Xray [address] [place] [address] Discharge Disposition: Home or Self Care from Last 3 Months Surgical History Surgery Date Site/Laterality Comments EYE SURGERY RETINAL DETACHMENT AMPUTATION [facility] Medical History Medical History Date Comments Other and unspecified hyperlipidemia 04/18/2005 DX:Other and unspecified hyperlipidemia Morbid obesity ([facility], [facility] V28) 04/18/2005 DX:Morbid obesity ([facility]) Type II or unspecified type diabetes mellitus without mention of complication, not stated as uncontrolled 04/18/2005 DX:Type II or unspecified ty pe diabetes mellitus without mention of complication, not stated as uncontrolled Type 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, uncontrolled(250.42) ([facility] V24, [facility] V28) 02/01/2007 DX:Type II or unspecified ty pe diabetes mellitus with renal manifestations, uncontrolled(250.42) ([facility]) Reflux 07/27/07 DX:Reflux Essential hypertension, benign 05/17/07 D X:Essential hypertension, benign Essential hypertension, benign 05/17/07 D X:Essential hypertension, benign Preglaucoma 07/27/07 DX:Preglaucoma Chronic kidney disease CKD (chronic kidney disease) stage 3, GFR 30-59 ml/min ([facility] V24, [facility] V28) per h&p CVA (cerebral vascular accid ent) ([facility] V24, [facility] V28) right sided weakness Retinopathy due to secondary diabetes mellitus ([facility] [place], [facility] V28) Family History Medical History Relation Name [...] your loved ones. For example, child care specialist or elderly care for an older [...] Care Team (Late st Contact Info) Description 08/04/2025 1:45 PM EST Office Visit Bariatric Surgery - [place] [address] [address] Makenzie Rodriguez MD [address] [place] [phone] 09/21/2025 2:00 PM EST Nutrition Bariatric Surgery - [place] [address] [phone] Carmel Blake, CASIMIRO [address] [phone] Health Maintenance Due Date Last [...] of5 resultswithin the time period is included. [facility] [address] Glucose POCT 183(H) 70 - 100 mg/dL 05/22/2025 11:07 AM EDT [facility] Blood Capillary blood specimen / Unknown 05/22/2025 11:06 AM EDT 05/22/2025 11:08 AM EDT us Makenzie Rodriguez MD LAB POINT OF CA RE TEST DOCKED DEVICE UNSOLICITED RESULTS Final Result [facility] [address] [place] [address], * (ABNORMAL) CBC auto differential (05/22/2025 8:02 AM EDT) Only the most recent of2 resultswithin the time period is included. [facility] [address] WBC 10.3 4.8 - 10.8 K/mcL LAB HEMETOLOGY METHOD 05/22/2025 8:33 AM [facility] RBC 4.10(L) 4.50 - 5.50 M/[facility] LAB HEMETOLOGY METHOD 05/22/2025 8:33 AM [facility] Hemoglobin 12.1(L) 13.5 - 17.5 g/dL LAB HEMETOLOGY METHOD 05/22/2025 8:33 AM [facility] Hematocrit 35.9(L) 42.0 - 54.0 % LAB HEMETOLOGY METHOD 05/22/2025 8:33 AM [facility] MCV 86.7 79.0 - 98.0 FL LAB HEMETOLOGY METHOD 05/22/2025 8:33 AM [facility] MCH 29.2 27.0 - 32.0 pcg LAB HEMETOLOGY METHOD 05/22/2025 8:33 AM [facility] MCHC 33.7 32.0 - 37.0 g/dL LAB HEMETOLOGY METHOD 05/22/2025 8:33 AM [facility] RDW 13.1 11.0 - 15.0 % LAB HEMETOLOGY METHOD 05/22/2025 8:33 AM [facility] Platelets 332 130 - 400 K/[facility] LAB HEMETOLOGY METHOD 05/22/2025 8:33 AM [facility] MPV 9.5 7.0 - 11.0 FL LAB HEMETOLOGY METHOD 05/22/2025 8:33 AM [facility] NRBC 0.0 <1.0 % LAB HEMETOLOGY METHOD 05/22/2025 8:33 AM [facility] NRBC Absolute 0.00 <0.10 K/[facility] LAB HEMETOLOGY METHOD 05/22/2025 8:33 AM [facility] Neutrophils Relative 75.8 % LAB HEMETOLOGY METHOD 05/22/2025 8:33 AM [facility] Lymphocytes Relative 15.9 % LAB HEMETOLOGY METHOD 05/22/2025 8:33 AM [facility] Monocytes Relative 7.8 % LAB HEMETOLOGY METHOD 05/22/2025 8:33 AM [facility] Eosinophils Relative 0.1 % LAB HEMETOLOGY METHOD 05/22/2025 8:33 AM [facility] Basophils Relative 0.2 % LAB HEMETOLOGY METHOD 05/22/2025 8:33 AM [facility] Immature Granulocytes Relative 0.2 % LAB HEMETOLOGY METHOD 05/22/2025 8:33 AM [facility] Neutrophils Absolute 7.78(H) 1.50 - 7.00 K/mcL LAB HEMETOLOGY METHOD 05/22/2025 8:33 AM [facility] Lymphocytes Absolute 1.63 1.00 - 5.00 K/mcL LAB HEMETOLOGY METHOD 05/22/2025 8:33 AM [facility] Monocytes Absolute 0.80 0.20 - 1.00 K/mcL LAB HEMETOLOGY METHOD 05/22/2025 8:33 AM [facility] Eosinophils Absolute 0.01 0.00 - 0.50 K/mcL LAB HEMETOLOGY METHOD 05/22/2025 8:33 AM [facility] Basophils Absolute 0.02 0.00 - 0.20 K/mcL LAB HEMETOLOGY METHOD 05/22/2025 8:33 AM [facility] Immature Granulocytes Absolute 0.02 0.00 - 0.03 K/mcL LAB HEMETOLOGY METHOD 05/22/2025 8:33 AM [facility] Blood Venous blood specimen / Unknown Venipuncture / Unknown 05/22/2025 8:02 AM EDT 05/22/2025 8:21 AM EDT us Yolette URIBE LAB BLOOD ORDERABLES Final Res ult Performing Organization Address [facility]/ZIP Co de Phone Number [facility] [address] [place] [address], [place] [phone] * (ABNORMAL) Magnesium (05/22/2025 8:02 AM EDT) [facility] [address] Magnesium 1.6(L) 1.9 - 2.6 mg/dL LAB CHEMISTRY METHOD 05/22/2025 8:53 AM EDT [facility] Blood Venous blood specimen / Unknown Venipuncture / Unknown 05/22/2025 8:02 AM EDT 05/22/2025 8:21 AM EDT us Yolette URIBE LAB BLOOD ORDERABLES Final Res ult Performing Organization Address City/[facility]/ZIP Co de Phone Number [facility] [address] [place] [address], [place] [phone] * (ABNORMAL) Basic metabolic panel (05/22/2025 8:02 AM EDT) [facility] [address] [facility] Sodium 137 133 - 145 mmol/L LAB CHEMISTRY METHOD 05/22/2025 8:53 AM EDT [facility] Potassium 4.7 3.5 - 5.5 mmol/L LAB CHEMISTRY METHOD 05/22/2025 8:53 AM EDT [facility] Chloride 105 96 - 110 mmol/L LAB CHEMISTRY METHOD 05/22/2025 8:53 AM EDT [facility] CO2 26 21 - 32 mmol/L LAB CHEMISTRY METHOD 05/22/2025 8:53 AM EDT [facility] Anion Gap 6 3 - 11 LAB CHEMISTRY METHOD 05/22/2025 8:53 AM EDT [facility] Glucose 187(H) 70 - 100 mg/dL LAB CHEMISTRY METHOD 05/22/2025 8:53 AM EDT [facility] BUN 21 5 - 25 mg/dL LAB CHEMISTRY METHOD 05/22/2025 8:53 AM EDT [facility] Creatinine 1.19 0.70 - 1.30 mg/dL LAB CHEMISTRY METHOD 05/22/2025 8:53 AM EDT [facility] eGFR 79 >=60 mL/min/1. 73m2 LAB CHEMISTRY METHOD 05/22/2025 8:53 AM EDT [facility] Comment:Calculation based on the Chronic Kidney Disease Epidemiology Collaboration (CKD-EPI) equation refit without adjustment for race. BUN/Creatinine Ratio 17.6 LAB CHEMISTRY METHOD 05/22/2025 8:53 AM EDT [facility] Calcium 9.2 8.5 - 10.5 mg/dL LAB CHEMISTRY METHOD 05/22/2025 8:53 AM EDT [facility] Blood Venous blood specimen / Unknown Venipuncture / Unknown 05/22/2025 8:02 AM EDT 05/22/2025 8:21 AM EDT Yolette URIBE LAB BLOOD ORDERABLES Final Res ult [facility] [address] [place] [address], * Tissue exam (05/21/2025 12:59 PM EDT) [...] consist of red, bilious and bloody material. Boiler Inspector sections are submitted in one cassette to [...] MD LAB PATHOLOGY ORDERABLE S Final Result [facility] [address] [place] [address], * TH AN ENDOTRACHEAL(NO CHARGE) (05/21/2025 11:34 AM EDT) Narrative Doreen Gordon CRNA - 05/21/2025 11:34 AM EDT Doreen Gordon CRNA 05/21/2025 11:36 AM General Information and Staff Patient location during procedure: OR Resident/TOBACCO SAMPLER: Doreen Gordon CRNA Performed: resident/TOBACCO SAMPLER/CAA Performed by: Doreen Gordon CRNA Authorized by: [...] AM EDT No acute pulmonary disease. Code 26823 -------- FINAL REPORT -------- Dictated By: Reji Nicholson Dictated Date: 05/06/2025 07:50 ET Assigned Physician: Reji Nicholson Reviewed and Electronically Signed By: Reji Nicholson Signed Date: 05/06/2025 07:51 ET Workstation ID: [id number] Transcribed By: Self Edit Transcribed Date: 05/06/2025 [...] clear. IMPRESSION: No acute pulmonary disease. Code 13649 -------- FINAL REPORT -------- Dictated By: Reji Nicholson Dictated Date: 05/06/2025 07:50 ET Assigned Physician: Reji Nicholson Reviewed and Electronically Signed By: Reji Nicholson Signed Date: 05/06/2025 07:51 ET Workstation ID: [id number] Transcribed By: Self Edit Transcribed Date: 05/06/2025 07:50 ET us Makenzie Rodriguez MD IMG XR PROCEDURES Final Result * ECG 12 lead (05/05/2025 2:34 PM EDT) Ventricular Rate ECG 78 BPM GEMUSE Atrial Rate 78 BPM GEMUSE P-R Interval 170 ms GEMUSE QRS Duration 86 ms GEMUSE Q-T Interval 356 ms GEMUSE QTc 405 ms GEMUSE P Wave Tyler 46 degrees GEMUSE R Tyler -49 degrees GEMUSE T Tyler 17 degrees GEMUSE ECG Interpretation Normal sinus [...] BLOOD BANK TEST ORD ERABLES Final Result [facility] [address] [place] [address], [place] [phone] * (ABNORMAL) CMP (05/05/2025 2:18 PM EDT) Sodium 139 133 - 145 mmol/L LAB CHEMISTRY METHOD 05/05/2025 4:42 PM [facility] Potassium 4.9 3.5 - 5.5 mmol/L LAB CHEMISTRY METHOD 05/05/2025 4:42 PM [facility] Chloride 105 96 - 110 mmol/L LAB CHEMISTRY METHOD 05/05/2025 4:42 PM [facility] CO2 29 21 - 32 mmol/L LAB CHEMISTRY METHOD 05/05/2025 4:42 PM [facility] Anion Gap 5 3 - 11 LAB CHEMISTRY METHOD 05/05/2025 4:42 PM [facility] Glucose 119(H) 70 - 100 mg/dL LAB CHEMISTRY METHOD 05/05/2025 4:42 PM [facility] BUN 21 5 - 25 mg/dL LAB CHEMISTRY METHOD 05/05/2025 4:42 PM [facility] Creatinine 1.44(H) 0.70 - 1.30 mg/dL LAB CHEMISTRY METHOD 05/05/2025 4:42 PM [facility] eGFR 63 >=60 mL/min/1. 73m2 LAB CHEMISTRY METHOD 05/05/2025 4:42 PM [facility] Comment:Calculation based on the Chronic Kidney Disease Epidemiology Collaboration (CKD-EPI) equation refit without adjustment for race. BUN/Creatinine Ratio 14.6 LAB CHEMISTRY METHOD 05/05/2025 4:42 PM [facility] Calcium 9.3 8.5 - 10.5 mg/dL LAB CHEMISTRY METHOD 05/05/2025 4:42 PM EDT [facility] AST (SGOT) 20 10 - 42 unit/L LAB CHEMISTRY METHOD 05/05/2025 4:42 PM EDT [facility] ALT (SGPT) 30 10 - 60 unit/L LAB CHEMISTRY METHOD 05/05/2025 4:42 PM EDT [facility] Alkaline Phosphatase 128(H) 42 - 121 unit/L LAB CHEMISTRY METHOD 05/05/2025 4:42 PM EDT [facility] Total Protein 6.8 6.0 - 8.0 g/dL LAB CHEMISTRY METHOD 05/05/2025 4:42 PM EDT [facility] Albumin 3.5 3.2 - 5.0 g/dL LAB CHEMISTRY METHOD 05/05/2025 4:42 PM EDT [facility] Total Bilirubin 0.7 0.0 - 1.4 mg/dL LAB CHEMISTRY METHOD 05/05/2025 4:42 PM EDT [facility] Blood Venous blood specimen / Unknown Venipuncture / Unknown 05/05/2025 2:18 PM EDT 05/05/2025 4:17 PM EDT us Makenzie Rodriguez MD LAB BLOOD ORDERABLES Fi nal Result [facility] [address] [place] [address], from Last 3 Months Additional Health Concerns Active Problems Noted Date Diagnosed Date Autogenerated Problem 05/04/2025 [place] [address] Advance Directives * Full Code - Default [...] currently active code status orders. Care Teams Floor Installer Relationship Specialty Start Date End Date Clay Guevara PA [address] [place] [phone] PCP - General Physician Top Lift Compresser 01/05/25
--- OUTSIDE RECORDS SUMMARY | 2025-07-29 11:09 | XMS_ITS | Encounter Summary ---
Author Organization [facility], Address [address] [place] [address] Phone Care Team Providers Care College Football Coach Name Role Phone Clay Guevara Primary Care Provider [phone] Reason for Visit * Reason Onset Date Comments FPC visit 08/14/2019 CKDIII/HTN Encounter Details Date Type Department Care Team (Late st Contact Info) Description 08/14/2019 Documentation Only [facility] [address] [place] [address] Connie Stafford PA Social History [...] on filedocumented in this encounter Care Teams College Football Coach Relationship Specialty Start Date End Date Clay Guevara PA [address], [address] [place] [address] PCP - General Physician Patient Assessment Coordinator 06/23/20 documented as of this encounter
[2025-07-29 11:19] VITALS: BMI 45.0
--- NOTE | 2025-07-29 11:19 | A.OFFVIS_ITS ---
Vital Signs 07/29/25 11:19 Height 5 ft 9 in Weight 305 lb BMI 45.0 Intake Visit Reasons: follow up CTA w/ runoff 07/23/25 Intake Note: follow up CTA w/ runoff 07/23/25 for Hx of Right BKA that isnt accommodating a prosthetic Veneer Taping Machine Offbearer Required: No Accompanied by: Self / Same As Patient Allergies NSAIDS (Non-Steroidal Anti-Inflamma Allergy (Unknown, Verified 07/29/25 11:23) Unknown sulfamethoxazole (From Bactrim) Adverse Reaction (Intermediate, Verified 07/29/25 11:23) Elevated renal functions trimethoprim (From Bactrim) Adverse Reaction (Intermediate, Verified 07/29/25 11:23) Elevated renal functions HPI HPI follow up CTA w/ runoff 07/23/25: Details: The patient is a 39 year old male presenting for follow-up evaluation of a right below-knee issue. There was excessive soft tissue and he is unable to wear a prosthetic well. He underwent a CAT scan on July 23, 2025, which revealed the issue is confined to soft tissue, with no bone involvement or foreign bodies noted. He has a history of diabetes, for which he takes Mounjaro. He reports taking baby aspirin but denies being on any other blood thinners. [facility] Medical History Acute respiratory disease Depression Insomnia Anxiety DJD (degenerative joint disease) Sleep apnea treated with continuous positive airway pressure (CPAP) Arthritis PAD (peripheral artery disease) CKD (chronic kidney disease) Exposure to bloodborne pathogen Abnormal stress test History of stroke Morbid obesity NOLAN (obstructive sleep apnea) HTN (hypertension) Right below-knee amputee Blind left eye Neuropathy CVA (cerebral vascular accident) (~2019) Sleep apnea Obesity Vitamin D deficiency HLD (hyperlipidemia) GERD (gastroesophageal reflux disease) Below knee amputation Type 2 diabetes mellitus Surgical History History of bariatric surgery History of esophagogastroduodenoscopy (EGD) (10/15/24) Hx of eye surgery History of amputation of right foot Family History Mother Diabetes Father Prostate cancer Paternal Aunt Diabetes Brother No problems noted. Brother No problems noted. Brother No problems noted. Brother No problems noted. Brother No problems noted. Sister No problems noted. Social History Household Members: None Housing: Apartment Are you a primary critical care paramedic to a significant other at home: No Do you presently have visiting nurse or other home services: Yes (COMPLEX CASE MANAGER daily) 75 years or older and lives alone: No Alcohol intake: never Patient Tobacco Use Status: Never used Tobacco e-Cigarette/Vaping Use: Never Used Second Hand Smoke Exposure: No service: No Current occupational status: disabled Cognitive needs: Yes (walk, wheelchair (w/c weighs 360lbs)) Hearing needs: No Vision needs: Yes (glasses) Review of Systems Const All systems reviewed & are unremarkable except as noted in HPI and below Reports no additional complaints ENT Reports Normal hearing present Card Denies chest pain, Denies chest pain at rest, Denies chest pain with activity and Denies pedal edema Resp Denies cough GI Denies abdominal pain Musc Denies abnormal gait, Denies muscle cramps and Denies radiating pain into limb Skin/Breast Denies skin ulcer and Denies wounds Neuro Reports Normal hearing present and Denies abnormal gait Psych Reports no additional complaints Physical Exam Vital Signs: BMI result Body Mass Index 45.0 Const General: cooperative, healthy appearing and comfortable Orientation/consciousness: oriented to person, oriented to place and oriented to time HEENT Head: Yes normal to inspection Neck Neck: Yes normal visual inspection Carotids: no bruits Chest Chest palpation & inspection: normal inspection of the chest Resp Effort & Inspection: normal respiratory effort and able to speak in complete sentences Auscultation: clear to auscultation bilaterally, no crackles, no rales, no rhonchi and no wheezes Cardio Rate: regular rate Rhythm: regular rhythm Heart sounds: S1 normal heart sound present and S2 normal heart sound present Bruits: no carotid bruits Peripheral pulses: Peripheral pulses 2+ throughout GI Inspection: Yes normal to inspection Skin Wounds: amputation site (Right BKA) Hair: normal Neuro General: oriented to person, oriented to place and oriented to time Cranial nerves: Yes CN's II-XII intact bilaterally and Yes Normal hearing present Cognition (Neuro): normal cognition Motor exam (neuro): 5/5 motor strength present throughout Extrem Other: venous exam: No significant superficial varicosities or spider telangiectasias, minimal edema General: No clubbing, No cyanosis and No edema Psych Appearance: grossly normal Mental Status: mental status grossly normal Speech and movement: Normal speech and movement present Assessment & Plan Assessment & Plan (1) History of right below knee amputation: Code(s): Z89.511 - Acquired absence of right leg below knee Category: Surgical Plan: I reviewed the results of the July 23, 2025, CAT scan with the patient, explaining that it showed only soft tissue involvement in his right below-knee stump without any bone abnormalities or foreign material, which was a concern. I recommended a surgical revision to improve the condition of the stump and enable better use of a prosthetic. I detailed that the operation would take about one to two hours and require a subsequent hospital stay of two to three days for observation. In short the patient will require right below-knee amputation revision. Risks benefits complications of the procedure were discussed in detail including but not limited to bleeding infection and nonhealing.We discussed that healing can be a challenge, particularly with his history of diabetes. We will schedule as soon as possible. Thank you for allowing us to assist in his care. Coding Level of Care Code Est Pt Level 4 (55815) Diagnoses History of right below knee amputation Z89.511
== END 2025-07-29 12:03 | disposition home or self-care (01) ==
LOC: HO.HVS 11:02
PROVIDERS: PCP Physician Assistant; Visit Provider Surgery Vascular Surgery
DX: Z89.511 Acquired absence of right leg below knee (principal)
CPT/HCPCS: 99214

== ENCOUNTER → 2025-07-29 11:01 | Outpatient (BNVA) | payer OTHER, SELFPAY | PROVIDERS: PCP Physician Assistant; Visit Provider Surgery Vascular Surgery | DX: Z47.1 Aftercare following joint replacement surgery (principal); Z89.511 Acquired absence of right leg below knee | CPT/HCPCS: 99212 ==

== ENCOUNTER 2025-08-04 15:14 | Outpatient (AMB) | payer OTHER, SELFPAY ==
--- OUTSIDE RECORDS SUMMARY | 2025-08-04 13:45 | XMS_ITS | Encounter Summary ---
Author Organization [facility] Address [address] [place] [address] Care Team Providers Care Filling Winder Name Role Phone Clay Guevara Primary Care Provider [phone] Reason for Visit * Reason Comments Post-op Visit Sleeve 05/21 Encounter Details Date Type Department Care Team ([facility] st Contact Info) Description 08/04/2025 1:45 PM EST Office Visit Bariatric Surgery - [address] [place] [address] Makenzie Rodriguez MD [address] [place] [phone] S/P bariatric surgery (Primary Dx); Primary hypertension; Type 2 diabetes mellitus in patient with obesity (CMS/HCC V24, CMS/HCC V28); Sleep apnea, unspecified type Social History Tobacco Use Types Packs/Day Years [...] Record ed Within the last 3 months, issa w many times did you visit the [...] do you feel lonely or isolated from ose around you? Never 05/21/2025 Food Risk [...] care for your loved ones. For example, children's tutor nursery or elderly care for an older adult? [...] PM EDT documented as of this encounter Last Filed Vital Signs Vital Sign Reading Time Taken Comments Blood Pressure 153/83 08/04/2025 1:36 PM EST Pulse 88 08/04/2025 1:36 PM EST Temperature 36.2 C (97.1 F) 08/04/2025 1:36 PM EST Respiratory Rate - - Oxygen Saturation - - Inhaled Oxygen Concentration - - Weight 137 kg (303 lb) 08/04/2025 1:36 PM EST Height 175.3 cm (5' 9 ) 08/04/2025 1:36 PM EST Body Mass Index 44.75 08/04/2025 1:36 PM EST documented in this encounter Progress Notes * Makenzie Rodriguez MD - 08/04/2025 1:45 PM EST Jerome presents for follow up of a sleeve gastrectomy on 05/21/25. Last seen 06/23/25 Diet: no n/v, no reflux, no food intolerance. Minimal appetite. Eats 2 eggs in the morning then nothing really until about 4 PM. Dinner is veggies and meat. Fluid: 40-60oz water or gatorade zero Exercise: weight lifting, 4 days of PT and OT (stairs, walking, weight lifting) MVI: yes Comorbidity: -DM-on tresiba x once (stopped humalog) -HTN-on Coreg, lisinopril, hydrochlorothiazide -NOLAN Weight change since preop: 323-303=-20 lbs Weight change since last visit: 309-303=-6 lbs Vitals: 08/04/25 1336 BP: (!) 153/83 BP Location: Left arm Patient Position: Sitting BP Cuff Size: Large adult long Pulse: 88 Temp: 36.2 ??C (97.1 ??F) TempSrc: Temporal Weight: 137 kg (303 lb) Height: 1.753 m (69 ) A/P: 2.5 months s/p sleeve. Has increased his exercise intensity but only lost 6 pounds since his last visit. Continue healthy diet and exercise. It sounds like he actually may be eating too little. Recommend counting his calories he should be getting closer to over thousand with a. May be going into starvation mode. Follow-up with dietitian. Due for labs at 3 months. Ordered. Has a follow-up with the dietitian in the September. Stopped Humalog. Now only on Tresiba for diabetes. Denies any episodes of hypoglycemia. Lowest numbers are around 80. Hypertension: Continue current meds. I will see him in 3 more months. documented in this encounter Plan of Treatment Upcoming Encounters Date Type Department Care Team (Late st Contact Info) Description 09/21/2025 2:00 PM EST Nutrition Bariatric Surgery - [place] [address] [phone] Carmel Blake, RD [address] [phone] 11/09/2025 12:45 PM EDT Office Visit Bariatric Surgery - [place] [address] [phone] Makenzie Rodriguez MD [address] [place] [address] Scheduled Orders Name Type Priority Associated Diagnoses Orde r Schedule CBC and differential Lab Routine S/P bariatric surgery 1 Occurrences starting 08/04/2025 until 08/04/2026 Copper Lab Routine S/P bariatric surgery 1 Occurrences starting 08/04/2025 until 08/04/2026 Zinc Lab Routine S/P bariatric surgery 1 Occurrences starting 08/04/2025 until 08/04/2026 Selenum Lab Routine S/P bariatric surgery 1 Occurrences starting 08/04/2025 until 08/04/2026 Folate Lab Routine S/P bariatric surgery 1 Occurrences starting 08/04/2025 until 08/04/2026 Iron and TIBC Lab Routine S/P bariatric surgery 1 Occurrences starting 08/04/2025 until 08/04/2026 Vitamin B1 Lab Routine S/P bariatric surgery 1 Occurrences starting 08/04/2025 until 08/04/2026 Vitamin B12 Lab Routine S/P bariatric surgery 1 Occurrences starting 08/04/2025 until 08/04/2026 Vitamin B6 Lab Routine S/P bariatric surgery 1 Occurrences starting 08/04/2025 until 08/04/2026 Vitamin D 25 hydroxy Lab Routine S/P bariatric surgery 1 Occurrences starting 08/04/2025 until 08/04/2026 documented as of this encounter Goals Goal Patient Goal Type Associated Problems Recent Progress Patient-Stated? Author Autogenera geetha Goal Care Plan Autogenerated Problem No Makenzie Rodriguez MD documented as of this encounter Visit Diagnoses Diagnosis S/P bariatric surgery- Primary Primary hypertension Unspecified essential hypertension Type 2 diabetes mellitus in patient with obesity ([facility] V24, [facility] V28) Sleep apnea, unspecified type documented in this encounter Discontinued Medications Medication Sig Discontinue Reason Start Date End Da te HumaLOG KwikPen Insulin 200 unit/mL (3 mL) CONCENTRATED injection pen Inject 38 Units under the skin 1 (one) time each day before dinner. 04/21/2025 08/04/2025 hydrALAZINE (APRESOLINE) 100 mg tablet Take 1 tablet (100 mg total) by mouth 2 (two) times a day. 08/04/2025 famotidine (PEPCID) 20 mg tablet Take 1 tablet (20 mg total) by mouth 1 (one) time each day. 08/04/2025 oxyCODONE (ROXICODONE) 5 mg immediate release tablet Take 1 tablet (5 mg total) by mouth every 4 (four) hours if needed for severe pain. Max Daily Amount: 30 mg 05/22/2025 08/04/2025 simethicone (MYLICON) 80 mg chewable tablet Chew 1 tablet (80 mg total) every 6 (six) hours if needed for flatulence. 05/19/2025 08/04/2025 wheat dextrin 3 gram/3.5 gram powder in packet Take 1 packet by mouth 1 (one) time each day. 05/19/2025 08/04/2025 documented as of this encounter Additional Health Concerns Active Problems Noted Date Diagnosed Date Autogenerated Problem 05/04/2025 documented as of this encounter Care Teams Filling Winder Relationship Specialty Start Date End Date Clay Guevara PA [address] [place] [phone] PCP - General Physician Cable Assembler 01/05/25 documented as of this encounter
[2025-08-04 15:16] VITALS: BP 128/72; PULSE 78; O2SAT 99
--- NOTE | 2025-08-04 15:16 | A.OFFVIS_ITS ---
Vital Signs 08/04/25 15:16 Height 5 ft 9 in BP 128/72 Blood Pressure Location Lt brachial Position Sitting Pulse 78 Pulse Source Pulse Oximeter Pulse Oximetry (%) 99 Oxygen Delivery Method Room Air Intake Visit Reasons: Type II DM-med review Intake Note: Patient present today for Type 2 Diabetes Mellitus Last Diabetic eye exam: Last exam was within the year Last Podiatry Visit: Last seen in 05/2025 Random Glucose: 106 mg/dl HgA1C: 7.0% Skilled Nursing Facility Counselor Required: No Accompanied by: Self / Same As Patient Allergies NSAIDS (Non-Steroidal Anti-Inflamma Allergy (Unknown, Verified 08/04/25 15:23) Unknown sulfamethoxazole (From Bactrim) Adverse Reaction (Intermediate, Verified 08/04/25 15:23) Elevated renal functions trimethoprim (From Bactrim) Adverse Reaction (Intermediate, Verified 08/04/25 15:23) Elevated renal functions Medication List - Last Reconciled 08/04/25 by RONY Moore acetaminophen ER 1,300 mg (2 x 650 mg) PO Q8H PRN 90 days alcohol swabs 1 pad topical QID aspirin (Adult Aspirin Regimen) 81 mg PO DAILY 90 days atorvastatin 80 mg PO BEDTIME 30 days [BARIATRIC WALKER As directed] blood pressure kit-extra large As directed blood pressure monitor As directed blood sugar diagnostic (FreeStyle Lite Strips) As directed to check glucose up to 3 times daily blood-glucose meter (FreeStyle Lite Meter kit) 3 times a day blood-glucose sensor (FreeStyle Kishan 3 Plus Sensor device) Apply 1 new sensor every 15 days as directed to monitor blood glucose continuously. blood-glucose,c engineer,cont (FreeStyle Kishan 3 [place]) Use daily to monitor blood glucose levels continuously. carvedilol 25 mg PO BID chair, wheel (Wheel chair) LIFETIME USE cholecalciferol (vitamin D3) (Vitamin D3) 25 mcg PO DAILY emtricitabine-tenofovir alafen 200-25 mg (Descovy) 1 tab PO DAILY 30 days famotidine 20 mg PO BEDTIME ferrous sulfate 325 mg PO DAILY furosemide 40 mg (2 x 20 mg) PO DAILY 30 days gabapentin 800 mg PO TID 30 days glucose (Dex4 Glucose Quick Dissolve) 16 grams (4 x 4 gram) PO Q15M PRN hydralazine 100 mg PO BID Held on 11/19/25. Instructions: Doctor's Order incontinence pad, liner, disp As directed insulin degludec (Tresiba FlexTouch U-200 insulin) 50 units subcut BEDTIME lancets As directed lancets (FreeStyle Lancets) Use to monitor blood glucose 3 times daily. latex gloves (Latex Gloves, Large) As directed lisinopril 1 tab PO DAILY [manual wheel chair As directed with adjustable leg rests ] melatonin 10 mg PO DAILY miscellaneous medical supply 1 ea miscellaneous DAILY 90 days nifedipine ER 90 mg PO DAILY 90 days omeprazole 20 mg PO BID pen needle, diabetic As directed [Power wheel chair As directed] [Replacement prosthesis for right lower extremity As directed] spironolactone 25 mg PO DAILY 90 days sucralfate 10 mL PO BID tirzepatide (Mounjaro) 10 mg (0.5 mL) subcut QWEEK tramadol 50 mg PO TID PRN 30 days walker (Ultra-Light Rollator misc) As directed [Walker repair As directed] HPI Comments Details: This is a 39-year-old male with a past medical history of type 2 diabetes, fatty liver disease, lymphedema, peripheral arterial disease, CKD stage 3, hypertension, obesity, NOLAN, GERD, CVA, hyperlipidemia and vitamin-D deficiency presenting for diabetic management. He was initially diagnosed with type 2 diabetes at the age of [age] years old. He had a gastric sleeve procedure at [facility] with Dr. Rodriguez 05/21/2025. Current medication regimen: Tresiba 60 units at bedtime, Mounjaro 5 mg. I submitted a prescription for the 7.5 mg for a refill, but he would like to increase to 10 mg. He was previously on doses as high as 15 mg, and he recently took a dose of his friends 15 mg Mounjaro and had no side effects. Past medications: Previously on Zepbound. He requested to go back on Ozempic, but his insurance denied it. He discontinued Humalog due to hypoglycemia. He was initially treated with metformin and glyburide at diagnosis and began using insulin at age 20. Hemoglobin A1c 7% today. Reviewed CGM data on his phone: Very high 0% 17% high 83% in range 0% low Diabetic complications: Retinopathy, neuropathy, nephropathy (CKD and microalbuminuria), atherosclerotic vascular disease. CAD, CVA, Right BKA 8 years ago. His blood pressure is elevated today. He takes spironolactone, nifedipine, lisinopril. Patient is no longer taking hydralazine. Hyperlipidemia is treated with atorvastatin Last seen by Podiatry in May this year. ROS: Constitutional: No unexplained weight loss, fever, chills, fatigue or night sweats. Respiratory: No shortness of breath Cardiovascular: No chest pain Neurologic: No headache or dizziness Endocrine: No cold or heat intolerance. No polyuria or polydipsia. Physical exam: Constitutional: Alert, in no distress. Neck: Supple, Full range of motion. No lymphadenopathy. Respiratory: Clear to auscultation. Cardiovascular: S1 S2 regular. No murmurs Neurologic: No focal neurological deficits. Psychiatric: Normal mood and affect [facility] Medical History Acute respiratory disease Depression Insomnia Anxiety DJD (degenerative joint disease) Sleep apnea treated with continuous positive airway pressure (CPAP) Arthritis PAD (peripheral artery disease) CKD (chronic kidney disease) Exposure to bloodborne pathogen Abnormal stress test History of stroke Morbid obesity NOLAN (obstructive sleep apnea) HTN (hypertension) Right below-knee amputee Blind left eye Neuropathy CVA (cerebral vascular accident) (~2018) Sleep apnea Obesity Vitamin D deficiency HLD (hyperlipidemia) GERD (gastroesophageal reflux disease) Below knee amputation Type 2 diabetes mellitus Surgical History History of bariatric surgery History of esophagogastroduodenoscopy (EGD) (10/15/24) Hx of eye surgery History of amputation of right foot Family History Mother Diabetes Father Prostate cancer Paternal Aunt Diabetes Brother No problems noted. Brother No problems noted. Brother No problems noted. Brother No problems noted. Brother No problems noted. Sister No problems noted. Social History Household Members: None Housing: Apartment Are you a primary healthcare network pricing consultant to a significant other at home: No Do you presently have visiting nurse or other home services: Yes (ABRASIVE SAWYER daily) 75 years or older and lives alone: No Alcohol intake: never Patient Tobacco Use Status: Never used Tobacco e-Cigarette/Vaping Use: Never Used Second Hand Smoke Exposure: No service: No Current occupational status: disabled Cognitive needs: Yes (walk, wheelchair (w/c weighs 360lbs)) Hearing needs: No Vision needs: Yes (glasses) Physical Exam Vital Signs: Last Vital Signs Pulse 78 08/04/25 15:16 BP 128/72 08/04/25 15:16 Pulse Ox 99 08/04/25 15:16 Oxygen Delivery Method Room Air 08/04/25 15:16 Results AMB Hemoglobin A1c AMB Hemoglobin A1c 7.0 % Last Edit by YUNI Barbour on 08/04/25 15:39 Results Reviewed Results Reviewed: Laboratory Last Values Glucose (Clinic) 106 mg/dL (60-115) 08/04/25 15:25 Laboratory Tests 07/23/25 10:05 Creatinine 1.21 Estimated GFR > 60 AST 24 ALT 14 Triglycerides 152 H Cholesterol 109 LDL Cholesterol, Calc 55 HDL Cholesterol 24 L Urine Creatinine 296.48 Urine Microalbumin > 2000.0 Microalb/Creat Ratio 674.5 H Assessment & Plan Assessment & Plan (1) Type 2 diabetes mellitus with unspecified complications: Code(s): E11.8 - Type 2 diabetes mellitus with unspecified complications Category: Medical (2) HTN (hypertension): Code(s): I10 - Essential (primary) hypertension Category: Medical Qualifiers: Hypertension type: essential hypertension Qualified Code(s): I10 - Essential (primary) hypertension (3) Morbidly obese: Code(s): E66.01 - Morbid (severe) obesity due to excess calories Category: Medical Plan 39-year-old male with type 2 diabetes, controlled, with multiple complications. Status post gastric sleeve 05/21/2025. Patient can increase Mounjaro to 10 mg weekly. Monitor closely for GI side effects. Reduce Tresiba to 50 units at bedtime. Remain off Humalog. Reviewed treatment of hypoglycemia. Hypertension-controlled. Continue current regimen. Continue atorvastatin 80 mg. Recommended low-cholesterol diet. Avoid full fat dairy products and red meat. Follow up in 1 month for type 2 diabetes to titrate Mounjaro. Orders: Orders AMB Hemoglobin A1c Today E11.8 - Type 2 diabetes mellitus with unspecified complications, Z13.9 - Encounter for screening, unspecified Medications: New tirzepatide (Mounjaro) 10 mg (0.5 mL) subcut QWEEK 2 mL 0RF Discontinued tirzepatide (Mounjaro) Discontinued Reason: Doctor's Order 7.5 mg (0.5 mL) subcut QWEEK 2 mL 0RF Coding Level of Care Code Est Pt Level 4 (31857) Add On Problem Visit Only Diagnoses Type 2 diabetes mellitus with unspecified complications E11.8 Essential hypertension I10 Hypertension type: essential hypertension Morbidly obese E66.01
[2025-08-04 15:29] LABS: Glucose, Whole Blood 106 mg/dL (60-115)
--- OUTSIDE RECORDS SUMMARY | 2025-08-04 18:39 | XMS_ITS | Encounter Summary ---
Author Organization [facility], Address [address] [place] [address] Phone Care Team Providers Care Latex Ribbon Machine Operator Name Role Phone Clay Guevara Primary Care Provider Encounter Details Date Type Department Care Team (Late st Contact Info) Description 04/28/2021 Documentation Only [facility], [address] [place] [address] Connie Stafford PA Social History Tobacco Use [...] on filedocumented in this encounter Care Teams Latex Ribbon Machine Operator Relationship Specialty Start Date End Date Clay Guevara PA [address], [address] [place], [place] [phone] PCP - General Physician Stamp Machine Servicer 06/23/20 documented as of this encounter
--- OUTSIDE RECORDS SUMMARY | 2025-08-04 18:39 | XMS_ITS | Encounter Summary ---
Author Organization [facility], Address [address] [place] [address] Phone Care Team Providers Care Patient Safety Attendant Name Role Phone Clay Guevara Primary Care Provider [phone] Reason for Visit * Reason Comments Med Refill Encounter Details Date Type Department Care Team (Late st Contact Info) Description 11/19/2023 Refill [facility], [address] [place] [phone] Lucio Hancock MD [address] [place] [phone] Social History Tobacco Use Types Packs/Day Years [...] on filedocumented in this encounter Care Teams Patient Safety Attendant Relationship Specialty Start Date End Date Clay Guevara PA [address], [address] [place], [place] [phone] PCP - General Physician Carding Doubler 06/23/20 documented as of this encounter
--- OUTSIDE RECORDS SUMMARY | 2025-08-04 18:39 | XMS_ITS | Encounter Summary ---
Author Organization [facility], Address [address] [place] [address] Phone Care Team Providers Care Nurse Special Name Role Phone Clay Guevara Primary Care Provider [phone] Reason for Visit * Reason Onset Date Comments half-way visit 08/14/2019 CKDIII/HTN Encounter Details Date Type Department Care Team (Late st Contact Info) Description 08/14/2019 Documentation Only [facility] [address] [place] [address] Connie Stafford PA Social History [...] on filedocumented in this encounter Care Teams Nurse Special Relationship Specialty Start Date End Date Clay Guevara PA [address], [address] [place] [address] PCP - General Physician Cloth Sponger 06/23/20 documented as of this encounter
--- OUTSIDE RECORDS SUMMARY | 2025-08-04 18:39 | XMS_ITS | Encounter Summary ---
Author Organization [facility], Address [address] [place] [address] Phone Care Team Providers Care Business Services Assistant Name Role Phone Clay Guevara Primary Care Provider Encounter Details Date Type Department Care Team (Late st Contact Info) Description 04/16/2024 Documentation Only [facility], [address] [place] [address] [place], [place] [address] [place] [address] Social History Tobacco Use Types [...] on filedocumented in this encounter Care Teams Business Services Assistant Relationship Specialty Start Date End Date Clay Guevara PA [address], [address] [place], [place] [phone] PCP - General Physician Auto Transmission Specialist 06/23/20 documented as of this encounter
--- OUTSIDE RECORDS SUMMARY | 2025-08-04 18:39 | XMS_ITS | Encounter Summary ---
Author Organization [facility], Address [address] [place] [address] Phone Care Team Providers Care Novelty Twister Operator Name Role Phone Clay Guevara Primary Care Provider [phone] Reason for Visit * Reason Comments Med Refill Encounter Details Date Type Department Care Team (Late st Contact Info) Description 12/15/2023 Refill [facility], [address] [phone] Lucio Hancock MD [address] [place] [phone] Social History Tobacco Use Types Packs/Day Years [...] on filedocumented in this encounter Care Teams Novelty Twister Operator Relationship Specialty Start Date End Date Clay Guevara PA [address], [address] [place], [place] [phone] PCP - General Physician Habilitation Training Specialist 06/23/20 documented as of this encounter
--- OUTSIDE RECORDS SUMMARY | 2025-08-04 18:40 | XMS_ITS | Clinical Summary ---
Author Organization [facility], Address [address] [place] [address] Phone Care Team Providers Care Direct Marketing Analyst Name Role Phone Clay Guevara Primary Care Provider [phone] Allergies Active Allergy Reactions Criticality Noted Date [...] Visit [facility] [address] [place] [address] Lucio Hancock MD Stage 3a chronic kidney [...] PM EDT) Hemoglobin A1C 7.5(H) (4.0-5.6) % [facility] Comment: MONITORING: In known diabetic patients, hemoglobin A1c targets should be discussed with health care provider. DIAGNOSTIC USE: The English Diabetes Association (ADA) and the World Health [...] Supplement 1 Testing performed or reported by [facility], a Service of [facility], [address] [place] [id number] Marco Delgado MD, [employer]# [id number] Blood specimen (specimen) Venous blood / Unknown 10/27/2021 3:46 PM EDT 10/27/2021 4:03 PM EDT us Connie URIBE LAB BLOOD ORDERABLES Final Res ult [facility] from Last 3 Months or Most Recently Relevant to Health Maintenance Insurance [facility] [employer] Care Teams Direct Marketing Analyst Relationship Specialty Start Date End Date Clay Guevara PA [address], [address] [place] [address] PCP - General Physician Saw Superintendent 06/23/20
--- OUTSIDE RECORDS SUMMARY | 2025-08-04 18:40 | XMS_ITS | Clinical Summary ---
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 06/05/20 18 Active atorvastatin (LIPITOR) 80 mg tablet Take 1 tablet (80 mg total) by mouth 1 (one) time each day. Active carvediloL (COREG) 25 mg tablet Take 1 tablet (25 mg total) by mouth 2 (two) times a day with meals. 09/01/19 21 Active cholecalciferol (VITAMIN D-3) 25 mcg (1,000 unit) tablet 1 tablet (1,000 Units total). Active hydroCHLOROthiaz michelle (HYDRODIURIL) 25 mg tablet Take 1 tablet (25 mg total) by mouth 1 (one) time each day. 07/20/20 10 Active Tresiba FlexTouch U-200 200 unit/mL (3 mL) CONCENTRATED injection pen Inject 70 Units under the skin at bedtime. 03/27/20 25 Active lisinopriL (PRINIVIL,ZESTRI L) 20 mg tablet Take 1 tablet (20 [...] by mouth 3 (three) times a day. 04/21/20 Active ursodioL (ACTIGALL) 300 mg capsule Take 1 capsule (300 mg total) by mouth 2 (two) times a day. 60 each 5 05/19/20 25 026 Active acetaminophen (TYLENOL) 500 mg tablet Take 2 tablets (1,000 mg total) by mouth every 8 (eight) hours. 180 tablet 06/23/20 Active famotidine (PEPCID) 20 mg tablet Take 1 tablet (20 mg total) by mouth 1 (one) time each day. 025 Discontinued hydrALAZINE (APRESOLINE) 100 mg tablet Take 1 tablet (100 mg total) by mouth 2 (two) times a day. 025 Discontinued HumaLOG KwikPen Insulin 200 unit/mL (3 mL) CONCENTRATED injection pen Inject 38 Units under the skin 1 (one) time each day before dinner. 04/21/20 025 Discontinued simethicone (MYLICON) 80 mg chewable tablet Chew 1 tablet (80 mg total) every 6 (six) hours if needed for flatulence. 30 tablet 05/19/20 25 025 Discontinued wheat dextrin 3 gram/3.5 gram powder in packet Take 1 packet by mouth 1 (one) time each day. 30 packet 05/19/20 025 Discontinued oxyCODONE (ROXICODONE) 5 mg immediate release tablet Take 1 tablet (5 mg total) by mouth every 4 (four) hours if needed for severe pain. Max Daily Amount: 30 mg 12 tablet 05/22/20 025 Discontinued Active Problems Problem Noted Date Diagnosed Date Class 3 severe obesity with serious comorbidity and body mass index (BMI) of 45.0 to 49.9 in adult 05/07/2025 Morbid obesity with BMI of 45.0-49.9, adult 04/06 Encounters Date Type Department Care Team Description 08/04/2025 1:45 PM EST Office Visit Bariatric Surgery - [address] [phone] Makenzie Rodriguez MD S/P bariatric surgery (Primary Dx); Primary hypertension; Type 2 diabetes mellitus in patient with obesity ([facility] V24, [facility] V28); Sleep apnea, unspecified type 06/23/2025 1:15 PM EST Office Visit Bariatric Surgery - [address] [phone] Makenzie Rodriguez MD S/P bariatric surgery (Primary Dx); Obesity, Class III, BMI 40-49.9 (morbid obesity) ([facility] V28) 06/23/2025 11:00 AM EST Telemedicine Bariatric Surgery - [address] [phone] [address] S/P bariatric surgery (Primary Dx) 05/26/2025 Telephone Bariatric Surgery - [address] [phone] 05/21/2025 11:08 AM EDT Anesthesia Event [address] [phone] Freddie Villa DO Burton, Heather, CRNA 05/21/2025 10:00 AM EDT - 05/21/2025 12:30 PM EDT Surgery [address] [phone] Makenzie Rodriguez MD DAVINCI SLEEVE GASTRECTOMY [84246 (CPT )] 05/21/2025 9:02 AM EDT - 05/22/2025 3:48 PM EDT Hospital Encounter [facility] [address] [place] [phone] Makenzie Rodriguez MD Morbid obesity with BMI of 45.0-49.9, adult ([facility] V24, [facility] V28) Discharge Disposition: Home or Self Care 05/19/2025 1:15 PM EDT Consult Bariatric Surgery - [place] [address] [phone] Makenzie Rodriguez MD Obesity, Class III, BMI 40-49.9 (morbid obesity) ([facility] V28) (Primary Dx); Sleep apnea, unspecified type; Gastroesophageal reflux disease, unspecified whether esophagitis present 05/07/2025 11:00 AM EDT Consult Bariatric Surgery - [place] [address] [phone] Class 3 severe obesity with serious comorbidity and body mass index (BMI) of 45.0 to 49.9 in adult, unspecified obesity type ([facility] V24, [facility] V28) (Primary Dx) 05/05/2025 2:40 PM EDT - 05/05/2025 11:59 PM EDT Hospital Encounter [facility] Xray [address] [place] [phone] Discharge Disposition: Home or Self Care from Last 3 Months Surgical History Surgery Date Site/Laterality Comments EYE SURGERY RETINAL DETACHMENT AMPUTATION [facility]KA Medical History Medical History Date Comments Other and unspecified hyperlipidemia 04/18/2005 DX:Other and unspecified hyperlipidemia Morbid obesity ([facility] V24, [facility] V28) 04/18/2005 DX:Morbid obesity (HCC) Type II or unspecified type diabetes mellitus without mention of complication, not stated as uncontrolled 04/18/2005 DX:Type II or unspecified ty pe diabetes mellitus without mention of complication, not stated as uncontrolled Type 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, uncontrolled(250.42) ([facility] V24, [facility] V28) 02/01/2007 DX:Type II or unspecified ty pe diabetes mellitus with renal manifestations, uncontrolled(250.42) ([facility]) Reflux 07/27/07 DX:Reflux Essential hypertension, benign 05/17/07 D X:Essential hypertension, benign Essential hypertension, benign 05/17/07 D X:Essential hypertension, benign Preglaucoma 07/27/07 DX:Preglaucoma Chronic kidney disease CKD (chronic kidney disease) stage 3, GFR 30-59 ml/min ([facility] V24, [facility] V28) per h&p CVA (cerebral vascular accid ent) ([facility] V24, [facility] V28) right sided weakness Retinopathy due to secondary diabetes mellitus ([facility] V24, [facility] V28) Family History Medical History Relation Name [...] care for your loved ones. For example, childcare center director or elderly care for an older [...] F) 08/04/2025 1:36 PM EST Respiratory Rate 18 05/22/2025 7:45 AM EDT Oxygen Saturation 99% 05/22/2025 7:45 AM EDT Inhaled Oxygen Concentration - - Weight 137 kg (303 lb) 08/04/2025 1:36 PM EST Height 175.3 cm (5' 9 ) 08/04/2025 1:36 PM EST Body Mass Index 44.75 08/04/2025 1:36 PM EST Plan of Treatment Upcoming Encounters Date Type Department Care Team (Late st Contact Info) Description 09/21/2025 2:00 PM EST Nutrition Bariatric Surgery - [address] [phone] Carmel Blake, CASIMIRO [address] [phone] 11/09/2025 12:45 PM EDT Office Visit Bariatric Surgery [address] [phone] Makenzie Rodriguez MD [address] [place] [phone] Health Maintenance Due Date Last Done [...] Vaccine ( - 2024-2 6 season) 2025 Social Influencers of Health Screening 05/21/2026 05/21/2025 Diabetes: Annual GFR (Glomerular Filtration Rate) 05/22/2026 05/22/2025, 05/05/2025 Hypertension/CHF/CAD Annual BMP Blood Test 05/22/2026 05/22/2025, 05/05/2025 RSV Immunization Adult Patients (1 - 1-dose 75+ series) 2059 Influenza Vaccine Completed 06/24/2025, 05/27/2024, 05/21/2023 HIB Vaccines Aged Out No longer eligi [...] ENDOTRACHEAL(NO CHARGE) Routine 05/21/2025 11:34 AM EDT [place] [facility] SURGICAL GASTRIC RESTRICTIVE PROCEDURE LONGITUDINAL GASTRECTOMY [...] of5 resultswithin the time period is included. [facility] Signature Glucose POCT 183(H) 70 - 100 mg/dL 05/22/2025 11:07 AM EDT [facility] ([facility] Blood Capillary blood specimen / Unknown 05/22/2025 11:06 AM EDT 05/22/2025 11:08 AM EDT us Makenzie Rodriguez MD LAB POINT OF CA RE TEST DOCKED DEVICE UNSOLICITED RESULTS Final Result [facility] [address] [place] [address], [place] [phone] * (ABNORMAL) CBC auto differential (05/22/2025 8:02 AM EDT) Only the most recent of2 resultswithin the time period is included. WBC 10.3 4.8 - 10.8 K/mcL LAB HEMETOLOGY METHOD 05/22/2025 8:[address] [facility] RBC 4.10(L) 4.50 - 5.50 M/mcL LAB HEMETOLOGY METHOD 05/22/2025 8:33 AM [facility] Hemoglobin 12.1(L) 13.5 - 17.5 g/dL LAB HEMETOLOGY METHOD 05/22/2025 8:[address] [facility] Hematocrit 35.9(L) 42.0 - 54.0 % LAB HEMETOLOGY METHOD 05/22/2025 8:[address] [facility] MCV 86.7 79.0 - 98.0 FL LAB HEMETOLOGY METHOD 05/22/2025 8:[address] [facility] MCH 29.2 27.0 - 32.0 pcg LAB HEMETOLOGY METHOD 05/22/2025 8:[address] [facility] MCHC 33.7 32.0 - 37.0 g/dL LAB HEMETOLOGY METHOD 05/22/2025 8:[address] [facility] RDW 13.1 11.0 - 15.0 % LAB HEMETOLOGY METHOD 05/22/2025 8:[address] [facility] Platelets 332 130 - 400 K/mcL LAB HEMETOLOGY METHOD 05/22/2025 8:33 AM [facility] MPV 9.5 7.0 - 11.0 FL LAB HEMETOLOGY METHOD 05/22/2025 8:33 AM [facility] NRBC 0.0 <1.0 % LAB HEMETOLOGY METHOD 05/22/2025 8:33 AM [facility] NRBC Absolute 0.00 <0.10 K/mcL LAB HEMETOLOGY METHOD 05/22/2025 8:33 AM [facility] Neutrophils Relative 75.8 % LAB HEMETOLOGY METHOD 05/22/2025 8:33 AM [facility] Lymphocytes Relative 15.9 % LAB HEMETOLOGY METHOD 05/22/2025 8:33 AM [facility] Monocytes Relative 7.8 % LAB HEMETOLOGY METHOD 05/22/2025 8:33 AM [facility] Eosinophils Relative 0.1 % LAB HEMETOLOGY METHOD 05/22/2025 8:33 AM [facility] Basophils Relative 0.2 % LAB HEMETOLOGY METHOD 05/22/2025 8:33 AM [facility] Immature Granulocytes Relative 0.2 % LAB HEMETOLOGY METHOD 05/22/2025 8:33 AM [facility] Neutrophils Absolute 7.78(H) 1.50 - 7.00 K/mcL LAB HEMETOLOGY METHOD 05/22/2025 8:33 AM [facility] Lymphocytes Absolute 1.63 1.00 - 5.00 K/mcL LAB HEMETOLOGY METHOD 05/22/2025 8:33 AM [facility] Monocytes Absolute 0.80 0.20 - 1.00 K/mcL LAB HEMETOLOGY METHOD 05/22/2025 8:33 AM [facility] Eosinophils Absolute 0.01 0.00 - 0.50 K/mcL LAB HEMETOLOGY METHOD 05/22/2025 8:[address] [facility] Basophils Absolute 0.02 0.00 - 0.20 K/mcL LAB HEMETOLOGY METHOD 05/22/2025 8:[address] [facility] Immature Granulocytes Absolute 0.02 0.00 - 0.03 [facility] LAB HEMETOLOGY METHOD 05/22/2025 8:[address] [facility] Blood Venous blood specimen / Unknown Venipuncture / Unknown 05/22/2025 8:02 AM EDT 05/22/2025 8:21 AM EDT us Yolette URIBE LAB BLOOD ORDERABLES Final Res ult Performing Organization Address City/[facility]/ZIP Co de Phone Number [facility] [address] [place] [address], [place] [phone] * (ABNORMAL) Magnesium (05/22/2025 8:02 AM EDT) Magnesium 1.6(L) 1.9 - 2.6 mg/dL LAB CHEMISTRY METHOD 05/22/2025 8:[address] [facility] Blood Venous blood specimen / Unknown Venipuncture / Unknown 05/22/2025 8:02 AM EDT 05/22/2025 8:21 AM EDT us Yolette URIBE LAB BLOOD ORDERABLES Final Res ult [facility] [address] [place] [address], [place] [phone] * (ABNORMAL) Basic metabolic panel (05/22/2025 8:02 AM EDT) Sodium 137 133 - 145 mmol/L LAB CHEMISTRY METHOD 05/22/2025 8:[address] [facility] Potassium 4.7 3.5 - 5.5 mmol/L LAB CHEMISTRY METHOD 05/22/2025 8:53 AM [facility] Chloride 105 96 - 110 mmol/L LAB CHEMISTRY METHOD 05/22/2025 8:53 AM [facility] CO2 26 21 - 32 mmol/L LAB CHEMISTRY METHOD 05/22/2025 8:53 AM [facility] Anion Gap 6 3 - 11 LAB CHEMISTRY METHOD 05/22/2025 8:53 AM [facility] Glucose 187(H) 70 - 100 mg/dL LAB CHEMISTRY METHOD 05/22/2025 8:53 AM [facility] BUN 21 5 - 25 mg/dL LAB CHEMISTRY METHOD 05/22/2025 8:53 AM [facility] Creatinine 1.19 0.70 - 1.30 mg/dL LAB CHEMISTRY METHOD 05/22/2025 8:53 AM [facility] eGFR 79 >=60 mL/min/1. 73m2 LAB CHEMISTRY METHOD 05/22/2025 8:53 AM [facility] Comment:Calculation based on the Chronic Kidney Disease Epidemiology Collaboration (CKD-EPI) equation refit without adjustment for race. BUN/Creatinine Ratio 17.6 LAB CHEMISTRY METHOD 05/22/2025 8:53 AM [facility] Calcium 9.2 8.5 - 10.5 mg/dL LAB CHEMISTRY METHOD 05/22/2025 8:53 AM [facility] Blood Venous blood specimen / Unknown Venipuncture / Unknown 05/22/2025 8:02 AM EDT 05/22/2025 8:21 AM EDT us Yolette URIBE LAB BLOOD ORDERABLES Final Res ult [facility] [address] [place] [address], * Tissue exam (05/21/2025 12:59 PM EDT) [...] consist of red, bilious and bloody material. Music Historian sections are submitted in one cassette to [...] Final Result [facility] [address] [place] [address], * TH AN ENDOTRACHEAL(NO CHARGE) (05/21/2025 11:34 AM EDT) Narrative Doreen Gordon CRNA - 05/21/2025 11:34 AM EDT Doreen Gordon CRNA 05/21/2025 11:36 AM General Information and Staff Patient location during procedure: OR Resident/METAL FABRICATOR WELDER: Doreen Gordon CRNA Performed: resident/METAL FABRICATOR WELDER/CAA Performed by: Doreen Gordon CRNA Authorized by: [...] AM EDT No acute pulmonary disease. Code 74228 -------- FINAL REPORT -------- Dictated By: Reji Nicholson Dictated Date: 05/06/2025 07:50 ET Assigned Physician: Reji Nicholson Reviewed and Electronically Signed By: Reji Nicholson Signed Date: 05/06/2025 07:51 ET Workstation ID: [id number] Transcribed By: Self Edit Transcribed Date: 05/06/2025 [...] clear. IMPRESSION: No acute pulmonary disease. Code 36231 -------- FINAL REPORT -------- Dictated By: Reji Nicholson Dictated Date: 05/06/2025 07:50 ET Assigned Physician: Reji Nicholson Reviewed and Electronically Signed By: Reji Nicholson Signed Date: 05/06/2025 07:51 ET Workstation ID: [id number] Transcribed By: Self Edit Transcribed Date: 05/06/2025 07:50 ET Makenzie Rodriguez MD IMG XR PROCEDURES Final Result * ECG 12 lead (05/05/2025 2:34 PM EDT) Ventricular Rate ECG 78 BPM GEMUSE Atrial Rate 78 BPM GEMUSE P-R Interval 170 ms GEMUSE QRS Duration 86 ms GEMUSE Q-T Interval 356 ms GEMUSE QTc 405 ms GEMUSE P Wave Blount 46 degrees GEMUSE R Blount -49 degrees GEMUSE T Blount 17 degrees GEMUSE ECG Interpretation Normal sinus [...] and screen (05/05/2025 2:18 PM EDT) Pathologist [facility] O 05/06/2025 9:[address] [facility] Rh Type Positive 05/06/2025 9:[address] [facility] Antibody Screen Negative 05/06/2025 9:[address] [facility] Blood Venous blood specimen / Unknown Venipuncture / Unknown 05/05/2025 2:18 PM EDT 05/05/2025 4:17 PM EDT us Makenzie Rodriguez MD LAB BLOOD BANK TEST ORD ERABLES Final Result [facility] [address] [place] [address], [place] [phone] * (ABNORMAL) CMP (05/05/2025 2:18 PM EDT) Pathologist [facility] Sodium 139 133 - 145 mmol/L LAB CHEMISTRY METHOD 05/05/2025 4:42 PM [facility] Potassium 4.9 3.5 - 5.5 mmol/L LAB CHEMISTRY METHOD 05/05/2025 4:42 PM [facility] Chloride 105 96 - 110 mmol/L LAB CHEMISTRY METHOD 05/05/2025 4:42 PM [facility] CO2 29 21 - 32 mmol/L LAB CHEMISTRY METHOD 05/05/2025 4:42 PM [facility] Anion Gap 5 3 - 11 LAB CHEMISTRY METHOD 05/05/2025 4:42 PM [facility] Glucose 119(H) 70 - 100 mg/dL LAB CHEMISTRY METHOD 05/05/2025 4:42 PM [facility] BUN 21 5 - 25 mg/dL LAB CHEMISTRY METHOD 05/05/2025 4:42 PM [facility] Creatinine 1.44(H) 0.70 - 1.30 mg/dL LAB CHEMISTRY METHOD 05/05/2025 4:42 PM [facility] eGFR 63 >=60 mL/min/1. 73m2 LAB CHEMISTRY METHOD 05/05/2025 4:42 PM [facility] Comment:Calculation based on the Chronic Kidney Disease Epidemiology Collaboration (CKD-EPI) equation refit without adjustment for race. BUN/Creatinine Ratio 14.6 LAB CHEMISTRY METHOD 05/05/2025 4:[address] [facility] Calcium 9.3 8.5 - 10.5 mg/dL LAB CHEMISTRY METHOD 05/05/2025 4:42 PM [facility] AST (SGOT) 20 10 - 42 unit/L LAB CHEMISTRY METHOD 05/05/2025 4:42 PM [facility] ALT (SGPT) 30 10 - 60 unit/L LAB CHEMISTRY METHOD 05/05/2025 4:42 PM [facility] Alkaline Phosphatase 128(H) 42 - 121 unit/L LAB CHEMISTRY METHOD 05/05/2025 4:42 PM [facility] Total Protein 6.8 6.0 - 8.0 g/dL LAB CHEMISTRY METHOD 05/05/2025 4:42 PM [facility] Albumin 3.5 3.2 - 5.0 g/dL LAB CHEMISTRY METHOD 05/05/2025 4:42 PM [facility] Total Bilirubin 0.7 0.0 - 1.4 mg/dL LAB CHEMISTRY METHOD 05/05/2025 4:42 PM [facility] Blood Venous blood specimen / Unknown Venipuncture / Unknown 05/05/2025 2:18 PM EDT 05/05/2025 4:17 PM EDT us Makenzie Rodriguez MD LAB BLOOD ORDERABLES Fi nal Result [facility] [address] [place] [address], from Last 3 Months Additional Health Concerns Active Problems Noted Date Diagnosed Date Autogenerated Problem 05/04/2025 Insurance [facility] [employer] PLAN Advance Directives * Full Code - [...] currently active code status orders. Care Teams Steam Crane Operator Relationship Specialty Start Date End Date Clay Guevara PA [address] [place] [phone] PCP - General Physician [employer] 01/05/25
== END 2025-08-04 15:49 | disposition home or self-care (01) ==
LOC: HO.ENCR 15:14
PROVIDERS: PCP Physician Assistant; Visit Provider Physician Assistant Medical
DX: E11.8 Type 2 diabetes mellitus with unspecified complications (principal); I10 Essential (primary) hypertension; E66.01 Morbid (severe) obesity due to excess calories; Z13.9 Encounter for screening, unspecified

== ENCOUNTER → 2025-08-04 15:14 | Outpatient (BNVA) | payer OTHER, SELFPAY | PROVIDERS: PCP Physician Assistant; Visit Provider Physician Assistant Medical | DX: E11.8 Type 2 diabetes mellitus with unspecified complications (principal); I10 Essential (primary) hypertension; E66.01 Morbid (severe) obesity due to excess calories; Z79.84 Long term (current) use of oral hypoglycemic drugs; Z79.899 Other long term (current) drug therapy | CPT/HCPCS: 82947; 83036; 99212 ==